=== PATIENT | female | born 1960 | race Caucasian/White ===

== ENCOUNTER 2020-05-17 15:03 | Inpatient (IN) | payer OTHER, SELFPAY ==
[2020-05-17 16:38] VITALS: BP 104/71; PULSE 109; RESP 20; TEMP 36.7; O2SAT 93; BMI 100.7
[2020-05-17 17:20] VITALS: BP 130/68; PULSE 108; RESP 19; TEMP 36.9; O2SAT 93
--- NOTE | 2020-05-17 17:26 | ECG_ITS ---
Test Reason : WEAKNESS Blood Pressure : / mmHG Vent. Rate : 105 BPM Atrial Rate : 105 BPM P-R Int : 166 ms QRS Dur : 098 ms QT Int : 378 ms P-R-T Axes : 080 103 054 degrees QTc Int : 499 ms Sinus tachycardia Right atrial enlargement Pulmonary disease pattern Incomplete right bundle branch block Septal infarct (cited on or before 26-JUN-2019) Abnormal ECG When compared with ECG of 26-JUN-2019 17:49, Incomplete right bundle branch block is now Present Questionable change in initial forces of Septal leads Referred By: Nichole Samuel Electronically Signed By:BRE HEATH MD
--- NOTE | 2020-05-17 17:26 | ED_ITS ---
HPI - General Adult General Chief complaint: General Medical Stated complaint: edema Time Seen by Provider: 05/17/20 18:34 Source: patient Mode of arrival: ambulatory Limitations: no limitations History of Present Illness HPI narrative: 59-year-old female with past medical history of bilateral lower extremity edema, type 2 diabetes presents with worsening edema and shortness of breath. She states that she has been using her Lasix more often and twice a day Over the past few weeks. She is supposed to take 40 mg per day but has been using 60 mg twice a day. she has shortness of breath on exertion, increased edema, swelling to her face and hands. She does not report any fevers or chills, chest pain pressure, palpitations, abdominal pain, abdominal distention, dysuria and hematuria. Onset (ago): week(s) Location: face, upper extremity and lower extremity Radiation: non-radiation Severity: moderate Severity scale (1-10): 7 Quality: aching Associated symptoms: shortness of breath Related Data Home Medications Medication Instructions Recorded Confirmed albuterol sulfate [Ventolin HFA] 2 puff INHALATION Q4H PRN 05/17/20 05/17/20 atorvastatin 10 mg tablet 10 mg PO DAILY 05/17/20 05/17/20 blood sugar diagnostic #10 ea 05/17/20 cholecalciferol (vitamin D3) 125 125 mcg PO DAILY 05/17/20 05/17/20 mcg (5,000 unit) capsule dulaglutide [Trulicity] 1.5 mg SUBCUT WE 05/17/20 05/17/20 furosemide 20 mg tablet 20 mg PO DAILY 05/17/20 05/17/20 furosemide 40 mg tablet 40 mg PO DAILY 05/17/20 05/17/20 lancets 28 gauge #100 ea 05/17/20 lisinopril 20 mg tablet 20 mg PO DAILY 05/17/20 05/17/20 metformin 1,000 mg PO BID 05/17/20 05/17/20 montelukast 10 mg tablet 10 mg PO DAILY 05/17/20 05/17/20 omeprazole 40 mg capsule,delayed 40 mg PO DAILY 05/17/20 05/17/20 release vitamin E 400 unit capsule 1 cap PO DAILY 05/17/20 05/17/20 Allergies Allergy/AdvReac Type Severity Reaction Status Date / Time erythromycin base Allergy Severe GI Verified 05/17/20 16:44 [From E-MYCIN] PAIN-SEVERE carvedilol Allergy Unknown upset Verified 01/18/20 00:00 stomach, sweats Review of Systems Review of Systems: Constitutional: Positive weight gain, No Fever, No Chills, No Night Sweats, No Fatigue, No Malaise ENT/Mouth: No Hearing loss, No Ear Pain, No Nasal Congestion, No Sinus Pain, No Hoarseness, No sore throat, No Rhinorrhea, No Swallowing Difficulty Eyes: No Eye Pain, No Swelling, No Redness, No Foreign Body, No Discharge, No Vision Changes Cardiovascular: positive edema to bilateral lower extremities and hands ,No Chest Pain, No SOB, No Dyspnea on Exertion, No Orthopnea, No Edema, No Palpitati ons Respiratory: positive shortness of breath, shortness of breath on exertion, No Cough, No Sputum, No Wheezing Gastrointestinal: No Nausea, No Vomiting, No Diarrhea, No Constipation, No abdominal Pain, No Hematochezia, No Melena Genitourinary: no irregular bleeding, No Dysuria, No Urinary Frequency, No Hematuria, No Urinary Incontinence, No Urgency, No Flank Pain, No Urinary Flow Changes, No Hesitancy Musculoskeletal: No joint pain, No Myalgias, No Joint Swelling Skin: No Skin Lesions, No rash Neuro: No Weakness, No Numbness, No Paresthesias, No Loss of Consciousness, No Dizziness, No Headache Psych: No Anxiety/Panic, No Depression, No SI/HI/AH/VH, No Social Issues Heme/Lymph: No Bruising, No Bleeding,No Lymphadenopathy Endocrine: No Polyuria, No Polydipsia, No Temperature Intolerance [facility] Past Medical History Attestation statement: The following information was validated with the patient. Medical History COPD (chronic obstructive pulmonary disease) Diabetes type 2, controlled Edema Tachycardia Social History Social History Alcohol intake: never Use of substances other than those prescribed or required for medical reasons: Yes Substance Use Type: Marijuana Substance Use Frequency: Occasionally Advance Directives: No Advance Directives Information Provided: Yes Physical Exam Vital Signs: Vital Signs: Last Vital Signs Temp 98.5 F 05/17/20 22:07 Pulse 100 05/17/20 22:07 Resp 19 05/17/20 22:07 BP 119/92 H 05/17/20 22:07 Pulse Ox 93 05/17/20 19:56 Body Mass Index 100.7 Appearance: Alert. Oriented X3. No acute distress. Head: Normal external exam. Normocephalic. Atraumatic. No [place] signs noted. No raccoon eyes noted Eyes: PERRLA. EOMI. Conjunctiva and sclera normal. Eyelids normal. ENT: TM's Normal. Pharynx normal. Uvula midline. Moist mucous membranes. No trismus noted. No drooling noted. No muffled voice noted. Neck: Normal inspection. Neck supple. No adenopathy. Thyroid Normal. No meningeal signs. No neck mass noted. CVS: Normal heart rate and rhythm. Heart sound normal. No murmurs noted. Pulses equal to all extremities. Respiratory: No respiratory distress. Painless inspiration. Breath sounds normal. No wheezes/rales/rhonchi noted. Chest nontender. No accessory muscle usage noted or decreased air movement noted. Abdomen: Soft and nontender. Bowel sounds normal in all 4 quadrants. No distention noted. No organomegaly noted. No visible injury noted. Back: No CVA tenderness. Full range of motion noted. Skin: Skin warm and dry. Normal skin color. Normal skin turgor. No rashes/lesions/lacerations noted. Extremities: No lower extremity edema. Extremities exhibit normal range of motion. Extremities nontender. Neuro: cranial nerves 2-12 intact, no focal neural deficits, strength 5/5 to all extremities, No motor deficit. No sensory deficit. Reflexes normal. Course Course Course Narrative: 59-year-old female with past medical history of edema, diabetes type 2 presents with Shortness of breath, shortness of breath on exertion, worsening edema To bilateral lower extremities, face, and hands. we will order chest x-ray, EKG, CBC, Chem 7, BNP. Plan of care to rule out ACS, CHF, and interstitial lung disease. She has +4 pitting edema to lower extremities up to the knee, hands are visibly swollen. Even though she did receive some Lasix earlier today we will give IV Lasix 60 mg. BNP elevated at 562 consistent with heart failure in the past June 26 2019 patient has had an elevated BNP in the 500 range but was never diagnosed with CHF. She was not admitted at that time. While patient does have Lasix at home, she has been managing her own and titrating without discussing her plan with her primary care physician. As she is taking as much as 60 mg twice a day over the past week we will discuss this case with hospitalist. magnesium 1.3 repleted with 2 g IV, troponin negative. BUN 20, glucose 231. while she does have a heart score of 4, ACS is highly unlikely Discussion with hospitalist regarding plan of care, plan is to admit for diuresis for CHF. Consultations Consultation #1: Tc Time: 22:00 Medical Decision Making Differential Diagnosis Differential Diagnosis: CHF, pneumonia, pulmonary edema, ACS Medical Records Medical records reviewed: Yes I reviewed the patient's medical records. Lab Data Lab results reviewed: Yes I reviewed the patient's lab results. Result diagrams: 05/17/20 20:16 05/17/20 20:16 Labs: Lab Results 05/17/20 05/17/20 05/17/20 Range/Units 18:00 18:00 18:00 WBC (4.8-10.8) X10*3/uL RBC (4.20-5.50) X10*6/uL Hgb (12.0-16.0) g/dl Hct (37-47) % MCV (80-98) fL MCH (27.0-33.0) pg MCHC (31.0-35.0) g/dl RDW (11.0-16.0) % Plt Count (160-400) X10*3/uL MPV (9.4-12.3) fL Immature Gran % (Auto) (0.0-0.4) % Neut % (Auto) (45-73) % Lymph % (Auto) (20-40) % Crook % (Auto) (2-11) % Eos % (Auto) (0-4) % Baso % (Auto) (0-2) % Lymph # (Auto) (1.2-4.9) X10*3/uL [place] # (Auto) (0.1-1.2) X10*3/uL Eos # (Auto) (0.0-0.4) X10*3/uL Baso # (Auto) (0.0-0.2) X10*3/uL Abs Immat Gran (auto) (0.00-0.03) X10*3/uL Absolute Neuts (auto) (2.0-8.3) X10*3/uL Absolute Nucleated RBC (0.0-0.012) X10*3/uL Nucleated RBC % (auto) (0.0-0.2) /100WBC Sodium (135-145) mmol/L Potassium (3.3-5.1) mmol/l Chloride (96-108) mmol/L Carbon Dioxide (22-29) mmol/L Anion Gap (12-20) BUN (9-16) mg/dL Creatinine (0.5-1.4) mg/dL Estim Creat Clear Calc Estimated GFR Random Glucose (60-115) mg/dL Calcium (8.4-10.2) mg/dL Magnesium 1.3 L* (1.6-2.6) mg/dL Troponin I High Sens 12.3 (<3.5-17.0) ng/L B-Natriuretic Peptide 562 H (<100) pg/mL Urine Color Urine Appearance Urine pH (5.0-8.0) Ur Specific [employer] (1.005-1.025) Urine Protein (NEG-TRACE) MG/DL Urine Glucose (UA) (NEG) MG/DL Urine Ketones (NEG) MG/DL Urine Blood (NEG) Urine Nitrite (NEG) Ur Leukocyte Esterase (NEG) COVID-19 (TIM) (Negative) COVID-19 Clin Com 05/17/20 05/17/20 05/17/20 Range/Units 18:53 20:16 20:16 WBC 10.5 (4.8-10.8) X10*3/uL RBC 4.46 (4.20-5.50) X10*6/uL Hgb 13.5 (12.0-16.0) g/dl Hct 42.2 (37-47) % MCV 94.6 (80-98) fL MCH 30.3 (27.0-33.0) pg MCHC 32.0 (31.0-35.0) g/dl RDW 15.2 (11.0-16.0) % Plt Count 221 (160-400) X10*3/uL MPV 11.2 (9.4-12.3) fL Immature Gran % (Auto) 0.5 H (0.0-0.4) % Neut % (Auto) 70.8 (45-73) % Lymph % (Auto) 20.5 (20-40) % [place]ok % (Auto) 6.9 (2-11) % Eos % (Auto) 1.0 (0-4) % Baso % (Auto) 0.3 (0-2) % Lymph # (Auto) 2.1 (1.2-4.9) X10*3/uL [place] # (Auto) 0.7 (0.1-1.2) X10*3/uL Eos # (Auto) 0.1 (0.0-0.4) X10*3/uL Baso # (Auto) 0.0 (0.0-0.2) X10*3/uL Abs Immat Gran (auto) 0.05 H (0.00-0.03) X10*3/uL Absolute Neuts (auto) 7.4 (2.0-8.3) X10*3/uL Absolute Nucleated RBC 0.000 (0.0-0.012) X10*3/uL Nucleated RBC % (auto) 0.0 (0.0-0.2) /100WBC Sodium 142 (135-145) mmol/L Potassium 3.5 (3.3-5.1) mmol/l Chloride 99 (96-108) mmol/L Carbon Dioxide 29 (22-29) mmol/L Anion Gap 18 (12-20) BUN 20 H (9-16) mg/dL Creatinine 0.91 (0.5-1.4) mg/dL Estim Creat Clear Calc 140.0 Estimated GFR > 60 Random Glucose 231 H (60-115) mg/dL Calcium 8.3 L (8.4-10.2) mg/dL Magnesium (1.6-2.6) mg/dL Troponin I High Sens (<3.5-17.0) ng/L B-Natriuretic Peptide (<100) pg/mL Urine Color YELLOW Urine Appearance CLEAR Urine pH 6.5 (5.0-8.0) Ur [employer] 1.020 (1.005-1.025) Urine Protein TRACE (NEG-TRACE) MG/DL Urine Glucose (UA) NEG (NEG) MG/DL Urine Ketones NEG (NEG) MG/DL Urine Blood NEG (NEG) Urine Nitrite NEG (NEG) Ur Leukocyte Esterase NEG (NEG) COVID-19 (TIM) (Negative) COVID-19 Clin Com 05/17/20 Range/Units 22:06 WBC (4.8-10.8) X10*3/uL RBC (4.20-5.50) X10*6/uL Hgb (12.0-16.0) g/dl Hct (37-47) % MCV (80-98) fL MCH (27.0-33.0) pg MCHC (31.0-35.0) g/dl RDW (11.0-16.0) % Plt Count (160-400) X10*3/uL MPV (9.4-12.3) fL Immature Gran % (Auto) (0.0-0.4) % Neut % (Auto) (45-73) % Lymph % (Auto) (20-40) % [place] % (Auto) (2-11) % Eos % (Auto) (0-4) % Baso % (Auto) (0-2) % Lymph # (Auto) (1.2-4.9) X10*3/uL [place] # (Auto) (0.1-1.2) X10*3/uL Eos # (Auto) (0.0-0.4) X10*3/uL Baso # (Auto) (0.0-0.2) X10*3/uL Abs Immat Gran (auto) (0.00-0.03) X10*3/uL Absolute Neuts (auto) (2.0-8.3) X10*3/uL Absolute Nucleated RBC (0.0-0.012) X10*3/uL Nucleated RBC % (auto) (0.0-0.2) /100WBC Sodium (135-145) mmol/L Potassium (3.3-5.1) mmol/l Chloride (96-108) mmol/L Carbon Dioxide (22-29) mmol/L Anion Gap (12-20) BUN (9-16) mg/dL Creatinine (0.5-1.4) mg/dL Estim Creat Clear Calc Estimated GFR Random Glucose (60-115) mg/dL Calcium (8.4-10.2) mg/dL Magnesium (1.6-2.6) mg/dL Troponin I High Sens (<3.5-17.0) ng/L B-Natriuretic Peptide (<100) pg/mL Urine Color Urine Appearance Urine pH (5.0-8.0) Ur [employer] (1.005-1.025) Urine Protein (NEG-TRACE) MG/DL Urine Glucose (UA) (NEG) MG/DL Urine Ketones (NEG) MG/DL Urine Blood (NEG) Urine Nitrite (NEG) Ur Leukocyte Esterase (NEG) COVID-19 (TIM) Negative (Negative) COVID-19 Clin Com See Note Imaging Data Chest x-ray: Attestation: I personally reviewed and interpreted this imaging study as follows: Radiologist's impression: TECHNIQUE: PA and lateral views of the chest were obtained. FINDINGS: The cardiac silhouette is prominent, though stable. The mediastinal and hilar contours are unremarkable. There are neither pleural effusions nor pneumothoraces. There are no consolidations. There is mild atelectasis or scarring at the right lung base. There is again noted to be a nodular density within the right midlung overlapping the anterior right fourth rib. The osseous structures are unremarkable. XR/XR chest 2V IMPRESSION: No consolidations. Mild atelectasis or scarring at the right lung base. 4 mm nodular density overlying the mid right lung unchanged from prior exam. Consider correlation with either bilateral oblique views or a chest CT for further tissue characterization. CT scan - chest: Attestation: I personally reviewed and interpreted this imaging study as follows: Radiologist's impression: FINDINGS: LUNGS: Lung nodules: Persistent 7 mm smooth bordered lung nodule right upper lobe axial image 21 series 4. This is unchanged since CAT scan 06/26/2019. Stability indicates this is a benign nodule. No additional lung nodules. No focal consolidation. No interstitial lung disease. No bronchiectasis. MEDIASTINUM: No mediastinal mass or significant lymphadenopathy. Thyroid unremarkable. Trace pericardial effusion. Heart size is mildly enlarged. PLEURA: There is no pleural effusion. No pleural mass or thickening. AXILLA: No lymphadenopathy. UPPER ABDOMEN: Unremarkable. OSSEOUS STRUCTURES: Multilevel degenerative spondylosis of the spine. CT/CT chest wo con IMPRESSION: 1. Stable 7 mm right upper lobe lung nodule unchanged since CAT scan 06/26/2019. Stability indicates a benign nodule. No new nodules present of the lung. 2. Cardiomegaly. Small pericardial effusion. ECG Data Attestation: I personally reviewed and interpreted this ECG as follows: Prior ECG tracings: available for review Interpretation: Vent. Rate : 105 BPM Atrial Rate : 105 BPM P-R Int : 166 ms QRS Dur : 098 ms QT Int : 378 ms P-R-T Axes : 080 103 054 degrees QTc Int : 499 ms Sinus tachycardia Right atrial enlargement Pulmonary disease pattern Incomplete right bundle branch block Possible Right ventricular hypertrophy Septal infarct (cited on or before 26-JUN-2019) Abnormal ECG When compared with ECG of 26-JUN-2019 17:49, Incomplete right bundle branch block is now Present Questionable change in initial forces of Septal leads date May 17, 2020 time 7:49 p.m. Scores Heart Score History: -1- moderately suspicious ECG: -1- non specific repolarization disturbance Age: -1- >45 - <65 Risk factory: -1- 1 or 2 risk factors Troponin: -0- < or = normal limit Score: 4 Risk: 16.6% Critical Care Time Critical Care Time Critical Care Time: Yes Total Critical Care Time: 60 Attestation: I have personally provided critical care time exclusive of time spent on separately billable procedures. Time includes review of laboratory data, radiology results, discussion with consultants, and monitoring for potential decompensation. Interventions were performed as documented. Discharge Plan Discharge Clinical Impression: Shortness of breath, Pedal edema Congestive heart failure Qualifiers: Heart failure type: systolic Heart failure chronicity: acute Qualified Code(s): I50.21 - Acute systolic (congestive) heart failure Patient Disposition: Admitted As Inpatient
[2020-05-17] MEDS: Furosemide 100 MG/10 ML VIAL 60 MG IVPUSH (18:04)
[2020-05-17 18:31] LABS: Magnesium 1.3 mg/dL (1.6-2.6)
[2020-05-17 18:35] LABS: B Type Natriuretic Peptide 562 pg/mL (<100)
[2020-05-17 18:36] LABS: Troponin-I High Sensitivity 12.3 ng/L (<3.5-17.0)
[2020-05-17 19:05] LABS: Glucose Urine UA NEG (NEG); Leukocyte Esterase Urine NEG (NEG); Nitrite Urine NEG (NEG); PH 6.5 (5.0-8.0); Urine Blood NEG (NEG); Urine Ketones NEG (NEG); Urine Protein TRACE MG/DL (NEG-TRACE)
[2020-05-17 19:07] LABS: Appearance Urine CLEAR; Color Urine YELLOW
[2020-05-17] MEDS: Acetaminophen 325 MG TABLET 650 MG PO (19:11)
[2020-05-17] MEDS: Magnesium Sulfate/H2O 2 GM/50 ML PIGGYBACK IV (19:12)
--- NOTE | 2020-05-17 19:20 | PC.NURSE ---
patient c/o 4-11/11 headache, provider notified and verbal order of tylenol 650 given, order placed, pt medicated with tylenol also mag started per order, will continue to monitor.
--- NOTE | 2020-05-17 19:41 | CT_ITS ---
EXAMINATION: CT CHEST WITHOUT CONTRAST CLINICAL INFORMATION: Lung nodule COMPARISON: CT of chest 06/26/2019 TECHNIQUE: Multidetector volumetric CT imaging of the chest was done. Axial MIP volume rendering provided. Sagittal and coronal reformatted images were obtained. This CT examination was performed using dose optimization techniques as appropriate, variously including the following: *Automated exposure control *Adjustment of mA and/or kV according to patient size (this includes techniques or standardized protocols for targeted exams where dose is matched to indication/reason for exam; i.e. extremities or head) *Use of iterative reconstruction technique DLP: 453 mGy-cm FINDINGS: LUNGS: Lung nodules: Persistent 7 mm smooth bordered lung nodule right upper lobe axial image 21 series 4. This is unchanged since CAT scan 06/26/2019. Stability indicates this is a benign nodule. No additional lung nodules. No focal consolidation. No interstitial lung disease. No bronchiectasis. MEDIASTINUM: No mediastinal mass or significant lymphadenopathy. Thyroid unremarkable. Trace pericardial effusion. Heart size is mildly enlarged. PLEURA: There is no pleural effusion. No pleural mass or thickening. AXILLA: No lymphadenopathy. UPPER ABDOMEN: Unremarkable. OSSEOUS STRUCTURES: Multilevel degenerative spondylosis of the spine. CT/CT chest wo con IMPRESSION: 1. Stable 7 mm right upper lobe lung nodule unchanged since CAT scan 06/26/2019. Stability indicates a benign nodule. No new nodules present of the lung. 2. Cardiomegaly. Small pericardial effusion.
[2020-05-17 19:56] VITALS: BP 123/59; PULSE 100; RESP 18; TEMP 36.9; O2SAT 93
[2020-05-17 20:22] LABS: Basophils Percent Auto 0.3 % (0-2); Eosinophils Absolute Auto 0.1 X10*3/uL (0.0-0.4); Hematocrit 42.2 % (37-47); Hemoglobin 13.5 g/dl (12.0-16.0); Imm Gran Abs Auto 0.05 X10*3/uL (0.00-0.03); Imm Gran Pct Auto 0.5 % (0.0-0.4); Lymphocytes Absolute Auto 2.1 X10*3/uL (1.2-4.9); Lymphocytes Percent Auto 20.5 % (20-40); MANUAL DIFF FLAG NO; Mean Corpuscular Hemoglobin 30.3 pg (27.0-33.0); Mean Corpuscular Volume 94.6 fL (80-98); Mean Platelet Volume 11.2 fL (9.4-12.3); Monocytes Absolute Auto 0.7 X10*3/uL (0.1-1.2); Monocytes Percent Auto 6.9 % (2-11); Neutrophils Absolute Auto 7.4 X10*3/uL (2.0-8.3); Neutrophils Percent Auto 70.8 % (45-73); Platelet Count 221 X10*3/uL (160-400); Red Blood Count 4.46 X10*6/uL (4.20-5.50); Red Cell Distribution Width 15.2 % (11.0-16.0); White Blood Count 10.5 X10*3/uL (4.8-10.8)
[2020-05-17 20:42] LABS: Anion Gap 18 (12-20); Blood Urea Nitrogen 20 mg/dL (9-16); Calcium 8.3 mg/dL (8.4-10.2); Carbon Dioxide 29 mmol/L (22-29); Chloride 99 mmol/L (96-108); Estimated Glomerular Filt Rate > 60; Glucose Random 231 mg/dL (60-115); Potassium 3.5 mmol/l (3.3-5.1); Sodium 142 mmol/L (135-145)
[2020-05-17 22:07] VITALS: BP 119/92; PULSE 100; RESP 19; TEMP 36.9
--- NOTE | 2020-05-17 22:08 | PC.NURSE ---
vitals obtained, covid swab obtained, pt is angry that she is still in the ed and doesnt have a room yet, will notify charge nurse about patient concern, will continue to monitor.
[2020-05-17 22:28] LABS: COVID-19 Test Negative (Negative); IDNOW Serial# 9DD0AD1C
--- NOTE | 2020-05-17 22:55 | PC.NURSE ---
called floor to give report, nurse will call ed back
[2020-05-18] VITALS (7 sets, daily range): BP systolic 102–131; BP diastolic 58–85; PULSE 88–100; RESP 17–19; TEMP 36.1–36.4; O2SAT 91–93; BMI 49.1
[2020-05-18 00:56] LABS: Glucose, Whole Blood 248 mg/dL (60-115)
[2020-05-18] MEDS: 0.9 % Sodium Chloride Flush 3 ML SYRINGE IVFLUSH ×3 (00:59→22:09)
[2020-05-18] MEDS: Enoxaparin Sodium 40 MG/0.4 ML SYRINGE SUBCUT (00:59)
[2020-05-18] MEDS: Furosemide 40 MG/4 ML VIAL IVPUSH (00:59)
--- NOTE | 2020-05-18 04:44 | PM.IMHP ---
History of Present Illness Date of Service: 05/17/20 Chief Complaint: leg swelling this is a 59-year-old female with past medical history of COPD, diabetes, hypertension, sleep apnea on CPAP, seasonal allergies, who presents to the hospital with complaints of lower extremity edema. Patient reports that her symptoms have been going on for about a month and half, she has been adjusting her furosemide by herself and taking between 60-80 mg which has been slightly helping but the swelling usually returns within few days. She reports dyspnea at baseline but increased this has increased recently. Dyspnea mostly with exertion but reports that that could be attributed to her allergies as well as housecleaning. She denies any orthopnea or PND, denies any chest pain or palpitations. She has no fever or chills, abdominal pain, no cough, no sputum production, diarrhea constipation, no urinary symptoms. patient does take diuretic at baseline but is not sure if she has congestive heart failure On arrival to the ED hemodynamically stable with no significant abnormal vitals. Labs are significant for BNP of 562, magnesium of 1.[address] shows stable 7 mm right upper lobe lung nodule, cardiomegaly, with small pericardial effusion past medical history: COPD/asthma, diabetes, hypertension, sleep apnea on CPAP, seasonal allergies, bronchitis Surgical history: Carpal tunnel, tubal ligation Social history: Significant for [place], diabetes, and pancreatic cancer in mother Shows show history: Comes from home, former smoker, denies any alcohol and smokes about 1 marijuana sometimes. Review of Systems Review of Systems: Yes all other systems are reviewed and are negative [facility] Medical History COPD (chronic obstructive pulmonary disease) Diabetes type 2, controlled Edema Tachycardia Social History Household Members: Other Housing: House Housing Other:: Granddaughter Do you presently have visiting nurse or other home services: No Alcohol intake: never Smoking Status: Former smoker Smoking Quit Date: 04/22/2019 Use of substances other than those prescribed or required for medical reasons: No Substance Use Type: Marijuana Substance Use Frequency: Occasionally Do you feel safe in your current relationship?: No Is there a partner from a previous relationship who is making you feel unsafe now?: No Are you made to feel afraid or neglected: No Advance Directives: No Advance Directives Information Provided: Yes Do you have thoughts of harming others: None Do you have a plan to hurt others: No Plan Recently lost weight without trying: No Meds Allergies Allergy/AdvReac Type Severity Reaction Status Date / Time erythromycin base Allergy Severe GI Verified 05/17/20 16:44 [From E-MYCIN] PAIN-SEVERE carvedilol Allergy Unknown upset Verified 01/18/20 00:00 stomach, sweats Home Medications Medication Instructions Recorded Confirmed Type albuterol sulfate [Ventolin HFA] 2 puff INHALATION Q4H PRN 05/17/20 05/17/20 History atorvastatin 10 mg tablet 10 mg PO DAILY 05/17/20 05/17/20 History blood sugar diagnostic #10 ea 05/17/20 History cholecalciferol (vitamin D3) 125 125 mcg PO DAILY 05/17/20 05/17/20 History mcg (5,000 unit) capsule dulaglutide [Trulicity] 1.5 mg SUBCUT WE 05/17/20 05/17/20 History furosemide 20 mg tablet 20 mg PO DAILY 05/17/20 05/17/20 History furosemide 40 mg tablet 40 mg PO DAILY 05/17/20 05/17/20 History lancets 28 gauge #100 ea 05/17/20 History lisinopril 20 mg tablet 20 mg PO DAILY 05/17/20 05/17/20 History metformin 1,000 mg PO BID 05/17/20 05/17/20 History montelukast 10 mg tablet 10 mg PO DAILY 05/17/20 05/17/20 History omeprazole 40 mg capsule,delayed 40 mg PO DAILY 05/17/20 05/17/20 History release vitamin E 400 unit capsule 1 cap PO DAILY 05/17/20 05/17/20 History Physical Exam Vital Signs and Narrative: Vital Signs: Last Vital Signs Temp 97.6 F 05/18/20 03:17 Pulse 100 05/18/20 03:17 Resp 19 05/18/20 03:17 BP 102/68 05/18/20 03:17 Pulse Ox 93 05/18/20 03:17 Body Mass Index 49.1 Const: General: cooperative and no acute distress Orientation/consciousness: patient oriented x3 Eyes: General: appearance normal, both eyes and all related structures Pupils: Equal, round and reactive pupils present Resp: Effort & Inspection: normal respiratory effort and able to speak in complete sentences Auscultation: clear to auscultation bilaterally Cardio: Rate: regular rate Rhythm: regular rhythm GI: Palpation (GI): Soft to palpation Auscultation: normal bowel sounds Skin: General skin exam: no rashes or lesions noted Neuro: General: patient oriented x3 Cranial nerves: Yes Equal, round and reactive pupils present Cognition (Neuro): normal cognition Extrem: Other: 1+ pedal edema bilaterally, General: Yes normal to inspection Results Labs CBC and Chem 7: 05/17/20 20:16 05/17/20 20:16 Labs: Laboratory Results - last 24 hr 05/17/20 05/17/20 05/17/20 18:00 18:00 18:00 MCV MCH MCHC RDW Plt Count MPV Immature Gran % (Auto) Neut % (Auto) Lymph % (Auto) [place] % (Auto) Eos % (Auto) Baso % (Auto) Lymph # (Auto) [place] # (Auto) Eos # (Auto) Baso # (Auto) Abs Immat Gran (auto) Absolute Neuts (auto) Absolute Nucleated RBC Nucleated RBC % (auto) Anion Gap Estim Creat Clear Calc Estimated GFR POC Glucose Random Glucose Calcium Magnesium 1.3 L* Troponin I High Sens 12.3 B-Natriuretic Peptide 562 H Urine Color Urine Appearance Urine pH Ur Specific [place] Urine Protein Urine Glucose (UA) Urine Ketones Urine Blood Urine Nitrite Ur Leukocyte Esterase COVID-19 (TIM) COVID-19 Clin Com 05/17/20 05/17/20 05/17/20 18:53 20:16 20:16 MCV 94.6 MCH 30.3 MCHC 32.0 RDW 15.2 Plt Count 221 MPV 11.2 Immature Gran % (Auto) 0.5 H Neut % (Auto) 70.8 Lymph % (Auto) 20.5 [place] % (Auto) 6.9 Eos % (Auto) 1.0 Baso % (Auto) 0.3 Lymph # (Auto) 2.1 [place] # (Auto) 0.7 Eos # (Auto) 0.1 Baso # (Auto) 0.0 Abs Immat Gran (auto) 0.05 H Absolute Neuts (auto) 7.4 Absolute Nucleated RBC 0.000 Nucleated RBC % (auto) 0.0 Anion Gap 18 Estim Creat Clear Calc 140.0 Estimated GFR > 60 POC Glucose Random Glucose 231 H Calcium 8.3 L Magnesium Troponin I High Sens B-Natriuretic Peptide Urine Color YELLOW Urine Appearance CLEAR Urine pH 6.5 Ur Specific [place] 1.020 Urine Protein TRACE Urine Glucose (UA) NEG Urine Ketones NEG Urine Blood NEG Urine Nitrite NEG Ur Leukocyte Esterase NEG COVID-19 (TIM) COVID-19 Clin Com 05/17/20 05/18/20 22:06 00:53 MCV MCH MCHC RDW Plt Count MPV Immature Gran % (Auto) Neut % (Auto) Lymph % (Auto) [place] % (Auto) Eos % (Auto) Baso % (Auto) Lymph # (Auto) [place] # (Auto) Eos # (Auto) Baso # (Auto) Abs Immat Gran (auto) Absolute Neuts (auto) Absolute Nucleated RBC Nucleated RBC % (auto) Anion Gap Estim Creat Clear Calc Estimated GFR POC Glucose 248 H Random Glucose Calcium Magnesium Troponin I High Sens B-Natriuretic Peptide Urine Color Urine Appearance Urine pH Ur Specific [place] Urine Protein Urine Glucose (UA) Urine Ketones Urine Blood Urine Nitrite Ur Leukocyte Esterase COVID-19 (TIM) Negative COVID-19 Clin Com See Note Imaging Radiologist's Impressions: Impressions Chest X-Ray 05/17/20 17:27 IMPRESSION: No consolidations. Mild atelectasis or scarring at the right lung base. 4 mm nodular density overlying the mid right lung unchanged from prior exam. Consider correlation with either bilateral oblique views or a chest CT for further tissue characterization. Chest CT 05/17/20 19:41 IMPRESSION: 1. Stable 7 mm right upper lobe lung nodule unchanged since CAT scan 06/26/2019. Stability indicates a benign nodule. No new nodules present of the lung. 2. Cardiomegaly. Small pericardial effusion. Assessment and Plan (1) CHF exacerbation: Status: Acute (2) Hypomagnesemia: Status: Acute (3) Sleep apnea: Status: Acute (4) Hypertension: Status: Acute (5) COPD (chronic obstructive pulmonary disease): Status: Acute (6) Diabetes type 2, controlled: Status: Acute this is a 59-year-old female with past medical history of as above who presents to the hospital with lower extremity edema as well as worsening dyspnea # CHF exacerbation - patient has elevated BNP, lower extremity edema, as well as dyspnea - last echo done was in which showed normal ejection fraction at that time - high sensitivity troponin of 12, denies any chest pain, no palpitations. - Unclear if this is a new onset CHF or as history of CHF since she has been on Lasix plan: - Will start her on Lasix 40 IV b.i.d. - close monitoring of I&O, low-sodium diet, daily weight - echocardiogram - cardiology consult - repeat troponin # hypomagnesemia - repleted in the ED - will follow level in a.m. # diabetes - start on low-dose sliding scale insulin - diabetic diet # COPD - no evidence of exacerbation, although patient does have increased dyspnea it appears more secondary to CHF, has no increasing cough and no sputum production. - Will continu her home Singulair, and p.r.n. albuterol # sleep apnea - reports noncompliance with CPAP and is not interested in getting when here DVT prophylaxis: [place]
[2020-05-18 05:31] LABS: MANUAL DIFF FLAG NO
[2020-05-18 05:35] LABS: Basophils Percent Auto 0.4 % (0-2); Eosinophils Absolute Auto 0.1 X10*3/uL (0.0-0.4); Eosinophils Percent Auto 0.8 % (0-4); Hematocrit 41.4 % (37-47); Hemoglobin 13.3 g/dl (12.0-16.0); Imm Gran Abs Auto 0.04 X10*3/uL (0.00-0.03); Imm Gran Pct Auto 0.5 % (0.0-0.4); Lymphocytes Absolute Auto 2.2 X10*3/uL (1.2-4.9); Lymphocytes Percent Auto 25.4 % (20-40); Mean Corpuscular HGB Conc 32.1 g/dl (31.0-35.0); Mean Corpuscular Hemoglobin 30.6 pg (27.0-33.0); Mean Corpuscular Volume 95.2 fL (80-98); Mean Platelet Volume 10.9 fL (9.4-12.3); Monocytes Absolute Auto 0.6 X10*3/uL (0.1-1.2); Neutrophils Absolute Auto 5.7 X10*3/uL (2.0-8.3); Neutrophils Percent Auto 65.9 % (45-73); Platelet Count 202 X10*3/uL (160-400); Red Blood Count 4.35 X10*6/uL (4.20-5.50); Red Cell Distribution Width 15.2 % (11.0-16.0); White Blood Count 8.6 X10*3/uL (4.8-10.8)
[2020-05-18 06:00] LABS: Magnesium 1.8 mg/dL (1.6-2.6)
[2020-05-18 06:01] LABS: Anion Gap 15 (12-20); Blood Urea Nitrogen 20 mg/dL (9-16); Calcium 8.1 mg/dL (8.4-10.2); Carbon Dioxide 30 mmol/L (22-29); Chloride 98 mmol/L (96-108); Creatinine Clr Calc Pharmacy 93.1; Estimated Glomerular Filt Rate > 60; Glucose Random 206 mg/dL (60-115); Potassium 3.3 mmol/l (3.3-5.1); Sodium 140 mmol/L (135-145); Troponin-I High Sensitivity 9.9 ng/L (<3.5-17.0)
[2020-05-18] MEDS: Omeprazole 40 MG CAPSULE.DR PO (07:24)
[2020-05-18 07:47] LABS: Glucose, Whole Blood 171 mg/dL (60-115)
[2020-05-18] MEDS: lisinopriL 20 MG TABLET PO (08:35)
[2020-05-18] MEDS: Cholecalciferol (Vitamin D3) 25 MCG TABLET 125 MCG PO (08:36)
[2020-05-18] MEDS: Insulin Lispro 100 UNIT/ML 3 ML VIAL SUBCUT ×4 (08:36→22:05)
--- NOTE | 2020-05-18 10:57 | HO.PM.IMPN ---
Subjective Subjective Date of Service: 05/18/20 Interval History: no sob, hasnt peed much, le edema slightly better Cardiovascular Cardiovascular: Reports no additional cardiovascular complaints Respiratory Respiratory: Reports no additional respiratory complaints Physical Exam Vital Signs: Vital Signs: Last Vital Signs Temp 97.0 F 05/18/20 07:38 Pulse 88 05/18/20 08:35 Resp 18 05/18/20 07:38 BP 119/85 05/18/20 08:35 Pulse Ox 93 05/18/20 07:38 Body Mass Index 49.1 General: AO X 3, no acute distress Resp: CTA bilateral CVS: S1,S2,RRR, 3+ edema GI: soft, non tender, non distended Neuro: motor grossly intact Psych: appropriate affect Objective Data Current Medications Generic Name Dose Route Start Last Admin Trade Name Freq PRN Reason Stop Dose Admin Acetaminophen 650 mg 05/18/20 00:03 Acetaminophen 325 Mg Tablet PO Q6H PRN Pain, Mild (Pain Scale 1-3) Albuterol Sulfate 2 puff 05/18/20 00:03 Albuterol Sulfate 90 Mcg 8 Gm Inhaler INHALE Q4H PRN Shortness Of Breath Atorvastatin Calcium 10 mg 05/18/20 09:00 05/18/20 08:45 Atorvastatin Calcium 10 Mg Tablet PO Not Given DAILY SARAHI Docusate Sodium 100 mg 05/18/20 00:03 Docusate Sodium 100 Mg Capsule PO DAILY PRN Constipation Enoxaparin Sodium 40 mg 05/18/20 01:00 05/18/20 00:59 Enoxaparin Sodium 40 Mg/0.4 Ml Syringe SUBCUT 40 mg Q24H SARAHI Administration Furosemide 40 mg 05/18/20 00:03 05/18/20 00:59 Furosemide 40 Mg/4 Ml Vial IVPUSH 40 mg Q12H SARAHI Administration Protocol Insulin Human Lispro 0 unit 05/18/20 07:30 05/18/20 08:36 Insulin Lispro 100 Unit/Ml 3 Ml Vial SUBCUT 2 [facility] Administration Protocol Lisinopril 20 mg 05/18/20 09:00 05/18/20 08:35 Lisinopril 20 Mg Tablet PO 20 mg DAILY SARAHI Administration Protocol Montelukast Sodium 10 mg 05/18/20 09:00 05/18/20 08:45 Montelukast Sodium 10 Mg Tablet PO Not Given DAILY SARAHI Omeprazole 40 mg 05/18/20 06:30 05/18/20 07:24 Omeprazole 40 Mg Capsule.Dr PO 40 mg DAILY@0630 SARAHI Administration Ondansetron HCl 4 mg 05/18/20 00:03 Ondansetron Hcl 4 Mg/2 Ml Vial IVPUSH Q8H PRN Nausea and Vomiting Pharmacy Consult 1 each 05/17/20 21:37 Consult Rx Perform Med Rec MISCELLANE ONCE PRN Consult order Sodium Chloride 3 ml 05/18/20 00:03 05/18/20 08:36 0.9 % Sodium Chloride Flush 3 Ml Syringe IVFLUSH 3 ml QSHIFT SARAHI Administration Vitamin D 125 mcg 05/18/20 09:00 05/18/20 08:36 Cholecalciferol (Vitamin D3) 25 Mcg Tablet PO 125 mcg DAILY SARAHI Administration Labs CBC & Chem 7: 05/18/20 05:07 05/18/20 05:07 Assessment and Plan (1) CHF exacerbation: Status: Acute (2) Hypomagnesemia: Status: Acute (3) Sleep apnea: Status: Acute (4) Hypertension: Status: Acute (5) COPD (chronic obstructive pulmonary disease): Status: Acute (6) Diabetes type 2, controlled: Status: Acute Assessment and Plan: 59-year-old female presented to the hospital with lower extremity edema acute on chronic diastolic chf with right sided CHF and pulmonary HTN change to lasix drip, follow up echo, cardio DM insulin morbid obesity weight loss COPD stable sleep apnea - reports noncompliance with CPAP and is not interested in getting when here
[2020-05-18 11:53] LABS: Glucose, Whole Blood 188 mg/dL (60-115)
--- NOTE | 2020-05-18 13:05 | PM.CNCAR ---
History of Present Illness History of Present Illness Date of Consult: May 18, 2020 Requesting physician: Ru Flaherty Chief complaint: CHF exacerbation Narrative: Thank you for inviting us in consultation on Laura for management of right heart congestive heart failure. She is a 59-year-old woman with prior history of significant pulmonary hypertension by echocardiogram last June and RV enlargement and failure. Her BNP during that time was in the mid 500 range. She was then started on diuretic therapy and a BNP had improved in the mid 200 range. She was last seen by Dr. Cruz in the office in August at which time she was doing well. Workup included evaluation by pulmonary thromboembolic disease and this was negative. It was felt that her pulmonary hypertension was related to Pickwickian syndrome and cor pulmonale and sleep apnea. She is currently not able to tolerate CPAP therapy at home. Over the last 2 months she has noticed that she started getting increasing shortness of breath as well as leg edema, abdominal distension. She also notice of face to be getting puffy. She also noticed that she had gained about 15 lb and was not responding to oral diuretic therapy and therefore decided to call her physician's office. She was then referred to the emergency room. In the emergency room she was noted to be fluid overloaded and BNP was again elevated the mid 500 range and she was admitted. She was given IV diuresis with bolus Lasix dose. She has only had very tepid response to diuresis. She continues to remain fluid overloaded. Denies any palpitations, lightheadedness, syncope. She says recently she was cleaning a basement and was exposed to a lot of dust and felt that some of the shortness of breath could be related to wheezing with exposure to dust. Review of Systems Constitutional: Constitutional: Denies body ache(s), Reports fatigue, Denies fever(s), Reports snoring and Reports weight gain Eyes: Eyes: Reports no additional eye complaints ENT: Reports system reviewed and no additional complaints, except as documented Cardiovascular: Cardiovascular: Reports Abdominal Distension, Denies chest pain, Reports leg edema, Reports dyspnea and Reports dyspnea on exertion Respiratory: Respiratory: Reports cough, Reports dyspnea, Reports dyspnea on exertion, Reports snoring and Reports wheezing Gastrointestinal: Gastrointestinal: Reports no additional gastrointestinal complaints Neurologic: Reports system reviewed and no additional complaints, except as documented Psychiatric: Psychiatric: Reports anxiety Endocrine: Endocrine: Reports no additional endocrine complaints and Reports fatigue Hematologic/Lymphatic: Hematologic/Lymphatic: Reports no additional hematologic/lymphatic complaints Allergic/Immunologic: Allergic/Immunologic: Reports no additional allergic/immunologic complaints and Reports wheezing PMFSH Past Medical History Medical History COPD (chronic obstructive pulmonary disease) Diabetes type 2, controlled Edema Enlarged RV (right ventricle) Pulmonary hypertension Sleep apnea Tachycardia Social History Social History Household Members: Other Housing: House Housing Other:: Granddaughter Do you presently have visiting nurse or other home services: No Alcohol intake: never Smoking Status: Former smoker Smoking Quit Date: 04/22/2019 Use of substances other than those prescribed or required for medical reasons: No Substance Use Type: Marijuana Substance Use Frequency: Occasionally Currently Displaying Signs/Symptoms of Drug Intoxication Withdrawal: No Do you feel safe in your current relationship?: No Is there a partner from a previous relationship who is making you feel unsafe now?: No Are you made to feel afraid or neglected: No Advance Directives: No Advance Directives Information Provided: Yes Do you have thoughts of harming others: None Do you have a plan to hurt others: No Plan Recently lost weight without trying: No Meds Allergies Allergy/AdvReac Type Severity Reaction Status Date / Time erythromycin base Allergy Severe GI Verified 05/17/20 16:44 [From E-MYCIN] PAIN-SEVERE carvedilol Allergy Unknown upset Verified 01/18/20 00:00 stomach, sweats Home Medications Medication Instructions Recorded Confirmed Type albuterol sulfate [Ventolin HFA] 2 puff INHALATION Q4H PRN 05/17/20 05/17/20 History atorvastatin 10 mg tablet 10 mg PO DAILY 05/17/20 05/17/20 History blood sugar diagnostic #10 ea 05/17/20 History cholecalciferol (vitamin D3) 125 125 mcg PO DAILY 05/17/20 05/17/20 History mcg (5,000 unit) capsule dulaglutide [Trulicity] 1.5 mg SUBCUT WE 05/17/20 05/17/20 History furosemide 20 mg tablet 20 mg PO DAILY 05/17/20 05/17/20 History furosemide 40 mg tablet 40 mg PO DAILY 05/17/20 05/17/20 History lancets 28 gauge #100 ea 05/17/20 History lisinopril 20 mg tablet 20 mg PO DAILY 05/17/20 05/17/20 History metformin 1,000 mg PO BID 05/17/20 05/17/20 History montelukast 10 mg tablet 10 mg PO DAILY 05/17/20 05/17/20 History omeprazole 40 mg capsule,delayed 40 mg PO DAILY 05/17/20 05/17/20 History release vitamin E 400 unit capsule 1 cap PO DAILY 05/17/20 05/17/20 History Physical Exam Vital Signs: Vital Signs: Last Vital Signs Temp 97.2 F 05/18/20 11:13 Pulse 95 05/18/20 11:13 Resp 18 05/18/20 11:13 BP 108/64 05/18/20 11:13 Pulse Ox 91 L 05/18/20 11:13 Body Mass Index 49.1 Const: General: cooperative, no acute distress, alert and awake Nutritional Appearance: obese morbidly obese Orientation/consciousness: patient oriented x3 Limitations: no limitations HENMT: Head: Yes normal to inspection, Yes normocephalic and Yes atraumatic Eyes: General: appearance normal, both eyes and all related structures Neck: Neck: Yes trachea midline, Yes supple and Yes JVD (Till angle of the jaw in sitting position) Chest: Chest palpation & inspection: normal inspection of the chest Resp: Effort & Inspection: normal respiratory effort Auscultation: clear to auscultation bilaterally Cardio: Palpation: other (Cannot appreciate PMI) Rate: regular rate Rhythm: regular rhythm Heart sounds: S1 normal heart sound present and S2 normal heart sound present GI: Inspection: Yes distended and Yes obesity Auscultation: normal bowel sounds Skin: General skin exam: no rashes or lesions noted and no ecchymosis Neuro: General: patient oriented x3 and no focal motor deficits Extrem: General: Yes edema (Significant bilateral edema up to thigh) Psych: Appearance: grossly normal Results Labs and Meds Result diagrams: 05/18/20 05:07 05/18/20 05:07 Lab results: Laboratory Results - last 24 hr 05/17/20 05/17/20 05/17/20 18:00 18:00 18:00 WBC RBC Hgb Hct MCV MCH MCHC RDW Plt Count MPV Immature Gran % (Auto) Neut % (Auto) Lymph % (Auto) [place] % (Auto) Eos % (Auto) Baso % (Auto) Lymph # (Auto) [place] # (Auto) Eos # (Auto) Baso # (Auto) Abs Immat Gran (auto) Absolute Neuts (auto) Absolute Nucleated RBC Nucleated RBC % (auto) Sodium Potassium Chloride Carbon Dioxide Anion Gap BUN Creatinine Estim Creat Clear Calc Estimated GFR POC Glucose Random Glucose Calcium Magnesium 1.3 L* Troponin I High Sens 12.3 B-Natriuretic Peptide 562 H Urine Color Urine Appearance Urine pH Ur Specific [place] Urine Protein Urine Glucose (UA) Urine Ketones Urine Blood Urine Nitrite Ur Leukocyte Esterase COVID-19 (TMI) [employer] 05/17/20 05/17/20 05/17/20 18:53 20:16 20:16 WBC 10.5 RBC 4.46 Hgb 13.5 Hct 42.2 MCV 94.6 MCH 30.3 MCHC 32.0 RDW 15.2 Plt Count 221 MPV 11.2 Immature Gran % (Auto) 0.5 H Neut % (Auto) 70.8 Lymph % (Auto) 20.5 [place] % (Auto) 6.9 Eos % (Auto) 1.0 Baso % (Auto) 0.3 Lymph # (Auto) 2.1 [place] # (Auto) 0.7 Eos # (Auto) 0.1 Baso # (Auto) 0.0 Abs Immat Gran (auto) 0.05 H Absolute Neuts (auto) 7.4 Absolute Nucleated RBC 0.000 Nucleated RBC % (auto) 0.0 Sodium 142 Potassium 3.5 Chloride 99 Carbon Dioxide 29 Anion Gap 18 BUN 20 H Creatinine 0.91 Estim Creat Clear Calc 140.0 Estimated GFR > 60 POC Glucose Random Glucose 231 H Calcium 8.3 L Magnesium Troponin I High Sens B-Natriuretic Peptide Urine Color YELLOW Urine Appearance CLEAR Urine pH 6.5 Ur Specific [place] 1.020 Urine Protein TRACE Urine Glucose (UA) NEG Urine Ketones NEG Urine Blood NEG Urine Nitrite NEG Ur Leukocyte Esterase NEG COVID-19 (TIM) COVID-19 [employer] 05/17/20 05/18/20 05/18/20 22:06 00:53 05:07 WBC 8.6 RBC 4.35 Hgb 13.3 Hct 41.4 MCV 95.2 MCH 30.6 MCHC 32.1 RDW 15.2 Plt Count 202 MPV 10.9 Immature Gran % (Auto) 0.5 H Neut % (Auto) 65.9 Lymph % (Auto) 25.4 [place] % (Auto) 7.0 Eos % (Auto) 0.8 Baso % (Auto) 0.4 Lymph # (Auto) 2.2 [place] # (Auto) 0.6 Eos # (Auto) 0.1 Baso # (Auto) 0.0 Abs Immat Gran (auto) 0.04 H Absolute Neuts (auto) 5.7 Absolute Nucleated RBC 0.000 Nucleated RBC % (auto) 0.0 Sodium Potassium Chloride Carbon Dioxide Anion Gap BUN Creatinine Estim Creat Clear Calc Estimated GFR POC Glucose 248 H Random Glucose Calcium Magnesium Troponin I High Sens B-Natriuretic Peptide Urine Color Urine Appearance Urine pH Ur Specific [place] Urine Protein Urine Glucose (UA) Urine Ketones Urine Blood Urine Nitrite Ur Leukocyte Esterase COVID-19 (TIM) Negative COVID-[employer] Com See Note 05/18/20 05/18/20 05/18/20 05:07 05:07 05:07 WBC RBC Hgb Hct MCV MCH MCHC RDW Plt Count MPV Immature Gran % (Auto) Neut % (Auto) Lymph % (Auto) [place] % (Auto) Eos % (Auto) Baso % (Auto) Lymph # (Auto) [place] # (Auto) Eos # (Auto) Baso # (Auto) Abs Immat Gran (auto) Absolute Neuts (auto) Absolute Nucleated RBC Nucleated RBC % (auto) Sodium 140 Potassium 3.3 Chloride 98 Carbon Dioxide 30 H Anion Gap 15 BUN 20 H Creatinine 0.83 Estim Creat Clear Calc 93.1 Estimated GFR > 60 POC Glucose Random Glucose 206 H Calcium 8.1 L Magnesium 1.8 Troponin I High Sens 9.9 B-Natriuretic Peptide Urine Color Urine Appearance Urine pH Ur Specific [place] Urine Protein Urine Glucose (UA) Urine Ketones Urine Blood Urine Nitrite Ur Leukocyte Esterase COVID-19 (TIM) [employer] 05/18/20 05/18/20 07:41 11:30 WBC RBC Hgb Hct MCV MCH MCHC RDW Plt Count MPV Immature Gran % (Auto) Neut % (Auto) Lymph % (Auto) [place] % (Auto) Eos % (Auto) Baso % (Auto) Lymph # (Auto) [place] # (Auto) Eos # (Auto) Baso # (Auto) Abs Immat Gran (auto) Absolute Neuts (auto) Absolute Nucleated RBC Nucleated RBC % (auto) Sodium Potassium Chloride Carbon Dioxide Anion Gap BUN Creatinine Estim Creat Clear Calc Estimated GFR POC Glucose 171 H 188 H Random Glucose Calcium Magnesium Troponin I High Sens B-Natriuretic Peptide Urine Color Urine Appearance Urine pH Ur Specific [place] Urine Protein Urine Glucose (UA) Urine Ketones Urine Blood Urine Nitrite Ur Leukocyte Esterase COVID-19 (TIM) COVID-19 Clin Com EKG shows sinus rhythm with pulmonary disease pattern with right ventricular enlargement right atrial enlargement and nonspecific ST T wave changes Assessment and Plan (1) Right heart failure: Status: Acute Predominantly right heart failure syndrome secondary to RV enlargement and known prior history of significant pulmonary hypertension. Etiology of pulmonary hypertension is not clear, see below. Clinically appears to be significantly fluid overloaded. Agree with IV diuresis with Lasix drip. Start on 5 mg an hour and monitor strict intake and output chart. If remains with inadequate diuresis, will increase Lasix to 10 mg an hour. Continue to trend BMP and BNP. Daily weight monitoring needs to be pursued. In the long run treatment should be directed towards diagnosis of pulmonary hypertension appropriate treatment for the same. (2) Enlarged RV (right ventricle): Status: Acute Enlarged right ventricle secondary pulmonary hypertension. Prognosis is is limited in this situation. Treatment directed towards diagnosis is an appropriate treatment for pulmonary hypertension. (3) Pulmonary hypertension: Status: Acute Pulmonary hypertension of not clear etiology. It is most likely contribution of multiple factors including Pickwickian syndrome related to obesity, untreated sleep apnea as well as underlying COPD. However pulmonary arterial hypertension is not completely ruled out. Also has possibility related to LV diastolic dysfunction and heart failure syndrome. She will most likely require right heart catheterization as outpatient. We discussed with Dr. Cruz about the same. In the long run aggressive treatment for underlying pulmonary disease as well as continue treatment for sleep apnea was discussed with patient. Aggressive weight loss program should also help with the same. Consider nocturnal oximetry to see if she will require nighttime oxygen supplementation therapy at home. Pulmonary consultation should be considered as well (4) Hypertension: Status: Acute Procedures Abscess I/D Date of Service: 05/18/20
[2020-05-18] MEDS: Furosemide 500 MG in Container,Empty 0 ML IVCONT (13:17)
--- NOTE | 2020-05-18 13:35 | MHC.CM.PN ---
Pt reports she lives at home with her 20 yo grand daughter. pt is independent with care and mobility. Pt uses a nebulizer PRN and has no home or community services. Pt does not have a HCP completed, she reports she will speak to her family and let T/W know if she decides she wants to complete one. Pts current DC plan is home with no services pt will self arrange transport
[2020-05-18] MEDS: ALPRAZolam 0.25 MG TABLET 0.125 MG PO (15:20)
[2020-05-18 16:52] LABS: Glucose, Whole Blood 187 mg/dL (60-115)
[2020-05-18] MEDS: Montelukast Sodium 10 MG TABLET PO (20:12)
[2020-05-18] MEDS: Atorvastatin Calcium 10 MG TABLET PO (20:12)
[2020-05-18 21:33] LABS: Glucose, Whole Blood 242 mg/dL (60-115)
[2020-05-19] VITALS (9 sets, daily range): BP systolic 91–117; BP diastolic 50–76; PULSE 86–101; RESP 18–20; TEMP 36.2–37; O2SAT 90–93; BMI 49.4
[2020-05-19] MEDS: Omeprazole 40 MG CAPSULE.DR PO (06:00)
[2020-05-19] MEDS: Enoxaparin Sodium 40 MG/0.4 ML SYRINGE SUBCUT (06:04)
[2020-05-19 07:23] LABS: MANUAL DIFF FLAG NO
[2020-05-19 07:35] LABS: Basophils Percent Auto 0.4 % (0-2); Eosinophils Absolute Auto 0.1 X10*3/uL (0.0-0.4); Eosinophils Percent Auto 0.8 % (0-4); Hematocrit 41.4 % (37-47); Hemoglobin 13.2 g/dl (12.0-16.0); Imm Gran Abs Auto 0.04 X10*3/uL (0.00-0.03); Imm Gran Pct Auto 0.4 % (0.0-0.4); Lymphocytes Absolute Auto 2.3 X10*3/uL (1.2-4.9); Lymphocytes Percent Auto 24.7 % (20-40); Mean Corpuscular HGB Conc 31.9 g/dl (31.0-35.0); Mean Corpuscular Hemoglobin 30.2 pg (27.0-33.0); Mean Corpuscular Volume 94.7 fL (80-98); Mean Platelet Volume 11.1 fL (9.4-12.3); Monocytes Absolute Auto 0.7 X10*3/uL (0.1-1.2); Monocytes Percent Auto 7.2 % (2-11); Neutrophils Absolute Auto 6.1 X10*3/uL (2.0-8.3); Neutrophils Percent Auto 66.5 % (45-73); Platelet Count 223 X10*3/uL (160-400); Red Blood Count 4.37 X10*6/uL (4.20-5.50); White Blood Count 9.1 X10*3/uL (4.8-10.8)
[2020-05-19] MEDS: Cholecalciferol (Vitamin D3) 25 MCG TABLET 125 MCG PO (08:13)
[2020-05-19] MEDS: lisinopriL 20 MG TABLET PO (08:13)
[2020-05-19 08:14] LABS: Blood Urea Nitrogen 26 mg/dL (9-16); Calcium 8.3 mg/dL (8.4-10.2); Carbon Dioxide 35 mmol/L (22-29); Chloride 97 mmol/L (96-108); Creatinine Clr Calc Pharmacy 85.2; Estimated Glomerular Filt Rate > 60; Glucose Fasting 203 mg/dL (60-99); Sodium 141 mmol/L (135-145)
[2020-05-19] MEDS: Insulin Lispro 100 UNIT/ML 3 ML VIAL SUBCUT ×4 (08:14→21:17)
[2020-05-19 08:15] LABS: Glucose, Whole Blood 197 mg/dL (60-115)
[2020-05-19] MEDS: 0.9 % Sodium Chloride Flush 3 ML SYRINGE IVFLUSH ×2 (08:19→21:18)
[2020-05-19 08:30] LABS: Anion Gap 13 (12-20); Potassium 4.1 mmol/l (3.3-5.1)
--- NOTE | 2020-05-19 10:52 | HO.PM.IMPN ---
Subjective Subjective Date of Service: 05/19/20 Interval History: some improvement, but slow Cardiovascular Cardiovascular: Reports no additional cardiovascular complaints Respiratory Respiratory: Reports no additional respiratory complaints Physical Exam Vital Signs: Vital Signs: Last Vital Signs Temp 97.8 F 05/19/20 07:40 Pulse 87 05/19/20 08:13 Resp 18 05/19/20 07:40 BP 103/76 05/19/20 08:13 Pulse Ox 92 05/19/20 07:40 Body Mass Index 49.4 General: AO X 3, no acute distress Resp: CTA bilateral CVS: S1,S2,RRR, 3+ edema GI: soft, non tender, non distended Neuro: motor grossly intact Psych: appropriate affect Objective Data Current Medications Generic Name Dose Route Start Last Admin Trade Name Freq PRN Reason Stop Dose Admin Acetaminophen 650 mg 05/18/20 00:03 Acetaminophen 325 Mg Tablet PO Q6H PRN Pain, Mild (Pain Scale 1-3) Albuterol Sulfate 2 puff 05/18/20 00:03 Albuterol Sulfate 90 Mcg 8 Gm Inhaler INHALE Q4H PRN Shortness Of Breath Alprazolam 0.125 mg 05/18/20 14:51 05/18/20 15:20 Alprazolam 0.25 Mg Tablet PO 0.125 mg TID PRN Administration Anxiety Atorvastatin Calcium 10 mg 05/18/20 21:00 05/18/20 20:12 Atorvastatin Calcium 10 Mg Tablet PO 10 mg BEDTIME SARAHI Administration Docusate Sodium 100 mg 05/18/20 00:03 Docusate Sodium 100 Mg Capsule PO DAILY PRN Constipation Enoxaparin Sodium 40 mg 05/19/20 06:00 05/19/20 06:04 Enoxaparin Sodium 40 Mg/0.4 Ml Syringe SUBCUT 40 mg Q24H SARAHI Administration Furosemide 500 mg/ IV 50 mls @ 1 mls/hr 05/19/20 10:45 Miscellaneous Supplies IVCONT .Q24H SARAHI 10 MG/HR Insulin Human Lispro 0 unit 05/18/20 07:30 05/19/20 08:14 Insulin Lispro 100 Unit/Ml 3 Ml Vial SUBCUT 2 unit QIDACHS SARAHI Administration Protocol Lisinopril 20 mg 05/18/20 09:00 05/19/20 08:13 Lisinopril 20 Mg Tablet PO 20 mg DAILY SARAHI Administration Protocol Montelukast Sodium 10 mg 05/18/20 21:00 05/18/20 20:12 Montelukast Sodium 10 Mg Tablet PO 10 mg BEDTIME SARAHI Administration Omeprazole 40 mg 05/18/20 06:30 05/19/20 06:00 Omeprazole 40 Mg Capsule.Dr PO 40 mg DAILY@0630 SARAHI Administration Ondansetron HCl 4 mg 05/18/20 00:03 Ondansetron Hcl 4 Mg/2 Ml Vial IVPUSH Q8H PRN Nausea and Vomiting Pharmacy Consult 1 each 05/17/20 21:37 Consult Rx Perform Med Rec MISCELLANE ONCE PRN Consult order Sodium Chloride 3 ml 05/18/20 00:03 05/19/20 08:19 0.9 % Sodium Chloride Flush 3 Ml Syringe IVFLUSH 3 ml QSHIFT SARAHI Administration Vitamin D 125 mcg 05/18/20 09:00 05/19/20 08:13 Cholecalciferol (Vitamin D3) 25 Mcg Tablet PO 125 mcg DAILY SARAHI Administration Labs CBC & Chem 7: 05/19/20 06:33 05/19/20 06:33 Assessment and Plan (1) CHF exacerbation: Status: Acute (2) Hypomagnesemia: Status: Acute (3) Sleep apnea: Status: Acute (4) Hypertension: Status: Acute (5) COPD (chronic obstructive pulmonary disease): Status: Acute (6) Diabetes type 2, controlled: Status: Acute Assessment and Plan: 59-year-old female presented to the hospital with lower extremity edema acute on chronic diastolic chf with right sided CHF and pulmonary HTN changed to lasix drip 5mg/hr yesterday, had some output but not much, will increase to 10mg/hr, follow up echo, cardio following DM insulin morbid obesity weight loss COPD stable sleep apnea - reports noncompliance with CPAP and is not interested in getting when here
--- NOTE | 2020-05-19 11:32 | P.PNCA_ITS ---
Subjective Subjective Principal diagnosis: right heart failure, pulmonary hypertension Interval history: patient says her shortness of breath has improved but still has not diuresed adequately. Still has leg edema. Denies orthopnea, PND. Review of Systems Constitutional: Reports no additional constitutional complaints Cardiovascular: Reports no additional cardiovascular complaints, Denies chest pain, Denies rapid heart rate and Reports dyspnea on exertion Respiratory: Denies hemoptysis, Denies excessive phlegm production and Reports dyspnea on exertion Gastrointestinal: Reports bloating Reports system reviewed and no additional complaints, except as documented Endocrine: Reports no additional endocrine complaints Hematologic/Lymphatic: Reports no additional hematologic/lymphatic complaints Physical Exam Vital Signs: Last Vital Signs Temp 97.8 F 05/19/20 11:23 Pulse 91 05/19/20 11:23 Resp 20 05/19/20 11:23 BP 91/62 05/19/20 11:23 Pulse Ox 92 05/19/20 11:23 Body Mass Index 49.4 Const General: cooperative, comfortable, no acute distress, alert and awake Nutritional Appearance: obese morbidly obese Orientation/consciousness: patient oriented x3 Limitations: no limitations HENMT Head: Yes normal to inspection, Yes normocephalic and Yes atraumatic Eyes General: appearance normal, both eyes and all related structures Neck Neck: Yes JVD Chest Chest palpation & inspection: normal inspection of the chest Resp Effort & Inspection: normal respiratory effort Auscultation: clear to auscultation bilaterally Cardio Jugular venous distension: JVD Rate: regular rate Rhythm: regular rhythm Heart sounds: S1 normal heart sound present and S2 normal heart sound present GI Inspection: Yes obesity Auscultation: normal bowel sounds Skin General skin exam: no rashes or lesions noted Neuro General: patient oriented x3 Extrem General: Yes edema Psych Appearance: grossly normal Results Labs and Meds Result diagrams: 05/19/20 06:33 05/19/20 06:33 Lab results: Laboratory Results - last 24 hr 05/18/20 05/18/20 05/18/20 11:30 16:41 21:28 WBC RBC Hgb Hct MCV MCH MCHC RDW Plt Count MPV Immature Gran % (Auto) Neut % (Auto) Lymph % (Auto) [place] % (Auto) Eos % (Auto) Baso % (Auto) Lymph # (Auto) [place] # (Auto) Eos # (Auto) Baso # (Auto) Abs Immat Gran (auto) Absolute Neuts (auto) Absolute Nucleated RBC Nucleated RBC % (auto) Sodium Potassium Chloride Carbon Dioxide Anion Gap BUN Creatinine Estim Creat Clear Calc Estimated GFR POC Glucose 188 H 187 H 242 H Fasting Glucose Calcium 05/19/20 05/19/20 05/19/20 06:33 06:33 07:43 WBC 9.1 RBC 4.37 Hgb 13.2 Hct 41.4 MCV 94.7 MCH 30.2 MCHC 31.9 RDW 15.0 Plt Count 223 MPV 11.1 Immature Gran % (Auto) 0.4 Neut % (Auto) 66.5 Lymph % (Auto) 24.7 [place] % (Auto) 7.2 Eos % (Auto) 0.8 Baso % (Auto) 0.4 Lymph # (Auto) 2.3 [place] # (Auto) 0.7 Eos # (Auto) 0.1 Baso # (Auto) 0.0 Abs Immat Gran (auto) 0.04 H Absolute Neuts (auto) 6.1 Absolute Nucleated RBC 0.000 Nucleated RBC % (auto) 0.0 Sodium 141 Potassium 4.1 D Chloride 97 Carbon Dioxide 35 H Anion Gap 13 BUN 26 H Creatinine 0.91 Estim Creat Clear Calc 85.2 Estimated GFR > 60 POC Glucose 197 H Fasting Glucose 203 H Calcium 8.3 L Progress Note: A&P Assessment and plan (1) Right heart failure: Status: Acute Assessment and Plan: Right heart failure secondary to significant pulmonary hypertension. Continue diuresis, patient still very fluid overloaded. Not adequate response to 5 mg an hour of Lasix drip. Increase to 10 mg an hour. Strict intake and output chart. Echocardiogram tomorrow. Follow electrolytes as well as BMP and BNP. Ambulate as tolerated. (2) Pulmonary hypertension: Status: Acute Assessment and Plan: Pulmonary hypertension could be multifactorial. Importance of CPAP therapy as outpatient was discussed. Requires more workup for her pulmonary hyp ertension especially to rule out pulmonary arterial hypertension, idiopathic which may require alternative therapy. Will be worked up as an outpatient. Fall Risk Details Current Medications: Current Medications Generic Name Dose Route Start Last Admin Trade Name Freq PRN Reason Stop Dose Admin Acetaminophen 650 mg 05/18/20 00:03 Acetaminophen 325 Mg Tablet PO Q6H PRN Pain, Mild (Pain Scale 1-3) Albuterol Sulfate 2 puff 05/18/20 00:03 Albuterol Sulfate 90 Mcg 8 Gm Inhaler INHALE Q4H PRN Shortness Of Breath Alprazolam 0.125 mg 05/18/20 14:51 05/18/20 15:20 Alprazolam 0.25 Mg Tablet PO 0.125 mg TID PRN Administration Anxiety Atorvastatin Calcium 10 mg 05/18/20 21:00 05/18/20 20:12 Atorvastatin Calcium 10 Mg Tablet PO 10 mg BEDTIME SARAHI Administration Docusate Sodium 100 mg 05/18/20 00:03 Docusate Sodium 100 Mg Capsule PO DAILY PRN Constipation Enoxaparin Sodium 40 mg 05/19/20 06:00 05/19/20 06:04 Enoxaparin Sodium 40 Mg/0.4 Ml Syringe SUBCUT 40 mg Q24H SARAHI Administration Furosemide 500 mg/ IV 50 mls @ 1 mls/hr 05/19/20 10:45 Miscellaneous Supplies IVCONT .Q24H SARAHI 10 MG/HR Insulin Human Lispro 0 unit 05/18/20 07:30 05/19/20 08:14 Insulin Lispro 100 Unit/Ml 3 Ml Vial SUBCUT 2 unit QIDACHS SARAHI Administration Protocol Lisinopril 20 mg 05/18/20 09:00 05/19/20 08:13 Lisinopril 20 Mg Tablet PO 20 mg DAILY SARAHI Administration Protocol Montelukast Sodium 10 mg 05/18/20 21:00 05/18/20 20:12 Montelukast Sodium 10 Mg Tablet PO 10 mg BEDTIME SARAHI Administration Omeprazole 40 mg 05/18/20 06:30 05/19/20 06:00 Omeprazole 40 Mg Capsule.Dr PO 40 mg DAILY@0630 SARAHI Administration Ondansetron HCl 4 mg 05/18/20 00:03 Ondansetron Hcl 4 Mg/2 Ml Vial IVPUSH Q8H PRN Nausea and Vomiting Pharmacy Consult 1 each 05/17/20 21:37 Consult Rx Perform Med Rec MISCELLANE ONCE PRN Consult order Sodium Chloride 3 ml 05/18/20 00:03 05/19/20 08:19 0.9 % Sodium Chloride Flush 3 Ml Syringe IVFLUSH 3 ml QSHIFT SARAHI Administration Vitamin D 125 mcg 05/18/20 09:00 05/19/20 08:13 Cholecalciferol (Vitamin D3) 25 Mcg Tablet PO 125 mcg DAILY SARAHI Administration Time Spent With Patient Time: Total time spent is greater than 50% in coordination of care (as document ed) at patient's floor/unit and/or counseling patient: Time with patient: 15 - 24 minutes Procedures Abscess I/D Date of Service: 05/19/20
[2020-05-19] MEDS: ALPRAZolam 0.25 MG TABLET 0.125 MG PO (11:33)
--- NOTE | 2020-05-19 11:35 | PC.NURSE ---
Pt stating she is feeling anxious, also had episode yesterday as well, asking for small to help with her anxiety- PRN 0.125mg Xanax given with great effect. Stating she is less anxious about her situation and CHF
[2020-05-19 11:46] LABS: Glucose, Whole Blood 224 mg/dL (60-115)
[2020-05-19] MEDS: Furosemide 500 MG in Container,Empty 0 ML IVCONT (11:58)
[2020-05-19] MEDS: Flu Vacc QS2020-21(6mos up)/PF 0.5 ML SYRINGE IM (12:16)
[2020-05-19 16:29] LABS: Glucose, Whole Blood 167 mg/dL (60-115)
[2020-05-19 20:56] LABS: Glucose, Whole Blood 197 mg/dL (60-115)
[2020-05-19] MEDS: Atorvastatin Calcium 10 MG TABLET PO (21:39)
[2020-05-19] MEDS: Montelukast Sodium 10 MG TABLET PO (21:39)
--- NOTE | 2020-05-20 00:03 | CA_ITS ---
Transthoracic Echocardiogram Patient (Last, First, Middle): Laura Golden J Gender: Female Date of : 1960 Age: 59 Procedure Date: 05/20/2020 Procedure Type: Transthoracic Echocardiogram Location[place] [facility] [place] Height: 157.48 cm Weight: 157.06 kg BSA: 2.41 m2 Heart Rate: bpm BP: 117 / 74 mmHg Material Handling Technician: Johanna MD: Baron Montez MD Symptoms: CHF exacerbation Study Quality: Fair ECG Rhythm: Sinus Conclusions: - The left ventricular systolic function is normal. The visually estimated ejection fraction is between 60-65%. - Moderately increased right ventricular cavity size. There is mildly decreased right ventricular systolic function. - The right atrium is severely dilated. - There is moderate tricuspid valve regurgitation. - Severe pulmonary hypertension is present. - There is a small pericardial effusion. Findings Left Ventricle Normal left ventricular cavity size. There is normal left ventricular wall thickness. The left ventricular systolic function is normal. The visually estimated ejection fraction is between 60-65%. There is no evidence of regional wall motion abnormalities. There is a flattened septum in systole consistent with right ventricular pressure overload. Diastolic function is indeterminate on the basis of available data. Right Ventricle Moderately increased right ventricular cavity size. There is mildly decreased right ventricular systolic function. Atria The left atrium is normal in size. The right atrium is severely dilated. Aortic Valve There is a normal trileaflet aortic valve. There is no aortic valve stenosis. There is no aortic valve regurgitation. Mitral Valve The mitral valve appears normal. There is trace mitral valve regurgitation. There is no mitral valve stenosis. Pulmonic Valve The pulmonic valve was not well visualized. There is trace pulmonic valve regurgitation. Tricuspid Valve Normal tricuspid valve structure. There is moderate tricuspid valve regurgitation. The right ventricular systolic pressure is 78 mmHg. Severe pulmonary hypertension is present. Great Vessels The aortic annulus, sinuses of valsalva, and asc aorta are normal in size. Venous The inferior vena cava is dilated and collapses less than 50% with inspiration. Pericardium/Pleural There is a small pericardial effusion. There are no definitive echocardiographic findings of tamponade physiology. Prior Study Comparison No significant change compared to prior study dated: 06/26/2019. Measurements 2D Linear Measurements RVIDd: 4.91 RVIDd Index: 2.04 IVSd: 0.82 0.6-0.9/0.6-1.0 cm LVIDd: 3.49 3.9-5.3/4.2-5.9 cm LVIDd Index: 1.45 2.4-3.2/2.2-3.1 cm/m2 LVIDs: 2.69 2.0-3.6 cm LVPWd: 1.63 0.7-1.1 cm Ao Root: 3.00 2.1-3.5 cm LA Diam: 3.80 2.7-3.8/3.0-4.0 cm LAIDs Index: 1.58 1.5-2.3 cm/m2 LV Mass: 173.76 67-162/88-224 g LV Mass Index: 72.10 43-95/49-115 g/m2 LVOT Diam: 1.80 3.0+(-)1.3 cm 2D Systolic Function EF 4C: 68.70 >55% Aortic Valve AoV Pk Chau: 1.54 AoV Mn Chau: 1.02 AoV VTI: 0.22 AoV Pk Grad: 9.00 Aov Mn Grad: 5.00 EVANS Cont.VTI: 2.11 LVOT LVOT Pk Chau: 1.14 LVOT Mn Chau: 0.76 LVOT VTI: 0.18 LVOT Pk Grad: 5.00 LVOT Mn Grad: 3.00 LVOT Diam: 1.80 LVOT Area: 2.54 Tricuspid Valve TR Pk Chau: 3.96 TR Pk Grad: 63.00 RA Press: 15.00 RVSP: 78.00 Great Vessels Aorta Ao Root-2D: 3.00 2.0-3.7 cm Ao Asc: 3.00 2.1-3.4 cm Ao Arch: 3.50 Updated in Other Vendor System with Status of Final Darryl Cruz MD electronically signed on 05/20/2020 12:35:31 PM with status of Final
[2020-05-20] MEDS: ALPRAZolam 0.25 MG TABLET 0.125 MG PO ×2 (00:12→14:15)
[2020-05-20 03:46] VITALS: BP 117/74; PULSE 87; RESP 18; TEMP 37; O2SAT 92
[2020-05-20 06:00] VITALS: BMI 49.4
[2020-05-20] MEDS: Omeprazole 40 MG CAPSULE.DR PO (06:15)
[2020-05-20] MEDS: Enoxaparin Sodium 40 MG/0.4 ML SYRINGE SUBCUT (06:15)
[2020-05-20 06:37] LABS: MANUAL DIFF FLAG NO
[2020-05-20 06:54] LABS: Basophils Percent Auto 0.4 % (0-2); Eosinophils Absolute Auto 0.1 X10*3/uL (0.0-0.4); Hematocrit 43.7 % (37-47); Hemoglobin 13.9 g/dl (12.0-16.0); Imm Gran Abs Auto 0.03 X10*3/uL (0.00-0.03); Imm Gran Pct Auto 0.4 % (0.0-0.4); Lymphocytes Absolute Auto 2.1 X10*3/uL (1.2-4.9); Lymphocytes Percent Auto 27.6 % (20-40); Mean Corpuscular HGB Conc 31.8 g/dl (31.0-35.0); Mean Corpuscular Hemoglobin 30.2 pg (27.0-33.0); Mean Corpuscular Volume 94.8 fL (80-98); Mean Platelet Volume 11.1 fL (9.4-12.3); Monocytes Absolute Auto 0.6 X10*3/uL (0.1-1.2); Monocytes Percent Auto 8.1 % (2-11); Neutrophils Absolute Auto 4.9 X10*3/uL (2.0-8.3); Neutrophils Percent Auto 62.5 % (45-73); Platelet Count 221 X10*3/uL (160-400); Red Blood Count 4.61 X10*6/uL (4.20-5.50); Red Cell Distribution Width 15.3 % (11.0-16.0); White Blood Count 7.8 X10*3/uL (4.8-10.8)
[2020-05-20 07:26] LABS: Anion Gap 16 (12-20); Blood Urea Nitrogen 23 mg/dL (9-16); Carbon Dioxide 29 mmol/L (22-29); Chloride 96 mmol/L (96-108); Creatinine Clr Calc Pharmacy 93.3; Estimated Glomerular Filt Rate > 60; Glucose Fasting 178 mg/dL (60-99); Magnesium 1.5 mg/dL (1.6-2.6); Potassium 3.4 mmol/l (3.3-5.1); Sodium 138 mmol/L (135-145)
[2020-05-20 07:29] VITALS: BP 111/57; PULSE 91
[2020-05-20] MEDS: lisinopriL 20 MG TABLET PO (07:29)
[2020-05-20] MEDS: Cholecalciferol (Vitamin D3) 25 MCG TABLET 125 MCG PO (07:30)
[2020-05-20] MEDS: 0.9 % Sodium Chloride Flush 3 ML SYRINGE IVFLUSH ×2 (07:30→18:39)
[2020-05-20 07:39] LABS: Glucose, Whole Blood 203 mg/dL (60-115)
[2020-05-20] MEDS: Potassium Chloride ER 20 MEQ TAB.ER.PRT 40 MEQ PO (07:42)
[2020-05-20] MEDS: Magnesium Oxide 400 MG TABLET 800 MG PO (07:45)
[2020-05-20 07:50] LABS: Calcium 7.8 mg/dL (8.4-10.2)
[2020-05-20 08:00] VITALS: BP 111/57; PULSE 97; RESP 18; TEMP 36.5; O2SAT 90
[2020-05-20] MEDS: Insulin Lispro 100 UNIT/ML 3 ML VIAL SUBCUT ×4 (08:12→20:33)
--- NOTE | 2020-05-20 10:50 | HO.PM.IMPN ---
Subjective Subjective Date of Service: 05/20/20 Interval History: some diuresis, but feels like has more to go Cardiovascular Cardiovascular: Reports no additional cardiovascular complaints Respiratory Respiratory: Reports no additional respiratory complaints Physical Exam Vital Signs: Vital Signs: Last Vital Signs Temp 98.6 F 05/20/20 03:46 Pulse 91 05/20/20 07:29 Resp 18 05/20/20 03:46 BP 111/57 L 05/20/20 07:29 Pulse Ox 92 05/20/20 03:46 Body Mass Index 49.4 General: AO X 3, no acute distress, cyanotic Resp: CTA bilateral CVS: S1,S2,RRR, 3+ edema but improved GI: soft, non tender, non distended Neuro: motor grossly intact Psych: appropriate affect Objective Data Current Medications Generic Name Dose Route Start Last Admin Trade Name Freq PRN Reason Stop Dose Admin Acetaminophen 650 mg 05/18/20 00:03 Acetaminophen 325 Mg Tablet PO Q6H PRN Pain, Mild (Pain Scale 1-3) Albuterol Sulfate 2 puff 05/18/20 00:03 Albuterol Sulfate 90 Mcg 8 Gm Inhaler INHALE Q4H PRN Shortness Of Breath Alprazolam 0.125 mg 05/18/20 14:51 05/20/20 00:12 Alprazolam 0.25 Mg Tablet PO 0.125 mg TID PRN Administration Anxiety Atorvastatin Calcium 10 mg 05/18/20 21:00 05/19/20 21:39 Atorvastatin Calcium 10 Mg Tablet PO 10 mg BEDTIME SARAHI Administration Docusate Sodium 100 mg 05/18/20 00:03 Docusate Sodium 100 Mg Capsule PO DAILY PRN Constipation Enoxaparin Sodium 40 mg 05/19/20 06:00 05/20/20 06:15 Enoxaparin Sodium 40 Mg/0.4 Ml Syringe SUBCUT 40 mg Q24H SARAHI Administration Furosemide 500 mg/ IV 50 mls @ 1 mls/hr 05/19/20 10:45 05/19/20 11:58 Miscellaneous Supplies IVCONT 10 mg/hr .Q24H SARAHI 1 mls/hr Administration 10 MG/HR Insulin Human Lispro 0 unit 05/18/20 07:30 05/20/20 08:12 Insulin Lispro 100 Unit/Ml 3 Ml Vial SUBCUT 4 unit QIDACHS SARAHI Administration Protocol Lisinopril 20 mg 05/18/20 09:00 05/20/20 07:29 Lisinopril 20 Mg Tablet PO 20 mg DAILY SARAHI Administration Protocol Montelukast Sodium 10 mg 05/18/20 21:00 05/19/20 21:39 Montelukast Sodium 10 Mg Tablet PO 10 mg BEDTIME SARAHI Administration Omeprazole 40 mg 05/18/20 06:30 05/20/20 06:15 Omeprazole 40 Mg Capsule.Dr PO 40 mg DAILY@0630 SARAHI Administration Ondansetron HCl 4 mg 05/18/20 00:03 Ondansetron Hcl 4 Mg/2 Ml Vial IVPUSH Q8H PRN Nausea and Vomiting Pharmacy Consult 1 each 05/17/20 21:37 Consult Rx Perform Med Rec MISCELLANE ONCE PRN Consult order Sodium Chloride 3 ml 05/18/20 00:03 05/20/20 07:30 0.9 % Sodium Chloride Flush 3 Ml Syringe IVFLUSH 3 ml QSHIFT SARAHI Administration Vitamin D 125 mcg 05/18/20 09:00 05/20/20 07:30 Cholecalciferol (Vitamin D3) 25 Mcg Tablet PO 125 mcg DAILY SARAHI Administration Labs CBC & Chem 7: 05/20/20 05:47 05/20/20 05:47 Assessment and Plan (1) CHF exacerbation: Status: Acute (2) Hypomagnesemia: Status: Acute (3) Sleep apnea: Status: Acute (4) Hypertension: Status: Acute (5) COPD (chronic obstructive pulmonary disease): Status: Acute (6) Diabetes type 2, controlled: Status: Acute Assessment and Plan: 59-year-old female presented to the hospital with lower extremity edema acute on chronic diastolic chf with right sided CHF and pulmonary HTN changed to lasix drip from 5mg/hr to 10mg/hr yesterday, follow up echo, cardio following hypoxic on exertion, possibly chronic would test for home o2 prior to discharge DM insulin morbid obesity weight loss COPD stable sleep apnea - reports noncompliance with CPAP and is not interested in getting when here
--- NOTE | 2020-05-20 11:19 | P.PNCA_ITS ---
Subjective Subjective Principal diagnosis: right heart failure, pulmonary hypertension Interval history: Continues to have leg swelling. Shortness of breath is at baseline. Review of Systems Review of Systems Cardiac-positive for shortness of breath. Positive for leg swelling. Negative for angina. Negative for palpitations or syncopal episodes. Respiratory- positive for shortness of breath. Remainder of the 10 system review negative. Physical Exam Vital Signs: Last Vital Signs Temp 98.6 F 05/20/20 03:46 Pulse 91 05/20/20 07:29 Resp 18 05/20/20 03:46 BP 111/57 L 05/20/20 07:29 Pulse Ox 92 05/20/20 03:46 Body Mass Index 49.4 Comfortable, no distress No pallor, icterus or cyanosis HEENT -unremarkable JVD- normal Cardiac- normal heart sounds, no murmurs, gallops or rubs, normal PMI Respiratory-normal breath sounds bilaterally, no crackles, no wheeze Abdomen- soft, nontender Neuro- alert and oriented Lower extremities- 2+ edema, warm well perfused Results Labs and Meds Result diagrams: 05/20/20 05:47 05/20/20 05:47 Lab results: Laboratory Results - last 24 hr 05/19/20 05/19/20 05/19/20 11:25 16:20 20:52 WBC RBC Hgb Hct MCV MCH MCHC RDW Plt Count MPV Immature Gran % (Auto) Neut % (Auto) Lymph % (Auto) [place] % (Auto) Eos % (Auto) Baso % (Auto) Lymph # (Auto) [place] # (Auto) Eos # (Auto) Baso # (Auto) Abs Immat Gran (auto) Absolute Neuts (auto) Absolute Nucleated RBC Nucleated RBC % (auto) Sodium Potassium Chloride Carbon Dioxide Anion Gap BUN Creatinine Estim Creat Clear Calc Estimated GFR POC Glucose 224 H 167 H 197 H Fasting Glucose Calcium Magnesium 05/20/20 05/20/20 05/20/20 05:47 05:47 07:35 WBC 7.8 RBC 4.61 Hgb 13.9 Hct 43.7 MCV 94.8 MCH 30.2 MCHC 31.8 RDW 15.3 Plt Count 221 MPV 11.1 Immature Gran % (Auto) 0.4 Neut % (Auto) 62.5 Lymph % (Auto) 27.6 [place] % (Auto) 8.1 Eos % (Auto) 1.0 Baso % (Auto) 0.4 Lymph # (Auto) 2.1 [place] # (Auto) 0.6 Eos # (Auto) 0.1 Baso # (Auto) 0.0 Abs Immat Gran (auto) 0.03 Absolute Neuts (auto) 4.9 Absolute Nucleated RBC 0.000 Nucleated RBC % (auto) 0.0 Sodium 138 Potassium 3.4 Chloride 96 Carbon Dioxide 29 Anion Gap 16 BUN 23 H Creatinine 0.83 Estim Creat Clear Calc 93.3 Estimated GFR > 60 POC Glucose 203 H Fasting Glucose 178 H Calcium 7.8 L D Magnesium 1.5 L Progress Note: A&P Assessment and plan (1) Acute on chronic right heart failure: Status: Acute (2) Pulmonary hypertension: Status: Acute Assessment and Plan: She appears to be still volume overloaded. Probably all her heart failure related to obesity/ sleep apnea. Continue with IV diuretics. Will review echocardiogram. Will likely require pulmonary hypertension workup in the [facility] Fall Risk Details Current Medications: Current Medications Generic Name Dose Route Start Last Admin Trade Name Freq PRN Reason Stop Dose Admin Acetaminophen 650 mg 05/18/20 00:03 Acetaminophen 325 Mg Tablet PO Q6H PRN Pain, Mild (Pain Scale 1-3) Albuterol Sulfate 2 puff 05/18/20 00:03 Albuterol Sulfate 90 Mcg 8 Gm Inhaler INHALE Q4H PRN Shortness Of Breath Alprazolam 0.125 mg 05/18/20 14:51 05/20/20 00:12 Alprazolam 0.25 Mg Tablet PO 0.125 mg TID PRN Administration Anxiety Atorvastatin Calcium 10 mg 05/18/20 21:00 05/19/20 21:39 Atorvastatin Calcium 10 Mg Tablet PO 10 mg BEDTIME SARAHI Administration Docusate Sodium 100 mg 05/18/20 00:03 Docusate Sodium 100 Mg Capsule PO DAILY PRN Constipation Enoxaparin Sodium 40 mg 05/19/20 06:00 05/20/20 06:15 Enoxaparin Sodium 40 Mg/0.4 Ml Syringe SUBCUT 40 mg Q24H SARAHI Administration Furosemide 500 mg/ IV 50 mls @ 1 mls/hr 05/19/20 10:45 05/19/20 11:58 Miscellaneous Supplies IVCONT 10 mg/hr .Q24H SARAHI 1 mls/hr Administration 10 MG/HR Insulin Human Lispro 0 unit 05/18/20 07:30 05/20/20 08:12 Insulin Lispro 100 Unit/Ml 3 Ml Vial SUBCUT 4 unit QIDACHS ON LICENSE OF [facility] Administration Protocol Lisinopril 20 mg 05/18/20 09:00 05/20/20 07:29 Lisinopril 20 Mg Tablet PO 20 mg DAILY SARAHI Administration Protocol Montelukast Sodium 10 mg 05/18/20 21:00 05/19/20 21:39 Montelukast Sodium 10 Mg Tablet PO 10 mg BEDTIME SARAHI Administration Omeprazole 40 mg 05/18/20 06:30 05/20/20 06:15 Omeprazole 40 Mg Capsule.Dr PO 40 mg DAILY@0630 ON LICENSE OF [facility] Administration Ondansetron HCl 4 mg 05/18/20 00:03 Ondansetron Hcl 4 Mg/2 Ml Vial IVPUSH Q8H PRN Nausea and Vomiting Pharmacy Consult 1 each 05/17/20 21:37 Consult Rx Perform Med Rec MISCELLANE ONCE PRN Consult order Sodium Chloride 3 ml 05/18/20 00:03 05/20/20 07:30 0.9 % Sodium Chloride Flush 3 Ml Syringe IVFLUSH 3 ml QSHIFT ON LICENSE OF [facility] Administration Vitamin D 125 mcg 05/18/20 09:00 05/20/20 07:30 Cholecalciferol (Vitamin D3) 25 Mcg Tablet PO 125 mcg DAILY SARAHI Administration Time Spent With Patient Time: Total time spent is greater than 50% in coordination of care (as docum ented) at patient's floor/unit and/or counseling patient: Time with patient: 15 - 24 minutes Procedures Abscess I/D Date of Service: 05/20/20
[2020-05-20 11:23] LABS: Glucose, Whole Blood 183 mg/dL (60-115)
[2020-05-20] MEDS: Furosemide 500 MG in Container,Empty 0 ML IVCONT (11:30)
[2020-05-20 11:38] VITALS: BMI 49.4
--- NOTE | 2020-05-20 12:00 | MHC.CM.PN ---
Goal for dc is home no services. Patient MAY require new O2 in the home and therefor may benefit from RN/VNA visits. CM will continue to follow for dc planning.
[2020-05-20 13:57] LABS: Influenza A PCR NEGATIVE (Negative); Influenza B PCR NEGATIVE (Negative); Resp Syncy Virus RNA Qual PCR NEGATIVE (Negative); SARS COV2 PCR INHOUSE NEGATIVE (Negative)
[2020-05-20 15:07] VITALS: BP 113/69; PULSE 96; RESP 18; TEMP 36.6; O2SAT 94
[2020-05-20 16:27] LABS: Glucose, Whole Blood 189 mg/dL (60-115)
[2020-05-20 19:20] VITALS: BP 121/67; PULSE 91; RESP 20; TEMP 36.7; O2SAT 92
--- NOTE | 2020-05-20 19:26 | PC.NURSE ---
p-patient on lasix drip ,would like to take a shower i-dr. Flaherty notified e-ok for the patient to be disconected and have a shower
[2020-05-20 20:33] LABS: Glucose, Whole Blood 203 mg/dL (60-115)
[2020-05-20] MEDS: Montelukast Sodium 10 MG TABLET PO (20:33)
[2020-05-20] MEDS: Atorvastatin Calcium 10 MG TABLET PO (20:33)
[2020-05-20 23:29] VITALS: BP 131/82; PULSE 103; RESP 20; TEMP 36.9; O2SAT 94
--- NOTE | 2020-05-21 | NM_ITS ---
EXAMINATION: PULMONARY PERFUSION STUDY CLINICAL INFORMATION: RHF eval for chronic VTE. COMPARISON: No previous lung scan is available for comparison. Radiographs of the chest dated 05/17/2020 are available for comparison. CT scan of the chest on the same date is also available. TECHNIQUE: Following the intravenous administration of 4.0 mCi Tc-99m MAA an 8-view perfusion study was performed using a dual detector gamma scintillation camera. No ventilation images were obtained. FINDINGS: Perfusion images: No segmental perfusion defects are present. There is minimal heterogeneity present bilaterally but no focal anatomic appearing perfusion defects are present. The cardiac silhouette is moderately dilated. The chest CT scan dated 05/17/2020 shows cardiomegaly and a trace pericardial effusion. NM/NM pul perfusion IMPRESSION: Very low probability of pulmonary embolism. Cardiomegaly.
[2020-05-21 04:00] VITALS: BP 128/58; PULSE 95; RESP 18; TEMP 37; O2SAT 92
[2020-05-21] MEDS: Enoxaparin Sodium 40 MG/0.4 ML SYRINGE SUBCUT (05:59)
[2020-05-21] MEDS: Omeprazole 40 MG CAPSULE.DR PO (05:59)
[2020-05-21 06:00] VITALS: BMI 49.3
[2020-05-21 06:50] LABS: INTERNATIONAL NORM RATIO 1.1 (0.9-1.1); Prothrombin Time 12.7 SEC (10.8-13.0)
[2020-05-21 07:09] LABS: Blood Urea Nitrogen 25 mg/dL (9-16); Calcium 8.2 mg/dL (8.4-10.2); Creatinine Clr Calc Pharmacy 88.9; Estimated Glomerular Filt Rate > 60; Glucose Fasting 205 mg/dL (60-99)
[2020-05-21 07:24] LABS: Anion Gap 16 (12-20); Carbon Dioxide 31 mmol/L (22-29); Chloride 97 mmol/L (96-108); Potassium 4.2 mmol/l (3.3-5.1); Sodium 140 mmol/L (135-145)
[2020-05-21 07:51] LABS: Glucose, Whole Blood 199 mg/dL (60-115)
[2020-05-21 07:57] VITALS: BP 118/73; PULSE 89; RESP 20; TEMP 36.6; O2SAT 93
[2020-05-21] MEDS: lisinopriL 20 MG TABLET PO (08:01)
[2020-05-21] MEDS: Cholecalciferol (Vitamin D3) 25 MCG TABLET 125 MCG PO (08:01)
[2020-05-21] MEDS: Insulin Lispro 100 UNIT/ML 3 ML VIAL SUBCUT ×4 (08:02→20:44)
--- NOTE | 2020-05-21 10:12 | P.PNCA_ITS ---
Subjective Subjective Principal diagnosis: right heart failure, pulmonary hypertension Interval history: She states that she is feeling better. She is still volume overload but improved from before. Shortness of breath is at baseline. Review of Systems Review of Systems Cardiac- positive for shortness of breath. Positive for leg swelling. Negative for angina, dizziness, syncopal episodes. Yes all other systems are reviewed and are negative Physical Exam Vital Signs: Last Vital Signs Temp 97.9 F 05/21/20 07:57 Pulse 89 05/21/20 07:57 Resp 20 05/21/20 07:57 BP 118/73 05/21/20 07:57 Pulse Ox 93 05/21/20 07:57 Body Mass Index 49.3 Comfortable, no distress No pallor, icterus or cyanosis HEENT -unremarkable JVD- normal Cardiac- normal heart sounds, no murmurs, gallops or rubs, normal PMI Respiratory-normal breath sounds bilaterally, no crackles, no wheeze Abdomen- soft, nontender Neuro- alert and oriented Lower extremities- 2+ edema, warm well perfused Results Labs and Meds Result diagrams: 05/20/20 05:47 05/21/20 06:08 Lab results: Laboratory Results - last 24 hr 05/20/20 05/20/20 05/20/20 11:15 13:00 13:00 PT INR Sodium Potassium Chloride Carbon Dioxide Anion Gap BUN Creatinine Estim Creat Clear Calc Estimated GFR POC Glucose 183 H Fasting Glucose Calcium Coronavirus (PCR) NEGATIVE COVID- (TIM) Cancelled COVID Clin Com Cancelled Influenza Type A (PCR) NEGATIVE Influenza Type B (PCR) NEGATIVE RSV RNA Qual (PCR) NEGATIVE 05/20/20 05/20/20 05/21/20 16:16 20:23 06:08 PT 12.7 INR 1.1 Sodium Potassium Chloride Carbon Dioxide Anion Gap BUN Creatinine Estim Creat Clear Calc Estimated GFR POC Glucose 189 H 203 H Fasting Glucose Calcium Coronavirus (PCR) COVID-19 (TIM) COVID-19 Clin Com Influenza Type A (PCR) Influenza Type B (PCR) RSV RNA Qual (PCR) 05/21/20 05/21/20 06:08 07:43 PT INR Sodium 140 Potassium 4.2 D Chloride 97 Carbon Dioxide 31 H Anion Gap 16 BUN 25 H Creatinine 0.87 Estim Creat Clear Calc 88.9 Estimated GFR > 60 POC Glucose 199 H Fasting Glucose 205 H Calcium 8.2 L Coronavirus (PCR) COVID-19 (TIM) COVID-19 Clin Com Influenza Type A (PCR) Influenza Type B (PCR) RSV RNA Qual (PCR) Progress Note: A&P Assessment and plan (1) Acute on chronic right heart failure: Status: Acute (2) Pulmonary hypertension: Status: Acute Assessment and Plan: She appears to be still volume overloaded. Probably right heart failure re lated to obesity/ sleep apnea. Continue with IV diuretics. Add Metolazone. Check VQ scan for chronic PE as etiology for pulmonary hypertension. However, sleep apnea still the most likely cause as she has not been using her CPAP mask at home. Fall Risk Details Current Medications: Current Medications Generic Name Dose Route Start Last Admin Trade Name Freq PRN Reason Stop Dose Admin Acetaminophen 650 mg 05/18/20 00:03 Acetaminophen 325 Mg Tablet PO Q6H PRN Pain, Mild (Pain Scale 1-3) Albuterol Sulfate 2 puff 05/18/20 00:03 Albuterol Sulfate 90 Mcg 8 Gm Inhaler INHALE Q4H PRN Shortness Of Breath Alprazolam 0.125 mg 05/18/20 14:51 05/20/20 14:15 Alprazolam 0.25 Mg Tablet PO 0.125 mg TID PRN Administration Anxiety Atorvastatin Calcium 10 mg 05/18/20 21:00 05/20/20 20:33 Atorvastatin Calcium 10 Mg Tablet PO 10 mg BEDTIME SARAHI Administration Docusate Sodium 100 mg 05/18/20 00:03 Docusate Sodium 100 Mg Capsule PO DAILY PRN Constipation Enoxaparin Sodium 40 mg 05/19/20 06:00 05/21/20 05:59 Enoxaparin Sodium 40 Mg/0.4 Ml Syringe SUBCUT 40 mg Q24H SARAHI Administration Furosemide 500 mg/ IV 50 mls @ 1 mls/hr 05/19/20 10:45 05/20/20 11:30 Miscellaneous Supplies IVCONT 10 mg/hr .Q24H SARAHI 1 mls/hr Administration 10 MG/HR Insulin Human Lispro 0 unit 05/18/20 07:30 05/21/20 08:02 Insulin Lispro 100 Unit/Ml 3 Ml Vial SUBCUT 2 unit QIDACHS SARAHI Administration Protocol Lisinopril 20 mg 05/18/20 09:00 05/21/20 08:01 Lisinopril 20 Mg Tablet PO 20 mg DAILY SARAHI Administration Protocol Metolazone 5 mg 05/21/20 09:30 Metolazone 5 Mg Tablet PO DAILY [facility] Montelukast Sodium 10 mg 05/18/20 21:00 05/20/20 20:33 Montelukast Sodium 10 Mg Tablet PO 10 mg BEDTIME SARAHI Administration Omeprazole 40 mg 05/18/20 06:30 05/21/20 05:59 Omeprazole 40 Mg Capsule.Dr PO 40 mg DAILY@0630 SARAHI Administration Ondansetron HCl 4 mg 05/18/20 00:03 Ondansetron Hcl 4 Mg/2 Ml Vial IVPUSH Q8H PRN Nausea and Vomiting Pharmacy Consult 1 each 05/17/20 21:37 Consult Rx Perform Med Rec MISCELLANE ONCE PRN Consult order Sodium Chloride 3 ml 05/18/20 00:03 05/21/20 08:02 0.9 % Sodium Chloride Flush 3 Ml Syringe IVFLUSH Not Given QSHIFT [facility] Vitamin D 125 mcg 05/18/20 09:00 05/21/20 08:01 Cholecalciferol (Vitamin D3) 25 Mcg Tablet PO 125 mcg DAILY SARAHI Administration Time Spent With Patient Time: Total time spent is greater than 50% in coordination of care (as documented) at patient's floor/unit and/or counseling patient: Time with patient: 15 - 24 minutes Procedures Abscess I/D Date of Service: 05/21/20
[2020-05-21] MEDS: metOLazone 5 MG TABLET PO (10:13)
[2020-05-21 11:26] LABS: Glucose, Whole Blood 212 mg/dL (60-115)
[2020-05-21] MEDS: Furosemide 500 MG in Container,Empty 0 ML IVCONT (12:11)
--- NOTE | 2020-05-21 12:20 | MHC.CM.PN ---
Per ROUNDS discussion, MD would like Patient to have VNA for CHF education, at time of dc. CM has met with Patient, who is in agreement with a referral to [facility]. CM will follow for dc planning.
[2020-05-21 15:28] VITALS: BP 90/64; PULSE 89; RESP 18; TEMP 36.8; O2SAT 93
[2020-05-21 16:14] LABS: Glucose, Whole Blood 174 mg/dL (60-115)
[2020-05-21 18:40] VITALS: BP 99/56; PULSE 89; RESP 18; TEMP 36.9; O2SAT 94
--- NOTE | 2020-05-21 18:54 | P.PNIM_ITS ---
Subjective Subjective Date of Service: 05/21/20 Interval History: seen and examined reports less SUMMERS and swelling improved denies cp ROS General - no fevers or chills Cardiovascular - no chest pain, +edema Respiratory - +SUMMERS improved Abdominal- no abdominal pain, nausea, vomiting, diarrhea Physical Exam Vital Signs: Vital Signs: Last Vital Signs Temp 98.4 F 05/21/20 18:40 Pulse 89 05/21/20 18:40 Resp 18 05/21/20 18:40 BP 99/56 L 05/21/20 18:40 Pulse Ox 94 05/21/20 18:40 Body Mass Index 49.3 General: AO X 3, no acute distress, cyanotic Resp: CTA bilateral CVS: S1,S2,RRR, 2+ edema but improved GI: soft, non tender, non distended Neuro: motor grossly intact Psych: appropriate affect Objective Data Current Medications Generic Name Dose Route Start Last Admin Trade Name Freq PRN Reason Stop Dose Admin Acetaminophen 650 mg 05/18/20 00:03 Acetaminophen 325 Mg Tablet PO Q6H PRN Pain, Mild (Pain Scale 1-3) Albuterol Sulfate 2 puff 05/18/20 00:03 Albuterol Sulfate 90 Mcg 8 Gm Inhaler INHALE Q4H PRN Shortness Of Breath Alprazolam 0.125 mg 05/18/20 14:51 05/20/20 14:15 Alprazolam 0.25 Mg Tablet PO 0.125 mg TID PRN Administration Anxiety Atorvastatin Calcium 10 mg 05/18/20 21:00 05/20/20 20:33 Atorvastatin Calcium 10 Mg Tablet PO 10 mg BEDTIME SARAHI Administration Docusate Sodium 100 mg 05/18/20 00:03 Docusate Sodium 100 Mg Capsule PO DAILY PRN Constipation Enoxaparin Sodium 40 mg 05/19/20 06:00 05/21/20 05:59 Enoxaparin Sodium 40 Mg/0.4 Ml Syringe SUBCUT 40 mg Q24H SARAHI Administration Furosemide 500 mg/ IV 50 mls @ 1 mls/hr 05/19/20 10:45 05/21/20 12:11 Miscellaneous Supplies IVCONT 10 mg/hr .Q24H SARAHI 1 mls/hr Administration 10 MG/HR Insulin Human Lispro 0 unit 05/18/20 07:30 05/21/20 17:30 Insulin Lispro 100 Unit/Ml 3 Ml Vial SUBCUT 2 unit QIDACHS SARAHI Administration Protocol Lisinopril 20 mg 05/18/20 09:00 05/21/20 08:01 Lisinopril 20 Mg Tablet PO 20 mg DAILY SARAHI Administration Protocol Metolazone 5 mg 05/21/20 09:30 05/21/20 10:13 Metolazone 5 Mg Tablet PO 5 mg DAILY SARAHI Administration Montelukast Sodium 10 mg 05/18/20 21:00 05/20/20 20:33 Montelukast Sodium 10 Mg Tablet PO 10 mg BEDTIME SARAHI Administration Omeprazole 40 mg 05/18/20 06:30 05/21/20 05:59 Omeprazole 40 Mg Capsule.Dr PO 40 mg DAILY@0630 SARAHI Administration Ondansetron HCl 4 mg 05/18/20 00:03 Ondansetron Hcl 4 Mg/2 Ml Vial IVPUSH Q8H PRN Nausea and Vomiting Pharmacy Consult 1 each 05/17/20 21:37 Consult Rx Perform Med Rec MISCELLANE ONCE PRN Consult order Sodium Chloride 3 ml 05/18/20 00:03 05/21/20 16:00 0.9 % Sodium Chloride Flush 3 Ml Syringe IVFLUSH Not Given QSHIFT [facility] Vitamin D 125 mcg 05/18/20 09:00 05/21/20 08:01 Cholecalciferol (Vitamin D3) 25 Mcg Tablet PO 125 mcg DAILY SARAHI Administration Labs CBC & Chem 7: 05/20/20 05:47 05/21/20 06:08 Assessment and Plan (1) CHF exacerbation: Status: Acute (2) Hypomagnesemia: Status: Acute (3) Sleep apnea: Status: Acute (4) Hypertension: Status: Acute (5) COPD (chronic obstructive pulmonary disease): Status: Acute (6) Diabetes type 2, controlled: Status: Acute Assessment and Plan: 59-year-old female presented to the hospital with lower extremity edema 1. acute on chronic diastolic chf with right sided CHF and pulmonary HTN lasix 10mg/hr, continue; Zaroxolyn 5 daily V/Q done, very low prob a PE Cardiology input appreciated 2. DM insulin 3. morbid obesity weight loss 4. COPD stable 5. sleep apnea reports noncompliance with CPAP and is not interested in getting when here Full Code DVT pptx, lovenox
[2020-05-21 20:31] LABS: Glucose, Whole Blood 257 mg/dL (60-115)
[2020-05-21] MEDS: Montelukast Sodium 10 MG TABLET PO (20:44)
[2020-05-21] MEDS: Atorvastatin Calcium 10 MG TABLET PO (20:44)
[2020-05-22] VITALS (9 sets, daily range): BP systolic 87–114; BP diastolic 53–65; PULSE 88–98; RESP 18–20; TEMP 36.3–37.1; O2SAT 91–95; BMI 48.1
[2020-05-22] MEDS: ALPRAZolam 0.25 MG TABLET 0.125 MG PO ×3 (00:06→21:09)
[2020-05-22] MEDS: Omeprazole 40 MG CAPSULE.DR PO (05:48)
[2020-05-22 07:43] LABS: Glucose, Whole Blood 199 mg/dL (60-115)
[2020-05-22] MEDS: Insulin Lispro 100 UNIT/ML 3 ML VIAL SUBCUT ×4 (08:11→21:13)
[2020-05-22] MEDS: metOLazone 5 MG TABLET PO (08:11)
[2020-05-22] MEDS: Cholecalciferol (Vitamin D3) 25 MCG TABLET 125 MCG PO (08:11)
[2020-05-22] MEDS: lisinopriL 20 MG TABLET PO (08:11)
[2020-05-22] MEDS: 0.9 % Sodium Chloride Flush 3 ML SYRINGE IVFLUSH ×2 (08:16→16:25)
--- NOTE | 2020-05-22 10:37 | P.PNCA_ITS ---
Subjective Subjective Principal diagnosis: right heart failure, pulmonary hypertension Interval history: Feeling better. She has diuresed a lot after adding metolazone. Shortness of breath is improved. Leg swelling is also much improved. Review of Systems Review of Systems Cardiac-positive for shortness of breath but improved; positive for leg swelling and again improved; negative for angina, palpitations or syncopal episodes. Yes all other systems are reviewed and are negative Physical Exam Vital Signs: Last Vital Signs Temp 97.9 F 05/21/20 07:57 Pulse 89 05/21/20 07:57 Resp 20 05/21/20 07:57 BP 118/73 05/21/20 07:57 Pulse Ox 93 05/21/20 07:57 Body Mass Index 49.3 Comfortable, no distress No pallor, icterus or cyanosis HEENT -unremarkable JVD- normal Cardiac- normal heart sounds, no murmurs, gallops or rubs, normal PMI Respiratory-normal breath sounds bilaterally, no crackles, no wheeze Abdomen- soft, nontender Neuro- alert and oriented Lower extremities- 2+ edema, warm well perfused Const Other: Last Vital Signs Temp 97.9 F 05/21/20 07:57 Pulse 89 05/21/20 07:57 Resp 20 05/21/20 07:57 BP 118/73 05/21/20 07:57 Pulse Ox 93 05/21/20 07:57 Body Mass Index 49.3 Cardio Other: Last Vital Signs Temp 97.9 F 05/21/20 07:57 Pulse 89 05/21/20 07:57 Resp 20 05/21/20 07:57 BP 118/73 05/21/20 07:57 Pulse Ox 93 05/21/20 07:57 Body Mass Index 49.3 Results Labs and Meds Result diagrams: 05/20/20 05:47 05/21/20 06:08 Lab results: Laboratory Results - last 24 hr 05/21/20 05/21/20 05/21/20 11: 16:05 20:14 POC Glucose 212 H 174 H 257 H 05/22/20 07:34 POC Glucose 199 H Progress Note: A&P Assessment and plan (1) Acute on chronic right heart failure: Status: Acute (2) Pulmonary hypertension: Status: Acute Assessment and Plan: Probably right heart failure related to obesity/ sleep apnea. Volume status improving. Continue with IV diuretics but switch to bid. Continue Metolazone. Check and replace electrolytes. VQ scan does not show any evidence of chronic pulmonary embolism. Upon discharge, she will need to follow-up with sleep medicine /use CPAP mask. Fall Risk Details Current Medications: Current Medications Generic Name Dose Route Start Last Admin Trade Name Freq PRN Reason Stop Dose Admin Acetaminophen 650 mg 05/18/20 00:03 Acetaminophen 325 Mg Tablet PO Q6H PRN Pain, Mild (Pain Scale 1-3) Albuterol Sulfate 2 puff 05/18/20 00:03 Albuterol Sulfate 90 Mcg 8 Gm Inhaler INHALE Q4H PRN Shortness Of Breath Alprazolam 0.125 mg 05/18/20 14:51 05/22/20 00:06 Alprazolam 0.25 Mg Tablet PO 0.125 mg TID PRN Administration Anxiety Atorvastatin Calcium 10 mg 05/18/20 21:00 05/21/20 20:44 Atorvastatin Calcium 10 Mg Tablet PO 10 mg BEDTIME SARAHI Administration Docusate Sodium 100 mg 05/18/20 00:03 Docusate Sodium 100 Mg Capsule PO DAILY PRN Constipation Enoxaparin Sodium 40 mg 05/19/20 06:00 05/22/20 05:49 Enoxaparin Sodium 40 Mg/0.4 Ml Syringe SUBCUT Not Given Q24H SARAHI Furosemide 80 mg 05/22/20 09:30 Furosemide 100 Mg/10 Ml Vial IVPUSH BID@0900,1800 [facility] Protocol Furosemide 500 mg/ IV 50 mls @ 1 mls/hr 05/19/20 10:45 05/21/20 12:11 Miscellaneous Supplies IVCONT 10 mg/hr .Q24H SARAHI 1 mls/hr Administration 10 MG/HR Insulin Human Lispro 0 unit 05/18/20 07:30 05/22/20 08:11 Insulin Lispro 100 Unit/Ml 3 Ml Vial SUBCUT 2 unit QIDACHS [facility] Administration Protocol Lisinopril 20 mg 05/18/20 09:00 05/22/20 08:11 Lisinopril 20 Mg Tablet PO 20 mg DAILY SARAHI Administration Protocol Metolazone 5 mg 05/21/20 09:30 05/22/20 08:11 Metolazone 5 Mg Tablet PO 5 mg DAILY SARAHI Administration Montelukast Sodium 10 mg 05/18/20 21:00 05/21/20 20:44 Montelukast Sodium 10 Mg Tablet PO 10 mg BEDTIME SARAHI Administration Omeprazole 40 mg 05/18/20 06:30 05/22/20 05:48 Omeprazole 40 Mg Capsule.Dr PO 40 mg DAILY@0630 SARAHI Administration Ondansetron HCl 4 mg 05/18/20 00:03 Ondansetron Hcl 4 Mg/2 Ml Vial IVPUSH Q8H PRN Nausea and Vomiting Pharmacy Consult 1 each 05/17/20 21:37 Consult Rx Perform Med Rec MISCELLANE ONCE PRN Consult order Sodium Chloride 3 ml 05/18/20 00:03 05/22/20 08:16 0.9 % Sodium Chloride Flush 3 Ml Syringe IVFLUSH 3 ml QSHIFT SARAHI Administration Vitamin D 125 mcg 05/18/20 09:00 05/22/20 08:11 Cholecalciferol (Vitamin D3) 25 Mcg Tablet PO 125 mcg DAILY SARAIH Administration Time Spent With Patient Time: Total time spent is greater than 50% in coordination of care (as document ed) at patient's floor/unit and/or counseling patient: Time with patient: 15 - 24 minutes Procedures Abscess I/D Date of Service: 05/22/20
--- NOTE | 2020-05-22 11:19 | MHC.CM.PN ---
DC plan continues to be home with a new referral to na (On IV Lasix r/t CHF Exacerbation, for which Patient will need continued CHF education from the [facility]).CM will continue to follow for dc planning and possible need to adjust the dc plan.
[2020-05-22 11:25] LABS: Glucose, Whole Blood 262 mg/dL (60-115)
[2020-05-22 11:32] LABS: Anion Gap 16 (12-20); Blood Urea Nitrogen 28 mg/dL (9-16); Calcium 9.1 mg/dL (8.4-10.2); Carbon Dioxide 38 mmol/L (22-29); Chloride 87 mmol/L (96-108); Estimated Glomerular Filt Rate 47; Glucose Random 351 mg/dL (60-115); Sodium 137 mmol/L (135-145)
--- NOTE | 2020-05-22 12:18 | P.PNIM_ITS ---
Subjective Subjective Date of Service: 05/22/20 Interval History: seen and examined this AM feeling better compared to yesterday SUMMERS continues to improve General - no fevers or chills Cardiovascular - no chest pain, swelling improving Respiratory - SUMMERS improving Abdominal- no abdominal pain, nausea, vomiting, diarrhea Physical Exam Vital Signs: Vital Signs: Last Vital Signs Temp 98.4 F 05/21/20 18:40 Pulse 89 05/21/20 18:40 Resp 18 05/21/20 18:40 BP 99/56 L 05/21/20 18:40 Pulse Ox 94 05/21/20 18:40 Body Mass Index 49.3 General - no acute distress, appears comfortable Cardiovascular - regular rate and rhythm, S1-S2 Lungs - normal respiratory effort, clear to auscultation bilaterally, no wheezing Abdomen - soft, nontender, no rebound or guarding Extremities - edema improving Neuro - awake and alert, no focal deficits Objective Data Current Medications Generic Name Dose Route Start Last Admin Trade Name Freq PRN Reason Stop Dose Admin Acetaminophen 650 mg 05/18/20 00:03 Acetaminophen 325 Mg Tablet PO Q6H PRN Pain, Mild (Pain Scale 1-3) Albuterol Sulfate 2 puff 05/18/20 00:03 Albuterol Sulfate 90 Mcg 8 Gm Inhaler INHALE Q4H PRN Shortness Of Breath Alprazolam 0.125 mg 05/18/20 14:51 05/22/20 00:06 Alprazolam 0.25 Mg Tablet PO 0.125 mg TID PRN Administration Anxiety Atorvastatin Calcium 10 mg 05/18/20 21:00 05/21/20 20:44 Atorvastatin Calcium 10 Mg Tablet PO 10 mg BEDTIME SARAHI Administration Docusate Sodium 100 mg 05/18/20 00:03 Docusate Sodium 100 Mg Capsule PO DAILY PRN Constipation Enoxaparin Sodium 40 mg 05/19/20 06:00 05/22/20 05:49 Enoxaparin Sodium 40 Mg/0.4 Ml Syringe SUBCUT Not Given Q24H [facility] Furosemide 80 mg 05/22/20 09:30 05/22/20 11:58 Furosemide 100 Mg/10 Ml Vial IVPUSH Not Given BID@0900,1800 [facility] Protocol Insulin Human Lispro 0 unit 05/18/20 07:30 05/22/20 11:56 Insulin Lispro 100 Unit/Ml 3 Ml Vial SUBCUT 6 unit QIDACHS SARAHI Administration Protocol Lisinopril 20 mg 05/18/20 09:00 05/22/20 08:11 Lisinopril 20 Mg Tablet PO 20 mg DAILY SARAHI Administration Protocol Metolazone 5 mg 05/21/20 09:30 05/22/20 08:11 Metolazone 5 Mg Tablet PO 5 mg DAILY SARAHI Administration Montelukast Sodium 10 mg 05/18/20 21:00 05/21/20 20:44 Montelukast Sodium 10 Mg Tablet PO 10 mg BEDTIME SARAHI Administration Omeprazole 40 mg 05/18/20 06:30 05/22/20 05:48 Omeprazole 40 Mg Capsule.Dr PO 40 mg DAILY@0630 SARAHI Administration Ondansetron HCl 4 mg 05/18/20 00:03 Ondansetron Hcl 4 Mg/2 Ml Vial IVPUSH Q8H PRN Nausea and Vomiting Pharmacy Consult 1 each 05/17/20 21:37 Consult Rx Perform Med Rec MISCELLANE ONCE PRN Consult order Sodium Chloride 3 ml 05/18/20 00:03 05/22/20 08:16 0.9 % Sodium Chloride Flush 3 Ml Syringe IVFLUSH 3 ml QSHIFT SARAHI Administration Vitamin D 125 mcg 05/18/20 09:00 05/22/20 08:11 Cholecalciferol (Vitamin D3) 25 Mcg Tablet PO 125 mcg DAILY SARAHI Administration Labs CBC & Chem 7: 05/20/20 05:47 05/22/20 09:15 Assessment and Plan (1) CHF exacerbation: Status: Acute (2) Hypomagnesemia: Status: Acute (3) Sleep apnea: Status: Acute (4) Hypertension: Status: Acute (5) COPD (chronic obstructive pulmonary disease): Status: Acute (6) Diabetes type 2, controlled: Status: Acute Assessment and Plan: 59-year-old female presented to the hospital with lower extremity edema 1. acute on chronic diastolic chf with right sided CHF and pulmonary HTN significant diuresis with Zaroxolyn stop lasix drip -- change to IV Lasix BID V/Q done, very low prob a PE Cardiology input appreciated home o2 eval with exertion 2. DM insulin 3. morbid obesity weight loss 4. COPD stable 5. sleep apnea reports noncompliance with CPAP and is not interested in getting when here Full Code DVT pptx, lovenox dispo: anticipate d/c next 24-48 hours, home with services
[2020-05-22] MEDS: Acetaminophen 325 MG TABLET 650 MG PO (13:19)
[2020-05-22 15:55] LABS: Potassium 4.3 mmol/l (3.3-5.1)
[2020-05-22] MEDS: acetaZOLAMIDE 250 MG TABLET 500 MG PO (16:24)
[2020-05-22 16:37] LABS: Glucose, Whole Blood 183 mg/dL (60-115)
[2020-05-22 20:46] LABS: Glucose, Whole Blood 187 mg/dL (60-115)
[2020-05-22] MEDS: Atorvastatin Calcium 10 MG TABLET PO (21:09)
[2020-05-22] MEDS: Montelukast Sodium 10 MG TABLET PO (21:09)
[2020-05-23] VITALS (8 sets, daily range): BP systolic 85–111; BP diastolic 50–69; PULSE 84–98; RESP 18–20; TEMP 36.3–36.9; O2SAT 90–93; BMI 47.9
[2020-05-23] MEDS: 0.9 % Sodium Chloride Flush 3 ML SYRINGE IVFLUSH ×4 (00:17→22:16)
[2020-05-23] MEDS: Enoxaparin Sodium 40 MG/0.4 ML SYRINGE SUBCUT (06:12)
[2020-05-23] MEDS: Omeprazole 40 MG CAPSULE.DR PO (06:13)
[2020-05-23 07:24] LABS: Glucose, Whole Blood 201 mg/dL (60-115)
[2020-05-23 07:41] LABS: Anion Gap 15 (12-20); Blood Urea Nitrogen 33 mg/dL (9-16); Calcium 8.7 mg/dL (8.4-10.2); Carbon Dioxide 34 mmol/L (22-29); Chloride 92 mmol/L (96-108); Creatinine Clr Calc Pharmacy 76.8; Estimated Glomerular Filt Rate 58; Glucose Random 203 mg/dL (60-115); Potassium 3.5 mmol/l (3.3-5.1); Sodium 137 mmol/L (135-145)
[2020-05-23] MEDS: lisinopriL 20 MG TABLET PO (07:54)
[2020-05-23] MEDS: acetaZOLAMIDE 250 MG TABLET 500 MG PO (07:54)
[2020-05-23] MEDS: Cholecalciferol (Vitamin D3) 25 MCG TABLET 125 MCG PO (07:54)
[2020-05-23] MEDS: Insulin Lispro 100 UNIT/ML 3 ML VIAL SUBCUT ×4 (07:54→22:14)
[2020-05-23] MEDS: Potassium Chloride ER 20 MEQ TAB.ER.PRT 60 MEQ PO (08:26)
[2020-05-23] MEDS: Furosemide 40 MG TABLET 80 MG PO (10:23)
[2020-05-23 11:30] LABS: Glucose, Whole Blood 276 mg/dL (60-115)
--- NOTE | 2020-05-23 11:30 | PC.NURSE ---
Patient blood pressure on dynamap reading 70s systolically, manual blood pressure taken on left forearm 85/60 HR 88, asymptomatic otherwise. MD made aware at time, will hold discharge for today. Lisinopril dose lowered for tomorrow morning and lasix held pm tonight.
--- NOTE | 2020-05-23 12:01 | P.PNCA_ITS ---
Subjective Subjective Principal diagnosis: right heart failure, pulmonary hypertension Interval history: She is feeling better. Shortness of breath is improved. Leg swelling is also better. Review of Systems Review of Systems Cardiac-positive for shortness of breath but improved; positive for leg swelling and again improved; negative for angina, palpitations or syncopal episodes. Yes all other systems are reviewed and are negative Reports system reviewed and no additional complaints, except as documented Physical Exam Vital Signs: Last Vital Signs Temp 97.9 F 05/21/20 07:57 Pulse 89 05/21/20 07:57 Resp 20 05/21/20 07:57 BP 118/73 05/21/20 07:57 Pulse Ox 93 05/21/20 07:57 Body Mass Index 49.3 Comfortable, no distress No pallor, icterus or cyanosis HEENT -unremarkable JVD- normal Cardiac- normal heart sounds, no murmurs, gallops or rubs, normal PMI Respiratory-normal breath sounds bilaterally, no crackles, no wheeze Abdomen- soft, nontender Neuro- alert and oriented Lower extremities- 2+ edema, warm well perfused Const Other: Last Vital Signs Temp 97.9 F 05/21/20 07:57 Pulse 89 05/21/20 07:57 Resp 20 05/21/20 07:57 BP 118/73 05/21/20 07:57 Pulse Ox 93 05/21/20 07:57 Body Mass Index 49.3 Cardio Other: Last Vital Signs Temp 97.9 F 05/21/20 07:57 Pulse 89 05/21/20 07:57 Resp 20 05/21/20 07:57 BP 118/73 05/21/20 07:57 Pulse Ox 93 05/21/20 07:57 Body Mass Index 49.3 Results Labs and Meds Result diagrams: 05/20/20 05:47 05/23/20 05:45 Lab results: Laboratory Results - last 24 hr 05/22/20 05/22/20 05/22/20 14:59 16:29 20:34 Sodium Potassium 4.3 Chloride Carbon Dioxide Anion Gap BUN Creatinine Estim Creat Clear Calc Estimated GFR POC Glucose 183 H 187 H Random Glucose Calcium 05/23/20 05/23/20 05/23/20 05:45 07:11 11:20 Sodium 137 Potassium 3.5 Chloride 92 L Carbon Dioxide 34 H Anion Gap 15 BUN 33 H Creatinine 0.99 Estim Creat Clear Calc 76.8 Estimated GFR 58 POC Glucose 201 H 276 H Random Glucose 203 H D Calcium 8.7 Progress Note: A&P Assessment and plan (1) Acute on chronic right heart failure: Status: Acute (2) Pulmonary hypertension: Status: Acute Assessment and Plan: Probably right heart failure related to obesity/ sleep apnea. Volume status improving. Oral diuretics. Check and replace electrolytes. VQ scan does not show any evidence of chronic pulmonary embolism. Upon discharge, she will need to follow-up with sleep medicine /use CPAP mask. Will arrange office FU. Fall Risk Details Current Medications: Current Medications Generic Name Dose Route Start Last Admin Trade Name Freq PRN Reason Stop Dose Admin Acetaminophen 650 mg 05/18/20 00:03 05/22/20 13:19 Acetaminophen 325 Mg Tablet PO 650 mg Q6H PRN Administration Pain, Mild (Pain Scale 1-3) Albuterol Sulfate 2 puff 05/18/20 00:03 Albuterol Sulfate 90 Mcg 8 Gm Inhaler INHALE Q4H PRN Shortness Of Breath Alprazolam 0.125 mg 05/18/20 14:51 05/22/20 21:09 Alprazolam 0.25 Mg Tablet PO 0.125 mg TID PRN Administration Anxiety Atorvastatin Calcium 10 mg 05/18/20 21:00 05/22/20 21:09 Atorvastatin Calcium 10 Mg Tablet PO 10 mg BEDTIME SARAHI Administration Docusate Sodium 100 mg 05/18/20 00:03 Docusate Sodium 100 Mg Capsule PO DAILY PRN Constipation Enoxaparin Sodium 40 mg 05/19/20 06:00 05/23/20 06:12 Enoxaparin Sodium 40 Mg/0.4 Ml Syringe SUBCUT 40 mg Q24H SARAHI Administration Furosemide 80 mg 05/23/20 09:00 05/23/20 10:23 Furosemide 40 Mg Tablet PO 80 mg BID@0900,1800 [facility] Administration Protocol Insulin Human Lispro 0 unit 05/18/20 07:30 05/23/20 07:54 Insulin Lispro 100 Unit/Ml 3 Ml Vial SUBCUT 4 unit QIDACHS SARAHI Administration Protocol Lisinopril 20 mg 05/18/20 09:00 05/23/20 07:54 Lisinopril 20 Mg Tablet PO 20 mg DAILY SARAHI Administration Protocol Montelukast Sodium 10 mg 05/18/20 21:00 05/22/20 21:09 Montelukast Sodium 10 Mg Tablet PO 10 mg BEDTIME SARAHI Administration Omeprazole 40 mg 05/18/20 06:30 05/23/20 06:13 Omeprazole 40 Mg Capsule.Dr PO 40 mg DAILY@0630 SARAHI Administration Ondansetron HCl 4 mg 05/18/20 00:03 Ondansetron Hcl 4 Mg/2 Ml Vial IVPUSH Q8H PRN Nausea and Vomiting Pharmacy Consult 1 each 05/17/20 21:37 Consult Rx Perform Med Rec MISCELLANE ONCE PRN Consult order Sodium Chloride 3 ml 05/18/20 00:03 05/23/20 07:54 0.9 % Sodium Chloride Flush 3 Ml Syringe IVFLUSH 3 ml QSHIFT SARAHI Administration Vitamin D 125 mcg 05/18/20 09:00 05/23/20 07:54 Cholecalciferol (Vitamin D3) 25 Mcg Tablet PO 125 mcg DAILY SARAHI Administration Time Spent With Patient Time: Total time spent is greater than 50% in coordination of care (as documented) at patient's floor/unit and/or counseling patient: Time with patient: 15 - 24 minutes Procedures Abscess I/D Date of Service: 05/23/20
[2020-05-23] MEDS: Acetaminophen 325 MG TABLET 650 MG PO (14:26)
--- NOTE | 2020-05-23 15:03 | P.PNIM_ITS ---
Subjective Subjective Date of Service: 05/23/20 Interval History: seen and examined feeling better, minimal to none SUMMERS swelling better bp soft, but no symptoms ROS General - no fevers or chills Cardiovascular - no chest pain Respiratory - SUMMERS improved Abdominal- no abdominal pain, nausea, vomiting, diarrhea Physical Exam Vital Signs: Vital Signs: Last Vital Signs Temp 98.4 F 05/21/20 18:40 Pulse 89 05/21/20 18:40 Resp 18 05/21/20 18:40 BP 99/56 L 05/21/20 18:40 Pulse Ox 94 05/21/20 18:40 Body Mass Index 49.3 General - no acute distress, appears comfortable Cardiovascular - regular rate and rhythm, S1-S2 Lungs - normal respiratory effort, clear to auscultation bilaterally, no wheezing Abdomen - soft, nontender, no rebound or guarding Extremities - edema continues to improve Neuro - awake and alert, no focal deficits Objective Data Current Medications Generic Name Dose Route Start Last Admin Trade Name Freq PRN Reason Stop Dose Admin Acetaminophen 650 mg 05/18/20 00:03 05/23/20 14:26 Acetaminophen 325 Mg Tablet PO 650 mg Q6H PRN Administration Pain, Mild (Pain Scale 1-3) Albuterol Sulfate 2 puff 05/18/20 00:03 Albuterol Sulfate 90 Mcg 8 Gm Inhaler INHALE Q4H PRN Shortness Of Breath Atorvastatin Calcium 10 mg 05/18/20 21:00 05/22/20 21:09 Atorvastatin Calcium 10 Mg Tablet PO 10 mg BEDTIME SARAHI Administration Docusate Sodium 100 mg 05/18/20 00:03 Docusate Sodium 100 Mg Capsule PO DAILY PRN Constipation Enoxaparin Sodium 40 mg 05/19/20 06:00 05/23/20 06:12 Enoxaparin Sodium 40 Mg/0.4 Ml Syringe SUBCUT 40 mg Q24H SARAHI Administration Furosemide 80 mg 05/23/20 09:00 05/23/20 10:23 Furosemide 40 Mg Tablet PO 80 mg BID@0900,1800 [facility] Administration Protocol Insulin Human Lispro 0 unit 05/18/20 07:30 05/23/20 12:07 Insulin Lispro 100 Unit/Ml 3 Ml Vial SUBCUT 6 unit QIDACHS [facility] Administration Protocol Lisinopril 10 mg 05/24/20 09:00 Lisinopril 10 Mg Tablet PO DAILY [facility] Protocol Montelukast Sodium 10 mg 05/18/20 21:00 05/22/20 21:09 Montelukast Sodium 10 Mg Tablet PO 10 mg BEDTIME SARAHI Administration Omeprazole 40 mg 05/18/20 06:30 05/23/20 06:13 Omeprazole 40 Mg Capsule. PO 40 mg DAILY@0630 SARAHI Administration Ondansetron HCl 4 mg 05/18/20 00:03 Ondansetron Hcl 4 Mg/2 Ml Vial IVPUSH Q8H PRN Nausea and Vomiting Pharmacy Consult 1 each 05/17/20 21:37 Consult Rx Perform Med Rec MISCELLANE ONCE PRN Consult order Sodium Chloride 3 ml 05/18/20 00:03 05/23/20 07:54 0.9 % Sodium Chloride Flush 3 Ml Syringe IVFLUSH 3 ml QSHIFT SARAHI Administration Vitamin D 125 mcg 05/18/20 09:00 05/23/20 07:54 Cholecalciferol (Vitamin D3) 25 Mcg Tablet PO 125 mcg DAILY SARAHI Administration Labs CBC & Chem 7: 05/20/20 05:47 05/23/20 05:45 Assessment and Plan (1) CHF exacerbation: Status: Acute (2) Hypomagnesemia: Status: Acute (3) Sleep apnea: Status: Acute (4) Hypertension: Status: Acute (5) COPD (chronic obstructive pulmonary disease): Status: Acute (6) Diabetes type 2, controlled: Status: Acute Assessment and Plan: 59-year-old female presented to the hospital with lower extremity edema 1. acute on chronic diastolic chf with right sided CHF and pulmonary HTN due to [place] - noncompliant s/p iv diuresis and now switched to oral -- plan to d/c on lasix 80mg bid + metolazone 5mg MWF (per cardiology recs). 2. DM insulin 3. morbid obesity weight loss 4. COPD stable 5. sleep apnea reports noncompliance with CPAP and is not interested in getting when here 6. HTN bp soft, stop lisinopril Full Code DVT pptx, lovenox plan for d/c today -- but BP very low, although fortunately pt has no symptoms. hold evening dose of lasix and stop lisinopril and observe. if bp better, d/c tomorrow AM
[2020-05-23 16:16] LABS: Glucose, Whole Blood 154 mg/dL (60-115)
[2020-05-23 20:44] LABS: Glucose, Whole Blood 226 mg/dL (60-115)
[2020-05-23] MEDS: Montelukast Sodium 10 MG TABLET PO (22:15)
[2020-05-23] MEDS: ALPRAZolam 0.25 MG TABLET 0.125 MG PO (22:15)
[2020-05-23] MEDS: Atorvastatin Calcium 10 MG TABLET PO (22:15)
[2020-05-24 03:44] VITALS: BP 106/58; PULSE 80; RESP 18; TEMP 36.4; O2SAT 98
[2020-05-24] MEDS: Omeprazole 40 MG CAPSULE.DR PO (05:44)
[2020-05-24] MEDS: Enoxaparin Sodium 40 MG/0.4 ML SYRINGE SUBCUT (05:44)
[2020-05-24 06:00] VITALS: BMI 47.5
[2020-05-24 08:00] VITALS: BP 106/54; PULSE 91; RESP 20; TEMP 36.5; O2SAT 93
[2020-05-24 08:42] LABS: Glucose, Whole Blood 251 mg/dL (60-115)
[2020-05-24] MEDS: Cholecalciferol (Vitamin D3) 25 MCG TABLET 125 MCG PO (08:45)
[2020-05-24] MEDS: Insulin Lispro 100 UNIT/ML 3 ML VIAL SUBCUT ×2 (08:45→12:02)
[2020-05-24] MEDS: 0.9 % Sodium Chloride Flush 3 ML SYRINGE IVFLUSH (08:45)
[2020-05-24] MEDS: Furosemide 40 MG TABLET 80 MG PO (09:55)
[2020-05-24 11:29] LABS: Glucose, Whole Blood 248 mg/dL (60-115)
--- NOTE | 2020-05-24 12:12 | MHC.CM.PN ---
Pt discharging home today with NA for [facility]. pt will self arrange transport
--- NOTE | 2020-05-28 07:09 | PM.DS ---
DS: Providers Provider Date of admission: 05/17/20 22:24 Primary care physician: Traci Baxter MD Consults: 05/18/20 04:48 Consult to Cardiology Routine Consulting Provider: Tom Pedro Reason for consultation: CHF exacerbation Has provider been notified: No DS: Diagnosis Discharge Diagnosis (1) CHF exacerbation: Status: Deleted (2) Hypomagnesemia: Status: Resolved (3) Sleep apnea: Status: Acute (4) Hypertension: Status: Acute (5) COPD (chronic obstructive pulmonary disease): (6) Diabetes type 2, controlled: DS: Medications Discharge Medications Home Medications: Home Medications Medication Instructions Recorded Confirmed Trulicity 1.5 mg SUBCUT WE 05/17/20 05/17/20 albuterol sulfate [Ventolin HFA] 2 puff INHALATION Q4H PRN 05/17/20 05/17/20 atorvastatin 10 mg tablet 10 mg PO DAILY 05/17/20 05/17/20 blood sugar diagnostic #10 ea 05/17/20 cholecalciferol (vitamin D3) 125 125 mcg PO DAILY 05/17/20 05/17/20 mcg (5,000 unit) capsule lancets 28 gauge #100 ea 05/17/20 metformin 1,000 mg PO BID 05/17/20 05/17/20 montelukast 10 mg tablet 10 mg PO DAILY 05/17/20 05/17/20 omeprazole 40 mg capsule,delayed 40 mg PO DAILY 05/17/20 05/17/20 release vitamin E 400 unit capsule 1 cap PO DAILY 05/17/20 05/17/20 Previous Rx's Medication Instructions Recorded furosemide 80 mg PO BID@0900,1800 #60 tab 05/24/20 lisinopril 5 mg PO DAILY #30 tab 05/24/20 metolazone 2.5 mg PO .MWF #12 tab 05/24/20 potassium chloride 20 meq PO DAILY #30 tab 05/24/20 DS: Summary Hospital Course Hospital Course: HPI from the admission H&P: this is a 59-year-old female with past medical history of COPD, diabetes, hypertension, sleep apnea on CPAP, seasonal allergies, who presents to the hospital with complaints of lower extremity edema. Patient reports that her symptoms have been going on for about a month and half, she has been adjusting her furosemide by herself and taking between 60-80 mg which has been slightly helping but the swelling usually returns within few days. She reports dyspnea at baseline but increased this has increased recently. Dyspnea mostly with exertion but reports that that could be attributed to her allergies as well as housecleaning. She denies any orthopnea or PND, denies any chest pain or palpitations. She has no fever or chills, abdominal pain, no cough, no sputum production, diarrhea constipation, no urinary symptoms. patient does take diuretic at baseline but is not sure if she has congestive heart failure On arrival to the ED hemodynamically stable with no significant abnormal vitals. Labs are significant for BNP of 562, magnesium of 1.[address] shows stable 7 mm right upper lobe lung nodule, cardiomegaly, with small pericardial effusion Patient was started on IV lasix drip and cardiology consulted. She was slow to and subsequently metolazone was added. Over the course of hospitalization the patient had significant improvement in her symptoms. She was evaluated for home o2 which she did not qualify for. Patient's hospital course was further complicated by borderline blood pressures without any symptoms. Her lisinopril was decreased from 20 mg to 5 mg and her diuretics were changed to 80 mg of Lasix twice a day along with metolazone Wednesday. she is to have repeat lab work early next week and follow-up with the Cardiology Clinic. She has been also urged to follow-up with pulmonary for formal sleep study. Time Spent with Patient Time attestation: Total time spent providing and/or coordinating discharge services: Physical Exam Vital Signs: Vital Signs: Last Vital Signs Temp 97.7 F 05/24/20 08:00 Pulse 91 05/24/20 08:00 Resp 20 05/24/20 08:00 BP 106/54 L 05/24/20 08:00 Pulse Ox 93 05/24/20 08:00 Body Mass Index 47.5 General - no acute distress, appears comfortable Cardiovascular - regular rate and rhythm, S1-S2 Lungs - normal respiratory effort, clear to auscultation bilaterally, no wheezing Abdomen - soft, nontender, no rebound or guarding Extremities - +edema, significantly improved Neuro - awake and alert, no focal deficits DS: Data Data Completed and Pending Labs on day of discharge: Laboratory Last Values WBC 7.8 X10*3/uL (4.8-10.8) 05/20/20 05:47 RBC 4.61 X10*6/uL (4.20-5.50) 05/20/20 05:47 Hgb 13.9 g/dl (12.0-16.0) 05/20/20 05:47 Hct 43.7 % (37-47) 05/20/20 05:47 MCV 94.8 fL (80-98) 05/20/20 05:47 MCH 30.2 pg (27.0-33.0) 05/20/20 05:47 MCHC 31.8 g/dl (31.0-35.0) 05/20/20 05:47 RDW 15.3 % (11.0-16.0) 05/20/20 05:47 Plt Count 221 X10*3/uL (160-400) 05/20/20 05:47 MPV 11.1 fL (9.4-12.3) 05/20/20 05:47 Immature Gran % (Auto) 0.4 % (0.0-0.4) 05/20/20 05:47 Neut % (Auto) 62.5 % (45-73) 05/20/20 05:47 Lymph % (Auto) 27.6 % (20-40) 05/20/20 05:47 Osborne % (Auto) 8.1 % (2-11) 05/20/20 05:47 Eos % (Auto) 1.0 % (0-4) 05/20/20 05:47 Baso % (Auto) 0.4 % (0-2) 05/20/20 05:47 Lymph # (Auto) 2.1 X10*3/uL (1.2-4.9) 05/20/20 05:47 Osborne # (Auto) 0.6 X10*3/uL (0.1-1.2) 05/20/20 05:47 Eos # (Auto) 0.1 X10*3/uL (0.0-0.4) 05/20/20 05:47 Baso # (Auto) 0.0 X10*3/uL (0.0-0.2) 05/20/20 05:47 Abs Immat Gran (auto) 0.03 X10*3/uL (0.00-0.03) 05/20/20 05:47 Absolute Neuts (auto) 4.9 X10*3/uL (2.0-8.3) 05/20/20 05:47 Absolute Nucleated RBC 0.000 X10*3/uL (0.0-0.012) 05/20/20 05:47 Nucleated RBC % (auto) 0.0 /100WBC (0.0-0.2) 05/20/20 05:47 PT 12.7 SEC (10.8-13.0) 05/21/20 06:08 INR 1.1 (0.9-1.1) 05/21/20 06:08 Sodium Cancelled 05/24/20 05:42 Potassium Cancelled 05/24/20 05:42 Chloride Cancelled 05/24/20 05:42 Carbon Dioxide Cancelled 05/24/20 05:42 Anion Gap Cancelled 05/24/20 05:42 BUN Cancelled 05/24/20 05:42 Creatinine Cancelled 05/24/20 05:42 Estim Creat Clear Calc Cancelled 05/24/20 05:42 Estimated GFR Cancelled 05/24/20 05:42 POC Glucose 248 mg/dL (60-115) H 05/24/20 11:26 Random Glucose Cancelled 05/24/20 05:42 Fasting Glucose 205 mg/dL (60-99) H 05/21/20 06:08 Calcium Cancelled 05/24/20 05:42 Magnesium 1.5 mg/dL (1.6-2.6) L 05/20/20 05:47 Troponin I High Sens 9.9 ng/L (<3.5-17.0) 05/18/20 05:07 B-Natriuretic Peptide 562 pg/mL (<100) H 05/17/20 18:00 Urine Color YELLOW 05/17/20 18:53 Urine Appearance CLEAR 05/17/20 18:53 Urine pH 6.5 (5.0-8.0) 05/17/20 18:53 Ur Specific Logan 1.020 (1.005-1.025) 05/17/20 18:53 Urine Protein TRACE MG/DL (NEG-TRACE) 05/17/20 18:53 Urine Glucose (UA) NEG MG/DL (NEG) 05/17/20 18:53 Urine Ketones NEG MG/DL (NEG) 05/17/20 18:53 Urine Blood NEG (NEG) 05/17/20 18:53 Urine Nitrite NEG (NEG) 05/17/20 18:53 Ur Leukocyte Esterase NEG (NEG) 05/17/20 18:53 Coronavirus (PCR) NEGATIVE (Negative) 05/20/20 13:00 COVID-19 (TIM) Cancelled 05/20/20 13:00 COVID-19 Clin Com Cancelled 05/20/20 13:00 Influenza Type A (PCR) NEGATIVE (Negative) 05/20/20 13:00 Influenza Type B (PCR) NEGATIVE (Negative) 05/20/20 13:00 RSV RNA Qual (PCR) NEGATIVE (Negative) 05/20/20 13:00 Discharge Plan Discharge Patient Disposition: Home Health Service Referrals: [facility] [Outside] Traci Baxter MD [Primary Care Provider] - Anders Momin MD [Physician] - (call office if for sleep study to get CPAP machine) Darryl Cruz MD [Physician] - (call office for appt if you dont hear from them) Discharge Medications: New furosemide 40 mg Tablet 80 mg PO BID@0900,1800 Qty: 60 RF: 0 metolazone 2.5 mg tablet 2.5 mg PO .MWF Qty: 12 RF: 0 potassium chloride 20 mEq tablet extended release 20 meq PO DAILY Qty: 30 RF: 0 lisinopril 5 mg tablet 5 mg PO DAILY Qty: 30 RF: 0 Continued albuterol sulfate [Ventolin HFA] 90 mcg/actuation Hfa Aerosol Inhaler 2 puff INHALATION Q4H PRN (Reason: Shortness Of Breath) RF: 0 metformin 500 mg Tablet Extended Release 24hr 1,000 mg PO BID RF: 0 Trulicity 1.5 mg/0.5 mL pen injector 1.5 mg subcut WE RF: 0 vitamin E 400 unit capsule 1 cap PO DAILY RF: 0 cholecalciferol (vitamin D3) 125 mcg (5,000 unit) capsule 125 mcg PO DAILY RF: 0 omeprazole 40 mg capsule,delayed release(DR/EC) 40 mg PO DAILY RF: 0 atorvastatin 10 mg tablet 10 mg PO DAILY RF: 0 montelukast 10 mg tablet 10 mg PO DAILY RF: 0 (DME) lancets 28 gauge misc See Rx Instructions ea topical BID Qty: 100 RF: 0 (DME) blood sugar diagnostic Strip See Rx Instructions strip Not Applicable BID Qty: 10 RF: 0 Discontinued furosemide 20 mg tablet 20 mg PO DAILY RF: 0 lisinopril 20 mg tablet 20 mg PO DAILY RF: 0 furosemide 40 mg tablet 40 mg PO DAILY RF: 0 Discharge Orders: Discharge Order (Routine); Ordered 05/24/20 Ordered By: Jordan Malcolm Diet: advance to usual diet, diabetic diet and low salt diet Activity on Discharge: As tolerated Discharge Date/Time: 05/24/20 13:07 Visit Report Forms: Patient Portal Discharge page Care Plan Goals: To stay healthy and out of the hospital. Health Concerns: Right Heart Failure Obstructive Sleep Apnea Plan of Treatment: Right Heart Failure - Take lasix 80 twice daily and take Metolazone 2.5mg MWF. Take Potassium daily. Check your blood work on Wednesday05/27/2020. Check your weight daily. Eat a low sugar and low sodium diet. Follow up with cardiololgy Obstructive Sleep Apnea - Call Pulmonary clinic to set up sleep study for CPAP/BIPAP.
== END 2020-05-24 13:07 | disposition home health service (06) | DRG 194 ==
LOC: HO.ED 16:54 → HO.IMC 22:51
PROVIDERS: Internal Medicine; Nurse Practitioner Family; Admitting Provider Internal Medicine; Emergency Provider Emergency Medicine; PCP Internal Medicine; Visit Provider Family Medicine
DX: I11.0 Hypertensive heart disease with heart failure (principal); I27.29 Other secondary pulmonary hypertension; E66.2 Morbid (severe) obesity with alveolar hypoventilation; E83.42 Hypomagnesemia; Z68.42 Body mass index [BMI] 45.0-49.9, adult; I50.23 Acute on chronic systolic (congestive) heart failure; J44.9 Chronic obstructive pulmonary disease, unspecified; I50.813 Acute on chronic right heart failure; E11.9 Type 2 diabetes mellitus without complications; Z20.828 Contact with and (suspected) exposure to other viral communicable diseases; Z23 Encounter for immunization; Z99.89 Dependence on other enabling machines and devices; Z79.4 Long term (current) use of insulin; Z79.899 Other long term (current) drug therapy
CPT/HCPCS: 0241U; 36415; 71046; 71250; 78580; 80048; 81003; 82947; 83735; 83880; 84132; 84484; 85025; 85610; 87635; 90686; 93005; 93306; 96365; 96366; 96375; 99285; 99291; A9540; J1650; J1940; J3475

== ENCOUNTER 2020-05-27 13:15 | Outpatient (REF) | payer OTHER, SELFPAY ==
[2020-05-27 14:26] LABS: Anion Gap 19 (12-20); Blood Urea Nitrogen 22 mg/dL (9-16); Carbon Dioxide 29 mmol/L (22-29); Chloride 94 mmol/L (96-108); Estimated Glomerular Filt Rate 43; Glucose Random 433 mg/dL (60-115); Sodium 138 mmol/L (135-145)
== END 2020-05-27 13:16 | disposition home or self-care (01) ==
LOC: HO.HVNA 13:15
PROVIDERS: Visit Provider Family Medicine
DX: I50.813 Acute on chronic right heart failure (principal)
CPT/HCPCS: 80048

== ENCOUNTER 2020-06-07 12:56 | Outpatient (REF) | payer OTHER, SELFPAY ==
[2020-06-07 14:31] LABS: B Type Natriuretic Peptide 479 pg/mL (<100)
[2020-06-07 14:42] LABS: Anion Gap 17 (12-20); Blood Urea Nitrogen 36 mg/dL (9-16); Calcium 9.3 mg/dL (8.4-10.2); Carbon Dioxide 35 mmol/L (22-29); Chloride 90 mmol/L (96-108); Estimated Glomerular Filt Rate 52; Glucose Random 134 mg/dL (60-115); Potassium 3.7 mmol/l (3.3-5.1); Sodium 138 mmol/L (135-145)
[2020-06-07 14:53] LABS: Magnesium 1.5 mg/dL (1.6-2.6)
== END 2020-06-07 12:57 | disposition home or self-care (01) ==
LOC: HO.HMGCLDS 12:56
PROVIDERS: PCP Internal Medicine; Visit Provider Internal Medicine
DX: I11.0 Hypertensive heart disease with heart failure (principal); I50.810 Right heart failure, unspecified; E11.65 Type 2 diabetes mellitus with hyperglycemia; I27.20 Pulmonary hypertension, unspecified; J44.9 Chronic obstructive pulmonary disease, unspecified
CPT/HCPCS: 80048; 83735; 83880

== ENCOUNTER → 2020-06-11 12:54 | Outpatient (BNVA) | payer OTHER, SELFPAY | PROVIDERS: PCP Internal Medicine; Referring Provider Internal Medicine; Visit Provider Internal Medicine | DX: I50.812 Chronic right heart failure (principal); I27.20 Pulmonary hypertension, unspecified; R00.0 Tachycardia, unspecified; I45.19 Other right bundle-branch block; G47.33 Obstructive sleep apnea (adult) (pediatric); Z87.891 Personal history of nicotine dependence | CPT/HCPCS: 93005; 99212 ==

== ENCOUNTER → 2020-06-14 09:55 | Outpatient (BNVA) | payer OTHER, SELFPAY | PROVIDERS: PCP Internal Medicine; Referring Provider Internal Medicine; Visit Provider Internal Medicine Endocrinology, Diabetes & Metabolism | DX: E11.65 Type 2 diabetes mellitus with hyperglycemia (principal); E11.21 Type 2 diabetes mellitus with diabetic nephropathy; E66.01 Morbid (severe) obesity due to excess calories; R94.7 Abnormal results of other endocrine function studies; E78.5 Hyperlipidemia, unspecified | CPT/HCPCS: 82947; 99212 ==

== ENCOUNTER → 2020-06-17 15:30 | Outpatient (BNVA) | payer OTHER, SELFPAY | PROVIDERS: PCP Internal Medicine; Visit Provider Internal Medicine | DX: J44.9 Chronic obstructive pulmonary disease, unspecified (principal); G47.33 Obstructive sleep apnea (adult) (pediatric); G47.34 Idiopathic sleep related nonobstructive alveolar hypoventilation; E66.01 Morbid (severe) obesity due to excess calories; Z68.42 Body mass index [BMI] 45.0-49.9, adult; Z99.89 Dependence on other enabling machines and devices; Z71.3 Dietary counseling and surveillance | CPT/HCPCS: 99212 ==

== ENCOUNTER 2020-06-19 11:55 | Outpatient (REF) | payer OTHER, SELFPAY ==
[2020-06-19 12:36] LABS: Creatinine, mg/dL 36.21
[2020-06-19 14:09] LABS: Creatinine, 24Hr Urine 0.4 G/Day (1.0-2.0); Total Volume 24 Hour Urine 1125 mL
[2020-06-25 13:43] LABS: Cortisol Free, 24 Hr Urine 3.4 mcg/24 h (4.0-50.0); Creatinine, 24 Hr Urine 0.45 g/24 h (0.50-2.15); Total Volume, 24 Hr Urine 1125 mL
== END 2020-06-19 11:56 | disposition home or self-care (01) ==
LOC: HO.LNP 11:55
PROVIDERS: Visit Provider Internal Medicine Endocrinology, Diabetes & Metabolism
DX: I50.9 Heart failure, unspecified (principal); E11.9 Type 2 diabetes mellitus without complications
CPT/HCPCS: 82530; 82570

== ENCOUNTER 2020-07-17 16:38 | Outpatient (REF) | payer OTHER, SELFPAY ==
[2020-07-17 17:28] LABS: Anion Gap 20 (12-20); Blood Urea Nitrogen 38 mg/dL (9-16); Calcium 8.6 mg/dL (8.4-10.2); Carbon Dioxide 38 mmol/L (22-29); Chloride 84 mmol/L (96-108); Estimated Glomerular Filt Rate 40; Glucose Random 350 mg/dL (60-115); Magnesium 1.4 mg/dL (1.6-2.6); Potassium 3.3 mmol/l (3.3-5.1); Sodium 139 mmol/L (135-145)
== END 2020-07-17 16:39 | disposition home or self-care (01) ==
LOC: HO.LNP 16:38
PROVIDERS: Visit Provider Internal Medicine
DX: E11.65 Type 2 diabetes mellitus with hyperglycemia (principal); J44.9 Chronic obstructive pulmonary disease, unspecified; G47.33 Obstructive sleep apnea (adult) (pediatric); I27.20 Pulmonary hypertension, unspecified; I50.812 Chronic right heart failure; Z99.89 Dependence on other enabling machines and devices
CPT/HCPCS: 80048; 83735

== ENCOUNTER 2020-07-26 12:14 | Outpatient (REF) | payer OTHER, SELFPAY ==
[2020-07-26 14:13] LABS: Estimated Average Glucose 220 mg/dL; Hemoglobin A1c % 9.3 %
[2020-07-26 14:43] LABS: B Type Natriuretic Peptide 900 pg/mL (<100)
[2020-07-26 14:48] LABS: Anion Gap 19 (12-20); Blood Urea Nitrogen 39 mg/dL (9-16); Calcium 8.9 mg/dL (8.4-10.2); Carbon Dioxide 33 mmol/L (22-29); Chloride 96 mmol/L (96-108); Estimated Glomerular Filt Rate 34; Glucose Random 134 mg/dL (60-115); Magnesium 2.1 mg/dL (1.6-2.6); Potassium 4.9 mmol/l (3.3-5.1); Sodium 143 mmol/L (135-145)
[2020-07-26 14:52] LABS: TSH reflex Free T4 2.86 mIU/mL (0.32-4.0)
[2020-07-26 15:08] LABS: Vitamin B12 292 pg/mL (200-900)
[2020-07-27 07:43] LABS: SARS COV2 IgG Negative (Negative)
== END 2020-07-26 12:15 | disposition home or self-care (01) ==
LOC: HO.HMGCLDS 12:14
PROVIDERS: PCP Internal Medicine; Visit Provider Internal Medicine
DX: I50.812 Chronic right heart failure (principal); E11.65 Type 2 diabetes mellitus with hyperglycemia; E11.21 Type 2 diabetes mellitus with diabetic nephropathy; G47.34 Idiopathic sleep related nonobstructive alveolar hypoventilation; J44.9 Chronic obstructive pulmonary disease, unspecified; G62.9 Polyneuropathy, unspecified
CPT/HCPCS: 36415; 80048; 82607; 82746; 83036; 83735; 83880; 84443; 86769

== ENCOUNTER 2020-08-12 13:48 | Inpatient (IN) | payer OTHER, SELFPAY ==
[2020-08-12] VITALS (8 sets, daily range): BP systolic 105–130; BP diastolic 55–80; PULSE 57–104; RESP 18–30; TEMP 36.7–37.1; O2SAT 88–99; BMI 47.5
--- NOTE | ~2020-08-12 | US_ITS ---
EXAMINATION: US ABDOMEN LIMITED CLINICAL INFORMATION: Right upper quadrant pain. COMPARISON: None. TECHNIQUE: Real-time imaging of the right upper quadrant abdominal viscera. FINDINGS: PANCREAS: Normal. LIVER: The liver is enlarged and size measuring 20.6 cm The liver contour is normal. The liver is heterogeneous in echotexture. No focal hepatic lesion. There is no intrahepatic biliary duct dilatation seen. A pulsatile hepatopedal flow seen in the middle portal vein on Doppler exam. GALLBLADDER: The gallbladder is contracted with no definite stones, cyst wall thickening. COMMON BILE DUCT: Normal in caliber measuring 0.44 cm in diameter. RIGHT KIDNEY: Normal. No hydronephrosis. No renal calculi or focal parenchymal lesions. The kidney measures 12.3 cm in maximum dimension. FREE FLUID: None. US/US abdomen limited IMPRESSION: Significantly echogenic heterogeneous texture of the liver but no focal lesions seen. Contracted gallbladder limiting evaluation. Visualized CBD, right kidney and pancreas are unremarkable.
--- NOTE | ~2020-08-12 | XR_ITS ---
EXAMINATION: PORTABLE CHEST 1 VIEW CLINICAL INFORMATION: sob . COMPARISON: 05/17/2020. TECHNIQUE: Portable frontal view of the chest was obtained. FINDINGS: The lungs are well expanded. Chronic appearing reticular markings with minimal basilar atelectasis are seen but no superimposed focal focal infiltrate, effusion, edema, or pneumothorax. Cardiac and mediastinal silhouettes remain prominent similar to the prior study. No acute bony abnormality seen. XR/XR chest 1V IMPRESSION: Stable enlarged cardiac silhouette. Minimal basilar markings more likely due to atelectasis. No overt edema or dense consolidation.
--- NOTE | ~2020-08-12 | CT_ITS ---
EXAMINATION: CT CHEST WITHOUT CONTRAST CLINICAL INFORMATION: sob, hypoxia . COMPARISON: Chest x-ray today and 05/17/2020 CT scan. TECHNIQUE: Multidetector volumetric imaging was performed from the thoracic inlet through the lung bases without contrast. Sagittal and coronal reformatted images were obtained on the technologist workstation. Soft tissue and lung algorithms evaluated. Thick slab MIP images were performed to increase nodule conspicuity. This CT examination was performed using dose optimization techniques as appropriate, variously including the following: *Automated exposure control *Adjustment of mA and/or kV according to patient size (this includes techniques or standardized protocols for targeted exams where dose is matched to indication/reason for exam; i.e. extremities or head) *Use of iterative reconstruction technique DLP: 432 mGy-cm. FINDINGS: LUNG: Stable 6 mm pulmonary nodule in the anterior aspect of the right upper lobe, not significantly changed from the oldest available 06/26/2019 CT scan. No new pulmonary nodules seen. No dense consolidation with linear regions of probable atelectasis or scarring bilaterally. MEDIASTINUM: Mild vascular calcification within the aorta. No hilar or mediastinal lymphadenopathy. PERICARDIUM/PLEURA: Small pericardial effusion. No pericardial thickening or nodularity identified. No pleural effusion. THYROID/VISUALIZED LOWER NECK: Unremarkable. CHEST WALL/AXILLA: Unremarkable. VISUALIZED UPPER ABDOMEN: Unremarkable. CT/CT chest wo con IMPRESSION: Stable right upper lobe pulmonary nodule not significantly changed from recent prior studies. Linear regions more likely due to scarring or atelectasis bilaterally.
--- NOTE | ~2020-08-12 | NM_ITS ---
EXAMINATION: BILIARY TRACT IMAGING STUDY WITH CCK CLINICAL INFORMATION: Right upper quadrant pain, negative ultrasound.. COMPARISON: The previous study dated 05/14/2017 is available for comparison. Abdominal ultrasound dated 08/13/2020 is available for comparison.. TECHNIQUE: Serial gamma scintillation camera images were obtained over the abdomen for a total observation period of 122 minutes following the intravenous administration of 5 mCi Tc-99m Mebrofenin. FINDINGS: There is good concentration of activity in the liver by 5 minutes post injection. Biliary activity is visualized by 10 minutes. The gallbladder is well visualized by 20 minutes. Small bowel is faintly visualized by 25 minutes. At 6 minutes post radiopharmaceutical injection, a 30-minute infusion of 2.4 micrograms Sincalide was then begun and an additional 40 minutes of images were obtained. There is good emptying of the gallbladder. By the end of the study there is good clearance of activity from the liver and visualization of diffuse small bowel activity. The calculated gallbladder ejection fraction is 98% (normal gallbladder ejection fraction is greater than 35%). NM/NM hepatobiliary w pharm IMPRESSION: Visualization of the gallbladder is evidence of a patent cystic duct and strong evidence against the diagnosis of acute cholecystitis. The common bile duct is patent. Gallbladder emptying and ejection fraction are normal. Liver function appears normal.
[2020-08-12 18:44] LABS: MANUAL DIFF FLAG NO
[2020-08-12 18:46] LABS: Basophils Percent Auto 0.4 % (0-2); Eosinophils Absolute Auto 0.1 X10*3/uL (0.0-0.4); Eosinophils Percent Auto 0.7 % (0-4); Hematocrit 42.7 % (37-47); Hemoglobin 13.8 g/dl (12.0-16.0); Imm Gran Abs Auto 0.04 X10*3/uL (0.00-0.03); Imm Gran Pct Auto 0.5 % (0.0-0.4); Lymphocytes Absolute Auto 1.8 X10*3/uL (1.2-4.9); Lymphocytes Percent Auto 21.1 % (20-40); Mean Corpuscular HGB Conc 32.3 g/dl (31.0-35.0); Mean Corpuscular Hemoglobin 29.9 pg (27.0-33.0); Mean Corpuscular Volume 92.6 fL (80-98); Mean Platelet Volume 10.6 fL (9.4-12.3); Monocytes Absolute Auto 0.7 X10*3/uL (0.1-1.2); Monocytes Percent Auto 7.9 % (2-11); Neutrophils Absolute Auto 5.9 X10*3/uL (2.0-8.3); Neutrophils Percent Auto 69.4 % (45-73); Platelet Count 226 X10*3/uL (160-400); Red Blood Count 4.61 X10*6/uL (4.20-5.50); Red Cell Distribution Width 15.1 % (11.0-16.0); White Blood Count 8.5 X10*3/uL (4.8-10.8)
[2020-08-12 18:47] LABS: Glucose Urine UA NEG (NEG); Leukocyte Esterase Urine NEG (NEG); Nitrite Urine NEG (NEG); Specific Gravity - Urine 1.015 (1.005-1.025); Urine Blood NEG (NEG); Urine Ketones NEG (NEG); Urine Protein NEG (NEG-TRACE)
[2020-08-12 18:49] LABS: Appearance Urine CLEAR; Color Urine YELLOW
--- NOTE | 2020-08-12 18:52 | ED.GENADULT ---
HPI - General Adult General Chief complaint: General Medical Stated complaint: sob Time Seen by Provider: 08/12/20 22:47 Source: patient Mode of arrival: ambulatory Limitations: no limitations History of Present Illness HPI narrative: 60-year-old female with past medical history of CHF on Lasix and metolazone, COPD, JACKSON noncompliant with CPAP, diabetes type 2, history pulmonary hypertension, right heart failure, and hypertension presents with shortness of breath, intermittent fevers and chills, right upper quadrant abdominal pain, dry cough and increased edema. She reports taking 80 mg of Lasix today with metolazone with poor effect. She does not describe chest pain or pressure, palpitations, abdominal distention, dysuria, hematuria, weakness, loss of balance, or changes in vision. Onset (ago): day(s) (3) Location: chest and abdomen Radiation: non-radiation Severity: moderate Severity scale (1-10): 7 Quality: aching Pain Consistency: constant Relieving factors: none Exacerbating factors: movement Associated symptoms: fever/chills, nausea/vomiting and shortness of breath Related Data Home Medications Medication Instructions Recorded Confirmed albuterol sulfate [Ventolin HFA] 2 puff INHALATION Q4H PRN 05/17/20 08/12/20 montelukast 10 mg tablet 10 mg PO BEDTIME 05/17/20 08/12/20 omeprazole 40 mg capsule,delayed 40 mg PO BEDTIME 05/17/20 08/12/20 release tiotropium bromide 2.5 2 puff INHALATION DAILY 06/07/20 08/12/20 mcg/actuation mist for inhalation atorvastatin 10 mg PO BEDTIME 08/12/20 08/12/20 dulaglutide [Trulicity] 1.5 mg SUBCUT QWEEK 08/12/20 08/12/20 potassium chloride 20 meq PO BEDTIME 08/12/20 08/12/20 Previous Rx's Medication Instructions Recorded buspirone 5 mg tablet 5 mg PO BID #60 tab 05/29/20 insulin glargine U-300 conc 300 15 unit SUBCUT BEDTIME 90 Days #9 06/14/20 unit/mL (1.5 mL) subcutaneous pen ml metformin 500 mg tablet,extended 1,000 mg PO BID 90 Days #360 tab 06/14/20 release 24hr budesonide-formoterol HFA 160 2 puff INHALATION BID #10.2 g 07/08/20 mcg-4.5 mcg/actuation aerosol inhaler furosemide 40 mg tablet 80 mg PO BID@0900,1800 #120 tab 07/08/20 metolazone 2.5 mg tablet 2.5 mg PO .three times a week #30 07/08/20 tab cholecalciferol (vitamin D3) 125 125 mcg PO DAILY #90 cap 07/30/20 mcg (5,000 unit) capsule vitamin E 400 unit capsule 1 cap PO DAILY #90 cap 08/01/20 Allergies Allergy/AdvReac Type Severity Reaction Status Date / Time erythromycin base Allergy Severe GI Verified 08/12/20 16:19 [From E-MYCIN] PAIN-SEVERE carvedilol Allergy Unknown upset Verified 08/12/20 16:19 stomach, sweats Review of Systems Review of Systems: Constitutional: Positive subjective Fever, positive Chills ENT/Mouth: No Hoarseness, No sore throat, No Rhinorrhea Eyes: No Redness, No Discharge, No Vision Changes Cardiovascular: No Chest Pain, positive SOB, positive Dyspnea on Exertion, positive Edema Respiratory: positive Cough, No Sputum, positive Wheezing, Gastrointestinal: Positive Nausea, No Vomiting, No Diarrhea, positive right upper quadrant abdominal Pain Genitourinary: No Dysuria, No Hematuria Musculoskeletal: No joint pain, No Myalgias Skin: No rash Neuro: No Weakness, No Numbness, No Headache Psych: No anxiety, depression Heme/Lymph: No Bruising, No Bleeding Endocrine: No Polyuria, No Polydipsia Yes all other systems are reviewed and are negative [facility] Past Medical History Attestation statement: The following information was validated with the patient. Source: old records reviewed Medical History Abnormal dexamethasone suppression test Chronic right heart failure COPD (chronic obstructive pulmonary disease) COPD (chronic obstructive pulmonary disease) Diabetes type 2, controlled Diabetes type 2, uncontrolled Diabetic nephropathy associated with type 2 diabetes mellitus Dyslipidemia Edema Hypermagnesemia Hypomagnesemia Morbid obesity Morbid obesity Neuropathy Nocturnal hypoxemia JACKSON (obstructive sleep apnea) JACKSON on CPAP Pulmonary hypertension Right heart failure Sleep apnea Tachycardia Surgical History History of carpal tunnel release Family History Family History Father Myocardial infarction Diabetes mellitus Mother Pancreatic cancer Maternal Grandfather Diabetes mellitus Maternal Aunt Pancreatic cancer Maternal Uncle AAA (abdominal aortic aneurysm) Brother No problems noted. Sister No problems noted. Sister No problems noted. Sister No problems noted. Son No problems noted. Daughter No problems noted. Daughter No problems noted. Social History Social History Household Members: Other Housing: House Alcohol intake: current Alcohol intake frequency: holidays/special occasions only Smoking Status: Former smoker Smoked in Last 30 Days: No Use of substances other than those prescribed or required for medical reasons: Yes Substance Use Type: Marijuana Substance Use Type Other:: ANXIETY Substance Use Frequency: Occasionally Advance Directives: No Advance Directives Information Provided: Yes service: No Current occupational status: unemployed Physical Exam Vital Signs: Vital Signs: Last Vital Signs Temp 98.7 F 08/12/20 23:39 Pulse 104 H 08/12/20 23:39 Resp 20 08/12/20 23:39 BP 120/65 08/12/20 23:39 Pulse Ox 94 08/12/20 23:43 Body Mass Index 47.5 Appearance: Alert. Oriented X3. Mild distress. Eyes: Pupils equal, round and reactive to light. EOMI ENT: Pharynx normal. Tympanic membranes intact, nares patent Neck: Normal inspection. Neck supple. Trachea midline CVS: Tachycardic heart rate and rhythm. Pulses normal. Respiratory: Tachypneic, lung sounds expiratory wheezing noted bilaterally. Abdomen: Soft and nontender to palpation Skin: Skin warm and dry. Normal skin color. Normal skin turgor. Extremities: +2 edema to bilateral lower extremities to the knee Neuro: No motor deficit. No sensory deficit. Cranial nerves 2-12 intact no focal neural deficits Course Course Course Narrative: 60-year-old female presents with shortness of breath, intermittent and subjective fevers and chills, dry cough. States to have used 80 mg of Lasix and metolazone today to help with her swelling, states that the swelling started to increase a couple days ago and she could not get it under control with her medication regimen. Second complaint is right upper abdominal pain, states that she feels like it could be a gallbladder attack but does not describe any difference in pain before and after eating and has a negative Up sign. It was noted that patient became hypoxic on room air at 88% while ambulating to the restroom. Patient is now on 2 L nasal cannula with oxygen saturation at 95%. Labs do not indicate elevated white count or liver enzymes, bicarb is 41 most likely consistent with COPD, CHF and noncompliance with CPAP. Order for VBG and chest CT scan. CT scan is negative for acute findings, COVID negative. Discussion with hospitalist regarding plan of care, plan is to admit for CHF exacerbation and hypoxia. Patient verbalized understanding of and agrees to plan care for admission. Consultations Consultation #1: Tc Time: 22:45 Medical Decision Making Differential Diagnosis Differential Diagnosis: CHF, COVID-19, pneumonia, cholecystitis, UTI Medical Records Medical records reviewed: Yes I reviewed the patient's medical records. Lab Data Lab results reviewed: Yes I reviewed the patient's lab results. Result diagrams: 08/12/20 18:35 08/12/20 18:35 Labs: Lab Results 08/12/20 08/12/20 08/12/20 Range/Units 18:35 18:35 18:35 WBC 8.5 (4.8-10.8) X10*3/uL RBC 4.61 (4.20-5.50) X10*6/uL Hgb 13.8 (12.0-16.0) g/dl Hct 42.7 (37-47) % MCV 92.6 (80-98) fL MCH 29.9 (27.0-33.0) pg MCHC 32.3 (31.0-35.0) g/dl RDW 15.1 (11.0-16.0) % Plt Count 226 (160-400) X10*3/uL MPV 10.6 (9.4-12.3) fL Immature Gran % (Auto) 0.5 H (0.0-0.4) % Neut % (Auto) 69.4 (45-73) % Lymph % (Auto) 21.1 (20-40) % Dawson % (Auto) 7.9 (2-11) % Eos % (Auto) 0.7 (0-4) % Baso % (Auto) 0.4 (0-2) % Lymph # (Auto) 1.8 (1.2-4.9) X10*3/uL Dawson # (Auto) 0.7 (0.1-1.2) X10*3/uL Eos # (Auto) 0.1 (0.0-0.4) X10*3/uL Baso # (Auto) 0.0 (0.0-0.2) X10*3/uL Abs Immat Gran (auto) 0.04 H (0.00-0.03) X10*3/uL Absolute Neuts (auto) 5.9 (2.0-8.3) X10*3/uL Absolute Nucleated RBC 0.000 (0.0-0.012) X10*3/uL Nucleated RBC % (auto) 0.0 (0.0-0.2) /100WBC Hold Blue Top SEE NOTE VBG pH (7.32-7.43) VBG pCO2 mmHg VBG pO2 mmHg VBG HCO3 mmol/L VBG O2 Saturation % VBG Base Excess mmol/L Sodium (135-145) mmol/L Potassium (3.3-5.1) mmol/L Chloride (96-108) mmol/L Carbon Dioxide (22-29) mmol/L Anion Gap (12-20) BUN (9-16) mg/dL Creatinine (0.5-1.4) mg/dL Estim Creat Clear Calc Estimated GFR Random Glucose (60-115) mg/dL Calcium (8.4-10.2) mg/dL Total Bilirubin (0.0-1.0) mg/dL Direct Bilirubin (0.0-0.5) mg/dL AST (5-31) U/L ALT (0-31) U/L Alkaline Phosphatase (39-117) U/L Troponin I High Sens (<3.5-17.0) ng/L B-Natriuretic Peptide (<100) pg/mL Total Protein (6.5-8.0) g/dL Albumin (3.5-5.0) g/dL Lipase (8-78) U/L Urine Color YELLOW Urine Appearance CLEAR Urine pH 6.0 (5.0-8.0) Ur Specific [place] 1.015 (1.005-1.025) Urine Protein NEG (NEG-TRACE) MG/DL Urine Glucose (UA) NEG (NEG) MG/DL Urine Ketones NEG (NEG) MG/DL Urine Blood NEG (NEG) Urine Nitrite NEG (NEG) Ur Leukocyte Esterase NEG (NEG) Coronavirus (PCR) (Negative) Influenza Type A (PCR) (Negative) Influenza Type B (PCR) (Negative) RSV RNA Qual (PCR) (Negative) 08/12/20 08/12/20 08/12/20 Range/Units 18:35 18:35 19:14 WBC (4.8-10.8) X10*3/uL RBC (4.20-5.50) X10*6/uL Hgb (12.0-16.0) g/dl Hct (37-47) % MCV (80-98) fL MCH (27.0-33.0) pg MCHC (31.0-35.0) g/dl RDW (11.0-16.0) % Plt Count (160-400) X10*3/uL MPV (9.4-12.3) fL Immature Gran % (Auto) (0.0-0.4) % Neut % (Auto) (45-73) % Lymph % (Auto) (20-40) % Dawson % (Auto) (2-11) % Eos % (Auto) (0-4) % Baso % (Auto) (0-2) % Lymph # (Auto) (1.2-4.9) X10*3/uL [place] # (Auto) (0.1-1.2) X10*3/uL Eos # (Auto) (0.0-0.4) X10*3/uL Baso # (Auto) (0.0-0.2) X10*3/uL Abs Immat Gran (auto) (0.00-0.03) X10*3/uL Absolute Neuts (auto) (2.0-8.3) X10*3/uL Absolute Nucleated RBC (0.0-0.012) X10*3/uL Nucleated RBC % (auto) (0.0-0.2) /100WBC Hold Blue Top VBG pH (7.32-7.43) VBG pCO2 mmHg VBG pO2 mmHg VBG HCO3 mmol/L VBG O2 Saturation % VBG Base Excess mmol/L Sodium 142 (135-145) mmol/L Potassium 3.7 (3.3-5.1) mmol/L Chloride 88 L (96-108) mmol/L Carbon Dioxide 41 H* D (22-29) mmol/L Anion Gap 17 (12-20) BUN 29 H (9-16) mg/dL Creatinine 1.35 (0.5-1.4) mg/dL Estim Creat Clear Calc 55.3 Estimated GFR 40 Random Glucose 131 H (60-115) mg/dL Calcium 9.0 (8.4-10.2) mg/dL Total Bilirubin 1.5 H (0.0-1.0) mg/dL Direct Bilirubin 0.8 H (0.0-0.5) mg/dL AST 12 (5-31) U/L ALT 11 (0-31) U/L Alkaline Phosphatase 100 (39-117) U/L Troponin I High Sens 9.4 (<3.5-17.0) ng/L B-Natriuretic Peptide 645 H (<100) pg/mL Total Protein 6.7 (6.5-8.0) g/dL Albumin 4.1 (3.5-5.0) g/dL Lipase 7 L (8-78) U/L Urine Color Urine Appearance Urine pH (5.0-8.0) Ur Specific [place] (1.005-1.025) Urine Protein (NEG-TRACE) MG/DL Urine Glucose (UA) (NEG) MG/DL Urine Ketones (NEG) MG/DL Urine Blood (NEG) Urine Nitrite (NEG) Ur Leukocyte Esterase (NEG) Coronavirus (PCR) NEGATIVE (Negative) Influenza Type A (PCR) NEGATIVE (Negative) Influenza Type B (PCR) NEGATIVE (Negative) RSV RNA Qual (PCR) NEGATIVE (Negative) 08/12/20 Range/Units 20:16 WBC (4.8-10.8) X10*3/uL RBC (4.20-5.50) X10*6/uL Hgb (12.0-16.0) g/dl Hct (37-47) % MCV (80-98) fL MCH (27.0-33.0) pg MCHC (31.0-35.0) g/dl RDW (11.0-16.0) % Plt Count (160-400) X10*3/uL MPV (9.4-12.3) fL Immature Gran % (Auto) (0.0-0.4) % Neut % (Auto) (45-73) % Lymph % (Auto) (20-40) % Dawson % (Auto) (2-11) % Eos % (Auto) (0-4) % Baso % (Auto) (0-2) % Lymph # (Auto) (1.2-4.9) X10*3/uL [place] # (Auto) (0.1-1.2) X10*3/uL Eos # (Auto) (0.0-0.4) X10*3/uL Baso # (Auto) (0.0-0.2) X10*3/uL Abs Immat Gran (auto) (0.00-0.03) X10*3/uL Absolute Neuts (auto) (2.0-8.3) X10*3/uL Absolute Nucleated RBC (0.0-0.012) X10*3/uL Nucleated RBC % (auto) (0.0-0.2) /100WBC Hold Blue Top VBG pH 7.46 H (7.32-7.43) VBG pCO2 64 mmHg VBG pO2 38 mmHg VBG HCO3 47 mmol/L VBG O2 Saturation 54.0 % VBG Base Excess 19.3 mmol/L Sodium (135-145) mmol/L Potassium (3.3-5.1) mmol/L Chloride (96-108) mmol/L Carbon Dioxide (22-29) mmol/L Anion Gap (12-20) BUN (9-16) mg/dL Creatinine (0.5-1.4) mg/dL Estim Creat Clear Calc Estimated GFR Random Glucose (60-115) mg/dL Calcium (8.4-10.2) mg/dL Total Bilirubin (0.0-1.0) mg/dL Direct Bilirubin (0.0-0.5) mg/dL AST (5-31) U/L ALT (0-31) U/L Alkaline Phosphatase (39-117) U/L Troponin I High Sens (<3.5-17.0) ng/L B-Natriuretic Peptide (<100) pg/mL Total Protein (6.5-8.0) g/dL Albumin (3.5-5.0) g/dL Lipase (8-78) U/L Urine Color Urine Appearance Urine pH (5.0-8.0) Ur Specific [place] (1.005-1.025) Urine Protein (NEG-TRACE) MG/DL Urine Glucose (UA) (NEG) MG/DL Urine Ketones (NEG) MG/DL Urine Blood (NEG) Urine Nitrite (NEG) Ur Leukocyte Esterase (NEG) Coronavirus (PCR) (Negative) Influenza Type A (PCR) (Negative) Influenza Type B (PCR) (Negative) RSV RNA Qual (PCR) (Negative) Imaging Data Chest x-ray: Attestation: I personally reviewed and interpreted this imaging study as follows: Radiologist's impression: EXAMINATION: PORTABLE CHEST 1 VIEW CLINICAL INFORMATION: sob . COMPARISON: 05/17/2020. TECHNIQUE: Portable frontal view of the chest was obtained. FINDINGS: The lungs are well expanded. Chronic appearing reticular markings with minimal basilar atelectasis are seen but no superimposed focal focal infiltrate, effusion, edema, or pneumothorax. Cardiac and mediastinal silhouettes remain prominent similar to the prior study. No acute bony abnormality seen. XR/XR chest 1V IMPRESSION: Stable enlarged cardiac silhouette. Minimal basilar markings more likely due to atelectasis. No overt edema or dense consolidation. CT scan - chest: Attestation: I personally reviewed and interpreted this imaging study as follows: Radiologist's impression: EXAMINATION: CT CHEST WITHOUT CONTRAST CLINICAL INFORMATION: sob, hypoxia . COMPARISON: Chest x-ray today and 05/17/2020 CT scan. TECHNIQUE: Multidetector volumetric imaging was performed from the thoracic inlet through the lung bases without contrast. Sagittal and coronal reformatted images were obtained on the technologist workstation. Soft tissue and lung algorithms evaluated. Thick slab MIP images were performed to increase nodule conspicuity. This CT examination was performed using dose optimization techniques as appropriate, variously including the following: *Automated exposure control *Adjustment of mA and/or kV according to patient size (this includes techniques or standardized protocols for targeted exams where dose is matched to indication/reason for exam; i.e. extremities or head) *Use of iterative reconstruction technique DLP: 432 mGy-cm. FINDINGS: LUNG: Stable 6 mm pulmonary nodule in the anterior aspect of the right upper lobe, not significantly changed from the oldest available 06/26/2019 CT scan. No new pulmonary nodules seen. No dense consolidation with linear regions of probable atelectasis or scarring bilaterally. MEDIASTINUM: Mild vascular calcification within the aorta. No hilar or mediastinal lymphadenopathy. PERICARDIUM/PLEURA: Small pericardial effusion. No pericardial thickening or nodularity identified. No pleural effusion. THYROID/VISUALIZED LOWER NECK: Unremarkable. CHEST WALL/AXILLA: Unremarkable. VISUALIZED UPPER ABDOMEN: Unremarkable. CT/CT chest wo con IMPRESSION: Stable right upper lobe pulmonary nodule not significantly changed from recent prior studies. Linear regions more likely due to scarring or atelectasis bilaterally ECG Data Attestation: I personally reviewed and interpreted this ECG as follows: Prior ECG tracings: available for review Interpretation: Vent. rate 98 BPM TX interval 162 ms QRS duration 102 ms QT/QTc 430/548 ms P-R-T axes 80 102 55 Normal sinus rhythm Right atrial enlargement Incomplete right bundle branch block Possible Right ventricular hypertrophy Cannot rule out Anteroseptal infarct (cited on or before 26-JUN-2019) Prolonged QT Abnormal ECG When compared with ECG of 17-MAY-2020 19:49, QT has lengthened 12-AUG-2020 22:41:09 Critical Care Time Critical Care Time Critical Care Time: Yes Total Critical Care Time: 45 Attestation: I have personally provided critical care time exclusive of time spent on separately billable procedures. Time includes review of laboratory data, radiology results, discussion with consultants, and monitoring for potential decompensation. Interventions were performed as documented. Discharge Plan Discharge Clinical Impression: Hypoxia CHF exacerbation Qualifiers: Heart failure type: systolic Qualified Code(s): I50.23 - Acute on chronic systolic (congestive) heart failure Patient Disposition: Home, Self-Care
[2020-08-12 19:16] LABS: B Type Natriuretic Peptide 645 pg/mL (<100); Troponin-I High Sensitivity 9.4 ng/L (<3.5-17.0)
[2020-08-12 19:18] LABS: Anion Gap 17 (12-20); Blood Urea Nitrogen 29 mg/dL (9-16); Carbon Dioxide 41 mmol/L (22-29); Chloride 88 mmol/L (96-108); Creatinine Clr Calc Pharmacy 55.3; Estimated Glomerular Filt Rate 40; Glucose Random 131 mg/dL (60-115); Potassium 3.7 mmol/L (3.3-5.1); Sodium 142 mmol/L (135-145)
[2020-08-12 19:20] LABS: Alanine Aminotransferase 11 U/L (0-31); Albumin Level 4.1 g/dL (3.5-5.0); Alkaline Phosphatase 100 U/L (39-117); Aspartate Amino Transferase 12 U/L (5-31); Bilirubin Direct 0.8 mg/dL (0.0-0.5); Bilirubin Total 1.5 mg/dL (0.0-1.0); Lipase 7 U/L (8-78); Total Protein 6.7 g/dL (6.5-8.0)
[2020-08-12] MEDS: Ibuprofen 800 MG TABLET PO (20:04)
[2020-08-12 20:05] LABS: Influenza A PCR NEGATIVE (Negative); Influenza B PCR NEGATIVE (Negative); Resp Syncy Virus RNA Qual PCR NEGATIVE (Negative); SARS COV2 PCR INHOUSE NEGATIVE (Negative)
[2020-08-12 20:27] LABS: PCO2 VBG 64 mmHg; pH VBG 7.46 (7.32-7.43)
[2020-08-12 20:28] LABS: Base Excess VBG 19.3 mmol/L; HCO3 VBG 47 mmol/L; PO2 VBG 38 mmHg
--- NOTE | 2020-08-12 21:42 | PC.NURSE ---
GIVEN APPLE JUICE, TUNA SANDWICH AND JELLO.
--- NOTE | 2020-08-12 22:02 | PC.NURSE ---
RIGHT BUNDLE BRANCH BLOCK NOTED ON WEIR FISHER. REMAINS TACHYPNIC ON 1L NC AT THIS TIME.
--- NOTE | 2020-08-12 22:38 | ECG_ITS ---
Test Reason : SOB Blood Pressure : / mmHG Vent. Rate : 098 BPM Atrial Rate : 098 BPM P-R Int : 162 ms QRS Dur : 102 ms QT Int : 410 ms P-R-T Axes : 080 102 055 degrees QTc Int : 524 ms Normal sinus rhythm Right atrial enlargement Incomplete right bundle branch block Possible Right ventricular hypertrophy Prolonged QT Abnormal ECG When compared with ECG of 17-MAY-2020 19:49, QT has lengthened Referred By: Nichole Samuel Electronically Signed By:KATHY MERCEDES
--- NOTE | 2020-08-12 23:39 | PC.NURSE ---
AMBULATED TO BATHROOM WITH DIFFICULTY NEEDING 1 ASSIST. PATIENT 88% ON ROOM AIR UPON RETURN TO ROOM. PLACED BACK ON 1L.
[2020-08-13] VITALS (8 sets, daily range): BP systolic 97–126; BP diastolic 66–85; PULSE 95–103; RESP 20–22; TEMP 35.9–36.9; O2SAT 92–95; BMI 47.5
[2020-08-13] MEDS: 0.9 % Sodium Chloride Flush 3 ML SYRINGE IVFLUSH ×3 (00:11→13:39)
[2020-08-13] MEDS: Acetaminophen 325 MG TABLET 650 MG PO ×3 (00:17→13:43)
[2020-08-13] MEDS: Heparin Sodium,Porcine 5,000 UNIT/ML VIAL 5000 UNIT SUBCUT ×3 (00:18→23:59)
--- NOTE | 2020-08-13 06:38 | PM.IMHP ---
History of Present Illness Date of Service: 08/12/20 Chief Complaint: leg swelling, abd pain This is a 52-year-old female with past medical history of COPD, DM, CHF, diabetes, hypertension, sleep apnea on CPAP, who presents to the hospital with complaints of lower extremity edema bilaterally as well as right upper quadrant abdominal pain. Patient reports that since discharge in May after being managed for CHF she has been using metolazone p.r.n. for any swelling in her legs at the recommendation of her business analyst intern. she also takes lasix 80 mg BID and has been compliant but for past 1 wk noticed increased swelling in her legs and exertional SOB. She has also noticed orthopnea and PND. Patient reports that she started taking metolazone yesterday but she continued to have swelling in her legs although improved. She is also complaining of right upper quadrant abdominal pain. She has no fever or chills, she reports that she has chronic intermittent right upper quadrant abdominal pain and has been to the hospital about this in the past. The pain is 8/10, radiating to the back, constant, not associated with any alleviating or exacerbating factors including food. No nausea or vomiting, no diarrhea constipation, no urinary symptoms. She also has severe pain in her feet bilaterally. On arrival to the ED stable with no significant abnormal vitals except for, oxygen saturation to 89% on ambulation.91% at rest. Does not use oxygen at baseline Labs are significant for total bili of 1.5, direct of 0.8, no elevated AST ALT or alk-phos, BNP of 645, otherwise unremarkable. Chest CT shows stable right upper lobe pulmonary nodule not significantly changed, in the near regions possibly atelectasis versus scarring past medical history: COPD/asthma, diabetes, hypertension, sleep apnea on CPAP, seasonal allergies, bronchitis Surgical history: Carpal tunnel, tubal ligation Social history: Significant for PR, diabetes, and pancreatic cancer in mother Shows show history: Comes from home, former smoker, denies any alcohol or illicit drugs Review of Systems Review of Systems: Yes all other systems are reviewed and are negative [facility] Medical History Abnormal dexamethasone suppression test Chronic right heart failure COPD (chronic obstructive pulmonary disease) COPD (chronic obstructive pulmonary disease) Diabetes type 2, controlled Diabetes type 2, uncontrolled Diabetic nephropathy associated with type 2 diabetes mellitus Dyslipidemia Edema Hypermagnesemia Hypomagnesemia Morbid obesity Morbid obesity Neuropathy Nocturnal hypoxemia JACKSON (obstructive sleep apnea) JACKSON on CPAP Pulmonary hypertension Right heart failure Sleep apnea Tachycardia Family History Father Myocardial infarction Diabetes mellitus Mother Pancreatic cancer Maternal Grandfather Diabetes mellitus Maternal Aunt Pancreatic cancer Maternal Uncle AAA (abdominal aortic aneurysm) Brother No problems noted. Sister No problems noted. Sister No problems noted. Sister No problems noted. Son No problems noted. Daughter No problems noted. Daughter No problems noted. Surgical History History of carpal tunnel release Social History Household Members: Other Housing: House Alcohol intake: current Alcohol intake frequency: holidays/special occasions only Smoking Status: Former smoker Smoked in Last 30 Days: No Use of substances other than those prescribed or required for medical reasons: Yes Substance Use Type: Marijuana Substance Use Type Other:: ANXIETY Substance Use Frequency: Occasionally Advance Directives: No Advance Directives Information Provided: Yes service: No Current occupational status: unemployed Meds Allergies Allergy/AdvReac Type Severity Reaction Status Date / Time erythromycin base Allergy Severe GI Verified 08/12/20 16:19 [From E-MYCIN] PAIN-SEVERE carvedilol Allergy Unknown upset Verified 08/12/20 16:19 stomach, sweats Home Medications Medication Instructions Recorded Confirmed Type albuterol sulfate [Ventolin HFA] 2 puff INHALATION Q4H PRN 05/17/20 08/12/20 History montelukast 10 mg tablet 10 mg PO BEDTIME 05/17/20 08/12/20 History omeprazole 40 mg capsule,delayed 40 mg PO BEDTIME 05/17/20 08/12/20 History release tiotropium bromide 2.5 2 puff INHALATION DAILY 06/07/20 08/12/20 History mcg/actuation mist for inhalation atorvastatin 10 mg PO BEDTIME 08/12/20 08/12/20 History dulaglutide [Trulicity] 1.5 mg SUBCUT QWEEK 08/12/20 08/12/20 History potassium chloride 20 meq PO BEDTIME 08/12/20 08/12/20 History Physical Exam Vital Signs and Narrative: Vital Signs: Last Vital Signs Temp 98.4 F 08/13/20 03:47 Pulse 98 08/13/20 03:47 Resp 20 08/13/20 03:47 BP 107/68 08/13/20 03:47 Pulse Ox 95 08/13/20 03:47 Body Mass Index 47.5 Const: General: cooperative and no acute distress Orientation/consciousness: patient oriented x3 Eyes: General: appearance normal, both eyes and all related structures Resp: Effort & Inspection: normal respiratory effort and able to speak in complete sentences Cardio: Rate: regular rate Rhythm: regular rhythm GI: Palpation (GI): Soft to palpation Auscultation: normal bowel sounds Skin: General skin exam: no rashes or lesions noted Neuro: General: patient oriented x3 Cognition (Neuro): normal cognition Extrem: Other: 2+ bilateral pitting edema reaching to just below the knees General: Yes normal to inspection Results Labs CBC and Chem 7: 08/12/20 18:35 08/12/20 18:35 Labs: Laboratory Results - last 24 hr 08/12/20 08/12/20 08/12/20 18:35 18:35 18:35 MCV 92.6 MCH 29.9 MCHC 32.3 RDW 15.1 Plt Count 226 MPV 10.6 Immature Gran % (Auto) 0.5 H Neut % (Auto) 69.4 Lymph % (Auto) 21.1 [place] % (Auto) 7.9 Eos % (Auto) 0.7 Baso % (Auto) 0.4 Lymph # (Auto) 1.8 [place] # (Auto) 0.7 Eos # (Auto) 0.1 Baso # (Auto) 0.0 Abs Immat Gran (auto) 0.04 H Absolute Neuts (auto) 5.9 Absolute Nucleated RBC 0.000 Nucleated RBC % (auto) 0.0 Hold Blue Top SEE NOTE VBG pH VBG pCO2 VBG pO2 VBG HCO3 VBG O2 Saturation VBG Base Excess Anion Gap Estim Creat Clear Calc Estimated GFR Random Glucose Calcium Total Bilirubin Direct Bilirubin AST ALT Alkaline Phosphatase Troponin I High Sens B-Natriuretic Peptide Total Protein Albumin Lipase Urine Color YELLOW Urine Appearance CLEAR Urine pH 6.0 Ur Specific [place] 1.015 Urine Protein NEG Urine Glucose (UA) NEG Urine Ketones NEG Urine Blood NEG Urine Nitrite NEG Ur Leukocyte Esterase NEG Coronavirus (PCR) Influenza Type A (PCR) Influenza Type B (PCR) RSV RNA Qual (PCR) 08/12/20 08/12/20 08/12/20 18:35 18:35 19:14 MCV MCH MCHC RDW Plt Count MPV Immature Gran % (Auto) Neut % (Auto) Lymph % (Auto) [place] % (Auto) Eos % (Auto) Baso % (Auto) Lymph # (Auto) [place] # (Auto) Eos # (Auto) Baso # (Auto) Abs Immat Gran (auto) Absolute Neuts (auto) Absolute Nucleated RBC Nucleated RBC % (auto) Hold Blue Top VBG pH VBG pCO2 VBG pO2 VBG HCO3 VBG O2 Saturation VBG Base Excess Anion Gap 17 Estim Creat Clear Calc 55.3 Estimated GFR 40 Random Glucose 131 H Calcium 9.0 Total Bilirubin 1.5 H Direct Bilirubin 0.8 H AST 12 ALT 11 Alkaline Phosphatase 100 Troponin I High Sens 9.4 B-Natriuretic Peptide 645 H Total Protein 6.7 Albumin 4.1 Lipase 7 L Urine Color Urine Appearance Urine pH Ur Specific [place] Urine Protein Urine Glucose (UA) Urine Ketones Urine Blood Urine Nitrite Ur Leukocyte Esterase Coronavirus (PCR) NEGATIVE Influenza Type A (PCR) NEGATIVE Influenza Type B (PCR) NEGATIVE RSV RNA Qual (PCR) NEGATIVE 08/12/20 20:16 MCV MCH MCHC RDW Plt Count MPV Immature Gran % (Auto) Neut % (Auto) Lymph % (Auto) [place] % (Auto) Eos % (Auto) Baso % (Auto) Lymph # (Auto) [place] # (Auto) Eos # (Auto) Baso # (Auto) Abs Immat Gran (auto) Absolute Neuts (auto) Absolute Nucleated RBC Nucleated RBC % (auto) Hold Blue Top VBG pH 7.46 H VBG pCO2 64 VBG pO2 38 VBG HCO3 47 VBG O2 Saturation 54.0 VBG Base Excess 19.3 Anion Gap Estim Creat Clear Calc Estimated GFR Random Glucose Calcium Total Bilirubin Direct Bilirubin AST ALT Alkaline Phosphatase Troponin I High Sens B-Natriuretic Peptide Total Protein Albumin Lipase Urine Color Urine Appearance Urine pH Ur Specific [place] Urine Protein Urine Glucose (UA) Urine Ketones Urine Blood Urine Nitrite Ur Leukocyte Esterase Coronavirus (PCR) Influenza Type A (PCR) Influenza Type B (PCR) RSV RNA Qual (PCR) Imaging Radiologist's Impressions: Impressions Chest X-Ray 08/12/20 17:28 IMPRESSION: Stable enlarged cardiac silhouette. Minimal basilar markings more likely due to atelectasis. No overt edema or dense consolidation. Chest CT 08/12/20 19:22 IMPRESSION: Stable right upper lobe pulmonary nodule not significantly changed from recent prior studies. Linear regions more likely due to scarring or atelectasis bilaterally. Assessment and Plan (1) CHF exacerbation: Qualifiers: Heart failure type: systolic Qualified Code(s): I50.23 - Acute on chronic systolic (congestive) heart failure Status: Acute (2) Hypoxia: Status: Acute (3) Neuropathy: Status: Acute (4) JACKSON on CPAP: Problem details: PATIENT HAS SEVERE JACKSON WITH NOCTURNAL HYPOXEMIA. NEEDS TO USE CPAP REGULARLY AT LEAST FOR 6 HOURS EVERY NIGHT. SO FOR SHE HAS BEEN VERY NON COMPLIANT. I EDUCATED HER IN DETAIL THE IMPORTANCE OF USING CPAP . SHE PROMISES THAT SHE WILL USE IT EVERY NIGHT. EVEN WITH THE USE OF CPAP SHE MAY STILL HAVE PERSISTENT HYPOXEMIA, WHICH WILL BE PARTLY CONTRIBUTED BY CHRONIC OBSTRUCTIVE PULMONARY DISEASE/HYPOVENTILATION WHEN SHE START USING CPAP REGULARLY SHE WOULD HAVE AN OVERNIGHT OXIMETRY RECORDING, AND IF HYPOXEMIA IS PERSISTENT THEN SHE WILL NEED OXYGEN SUPPLEMENTATION ALSO. Status: Acute (5) Diabetic nephropathy associated with type 2 diabetes mellitus: Status: Acute (6) Abdominal pain: Status: Acute This is a 60-year-old female past medical history of CHF, who presents to the hospital with lower extremity edema. # CHF exacerbation - patient has elevated BNP, lower extremity edema, as well as dyspnea - last echo done in late 2019 shows ejection fraction of 60-65% - patient is on Lasix 80 mg b.i.d. and last seen business analyst intern in June who recommended using metolazone as p.r.n. when she has lower extremity edema, which she has been using for the past 2 days although has not used it for the past 2 weeks plan: - at this time will start her on Lasix 80 mg IV b.i.d. - will not repeat echo since she had 1 recently done - I&O, low-sodium diet, daily weight - consult cardiology # abdominal pain - has right upper quadrant abdominal pain with Up sign positive, no leukocytosis, no fever, no evidence of acute infection - will obtain right upper quadrant ultrasound, if inconclusive full tried a obtain HIDA scan # Neuropathy - will start her on gabapentin 100 mg daily for pain in feet # diabetes - start on low-dose sliding scale insulin - diabetic diet # COPD - no evidence of exacerbation, although patient does have increased dyspnea it appears more secondary to CHF, has no increasing cough and no sputum production. - Will continu her home Singulair, and p.r.n. albuterol # sleep apnea - reports noncompliance with CPAP and is not interested in getting when here DVT prophylaxis: Heparin
[2020-08-13 06:44] LABS: MANUAL DIFF FLAG NO
[2020-08-13 06:49] LABS: Basophils Absolute Auto 0.1 X10*3/uL (0.0-0.2); Basophils Percent Auto 0.6 % (0-2); Eosinophils Absolute Auto 0.1 X10*3/uL (0.0-0.4); Eosinophils Percent Auto 1.1 % (0-4); Hematocrit 40.9 % (37-47); Imm Gran Abs Auto 0.04 X10*3/uL (0.00-0.03); Imm Gran Pct Auto 0.4 % (0.0-0.4); Lymphocytes Absolute Auto 1.8 X10*3/uL (1.2-4.9); Lymphocytes Percent Auto 19.6 % (20-40); Mean Corpuscular HGB Conc 31.8 g/dl (31.0-35.0); Mean Corpuscular Hemoglobin 29.5 pg (27.0-33.0); Monocytes Absolute Auto 0.8 X10*3/uL (0.1-1.2); Monocytes Percent Auto 9.2 % (2-11); Neutrophils Absolute Auto 6.2 X10*3/uL (2.0-8.3); Neutrophils Percent Auto 69.1 % (45-73); Platelet Count 222 X10*3/uL (160-400)
[2020-08-13 07:08] LABS: Anion Gap 19 (12-20); Blood Urea Nitrogen 35 mg/dL (9-16); Calcium 8.1 mg/dL (8.4-10.2); Carbon Dioxide 34 mmol/L (22-29); Chloride 90 mmol/L (96-108); Estimated Glomerular Filt Rate 29; Glucose Random 227 mg/dL (60-115); Potassium 2.8 mmol/L (3.3-5.1); Sodium 140 mmol/L (135-145)
--- NOTE | 2020-08-13 07:46 | PC.NURSE ---
PT GIVEN BKFST TRAY. MED WITH TYLENOL FOR ABD PAIN
[2020-08-13 08:08] LABS: Magnesium 1.3 mg/dL (1.6-2.6)
[2020-08-13 08:25] LABS: Glucose, Whole Blood 240 mg/dL (60-115)
[2020-08-13 08:26] LABS: Alanine Aminotransferase 9 U/L (0-31); Albumin Level 3.6 g/dL (3.5-5.0); Alkaline Phosphatase 89 U/L (39-117); Aspartate Amino Transferase 11 U/L (5-31); Bilirubin Direct 0.8 mg/dL (0.0-0.5); Bilirubin Total 1.4 mg/dL (0.0-1.0)
[2020-08-13] MEDS: Fluticasone/Vilanterol 200/25 BLST.W.DEV 1 PUFF INHALE (08:41)
[2020-08-13] MEDS: Potassium Chloride Packet 20 MEQ PACKET 40 MEQ PO (08:49)
[2020-08-13] MEDS: Insulin Lispro 100 UNIT/ML 3 ML VIAL SUBCUT ×3 (08:50→20:55)
[2020-08-13] MEDS: Gabapentin 100 MG CAPSULE PO (09:57)
--- NOTE | 2020-08-13 11:06 | PM.CNCAR ---
History of Present Illness History of Present Illness Date of Service: 08/13/20 Consult reason: congestive heart failure Chief complaint: CHF exacerbation Narrative: This is a cardiology consultation regarding congestive heart failure. She has a history of cor pulmonale. Last year, she was admitted for leg swelling and shortness of breath. This showed led to an echocardiogram showing severe pulmonary hypertension and right ventricular dysfunction. She has obstructive sleep apnea and still does not use CPAP appropriately. She was on oral diuretics but the last few days, she has been feeling more short of breath than usual and also having leg swelling. She took a couple of dose of metolazone and that did help and then she presented to the hospital. She has also had some discomfort in the right upper quadrant. We have been asked to see her for further evaluation. Review of Systems Review of Systems: Yes all other systems are reviewed and are negative Cardiovascular: Cardiovascular: Reports as per HPI, Reports no additional cardiovascular complaints, Denies acrocyanosis, Denies cool extremities, Denies painful fingertips, Denies chest pain, Denies chest pain at rest, Denies diaphoresis, Denies syncope, Denies irregular heart rhythm, Denies claudication, Reports leg edema, Denies lightheadedness, Denies palpitations and Reports dyspnea Respiratory: Respiratory: Reports dyspnea Neurologic: Denies syncope Endocrine: Endocrine: Denies palpitations [facility] Past Medical History Medical History Abnormal dexamethasone suppression test Chronic right heart failure COPD (chronic obstructive pulmonary disease) COPD (chronic obstructive pulmonary disease) Diabetes type 2, controlled Diabetes type 2, uncontrolled Diabetic nephropathy associated with type 2 diabetes mellitus Dyslipidemia Edema Hypermagnesemia Hypomagnesemia Morbid obesity Morbid obesity Neuropathy Nocturnal hypoxemia JACKSON (obstructive sleep apnea) JACKSON on CPAP Pulmonary hypertension Right heart failure Sleep apnea Tachycardia Family History Family History Father Myocardial infarction Diabetes mellitus Mother Pancreatic cancer Maternal Grandfather Diabetes mellitus Maternal Aunt Pancreatic cancer Maternal Uncle AAA (abdominal aortic aneurysm) Brother No problems noted. Sister No problems noted. Sister No problems noted. Sister No problems noted. Son No problems noted. Daughter No problems noted. Daughter No problems noted. Surgical History Surgical History History of carpal tunnel release Social History Social History Household Members: Family Housing: House Do you presently have visiting nurse or other home services: No Alcohol intake: current Alcohol intake frequency: holidays/special occasions only Smoking Status: Former smoker Smoked in Last 30 Days: No Use of substances other than those prescribed or required for medical reasons: Yes Substance Use Type: Marijuana Substance Use Type Other:: ANXIETY Substance Use Frequency: Occasionally Currently Displaying Signs/Symptoms of Drug Intoxication Withdrawal: No Have you been hit, kicked, punched, or otherwise hurt by someone within the past year? If so, by whom?: No Do you feel safe in your current relationship?: No Current Relationship Is there a partner from a previous relationship who is making you feel unsafe now?: No Advance Directives: No Advance Directives Information Provided: Yes Do you have thoughts of harming others: None Do you have a plan to hurt others: No Plan Recently lost weight without trying: No service: No Current occupational status: unemployed Meds Allergies Allergy/AdvReac Type Severity Reaction Status Date / Time erythromycin base Allergy Severe GI Verified 08/12/20 16:19 [From E-MYCIN] PAIN-SEVERE carvedilol Allergy Unknown upset Verified 08/12/20 16:19 stomach, sweats Home Medications Medication Instructions Recorded Confirmed Type albuterol sulfate [Ventolin HFA] 2 puff INHALATION Q4H PRN 05/17/20 08/12/20 History montelukast 10 mg tablet 10 mg PO BEDTIME 05/17/20 08/12/20 History omeprazole 40 mg capsule,delayed 40 mg PO BEDTIME 05/17/20 08/12/20 History release tiotropium bromide 2.5 2 puff INHALATION DAILY 06/07/20 08/12/20 History mcg/actuation mist for inhalation atorvastatin 10 mg PO BEDTIME 08/12/20 08/12/20 History dulaglutide [Trulicity] 1.5 mg SUBCUT QWEEK 08/12/20 08/12/20 History potassium chloride 20 meq PO BEDTIME 08/12/20 08/12/20 History Physical Exam Vital Signs: Vital Signs: Last Vital Signs Temp 96.6 F L 08/13/20 08:00 Pulse 97 08/13/20 08:45 Resp 20 08/13/20 08:00 BP 123/79 08/13/20 08:00 Pulse Ox 93 08/13/20 08:00 Body Mass Index 47.5 Const: General: cooperative, comfortable and no acute distress Orientation/consciousness: patient oriented x3 HENMT: Other: Unremarkable Neck: Neck: Yes normal visual inspection Chest: Chest palpation & inspection: normal inspection of the chest Resp: Auscultation: no crackles, no wheezes and diminished lung sounds Cardio: Jugular venous distension: no JVD Palpation: normal PMI Heart sounds: S1 normal heart sound present, S2 normal heart sound present, no gallops, no murmurs and no rubs GI: Palpation (GI): Soft to palpation Back/Spine/Pelvis: Other: unremarkable Skin: General skin exam: no rashes or lesions noted Neuro: General: patient oriented x3 Extrem: General: Yes edema (2+ bilateral) Psych: Mental Status: mental status grossly normal Results Labs and Meds Result diagrams: 08/13/20 06:34 08/13/20 06:34 Lab results: Laboratory Results - last 24 hr 08/12/20 08/12/20 08/12/20 18:35 18:35 18:35 WBC 8.5 RBC 4.61 Hgb 13.8 Hct 42.7 MCV 92.6 MCH 29.9 MCHC 32.3 RDW 15.1 Plt Count 226 MPV 10.6 Immature Gran % (Auto) 0.5 H Neut % (Auto) 69.4 Lymph % (Auto) 21.1 [place] % (Auto) 7.9 Eos % (Auto) 0.7 Baso % (Auto) 0.4 Lymph # (Auto) 1.8 [place] # (Auto) 0.7 Eos # (Auto) 0.1 Baso # (Auto) 0.0 Abs Immat Gran (auto) 0.04 H Absolute Neuts (auto) 5.9 Absolute Nucleated RBC 0.000 Nucleated RBC % (auto) 0.0 Hold Blue Top SEE NOTE VBG pH VBG pCO2 VBG pO2 VBG HCO3 VBG O2 Saturation VBG Base Excess Sodium Potassium Chloride Carbon Dioxide Anion Gap BUN Creatinine Estim Creat Clear Calc Estimated GFR POC Glucose Random Glucose Calcium Magnesium Total Bilirubin Direct Bilirubin AST ALT Alkaline Phosphatase Troponin I High Sens B-Natriuretic Peptide Total Protein Albumin Lipase Urine Color YELLOW Urine Appearance CLEAR Urine pH 6.0 Ur Specific [place] 1.015 Urine Protein NEG Urine Glucose (UA) NEG Urine Ketones NEG Urine Blood NEG Urine Nitrite NEG Ur Leukocyte Esterase NEG Coronavirus (PCR) Influenza Type A (PCR) Influenza Type B (PCR) RSV RNA Qual (PCR) 08/12/20 08/12/20 08/12/20 18:35 18:35 19:14 WBC RBC Hgb Hct MCV MCH MCHC RDW Plt Count MPV Immature Gran % (Auto) Neut % (Auto) Lymph % (Auto) [place] % (Auto) Eos % (Auto) Baso % (Auto) Lymph # (Auto) [place] # (Auto) Eos # (Auto) Baso # (Auto) Abs Immat Gran (auto) Absolute Neuts (auto) Absolute Nucleated RBC Nucleated RBC % (auto) Hold Blue Top VBG pH VBG pCO2 VBG pO2 VBG HCO3 VBG O2 Saturation VBG Base Excess Sodium 142 Potassium 3.7 Chloride 88 L Carbon Dioxide 41 H* D Anion Gap 17 BUN 29 H Creatinine 1.35 Estim Creat Clear Calc 55.3 Estimated GFR 40 POC Glucose Random Glucose 131 H Calcium 9.0 Magnesium Total Bilirubin 1.5 H Direct Bilirubin 0.8 H AST 12 ALT 11 Alkaline Phosphatase 100 Troponin I High Sens 9.4 B-Natriuretic Peptide 645 H Total Protein 6.7 Albumin 4.1 Lipase 7 L Urine Color Urine Appearance Urine pH Ur Specific [place] Urine Protein Urine Glucose (UA) Urine Ketones Urine Blood Urine Nitrite Ur Leukocyte Esterase Coronavirus (PCR) NEGATIVE Influenza Type A (PCR) NEGATIVE Influenza Type B (PCR) NEGATIVE RSV RNA Qual (PCR) NEGATIVE 08/12/20 08/13/20 08/13/20 20:16 06:34 06:34 WBC 9.0 RBC 4.40 Hgb 13.0 Hct 40.9 MCV 93.0 MCH 29.5 MCHC 31.8 RDW 15.0 Plt Count 222 MPV 11.0 Immature Gran % (Auto) 0.4 Neut % (Auto) 69.1 Lymph % (Auto) 19.6 L [place] % (Auto) 9.2 Eos % (Auto) 1.1 Baso % (Auto) 0.6 Lymph # (Auto) 1.8 [place] # (Auto) 0.8 Eos # (Auto) 0.1 Baso # (Auto) 0.1 Abs Immat Gran (auto) 0.04 H Absolute Neuts (auto) 6.2 Absolute Nucleated RBC 0.000 Nucleated RBC % (auto) 0.0 Hold Blue Top VBG pH 7.46 H VBG pCO2 64 VBG pO2 38 VBG HCO3 47 VBG O2 Saturation 54.0 VBG Base Excess 19.3 Sodium 140 Potassium 2.8 L D Chloride 90 L Carbon Dioxide 34 H Anion Gap 19 BUN 35 H Creatinine 1.78 H Estim Creat Clear Calc 42.0 Estimated GFR 29 POC Glucose Random Glucose 227 H D Calcium 8.1 L D Magnesium 1.3 L* Total Bilirubin 1.4 H Direct Bilirubin 0.8 H AST 11 ALT 9 Alkaline Phosphatase 89 Troponin I High Sens B-Natriuretic Peptide Total Protein 6.0 L Albumin 3.6 Lipase Urine Color Urine Appearance Urine pH Ur Specific [place] Urine Protein Urine Glucose (UA) Urine Ketones Urine Blood Urine Nitrite Ur Leukocyte Esterase Coronavirus (PCR) Influenza Type A (PCR) Influenza Type B (PCR) RSV RNA Qual (PCR) 08/13/20 08:08 WBC RBC Hgb Hct MCV MCH MCHC RDW Plt Count MPV Immature Gran % (Auto) Neut % (Auto) Lymph % (Auto) [place] % (Auto) Eos % (Auto) Baso % (Auto) Lymph # (Auto) [place] # (Auto) Eos # (Auto) Baso # (Auto) Abs Immat Gran (auto) Absolute Neuts (auto) Absolute Nucleated RBC Nucleated RBC % (auto) Hold Blue Top VBG pH VBG pCO2 VBG pO2 VBG HCO3 VBG O2 Saturation VBG Base Excess Sodium Potassium Chloride Carbon Dioxide Anion Gap BUN Creatinine Estim Creat Clear Calc Estimated GFR POC Glucose 240 H Random Glucose Calcium Magnesium Total Bilirubin Direct Bilirubin AST ALT Alkaline Phosphatase Troponin I High Sens B-Natriuretic Peptide Total Protein Albumin Lipase Urine Color Urine Appearance Urine pH Ur Specific [place] Urine Protein Urine Glucose (UA) Urine Ketones Urine Blood Urine Nitrite Ur Leukocyte Esterase Coronavirus (PCR) Influenza Type A (PCR) Influenza Type B (PCR) RSV RNA Qual (PCR) ECG Attestation: I personally reviewed and interpreted this ECG as follows: Interpretation: EKG was sinus rhythm; 98/Min; right atrial enlargement; incomplete right bundle-branch block; overall similar to prior. Imaging Radiologist's impression: Impressions Chest X-Ray 08/12/20 17:28 IMPRESSION: Stable enlarged cardiac silhouette. Minimal basilar markings more likely due to atelectasis. No overt edema or dense consolidation. Chest CT 08/12/20 19:22 IMPRESSION: Stable right upper lobe pulmonary nodule not significantly changed from recent prior studies. Linear regions more likely due to scarring or atelectasis bilaterally. Assessment and Plan (1) Acute on chronic right heart failure: Status: Resolved (2) JACKSON (obstructive sleep apnea): Status: Acute (3) Pulmonary hypertension: Status: Acute (4) Hypomagnesemia: Status: Acute (5) Hypokalemia: Status: Acute Clinically, she has some volume overload in the form of leg edema but otherwise seems okay. This is all from severe obstructive sleep apnea leading to pulmonary hypertension and right heart failure. Again encouraged going back on the CPAP but she states that is very uncomfortable. Ask Pulmonary for evaluation. Otherwise the right upper quadrant discomfort could also be related to right heart failure and hepatic congestion. She could also have independent hepatic/gallbladder issues and will need workup in that regard. Otherwise may use IV diuretics for a day or so once the lytes are corrected. Then go back on her home regimen.
[2020-08-13 11:51] LABS: Glucose, Whole Blood 133 mg/dL (60-115)
--- NOTE | 2020-08-13 13:07 | MHC.CM.PN ---
pt lives c her grandaughter in her home. she reports that she is independent in her care. she does not use any AD c ambulation and does not have any svcs in the home. [facility]. pt will have her grandaughter or daughter provide transportation at [place]. pt denies the need for vna at [place]. dc plan is home no svcs. cm to cont. to follow.
--- NOTE | 2020-08-13 15:05 | PM.EVENT ---
Event Note Date of Service: 08/23/20 Event Note: Patient seen and examined already this morning by the hospitalist team. Patient is seen and examined again Patient shortness of breath seems to be improved, but still has somewhat leg swelling Denies any chest pain or nausea or vomiting Still has mild right upper quadrant discomfort which is improving Abdominal ultrasound: Liver size is increased, but otherwise seems fine Physical exam: Cvs: rrr, [id number] , no murmur res: clear to auscultation ,no rhonchii or wheezing abd: no rebound or guarding ,nt, bs present. ext pulses present , no cyanosis , some leg sweeling neuro: axo3 , nonfocal. Assessment and plan coordinated in H&P note 1. CHF exacerbation/question of pulmonary hypertension , has copd on CPAP Cardio saw the patient-will continue diuresis? For today 2.? Mild BABAK: Nephrology evaluation pending, will continue to monitor electrolytes and renal function in the evening. 3. Right-sided abdominal pain: Abdominal ultrasound seems fine except hepatomegaly Will monitor LFTs , No leukocytosis, fever or any nausea or vomiting Abdominal discomfort is also improving as per patient If abdominal pain does not improve then may need HIDA
[2020-08-13] MEDS: Magnesium Sulfate/D5W 1 GM/100 ML PIGGYBACK IV (15:19)
[2020-08-13 15:56] LABS: Glucose, Whole Blood 173 mg/dL (60-115)
[2020-08-13] MEDS: Morphine Sulfate 2 MG/ML CARTRIDGE 1 MG IVPUSH ×2 (18:00→23:58)
[2020-08-13] MEDS: Magnesium Oxide 400 MG TABLET PO (18:00)
[2020-08-13 19:59] LABS: Glucose, Whole Blood 257 mg/dL (60-115)
[2020-08-13] MEDS: Montelukast Sodium 10 MG TABLET PO (20:56)
[2020-08-13] MEDS: Atorvastatin Calcium 10 MG TABLET PO (20:56)
[2020-08-13] MEDS: Potassium Chloride ER 20 MEQ TAB.ER.PRT PO (20:56)
[2020-08-13] MEDS: Omeprazole 40 MG CAPSULE.DR PO (20:56)
[2020-08-13 22:11] LABS: Anion Gap 16 (12-20); Blood Urea Nitrogen 40 mg/dL (9-16); Calcium 8.3 mg/dL (8.4-10.2); Carbon Dioxide 36 mmol/L (22-29); Chloride 88 mmol/L (96-108); Creatinine Clr Calc Pharmacy 41.1; Estimated Glomerular Filt Rate 29; Glucose Random 202 mg/dL (60-115); Potassium 3.4 mmol/L (3.3-5.1); Sodium 137 mmol/L (135-145)
[2020-08-13] MEDS: Furosemide 100 MG/10 ML VIAL 60 MG IVPUSH (22:17)
[2020-08-13 22:21] LABS: Potassium Urine Random 65.1 mmol/L
[2020-08-14] MEDS: 0.9 % Sodium Chloride Flush 3 ML SYRINGE IVFLUSH ×4 (00:06→23:41)
[2020-08-14 04:00] VITALS: BP 119/73; PULSE 98; RESP 20; TEMP 36.4; O2SAT 92
[2020-08-14 06:00] VITALS: BMI 47.6
[2020-08-14 07:18] LABS: Anion Gap 23 (12-20); Blood Urea Nitrogen 38 mg/dL (9-16); Calcium 8.2 mg/dL (8.4-10.2); Carbon Dioxide 35 mmol/L (22-29); Chloride 86 mmol/L (96-108); Creatinine Clr Calc Pharmacy 50.2; Estimated Glomerular Filt Rate 36; Glucose Random 144 mg/dL (60-115); Sodium 141 mmol/L (135-145)
[2020-08-14 07:23] LABS: Glucose, Whole Blood 151 mg/dL (60-115)
[2020-08-14] MEDS: Acetaminophen 325 MG TABLET 650 MG PO (07:41)
[2020-08-14] MEDS: Furosemide 100 MG/10 ML VIAL 60 MG IVPUSH (07:43)
[2020-08-14] MEDS: Gabapentin 100 MG CAPSULE PO (07:43)
[2020-08-14] MEDS: Magnesium Oxide 400 MG TABLET PO ×2 (07:43→17:35)
[2020-08-14] MEDS: Insulin Glargine,Hum.rec.anlog 100 UNIT/ML 10 ML VIAL 8 UNIT SUBCUT (07:44)
[2020-08-14 07:49] VITALS: BP 130/74; PULSE 95; RESP 18; TEMP 36.3; O2SAT 93
[2020-08-14] MEDS: Insulin Lispro 100 UNIT/ML 3 ML VIAL SUBCUT ×4 (08:20→21:40)
--- NOTE | 2020-08-14 08:49 | PM.CNGS ---
History of Present Illness Consult details Consult date: 08/13/20 <Marilynn oMtt PA-C - Last Filed: 08/14/20 09:21> Reason for consult: abdominal pain <Marilynn Mott PA-C - Last Filed: 08/14/20 09:21> Requesting physician: Kaykay Noble <Marilynn Mott PA-C - Last Filed: 08/14/20 09:21> Narrative: Ms. Golden is a 60 year old female with extensive PMH including COPD, DM, CHF, diabetes, hypertension, sleep apnea on CPAP, who presented to the ED with complaints of leg swelling and abdominal pain. She had noticed increased in b/l leg swelling and shortness of breath over the past week. She had an oxygen saturation of 89% with ambulation and 91% at rest. Chest CT demonstrated stable right upper lobe pulmonary nodule not significantly changed with possible atelectasis versus scarring. Labs were significant for total bili of 1.5, direct of 0.8, BNP of 645, other labs unremarkable. She was admitted to the hospitalist service for further treatment of the CHF exacerbation. During her stay, her RUQ pain persisted. An ABD US was therefore obtained which showed an enlarged liver heterogeneous in echotexture without biliary ductal dilatation. The gallbladder was contracted with no definite stones, cystic wall thickening. Repeat LFTs were unchanged. Surgery was consulted for further evaluation. She reports she has had intermittent RUQ for the last 4-5 years. This current episode began this past Wednesday. She began to develop some RUQ discomfort which progressed to RUQ pain associated with nausea and one episode of vomiting. She also reports a low grade fever at home to 101. The pain persisted and this prompted her to seek care in the ED along with her leg swelling. She reports her last episode was 3-4 months ago. She describes her usual episodes as RUQ discomfort radiating to the back associated with nausea and diarrhea. The usually worsen with food consumption but resolve in a day or two. She has been seen at [facility] as well as by Dr. Gutierrez for evaluation of this. ABD US has never demonstrated gallstones or cholecystitis. She also had a HIDA scan with [facility] in 2017 which was normal. She therefore underwent an EGD with biopsies which demonstrated gastritis. This morning, she reports the pain is still present but a little improved. <Marilynn Mott PA-C Last Filed: 08/14/20 09:21> Review of Systems Constitutional: Constitutional: Reports fever(s) <Marilynn Mott PA-C Last Filed: 08/14/20 09:21> Eyes: Eyes: Denies blurry vision <Marilynn Mott PA-C Last Filed: 08/14/20 09:21> ENT: Denies dizziness <Marilynn Mott PA-C Last Filed: 08/14/20 09:21> Cardiovascular: Cardiovascular: Denies chest pain, Reports leg edema and Reports dyspnea <Marilynn Mott PA-C Last Filed: 08/14/20 09:21> Respiratory: Respiratory: Denies cough and Reports dyspnea <Marilynn Mott PA-C Last Filed: 08/14/20 09:21> Gastrointestinal: Gastrointestinal: Reports as per HPI <Marilynn Mott PA-C Last Filed: 08/14/20 09:21> Genitourinary: Genitourinary: Denies hematuria and Denies dysuria <Marilynn Mott PA-C Last Filed: 08/14/20 09:21> Integumentary/Breasts: Skin/Breast: Denies change in pigmentation <Marilynn Mott PA-C Last Filed: 08/14/20 09:21> Neurologic: Denies dizziness <Marilynn Mott PA-C Last Filed: 08/14/20 09:21> [facility] Past Medical History Medical History: Medical History Abnormal dexamethasone suppression test Chronic right heart failure COPD (chronic obstructive pulmonary disease) COPD (chronic obstructive pulmonary disease) Diabetes type 2, controlled Diabetes type 2, uncontrolled Diabetic nephropathy associated with type 2 diabetes mellitus Dyslipidemia Edema Hypermagnesemia Hypomagnesemia Morbid obesity Morbid obesity Neuropathy Nocturnal hypoxemia JACKSON (obstructive sleep apnea) JACKSON on CPAP Pulmonary hypertension Right heart failure Sleep apnea Tachycardia <Marilynn Mott PA-C Last Filed: 08/14/20 09:21> Family History Family History: Family History Father Myocardial infarction Diabetes mellitus Mother Pancreatic cancer Maternal Grandfather Diabetes mellitus Maternal Aunt Pancreatic cancer Maternal Uncle AAA (abdominal aortic aneurysm) Brother No problems noted. Sister No problems noted. Sister No problems noted. Sister No problems noted. Son No problems noted. Daughter No problems noted. Daughter No problems noted. <Marilynn Mott PA-C - Last Filed: 08/14/20 09:21> Surgical History Surgical History: Surgical History History of carpal tunnel release <Marilynn Mott PA-C - Last Filed: 08/14/20 09:21> Social History Social History: Social History Household Members: Family Housing: House Do you presently have visiting nurse or other home services: No Alcohol intake: current Alcohol intake frequency: holidays/special occasions only Smoking Status: Former smoker Smoked in Last 30 Days: No Use of substances other than those prescribed or required for medical reasons: Yes Substance Use Type: Marijuana Substance Use Type Other:: ANXIETY Substance Use Frequency: Occasionally Currently Displaying Signs/Symptoms of Drug Intoxication Withdrawal: No Have you been hit, kicked, punched, or otherwise hurt by someone within the past year? If so, by whom?: No Do you feel safe in your current relationship?: No Current Relationship Is there a partner from a previous relationship who is making you feel unsafe now?: No Advance Directives: No Advance Directives Information Provided: Yes Do you have thoughts of harming others: None Do you have a plan to hurt others: No Plan Recently lost weight without trying: No service: No Current occupational status: unemployed <Marilynn Mott PA-C - Last Filed: 08/14/20 09:21> Meds Allergies/Adverse reactions: Allergies Allergy/AdvReac Type Severity Reaction Status Date / Time erythromycin base Allergy Severe GI Verified 08/12/20 16:19 [From E-MYCIN] PAIN-SEVERE carvedilol Allergy Unknown upset Verified 08/12/20 16:19 stomach, sweats <VIOLET Mcfarlane Last Filed: 08/14/20 09:21> Active Medications: Current Medications Generic Name Dose Route Start Last Admin Trade Name Gigi PRN Reason Stop Dose Admin Acetaminophen 650 mg 08/12/20 23:45 08/14/20 07:41 Acetaminophen 325 Mg Tablet PO 650 mg Q6H PRN Administration Pain, Mild (Pain Scale 1-3) Albuterol Sulfate 2 puff 08/12/20 23:45 Albuterol Sulfate 90 Mcg 8 Gm Inhaler INHALE Q4H PRN Shortness Of Breath Atorvastatin Calcium 10 mg 08/13/20 21:00 08/13/20 20:56 Atorvastatin Calcium 10 Mg Tablet PO 10 mg BEDTIME SARAHI Administration Buspirone HCl 5 mg 08/13/20 09:00 08/14/20 07:43 Buspirone Hcl 5 Mg Tablet PO Not Given BID SARAHI Docusate Sodium 100 mg 08/12/20 23:45 Docusate Sodium 100 Mg Capsule PO DAILY PRN Constipation Fluticasone/Vilanterol 1 puff 08/13/20 08:00 08/14/20 07:11 Fluticasone/Vilanterol 200/25 Blst.W.Dev INHALE Not Given RDAILY [facility] Furosemide 60 mg 08/13/20 21:00 08/14/20 07:43 Furosemide 100 Mg/10 Ml Vial IVPUSH 60 mg BID SARAHI Administration Protocol Gabapentin 100 mg 08/13/20 09:00 08/14/20 07:43 Gabapentin 100 Mg Capsule PO 100 mg DAILY SARAHI Administration Heparin Sodium (Porcine) 5,000 unit 08/12/20 23:45 08/13/20 23:59 Heparin Sodium,Porcine 5,000 Unit/Ml Vial SUBCUT 5,000 unit Q12H SARAHI Administration Insulin Glargine 8 unit 08/14/20 09:00 08/14/20 07:44 Insulin Glargine,Hum.Rec.Anlog 100 Unit/Ml 10 Ml Vial SUBCUT 8 unit DAILY SARAHI Administration Insulin Human Lispro 0 unit 08/13/20 07:30 08/14/20 08:20 Insulin Lispro 100 Unit/Ml 3 Ml Vial SUBCUT 2 unit QIDACHS [facility] Administration Protocol Magnesium Oxide 400 mg 08/13/20 17:30 08/14/20 07:43 Magnesium Oxide 400 Mg Tablet PO 400 mg BIDPC SARAHI Administration Metolazone 2.5 mg 08/12/20 23:45 Metolazone 2.5 Mg Tablet PO .three times a week SARAHI Montelukast Sodium 10 mg 08/13/20 21:00 08/13/20 20:56 Montelukast Sodium 10 Mg Tablet PO 10 mg BEDTIME SARAHI Administration Morphine Sulfate 1 mg 08/13/20 17:10 08/13/20 23:58 Morphine Sulfate 2 Mg/Ml Cartridge IVPUSH 1 mg Q4H PRN Administration Pain, Severe (Pain Scale 7-10) Omeprazole 40 mg 08/13/20 21:00 08/13/20 20:56 Omeprazole 40 Mg Capsule.Dr PO 40 mg BEDTIME SARAHI Administration Ondansetron HCl 4 mg 08/12/20 23:45 Ondansetron Hcl 4 Mg/2 Ml Vial IVPUSH Q8H PRN Nausea and Vomiting Potassium Chloride 20 meq 08/13/20 21:00 08/13/20 20:56 Potassium Chloride Er 20 Meq Tab.Er.Prt PO 20 meq BEDTIME SARAHI Administration Potassium Chloride 40 meq 08/14/20 09:00 Potassium Chloride Er 20 Meq Tab.Er.Prt PO BID [facility] Sodium Chloride 3 ml 08/13/20 00:00 08/14/20 07:44 0.9 % Sodium Chloride Flush 3 Ml Syringe IVFLUSH 3 ml QSHIFT [facility] Administration Tiotropium [place] 1 puff 08/13/20 08:00 08/14/20 07:12 Tiotropium [place] 18 Mcg Cap.W.Dev INHALE Not Given RDAILY [facility] <Marilynn Mott PA-C - Last Filed: 08/14/20 09:21> Home medications: Home Medications Medication Instructions Recorded Confirmed Last Taken Type albuterol sulfate [Ventolin HFA] 2 puff INHALATION Q4H PRN 05/17/20 08/12/20 Unknown History montelukast 10 mg tablet 10 mg PO BEDTIME 05/17/20 08/12/20 08/11/20 History omeprazole 40 mg capsule,delayed 40 mg PO BEDTIME 05/17/20 08/12/20 08/11/20 History release tiotropium bromide 2.5 2 puff INHALATION DAILY 06/07/20 08/12/20 08/12/20 09:00 History mcg/actuation mist for inhalation atorvastatin 10 mg PO BEDTIME 08/12/20 08/12/20 08/11/20 History dulaglutide [Trulicity] 1.5 mg SUBCUT QWEEK 08/12/20 08/12/20 08/05/20 History potassium chloride 20 meq PO BEDTIME 08/12/20 08/12/20 08/11/20 History <VIOLET Mcfarlane Last Filed: 08/14/20 09:21> Physical Exam Vital Signs: Vital Signs: Last Vital Signs Temp 97.4 F 08/14/20 07:49 Pulse 95 08/14/20 07:49 Resp 18 08/14/20 07:49 BP 130/74 08/14/20 07:49 Pulse Ox 93 08/14/20 07:49 Body Mass Index 47.6 <Marilynn Mott PA-C [employer] Last Filed: 08/14/20 09:21> Const: General: comfortable, no acute distress and alert <Marilynn Mott PA-C [employer] Last Filed: 08/14/20 09:21> Nutritional Appearance: obese <Marilynn Mott PA-C [employer] Last Filed: 08/14/20 09:21> Orientation/consciousness: patient oriented x3 <Marilynn Mott PA-C [employer] Last Filed: 08/14/20 09:21> Eyes: Sclerae: sclerae normal <Marilynn Mott PA-C [employer] Last Filed: 08/14/20 09:21> Resp: Effort & Inspection: normal respiratory effort <Marilynn Mott PA-C [employer] Last Filed: 08/14/20 09:21> Cardio: Rate: regular rate <Marilynn Mott PA-C [employer] Last Filed: 08/14/20 09:21> GI: Inspection: Yes normal to inspection and No distended <Marilnyn Mott PA-C [employer] Last Filed: 08/14/20 09:21> Palpation (GI): Soft to palpation, Tenderness to palpation present (GI) in the RUQ; Up's sign negative and with no rebound tenderness, no guarding and not rigid <VIOLET Mcfarlane Last Filed: 08/14/20 09:21> Skin: Other: normal color, warm and dry <Marilynn Mott PA-C [employer] Last Filed: 08/14/20 09:21> General skin exam: no rashes or lesions noted <VIOLET Mcfarlane Last Filed: 08/14/20 09:21> Neuro: General: patient oriented x3 <VIOLET Mcfarlane Last Filed: 08/14/20 09:21> Extrem: Other: b/l LE dependent edema <VIOLET Mcfarlane Last Filed: 08/14/20 09:21> Results Labs Result diagrams: : 08/13/20 06:34 08/14/20 05:50 <VIOLET Mcfarlane Last Filed: 08/14/20 09:21> Labs: Abnormal lab results 08/13/20 08/13/20 08/13/20 Range/Units 11:43 15:49 19:53 Potassium (3.3-5.1) mmol/L Chloride (96-108) mmol/L Carbon Dioxide (22-29) mmol/L Anion Gap (12-20) BUN (9-16) mg/dL Creatinine (0.5-1.4) mg/dL POC Glucose 133 H 173 H 257 H (60-115) mg/dL Random Glucose (60-115) mg/dL Calcium (8.4-10.2) mg/dL 08/13/20 08/14/20 08/14/20 Range/Units 21:20 05:50 07:15 Potassium 3.0 L (3.3-5.1) mmol/L Chloride 88 L 86 L (96-108) mmol/L Carbon Dioxide 36 H 35 H (22-29) mmol/L Anion Gap 23 H (12-20) BUN 40 H 38 H (9-16) mg/dL Creatinine 1.82 H 1.49 H (0.5-1.4) mg/dL POC Glucose 151 H (60-115) mg/dL Random Glucose 202 H 144 H (60-115) mg/dL Calcium 8.3 L 8.2 L (8.4-10.2) mg/dL BMP 08/13/20 08/14/20 21:20 05:50 Sodium 137 141 Potassium 3.4 D 3.0 L Chloride 88 L 86 L Carbon Dioxide 36 H 35 H BUN 40 H 38 H Creatinine 1.82 H 1.49 H Calcium 8.3 L 8.2 L Urine 08/12/20 Range/Units 18:35 Urine Color YELLOW Urine Appearance CLEAR Urine pH 6.0 (5.0-8.0) Ur Specific [place] 1.015 (1.005-1.025) Urine Protein NEG (NEG-TRACE) MG/DL Urine Glucose (UA) NEG (NEG) MG/DL All other labs normal. XR/XR chest 1V IMPRESSION: Stable enlarged cardiac silhouette. Minimal basilar markings more likely due to atelectasis. No overt edema or dense consolidation. CT/CT chest wo con IMPRESSION: Stable right upper lobe pulmonary nodule not significantly changed from recent prior studies. Linear regions more likely due to scarring or atelectasis bilaterally. US/US abdomen limited IMPRESSION: Significantly echogenic heterogeneous texture of the liver but no focal lesions seen. Contracted gallbladder limiting evaluation. Visualized CBD, right kidney and pancreas are unremarkable. <Marilynn Mott PA-C - Last Filed: 08/14/20 09:21> Assessment and Plan (1) CHF exacerbation: Qualifiers: Heart failure type: systolic Qualified Code(s): I50.23 - Acute on chronic systolic (congestive) heart failure <Marilynn Mott PA-C - Last Filed: 08/14/20 09:21> Status: Acute <VIOLET Mcfarlane Last Filed: 08/14/20 09:21> (2) Diabetes type 2, uncontrolled: Status: Acute <Marilynn Mott PA-C - Last Filed: 08/14/20 09:21> (3) JACKSON (obstructive sleep apnea): Status: Acute <VIOLET Mcfarlane Last Filed: 08/14/20 09:21> (4) Abdominal pain: Status: Acute <VIOLET Mcfarlane Last Filed: 08/14/20 09:21> 60 year old female with PMH of CHF, COPD, JACKSON on CPAP, DM presenting with c/o RUQ pain associated with nausea, vomiting and fever. Patient has had intermittent episodes of RUQ pain for the past 4-5 years with negative workups for gallstones, cholecystitis. ABD US this admission showed enlarged, heterogenous liver with contracted GB without stones or wall thickening. She is sitting comfortably eating breakfast but reports continued pain with mild-moderate RUQ tenderness on exam, negative up sign. Will obtain HIDA scan with [facility] for further evaluation of GB. GI consult may be of benefit if negative. Case to be discussed with Dr. Cheng. <Marilynn Mott PA-C - Last Filed: 08/14/20 09:21> Patient seen and examined agree with the history physical exam, assessment and plan given by the PA. patient may likely have biliary dyskinesia which means that the gallbladder does not work well and patient may have some associated right upper quadrant discomfort that is vague and associated nausea. This can also be seen even with a normal HIDA scan. The plan should be for planning a outpatient cholecystectomy at some point in hopes of resolving the abdominal discomfort. There is no guarantee that a cholecystectomy will resolve the patient's abdominal pain but there is a high likelihood that the patient would benefit from cholecystectomy in the future. <Crissy Cheng MD - Last Filed: 08/14/20 10:12>
[2020-08-14 09:09] LABS: Magnesium 1.7 mg/dL (1.6-2.6)
[2020-08-14 09:16] LABS: Alanine Aminotransferase 11 U/L (0-31); Albumin Level 3.9 g/dL (3.5-5.0); Alkaline Phosphatase 94 U/L (39-117); Aspartate Amino Transferase 13 U/L (5-31); Bilirubin Direct 0.7 mg/dL (0.0-0.5); Bilirubin Total 1.3 mg/dL (0.0-1.0); Total Protein 6.5 g/dL (6.5-8.0)
[2020-08-14] MEDS: Potassium Chloride ER 20 MEQ TAB.ER.PRT 40 MEQ PO ×2 (09:39→21:36)
[2020-08-14] MEDS: Morphine Sulfate 2 MG/ML CARTRIDGE 1 MG IVPUSH ×2 (09:39→21:42)
--- NOTE | 2020-08-14 10:23 | PM.PNNEP ---
Subjective Subjective Date of Service: 08/14/20 Interval history: Events noted Feeling better Physical Exam Vital Signs: Vital Signs: Last Vital Signs Temp 97.4 F 08/14/20 07:49 Pulse 95 08/14/20 07:49 Resp 18 08/14/20 07:49 BP 130/74 08/14/20 07:49 Pulse Ox 93 08/14/20 07:49 Body Mass Index 47.6 Const: General: awake Neck: Neck: Yes supple Resp: Effort & Inspection: normal respiratory effort Cardio: Heart sounds: no murmurs and no rubs GI: Inspection: Yes obesity Auscultation: normal bowel sounds Skin: General skin exam: dry skin Neuro: Motor exam (neuro): No Asterixis during motor activity present Objective Data Labs CBC & Chem 7: 08/13/20 06:34 08/14/20 05:50 Labs: Laboratory Results - last 24 hr 08/13/20 08/13/20 08/13/20 11:43 15:49 19:53 Sodium Potassium Chloride Carbon Dioxide Anion Gap BUN Creatinine Estim Creat Clear Calc Estimated GFR POC Glucose 133 H 173 H 257 H Random Glucose Calcium Magnesium Total Bilirubin Direct Bilirubin AST ALT Alkaline Phosphatase Total Protein Albumin Ur Random Sodium Ur Random Potassium Ur Random Chloride 08/13/20 08/13/20 08/14/20 21:20 21:50 05:50 Sodium 137 141 Potassium 3.4 D 3.0 L Chloride 88 L 86 L Carbon Dioxide 36 H 35 H Anion Gap 16 23 H BUN 40 H 38 H Creatinine 1.82 H 1.49 H Estim Creat Clear Calc 41.1 50.2 Estimated GFR 29 36 POC Glucose Random Glucose 202 H 144 H Calcium 8.3 L 8.2 L Magnesium 1.7 Total Bilirubin 1.3 H Direct Bilirubin 0.7 H AST 13 ALT 11 Alkaline Phosphatase 94 Total Protein 6.5 Albumin 3.9 Ur Random Sodium 43.0 Ur Random Potassium 65.1 Ur Random Chloride 35.0 08/14/20 07:15 Sodium Potassium Chloride Carbon Dioxide Anion Gap BUN Creatinine Estim Creat Clear Calc Estimated GFR POC Glucose 151 H Random Glucose Calcium Magnesium Total Bilirubin Direct Bilirubin AST ALT Alkaline Phosphatase Total Protein Albumin Ur Random Sodium Ur Random Potassium Ur Random Chloride Assessment & Plan Assessment and plan (1) Hypokalemia: Problem details: Due to Translocation due to Alkalosis Status: Acute (2) BABAK (acute kidney injury): Status: Acute Assessment and Plan: Due to hypoperfusion Hold diuretics for today Expect renal recovery Check urine protein Time Spent With Patient Time: Total time spent is greater than 50% in coordination of care (as documented) at patient's floor/unit and/or counseling patient:
--- NOTE | 2020-08-14 10:57 | P.PNCA_ITS ---
Subjective Subjective Date of Service: 08/14/20 Interval history: She still has some shortness of breath but close to baseline. Leg swelling is still present, but again near baseline. Has right uppe quadrant pain. Review of Systems Review of Systems Yes all other systems are reviewed and are negative Cardiovascular: Reports as per HPI, Reports no additional cardiovascular complaints, Denies acrocyanosis, Denies cool extremities, Denies painful fingertips, Denies chest pain, Denies chest pain at rest, Denies diaphoresis, Denies syncope, Denies irregular heart rhythm, Denies claudication, Reports leg edema, Denies lightheadedness, Denies palpitations and Reports dyspnea Respiratory: Reports dyspnea Denies syncope Endocrine: Denies palpitations Physical Exam Vital Signs: Last Vital Signs Temp 97.4 F 08/14/20 07:49 Pulse 95 08/14/20 07:49 Resp 18 08/14/20 07:49 BP 130/74 08/14/20 07:49 Pulse Ox 93 08/14/20 07:49 Body Mass Index 47.6 Const General: cooperative, comfortable and no acute distress Orientation/consciousness: patient oriented x3 HENCA Other: Unremarkable Neck Neck: Yes normal visual inspection Chest Chest palpation & inspection: normal inspection of the chest Resp Auscultation: no crackles, no wheezes and diminished lung sounds Cardio Jugular venous distension: no JVD Palpation: normal PMI Heart sounds: S1 normal heart sound present, S2 normal heart sound present, no gallops, no murmurs and no rubs GI Palpation (GI): Soft to palpation Back/Spine/Pelvis Other: unremarkable Skin General skin exam: no rashes or lesions noted Neuro General: patient oriented x3 Extrem General: Yes edema (2+ bilateral) Psych Mental Status: mental status grossly normal Results Labs and Meds Result diagrams: 08/13/20 06:34 08/14/20 05:50 Lab results: Laboratory Results - last 24 hr 08/13/20 08/13/20 08/13/20 11:43 15:49 19:53 Sodium Potassium Chloride Carbon Dioxide Anion Gap BUN Creatinine Estim Creat Clear Calc Estimated GFR POC Glucose 133 H 173 H 257 H Random Glucose Calcium Magnesium Total Bilirubin Direct Bilirubin AST ALT Alkaline Phosphatase Total Protein Albumin Ur Random Sodium Ur Random Potassium Ur Random Chloride 08/13/20 08/13/20 08/14/20 21:20 21:50 05:50 Sodium 137 141 Potassium 3.4 D 3.0 L Chloride 88 L 86 L Carbon Dioxide 36 H 35 H Anion Gap 16 23 H BUN 40 H 38 H Creatinine 1.82 H 1.49 H Estim Creat Clear Calc 41.1 50.2 Estimated GFR 29 36 POC Glucose Random Glucose 202 H 144 H Calcium 8.3 L 8.2 L Magnesium 1.7 Total Bilirubin 1.3 H Direct Bilirubin 0.7 H AST 13 ALT 11 Alkaline Phosphatase 94 Total Protein 6.5 Albumin 3.9 Ur Random Sodium 43.0 Ur Random Potassium 65.1 Ur Random Chloride 35.0 08/14/20 07:15 Sodium Potassium Chloride Carbon Dioxide Anion Gap BUN Creatinine Estim Creat Clear Calc Estimated GFR POC Glucose 151 H Random Glucose Calcium Magnesium Total Bilirubin Direct Bilirubin AST ALT Alkaline Phosphatase Total Protein Albumin Ur Random Sodium Ur Random Potassium Ur Random Chloride Imaging Radiologist's impression: Impressions Abdomen Ultrasound 08/13/20 08:45 IMPRESSION: Significantly echogenic heterogeneous texture of the liver but no focal lesions seen. Contracted gallbladder limiting evaluation. Visualized CBD, right kidney and pancreas are unremarkable. Progress Note: A&P Assessment and plan (1) Acute on chronic right heart failure: Status: Resolved (2) JACKSON (obstructive sleep apnea): Status: Acute (3) Pulmonary hypertension: Status: Acute (4) Hypomagnesemia: Status: Acute (5) Hypokalemia: Status: Acute Assessment and Plan: She has some volume overload but I think it seems to be near her baseline at home. Okay to continue IV diuretics for a day or so but then switch back to p.o. This is all from severe obstructive sleep apnea leading to pulmonary hypertension and right heart failure. Again encouraged going back on the CPAP but she states that is very uncomfortable. Ask Pulmonary for evaluation. Otherwise the right upper quadrant discomfort could be related to right heart failure and hepatic congestion. However, she could also have independent hepatic/gallbladder issues and will need workup in that regard. Fall Risk Details Current Medications: Current Medications Generic Name Dose Route Start Last Admin Trade Name Freq PRN Reason Stop Dose Admin Acetaminophen 650 mg 08/12/20 23:45 08/14/20 07:41 Acetaminophen 325 Mg Tablet PO 650 mg Q6H PRN Administration Pain, Mild (Pain Scale 1-3) Albuterol Sulfate 2 puff 08/12/20 23:45 Albuterol Sulfate 90 Mcg 8 Gm Inhaler INHALE Q4H PRN Shortness Of Breath Atorvastatin Calcium 10 mg 08/13/20 21:00 08/13/20 20:56 Atorvastatin Calcium 10 Mg Tablet PO 10 mg BEDTIME SARAHI Administration Buspirone HCl 5 mg 08/13/20 09:00 08/14/20 07:43 Buspirone Hcl 5 Mg Tablet PO Not Given BID [facility] Docusate Sodium 100 mg 08/12/20 23:45 Docusate Sodium 100 Mg Capsule PO DAILY PRN Constipation Fluticasone/Vilanterol 1 puff 08/13/20 08:00 08/14/20 07:11 Fluticasone/Vilanterol 200/25 Blst.W.Dev INHALE Not Given RDAILY [facility] Gabapentin 100 mg 08/13/20 09:00 08/14/20 07:43 Gabapentin 100 Mg Capsule PO 100 mg DAILY SARAHI Administration Heparin Sodium (Porcine) 5,000 unit 08/12/20 23:45 08/13/20 23:59 Heparin Sodium,Porcine 5,000 Unit/Ml Vial SUBCUT 5,000 unit Q12H SARAHI Administration Insulin Glargine 8 unit 08/14/20 09:00 08/14/20 07:44 Insulin Glargine,Hum.Rec.Anlog 100 Unit/Ml 10 Ml Vial SUBCUT 8 unit DAILY SARAHI Administration Insulin Human Lispro 0 unit 08/13/20 07:30 08/14/20 08:20 Insulin Lispro 100 Unit/Ml 3 Ml Vial SUBCUT 2 unit QIDACHS SARAHI Administration Protocol Magnesium Oxide 400 mg 08/13/20 17:30 08/14/20 07:43 Magnesium Oxide 400 Mg Tablet PO 400 mg BIDPC SARAHI Administration Montelukast Sodium 10 mg 08/13/20 21:00 08/13/20 20:56 Montelukast Sodium 10 Mg Tablet PO 10 mg BEDTIME SARAHI Administration Morphine Sulfate 1 mg 08/13/20 17:10 08/14/20 09:39 Morphine Sulfate 2 Mg/Ml Cartridge IVPUSH 1 mg Q4H PRN Administration Pain, Severe (Pain Scale 7-10) Omeprazole 40 mg 08/13/20 21:00 08/13/20 20:56 Omeprazole 40 Mg Capsule.Dr PO 40 mg BEDTIME SARAHI Administration Ondansetron HCl 4 mg 08/12/20 23:45 Ondansetron Hcl 4 Mg/2 Ml Vial IVPUSH Q8H PRN Nausea and Vomiting Potassium Chloride 20 meq 08/13/20 21:00 08/13/20 20:56 Potassium Chloride Er 20 Meq Tab.Er.Prt PO 20 meq BEDTIME SARAHI Administration Potassium Chloride 40 meq 08/14/20 09:00 08/14/20 09:39 Potassium Chloride Er 20 Meq Tab.Er.Prt PO 40 meq BID SARAHI Administration Sodium Chloride 3 ml 08/13/20 00:00 08/14/20 07:44 0.9 % Sodium Chloride Flush 3 Ml Syringe IVFLUSH 3 ml QSHIFT SARAHI Administration Tiotropium [place] 1 puff 08/13/20 08:00 08/14/20 07:12 Tiotropium [place] 18 Mcg Cap.W.Dev INHALE Not Given RDAILY [facility] Time Spent With Patient Time: Total time spent is greater than 50% in coordination of care (as documented) at patient's floor/unit and/or counseling patient: Time with patient: less than 15 minutes
[2020-08-14 11:11] LABS: Glucose, Whole Blood 254 mg/dL (60-115)
[2020-08-14 11:26] VITALS: BP 123/81; PULSE 97; RESP 18; TEMP 36.7; O2SAT 93
--- NOTE | 2020-08-14 11:26 | CONS_ITS ---
DATE OF SERVICE: 08/13/2020 REASON FOR CONSULTATION: I was called to see this patient to assist in the management of severe hypokalemia and metabolic alkalosis. HISTORY OF PRESENT ILLNESS: To summarize, Laura is a 60-year-old woman with a history of obesity, diabetes mellitus, hypertension, COPD along with congestive heart failure and sleep apnea, who has been on diuretics. She comes in because of increasing swelling and abdominal pain. She is being managed for CHF by Dr. Cruz. She is currently on Lasix 80 mg b.i.d. and metolazone was increased to 2.5 mg 3 times a week. Upon admission, she was found to have severe alkalosis with a bicarb of 41 and potassium was 3.7. Over the next 12 hours, the potassium dropped to 2.7, but the bicarb improved to 34. She did sustain acute kidney injury and the creatinine has increased from 1.35 to 1.78 and hence this consultation. The corresponding ABG showed a pH of 7.46. Urinalysis on admission did not reveal any proteinuria. PAST MEDICAL HISTORY: Ongoing medical problems include obesity, obstructive sleep apnea on CPAP, diabetes mellitus, hypertension, chronic kidney disease probably stage 3, COPD. PAST SURGICAL HISTORY: Includes carpal tunnel like surgery and tubal ligation. SOCIAL HISTORY: No history of any smoking or alcohol abuse. FAMILY HISTORY: Pancreatic cancer and diabetes. REVIEW OF SYSTEMS: No headache, nausea, or vomiting. No shortness of breath. No chest pain. She had abdominal pain. No diarrhea or constipation. No polyuria or polydipsia. At present, she had increasing leg edema. No new rash. PHYSICAL EXAMINATION: GENERAL: Laura is a 60-year-old woman. She is obese, comfortable, not in any distress. NECK: Supple. No JVD. LUNGS: Air entry equal. No significant rales. HEART: S1, S2 heard. No gallop. No rub. ABDOMEN: Obese, soft. Bowel sounds heard. NEUROLOGIC: Alert and awake. No asterixis. EXTREMITIES: With mild edema. No rash. No clubbing. DIAGNOSTIC DATA: CT chest on admission showed stable right upper lobe pulmonary nodule. No evidence of any fluid overload. Abdominal ultrasonogram is pending. LABORATORY DATA: Hemoglobin 13.0, platelets 222, WBC 9.0. Sodium 140, potassium 2.8, BUN 13, creatinine 1.78, baseline creatinine is around 1.2 to 1.08. She has a urine microalbumin creatinine ratio of 249. ASSESSMENT AND PLAN: 1. Stage 3 chronic kidney disease, most likely due to hypertensive diabetic kidney disease. She has microalbuminuria in the setting of diabetes mellitus. 2. Hypokalemia with metabolic alkalosis. The hypokalemia is probably due to the potassium losses induced by diuretics as well as alkalosis causing translocation. She does have significant metabolic alkalosis. The next step is to differentiate between chloride responsive and chloride resistant alkalosis. We will check the urine chloride and if the urine chloride is less than 15, she probably has chloride responsive metabolic alkalosis due to diuretics. If the urine chloride is more than 15, I suspect she has chloride resistant metabolic alkalosis and this may be due to hypersecretion of mineralocorticoids. 3. History of hypertension. RECOMMENDATIONS: 1. My recommendation would be to hold the diuretics for the next 24 to 48 hours. Check urine for chloride and sodium. Replace potassium orally. If the urine chloride is less than 15, I would administer IV normal saline to correct the alkalosis. 2. senior care, she will definitely need optimization of blood sugar and blood pressure to slow the progression of the kidney disease. We will follow her closely along with the team. MD DREW Ledbetter/MODL / [id number]
--- NOTE | 2020-08-14 12:24 | P.PNIM_ITS ---
Subjective Subjective Date of Service: 08/14/20 Interval History: seen and examined this AM breathing / swelling improved RUQ pain improved as well ROS General - no fevers or chills Cardiovascular - no chest pain Respiratory - no shortness of breath or cough Abdominal- + RUQ abdominal pain, nausea, vomiting, diarrhea Physical Exam Vital Signs: Vital Signs: Last Vital Signs Temp 98.0 F 08/14/20 11:26 Pulse 97 08/14/20 11:26 Resp 18 08/14/20 11:26 BP 123/81 08/14/20 11:26 Pulse Ox 93 08/14/20 11:26 Body Mass Index 47.6 Const: General: cooperative and no acute distress Orientation/consciousness: patient oriented x3 Eyes: General: appearance normal, both eyes and all related structures Resp: Effort & Inspection: normal respiratory effort and able to speak in complete sentences Cardio: Rate: regular rate Rhythm: regular rhythm GI: Palpation (GI): Soft to palpation Auscultation: normal bowel sounds Skin: General skin exam: no rashes or lesions noted Neuro: General: patient oriented x3 Cognition (Neuro): normal cognition Extrem: Other: 2+ bilateral pitting edema reaching to just below the knees General: Yes normal to inspection Objective Data Current Medications Generic Name Dose Route Start Last Admin Trade Name Freq PRN Reason Stop Dose Admin Acetaminophen 650 mg 08/12/20 23:45 08/14/20 07:41 Acetaminophen 325 Mg Tablet PO 650 mg Q6H PRN Administration Pain, Mild (Pain Scale 1-3) Albuterol Sulfate 2 puff 08/12/20 23:45 Albuterol Sulfate 90 Mcg 8 Gm Inhaler INHALE Q4H PRN Shortness Of Breath Atorvastatin Calcium 10 mg 08/13/20 21:00 08/13/20 20:56 Atorvastatin Calcium 10 Mg Tablet PO 10 mg BEDTIME SARAHI Administration Buspirone HCl 5 mg 08/13/20 09:00 08/14/20 07:43 Buspirone Hcl 5 Mg Tablet PO Not Given BID SARAHI Docusate Sodium 100 mg 08/12/20 23:45 Docusate Sodium 100 Mg Capsule PO DAILY PRN Constipation Fluticasone/Vilanterol 1 puff 08/13/20 08:00 08/14/20 07:11 Fluticasone/Vilanterol 200/25 Blst.W.Dev INHALE Not Given RDAILY SARAHI Gabapentin 100 mg 08/13/20 09:00 08/14/20 07:43 Gabapentin 100 Mg Capsule PO 100 mg DAILY SARAHI Administration Heparin Sodium (Porcine) 5,000 unit 08/12/20 23:45 08/13/20 23:59 Heparin Sodium,Porcine 5,000 Unit/Ml Vial SUBCUT 5,000 unit Q12H SARAHI Administration Insulin Glargine 8 unit 08/14/20 09:00 08/14/20 07:44 Insulin Glargine,Hum.Rec.Anlog 100 Unit/Ml 10 Ml Vial SUBCUT 8 unit DAILY SARAHI Administration Insulin Human Lispro 0 unit 08/13/20 07:30 08/14/20 11:45 Insulin Lispro 100 Unit/Ml 3 Ml Vial SUBCUT 6 unit QIDACHS [facility] Administration Protocol Magnesium Oxide 400 mg 08/13/20 17:30 08/14/20 07:43 Magnesium Oxide 400 Mg Tablet PO 400 mg BIDPC SARAHI Administration Montelukast Sodium 10 mg 08/13/20 21:00 08/13/20 20:56 Montelukast Sodium 10 Mg Tablet PO 10 mg BEDTIME SARAHI Administration Morphine Sulfate 1 mg 08/13/20 17:10 08/14/20 09:39 Morphine Sulfate 2 Mg/Ml Cartridge IVPUSH 1 mg Q4H PRN Administration Pain, Severe (Pain Scale 7-10) Omeprazole 40 mg 08/13/20 21:00 08/13/20 20:56 Omeprazole 40 Mg Capsule.Dr PO 40 mg BEDTIME SARAHI Administration Ondansetron HCl 4 mg 08/12/20 23:45 Ondansetron Hcl 4 Mg/2 Ml Vial IVPUSH Q8H PRN Nausea and Vomiting Potassium Chloride 20 meq 08/13/20 21:00 08/13/20 20:56 Potassium Chloride Er 20 Meq Tab.Er.Prt PO 20 meq BEDTIME SARAHI Administration Potassium Chloride 40 meq 08/14/20 09:00 08/14/20 09:39 Potassium Chloride Er 20 Meq Tab.Er.Prt PO 40 meq BID SARAHI Administration Sodium Chloride 3 ml 08/13/20 00:00 08/14/20 07:44 0.9 % Sodium Chloride Flush 3 Ml Syringe IVFLUSH 3 ml QSHIFT [facility] Administration Tiotropium [place] 1 puff 08/13/20 08:00 08/14/20 07:12 Tiotropium [place] 18 Mcg Cap.W.Dev INHALE Not Given RDAILY [facility] Labs CBC & Chem 7: 08/13/20 06:34 08/14/20 05:50 Assessment and Plan (1) CHF exacerbation: Status: Acute (2) Hypoxia: Status: Acute (3) Neuropathy: Status: Acute (4) JACKSON on CPAP: Status: Acute (5) Diabetic nephropathy associated with type 2 diabetes mellitus: Status: Acute (6) Abdominal pain: Status: Acute Assessment and Plan: This is a 60-year-old female past medical history of CHF, who presents to the hospital with lower extremity edema. 1. Acute on chronic R CHF exacerbation IV diuretics, hold metolozone secondary to non-compliance / unable to tolerate CPAP -- will ask Pulm input into alternative cardioloyg input appreciated 2. Electrolyte abnormalities, hypoK po K replacement aggressively 3. BABAK on ckd improved nephrology consulted 4. RUQ abd pain ? related to hepatic congesion vs biliary issue HIDA today Gen Surg input appreciated continue other chronic meds Full Code DVT pptx, heparin # abdominal pain - has right upper quadrant abdominal pain with Up sign positive, no leukocytosis, no fever, no evidence of acute infection - will obtain right upper quadrant ultrasound, if inconclusive full tried a o btain HIDA scan # Neuropathy - will start her on gabapentin 100 mg daily for pain in feet # diabetes - start on low-dose sliding scale insulin - diabetic diet # COPD - no evidence of exacerbation, although patient does have increased dyspnea it appears more secondary to CHF, has no increasing cough and no sputum production. - Will continu her home Singulair, and p.r.n. albuterol # sleep apnea - reports noncompliance with CPAP and is not interested in getting when here DVT prophylaxis: Heparin
[2020-08-14 15:15] VITALS: PULSE 98; RESP 18; TEMP 36.1
[2020-08-14 15:16] VITALS: BP 109/80; PULSE 102; RESP 20; O2SAT 92
[2020-08-14 16:22] LABS: Glucose, Whole Blood 154 mg/dL (60-115)
[2020-08-14 19:11] VITALS: BP 153/62; PULSE 92; RESP 18; TEMP 36.8; O2SAT 90
[2020-08-14 20:39] LABS: Glucose, Whole Blood 297 mg/dL (60-115)
[2020-08-14] MEDS: busPIRone HCl 5 MG TABLET PO (21:25)
[2020-08-14] MEDS: Potassium Chloride ER 20 MEQ TAB.ER.PRT PO ×2 (21:26→21:47)
[2020-08-14] MEDS: Omeprazole 40 MG CAPSULE.DR PO (21:39)
[2020-08-14] MEDS: Montelukast Sodium 10 MG TABLET PO (21:39)
[2020-08-14] MEDS: Atorvastatin Calcium 10 MG TABLET PO (21:39)
[2020-08-14] MEDS: Heparin Sodium,Porcine 5,000 UNIT/ML VIAL 5000 UNIT SUBCUT (23:40)
[2020-08-15] VITALS: BP 100/64; PULSE 99; RESP 18; TEMP 36.7; O2SAT 94
[2020-08-15 03:52] VITALS: BP 110/62; PULSE 84; RESP 18; TEMP 37; O2SAT 94
[2020-08-15 05:29] VITALS: BMI 47.6
[2020-08-15 06:18] LABS: Hematocrit 42.1 % (37-47); Hemoglobin 13.5 g/dl (12.0-16.0); Mean Corpuscular HGB Conc 32.1 g/dl (31.0-35.0); Mean Corpuscular Hemoglobin 30.1 pg (27.0-33.0); Mean Corpuscular Volume 93.8 fL (80-98); Mean Platelet Volume 10.6 fL (9.4-12.3); Platelet Count 251 X10*3/uL (160-400); Red Blood Count 4.49 X10*6/uL (4.20-5.50); White Blood Count 7.3 X10*3/uL (4.8-10.8)
[2020-08-15 06:26] VITALS: BMI 47.7
[2020-08-15 07:09] LABS: Anion Gap 15 (12-20); Blood Urea Nitrogen 40 mg/dL (9-16); Calcium 8.6 mg/dL (8.4-10.2); Carbon Dioxide 39 mmol/L (22-29); Chloride 90 mmol/L (96-108); Creatinine Clr Calc Pharmacy 59.4; Estimated Glomerular Filt Rate 44; Glucose Random 145 mg/dL (60-115); Potassium 3.2 mmol/L (3.3-5.1); Sodium 141 mmol/L (135-145)
[2020-08-15 07:21] VITALS: BP 133/88; PULSE 97; RESP 19; TEMP 36.7; O2SAT 95
[2020-08-15 07:47] LABS: Glucose, Whole Blood 148 mg/dL (60-115)
--- NOTE | 2020-08-15 10:05 | PM.PNNEP ---
Subjective Subjective Date of Service: 08/16/20 Interval history: Events noted Physical Exam Vital Signs: Vital Signs: Last Vital Signs Temp 98.0 F 08/15/20 07:21 Pulse 97 08/15/20 07:21 Resp 19 08/15/20 07:21 BP 133/88 08/15/20 07:21 Pulse Ox 95 08/15/20 07:21 Body Mass Index 47.7 Const: General: awake Neck: Neck: Yes supple Resp: Effort & Inspection: normal respiratory effort Cardio: Heart sounds: no murmurs and no rubs GI: Inspection: Yes obesity Auscultation: normal bowel sounds Skin: General skin exam: dry skin Neuro: Motor exam (neuro): No Asterixis during motor activity present Objective Data Labs CBC & Chem 7: 08/15/20 05:34 08/16/20 07:49 Labs: Laboratory Results - last 24 hr 08/14/20 08/14/20 08/14/20 11:07 16:09 20:24 WBC RBC Hgb Hct MCV MCH MCHC RDW Plt Count MPV Absolute Nucleated RBC Nucleated RBC % (auto) Sodium Potassium Chloride Carbon Dioxide Anion Gap BUN Creatinine Estim Creat Clear Calc Estimated GFR POC Glucose 254 H 154 H 297 H Random Glucose Calcium 08/15/20 08/15/20 08/15/20 05:34 05:34 07:25 WBC 7.3 RBC 4.49 Hgb 13.5 Hct 42.1 MCV 93.8 MCH 30.1 MCHC 32.1 RDW 15.0 Plt Count 251 MPV 10.6 Absolute Nucleated RBC 0.000 Nucleated RBC % (auto) 0.0 Sodium 141 Potassium 3.2 L Chloride 90 L Carbon Dioxide 39 H Anion Gap 15 BUN 40 H Creatinine 1.26 Estim Creat Clear Calc 59.4 Estimated GFR 44 POC Glucose 148 H Random Glucose 145 H Calcium 8.6 Assessment & Plan Assessment and plan (1) Hypokalemia: Problem details: Due to Metabolic alkalosis Cl responsive vs Cl resistant Initial Urine Cl was 35 Repeat ordered today Status: Acute (2) BABAK (acute kidney injury): Status: Acute Assessment and Plan: Due to hypoperfusion Hold diuretics Expect renal recovery Check urine protein Time Spent With Patient Time: Total time spent is greater than 50% in coordination of care (as documented) at patient's floor/unit and/or counseling patient:
[2020-08-15] MEDS: Gabapentin 100 MG CAPSULE PO (10:10)
[2020-08-15] MEDS: Potassium Chloride ER 20 MEQ TAB.ER.PRT 40 MEQ PO ×2 (10:13→21:04)
[2020-08-15] MEDS: busPIRone HCl 5 MG TABLET PO (10:13)
[2020-08-15] MEDS: Insulin Glargine,Hum.rec.anlog 100 UNIT/ML 10 ML VIAL 8 UNIT SUBCUT (10:15)
[2020-08-15] MEDS: Magnesium Oxide 400 MG TABLET PO ×2 (10:24→17:00)
[2020-08-15 10:57] LABS: Sodium 142 mmol/L (135-145)
[2020-08-15 11:36] VITALS: BP 120/68; PULSE 101; RESP 18; TEMP 36.2; O2SAT 92
[2020-08-15 11:47] LABS: Glucose, Whole Blood 263 mg/dL (60-115)
[2020-08-15] MEDS: Insulin Lispro 100 UNIT/ML 3 ML VIAL SUBCUT ×3 (12:52→21:05)
[2020-08-15] MEDS: Heparin Sodium,Porcine 5,000 UNIT/ML VIAL 5000 UNIT SUBCUT (12:53)
--- NOTE | 2020-08-15 12:54 | HO.PM.IMPN ---
Subjective Subjective Date of Service: 08/15/20 Interval History: seen and examined this AM RUQ pain improving tolerating diet this afternoon ROS General - no fevers or chills Cardiovascular - no chest pain Respiratory - no shortness of breath or cough Abdominal- + RUQ abdominal pain, nausea, vomiting, diarrhea Physical Exam Vital Signs: Vital Signs: Last Vital Signs Temp 97.1 F 08/15/20 11:36 Pulse 101 H 08/15/20 11:36 Resp 18 08/15/20 11:36 BP 120/68 08/15/20 11:36 Pulse Ox 92 08/15/20 11:36 Body Mass Index 47.7 Const: General: cooperative and no acute distress Orientation/consciousness: patient oriented x3 Eyes: General: appearance normal, both eyes and all related structures Resp: Effort & Inspection: normal respiratory effort and able to speak in complete sentences Cardio: Rate: regular rate Rhythm: regular rhythm GI: Palpation (GI): Soft to palpation Auscultation: normal bowel sounds Skin: General skin exam: no rashes or lesions noted Neuro: General: patient oriented x3 Cognition (Neuro): normal cognition Extrem: Other: LE swelling improved General: Yes normal to inspection Objective Data Current Medications Generic Name Dose Route Start Last Admin Trade Name Freq PRN Reason Stop Dose Admin Acetaminophen 650 mg 08/12/20 23:45 08/14/20 07:41 Acetaminophen 325 Mg Tablet PO 650 mg Q6H PRN Administration Pain, Mild (Pain Scale 1-3) Albuterol Sulfate 2 puff 08/12/20 23:45 Albuterol Sulfate 90 Mcg 8 Gm Inhaler INHALE Q4H PRN Shortness Of Breath Atorvastatin Calcium 10 mg 08/13/20 21:00 08/14/20 21:39 Atorvastatin Calcium 10 Mg Tablet PO 10 mg BEDTIME SARAHI Administration Buspirone HCl 5 mg 08/13/20 09:00 08/15/20 10:13 Buspirone Hcl 5 Mg Tablet PO 5 mg BID SARAHI Administration Docusate Sodium 100 mg 08/12/20 23:45 Docusate Sodium 100 Mg Capsule PO DAILY PRN Constipation Fluticasone/Vilanterol 1 puff 08/13/20 08:00 08/15/20 08:14 Fluticasone/Vilanterol 200/25 Blst.W.Dev INHALE Not Given RDAILY SARAHI Gabapentin 100 mg 08/13/20 09:00 08/15/20 10:10 Gabapentin 100 Mg Capsule PO 100 mg DAILY SARAHI Administration Heparin Sodium (Porcine) 5,000 unit 08/12/20 23:45 08/14/20 23:40 Heparin Sodium,Porcine 5,000 Unit/Ml Vial SUBCUT 5,000 unit Q12H SARAHI Administration Insulin Glargine 8 unit 08/14/20 09:00 08/15/20 10:15 Insulin Glargine,Hum.Rec.Anlog 100 Unit/Ml 10 Ml Vial SUBCUT 8 unit DAILY SARAHI Administration Insulin Human Lispro 0 unit 08/13/20 07:30 08/15/20 07:40 Insulin Lispro 100 Unit/Ml 3 Ml Vial SUBCUT Not Given QIDACHS [facility] Protocol Magnesium Oxide 400 mg 08/13/20 17:30 08/15/20 10:24 Magnesium Oxide 400 Mg Tablet PO 400 mg BIDPC SARAHI Administration Montelukast Sodium 10 mg 08/13/20 21:00 08/14/20 21:39 Montelukast Sodium 10 Mg Tablet PO 10 mg BEDTIME SARAHI Administration Morphine Sulfate 1 mg 08/13/20 17:10 08/14/20 21:42 Morphine Sulfate 2 Mg/Ml Cartridge IVPUSH 1 mg Q4H PRN Administration Pain, Severe (Pain Scale 7-10) Omeprazole 40 mg 08/13/20 21:00 08/14/20 21:39 Omeprazole 40 Mg Capsule.Dr PO 40 mg BEDTIME SARAHI Administration Ondansetron HCl 4 mg 08/12/20 23:45 Ondansetron Hcl 4 Mg/2 Ml Vial IVPUSH Q8H PRN Nausea and Vomiting Potassium Chloride 40 meq 08/14/20 09:00 08/15/20 10:13 Potassium Chloride Er 20 Meq Tab.Er.Prt PO 40 meq BID SARAHI Administration Potassium Chloride 20 meq 08/14/20 21:45 08/14/20 21:47 Potassium Chloride Er 20 Meq Tab.Er.Prt PO 20 meq BEDTIME SARAHI Administration Sodium Chloride 3 ml 08/13/20 00:00 08/15/20 07:41 0.9 % Sodium Chloride Flush 3 Ml Syringe IVFLUSH Not Given QSHIFT [facility] Tiotropium [place] 1 puff 08/13/20 08:00 08/15/20 08:14 Tiotropium [place] 18 Mcg Cap.W.Dev INHALE Not Given RDAILY [facility] Zolpidem Tartrate 10 mg 08/15/20 21:00 Zolpidem Tartrate 5 Mg Tablet PO BEDTIME [facility] Labs CBC & Chem 7: 08/15/20 05:34 08/15/20 10:06 Assessment and Plan (1) CHF exacerbation: Status: Acute (2) Hypoxia: Status: Acute (3) Neuropathy: Status: Acute (4) JACKSON on CPAP: Status: Acute (5) Diabetic nephropathy associated with type 2 diabetes mellitus: Status: Acute (6) Abdominal pain: Status: Acute Assessment and Plan: This is a 60-year-old female past medical history of CHF, who presents to the hospital with lower extremity edema. 1. Acute on chronic R CHF exacerbation diuretics on hold secondary to non-compliance / unable to tolerate CPAP -- pulm consulted per cardiology recs cardioloyg input appreciated 2. Electrolyte abnormalities, hypoK continue with replacement 3. BABAK on ckd improved nephrology consult appreciated 4. RUQ abd pain clinically improved HIDA completed -- pending; Gen Surg on Board 5. JACKSON unable to tolerate previously. willing to attempt again. correlation of this to her cardiac status discussed in detail continue other chronic meds Full Code DVT pptx, heparin
[2020-08-15] MEDS: Morphine Sulfate 2 MG/ML CARTRIDGE 1 MG IVPUSH (14:04)
[2020-08-15 14:17] LABS: Creatinine Urine 110.16 mg/dL
--- NOTE | 2020-08-15 14:29 | CONS_ITS ---
DATE OF SERVICE: 08/15/2020 CHIEF COMPLAINT: Leg swelling, abdominal pain. HISTORY OF PRESENT ILLNESS: Ms. Golden is a 60-year-old woman with a known history of COPD, diabetes, heart failure, hypertension in addition to JACKSON, noncompliant to CPAP, who apparently was in the usual state of health until she started developing increasing abdominal discomfort, abdominal girth. She was also noticed increasing lower extremity swelling. She has been using metolazone for the additional diuresis. She has been taking the Lasix without any significant improvement. Therefore, the patient became more short of breath, decided to come into the [facility] for further evaluation. Upon arrival, the patient was found to be hypoxic down to 89%. She was placed on oxygen. Her liver function studies were elevated. Her brain natriuretic peptide was also elevated. She did undergo a CT scan of the chest demonstrating some areas of atelectasis versus scarring with some pulmonary nodules that have been there in the past. Therefore, the patient was admitted to the hospital with congestive heart failure, likely right-sided. Cardiology did evaluate the patient, they were concerned for the fact that she has not been tolerating her CPAP and ultimately worsening her overall cardiac status and increasing her cardiovascular risk for further complications. It was brought up other alternative to CPAP as far as surgical interventions. I did speak to the patient, right now CPAP is the gold standard and the patient does have a machine at home. I do believe that we will start with trying to provide her with a sleep aid to see if we can have her sleep and tolerate the CPAP therapy as it is the gold standard. Undergoing surgical interventions would not be effective for her. She does not have any significant retrognathia to recommend an oral mandibular advancement surgery. Although alternative to CPAP would be a hypoglossal nerve stimulator, again this is not going to be as effective as her tolerating CPAP. We will continue working with her. REVIEW OF SYSTEMS: Ten systems reviewed. Complains of the respiratory symptoms as stated above. Denies any DICE SPOTTER symptoms except daytime drowsiness. Complains of the GI symptoms. Denies any symptoms. Complains of the cardiac symptoms. Complains of the musculoskeletal symptoms. The rest of the 10-organ system is negative. ALLERGIES: ERYTHROMYCIN BASED MEDICATIONS AND COREG. CURRENT MEDICATIONS: Please refer to the MAR for the full list, include albuterol, heparin, Zofran, insulin, Breo, Spiriva, BuSpar, gabapentin, morphine, magnesium, Lipitor, Singulair, omeprazole, and zolpidem that was just added. PAST MEDICAL HISTORY: Right-sided heart failure, COPD, diabetes, dyslipidemia, morbid obesity, neuropathy, pulmonary hypertension, sleep apnea, tachycardia, among others. FAMILY HISTORY: Positive for heart disease and diabetes. SOCIAL HISTORY: She is a former smoker. Occasional alcohol. PHYSICAL EXAMINATION: VITAL SIGNS: Stable. Saturating 92% on 2 L. GENERAL: Pleasant lady, in no acute distress. HEENT: Pupils equal and reactive to light. Oropharynx clear. NECK: Supple. LUNGS: Diminished bilaterally. No wheezing or rhonchi appreciated. No crackles appreciated. CARDIAC: Regular rhythm, regular rate. ABDOMEN: Positive bowel sounds, soft. EXTREMITIES: No clubbing or cyanosis. LABORATORY DATA: CBC is normal. She did have a blood gas with a pH 7.46, pCO2 of 64, pO2 of 38 consistent with chronic compensated respiratory acidosis. Serology, she was negative for COVID-19, among others. She did undergo a HIDA scan that is pending. She also underwent a CT scan of the chest that was personally reviewed by me, appears to have increased cardiac size, some mosaic pattern, which could be due to air trapping, also is potentially pneumonitis or some degree of pulmonary engorgement, again, increased cardiac size. She has stable pulmonary nodules, some areas of atelectasis. ASSESSMENT: Ms. Golden is a 60-year-old woman, presenting with abdominal pain, lower extremity swelling, now being evaluated for further abdominal discomfort, found to be in heart failure, felt to be secondary to her poor adherence to CPAP therapy. IMPRESSION: 1. Obstructive sleep apnea. The patient does have evidence of complications including hypercapnia and pulmonary hypertension, so therefore, consistent with Pickwickian syndrome due to hypoventilation due to her obesity. Ultimately, this has taken a toll on her cardiovascular conditions and therefore putting her risk for further complications. The patient understands the risks. She wants to try to use the CPAP, but she just wakes up with the machine off her face. The alternatives at this point are not going to give her the benefits that she needs. Therefore, we will have to continue working with her to tolerate the therapy. She already has a CPAP at home. We will try to get her to continue using it consistently. 2. Chronic obstructive pulmonary disease. 3. Chronic hypercarbic respiratory failure, again secondary to her chronic obstructive pulmonary disease and also could be secondary to her underlying obesity hypoventilation syndrome. 4. Congestive heart failure. 5. Abdominal pain. RECOMMENDATIONS: 1. We will start Ambien at nighttime, so she can have a hypnotic to help her sleep. 2. We will start CPAP therapy. We are going to try her in the hospital to see if she can have it adjusted to her comfort and tailoring medications, so she can tolerate it without being aware that she has it on. In the meantime, continue with her respiratory medications. Continue with her cardioprotective therapy in her diuresis as tolerated. Further recommendations based on forthcoming data. Her wool grower, Dr. Todd, will follow her as an outpatient. Follow up with her compliance and also will follow up with her abnormal findings on the CAT scans including some mosaic pattern and stable pulmonary nodules. Delgado Crum MD MR/MODL / [id number]
[2020-08-15 15:36] VITALS: BP 111/64; PULSE 99; RESP 20; TEMP 36.8; O2SAT 93
[2020-08-15 16:02] LABS: Glucose, Whole Blood 223 mg/dL (60-115)
[2020-08-15] MEDS: 0.9 % Sodium Chloride Flush 3 ML SYRINGE IVFLUSH (17:02)
[2020-08-15 19:20] LABS: Chloride Urine Random < 20.0 mmol/L
[2020-08-15 19:22] VITALS: BP 111/74; PULSE 85; RESP 22; TEMP 36.7; O2SAT 92
[2020-08-15 19:44] LABS: Glucose, Whole Blood 292 mg/dL (60-115)
[2020-08-15] MEDS: Atorvastatin Calcium 10 MG TABLET PO (21:04)
[2020-08-15] MEDS: Zolpidem Tartrate 5 MG TABLET 10 MG PO (21:04)
[2020-08-15] MEDS: Omeprazole 40 MG CAPSULE.DR PO (21:04)
[2020-08-15] MEDS: Montelukast Sodium 10 MG TABLET PO (21:04)
[2020-08-16] VITALS: BP 124/81; PULSE 85; RESP 18; TEMP 36.3; O2SAT 93
[2020-08-16] MEDS: 0.9 % Sodium Chloride Flush 3 ML SYRINGE IVFLUSH ×2 (00:37→09:21)
[2020-08-16] MEDS: Heparin Sodium,Porcine 5,000 UNIT/ML VIAL 5000 UNIT SUBCUT ×2 (00:37→11:57)
[2020-08-16 03:15] VITALS: BP 138/82; PULSE 88; RESP 20; TEMP 36.5; O2SAT 93
[2020-08-16 05:12] VITALS: BMI 48.2
[2020-08-16] MEDS: Fluticasone/Vilanterol 200/25 BLST.W.DEV 1 PUFF INHALE (07:17)
[2020-08-16 07:18] VITALS: PULSE 87; O2SAT 94
[2020-08-16 07:51] VITALS: BP 130/66; PULSE 89; RESP 19; TEMP 36.4; O2SAT 92
[2020-08-16 08:07] LABS: Glucose, Whole Blood 158 mg/dL (60-115)
[2020-08-16 08:33] LABS: Anion Gap 16 (12-20); Blood Urea Nitrogen 31 mg/dL (9-16); Carbon Dioxide 36 mmol/L (22-29); Chloride 93 mmol/L (96-108); Creatinine Clr Calc Pharmacy 67.2; Estimated Glomerular Filt Rate 50; Glucose Random 156 mg/dL (60-115); Potassium 3.7 mmol/L (3.3-5.1); Sodium 141 mmol/L (135-145)
[2020-08-16] MEDS: Insulin Lispro 100 UNIT/ML 3 ML VIAL SUBCUT ×2 (08:35→12:05)
[2020-08-16] MEDS: Potassium Chloride ER 20 MEQ TAB.ER.PRT 40 MEQ PO (08:37)
[2020-08-16] MEDS: Gabapentin 100 MG CAPSULE PO (08:39)
[2020-08-16] MEDS: Magnesium Oxide 400 MG TABLET PO (08:39)
[2020-08-16] MEDS: busPIRone HCl 5 MG TABLET PO (08:39)
[2020-08-16] MEDS: Insulin Glargine,Hum.rec.anlog 100 UNIT/ML 10 ML VIAL 8 UNIT SUBCUT (08:50)
--- NOTE | 2020-08-16 09:21 | P.PNNP_ITS ---
Subjective Subjective Date of Service: 08/18/20 Interval history: seen and examined this AM Feels better Physical Exam Vital Signs: Vital Signs: Last Vital Signs Temp 97.6 F 08/16/20 07:51 Pulse 89 08/16/20 07:51 Resp 19 08/16/20 07:51 BP 130/66 08/16/20 07:51 Pulse Ox 92 08/16/20 07:51 Body Mass Index 48.2 Const: General: awake Neck: Neck: Yes supple Resp: Effort & Inspection: normal respiratory effort Cardio: Heart sounds: no murmurs and no rubs GI: Inspection: Yes obesity Auscultation: normal bowel sounds Skin: General skin exam: dry skin Neuro: Motor exam (neuro): No Asterixis during motor activity present Objective Data Labs CBC & Chem 7: 08/15/20 05:34 08/16/20 07:49 Labs: Laboratory Results - last 24 hr 08/15/20 08/15/20 08/15/20 10:06 11:40 13:42 Sodium 142 Potassium Chloride Carbon Dioxide Anion Gap BUN Creatinine Estim Creat Clear Calc Estimated GFR POC Glucose 263 H Random Glucose Calcium Ur Random Chloride < 20.0 Urine Creatinine 08/15/20 08/15/20 08/15/20 13:42 15:43 19:25 Sodium Potassium Chloride Carbon Dioxide Anion Gap BUN Creatinine Estim Creat Clear Calc Estimated GFR POC Glucose 223 H 292 H Random Glucose Calcium Ur Random Chloride Urine Creatinine 110.16 08/16/20 08/16/20 07:49 07:53 Sodium 141 Potassium 3.7 Chloride 93 L Carbon Dioxide 36 H Anion Gap 16 BUN 31 H Creatinine 1.12 Estim Creat Clear Calc 67.2 Estimated GFR 50 POC Glucose 158 H Random Glucose 156 H Calcium 9.0 Ur Random Chloride Urine Creatinine Assessment & Plan Assessment and plan (1) Hypokalemia: Status: Acute (2) BABAK (acute kidney injury): Status: Acute Assessment and Plan: Due to hypoperfusion Hold diuretics Expect renal recovery Time Spent With Patient Time: Total time spent is greater than 50% in coordination of care (as do cumented) at patient's floor/unit and/or counseling patient:
[2020-08-16] MEDS: Acetaminophen 325 MG TABLET 650 MG PO (09:26)
--- NOTE | 2020-08-16 09:36 | PM.PNPUL ---
Subjective Subjective Date of Service: 08/16/20 Interval history: The patient was seen on exam. She did try the fullface mask last night and then she used the Ambien. She was able to tolerate the machine a little bit about an hour so. I did adjust the machine to decrease the minimum pressure to 4 in the maximum pressure to 12. Objective Data Labs CBC & Chem 7: 08/15/20 05:34 08/16/20 07:49 Labs: Laboratory Results - last 24 hr 08/15/20 08/15/20 08/15/20 10:06 11:40 13:42 Sodium 142 Potassium Chloride Carbon Dioxide Anion Gap BUN Creatinine Estim Creat Clear Calc Estimated GFR POC Glucose 263 H Random Glucose Calcium Ur Random Chloride < 20.0 Urine Creatinine 08/15/20 08/15/20 08/15/20 13:42 15:43 19:25 Sodium Potassium Chloride Carbon Dioxide Anion Gap BUN Creatinine Estim Creat Clear Calc Estimated GFR POC Glucose 223 H 292 H Random Glucose Calcium Ur Random Chloride Urine Creatinine 110.16 08/16/20 08/16/20 07:49 07:53 Sodium 141 Potassium 3.7 Chloride 93 L Carbon Dioxide 36 H Anion Gap 16 BUN 31 H Creatinine 1.12 Estim Creat Clear Calc 67.2 Estimated GFR 50 POC Glucose 158 H Random Glucose 156 H Calcium 9.0 Ur Random Chloride Urine Creatinine Review of Systems Constitutional: Denies night sweats Denies change in voice, Denies mouth pain, Reports nasal congestion and Reports nasal discharge Cardiovascular: Denies chest pain and Reports dyspnea on exertion Respiratory: Reports cough and Reports dyspnea on exertion Gastrointestinal: Denies abdominal pain Musculoskeletal: Denies no additional musculoskeletal complaints Physical Exam Vital Signs: Vital Signs: Last Vital Signs Temp 97.6 F 08/16/20 07:51 Pulse 89 08/16/20 07:51 Resp 19 08/16/20 07:51 BP 130/66 08/16/20 07:51 Pulse Ox 92 08/16/20 07:51 Body Mass Index 48.2 Const: General: alert Neck: Neck: Yes normal visual inspection, Yes full ROM and Yes no lymphadenopathy Chest: Chest palpation & inspection: normal inspection of the chest Resp: Auscultation: diminished lung sounds Cardio: Rate: regular rate Rhythm: regular rhythm Heart sounds: S1 normal heart sound present and S2 normal heart sound present GI: Palpation (GI): Soft to palpation and nontender Auscultation: normal bowel sounds Assessment and Plan Assessment and plan (1) JACKSON on CPAP: Status: Acute (2) COPD (chronic obstructive pulmonary disease): Status: Acute Assessment and Plan: Continue Ambien at bedtime Should be using the CPAP during the daytime and also at nighttime. Will try to get her a nasal mask so she can not tolerated better. She needs to follow up with Dr. miranda or as an outpatient so we can further adjust her CPAP. She likely benefit from a BiPAP Time Spent With Patient Time: Total time spent is greater than 50% in coordination of care (as documented) at patient's floor/unit and/or counseling patient: Time with patient: 15 - 24 minutes
--- NOTE | 2020-08-16 10:02 | PM.EVENT ---
Event Note Date of Service: 08/16/20 Event Note: Surgery follow up HIDA scan results- visualization of the gallbladder, common bile duct is patent, liver function appears normal, gallbladder emptying and ejection fraction normal. No evidence of acute cholecystitis on imaging. RUQ pain is improved. She is tolerating a solid diet. Her abd exam benign- soft, NT, negative bravo sign. Her symptoms seem consistent with with biliary dyskinesia. Given the duration and nature of symptoms despite her negative workup, she would likely benefit from CCY in hopes of resolving the abdominal discomfort. This can be performed electively. She can f/u with Dr. Cheng in office upon discharge for scheduling outpatient cholecystectomy. Discussed with patient there is no guarantee that a cholecystectomy will resolve the patient's abdominal pain but there is a high likelihood that the patient would benefit. She understands plan and agrees. Will sign off for now- please reconsult if needed.
[2020-08-16 11:42] LABS: Glucose, Whole Blood 261 mg/dL (60-115)
--- NOTE | 2020-08-16 11:51 | MHC.CM.PN ---
PT DISCHARGING HOME WITH NO SERVICES. PT REPORTS SHE HAS A RIDE
[2020-08-16] MEDS: Morphine Sulfate 2 MG/ML CARTRIDGE 1 MG IVPUSH (11:59)
[2020-08-16 12:00] VITALS: BP 125/83; PULSE 91; RESP 18; TEMP 36.1; O2SAT 92
--- NOTE | 2020-08-16 13:58 | PM.DS ---
DS: Providers Provider Date of Service: 08/16/20 Date of admission: 08/12/20 23:45 Primary care physician: Traci Baxter MD Consults: 08/12/20 23:45 Consult to Cardiology Routine Consulting Provider: Darryl Cruz Reason for consultation: CHF exacerbation Has provider been notified: No 08/13/20 07:40 Consult to Nephrology Routine Consulting Provider: Meño Ross Reason for consultation: babak in chf setting Has provider been notified: No 08/13/20 17:12 Consult to General Surgery Routine [place]ing [place] [facility] [facility] Reason for consultation: RUQ pain 08/14/20 12:23 Consult to Pulmonology Routine Consulting Provider: Delgado Crum Reason for consultation: JACKSON, unable to tolerate cpap -- ? alternatives DS: Diagnosis Discharge Diagnosis (1) Right heart failure: Status: Acute (2) JACKSON (obstructive sleep apnea): Status: Acute (3) Hypokalemia: Status: Acute (4) COPD (chronic obstructive pulmonary disease): Status: Acute (5) Morbid obesity: Status: Acute (6) Biliary dyskinesia: Status: Acute DS: Medications Discharge Medications Home Medications: Home Medications Medication Instructions Recorded Confirmed albuterol sulfate [Ventolin HFA] 2 puff INHALATION Q4H PRN 05/17/20 08/12/20 montelukast 10 mg tablet 10 mg PO BEDTIME 05/17/20 08/12/20 omeprazole 40 mg capsule,delayed 40 mg PO BEDTIME 05/17/20 08/12/20 release tiotropium bromide 2.5 2 puff INHALATION DAILY 06/07/20 08/12/20 mcg/actuation mist for inhalation Trulicity 1.5 mg SUBCUT QWEEK 08/12/20 08/12/20 atorvastatin 10 mg PO BEDTIME 08/12/20 08/12/20 Previous Rx's Medication Instructions Recorded buspirone 5 mg tablet 5 mg PO BID #60 tab 05/29/20 insulin glargine U-300 conc 300 15 unit SUBCUT BEDTIME 90 Days #9 06/14/20 unit/mL (1.5 mL) subcutaneous pen ml metformin 500 mg tablet,extended 1,000 mg PO BID 90 Days #360 tab 06/14/20 release 24hr budesonide-formoterol HFA 160 2 puff INHALATION BID #10.2 g 07/08/20 mcg-4.5 mcg/actuation aerosol inhaler metolazone 2.5 mg tablet 2.5 mg PO .three times a week #30 07/08/20 tab cholecalciferol (vitamin D3) 125 125 mcg PO DAILY #90 cap 07/30/20 mcg (5,000 unit) capsule vitamin E 400 unit capsule 1 cap PO DAILY #90 cap 08/01/20 furosemide 40 mg PO BID@0900,1800 #120 tab 08/16/20 potassium chloride 40 meq PO BEDTIME #0 tab 08/16/20 DS: Summary Hospital Course Hospital Course: Patient was admitted for fluid overload from heart failure. She was treated with IV diuresis with improvement in her swelling. Unfortunately, she went on to develop contraction alkalosis and so diuretics were held. She will be discharged home and has been instructed to restart Lasix in 3 days from discharge at half of her dose (40mg bid) and to hold off on restarting her metolazone until instructed to do so by Cardiology. She is to have repeat blood work in the next 1-2 weeks. In regards to her right upper quadrant abdominal pain she underwent a HIDA scan which did not have any evidence of acute cholecystitis. General surgery was consulted who felt her symptoms were likely biliary dyskinesia and that she may benefit from an outpatient elective cholecystectomy. She will be referred to general surgery clinic. Lastly, it was felt that her right heart failure was primarily from noncompliance with her CPAP usage. She has been educated and instructed to uses appropriately. Time Spent with Patient Time attestation: Total time spent providing and/or coordinating discharge services: Discharge coordination time: Greater than 30 minutes Physical Exam Vital Signs: Vital Signs: Last Vital Signs Temp 96.9 F 08/16/20 12:00 Pulse 91 08/16/20 12:00 Resp 18 08/16/20 12:00 BP 125/83 08/16/20 12:00 Pulse Ox 92 08/16/20 12:00 Body Mass Index 48.2 Const: General: cooperative and no acute distress Orientation/consciousness: patient oriented x3 Eyes: General: appearance normal, both eyes and all related structures Resp: Effort & Inspection: normal respiratory effort and able to speak in complete sentences Cardio: Rate: regular rate Rhythm: regular rhythm GI: Palpation (GI): Soft to palpation Auscultation: normal bowel sounds Skin: General skin exam: no rashes or lesions noted Neuro: General: patient oriented x3 Cognition (Neuro): normal cognition Extrem: Other: LE swelling improved General: Yes normal to inspection DS: Data Data Completed and Pending Labs on day of discharge: Laboratory Results - last 24 hr 08/15/20 08/15/20 08/15/20 13:42 13:42 15:43 Sodium Potassium Chloride Carbon Dioxide Anion Gap BUN Creatinine Estim Creat Clear Calc Estimated GFR POC Glucose 223 H Random Glucose Calcium Ur Random Chloride < 20.0 Urine Creatinine 110.16 08/15/20 08/16/20 08/16/20 19:25 07:49 07:53 Sodium 141 Potassium 3.7 Chloride 93 L Carbon Dioxide 36 H Anion Gap 16 BUN 31 H Creatinine 1.12 Estim Creat Clear Calc 67.2 Estimated GFR 50 POC Glucose 292 H 158 H Random Glucose 156 H Calcium 9.0 Ur Random Chloride Urine Creatinine 08/16/20 11:39 Sodium Potassium Chloride Carbon Dioxide Anion Gap BUN Creatinine Estim Creat Clear Calc Estimated GFR POC Glucose 261 H Random Glucose Calcium Ur Random Chloride Urine Creatinine Discharge Plan Discharge Patient Disposition: Home, Self-Care Referrals: Traci Baxter MD [Primary Care Provider] - 1 Week (06/21/2021 12:30pm. Please call and reschedule if you can't keep this appointment.) Crissy Cheng MD [Physician] - 1 Week (06/21/21 12:30. Please call and reschedule if you can't keep this appointment) Discharge Medications: Continued buspirone 5 mg tablet 5 mg PO BID Qty: 60 RF: 2 cholecalciferol (vitamin D3) 125 mcg (5,000 unit) capsule 125 mcg PO DAILY Qty: 90 RF: 3 vitamin E 400 unit capsule 1 cap PO DAILY Qty: 90 RF: 3 albuterol sulfate [Ventolin HFA] 90 mcg/actuation Hfa Aerosol Inhaler 2 puff INHALATION Q4H PRN (Reason: Shortness Of Breath) RF: 0 atorvastatin 10 mg tablet 10 mg PO BEDTIME RF: 0 Trulicity 1.5 mg/0.5 mL pen injector 1.5 mg subcut QWEEK RF: 0 omeprazole 40 mg capsule,delayed release(DR/EC) 40 mg PO BEDTIME RF: 0 montelukast 10 mg tablet 10 mg PO BEDTIME RF: 0 Spiriva Respimat 2.5 mcg/actuation mist 2 puff inhalation DAILY RF: 0 budesonide-formoterol [Symbicort] 160-4.5 mcg/actuation HFA aerosol inhaler 2 puff inhalation BID Qty: 10.2 RF: 6 Toujeo SoloStar U-300 Insulin 300 unit/mL (1.5 mL) insulin pen 15 unit subcut BEDTIME 90 Days Qty: 9 RF: 2 metformin 500 mg tablet extended release 24hr 1,000 mg PO BID 90 Days Qty: 360 RF: 1 Changed furosemide 40 mg tablet 40 mg PO BID@0900,1800 Qty: 120 RF: 5 potassium chloride 20 mEq tablet extended release 40 meq PO BEDTIME Qty: 0 RF: 0 Held metolazone 2.5 mg tablet 2.5 mg PO .three times a week Qty: 30 RF: 3 Hold Instructions: Resume on 08/19/20. Hold until asked to resume by your doctors. Discharge Orders: Discharge Order (Routine); Ordered 08/16/20 Ordered By: Jordan Malcolm Diet: advance to usual diet Activity on Discharge: As tolerated Stand Alone Forms: Patient Portal Discharge page Visit Report Forms: Patient Portal Discharge page Care Plan Goals: To stay healthy and out of the hospital. Health Concerns: BABAK CHF Sleep Apnea RUQ pain Plan of Treatment: BABAK - Do not take Lasix / metolazone until 08/19/2020. On Wednesday start lasix 40mg twice daily. Hold your metolozone until you have been asked to do so by your doctors. CHF - Lasix / Metolozone as above Sleep Apnea - use your CPAP machine RUQ pain -- follow up with Dr. Cheng in 1 week.
== END 2020-08-16 15:00 | disposition home or self-care (01) | DRG 194 ==
LOC: HO.ED 22:49 → HO.EDOVER 23:52 → HO.ISO 08-13 07:10 → HO.IMC 08-13 13:01
PROVIDERS: Internal Medicine; Internal Medicine Hypertension Specialist; Nurse Practitioner Family; Admitting Provider Internal Medicine; Emergency Provider Emergency Medicine; PCP Internal Medicine; Visit Provider Family Medicine
DX: I50.813 Acute on chronic right heart failure (principal); J96.12 Chronic respiratory failure with hypercapnia; N17.9 Acute kidney failure, unspecified; E11.22 Type 2 diabetes mellitus with diabetic chronic kidney disease; N18.30 Chronic kidney disease, stage 3 unspecified; E11.42 Type 2 diabetes mellitus with diabetic polyneuropathy; E83.42 Hypomagnesemia; E87.6 Hypokalemia; G47.33 Obstructive sleep apnea (adult) (pediatric); E66.01 Morbid (severe) obesity due to excess calories; Z68.42 Body mass index [BMI] 45.0-49.9, adult; J44.9 Chronic obstructive pulmonary disease, unspecified; K82.8 Other specified diseases of gallbladder; Z20.822 Contact with and (suspected) exposure to COVID-19; Z91.19 Patient's noncompliance with other medical treatment and regimen; Z99.89 Dependence on other enabling machines and devices; Z79.4 Long term (current) use of insulin; Z79.899 Other long term (current) drug therapy
CPT/HCPCS: 0241U; 36415; 71045; 71250; 76705; 78227; 80048; 80076; 81003; 82436; 82803; 82947; 83690; 83735; 83880; 84133; 84295; 84300; 84484; 85025; 85027; 93005; 94640; 99285; 99291; A9537; J1940; J2270; J2805; J3475

== ENCOUNTER → 2020-08-20 14:07 | Outpatient (BNVA) | payer OTHER, SELFPAY | PROVIDERS: PCP Internal Medicine; Visit Provider Surgery | DX: Z01.818 Encounter for other preprocedural examination (principal); K80.50 Calculus of bile duct without cholangitis or cholecystitis without obstruction | CPT/HCPCS: 99212 ==

== ENCOUNTER → 2020-08-26 13:10 | Outpatient (BNVA) | payer OTHER, SELFPAY | PROVIDERS: PCP Internal Medicine; Visit Provider Internal Medicine | DX: Z01.810 Encounter for preprocedural cardiovascular examination (principal); I50.812 Chronic right heart failure; I27.20 Pulmonary hypertension, unspecified; G47.33 Obstructive sleep apnea (adult) (pediatric) | CPT/HCPCS: 99212 ==

== ENCOUNTER → 2020-09-04 06:07 | Day surgery (SDC) | payer OTHER, SELFPAY ==
[2020-08-29 10:01] VITALS: BMI 47.9
--- NOTE | 2020-08-30 14:01 | P.CONAN_ITS ---
HPI - Anesthesia Eval Consult details Narrative: 60yo F for Cholecystectomy Laparoscopic Per Dr Cruz: Due to right ventricular dysfunction and severe pulmonary hypertension, she is at intermediate to high cardiac risk for the proposed gallbladder surgery. Continue diuretics without any interruption. Discussed with the patient about the cardiac risks and she understands. Case reviewed Dr Tran. Pt will take lasix morning of surgery. Pt cx'd DOS d/t hypoxia (O2 sat = 88%). Needs pulmonary clearance before reschedule in OR. [facility] Active Problems Active Problems: All Active Problems (Updated 08/29/20 @ 10:07 by Melisa Michel) Hypertension (Acute) Morbid obesity (Acute) Biliary dyskinesia (Acute) Adult BMI 45.0-49.9 kg/sq m (Acute) Biliary colic (Acute) Preoperative examination (Acute) Preoperative cardiovascular examination (Acute) Pulmonary hypertension (Acute) Hypermagnesemia (Acute) Nocturnal hypoxemia (Acute) Morbid obesity (Acute) Abnormal dexamethasone suppression test (Acute) Dyslipidemia (Acute) Chronic right heart failure (Acute) Right heart failure (Acute) Sleep apnea (Acute) Past Medical History Medical History (Updated 08/29/20 @ 10:07 by Melisa Michel) Abdominal pain Abnormal dexamethasone suppression test BABAK (acute kidney injury) Anxiety CHF exacerbation Chronic right heart failure COPD (chronic obstructive pulmonary disease) Diabetes type 2, controlled Diabetes type 2, uncontrolled Diabetic nephropathy associated with type 2 diabetes mellitus Dyslipidemia Edema Hypermagnesemia Hypokalemia Hypoxia Morbid obesity Neuropathy Nocturnal hypoxemia JACKSON on CPAP Pulmonary hypertension Right heart failure Sleep apnea Tachycardia Urge incontinence Family History Family History Father Myocardial infarction Diabetes mellitus Mother Pancreatic cancer Maternal Grandfather Diabetes mellitus Maternal Aunt Pancreatic cancer Maternal Uncle AAA (abdominal aortic aneurysm) Brother No problems noted. Sister No problems noted. Sister No problems noted. Sister No problems noted. Son No problems noted. Daughter No problems noted. Daughter No problems noted. Surgical History Surgical History (Updated 08/29/20 @ 09:54 by Melisa Michel) History of carpal tunnel release History of endoscopy Hx of colonoscopy Hx of tubal ligation Social History Social History Household Members: Family Housing: House Alcohol intake: current Alcohol intake frequency: holidays/special occasions only Smoking Status: Former smoker Years Smoked: 33 Substance Use Type: Marijuana service: No Current occupational status: unemployed Meds Allergies Allergy/AdvReac Type Severity Reaction Status Date / Time erythromycin base Allergy Severe GI Verified 09/04/20 06:54 [From E-MYCIN] PAIN-SEVERE carvedilol Allergy Mild upset Verified 09/04/20 06:54 stomach, sweats Home Medications Medication Instructions Recorded Confirmed Last Taken Type albuterol sulfate [Ventolin HFA] 2 puff INHALATION Q4H PRN 05/17/20 08/29/20 Unknown History montelukast 10 mg tablet 10 mg PO BEDTIME 05/17/20 08/29/20 08/11/20 History omeprazole 40 mg capsule,delayed 40 mg PO BEDTIME 05/17/20 08/29/20 09/04/20 05:30 History release tiotropium bromide 2.5 2 puff INHALATION DAILY 06/07/20 08/29/20 09/04/20 05:30 History mcg/actuation mist for inhalation Trulicity 1.5 mg SUBCUT QWEEK 08/12/20 08/29/20 08/05/20 History atorvastatin 10 mg PO BEDTIME 08/12/20 08/29/20 08/11/20 History ibuprofen 800 mg tablet 800 mg PO BID PRN tab 08/20/20 08/29/20 08/21/20 History Exam Exam Date and Time: August 30, 2020 1401 Height,Weight and Vital Signs: Height 5 ft 2 in Weight 118.841 kg Pertinent Lab Results Pertinent Lab Results: Laboratory Tests 08/15/20 08/16/20 05:34 07:49 WBC 7.3 Hgb 13.5 Hct 42.1 Plt Count 251 Sodium 141 Potassium 3.7 Chloride 93 L Carbon Dioxide 36 H BUN 31 H Creatinine 1.12 Narrative Narrative: Echocardiogram-05/2020-LVEF 60-65%; moderately increased right ventricular size with mildly decreased function; right atrium severely dilated; moderate tricuspid regurgitation; severe pulmonary hypertension; small pericardial effusion. Myocardial perfusion imaging-07/2019-no definitive reversible or fixed defects. Recent EKG - Sinus rhythm; 98/Min; right atrial enlargement; incomplete right bundle-branch block; overall similar to prior. Assessment and Plan Assessment Anesthesia Assessment: Chart Reviewed
[2020-08-30 15:35] LABS: INTERNATIONAL NORM RATIO 1.1 (0.9-1.1); Prothrombin Time 13.3 SEC (10.8-13.0)
[2020-08-30 15:37] LABS: Partial Thromboplastin Time 37.2 SEC (24.1-38.0)
[2020-08-30 15:42] LABS: Glucose Urine UA NEG (NEG); Leukocyte Esterase Urine NEG (NEG); Nitrite Urine NEG (NEG); Specific Gravity - Urine 1.015 (1.005-1.025); Urine Blood NEG (NEG); Urine Ketones NEG (NEG); Urine Protein TRACE MG/DL (NEG-TRACE)
[2020-08-30 15:45] LABS: Appearance Urine HAZY; Color Urine YELLOW
[2020-08-30 15:57] LABS: Anion Gap 20 (12-20); Blood Urea Nitrogen 27 mg/dL (9-16); Calcium 8.6 mg/dL (8.4-10.2); Carbon Dioxide 30 mmol/L (22-29); Chloride 95 mmol/L (96-108); Creatinine Clr Calc Pharmacy 70.8; Estimated Glomerular Filt Rate 53; Glucose Random 195 mg/dL (60-115); Potassium 3.9 mmol/L (3.3-5.1); Sodium 141 mmol/L (135-145)
--- NOTE | 2020-09-03 16:46 | MHC.SHP ---
Pre-Procedural Eval Section B Chief Complaint: biliary colic Allergies: Allergies Allergy/AdvReac Type Severity Reaction Status Date / Time erythromycin base Allergy Severe GI Verified 08/29/20 09:28 [From E-MYCIN] PAIN-SEVERE carvedilol Allergy Unknown upset Verified 08/29/20 09:28 stomach, sweats Plan I have reviewed the history and physical and performed a pertinent physical examination on my patient. No changes have occurred unless specified.
[2020-09-04 06:41] LABS: COVID-19 Test Negative (Negative)
[2020-09-04 06:49] LABS: Glucose, Whole Blood 162 mg/dL (60-115)
[2020-09-04 06:51] VITALS: BP 132/92; PULSE 96; RESP 18; TEMP 36.4; O2SAT 88
[2020-09-04] MEDS: Lactated Ringers 1,000 ML 20 ML IVCONT (07:01)
== END ==
PROVIDERS: PCP Internal Medicine; Visit Provider Surgery
DX: K80.50 Calculus of bile duct without cholangitis or cholecystitis without obstruction (principal); Z20.822 Contact with and (suspected) exposure to COVID-19; Z53.9 Procedure and treatment not carried out, unspecified reason
CPT/HCPCS: 36415; 80048; 81003; 82947; 85610; 85730; 86850; 86900; 86901; 87635; J0131; J2250; J3010

== ENCOUNTER → 2020-09-10 14:32 | Outpatient (BNVA) | payer OTHER, SELFPAY | PROVIDERS: PCP Internal Medicine; Visit Provider Internal Medicine | DX: J44.9 Chronic obstructive pulmonary disease, unspecified (principal); G47.33 Obstructive sleep apnea (adult) (pediatric); G47.34 Idiopathic sleep related nonobstructive alveolar hypoventilation; E66.01 Morbid (severe) obesity due to excess calories; K82.8 Other specified diseases of gallbladder; Z99.89 Dependence on other enabling machines and devices; Z79.51 Long term (current) use of inhaled steroids; Z87.891 Personal history of nicotine dependence | CPT/HCPCS: 99212 ==

== ENCOUNTER 2020-09-28 08:11 | Outpatient (REF) | payer OTHER, SELFPAY ==
[2020-09-30 23:41] LABS: Adrenocorticotropic Hormone <5 pg/mL (6-50)
[2020-10-03 01:01] LABS: Saliva Cortisol 0.08 mcg/dL
[2020-10-03 13:02] LABS: Dexamethasone 417 ng/dL
== END 2020-09-28 08:12 | disposition home or self-care (01) ==
LOC: HO.LAB 08:11
PROVIDERS: PCP Internal Medicine; Visit Provider Internal Medicine Endocrinology, Diabetes & Metabolism
DX: R94.7 Abnormal results of other endocrine function studies (principal)
CPT/HCPCS: 36415; 80299; 82024; 82530; 82533

== ENCOUNTER → 2020-10-08 14:11 | Outpatient (BNVA) | payer OTHER, SELFPAY | PROVIDERS: PCP Internal Medicine; Visit Provider Internal Medicine | DX: E66.01 Morbid (severe) obesity due to excess calories (principal); K82.8 Other specified diseases of gallbladder; G47.33 Obstructive sleep apnea (adult) (pediatric); J44.9 Chronic obstructive pulmonary disease, unspecified; I27.20 Pulmonary hypertension, unspecified; Z99.89 Dependence on other enabling machines and devices | CPT/HCPCS: 99212 ==

== ENCOUNTER 2020-10-15 08:37 | Outpatient (REF) | payer OTHER, SELFPAY ==
[2020-10-15 09:24] LABS: Blood Urea Nitrogen 25 mg/dL (9-16); Estimated Glomerular Filt Rate 50
[2020-10-17 15:37] LABS: Adrenocorticotropic Hormone 23 pg/mL (6-50)
[2020-10-25 09:17] LABS: Corticosteroid Bind Globulin 2.3 mg/dL (1.9-4.5)
== END 2020-10-15 08:38 | disposition home or self-care (01) ==
LOC: HO.LAB 08:37
PROVIDERS: PCP Internal Medicine; Visit Provider Internal Medicine Endocrinology, Diabetes & Metabolism
DX: R94.7 Abnormal results of other endocrine function studies (principal)
CPT/HCPCS: 36415; 82024; 82533; 82565; 84449; 84520

== ENCOUNTER 2020-11-06 14:14 | Inpatient (IN) | payer OTHER, SELFPAY ==
[2020-10-31 11:01] VITALS: BMI 47.0
--- NOTE | 2020-11-05 | ECG_ITS ---
Test Reason : PEOP Blood Pressure : / mmHG Vent. Rate : 104 BPM Atrial Rate : 104 BPM P-R Int : 178 ms QRS Dur : 104 ms QT Int : 348 ms P-R-T Axes : 068 111 038 degrees QTc Int : 457 ms Sinus tachycardia with Premature atrial complexes with Aberrant conduction Biatrial enlargement Right axis deviation Right ventricular hypertrophy Septal infarct (cited on or before 06-NOV-2020) ST & T wave abnormality, consider anterolateral ischemia Abnormal ECG When compared with ECG of 12-AUG-2020 22:41, Aberrant conduction is now Present Serial changes of Septal infarct Present Referred By: Crissy Cheng Electronically Signed By:
--- NOTE | 2020-11-05 11:09 | P.CONAN_ITS ---
Documented by User: Nati Dentney 11/05/20 11:12 HPI - Anesthesia Eval Consult details Narrative: 60yo F for Cholecystectomy Laparoscopic Per Dr Cruz: Due to right ventricular dysfunction and severe pulmonary hypertension, she is at intermediate to high cardiac risk for the proposed gallbladder surgery. Continue diuretics without any interruption. Discussed with the patient about the cardiac risks and she understands. Case reviewed Dr Tran. Pt will take lasix morning of surgery. Pt cx'd 09/04/20 d/t hypoxia (O2 sat = 88%). Needs pulmonary clearance before reschedule in OR. Per pulmonary, high risk surgical patient, but improving with CPAP compliance, no need for O2 QHS. Reviewed with Dr Tran. [facility] Active Problems Active Problems: All Active Problems (Updated 10/08/20 @ 16:31 by Shonna Todd MD) COPD (chronic obstructive pulmonary disease) (Acute) Obstructive sleep apnea on CPAP (Acute) Hypertension (Acute) Morbid obesity (Acute) Biliary dyskinesia (Acute) Adult BMI 45.0-49.9 kg/sq m (Acute) Biliary colic (Acute) Preoperative examination (Acute) Preoperative cardiovascular examination (Acute) Pulmonary hypertension (Acute) Hypermagnesemia (Acute) Nocturnal hypoxemia (Acute) Morbid obesity (Acute) Abnormal dexamethasone suppression test (Acute) Dyslipidemia (Acute) Chronic right heart failure (Acute) Right heart failure (Acute) Sleep apnea (Acute) Past Medical History Medical History Abdominal pain Abnormal dexamethasone suppression test BABAK (acute kidney injury) Anxiety CHF exacerbation Chronic right heart failure COPD (chronic obstructive pulmonary disease) COPD (chronic obstructive pulmonary disease) Diabetes type 2, controlled Diabetes type 2, uncontrolled Diabetic nephropathy associated with type 2 diabetes mellitus Dyslipidemia Edema Hypermagnesemia Hypokalemia Hypoxia Morbid obesity Neuropathy Nocturnal hypoxemia Obstructive sleep apnea on CPAP JACKSON on CPAP Pulmonary hypertension Right heart failure Sleep apnea Tachycardia Urge incontinence Family History Family History Father Myocardial infarction Diabetes mellitus Mother Pancreatic cancer Maternal Grandfather Diabetes mellitus Maternal Aunt Pancreatic cancer Maternal Uncle AAA (abdominal aortic aneurysm) Brother No problems noted. Sister No problems noted. Sister No problems noted. Sister No problems noted. Son No problems noted. Daughter No problems noted. Daughter No problems noted. Surgical History Surgical History History of carpal tunnel release History of endoscopy Hx of colonoscopy Hx of tubal ligation Social History Social History Household Members: Family Housing: House Are you a primary wound care technician to a significant other at home: No Do you presently have visiting nurse or other home services: No Alcohol intake: current Alcohol intake frequency: holidays/special occasions only Smoking Status: Former smoker Years Smoked: 33 Smoked in Last 30 Days: No Smoking Quit Date: 2019 Use of substances other than those prescribed or required for medical reasons: Yes Substance Use Type: Marijuana Substance Use Type Other:: Uses at Bedtime - helps with Anxiety &/or Pain Substance Use Frequency: Weekly Have you been hit, kicked, punched, or otherwise hurt by someone within the past year? If so, by whom?: No Are you DNR?: No Advance Directives: No Advance Directives Information Provided: No Advance Directives on File: No Recently lost weight without trying: No Eating poorly because of decreased appetite: No Nutrition Risks: No Nutritional Risk Patient : No service: No Current occupational status: unemployed Meds Allergies Allergy/AdvReac Type Severity Reaction Status Date / Time erythromycin base Allergy Severe GI Verified 10/08/20 14:30 [From E-MYCIN] PAIN-SEVERE carvedilol Allergy Mild upset Verified 10/08/20 14:30 stomach, sweats Home Medications Medication Instructions Recorded Confirmed Last Taken Type albuterol sulfate [Ventolin HFA] 2 puff INHALATION Q4H PRN 05/17/20 10/31/20 Unknown History montelukast 10 mg tablet 10 mg PO BEDTIME 05/17/20 10/31/20 08/11/20 History omeprazole 40 mg capsule,delayed 40 mg PO BEDTIME 05/17/20 10/31/20 09/04/20 05:30 History release tiotropium bromide 2.5 2 puff INHALATION DAILY 06/07/20 10/31/20 09/04/20 05:30 History mcg/actuation mist for inhalation Trulicity 1.5 mg SUBCUT QWEEK 08/12/20 10/31/20 08/05/20 History atorvastatin 10 mg PO BEDTIME 08/12/20 10/31/20 08/11/20 History ibuprofen 800 mg tablet 800 mg PO BID PRN tab 08/20/20 10/31/20 08/21/20 History albuterol sulfate mg INHALATION Q4-6H PRN 09/10/20 10/08/20 11/06/20 08:25 History budesonide-formoterol [Symbicort] 2 puff INHALATION BID 11/06/20 11/06/20 11/06/20 History Exam Exam Date and Time: November 05, 2020 1109 Height,Weight and Vital Signs: Height 5 ft 2 in Weight 116.573 kg Pertinent Lab Results Pertinent Lab Results: Laboratory Tests 08/15/20 08/30/20 10/15/20 05:34 14:37 08:59 WBC 7.3 Hgb 13.5 Hct 42.1 Plt Count 251 Sodium 141 Potassium 3.9 Chloride 95 L Carbon Dioxide 30 H BUN 25 H Creatinine 1.11 Narrative Narrative: Echocardiogram-05/2020-LVEF 60-65%; moderately increased right ventricular size with mildly decreased function; right atrium severely dilated; moderate tricuspid regurgitation; severe pulmonary hypertension; small pericardial effusion. Myocardial perfusion imaging-07/2019-no definitive reversible or fixed defects. Assessment and Plan Assessment Anesthesia Assessment: Chart Reviewed Documented by User: Oma Lund 11/06/20 12:10 [facility] Past Medical History Medical History Abdominal pain Abnormal dexamethasone suppression test BABAK (acute kidney injury) Anxiety CHF exacerbation Chronic right heart failure COPD (chronic obstructive pulmonary disease) COPD (chronic obstructive pulmonary disease) Diabetes type 2, controlled Diabetes type 2, uncontrolled Diabetic nephropathy associated with type 2 diabetes mellitus Dyslipidemia Edema Hypermagnesemia Hypokalemia Hypoxia Morbid obesity Neuropathy Nocturnal hypoxemia Obstructive sleep apnea on CPAP JACKSON on CPAP Pulmonary hypertension Right heart failure Sleep apnea Tachycardia Urge incontinence Family History Family History Father Myocardial infarction Diabetes mellitus Mother Pancreatic cancer Maternal Grandfather Diabetes mellitus Maternal Aunt Pancreatic cancer Maternal Uncle AAA (abdominal aortic aneurysm) Brother No problems noted. Sister No problems noted. Sister No problems noted. Sister No problems noted. Son No problems noted. Daughter No problems noted. Daughter No problems noted. Family history of problems with anesthesia: No Surgical History Surgical History History of carpal tunnel release History of endoscopy Hx of colonoscopy Hx of tubal ligation History of Problems with Anesthesia: No (Patient denies any history of problems with anesthesia or intubation) Social History Social History Household Members: Family Housing: House Are you a primary wound care technician to a significant other at home: No Do you presently have visiting nurse or other home services: No Alcohol intake: current Alcohol intake frequency: holidays/special occasions on ly Smoking Status: Former smoker Years Smoked: 33 Smoked in Last 30 Days: No Smoking Quit Date: 2019 Use of substances other than those prescribed or required for medical reasons: Yes Substance Use Type: Marijuana Substance Use Type Other:: Uses at Bedtime - helps with Anxiety &/or Pain Substance Use Frequency: Weekly Have you been hit, kicked, punched, or otherwise hurt by someone within the past year? If so, by whom?: No Are you DNR?: No Advance Directives: No Advance Directives Information Provided: No Advance Directives on File: No Recently lost weight without trying: No Eating poorly because of decreased appetite: No Nutrition Risks: No Nutritional Risk Patient : No service: No Current occupational status: unemployed Meds Allergies Allergy/AdvReac Type Severity Reaction Status Date / Time erythromycin base Allergy Severe GI Verified 10/08/20 14:30 [From E-MYCIN] PAIN-SEVERE carvedilol Allergy Mild upset Verified 10/08/20 14:30 stomach, sweats Home Medications Medication Instructions Recorded Confirmed Last Taken Type albuterol sulfate [Ventolin HFA] 2 puff INHALATION Q4H PRN 05/17/20 10/31/20 Unknown History montelukast 10 mg tablet 10 mg PO BEDTIME 05/17/20 10/31/20 08/11/20 History omeprazole 40 mg capsule,delayed 40 mg PO BEDTIME 05/17/20 10/31/20 09/04/20 05:30 History release tiotropium bromide 2.5 2 puff INHALATION DAILY 06/07/20 10/31/20 09/04/20 05:30 History mcg/actuation mist for inhalation Trulicity 1.5 mg SUBCUT QWEEK 08/12/20 10/31/20 08/05/20 History atorvastatin 10 mg PO BEDTIME 08/12/20 10/31/20 08/11/20 History ibuprofen 800 mg tablet 800 mg PO BID PRN tab 08/20/20 10/31/20 08/21/20 History albuterol sulfate mg INHALATION Q4-6H PRN 09/10/20 10/08/20 11/06/20 08:25 History budesonide-formoterol [Symbicort] 2 puff INHALATION BID 11/06/20 11/06/20 11/06/20 History Exam Height,Weight and Vital Signs: Vital Signs Temp Pulse Resp BP Pulse Ox 97.2 F 100 24 H 137/79 88 L 11/06/20 08:37 11/06/20 08:37 11/06/20 08:37 11/06/20 08:37 11/06/20 08:37 Pertinent Lab Results Pertinent Lab Results: Lab Results 11/06/20 11/06/20 11/06/20 Range/Units 07:59 08:09 08:13 POC Glucose 166 H (60-115) mg/dL COVID-19 (TIM) Negative (Negative) COVID-19 Clin Com See Note Blood Type A Positive Antibody Screen NEGATIVE Narrative Narrative: Patient was here in September for same procedure. Cancelled due to O2 sats of 88. Was seen by logistics director and milk inspector. Both agree that patient is high risk for surgery. Recommendations noted. Patient was started on CPAP as her respiratory issues with JACKSON was thought to be partially related to her RV dysfunction and hypoxia- Cor pulmonale. O2 sats pre-op 86-88% On 2L NC, sats up to 94%. RR high 20s to 30s, C02 low 30s Airway Mallampati Class: III TM Dist: <=3cm Neck ROM: Full Heart: RRR Lungs: CTAB Assessment and Plan Assessment Anesthesia Assessment: Anesthesia Plan Discussed (Long discussion with patient about risks of anesthesia and how she would like to proceed knowing the risks. We discussed possible post-op intubation and ICU admission. We will evaluate her breathing post-op and make a decision as to extubation at that point. Patient wishes to proceed. ) and Chart Reviewed Final Anesthetic Review NPO: Yes ASA Class: IV Final Preanesthetic Review: No Changes in Pt Med Stat, Meds/Allgs Chart Reviewed, Consent Obtained/Reviewed and Anes Risks/Benef Reviewed Patient Risk: High Procedure Risk: Intermediate Assessment/Block/Sedation in SS: Assess/Block/Sedation-SS Anesthetic Plan Anesthetic Plan: GA (Discussed case with ICU doc and Dr Bañuelos. Patient will go to ICU if needed. Otherwise,patient should be observed overnight in the hospital.) and Agree w/ Assess. and Plan Disposition: Inp. Admit - IMC
--- NOTE | 2020-11-05 15:53 | MHC.SHP ---
Pre-Procedural Eval Section B Chief Complaint: cholecystitis Allergies: Allergies Allergy/AdvReac Type Severity Reaction Status Date / Time erythromycin base Allergy Severe GI Verified 10/08/20 14:30 [From E-MYCIN] PAIN-SEVERE carvedilol Allergy Mild upset Verified 10/08/20 14:30 stomach, sweats Plan I have reviewed the history and physical and performed a pertinent physical examination on my patient. No changes have occurred unless specified.
[2020-11-06] VITALS (20 sets, daily range): BP systolic 108–139; BP diastolic 56–89; PULSE 89–107; RESP 14–24; TEMP 36–36.3; O2SAT 86–96
[2020-11-06 08:12] LABS: Glucose, Whole Blood 166 mg/dL (60-115)
[2020-11-06 08:24] LABS: COVID-19 Test Negative (Negative)
--- NOTE | 2020-11-06 08:27 | PC.NURSE ---
patient took two puffs of her albuterol by the bedside ok per md sosa. pre-op ekg being performed.
--- NOTE | 2020-11-06 09:00 | PC.NURSE ---
md sosa by bedside aware of her vital signs. testing her end tidal co2.
--- NOTE | 2020-11-06 09:16 | PC.NURSE ---
patient has agreed to proceed with her surgery due to being a high risk patient. she is aware that she is a high risk and that she may have to extubated in icu. patient is aware and accepts the risk for her procedure today.
[2020-11-06] MEDS: ondansetron HCL 4 MG/2 ML VIAL IVPUSH (12:15)
--- NOTE | 2020-11-06 12:22 | PM.OP ---
Brief Operative Note Date of Service: 11/06/20 Pre-op diagnosis: Biliary dyskinesia Post-op diagnosis: same Procedure: Laparoscopic cholecystectomy Surgeon: Crissy Cheng MD Anesthesia: GETA Was an Patient Flow Coordinator used for this Procedure?: Yes Patient Flow Coordinator: Sirena Austin Estimated blood loss (mL): 5 Pathology: other (Gallbladder) Condition: stable Disposition: PACU
--- NOTE | 2020-11-06 12:23 | W.PM.OPN ---
Operative Note Operative Note Date of Service: 11/06/20 Narrative: Patient was brought into the operating room, placed on operating table in the supine position. Normal DVT prophylaxis was instituted. Patient received 2 g of IV cefotetan preoperatively. General anesthesia was induced. The abdomen was prepped and draped in the normal sterile fashion using ChloraPrep. A safety time-out was performed. Next a mixture of 1% lidocaine with epinephrine and 0.25% Marcaine plain was used to anesthetize the planned incision site in the infraumbilical position. A 11. Scalpel was used to make a 2 cm supraumbilical longitudinal surgical incision through which the subcutaneous tissues were dissected down to level the fascia. The fascia was grasped did between 2 Judah clamps and entered using a 11. Scalpel for about 1 cm vertically. An 0 Vicryl suture was placed on either side of the open fascia. A finger was used to bluntly gain access to the intra-abdominal cavity. A 12 mm Fitzptarick trocar was introduced into the abdomen and secured to the abdominal wall using sutures on the fascia. The abdomen was insufflated to 15 mmHg. Next a 5 mm 30 degree laparoscoped was introduced into the abdomen and used to survey the abdominal cavity which was normal. Next 3 additional 5 mm ports were placed. One port was placed in the epigastrium to the right of the falciform ligament, 2 ports were placed in the right upper quadrant 1 laterally and 1 more medially. The patient was placed in reverse Trendelenburg and left side tilted down. A grasper was placed through the right lateral port and used to grasp the fundus of the gallbladder and retracted it cephalad. Another grasper was used to grasp the infundibulum of the gallbladder retracted inferior and laterally. We cleared the cystic artery and cystic duct circumferentially and the distal 1/3 of the gallbladder with the gallbladder fossa. This gave us the critical view of safety. We then placed 3 clips on the cystic duct distal to the gallbladder 1 clip on the cystic duct proximal to the gallbladder. We placed 1 clip on the cystic artery proximal to the gallbladder and 2 clips on the cystic artery distal to the gallbladder and transected both structures in between clips. We took the remainder of the gallbladder off the gallbladder fossa and placed in Endo-Catch bag and removed it from the abdomen. We then evaluated the gallbladder fossa it was hemostatic there was no evidence of any bile draining or any bleeding noted. The clips were in place on the cystic artery and cystic duct stumps. We then removed the 5 mm ports under direct vision there was no bleeding noted from these port sites. We desufflated the abdomen through the last remaining port and removed the last port and laparoscope. We reapproximated the fascial defect at the supraumbilical incision using 2 [id number] 0 Prolene suture and tied the original fascial sutures over that closure. There was no residual fascial defect. We placed an additional amount of local anesthetic into the fascia closure site. We closed all skin incisions with a 4 Monocryl subcuticular stitch. We cleaned and dried the skin and applied Dermabond skin glue to all skin incisions. All counts were correct at the end the case there were no complications. The patient was awake and in stable condition prior to extubation and transfer to the recovery room.
[2020-11-06] MEDS: Ketorolac Tromethamine 15 MG/ML VIAL IVPUSH (12:25)
[2020-11-06] MEDS: fentaNYL citrate/PF 100 MCG/2 ML VIAL 25 MCG IVPUSH ×2 (12:30→12:45)
--- NOTE | 2020-11-06 12:31 | P.PNGS_ITS ---
Subjective Subjective Date of Service: 11/08/20 <Sirena Austin PA-C - Last Filed: 11/08/20 12:20> 11/07/20 <Crissy Cheng MD - Last Filed: 11/07/20 09:29> Interval history: POD #1: Patient is doing well. Has been ambulating, using the incentive spirometer, and tolerating regular diet liquids. No nausea or abdominal pain. Has some mild incisional pain. Medicine consulted yesterday for management of multiple comorbidities. <Sirena Austin PA-C - Last Filed: 11/08/20 12:20> Patient doing well on postoperative day 1. Status post laparoscopic cholecystectomy for biliary dyskinesia treatment. Patient is feeling well. She is tolerating a diabetic diet. Her oxygen saturations have remained over 90% overnight. She denies any shortness of breath greater than her baseline. On physical exam: Abdomen is soft obese nondistended mild appropriate incisional tenderness. Incisions are clean dry intact. Extremities are warm well-perfused without edema or tenderness. Assessment and plan: This is a 60-year-old lady doing well on postoperative day 1. Status post laparoscopic cholecystectomy. Patient will be discharged home and follow-up with me again in 2 weeks postoperatively. <Crissy Cheng MD - Last Filed: 11/07/20 09:29> Physical Exam Vital Signs: Vital Signs: Last Vital Signs Temp 97.1 F 11/06/20 11:35 Pulse 107 H 11/06/20 11:35 Resp 14 11/06/20 11:35 BP 138/89 11/06/20 11:35 Pulse Ox 90 L 11/06/20 11:35 Body Mass Index 47.0 <Sirena Austin PA-C - Last Filed: 11/08/20 12:20> Const: General: cooperative, comfortable, no acute distress, alert and awake <Sirena Austin PA-C - Last Filed: 11/08/20 12:20> Nutritional Appearance: obese <Sirena Austin PA-C - Last Filed: 11/08/20 12:20> GI: Inspection: Yes normal to inspection, Yes incision (normal, slight erythema at site of surgical glue, no tenderness/warmth/drai) and Yes obesity <Sirnea Austin PA-C - Last Filed: 11/08/20 12:20> Extrem: Right lower extremity: lower leg Details: no tenderness; no edema <VIOLET Hinojosa Last Filed: 11/08/20 12:20> Left lower extremity: lower leg Details: no tenderness; no edema <VIOLET Hinojosa Last Filed: 11/08/20 12:20> Progress Note: A&P Assessment and plan (1) COPD (chronic obstructive pulmonary disease): Problem details: SHE HAS MODERATELY SEVERE COPD. FOR THIS SHE WILL CONTINUE TO USE SYMBICORT 160-4.52 PUFFS B.I.D. AND SPIRIVA RESPIMAT 2 INHALATIONS DAILY. USE VENTOLIN INH 2 PUFFS Q 4-6 HOURS ONLY P.R.N.. <VIOLET Hinojosa Last Filed: 11/08/20 12:20> Status: Acute <VIOLET Hinojosa Last Filed: 11/08/20 12:20> (2) Obstructive sleep apnea on CPAP: Problem details: SHE IS A CLASSIC CASE FOR OBSTRUCTIVE SLEEP APNEA WHICH WAS DOCUMENTED BY HOME SLEEP STUDY. PATIENT IS MORE SERIOUS AND NOW USING THE CPAP ON A REGULAR BASES. SHE ADMITS THAT THE USE OF CPAP IS HELPING HER SLEEP, AND ALSO GIVING HER MORE ENERGY. OVERNIGHT OXIMETRY RECORDING HAD SHOWN THAT SHE DOES NOT NEED OXYGEN WHILE USING CPAP. SHE IS WELL MOTIVATED TO KEEP ON USING THE CPAP. REGULARLY. IF AND WHEN THE GALLBLADDER SURGERY IS UNDERTAKEN, SHE SHOULD CONTINUE DUE TO USE HER CPAP POSTOPERATIVELY AND AT NIGHT. <Sirena Austin PA-C - Last Filed: 11/08/20 12:20> Status: Acute <VIOLET Hinojosa Last Filed: 11/08/20 12:20> (3) Morbid obesity: Problem details: SHE HAS CHRONIC, MORBID OBESITY, SHE IS PARTICIPATING IN WT MANAGEMENT PROGRAM . <VIOLET Hinojosa Last Filed: 11/08/20 12:20> Status: Acute <VIOLET Hinojosa Last Filed: 11/08/20 12:20> (4) Biliary dyskinesia: Problem details: PATIENT IS BEING CONSIDERED FOR CHOLECYSTECTOMY. FROM PULMONARY POINT OF VIEW SHE IS A VERY HIGH RISK SURGICAL PATIENT. THE PROS AND CONS OF SURGICAL PROCEDURE NEED TO BE CONSIDERED IN VIEW OF HER HIGH RISK FOR SURGERY . <Sirena Austin PA-C - Last Filed: 11/08/20 12:20> Status: Acute <VIOLET Hinojosa Last Filed: 11/08/20 12:20> (5) Pulmonary hypertension: Problem details: I EXPECT THAT WITH PROPER AND CONTINUED USE OF CPAP, HER PULMONARY HYPERTENSION WILL IMPROVE. <Sirena Austin PA-C - Last Filed: 11/08/20 12:20> Status: Acute <Sirena Austin PA-C - Last Filed: 11/08/20 12:20> (6) Nocturnal hypoxemia: Problem details: HER NOCTURNAL HYPOXEMIA HAS BEEN SECONDARY TO NONE TREATED JACKSON, AND ALSO BEING CONTRIBUTED BY SAYS COPD/ HYPOVENTILATION SYNDROME. WE WILL REQUEST AN OVERNIGHT OXIMETRY RECORDING, AND THEN DECIDE IF SHE SHOULD BE ON OXYGEN SUPPLEMENT AT NIGHT ALONG WITH C PAP. <Sirena Austin PA-C - Last Filed: 11/08/20 12:20> Status: Acute <Sirena Austin PA-C - Last Filed: 11/08/20 12:20> (7) Sleep apnea: Status: Acute <Sriena Austin PA-C - Last Filed: 11/08/20 12:20> (8) Status post laparoscopic cholecystectomy: Status: Acute <Sirena Austin PA-C - Last Filed: 11/08/20 12:20> Assessment and Plan: Lady with a BMI of 47 and multiple respiratory conditions who is 1 day status post uneventful laparoscopic cholecystectomy. Was admitted to [facility] a medicine consult for overnight watch. Is tolerating regular diet and labs WML. Discharged home. All instructions given in writing. Will follow up in off in 2 weeks. <Sirena Austin PA-C - Last Filed: 11/08/20 12:20> Fall Risk Details Current Medications: Current Medications Generic Name Dose Route Start Last Admin Trade Name Freq PRN Reason Stop Dose Admin Fentanyl 25 mcg 11/06/20 11:48 Fentanyl Citrate/Pf 100 Mcg/2 Ml Vial IVPUSH Q5M PRN Pain, Moderate (Pain Scale 4-6 Lactated Ringer's 1,000 mls @ 50 mls/hr 11/06/20 10:30 Lr IV .Q20H COUNT INCLUDES THE [facility] Cefotetan Disodium 2 gm/ 50 mls @ 100 mls/hr 11/06/20 22:15 Sodium Chloride IV POSTOP@2215 COUNT INCLUDES THE [facility] Ketorolac Tromethamine 15 mg 11/06/20 11:50 Ketorolac Tromethamine 15 Mg/Ml Vial IVPUSH ONCE PRN Pain, Moderate (Pain Scale 4-6 Ondansetron HCl 4 mg 11/06/20 11:50 11/06/20 12:15 Ondansetron Hcl 4 Mg/2 Ml Vial IVPUSH 4 mg ONCE PRN Administration Nausea and Vomiting <Sirena Austin PA-C - Last Filed: 11/08/20 12:20> Time Spent With Patient Time: Total time spent is greater than 50% in coordination of care (as documented) at patient's floor/unit and/or counseling patient: <Sirena Austin PA-C - Last Filed: 11/08/20 12:20> Time with patient: less than 15 minutes <Crissy Cheng MD - Last Filed: 11/07/20 09:29>
--- NOTE | 2020-11-06 12:35 | PM.DS ---
DS: Providers Provider Date of Service: 11/08/20 Primary care physician: Traci Baxter MD Consults: 11/06/20 12:27 Consult to Internal Medicine Stat Consulting Provider: Morgan Gold Reason for consultation: s/p lap sue with pulmonary HTN and T2DM, low 02 Has provider been notified: Yes DS: Diagnosis Discharge Diagnosis (1) COPD (chronic obstructive pulmonary disease): Status: Acute Problem details: SHE HAS MODERATELY SEVERE COPD. FOR THIS SHE WILL CONTINUE TO USE SYMBICORT 160-4.52 PUFFS B.I.D. AND SPIRIVA RESPIMAT 2 INHALATIONS DAILY. USE VENTOLIN INH 2 PUFFS Q 4-6 HOURS ONLY P.R.N.. (2) Obstructive sleep apnea on CPAP: Status: Acute Problem details: SHE IS A CLASSIC CASE FOR OBSTRUCTIVE SLEEP APNEA WHICH WAS DOCUMENTED BY HOME SLEEP STUDY. PATIENT IS MORE SERIOUS AND NOW USING THE CPAP ON A REGULAR BASES. SHE ADMITS THAT THE USE OF CPAP IS HELPING HER SLEEP, AND ALSO GIVING HER MORE ENERGY. OVERNIGHT OXIMETRY RECORDING HAD SHOWN THAT SHE DOES NOT NEED OXYGEN WHILE USING CPAP. SHE IS WELL MOTIVATED TO KEEP ON USING THE CPAP. REGULARLY. IF AND WHEN THE GALLBLADDER SURGERY IS UNDERTAKEN, SHE SHOULD CONTINUE DUE TO USE HER CPAP POSTOPERATIVELY AND AT NIGHT. (3) Morbid obesity: Status: Acute Problem details: SHE HAS CHRONIC, MORBID OBESITY, SHE IS PARTICIPATING IN WT MANAGEMENT PROGRAM . (4) Biliary dyskinesia: Status: Acute Problem details: PATIENT IS BEING CONSIDERED FOR CHOLECYSTECTOMY. FROM PULMONARY POINT OF VIEW SHE IS A VERY HIGH RISK SURGICAL PATIENT. THE PROS AND CONS OF SURGICAL PROCEDURE NEED TO BE CONSIDERED IN VIEW OF HER HIGH RISK FOR SURGERY . (5) Pulmonary hypertension: Status: Acute Problem details: I EXPECT THAT WITH PROPER AND CONTINUED USE OF CPAP, HER PULMONARY HYPERTENSION WILL IMPROVE. (6) Nocturnal hypoxemia: Status: Acute Problem details: HER NOCTURNAL HYPOXEMIA HAS BEEN SECONDARY TO NONE TREATED [place], AND ALSO BEING CONTRIBUTED BY SAYS COPD/ HYPOVENTILATION SYNDROME. WE WILL REQUEST AN OVERNIGHT OXIMETRY RECORDING, AND THEN DECIDE IF SHE SHOULD BE ON OXYGEN SUPPLEMENT AT NIGHT ALONG WITH C PAP. (7) Sleep apnea: Status: Acute (8) Status post laparoscopic cholecystectomy: Status: Acute DS: Medications Discharge Medications Home Medications: Home Medications Medication Instructions Recorded Confirmed albuterol sulfate [Ventolin HFA] 2 puff INHALATION Q4H PRN 05/17/20 10/31/20 montelukast 10 mg tablet 10 mg PO BEDTIME 05/17/20 10/31/20 omeprazole 40 mg capsule,delayed 40 mg PO BEDTIME 05/17/20 10/31/20 release tiotropium bromide 2.5 2 puff INHALATION DAILY 06/07/20 10/31/20 mcg/actuation mist for inhalation Trulicity 1.5 mg SUBCUT QWEEK 08/12/20 10/31/20 atorvastatin 10 mg PO BEDTIME 08/12/20 10/31/20 ibuprofen 800 mg tablet 800 mg PO BID PRN tab 08/20/20 10/31/20 albuterol sulfate mg INHALATION Q4-6H PRN 09/10/20 10/08/20 budesonide-formoterol [Symbicort] 2 puff INHALATION BID 11/06/20 11/06/20 Previous Rx's Medication Instructions Recorded insulin glargine U-300 conc 300 15 unit SUBCUT BEDTIME 90 Days #9 06/14/20 unit/mL (1.5 mL) subcutaneous pen ml metformin 500 mg tablet,extended 1,000 mg PO BID 90 Days #360 tab 06/14/20 release 24hr budesonide-formoterol HFA 160 2 puff INHALATION BID #10.2 g 07/08/20 mcg-4.5 mcg/actuation aerosol inhaler cholecalciferol (vitamin D3) 125 125 mcg PO DAILY #90 cap 07/30/20 mcg (5,000 unit) capsule vitamin E 400 unit capsule 1 cap PO DAILY #90 cap 08/01/20 furosemide 40 mg PO BID@0900,1800 #120 tab 08/16/20 clonazepam 0.5 mg tablet 0.25 mg PO BEDTIME #14 tab 09/10/20 potassium chloride 20 mEq 40 meq PO BEDTIME 30 Days #60 tab 09/20/20 tablet,extended release gabapentin 100 mg capsule 100 mg PO TID #270 cap 09/21/20 pen needle, diabetic 32 gauge x #50 ea 09/23/20 DS: Summary Time Spent with Patient Time attestation: Total time spent providing and/or coordinating discharge services: Discharge coordination time: Greater than 30 minutes Physical Exam Vital Signs: Vital Signs: Last Vital Signs Temp 97.1 F 11/06/20 11:35 Pulse 107 H 11/06/20 11:35 Resp 18 11/06/20 12:30 BP 138/89 11/06/20 11:35 Pulse Ox 90 L 11/06/20 11:35 Body Mass Index 47.0 DS: Data Data Completed and Pending Pending studies at discharge: Pending at discharge 11/06/20 11:08 Surgical [PTH] Routine Labs on day of discharge: Laboratory Results - last 24 hr 11/06/20 11/06/20 11/06/20 07:59 08:09 08:13 POC Glucose 166 H COVID-19 (TIM) Negative COVID-19 Clin Com See Note Blood Type A Positive Antibody Screen NEGATIVE Discharge Plan Discharge Patient Disposition: Home, Self-Care Discharge Diagnosis: biliary dyskinesia s/p laparoscopic cholecystectomy Referrals: Traci Baxter MD [Primary Care Provider] - 1 Week Discharge Medications: New oxycodone 5 mg capsule 5 mg PO Q8H PRN (Reason: pain) Qty: 20 RF: 0 docusate sodium 100 mg tablet 100 mg PO DAILY Qty: 30 RF: 0 Continued cholecalciferol (vitamin D3) 125 mcg (5,000 unit) capsule 125 mcg PO DAILY Qty: 90 RF: 3 vitamin E 400 unit capsule 1 cap PO DAILY Qty: 90 RF: 3 potassium chloride 20 mEq tablet extended release 40 meq PO BEDTIME 30 Days Qty: 60 RF: 5 gabapentin 100 mg capsule 100 mg PO TID Qty: 270 RF: 3 (DME) pen needle, diabetic [BD Janay 2nd Gen Pen Needle] 32 gauge x 5/32 needle See Rx Instructions .MEDSUPPLY Qty: 50 RF: 4 albuterol sulfate [Ventolin HFA] 90 mcg/actuation Hfa Aerosol Inhaler 2 puff INHALATION Q4H PRN (Reason: Shortness Of Breath) RF: 0 budesonide-formoterol [Symbicort] 160-4.5 mcg/actuation Hfa Aerosol Inhaler 2 puff INHALATION BID RF: 0 atorvastatin 10 mg tablet 10 mg PO BEDTIME RF: 0 Trulicity 1.5 mg/0.5 mL pen injector 1.5 mg subcut QWEEK RF: 0 furosemide 40 mg tablet 40 mg PO BID@0900,1800 Qty: 120 RF: 5 omeprazole 40 mg capsule,delayed release(DR/EC) 40 mg PO BEDTIME RF: 0 montelukast 10 mg tablet 10 mg PO BEDTIME RF: 0 Spiriva Respimat 2.5 mcg/actuation mist 2 puff inhalation DAILY RF: 0 budesonide-formoterol [Symbicort] 160-4.5 mcg/actuation HFA aerosol inhaler 2 puff inhalation BID Qty: 10.2 RF: 6 Toujeo SoloStar U-300 Insulin 300 unit/mL (1.5 mL) insulin pen 15 unit subcut BEDTIME 90 Days Qty: 9 RF: 2 metformin 500 mg tablet extended release 24hr 1,000 mg PO BID 90 Days Qty: 360 RF: 1 ibuprofen 800 mg tablet 800 mg PO BID PRN (Reason: Pain) RF: 0 clonazepam [Klonopin] 0.5 mg tablet 0.25 mg PO BEDTIME Qty: 14 RF: 1 Discharge Orders: Discharge Order (Routine); Ordered 11/07/20 Ordered By: Crissy Cheng Diet: advance to usual diet Activity on Discharge: No heavy lifting Activity Restrictions/Additional Instructions: 1. Resume normal diet 2. No heavy lifting > 5 lb for 4 weeks 3. Follow up with Dr. Cheng in 2 weeks Care Plan Goals: improvement of biliary dyskinesia Health Concerns: biliary dyskinesia Plan of Treatment: s/p lap cholecystectomy Assessment: 1 day s/p laparoscopic cholecystectomy, discharged home Discharge Date/Time: 11/07/20 11:34
[2020-11-06] MEDS: oxyCODONE HCl Immed Release 5 MG TABLET PO ×2 (14:00→21:39)
[2020-11-06] MEDS: Gabapentin 100 MG CAPSULE PO ×2 (15:57→21:39)
[2020-11-06 16:45] LABS: Glucose, Whole Blood 203 mg/dL (60-115)
[2020-11-06] MEDS: Insulin Lispro 100 UNIT/ML 3 ML VIAL SUBCUT ×2 (16:50→21:39)
[2020-11-06] MEDS: Furosemide 40 MG TABLET PO (16:50)
[2020-11-06 20:41] LABS: Glucose, Whole Blood 293 mg/dL (60-115)
[2020-11-06] MEDS: metFORMIN HCl ER 500 MG TAB.ER.24H 1000 MG PO (21:38)
[2020-11-06] MEDS: Montelukast Sodium 10 MG TABLET PO (21:38)
[2020-11-06] MEDS: Omeprazole 40 MG CAPSULE.DR PO (21:38)
[2020-11-06] MEDS: Potassium Chloride ER 20 MEQ TAB.ER.PRT 40 MEQ PO (21:38)
[2020-11-06] MEDS: clonazePAM 0.5 MG TABLET 0.25 MG PO (21:39)
[2020-11-06] MEDS: Atorvastatin Calcium 10 MG TABLET PO (21:39)
[2020-11-06] MEDS: Insulin Glargine,Hum.rec.anlog 100 UNIT/ML 10 ML VIAL 12 UNIT SUBCUT (21:40)
[2020-11-06] MEDS: cefoTEtan disodium 2 GM in 0.9 % Sodium Chloride 50 ML IV (22:49)
[2020-11-07] MEDS: oxyCODONE HCl Immed Release 5 MG TABLET PO ×2 (01:26→05:54)
--- NOTE | 2020-11-07 03:16 | CONS_ITS ---
DATE OF SERVICE: 11/06/2020 CHIEF COMPLAINT: Hypoxia. HISTORY OF PRESENTING ILLNESS: This is a very pleasant 60-year-old female patient with past medical history significant for sleep apnea, on CPAP; history of right-sided heart failure with severe pulmonary hypertension; COPD; diabetes and congestive heart failure, who underwent scheduled laparoscopic cholecystectomy. Postprocedure, the patient was noted to have O2 saturation of 88% to 86%, therefore the patient placed on 2 L of oxygen and admitted to hospital for close monitoring and treatment. The patient denies any shortness of breath, cough, chest discomfort, orthopnea, or PND. According to the patient, she always has low oxygen in high 80s that comes back to normal range with resting. The patient recently underwent overnight oximetry study in September of 2020 and did not qualify for oxygen. She is compliant with her CPAP. She denies any recent weight gain. She denies any worsening leg edema, that she chronically has intermittent edema. According to the patient, she is unable to exercise due to neuropathy and pain in legs. The patient is being followed closely by Cardiology in regard to her pulmonary hypertension and severe tricuspid regurgitation. She had a recent echocardiogram in May of 2020, and is scheduled to have another one in December of 2020. PAST MEDICAL HISTORY: Significant for, 1. History of COPD/asthma. 2. History of diabetes mellitus. 3. History of hypertension. 4. History of sleep apnea, on CPAP. 5. History of seasonal allergies. 6. History of severe tricuspid regurgitation. 7. History of severe pulmonary hypertension and right-sided heart failure. PAST SURGICAL HISTORY: 1. She is status post tubal ligation. 2. Status post carpal tunnel surgery. SOCIAL HISTORY: The patient lives at home with her granddaughter. She quit smoking a year and a half ago. She denies alcohol abuse or illicit drug use. ALLERGIES: SHE IS ALLERGIC TO ERYTHROMYCIN THAT CAUSES GI PAIN AND COREG THAT CAUSES UPSET STOMACH. MEDICATIONS: The patient's current medications are Lipitor 10 mg at bedtime, Klonopin 0.25 mg p.o. at bedtime, Lasix 40 mg b.i.d., Neurontin 100 mg t.i.d., metformin 1000 b.i.d., Singulair 10 mg at bedtime, omeprazole 40 mg at bedtime, potassium 40 mEq at bedtime, Spiriva 2 puffs inhaler daily, Lantus 12 units subcutaneously at bedtime, and Breo Ellipta 1 puff inhaler daily. She is on oxycodone 5 mg as needed for pain and albuterol 2 puffs inhaler every 6 hours as needed. PHYSICAL EXAMINATION: GENERAL: The patient is resting comfortably, does not appear to be in acute distress. NECK: Supple. No JVD. LUNGS: Clear to auscultation bilaterally with no wheeze, crackles, or rhonchi. HEART: Regular rate and rhythm with a systolic murmur. ABDOMEN: Obese. There is abdominal binder in place. Bowel sounds are audible. EXTREMITIES: With mild pitting edema. NEUROLOGIC: Nonfocal. PSYCHIATRIC: Appropriate affect. SKIN: Without rashes. LABORATORY DATA: Blood sugar is 166. No imaging studies available. EKG from 11/05/2020, showed sinus tachycardia with PACs, biatrial enlargement, right axis deviation, right ventricular hypertrophy. There is aberrant conduction noted. ASSESSMENT AND PLAN: This is a 60-year-old female patient with multiple medical problems including chronic obstructive pulmonary disease and sleep apnea, on CPAP, recently underwent overnight oximetry and did not qualify for home oxygen, is being admitted for close monitoring post surgery for hypoxia. PROBLEM LIST: 1. Acute hypoxic respiratory failure. The patient with underlying history of COPD and sleep apnea. Post cholecystectomy procedure, noted to have a finger oximetry of 86% to 88%. According to the patient, she intermittently has low O2 sats, but she remains asymptomatic and recent overnight oximetry did not show that she qualifies for oxygen. The patient will be continued on O2 therapy for now. We will gradually wean oxygen. Encourage incentive spirometry and continue home inhalers. There is no evidence of acute COPD exacerbation at the present time. Likely, the patient's chronic hypoxia is related to her severe pulmonary hypertension, COPD and morbid obesity. Advised patient to lose weight, follow a low-calorie diet and exercise. 2. Diabetes mellitus. The patient's diet will be changed to diabetic diet. Continue home medication. We will add an insulin sliding scale. 3. History of COPD with no acute exacerbation. 4. History of right-sided heart failure with no acute exacerbation. 5. Deep vein thrombosis prophylaxis as per surgical team. Thank you for allowing us to participate in the care of this patient. MD JA Kahn/PATTIE / [id number] IRAIS
[2020-11-07 04:00] VITALS: BP 130/91; PULSE 91; RESP 20; TEMP 36.3; O2SAT 93
[2020-11-07 07:31] LABS: Glucose, Whole Blood 146 mg/dL (60-115)
[2020-11-07 07:46] VITALS: BP 110/72; PULSE 96; RESP 20; TEMP 36.6; O2SAT 93
[2020-11-07] MEDS: Fluticasone/Vilanterol 200/25 BLST.W.DEV 1 PUFF INHALE (08:02)
[2020-11-07 08:03] VITALS: PULSE 92; O2SAT 96
[2020-11-07] MEDS: Furosemide 40 MG TABLET PO (08:18)
[2020-11-07] MEDS: Gabapentin 100 MG CAPSULE PO (08:18)
[2020-11-07] MEDS: metFORMIN HCl ER 500 MG TAB.ER.24H 1000 MG PO (08:18)
--- NOTE | 2020-11-07 09:34 | P.PNIM_ITS ---
Subjective Subjective Date of Service: 11/07/20 Interval History: Patient seen examined for follow-up on hypoxia, patient complained of abdominal pain this morning improved with pain medication, currently denies shortness of breath, no pain, no palpitation. General no headache, no dizziness no fever chills. CVS no chest pain, no palpitation. Respiratory no cough, no sob. Gastrointestinal no nausea, no vomiting,no diarrhea Physical Exam Vital Signs: Vital Signs: Last Vital Signs Temp 97.8 F 11/07/20 07:46 Pulse 92 11/07/20 08:03 Resp 20 11/07/20 07:46 BP 110/72 11/07/20 07:46 Pulse Ox 93 11/07/20 07:46 Body Mass Index 47.0 General no acute distress. Neck no JVD. CVS regular rate rhythm, Respiratory lungs clear to auscultation, no respiratory distress, no wheeze, no rhonchi. Gastrointestinal abdomen binder in place bowel sounds audible. Extremities no clubbing , cyanosis or edema. Neuro nonfocal , speech clear. Skin no rash Objective Data Current Medications Generic Name Dose Route Start Last Admin Trade Name Freq PRN Reason Stop Dose Admin Albuterol Sulfate 2 puff 11/06/20 13:00 Albuterol Sulfate 90 Mcg 8 Gm Inhaler INHALE RQ6H PRN Wheezing Albuterol Sulfate 2 puff 11/06/20 15:11 Albuterol Sulfate 90 Mcg 8 Gm Inhaler INHALE Q4H PRN Shortness Of Breath Atorvastatin Calcium 10 mg 11/06/20 21:00 11/06/20 21:39 Atorvastatin Calcium 10 Mg Tablet PO 10 mg BEDTIME SARAHI Administration Clonazepam 0.25 mg 11/06/20 21:00 11/06/20 21:39 Clonazepam 0.5 Mg Tablet PO 0.25 mg BEDTIME SARAHI Administration Fluticasone/Vilanterol 1 puff 11/06/20 08:00 11/07/20 08:02 Fluticasone/Vilanterol 200/25 Blst.W.Dev INHALE 1 puff RDAILY SARAHI Administration Furosemide 40 mg 11/06/20 18:00 11/07/20 08:18 Furosemide 40 Mg Tablet PO 40 mg BID@0900,1800 SARAHI Administration Protocol Gabapentin 100 mg 11/06/20 15:11 11/07/20 08:18 Gabapentin 100 Mg Capsule PO 100 mg TID SARAHI Administration Cefotetan Disodium 2 gm/ 50 mls @ 100 mls/hr 11/06/20 22:15 11/06/20 23:34 Sodium Chloride IV Infused POSTOP@2215 SARAHI Infusion Insulin Glargine 12 unit 11/06/20 21:00 11/06/20 21:40 Insulin Glargine,Hum.Rec.Anlog 100 Unit/Ml 10 Ml Vial SUBCUT 12 unit BEDTIME SARAHI Administration Insulin Human Lispro 0 unit 11/06/20 16:30 11/07/20 07:27 Insulin Lispro 100 Unit/Ml 3 Ml Vial SUBCUT Not Given QIDACHS [facility] Protocol Metformin HCl 1,000 mg 11/06/20 21:00 11/07/20 08:18 Metformin Hcl Er 500 Mg Tab.Er.24h PO 1,000 mg BID SARAHI Administration Montelukast Sodium 10 mg 11/06/20 21:00 11/06/20 21:38 Montelukast Sodium 10 Mg Tablet PO 10 mg BEDTIME SARAHI Administration Omeprazole 40 mg 11/06/20 21:00 11/06/20 21:38 Omeprazole 40 Mg Capsule.Dr PO 40 mg BEDTIME SARAHI Administration Oxycodone HCl 5 mg 11/06/20 12:57 11/07/20 05:54 Oxycodone Hcl Immed Release 5 Mg Tablet PO 5 mg Q4H PRN Administration Pain, Severe (Pain Scale 7-10) Potassium Chloride 40 meq 11/06/20 21:00 11/06/20 21:38 Potassium Chloride Er 20 Meq Tab.Er.Prt PO 40 meq BEDTIME SARAHI Administration Tiotropium [place] 2 puff 11/07/20 08:00 11/07/20 08:02 Tiotropium [place] 18 Mcg Cap.W.Dev INHALE 2 puff RDAILY SARAHI Administration Assessment and Plan (1) Acute respiratory failure with hypoxia: Status: Acute (2) Status post laparoscopic cholecystectomy: Status: Acute (3) COPD (chronic obstructive pulmonary disease): Problem details: SHE HAS MODERATELY SEVERE COPD. FOR THIS SHE WILL CONTINUE TO USE SYMBICORT 160-4.52 PUFFS B.I.D. AND SPIRIVA RESPIMAT 2 INHALATIONS DAILY. USE VENTOLIN INH 2 PUFFS Q 4-6 HOURS ONLY P.R.N.. Status: Acute (4) Morbid obesity: Status: Acute (5) Obstructive sleep apnea: Status: Acute Assessment and Plan: 1. Acute hypoxic respiratory failure. Likely due to underlying COPD and sleep apnea. Postprocedure, noted to have a finger oximetry of 86% to 88%. According to the patient, she intermittently has low O2 sats, that returns to normal once she started taking deep breath she remains asymptomatic overnight, patient oxygenation discontinued, and now current oxygenation 91% on RA recent overnight finger oxiimetry study did not show that she qualifies for oxygen. Likely, she has chronic hypoxia related to her severe pulmonary hypertension, COPD and morbid obesity. Advised to lose weight,follow a low- calorie diet and exercise. Patient is medically stable for discharge home. 2. Diabetes mellitus. cont. diabetic diet and home medication. 3. History of COPD with no acute exacerbation. 4. History of right-sided heart failure with no acute exacerbation. 5. Deep vein thrombosis prophylaxis as per surgical team.
--- NOTE | 2020-11-07 11:40 | MHC.CM.PN ---
NURSE FAMILY SERVICE ASSISTANT NOTE PATIENT WAS DISCHARGE AND LEFT BEFORE BEING SEEN BY CASE MANAGEMENT, ELECTRONIC MEDICAL RECORD REVIEWED ALONG WITH CASE DISCUSSED WITH STAFF NURSE AFTER PATIENT HAD LEFT, PATIENT IS S./P LAPAROSCOP[IC CHOLEYSTECTOMY FOR CHOLECYSTITIS REVBIEWED DISCHARGE ORDERS AND NO SERVICES WERE ORDERED
--- NOTE | 2020-11-07 16:21 | HO.POSTANES ---
Post Anesthesia Evaluation Post Anesthesia Evaluation Vital Signs: Vital Signs Temp Pulse Resp BP Pulse Ox 11/07/20 08:03 92 11/07/20 07:46 97.8 F 96 20 110/72 93 Anesthesia: General Endotracheal-GETA Mental Status: Awake Pain Control: Satisfactory Nausea/Vomiting: None Hydration: Adequate Anesthesia-Related Issues: No Anes. Related Issues
== END 2020-11-07 11:34 | disposition home or self-care (01) | DRG 263 ==
LOC: HO.SSSA 14:21 → HO.S3 14:52
PROVIDERS: Admitting Provider Surgery; PCP Internal Medicine; Visit Provider Surgery
PROC: 0FT44ZZ Resection of Gallbladder, Percutaneous Endoscopic Approach (ICD-10-PCS; CPT 47562; principal; 2020-11-06 09:10)
DX: K82.8 Other specified diseases of gallbladder (principal); J96.01 Acute respiratory failure with hypoxia; I27.29 Other secondary pulmonary hypertension; I50.812 Chronic right heart failure; E66.2 Morbid (severe) obesity with alveolar hypoventilation; Z68.42 Body mass index [BMI] 45.0-49.9, adult; J44.9 Chronic obstructive pulmonary disease, unspecified; E11.9 Type 2 diabetes mellitus without complications; Z20.822 Contact with and (suspected) exposure to COVID-19; Z87.891 Personal history of nicotine dependence; Z79.1 Long term (current) use of non-steroidal anti-inflammatories (NSAID); Z79.4 Long term (current) use of insulin; Z79.899 Other long term (current) drug therapy
CPT/HCPCS: 36415; 82947; 86850; 86900; 86901; 87635; 88304; 93005; 94640; 99024; J0131; J1100; J1885; J2250; J2370; J2405; J3010

== ENCOUNTER 2020-11-13 08:56 | Outpatient (REF) | payer OTHER, SELFPAY ==
--- NOTE | ~2020-11-13 | CT_ITS ---
EXAMINATION: CT ABDOMEN WITHOUT AND WITH CONTRAST CLINICAL INFORMATION: Abnormal results of endocrine function study COMPARISON: Previous CT of the abdomen and pelvis January 2016 and abdominal ultrasound most recent January 2020 TECHNIQUE: Contiguous axial thin section helical images of the abdomen were performed before and after the administration of oral contrast and 85 mL of Omnipaque 350 intravenous contrast. The data set was reformatted in the coronal and sagittal planes and reviewed on an independent workstation. This CT examination was performed using dose optimization techniques as appropriate, variously including the following: *Automated exposure control *Adjustment of mA and/or kV according to patient size (this includes techniques or standardized protocols for targeted exams where dose is matched to indication/reason for exam; i.e. extremities or head) *Use of iterative reconstruction technique DLP: 1472 mGy-cm FINDINGS: LUNG BASES: The heart is slightly enlarged. There is a tiny pericardial effusion. There is subsegmental atelectasis at the lung bases. LIVER, GALLBLADDER, AND BILIARY TREE: The liver is slightly low in attenuation suggestive of mild fatty infiltration. There are 2 small low-attenuation liver lesions measuring 7 mm high in the junction of the medial segment of the left lobe and anterior segment of the right lobe axial image 20 series 6 and in the peripheral anterior segment of the right lobe axial image 37 series 6 that are stable from 2016 and therefore probably benign. The gallbladder has been removed. There is no biliary duct dilatation. PANCREAS: Normal SPLEEN: Normal ADRENAL GLANDS AND KIDNEYS: The adrenal glands are normal. No nodule is seen. There is a small 1 cm low-attenuation lesion in the lower pole of the left kidney that is stable from previous exam from 2016 and is suggestive of a cyst.. The kidneys are otherwise unremarkable. BOWEL LOOPS: Visualized small and large bowel is unremarkable. The stomach is unremarkable. There is a small umbilical hernia containing fat. There is a cutaneous edema of the anterior abdominal wall, greatest in the periumbilical region. LYMPH NODES: There are no enlarged lymph nodes. There is no ascites. VASCULAR: There is evidence of atherosclerotic disease. No aneurysm is seen. BONES: There are degenerative changes of the spine. CT/CT abdomen wo/w con IMPRESSION: Normal-appearing adrenal glands. No adrenal nodule seen. Fatty liver. Stable low-attenuation liver lesions from 2016 suggestive of a benign process. Small left renal cyst.
[2020-11-13] MEDS: iohexoL 350 MG/ML 100 ML INFUS..BTL IV (10:09)
== END 2020-11-13 08:57 | disposition home or self-care (01) ==
LOC: HO.CT 08:56
PROVIDERS: Visit Provider Internal Medicine Endocrinology, Diabetes & Metabolism
DX: R94.7 Abnormal results of other endocrine function studies (principal)
CPT/HCPCS: 74170; Q9967

== ENCOUNTER → 2020-11-26 15:26 | Outpatient (BNVA) | payer OTHER, SELFPAY | PROVIDERS: PCP Internal Medicine; Referring Provider Internal Medicine; Visit Provider Surgery | DX: Z90.49 Acquired absence of other specified parts of digestive tract (principal) | CPT/HCPCS: 99212 ==

== ENCOUNTER → 2020-12-17 13:08 | Outpatient (BNVA) | payer OTHER, SELFPAY | PROVIDERS: PCP Internal Medicine; Visit Provider Internal Medicine Endocrinology, Diabetes & Metabolism ==

== ENCOUNTER 2020-12-25 12:08 | Emergency (ER) | payer OTHER, SELFPAY ==
--- NOTE | ~2020-12-25 | XR_ITS ---
EXAMINATION: XR CHEST CLINICAL INFORMATION: Left-sided chest pain. COMPARISON: CT chest 08/12/2020. TECHNIQUE: Frontal view of the chest was obtained. FINDINGS: The lungs are well-expanded and clear. The heart size is moderately enlarged. Pulmonary vascularity is normal. No gross bony abnormality seen. XR/XR chest 1V IMPRESSION: Mild cardiomegaly. No acute process seen.
[2020-12-25 12:15] VITALS: BP 121/85; PULSE 94; RESP 18; TEMP 36.7; O2SAT 93; BMI 46.6
--- NOTE | 2020-12-25 12:26 | PC.NURSE ---
pt requesting ibuprofen, standing order placed.
[2020-12-25] MEDS: Ibuprofen 600 MG TABLET PO (12:28)
--- NOTE | 2020-12-25 13:13 | ED_ITS ---
HPI - General Adult General Chief complaint: General Medical Stated complaint: pt states her heart hurts Time Seen by Provider: 12/25/20 13:13 Source: patient Mode of arrival: ambulatory Limitations: no limitations History of Present Illness HPI narrative: excrutiating left arm pain radiating into the neck. No chest pain no radiation into the back. patient state that her left elbow is swollen. No fever no shaking chills. Patient has CHF secondary to sleep apnea. Onset (ago): day(s) Location: upper extremity Radiation: neck Severity: moderate Quality: burning Pain Consistency: constant Relieving factors: none Exacerbating factors: movement Related Data Home Medications Medication Instructions Recorded Confirmed albuterol sulfate [Ventolin HFA] 2 puff INHALATION Q4H PRN 05/17/20 12/17/20 omeprazole 40 mg capsule,delayed 40 mg PO BEDTIME 05/17/20 12/17/20 release tiotropium bromide 2.5 2 puff INHALATION DAILY 06/07/20 12/17/20 mcg/actuation mist for inhalation ibuprofen 800 mg tablet 800 mg PO BID PRN tab 08/20/20 12/17/20 budesonide-formoterol [Symbicort] 2 puff INHALATION BID 11/06/20 12/17/20 Previous Rx's Medication Instructions Recorded cholecalciferol (vitamin D3) 125 125 mcg PO DAILY #90 cap 07/30/20 mcg (5,000 unit) capsule vitamin E 400 unit capsule 1 cap PO DAILY #90 cap 08/01/20 furosemide 40 mg PO BID@0900,1800 #120 tab 08/16/20 gabapentin 100 mg capsule 200 mg PO TID #270 cap 11/14/20 potassium chloride 20 mEq 40 meq PO BEDTIME 90 Days #180 tab 11/18/20 tablet,extended release atorvastatin 10 mg tablet 10 mg PO DAILY #90 tab 11/25/20 dulaglutide 3 mg/0.5 mL 3 mg SUBCUT QWEEK 30 Days #2.5 ml 12/17/20 subcutaneous pen injector insulin glargine U-300 conc 300 15 unit SUBCUT BEDTIME 90 Days #9 12/17/20 unit/mL (1.5 mL) subcutaneous pen ml pen needle, diabetic 32 gauge x #50 ea 12/17/20 metformin 500 mg tablet,extended 1,000 mg PO BID 90 Days #360 tab 12/24/20 release 24hr montelukast 10 mg tablet 10 mg PO BEDTIME #90 tab 12/25/20 naproxen [Naprosyn] 500 mg PO BID #20 tab 12/25/20 Allergies Allergy/AdvReac Type Severity Reaction Status Date / Time erythromycin base Allergy Severe GI Verified 12/25/20 12:15 [From E-MYCIN] PAIN-SEVERE carvedilol Allergy Mild upset Verified 12/25/20 12:15 stomach, sweats Review of Systems Constitutional: Constitutional: Reports no additional constitutional complaints Eyes: Eyes: Reports no additional eye complaints ENT: Denies dizziness Cardiovascular: Cardiovascular: Reports no additional cardiovascular complaints Respiratory: Respiratory: Reports as per HPI Gastrointestinal: Gastrointestinal: Reports no additional gastrointestinal complaints Genitourinary: Genitourinary: Reports no additional female genitourinary complaints Musculoskeletal: Musculoskeletal: Reports no additional musculoskeletal complaints Integumentary/Breasts: Skin/Breast: Denies rash Neurologic: Reports system reviewed and no additional complaints, except as documented, Denies dizziness and Denies Sensory deficit (Neuro) Psychiatric: Psychiatric: Denies anxiety [facility] Past Medical History Medical History Abdominal pain Abnormal dexamethasone suppression test BABAK (acute kidney injury) Anxiety CHF exacerbation Chronic right heart failure COPD (chronic obstructive pulmonary disease) COPD (chronic obstructive pulmonary disease) Diabetes type 2, controlled Diabetes type 2, uncontrolled Diabetic nephropathy associated with type 2 diabetes mellitus Dyslipidemia Edema Hypermagnesemia Hypokalemia Hypoxia Lightheaded Morbid obesity Neuropathy Nocturnal hypoxemia Obstructive sleep apnea on CPAP JACKSON on CPAP Preoperative cardiovascular examination Preoperative examination Pulmonary hypertension Right heart failure Sleep apnea Tachycardia Urge incontinence Surgical History History of carpal tunnel release History of endoscopy Hx of colonoscopy Hx of tubal ligation Status post laparoscopic cholecystectomy Family History Family History Father Myocardial infarction Diabetes mellitus Mother Pancreatic cancer Maternal Grandfather Diabetes mellitus Maternal Aunt Pancreatic cancer Maternal Uncle AAA (abdominal aortic aneurysm) Brother No problems noted. Sister No problems noted. Sister No problems noted. Sister No problems noted. Son No problems noted. Daughter No problems noted. Daughter No problems noted. Social History Social History Household Members: Family Housing: House Housing Other:: Granddaughter Are you a primary overnight caregiver to a significant other at home: No Do you presently have visiting nurse or other home services: No Alcohol intake: current Alcohol intake frequency: holidays/special occasions only Years Smoked: 33 Substance Use Type: Marijuana Advance Directives: No Advance Directives Information Provided: No Patient : No service: No Current occupational status: unemployed Physical Exam 2 Vital Signs: Vital Signs: Last Vital Signs Temp 98.1 F 12/25/20 14:38 Pulse 86 12/25/20 14:38 Resp 18 12/25/20 14:38 BP 94/64 12/25/20 14:38 Pulse Ox 90 L 12/25/20 14:38 Body Mass Index 46.6 Const: Other: not ill appearing Nutritional Appearance: obese Orientation/consciousness: oriented to person and patient oriented x3 Limitations: no limitations HENMT: Head: Yes normal to inspection Ears: external ears normal General nose exam: Normal external nose present Mouth: Normal oral and palatal mucosa present and oropharynx normal Throat: Yes posterior oropharynx normal Eyes: General: appearance normal, both eyes and all related structures Neck: Other: supple Neck: Yes normal visual inspection Chest: Chest palpation & inspection: normal inspection of the chest Resp: Auscultation: clear to auscultation bilaterally Cardio: Jugular venous distension: no JVD Rate: regular rate Rhythm: regular rhythm Heart sounds: S1 normal heart sound present and S2 normal heart sound present GI: Inspection: Yes normal to inspection Palpation (GI): Soft to palpation, nontender and No hepatosplenomegaly present Auscultation: normal bowel sounds : General: Yes no CVA tenderness Back/Spine/Pelvis: Back: no CVA tenderness Skin: General skin exam: no rashes or lesions noted Neuro: General: oriented to person and patient oriented x3 Cranial nerves: Yes CN's II-XII intact bilaterally Motor exam (neuro): 5/5 motor strength present throughout Sensory Exam: No Sensory deficit (Neuro) Extrem: Other: left elbow with swelling to olecranon bursa, no erythema, not hot. Psych: Appearance: grossly normal Course Reevaluation(s) Reevaluation #1: patient with no acute cardiac process left arm with olecranon bursitis will dc home on NSAIDs Time: 15:44 Medical Decision Making Lab Data Result diagrams: 12/25/20 13:58 12/25/20 14:45 Labs: Lab Results 12/25/20 12/25/20 12/25/20 Range/Units 13:58 13:58 14:45 WBC 8.7 (4.8-10.8) X10*3/uL RBC 4.46 (4.20-5.50) X10*6/uL Hgb 12.9 (12.0-16.0) g/dl Hct 40.5 (37-47) % MCV 90.8 (80-98) fL MCH 28.9 (27.0-33.0) pg MCHC 31.9 (31.0-35.0) g/dl RDW 17.7 H (11.0-16.0) % Plt Count 244 (160-400) X10*3/uL MPV 10.1 (9.4-12.3) fL Immature Gran % (Auto) 0.3 (0.0-0.4) % Neut % (Auto) 74.4 H (45-73) % Lymph % (Auto) 17.4 L (20-40) % [place] % (Auto) 7.4 (2-11) % Eos % (Auto) 0.3 (0-4) % Baso % (Auto) 0.2 (0-2) % Lymph # (Auto) 1.5 (1.2-4.9) X10*3/uL [place] # (Auto) 0.6 (0.1-1.2) X10*3/uL Eos # (Auto) 0.0 (0.0-0.4) X10*3/uL Baso # (Auto) 0.0 (0.0-0.2) X10*3/uL Abs Immat Gran (auto) 0.03 (0.00-0.03) X10*3/uL Absolute Neuts (auto) 6.5 (2.0-8.3) X10*3/uL Absolute Nucleated RBC 0.000 (0.0-0.012) X10*3/uL Nucleated RBC % (auto) 0.0 (0.0-0.2) /100WBC Sodium 140 (135-145) mmol/L Potassium 3.2 L (3.3-5.1) mmol/L Chloride 97 (96-108) mmol/L Carbon Dioxide 27 (22-29) mmol/L Anion Gap 19 (12-20) BUN 20 H (9-16) mg/dL Creatinine 0.94 (0.5-1.4) mg/dL Estim Creat Clear Calc 78.5 Estimated GFR > 60 Random Glucose 115 D (60-115) mg/dL Calcium 8.2 L (8.4-10.2) mg/dL Troponin I High Sens 9.2 (<3.5-17.0) ng/L B-Natriuretic Peptide 699 H (<100) pg/mL Imaging Data Chest x-ray: Radiologist's impression: IMPRESSION: Mild cardiomegaly. No acute process seen. ECG Data Attestation: I personally reviewed and interpreted this ECG as follows: Interpretation: sinus rate 90, RBBB, old flipped ts V2-V4 no new ischemic changes Discharge Plan Discharge Clinical Impression: Bursitis, olecranon Qualifiers: Laterality: left Qualified Code(s): M70.22 - Olecranon bursitis, left elbow Patient Disposition: Home, Self-Care Instructions: Elbow Bursitis (ED) Prescriptions: New naproxen [Naprosyn] 500 mg tablet 500 mg PO BID Qty: 20 RF: 0 No Action cholecalciferol (vitamin D3) 125 mcg (5,000 unit) capsule 125 mcg PO DAILY Qty: 90 RF: 3 vitamin E 400 unit capsule 1 cap PO DAILY Qty: 90 RF: 3 gabapentin 100 mg capsule 200 mg PO TID Qty: 270 RF: 3 potassium chloride 20 mEq tablet extended release 40 meq PO BEDTIME 90 Days Qty: 180 RF: 1 atorvastatin 10 mg tablet 10 mg PO DAILY Qty: 90 RF: 1 metformin 500 mg tablet extended release 24hr 1,000 mg PO BID 90 Days Qty: 360 RF: 1 montelukast 10 mg tablet 10 mg PO BEDTIME Qty: 90 RF: 3 albuterol sulfate [Ventolin HFA] 90 mcg/actuation Hfa Aerosol Inhaler 2 puff INHALATION Q4H PRN (Reason: Shortness Of Breath) RF: 0 budesonide-formoterol [Symbicort] 160-4.5 mcg/actuation Hfa Aerosol Inhaler 2 puff INHALATION BID RF: 0 furosemide 40 mg tablet 40 mg PO BID@0900,1800 Qty: 120 RF: 5 omeprazole 40 mg capsule,delayed release(DR/EC) 40 mg PO BEDTIME RF: 0 Spiriva Respimat 2.5 mcg/actuation mist 2 puff inhalation DAILY RF: 0 ibuprofen 800 mg tablet 800 mg PO BID PRN (Reason: Pain) RF: 0 Toujeo SoloStar U-300 Insulin 300 unit/mL (1.5 mL) insulin pen 15 unit subcut BEDTIME 90 Days Qty: 9 RF: 2 (DME) pen needle, diabetic [BD Janay 2nd Gen Pen Needle] 32 gauge x 5/32 needle See Rx Instructions .MEDSUPPLY Qty: 50 RF: 4 Trulicity 3 mg/0.5 mL pen injector 3 mg subcut QWEEK 30 Days Qty: 2.5 RF: 0 Referrals: Traci Baxter MD [Primary Care Provider] - 1 week
--- NOTE | 2020-12-25 13:21 | ECG_ITS ---
Test Reason : CP Blood Pressure : / mmHG Vent. Rate : 094 BPM Atrial Rate : 094 BPM P-R Int : 186 ms QRS Dur : 106 ms QT Int : 400 ms P-R-T Axes : 071 115 042 degrees QTc Int : 500 ms Normal sinus rhythm Biatrial enlargement Right axis deviation Incomplete right bundle branch block Right ventricular hypertrophy with repolarization abnormality Cannot rule out Anteroseptal infarct , age undetermined Prolonged QT Abnormal ECG When compared to the previous EKG of No significant changes seen Referred By: Andrew Pedersen Electronically Signed By:Go Jain
[2020-12-25 13:51] VITALS: BP 127/72; PULSE 88; TEMP 36.6; O2SAT 91
[2020-12-25] MEDS: Ketorolac Tromethamine 30 MG/ML VIAL IVPUSH (14:18)
[2020-12-25 14:23] LABS: MANUAL DIFF FLAG NO
[2020-12-25 14:25] LABS: Basophils Percent Auto 0.2 % (0-2); Eosinophils Percent Auto 0.3 % (0-4); Hematocrit 40.5 % (37-47); Hemoglobin 12.9 g/dl (12.0-16.0); Imm Gran Abs Auto 0.03 X10*3/uL (0.00-0.03); Imm Gran Pct Auto 0.3 % (0.0-0.4); Lymphocytes Absolute Auto 1.5 X10*3/uL (1.2-4.9); Lymphocytes Percent Auto 17.4 % (20-40); Mean Corpuscular HGB Conc 31.9 g/dl (31.0-35.0); Mean Corpuscular Hemoglobin 28.9 pg (27.0-33.0); Mean Corpuscular Volume 90.8 fL (80-98); Mean Platelet Volume 10.1 fL (9.4-12.3); Monocytes Absolute Auto 0.6 X10*3/uL (0.1-1.2); Monocytes Percent Auto 7.4 % (2-11); Neutrophils Absolute Auto 6.5 X10*3/uL (2.0-8.3); Neutrophils Percent Auto 74.4 % (45-73); Platelet Count 244 X10*3/uL (160-400); Red Blood Count 4.46 X10*6/uL (4.20-5.50); Red Cell Distribution Width 17.7 % (11.0-16.0); White Blood Count 8.7 X10*3/uL (4.8-10.8)
[2020-12-25 14:38] VITALS: BP 94/64; PULSE 86; RESP 18; TEMP 36.7; O2SAT 90
[2020-12-25 14:53] LABS: B Type Natriuretic Peptide 699 pg/mL (<100); Troponin-I High Sensitivity 9.2 ng/L (<3.5-17.0)
[2020-12-25 15:13] LABS: Anion Gap 19 (12-20); Blood Urea Nitrogen 20 mg/dL (9-16); Calcium 8.2 mg/dL (8.4-10.2); Carbon Dioxide 27 mmol/L (22-29); Chloride 97 mmol/L (96-108); Creatinine Clr Calc Pharmacy 78.5; Estimated Glomerular Filt Rate > 60; Glucose Random 115 mg/dL (60-115); Potassium 3.2 mmol/L (3.3-5.1); Sodium 140 mmol/L (135-145)
== END 2020-12-25 16:21 | disposition home or self-care (01) ==
PROVIDERS: Emergency Provider Emergency Medicine; PCP Internal Medicine
DX: M70.22 Olecranon bursitis, left elbow (principal); I50.9 Heart failure, unspecified; E11.9 Type 2 diabetes mellitus without complications; J44.9 Chronic obstructive pulmonary disease, unspecified; G47.33 Obstructive sleep apnea (adult) (pediatric); Z79.4 Long term (current) use of insulin; Z79.899 Other long term (current) drug therapy
CPT/HCPCS: 36415; 71045; 80048; 83880; 84484; 85025; 93005; 96374; 99284; J1885

== ENCOUNTER → 2021-02-24 08:33 | Outpatient (REF) | payer OTHER, SELFPAY ==
--- NOTE | 2021-02-24 08:37 | CA_ITS ---
Transthoracic Echocardiogram Patient (Last, First, Middle): Laura Golden J Gender: Female Date of : 1960 Age: 60 Procedure Date: 02/24/2021 Procedure Type: Transthoracic Echocardiogram Location: OP Height: 157.48 cm Weight: 113.4 kg BSA: 2.10 m2 Heart Rate: bpm BP: 106 / 80 mmHg Hair Tinter: [facility] MD: Darryl Cruz MD Symptoms: I50.812 - Chronic right heart failure Study Quality: Fair ECG Rhythm: Sinus Conclusions: - The left ventricular systolic function is normal. The visually estimated ejection fraction is between 55-60%. - There is a flattened septum in systole consistent with right ventricular pressure overload. - Moderately increased right ventricular cavity size. There is mildly decreased right ventricular systolic function. - The right atrium is severely dilated. - There is moderate tricuspid valve regurgitation. - Severe pulmonary hypertension is present. Findings Left Ventricle Normal left ventricular cavity size. There is moderately increased left ventricular wall thickness. The left ventricular systolic function is normal. The visually estimated ejection fraction is between 55-60%. There is a flattened septum in systole consistent with right ventricular pressure overload. Right Ventricle Moderately increased right ventricular cavity size. There is mildly decreased right ventricular systolic function. TAPSE 1.59cm. Atria The left atrium is normal in size. The right atrium is severely dilated. Aortic Valve The aortic valve was not well visualized. There is mild calcification of the aortic valve. There is no aortic valve stenosis. There is no aortic valve regurgitation. Mitral Valve There is mild mitral annular calcification. There is trace mitral valve regurgitation. There is no mitral valve stenosis. Pulmonic Valve The pulmonic valve was not well visualized. There is mild pulmonic valve regurgitation. Tricuspid Valve Normal tricuspid valve structure. There is moderate tricuspid valve regurgitation. The right ventricular systolic pressure is 77 mmHg. Severe pulmonary hypertension is present. Great Vessels The aortic annulus, sinuses of valsalva, asc aorta, and aortic arch are normal in size. Venous The inferior vena cava is dilated and collapses less than 50% with inspiration. Pericardium/Pleural There is a small circumferential pericardial effusion. There are no definitive echocardiographic findings of tamponade physiology. Prior Study Comparison No significant change compared to prior study dated: 05/20/2020. Measurements 2D Linear Measurements RVIDd: 4.70 RVIDd Index: 2.24 IVSd: 1.34 0.6-0.9/0.6-1.0 cm LVIDd: 3.57 3.9-5.3/4.2-5.9 cm LVIDd Index: 1.70 2.4-3.2/2.2-3.1 cm/m2 LVIDs: 2.40 2.0-3.6 cm LVPWd: 1.74 0.7-1.1 cm Ao Root: 2.60 2.1-3.5 cm LA Diam: 4.50 2.7-3.8/3.0-4.0 cm LAIDs Index: 2.14 1.5-2.3 cm/m2 LV Mass: 258.52 67-162/88-224 g LV Mass Index: 123.11 43-95/49-115 g/m2 LVOT Diam: 2.00 3.0+(-)1.3 cm LVOT LVOT Diam: 2.00 LVOT Area: 3.14 Right Ventricle TAPSE (mm): 16.00 TVS' Chau: 10.00 Tricuspid Valve TR Pk Chau: 3.95 TR Pk Grad: 62.00 RA Press: 15.00 RVSP: 77.00 Great Vessels Aorta Ao Root-2D: 2.60 2.0-3.7 cm Ao Asc: 3.30 2.1-3.4 cm Ao Arch: 3.00 Updated in Other Vendor System with Status of Final Darryl Cruz MD electronically signed on 02/24/2021 3:04:51 PM with status of Final
== END ==
LOC: HO.CARD 08:33
PROVIDERS: Visit Provider Internal Medicine
DX: I50.812 Chronic right heart failure (principal)
CPT/HCPCS: 93306

== ENCOUNTER 2021-02-24 10:10 | Inpatient (IN) | payer OTHER, SELFPAY ==
--- NOTE | ~2021-02-24 | XR_ITS ---
EXAMINATION: XR FOOT, RIGHT CLINICAL INFORMATION: Pain COMPARISON: Previous right foot x-ray February 2013 TECHNIQUE: AP, lateral, and oblique views of the right foot. FINDINGS: Bone alignment is normal. No fracture or dislocation is seen. The joint spaces are normal. There is marked small plantar calcaneal spurs. XR/XR foot RT 2V IMPRESSION: Small calcaneal spurs otherwise unremarkable exam
--- NOTE | ~2021-02-24 | XR_ITS ---
EXAMINATION: XR CHEST CLINICAL INFORMATION: SOB. COMPARISON: None TECHNIQUE: 2 views of the chest were obtained. FINDINGS: The heart size is enlarged with mild increased vascularity. No edema or congestion. The lungs are expanded and clear. No gross bony abnormality seen. XR/XR chest 2V IMPRESSION: Mild cardiomegaly with mild prominent perivascular but no congestion.
--- NOTE | ~2021-02-24 | US_ITS ---
EXAMINATION: US VENOUS ULTRASOUND WITH DOPPLER LOWER EXTREMITY, BILATERAL CLINICAL INFORMATION: Pulmonary embolism. COMPARISON: CTA chest on 03/01/2021 TECHNIQUE: Ultrasound of the deep veins is performed from the hip to the calf with compression sonography and color and pulse Doppler assessment. Spectral analysis with color-flow imaging is performed. FINDINGS: RIGHT: There is normal venous compression and respiratory variation and augmented flow. The visualized common femoral vein, superficial femoral vein, profunda femoral vein, popliteal vein, and the trifurcation region shows no evidence of deep venous thrombosis. There is no significant popliteal fossa cyst. LEFT: There is normal venous compression and respiratory variation and augmented flow. The visualized common femoral vein, superficial femoral vein, profunda femoral vein, popliteal vein, and the trifurcation region shows no evidence of deep venous thrombosis. There is no significant popliteal fossa cyst. If the patient's symptoms persist, followup ultrasound in 5 days 7 days might be of value to exclude proximal propagation from a non-visualized calf vein. US/US venous duplex LE BI IMPRESSION: No DVT demonstrated in either lower extremity.
--- NOTE | ~2021-02-24 | XR_ITS ---
EXAMINATION: XR CHEST CLINICAL INFORMATION: Hypoxia. COMPARISON: Chest done on 02/24/2021. TECHNIQUE: Frontal view of the chest was obtained. FINDINGS: The cardiomediastinal silhouette remain moderately enlarged, differential includes pericardial effusion versus cardiomegaly. Both lung dutta are clear. No evidence of any pulmonary venous congestion or pleural effusion. Visualized upper abdomen is unremarkable. XR/XR chest 1V IMPRESSION: Abnormally enlarged cardiac mediastinal silhouette. Differential includes effusion versus cardiomegaly. Clear lung dutta.
--- NOTE | ~2021-02-24 | CT_ITS ---
EXAMINATION: CT ANGIOGRAM OF THE CHEST WITH AND WITHOUT CONTRAST (CT PULMONARY ANGIOGRAM FOR PE) CLINICAL INFORMATION: Reason for Exam shortness of breath, hypoxia COMPARISON: Chest CT 08/12/2020, chest radiograph 03/01/2021 TECHNIQUE: Prior to contrast administration, noncontrast localization images were obtained. Subsequently, multidetector volumetric imaging was performed from the thoracic inlet to below the diaphragms following the administration of 65 mL Omnipaque 350 intravenous contrast. No contrast reaction reported Sagittal, coronal, and MIP oblique sagittal reformatted images were obtained on the CT workstation, uploaded to PACS, and reviewed. This CT examination was performed using dose optimization techniques as appropriate, variously including the following: *Automated exposure control *Adjustment of mA and/or kV according to patient size (this includes techniques or standardized protocols for targeted exams where dose is matched to indication/reason for exam; i.e. extremities or head) *Use of iterative reconstruction technique Total exam dose-length product 619 mGy-cm FINDINGS: QUALITY OF STUDY/CONTRAST BOLUS: Satisfactory. PULMONARY ARTERIES: There is a solitary subsegmental filling defects to the lateral posterior segment of the right upper lobe. No other pulmonary arterial filling defects are identified. Main pulmonary artery appears mildly enlarged, though this may be secondary to pulsation artifact. THORACIC AORTA: No aneurysm or dissection. LUNG: There are minimal emphysematous changes of the lungs. There are consolidative opacities airspace opacities and volume loss within the left lower lobe. There are areas of mild airways thickening in this region as well. The previously described 6 mm right upper lobe pulmonary nodule has decreased in size and now measures only 3 mm (image 185, series 9). No new pulmonary nodules are identified. Other than the region of mild airways thickening with the left lower lobe, the central and peripheral airways are unremarkable. PLEURA: No pleural effusion or pneumothorax. MEDIASTINUM: There is global cardiac enlargement, particularly of the right heart. There is reflux of contrast to the inferior vena cava and hepatic veins suggesting elevated right heart pressures. There is no pericardial effusion. No pathologically enlarged mediastinal or hilar lymph nodes are identified. CHEST WALL/AXILLA: No axillary or internal mammary lymphadenopathy. OSSEOUS STRUCTURES: No acute or suspicious osseous abnormality. UPPER ABDOMEN: Unremarkable. As noted above there is reflux of contrast into the hepatic veins suggesting elevated right heart pressures. CT/CT angio chest PE protocol IMPRESSION: Subsegmental pulmonary embolism within the lateral aspect of the posterior segment of the right upper lobe. No other pulmonary emboli are identified. Dilated main pulmonary artery suggestive of pulmonary arterial hypertension. Cardiac enlargement, particularly of the right heart with reflux of contrast into the hepatic veins. These findings, as well as dilation of the pulmonary artery, are suggestive of right heart dysfunction which could be correlated with echocardiography. There are left lower lobe airspace opacities and airways thickening which may be compatible with pneumonia. Interval decrease in the size of the previously described right upper lobe pulmonary nodule which now measures 3 mm. VTE: positive Findings were communicated by telephone with WINDY Garcia by rBendan Li M.D. at 1646 hours.
[2021-02-24 10:51] VITALS: BP 132/77; PULSE 81; RESP 18; TEMP 37; O2SAT 91; BMI 45.7
--- NOTE | 2021-02-24 11:17 | ECG_ITS ---
Test Reason : EDEMA Blood Pressure : / mmHG Vent. Rate : 087 BPM Atrial Rate : 087 BPM P-R Int : 176 ms QRS Dur : 118 ms QT Int : 412 ms P-R-T Axes : 074 119 049 degrees QTc Int : 495 ms Normal sinus rhythm Biatrial enlargement Low voltage QRS Right bundle branch block Cannot rule out Anteroseptal infarct (cited on or before 25-DEC-2020) Abnormal ECG When compared with ECG of 25-DEC-2020 12:55, No significant change was found Referred By: Cheyenne Carrillo Electronically Signed By:KAYODE DORANTES
--- NOTE | 2021-02-24 11:36 | ED_ITS ---
HPI - SOB/Dyspnea General Chief Complaint: Extremity Problem Stated Complaint: edema Time Seen by Provider: 02/24/21 11:08 Source: patient Mode of arrival: wheelchair Limitations: no limitations History of Present Illness HPI Narrative: 60 yo female with past medical history of CHF on Lasix (40mg), COPD, JACKSON noncompliant with CPAP, diabetes type 2, history pulmonary hypertension, right heart failure, and hypertension complaints of lower extremity swelling for the last 1 week. The patient tells me she has had a 5 lb weight gain. She is prescribed 40 mg of Lasix daily but if her swelling is worsened she will take an additional dose. She does have some shortness of breath which she tells me may be slightly worsened from her baseline with no associated cough or chest pain or fever. Related Data Home Medications Medication Instructions Recorded Confirmed albuterol sulfate 90 mcg/actuation 2 puff INHALATION Q4H PRN 05/17/20 02/24/21 aerosol inhaler (Ventolin HFA) omeprazole 40 mg capsule,delayed 40 mg PO BEDTIME PRN 05/17/20 02/24/21 release budesonide-formoterol HFA 160 2 puff INHALATION BID 11/06/20 02/24/21 mcg-4.5 mcg/actuation aerosol inhaler (Symbicort) atorvastatin 10 mg tablet 10 mg PO BEDTIME 02/24/21 02/24/21 gabapentin 100 mg capsule 300 mg PO TID 02/24/21 02/24/21 insulin glargine U-300 conc 300 12 unit SUBCUT BEDTIME 02/24/21 02/24/21 unit/mL (1.5 mL) subcutaneous pen (Toandi SoloStar U-300 Insulin) metolazone 2.5 mg tablet 1 tab PO 3XW PRN 02/24/21 02/24/21 Previous Rx's Medication Instructions Recorded cholecalciferol (vitamin D3) 125 125 mcg PO DAILY #90 cap 07/30/20 mcg (5,000 unit) capsule ibuprofen 800 mg tablet 800 mg PO TID PRN #20 tab 12/25/20 montelukast 10 mg tablet 10 mg PO BEDTIME #90 tab 12/25/20 furosemide 40 mg tablet 40 mg PO BID@0900,1800 #180 tab 01/25/21 dulaglutide 3 mg/0.5 mL 3 mg SUBCUT QWEEK 30 Days #2.5 ml 01/29/21 [facility] Allergies Allergy/AdvReac Type Severity Reaction Status Date / Time erythromycin base Allergy Severe GI Verified 12/25/20 12:15 [From E-MYCIN] PAIN-SEVERE carvedilol Allergy Mild upset Verified 12/25/20 12:15 stomach, sweats Review of Systems Review of Systems: Yes all other systems are reviewed and are negative Constitutional: Constitutional: Reports no additional constitutional complaints, Denies body ache(s), Denies chills, Denies fever(s), Denies hea dache(s) and Denies weakness Eyes: Eyes: Reports no additional eye complaints and Denies change in vision ENT: Reports system reviewed and no additional complaints, except as documented, Denies dizziness, Denies headache(s), Denies nasal congestion, Denies nasal discharge and Denies neck pain Cardiovascular: Cardiovascular: Reports no additional cardiovascular complaints, Denies chest pain, Reports leg edema and Reports dyspnea Respiratory: Respiratory: Reports no additional respiratory complaints, Denies cough and Reports dyspnea Gastrointestinal: Gastrointestinal: Reports no additional gastrointestinal complaints, Denies abdominal pain, Denies diarrhea, Denies nausea and Denies vomiting Genitourinary: Genitourinary: Reports no additional female genitourinary complaints and Denies urinary incontinence Musculoskeletal: Musculoskeletal: Reports no additional musculoskeletal complaints, Denies back pain, Denies arthralgias, Denies joint swelling, Denies neck pain, Denies numbness and Denies tingling Integumentary/Breasts: Skin/Breast: Reports system reviewed and no additional complaints, except as docu and Denies rash Neurologic: Reports system reviewed and no additional complaints, except as documented, Denies Abnormal speech present, Denies dizziness, Denies headache(s), Denies numbness, Denies tingling and Denies weakness PMFSH Past Medical History Attestation statement: The following information was validated with the patient. Source: old records reviewed and nursing notes reviewed Medical History (Updated 02/24/21 @ 18:33 by Cheyenne Carrillo NP) BABAK (acute kidney injury) Anxiety CHF exacerbation Chronic right heart failure COPD (chronic obstructive pulmonary disease) Diabetes type 2, uncontrolled Diabetic nephropathy associated with type 2 diabetes mellitus Dyslipidemia Morbid obesity Neuropathy Obstructive sleep apnea on CPAP Pulmonary hypertension Right heart failure Sleep apnea Tachycardia Urge incontinence Surgical History History of carpal tunnel release History of endoscopy Hx of colonoscopy Hx of tubal ligation Status post laparoscopic cholecystectomy Family History Family History Father Myocardial infarction Diabetes mellitus Mother Pancreatic cancer Maternal Grandfather Diabetes mellitus Maternal Aunt Pancreatic cancer Maternal Uncle AAA (abdominal aortic aneurysm) Brother No problems noted. Sister No problems noted. Sister No problems noted. Sister No problems noted. Son No problems noted. Daughter No problems noted. Daughter No problems noted. Social History Social History Household Members: Family Housing: House Housing Other:: Granddaughter Are you a primary care transport nurse to a significant other at home: No Do you presently have visiting nurse or other home services: No Alcohol intake: current Alcohol intake frequency: holidays/special occasions only Patient Tobacco Use Status: Former Tobacco user Years Smoked: 33 Use of substances other than those prescribed or required for medical reasons: No Substance Use Type: Marijuana Advance Directives: No Advance Directives Information Provided: No service: No Current occupational status: unemployed Physical Exam Vital Signs: Vital Signs: Last Vital Signs Temp 97.6 F 02/24/21 15:26 Pulse 92 02/24/21 15:26 Resp 22 H 02/24/21 15:26 BP 114/74 02/24/21 15:26 Pulse Ox 93 02/24/21 15:26 Body Mass Index 45.7 Const: General: cooperative, healthy appearing, comfortable and no acute distress Orientation/consciousness: patient oriented x3 Limitations: no limitations HENMT: Head: Yes normal to inspection Ears: hearing grossly normal bilaterally General nose exam: Normal external nose present Face and sinus: Yes normal facial exam Mouth: Normal oral and palatal mucosa present Throat: Yes posterior oropharynx normal Eyes: General: appearance normal, both eyes and all related structures Pupils: Equal, round and reactive pupils present Neck: Neck: Yes normal visual inspection Chest: Chest palpation & inspection: normal inspection of the chest Resp: Other: Diminished breath sounds bilaterally. Effort & Inspection: paulina l respiratory effort Cardio: Rate: regular rate Rhythm: regular rhythm Peripheral pulses: Pe ripheral pulses 2+ throughout GI: Inspection: Yes normal to inspection Palpation (GI): Soft to palpation and nontender Auscultation: normal bowel sounds Back/Spine/Pelvis: Thoracic/Lumbar Spine: thoracic and lumbar spine normal to inspection Skin: General skin exam: no rashes or lesions noted Neuro: General: patient oriented x3, no focal motor deficits and normal sensation to monofilament Cranial nerves: Yes Equal, round and reactive pupils present Cognition (Neuro): normal cognition Speech: No Abnormal speech present Gait exam (Neuro): Normal gait present Motor exam (neuro): 5/5 motor strength present throughout Extrem: Other: 2+ pitting edema to lower extremities. Distal pulses palpated. No tenderness. General: Yes normal to inspection Course Course Course Narrative: 60-year-old female here with complaints of increasing lower extremity swelling for 1 week with a 5 lb weight gain and acute on chronic shortness of breath. Will need labs, chest x-ray, EKG. Will give dose of 40 mg Lasix IV as clinically patient appears fluid overload. 1330-mild hypokalemia. Will replace orally. Labs show mildly elevated BNP however when compared to previous about the same. Chest x-ray shows mild cardiomegaly with mild prominent perivascular but no congestion. Pending additional labs. 1520-Troponin x2 Delta. Patient will need ambulation trial to determine disposition 1550-patient took approximately 5 steps with oxygen saturation 85% on room air and tachypnea. Will require admission. Call out to medicine to discuss MDM - SOB/Dyspnea Differential Diagnosis Differential diagnosis: Likely acute exacerbation of chronic obstructive airways disease and congestive heart failure Medical Records Attestation: I reviewed the patient's medical records. Lab Data Attestation: I reviewed the patient's lab results. Result diagrams: 02/24/21 11:52 02/24/21 12:42 Labs: Lab Results 02/24/21 02/24/21 02/24/21 Range/Units 11:52 11:52 11:52 WBC 7.5 (4.8-10.8) X10*3/uL RBC 4.72 (4.20-5.50) X10*6/uL Hgb 13.7 (12.0-16.0) g/dl Hct 44.5 (37-47) % MCV 94.3 (80-98) fL MCH 29.0 (27.0-33.0) pg MCHC 30.8 L (31.0-35.0) g/dl RDW 16.4 H (11.0-16.0) % Plt Count 291 (160-400) X10*3/uL MPV 10.2 (9.4-12.3) fL Immature Gran % (Auto) 0.4 (0.0-0.4) % Neut % (Auto) 68.2 (45-73) % Lymph % (Auto) 21.1 (20-40) % [place] % (Auto) 8.4 (2-11) % Eos % (Auto) 1.5 (0-4) % Baso % (Auto) 0.4 (0-2) % Lymph # (Auto) 1.6 (1.2-4.9) X10*3/uL [place] # (Auto) 0.6 (0.1-1.2) X10*3/uL Eos # (Auto) 0.1 (0.0-0.4) X10*3/uL Baso # (Auto) 0.0 (0.0-0.2) X10*3/uL Abs Immat Gran (auto) 0.03 (0.00-0.03) X10*3/uL Absolute Neuts (auto) 5.2 (2.0-8.3) X10*3/uL Absolute Nucleated RBC 0.000 (0.0-0.012) X10*3/uL Nucleated RBC % (auto) 0.0 (0.0-0.2) /100WBC PT 13.2 H (9.9-13.0) SEC INR 1.2 H (0.9-1.1) Sodium (135-145) mmol/L Potassium (3.3-5.1) mmol/L Chloride (96-108) mmol/L Carbon Dioxide (22-29) mmol/L Anion Gap (12-20) BUN (9-16) mg/dL Creatinine (0.5-1.4) mg/dL Estim Creat Clear Calc Estimated GFR Random Glucose (60-115) mg/dL Calcium (8.4-10.2) mg/dL Magnesium (1.6-2.6) mg/dL Total Bilirubin (0.0-1.0) mg/dL Direct Bilirubin (0.0-0.5) mg/dL AST (5-31) U/L ALT (0-31) U/L Alkaline Phosphatase (39-117) U/L Troponin I High Sens 8.3 (<3.5-17.0) ng/L B-Natriuretic Peptide (<100) pg/mL Total Protein (6.5-8.0) g/dL Albumin (3.5-5.0) g/dL 02/24/21 02/24/21 02/24/21 Range/Units 11:52 12:42 14:18 WBC (4.8-10.8) X10*3/uL RBC (4.20-5.50) X10*6/uL Hgb (12.0-16.0) g/dl Hct (37-47) % MCV (80-98) fL MCH (27.0-33.0) pg MCHC (31.0-35.0) g/dl RDW (11.0-16.0) % Plt Count (160-400) X10*3/uL MPV (9.4-12.3) fL Immature Gran % (Auto) (0.0-0.4) % Neut % (Auto) (45-73) % Lymph % (Auto) (20-40) % [place] % (Auto) (2-11) % Eos % (Auto) (0-4) % Baso % (Auto) (0-2) % Lymph # (Auto) (1.2-4.9) X10*3/uL [place] # (Auto) (0.1-1.2) X10*3/uL Eos # (Auto) (0.0-0.4) X10*3/uL Baso # (Auto) (0.0-0.2) X10*3/uL Abs Immat Gran (auto) (0.00-0.03) X10*3/uL Absolute Neuts (auto) (2.0-8.3) X10*3/uL Absolute Nucleated RBC (0.0-0.012) X10*3/uL Nucleated RBC % (auto) (0.0-0.2) /100WBC PT (9.9-13.0) SEC INR (0.9-1.1) Sodium 145 (135-145) mmol/L Potassium 3.1 L (3.3-5.1) mmol/L Chloride 98 (96-108) mmol/L Carbon Dioxide 36 H (22-29) mmol/L Anion Gap 14 (12-20) BUN 14 (9-16) mg/dL Creatinine 0.94 (0.5-1.4) mg/dL Estim Creat Clear Calc 77.6 Estimated GFR > 60 Random Glucose 136 H (60-115) mg/dL Calcium 9.3 D (8.4-10.2) mg/dL Magnesium 1.7 (1.6-2.6) mg/dL Total Bilirubin 1.5 H (0.0-1.0) mg/dL Direct Bilirubin 0.8 H (0.0-0.5) mg/dL AST 13 (5-31) U/L ALT 13 (0-31) U/L Alkaline Phosphatase 152 H D (39-117) U/L Troponin I High Sens 8.5 (<3.5-17.0) ng/L B-Natriuretic Peptide 652 H (<100) pg/mL Total Protein 6.5 (6.5-8.0) g/dL Albumin 3.8 (3.5-5.0) g/dL Imaging Data Chest x-ray: Attestation: I personally reviewed and interpreted this imaging study as follows: Radiologist's impression: [place] [id number] XRay Report Signed Patient: Laura Golden MR#: [id number] : 1960 Acct:[id number] Age/Sex: 60 / F ADM Date: 02/24/21 Loc: .ED Attending Dr: Ordering Physician: Cheyenne Carrillo NP Date of Service: 02/24/21 Procedure(s): XR chest 2V Accession Number(s): [id number] cc: Cheyenne Carrillo NP~ EXAMINATION: XR CHEST CLINICAL INFORMATION: SOB. COMPARISON: None TECHNIQUE: 2 views of the chest were obtained. FINDINGS: The heart size is enlarged with mild increased vascularity. No edema or congestion. The lungs are expanded and clear. No gross bony abnormality seen. XR/XR chest 2V IMPRESSION: Mild cardiomegaly with mild prominent perivascular but no congestion. ECG Data Attestation: I personally reviewed and interpreted this ECG as follows: ECG interpretation date: 02/24/21 ECG interpretation time: 12:21 Interpretation: Sinus rhythm with occasional PVCs with a rate of 87, normal SC, normal QRS, QTC 495. Right bundle branch block unchanged from previous. Discharge Plan Discharge Clinical Impression: CHF (congestive heart failure), Hypoxia Prescriptions: No Action cholecalciferol (vitamin D3) 125 mcg (5,000 unit) capsule 125 mcg PO DAILY Qty: 90 RF: 3 montelukast 10 mg tablet 10 mg PO BEDTIME Qty: 90 RF: 3 furosemide 40 mg tablet 40 mg PO BID@0900,1800 Qty: 180 RF: 5 Trulicity 3 mg/0.5 mL pen injector 3 mg subcut QWEEK 30 Days Qty: 2.5 RF: 11 albuterol sulfate [Ventolin HFA] 90 mcg/actuation Hfa Aerosol Inhaler 2 puff INHALATION Q4H PRN (Reason: Shortness Of Breath) RF: 0 budesonide-formoterol [Symbicort] 160-4.5 mcg/actuation Hfa Aerosol Inhaler 2 puff INHALATION BID RF: 0 ibuprofen 800 mg tablet 800 mg PO TID PRN (Reason: pain) Qty: 20 RF: 0 metolazone 2.5 mg tablet 1 tab PO 3XW PRN (Reason: Edema) RF: 0 atorvastatin 10 mg tablet 10 mg PO BEDTIME RF: 0 gabapentin 100 mg capsule 300 mg PO TID RF: 0 Kwesi SoloStar U-300 Insulin 300 unit/mL (1.5 mL) insulin pen 12 unit subcut BEDTIME RF: 0 omeprazole 40 mg capsule,delayed release(DR/EC) 40 mg PO BEDTIME PRN (Reason: Acid Reflux) RF: 0
[2021-02-24 11:55] LABS: MANUAL DIFF FLAG NO
[2021-02-24] MEDS: Furosemide 40 MG/4 ML VIAL IVPUSH (11:55)
[2021-02-24 12:00] LABS: Basophils Percent Auto 0.4 % (0-2); Eosinophils Absolute Auto 0.1 X10*3/uL (0.0-0.4); Eosinophils Percent Auto 1.5 % (0-4); Hematocrit 44.5 % (37-47); Hemoglobin 13.7 g/dl (12.0-16.0); Imm Gran Abs Auto 0.03 X10*3/uL (0.00-0.03); Imm Gran Pct Auto 0.4 % (0.0-0.4); Lymphocytes Absolute Auto 1.6 X10*3/uL (1.2-4.9); Lymphocytes Percent Auto 21.1 % (20-40); Mean Corpuscular HGB Conc 30.8 g/dl (31.0-35.0); Mean Corpuscular Volume 94.3 fL (80-98); Mean Platelet Volume 10.2 fL (9.4-12.3); Monocytes Absolute Auto 0.6 X10*3/uL (0.1-1.2); Monocytes Percent Auto 8.4 % (2-11); Neutrophils Absolute Auto 5.2 X10*3/uL (2.0-8.3); Neutrophils Percent Auto 68.2 % (45-73); Platelet Count 291 X10*3/uL (160-400); Red Blood Count 4.72 X10*6/uL (4.20-5.50); Red Cell Distribution Width 16.4 % (11.0-16.0); White Blood Count 7.5 X10*3/uL (4.8-10.8)
[2021-02-24 12:03] VITALS: BP 130/78; PULSE 81; RESP 18; TEMP 36.8; O2SAT 95
[2021-02-24 12:07] LABS: INTERNATIONAL NORM RATIO 1.2 (0.9-1.1); Prothrombin Time 13.2 SEC (9.9-13.0)
[2021-02-24 12:31] LABS: B Type Natriuretic Peptide 652 pg/mL (<100)
[2021-02-24 13:19] LABS: Alanine Aminotransferase 13 U/L (0-31); Albumin Level 3.8 g/dL (3.5-5.0); Alkaline Phosphatase 152 U/L (39-117); Anion Gap 14 (12-20); Aspartate Amino Transferase 13 U/L (5-31); Bilirubin Direct 0.8 mg/dL (0.0-0.5); Bilirubin Total 1.5 mg/dL (0.0-1.0); Blood Urea Nitrogen 14 mg/dL (9-16); Calcium 9.3 mg/dL (8.4-10.2); Carbon Dioxide 36 mmol/L (22-29); Chloride 98 mmol/L (96-108); Creatinine Clr Calc Pharmacy 77.6; Estimated Glomerular Filt Rate > 60; Glucose Random 136 mg/dL (60-115); Magnesium 1.7 mg/dL (1.6-2.6); Potassium 3.1 mmol/L (3.3-5.1); Sodium 145 mmol/L (135-145); Total Protein 6.5 g/dL (6.5-8.0)
[2021-02-24] MEDS: Potassium Chloride ER 20 MEQ TAB.ER.PRT 40 MEQ PO (14:12)
[2021-02-24 14:56] LABS: Troponin-I High Sensitivity 8.5 ng/L (<3.5-17.0)
[2021-02-24 15:05] LABS: Troponin-I High Sensitivity 8.3 ng/L (<3.5-17.0)
[2021-02-24 15:26] VITALS: BP 114/74; PULSE 92; RESP 22; TEMP 36.4; O2SAT 93
--- NOTE | 2021-02-24 16:35 | PHA.MEDREC ---
Pharmacy Consult ? Medication Reconciliation Pharmacy has completed the medication reconciliation. Patient states that she has increased or changed her medications as she sees fit. She said she increased her gabapentin to 300 mg TID because she felt like the taper her doctor gave wasn't working. She said that her Toujeo dose was lowered to 10 units at bedtime but she increased it to 12 units because her pharmacy told her she could no longer get her metformin. Provider should follow up with her primary care about her diabetic medications. Eleanor Madden, PharmD [phone]
--- NOTE | 2021-02-24 17:48 | PM.IMHP ---
History of Present Illness Date of Service: 02/24/21 Chief Complaint: SOB 60-year-old woman presented to the ER with complaints of worsening shortness of breath over the last 2 weeks and leg swelling. She does have a history of heart failure with preserved ejection fraction. She reports that she noticed a 5 lb weight gain over the last week she increased her Lasix to 80 mg twice daily and she noticed some difference. Today she had a scheduled echocardiogram and reported that her legs are quite swollen and was told that she should follow-up in the emergency department. Her BNP was noted to be elevated at 652, bilirubin 1.5, potassium 3.1. She denied chest pain, nausea, vomiting, diarrhea. Did report increased shortness of breath especially with exertion but after some rest it does improve. she received a dose of IV Lasix in the ER. She will be admitted for further management and treatment of acute on chronic congestive heart failure. Review of Systems Review of Systems: Denies any recent fever chills or decrease in appetite respiratory denies See HPI cardiovascular denies chest pain gastrointestinal denies any dysphagia abdominal pain nausea vomiting or diarrhea genitourinary denies any dysuria frequency or hematuria musculoskeletal denies any joint pain or swelling neuropsych denies any weakness or seizures all other systems reviewed are negative [facility] Medical History (Updated 02/24/21 @ 18:09 by Sandra Crum NP) BABAK (acute kidney injury) Anxiety CHF exacerbation Chronic right heart failure COPD (chronic obstructive pulmonary disease) Diabetes type 2, uncontrolled Diabetic nephropathy associated with type 2 diabetes mellitus Dyslipidemia Morbid obesity Neuropathy Obstructive sleep apnea on CPAP Pulmonary hypertension Right heart failure Sleep apnea Tachycardia Urge incontinence Family History Father Myocardial infarction Diabetes mellitus Mother Pancreatic cancer Maternal Grandfather Diabetes mellitus Maternal Aunt Pancreatic cancer Maternal Uncle AAA (abdominal aortic aneurysm) Brother No problems noted. Sister No problems noted. Sister No problems noted. Sister No problems noted. Son No problems noted. Daughter No problems noted. Daughter No problems noted. Surgical History History of carpal tunnel release History of endoscopy Hx of colonoscopy Hx of tubal ligation Status post laparoscopic cholecystectomy Social History Household Members: Family Housing: House Housing Other:: Granddaughter Are you a primary managed care liaison to a significant other at home: No Do you presently have visiting nurse or other home services: No Alcohol intake: current Alcohol intake frequency: holidays/special occasions only Patient Tobacco Use Status: Former Tobacco user Years Smoked: 33 Use of substances other than those prescribed or required for medical reasons: No Substance Use Type: Marijuana Advance Directives: No Advance Directives Information Provided: No service: No Current occupational status: unemployed Meds Allergies Allergy/AdvReac Type Severity Reaction Status Date / Time erythromycin base Allergy Severe GI Verified 12/25/20 12:15 [From E-MYCIN] PAIN-SEVERE carvedilol Allergy Mild upset Verified 12/25/20 12:15 stomach, sweats Active Medications: Current Medications Generic Name Dose Route Start Last Admin Trade Name Freq PRN Reason Stop Dose Admin Pharmacy Consult 1 each 02/24/21 15:52 Consult Rx Perform Med Rec MISCELLANE ONCE PRN Consult order Home Medications Medication Instructions Recorded Confirmed Last Taken Type albuterol sulfate 90 mcg/actuation 2 puff INHALATION Q4H PRN 05/17/20 02/24/21 Unknown History aerosol inhaler (Ventolin HFA) omeprazole 40 mg capsule,delayed 40 mg PO BEDTIME PRN 05/17/20 02/24/21 02/22/21 History release budesonide-formoterol HFA 160 2 puff INHALATION BID 11/06/20 02/24/21 11/06/20 History mcg-4.5 mcg/actuation aerosol inhaler (Symbicort) atorvastatin 10 mg tablet 10 mg PO BEDTIME 02/24/21 02/24/21 02/23/21 History gabapentin 100 mg capsule 300 mg PO TID 02/24/21 02/24/21 02/24/21 History insulin glargine U-300 conc 300 12 unit SUBCUT BEDTIME 02/24/21 02/24/21 02/23/21 History unit/mL (1.5 mL) subcutaneous pen (Toujeo SoloStar U-300 Insulin) metolazone 2.5 mg tablet 1 tab PO 3XW PRN 02/24/21 02/24/21 Unknown History Physical Exam Vital Signs and Narrative: Vital Signs: Last Vital Signs Temp 97.6 F 02/24/21 15:26 Pulse 92 02/24/21 15:26 Resp 22 H 02/24/21 15:26 BP 114/74 02/24/21 15:26 Pulse Ox 93 02/24/21 15:26 Body Mass Index 45.7 Appearing in no acute distress head is normocephalic atraumatic eyes pupils are PERRLA sclera is anicteric mouth throat mucous membranes are intact and moist neck is supple no lymphadenopathy, no JVD noted lung sounds rales heart regular rate rhythm, clear S1, S2 +2-3 LE edema positive bowel sounds, abdomen is soft, nontender neuro patient is alert x3, no focal deficits Results Labs CBC and Chem 7: 02/24/21 11:52 02/24/21 12:42 Labs: Laboratory Results - last 24 hr 02/24/21 02/24/21 02/24/21 11:52 11:52 11:52 MCV 94.3 MCH 29.0 MCHC 30.8 L RDW 16.4 H Plt Count 291 MPV 10.2 Immature Gran % (Auto) 0.4 Neut % (Auto) 68.2 Lymph % (Auto) 21.1 [place] % (Auto) 8.4 Eos % (Auto) 1.5 Baso % (Auto) 0.4 Lymph # (Auto) 1.6 [place] # (Auto) 0.6 Eos # (Auto) 0.1 Baso # (Auto) 0.0 Abs Immat Gran (auto) 0.03 Absolute Neuts (auto) 5.2 Absolute Nucleated RBC 0.000 Nucleated RBC % (auto) 0.0 PT 13.2 H INR 1.2 H Anion Gap Estim Creat Clear Calc Estimated GFR Random Glucose Calcium Magnesium Total Bilirubin Direct Bilirubin AST ALT Alkaline Phosphatase Troponin I High Sens 8.3 B-Natriuretic Peptide Total Protein Albumin 02/24/21 02/24/21 02/24/21 11:52 12:42 14:18 MCV MCH MCHC RDW Plt Count MPV Immature Gran % (Auto) Neut % (Auto) Lymph % (Auto) [place] % (Auto) Eos % (Auto) Baso % (Auto) Lymph # (Auto) [place] # (Auto) Eos # (Auto) Baso # (Auto) Abs Immat Gran (auto) Absolute Neuts (auto) Absolute Nucleated RBC Nucleated RBC % (auto) PT INR Anion Gap 14 Estim Creat Clear Calc 77.6 Estimated GFR > 60 Random Glucose 136 H Calcium 9.3 D Magnesium 1.7 Total Bilirubin 1.5 H Direct Bilirubin 0.8 H AST 13 ALT 13 Alkaline Phosphatase 152 H D Troponin I High Sens 8.5 B-Natriuretic Peptide 652 H Total Protein 6.5 Albumin 3.8 Imaging Radiologist's Impressions: Impressions Chest X-Ray 02/24/21 11:18 IMPRESSION: Mild cardiomegaly with mild prominent perivascular but no congestion. Assessment and Plan (1) Chronic right heart failure: Status: Acute 60-year-old woman admitted with acute on chronic congestive heart failure Heart failure with preserved ejection fraction. Echocardiogram this morning showed preserved EF with severe pulmonary hypertension Cardiology to follow IV Lasix Daily weights Strict intake and output Monitor on telemetry Hyperbilirubinemia. Likely secondary to congestion from heart failure Trend Hypokalemia. Mild. Repleted in the ER DVT prophylaxis Lovenox Quality Stroke Does the patient have a stroke diagnosis?: No VTE Prior VTE?: No VTE Risk Level:: Medical - moderate - high VTE Device Contraindication: Treatment Not Tolerated VTE Drug Contraindication: N/A - Med Ordered
[2021-02-24 19:55] VITALS: BP 129/88; PULSE 90; RESP 18; TEMP 36.9; O2SAT 91
[2021-02-24 20:30] LABS: COVID-19 Test Negative (Negative); IDNOW Serial# 9DD0AD1C
[2021-02-24] MEDS: Gabapentin 300 MG CAPSULE PO (22:46)
[2021-02-24] MEDS: Insulin Glargine,Hum.rec.anlog 100 UNIT/ML 10 ML VIAL 10 UNIT SUBCUT (22:46)
[2021-02-24] MEDS: Atorvastatin Calcium 10 MG TABLET PO (22:46)
[2021-02-24] MEDS: Montelukast Sodium 10 MG TABLET PO (22:46)
[2021-02-25] VITALS (7 sets, daily range): BP systolic 109–145; BP diastolic 58–91; PULSE 79–101; RESP 18–20; TEMP 36.1–37.2; O2SAT 90–93; BMI 46.6
--- NOTE | 2021-02-25 00:23 | PC.NURSE ---
Recliner in room for pt's comfort. pt unable to sleep in stretcher. pt awaiting for room assignment.
--- NOTE | 2021-02-25 01:26 | PC.NURSE ---
report to CHILO Greco
--- NOTE | 2021-02-25 01:38 | PC.NURSE ---
pt to floor in w/c. pt to floor on monitor in nad.
[2021-02-25 06:33] LABS: MANUAL DIFF FLAG NO
[2021-02-25 06:46] LABS: Basophils Percent Auto 0.3 % (0-2); Eosinophils Absolute Auto 0.1 X10*3/uL (0.0-0.4); Eosinophils Percent Auto 1.2 % (0-4); Hematocrit 41.2 % (37-47); Hemoglobin 12.6 g/dl (12.0-16.0); Imm Gran Abs Auto 0.04 X10*3/uL (0.00-0.03); Imm Gran Pct Auto 0.6 % (0.0-0.4); Lymphocytes Absolute Auto 1.8 X10*3/uL (1.2-4.9); Lymphocytes Percent Auto 25.8 % (20-40); Mean Corpuscular HGB Conc 30.6 g/dl (31.0-35.0); Mean Corpuscular Hemoglobin 28.6 pg (27.0-33.0); Mean Corpuscular Volume 93.4 fL (80-98); Mean Platelet Volume 10.5 fL (9.4-12.3); Monocytes Absolute Auto 0.7 X10*3/uL (0.1-1.2); Monocytes Percent Auto 9.6 % (2-11); Neutrophils Absolute Auto 4.3 X10*3/uL (2.0-8.3); Neutrophils Percent Auto 62.5 % (45-73); Platelet Count 260 X10*3/uL (160-400); Red Blood Count 4.41 X10*6/uL (4.20-5.50); Red Cell Distribution Width 16.4 % (11.0-16.0); White Blood Count 6.9 X10*3/uL (4.8-10.8)
[2021-02-25 06:58] LABS: Glucose, Whole Blood 148 mg/dL (60-115)
[2021-02-25 07:08] LABS: B Type Natriuretic Peptide 688 pg/mL (<100)
[2021-02-25 07:35] LABS: Anion Gap 16 (12-20); Blood Urea Nitrogen 17 mg/dL (9-16); Calcium 8.7 mg/dL (8.4-10.2); Carbon Dioxide 31 mmol/L (22-29); Chloride 99 mmol/L (96-108); Creatinine Clr Calc Pharmacy 78.5; Estimated Glomerular Filt Rate > 60; Glucose Random 158 mg/dL (60-115); Potassium 3.1 mmol/L (3.3-5.1); Sodium 143 mmol/L (135-145)
[2021-02-25] MEDS: Fluticasone/Vilanterol 200/25 BLST.W.DEV 1 PUFF INHALE (08:00)
[2021-02-25] MEDS: Furosemide 40 MG/4 ML VIAL IVPUSH ×2 (09:47→18:19)
[2021-02-25] MEDS: Potassium Chloride ER 20 MEQ TAB.ER.PRT 40 MEQ PO (09:49)
[2021-02-25] MEDS: 0.9 % Sodium Chloride Flush 3 ML SYRINGE IVFLUSH ×2 (09:49→14:59)
[2021-02-25] MEDS: Gabapentin 300 MG CAPSULE PO ×3 (09:51→22:30)
--- NOTE | 2021-02-25 10:02 | PM.CNCAR ---
History of Present Illness History of Present Illness Date of Service: 02/25/21 Requesting physician: Sandra Crum Chief complaint: CHF Narrative: [age] year female with known congestive heart failure, COPD, obstructive sleep apnea and severe pulmonary hypertension. She is presenting for lower extremity edema and shortness of breath. She has progressive lower extremity edema which she noticed over the last few weeks. For 1 week she increase her Lasix to 80 mg twice a day but continued to have edema and weight gain. With these symptoms she presented to [facility]. She had recent echocardiogram which showed severe pulmonary hypertension with RV pressure overload. She said she was taking extra dose of Lasix but was not making much urine. He has been started on IV diuretics at this stage. She was compliant with medications and was not taking extra salt in her diet. Review of Systems Review of Systems: Edema Yes all other systems are reviewed and are negative [facility] Past Medical History Medical History (Updated 02/24/21 @ 18:33 by Cheyenne Carrillo NP) BABAK (acute kidney injury) Anxiety CHF exacerbation Chronic right heart failure COPD (chronic obstructive pulmonary disease) Diabetes type 2, uncontrolled Diabetic nephropathy associated with type 2 diabetes mellitus Dyslipidemia Morbid obesity Neuropathy Obstructive sleep apnea on CPAP Pulmonary hypertension Right heart failure Sleep apnea Tachycardia Urge incontinence Family History Family History Father Myocardial infarction Diabetes mellitus Mother Pancreatic cancer Maternal Grandfather Diabetes mellitus Maternal Aunt Pancreatic cancer Maternal Uncle AAA (abdominal aortic aneurysm) Brother No problems noted. Sister No problems noted. Sister No problems noted. Sister No problems noted. Son No problems noted. Daughter No problems noted. Daughter No problems noted. Surgical History Surgical History History of carpal tunnel release History of endoscopy Hx of colonoscopy Hx of tubal ligation Status post laparoscopic cholecystectomy Social History Social History Household Members: Family Household Members Other:: Granddaughter Housing: House Housing Other:: Granddaughter Are you a primary point of care specialist to a significant other at home: No Do you presently have visiting nurse or other home services: No Alcohol intake: current Alcohol intake frequency: holidays/special occasions only Patient Tobacco Use Status: Former Tobacco user Years Smoked: 33 Use of substances other than those prescribed or required for medical reasons: No Substance Use Type: Marijuana Currently Displaying Signs/Symptoms of Drug Intoxication Withdrawal: No Have you been hit, kicked, punched, or otherwise hurt by someone within the past year? If so, by whom?: No Do you feel safe in your current relationship?: No Current Relationship Is there a partner from a previous relationship who is making you feel unsafe now?: No Are you made to feel afraid or neglected: No Advance Directives: No Advance Directives Information Provided: No Do you have thoughts of harming others: None Do you have a plan to hurt others: No Plan Recently lost weight without trying: No Eating poorly because of decreased appetite: No Nutrition Risks: No Nutritional Risk Patient : No : No Poor oral hygiene: No service: No Current occupational status: unemployed Meds Allergies Allergy/AdvReac Type Severity Reaction Status Date / Time erythromycin base Allergy Severe GI Verified 12/25/20 12:15 [From E-MYCIN] PAIN-SEVERE carvedilol Allergy Mild upset Verified 12/25/20 12:15 stomach, sweats Active Medications: Current Medications Generic Name Dose Route Start Last Admin Trade Name Freq PRN Reason Stop Dose Admin Acetaminophen 650 mg 02/24/21 18:22 Acetaminophen 325 Mg Tablet PO Q6H PRN Pain, Mild (Pain Scale 1-3) Albuterol Sulfate 2 puff 02/24/21 17:50 Albuterol Sulfate 90 Mcg 8 Gm Inhaler INHALE Q4H PRN Shortness Of Breath Atorvastatin Calcium 10 mg 02/24/21 21:00 02/24/21 22:46 Atorvastatin Calcium 10 Mg Tablet PO 10 mg BEDTIME SARAHI Administration Dextrose 25 gm 02/25/21 01:56 Dextrose 50 % 25 Gm/50 Ml Vial IVPUSH Q15M PRN per Hypoglycemia Standing Ord. Protocol Fluticasone/Vilanterol 1 puff 02/25/21 08:00 02/25/21 08:00 Fluticasone/Vilanterol 200/25 Blst.W.Dev INHALE 1 puff RDAILY SARAHI Administration Furosemide 40 mg 02/25/21 09:00 02/25/21 09:47 Furosemide 40 Mg/4 Ml Vial IVPUSH 40 mg BID@0900,1800 SARAHI Administration Protocol Gabapentin 300 mg 02/24/21 21:00 08/24/21 09:51 Gabapentin 300 Mg Capsule PO 300 mg TID SARAHI Administration Glucose 15 gm 02/25/21 01:56 Glucose Gel 15 Gm Gel..Gram. PO Q15M PRN per Hypoglycemia Standing Ord. Protocol Insulin Glargine 10 unit 02/24/21 21:00 02/24/21 22:46 Insulin Glargine,Hum.Rec.Anlog 100 Unit/Ml 10 Ml Vial SUBCUT 10 unit BEDTIME SARAHI Administration Insulin Human Lispro 0 unit 02/25/21 07:30 02/25/21 09:50 Insulin Lispro 100 Unit/Ml 3 Ml Vial SUBCUT Not Given QIDACHS [facility] Protocol Metolazone 2.5 mg 02/24/21 17:50 Metolazone 2.5 Mg Tablet PO MoWeFr@0900 PRN Edema Montelukast Sodium 10 mg 02/24/21 21:00 02/24/21 22:46 Montelukast Sodium 10 Mg Tablet PO 10 mg BEDTIME SARAHI Administration Omeprazole 40 mg 02/24/21 17:50 Omeprazole 40 Mg Capsule. PO BEDTIME PRN Acid Reflux Ondansetron HCl 4 mg 02/24/21 18:22 Ondansetron Hcl 4 Mg/2 Ml Vial IVPUSH Q8H PRN Nausea and Vomiting Pharmacy Consult 1 each 02/24/21 15:52 Consult Rx Perform Med Rec MISCELLANE ONCE PRN Consult order Sodium Chloride 3 ml 02/25/21 00:00 02/25/21 09:49 0.9 % Sodium Chloride Flush 3 Ml Syringe IVFLUSH 3 ml QSHIFT [facility] Administration Home Medications Medication Instructions Recorded Confirmed Last Taken Type albuterol sulfate 90 mcg/actuation 2 puff INHALATION Q4H PRN 05/17/20 02/24/21 Unknown History aerosol inhaler (Ventolin HFA) omeprazole 40 mg capsule,delayed 40 mg PO BEDTIME PRN 05/17/20 02/24/21 02/22/21 History release budesonide-formoterol HFA 160 2 puff INHALATION BID 11/06/20 02/24/21 11/06/20 History mcg-4.5 mcg/actuation aerosol inhaler (Symbicort) atorvastatin 10 mg tablet 10 mg PO BEDTIME 02/24/21 02/24/21 02/23/21 History gabapentin 100 mg capsule 300 mg PO TID 02/24/21 02/24/21 02/24/21 History insulin glargine U-300 conc 300 12 unit SUBCUT BEDTIME 02/24/21 02/24/21 02/23/21 History unit/mL (1.5 mL) subcutaneous pen (Toujeo SoloStar U-300 Insulin) metolazone 2.5 mg tablet 1 tab PO 3XW PRN 02/24/21 02/24/21 Unknown History Physical Exam Vital Signs: Vital Signs: Last Vital Signs Temp 98 F 02/25/21 06:52 Pulse 79 02/25/21 06:52 Resp 20 02/25/21 06:52 BP 131/83 02/25/21 06:52 Pulse Ox 90 L 02/25/21 06:52 Body Mass Index 45.7 GENERAL APPEARANCE: in no acute distress, pleasant. NECK: no carotid bruit, + jugular venous distention. SKIN: no suspicious lesions, warm and dry. HEART: no murmurs, regular rate and rhythm. LUNGS: Few crackles at bases. ABDOMEN: soft, nontender. EXTREMITIES: 2+ edema. PERIPHERAL PULSES: equal. NEUROLOGIC: No gross deficits, AAO X 3 Results Labs and Meds Result diagrams: 02/25/21 05:21 02/25/21 05:21 Lab results: Laboratory Results - last 24 hr 02/24/21 02/24/21 02/24/21 11:52 11:52 11:52 WBC 7.5 RBC 4.72 Hgb 13.7 Hct 44.5 MCV 94.3 MCH 29.0 MCHC 30.8 L RDW 16.4 H Plt Count 291 MPV 10.2 Immature Gran % (Auto) 0.4 Neut % (Auto) 68.2 Lymph % (Auto) 21.1 Emanuel % (Auto) 8.4 Eos % (Auto) 1.5 Baso % (Auto) 0.4 Lymph # (Auto) 1.6 Emanuel # (Auto) 0.6 Eos # (Auto) 0.1 Baso # (Auto) 0.0 Abs Immat Gran (auto) 0.03 Absolute Neuts (auto) 5.2 Absolute Nucleated RBC 0.000 Nucleated RBC % (auto) 0.0 PT 13.2 H INR 1.2 H Sodium Potassium Chloride Carbon Dioxide Anion Gap BUN Creatinine Estim Creat Clear Calc Estimated GFR POC Glucose Random Glucose Calcium Magnesium Total Bilirubin Direct Bilirubin AST ALT Alkaline Phosphatase Troponin I High Sens 8.3 B-Natriuretic Peptide Total Protein Albumin COVID-19 (TIM) [employer]19 [employer] 02/24/21 02/24/21 02/24/21 11:52 12:42 14:18 WBC RBC Hgb Hct MCV MCH MCHC RDW Plt Count MPV Immature Gran % (Auto) Neut % (Auto) Lymph % (Auto) Emanuel % (Auto) Eos % (Auto) Baso % (Auto) Lymph # (Auto) Emanuel # (Auto) Eos # (Auto) Baso # (Auto) Abs Immat Gran (auto) Absolute Neuts (auto) Absolute Nucleated RBC Nucleated RBC % (auto) PT INR Sodium 145 Potassium 3.1 L Chloride 98 Carbon Dioxide 36 H Anion Gap 14 BUN 14 Creatinine 0.94 Estim Creat Clear Calc 77.6 Estimated GFR > 60 POC Glucose Random Glucose 136 H Calcium 9.3 D Magnesium 1.7 Total Bilirubin 1.5 H Direct Bilirubin 0.8 H AST 13 ALT 13 Alkaline Phosphatase 152 H D Troponin I High Sens 8.5 B-Natriuretic Peptide 652 H Total Protein 6.5 Albumin 3.8 COVID-19 (TIM) COVID-19 [employer] 02/24/21 02/25/21 02/25/21 19:58 05:21 05:21 WBC 6.9 RBC 4.41 Hgb 12.6 Hct 41.2 MCV 93.4 MCH 28.6 MCHC 30.6 L RDW 16.4 H Plt Count 260 MPV 10.5 Immature Gran % (Auto) 0.6 H Neut % (Auto) 62.5 Lymph % (Auto) 25.8 Emanuel % (Auto) 9.6 Eos % (Auto) 1.2 Baso % (Auto) 0.3 Lymph # (Auto) 1.8 Emanuel # (Auto) 0.7 Eos # (Auto) 0.1 Baso # (Auto) 0.0 Abs Immat Gran (auto) 0.04 H Absolute Neuts (auto) 4.3 Absolute Nucleated RBC 0.000 Nucleated RBC % (auto) 0.0 PT INR Sodium Potassium Chloride Carbon Dioxide Anion Gap BUN Creatinine Estim Creat Clear Calc Estimated GFR POC Glucose Random Glucose Calcium Magnesium Total Bilirubin Direct Bilirubin AST ALT Alkaline Phosphatase Troponin I High Sens B-Natriuretic Peptide 688 H Total Protein Albumin COVID-19 (TIM) Negative COVID-19 Clin Com See Note 02/25/21 02/25/21 05:21 06:54 WBC RBC Hgb Hct MCV MCH MCHC RDW Plt Count MPV Immature Gran % (Auto) Neut % (Auto) Lymph % (Auto) Emanuel % (Auto) Eos % (Auto) Baso % (Auto) Lymph # (Auto) Emanuel # (Auto) Eos # (Auto) Baso # (Auto) Abs Immat Gran (auto) Absolute Neuts (auto) Absolute Nucleated RBC Nucleated RBC % (auto) PT INR Sodium 143 Potassium 3.1 L Chloride 99 Carbon Dioxide 31 H Anion Gap 16 BUN 17 H Creatinine 0.93 Estim Creat Clear Calc 78.5 Estimated GFR > 60 POC Glucose 148 H Random Glucose 158 H Calcium 8.7 D Magnesium Total Bilirubin Direct Bilirubin AST ALT Alkaline Phosphatase Troponin I High Sens B-Natriuretic Peptide Total Protein Albumin COVID-19 (TIM) COVID-19 Clin Com Imaging Radiologist's impression: Impressions Chest X-Ray 02/24/21 11:18 IMPRESSION: Mild cardiomegaly with mild prominent perivascular but no congestion. Assessment and Plan (1) CHF (congestive heart failure): Status: Acute (2) Chronic right heart failure: Status: Acute 60-year-old female with a history of congestive heart failure. She has severe pulmonary hypertension which is thought to be due to obstructive sleep apnea. She has been somewhat compliant with CPAP but not regularly using it. She is volume overloaded at this stage. Agree with IV diuretics. I think we should aim for 1.5-2 L negative in the next 24 hours. If she is not maintaining good urine output then the Lasix dose has to be increased. She is anxious hypoxic when she walks. Consider involving pulmonology to see if she should be on continuous oxygen. Hypoxia will need to more pulmonary vasoconstriction and high pulmonary pressures. Thank you for allowing me to participate in the care of your patient. Please feel free to contact me if you have any questions. Procedures Date of Service Date of Service: 02/25/21
--- NOTE | 2021-02-25 11:04 | MHC.CM.PN ---
Female 60 DX HF She lives with family. She uses a cane/walker PRN. She is independent with ADLs. A HCP has been documented today. DP home no services family transport. If VNA is ordered, preference is [facility]. CM will follow.
[2021-02-25 11:35] LABS: Glucose, Whole Blood 199 mg/dL (60-115)
--- NOTE | 2021-02-25 11:49 | P.PNIM_ITS ---
Progress Note: A&P (1) CHF (congestive heart failure): Status: Acute Assessment and Plan: 60-year-old woman admitted with acute on chronic congestive heart failure Heart failure with preserved ejection fraction.? Echocardiogram this morning showed preserved EF with severe pulmonary hypertension Cardiology to follow Continue IV Lasix -9L Daily weights Strict intake and output Monitor on telemetry Constipation miralax colace Hyperbilirubinemia.? Likely secondary to congestion from heart failure Trend Hypokalemia.? Mild. Repleted follow BMP DVT prophylaxis Lovenox Subjective Subjective Date of Service: 02/25/21 Interval History: Follow up CHF Still with some mild sob with exertion Physical Exam Vital Signs: Vital Signs: Last Vital Signs Temp 97 F 02/25/21 11:19 Pulse 101 H 02/25/21 11:19 Resp 18 02/25/21 11:19 BP 140/91 H 02/25/21 11:19 Pulse Ox 90 L 02/25/21 11:19 Body Mass Index 45.7 Appearing in no acute distress lung sounds mild rales heart regular rate rhythm, clear S1, S2 positive bowel sounds, abdomen is soft, nontender neuro patient is alert x3, no focal deficits Objective Data Current Medications Generic Name Dose Route Start Last Admin Trade Name Freq PRN Reason Stop Dose Admin Acetaminophen 650 mg 02/24/21 18:22 Acetaminophen 325 Mg Tablet PO Q6H PRN Pain, Mild (Pain Scale 1-3) Albuterol Sulfate 2 puff 02/24/21 17:50 Albuterol Sulfate 90 Mcg 8 Gm Inhaler INHALE Q4H PRN Shortness Of Breath Atorvastatin Calcium 10 mg 02/24/21 21:00 02/24/21 22:46 Atorvastatin Calcium 10 Mg Tablet PO 10 mg BEDTIME SARAHI Administration Dextrose 25 gm 02/25/21 01:56 Dextrose 50 % 25 Gm/50 Ml Vial IVPUSH Q15M PRN per Hypoglycemia Standing Ord. Protocol Fluticasone/Vilanterol 1 puff 02/25/21 08:00 02/25/21 08:00 Fluticasone/Vilanterol 200/25 Blst.W.Dev INHALE 1 puff RDAILY SARAHI Administration Furosemide 40 mg 02/25/21 09:00 02/25/21 09:47 Furosemide 40 Mg/4 Ml Vial IVPUSH 40 mg BID@0900,1800 SARAHI Administration Protocol Gabapentin 300 mg 02/24/21 21:00 02/25/21 09:51 Gabapentin 300 Mg Capsule PO 300 mg TID SARAHI Administration Glucose 15 gm 02/25/21 01:56 Glucose Gel 15 Gm Gel..Gram. PO Q15M PRN per Hypoglycemia Standing Ord. Protocol Insulin Glargine 10 unit 02/24/21 21:00 02/24/21 22:46 Insulin Glargine,Hum.Rec.Anlog 100 Unit/Ml 10 Ml Vial SUBCUT 10 unit BEDTIME SARAHI Administration Insulin Human Lispro 0 unit 02/25/21 07:30 02/25/21 09:50 Insulin Lispro 100 Unit/Ml 3 Ml Vial SUBCUT Not Given QIDACHS [facility] Protocol Metolazone 2.5 mg 02/24/21 17:50 Metolazone 2.5 Mg Tablet PO MoWeFr@0900 PRN Edema Montelukast Sodium 10 mg 02/24/21 21:00 02/24/21 22:46 Montelukast Sodium 10 Mg Tablet PO 10 mg BEDTIME SARAHI Administration Omeprazole 40 mg 02/24/21 17:50 Omeprazole 40 Mg Capsule.Dr PO BEDTIME PRN Acid Reflux Ondansetron HCl 4 mg 02/24/21 18:22 Ondansetron Hcl 4 Mg/2 Ml Vial IVPUSH Q8H PRN Nausea and Vomiting Pharmacy Consult 1 each 02/24/21 15:52 Consult Rx Perform Med Rec MISCELLANE ONCE PRN Consult order Sodium Chloride 3 ml 02/25/21 00:00 02/25/21 09:49 0.9 % Sodium Chloride Flush 3 Ml Syringe IVFLUSH 3 ml QSHIFT [facility] Administration Labs CBC & Chem 7: 02/25/21 05:21 02/25/21 05:21 Labs: Laboratory Results - last 24 hr 02/24/21 02/24/21 02/24/21 11:52 11:52 11:52 MCV 94.3 MCH 29.0 MCHC 30.8 L RDW 16.4 H Plt Count 291 MPV 10.2 Immature Gran % (Auto) 0.4 Neut % (Auto) 68.2 Lymph % (Auto) 21.1 Beaver % (Auto) 8.4 Eos % (Auto) 1.5 Baso % (Auto) 0.4 Lymph # (Auto) 1.6 Beaver # (Auto) 0.6 Eos # (Auto) 0.1 Baso # (Auto) 0.0 Abs Immat Gran (auto) 0.03 Absolute Neuts (auto) 5.2 Absolute Nucleated RBC 0.000 Nucleated RBC % (auto) 0.0 PT 13.2 H INR 1.2 H Anion Gap Estim Creat Clear Calc Estimated GFR POC Glucose Random Glucose Calcium Magnesium Total Bilirubin Direct Bilirubin AST ALT Alkaline Phosphatase Troponin I High Sens 8.3 B-Natriuretic Peptide Total Protein Albumin COVID-19 (TIM) COVID-19 Clin Com 02/24/21 02/24/21 02/24/21 11:52 12:42 14:18 MCV MCH MCHC RDW Plt Count MPV Immature Gran % (Auto) Neut % (Auto) Lymph % (Auto) Beaver % (Auto) Eos % (Auto) Baso % (Auto) Lymph # (Auto) Beaver # (Auto) Eos # (Auto) Baso # (Auto) Abs Immat Gran (auto) Absolute Neuts (auto) Absolute Nucleated RBC Nucleated RBC % (auto) PT INR Anion Gap 14 Estim Creat Clear Calc 77.6 Estimated GFR > 60 POC Glucose Random Glucose 136 H Calcium 9.3 D Magnesium 1.7 Total Bilirubin 1.5 H Direct Bilirubin 0.8 H AST 13 ALT 13 Alkaline Phosphatase 152 H D Troponin I High Sens 8.5 B-Natriuretic Peptide 652 H Total Protein 6.5 Albumin 3.8 COVID-19 (TIM) COVID-19 [employer] 02/24/21 02/25/21 02/25/21 19:58 05:21 05:21 MCV 93.4 MCH 28.6 MCHC 30.6 L RDW 16.4 H Plt Count 260 MPV 10.5 Immature Gran % (Auto) 0.6 H Neut % (Auto) 62.5 Lymph % (Auto) 25.8 Beaver % (Auto) 9.6 Eos % (Auto) 1.2 Baso % (Auto) 0.3 Lymph # (Auto) 1.8 Beaver # (Auto) 0.7 Eos # (Auto) 0.1 Baso # (Auto) 0.0 Abs Immat Gran (auto) 0.04 H Absolute Neuts (auto) 4.3 Absolute Nucleated RBC 0.000 Nucleated RBC % (auto) 0.0 PT INR Anion Gap Estim Creat Clear Calc Estimated GFR POC Glucose Random Glucose Calcium Magnesium Total Bilirubin Direct Bilirubin AST ALT Alkaline Phosphatase Troponin I High Sens B-Natriuretic Peptide 688 H Total Protein Albumin COVID-19 (TIM) Negative COVID-19 Clin Com See Note 02/25/21 02/25/21 02/25/21 05:21 06:54 11:26 MCV MCH MCHC RDW Plt Count MPV Immature Gran % (Auto) Neut % (Auto) Lymph % (Auto) Beaver % (Auto) Eos % (Auto) Baso % (Auto) Lymph # (Auto) Beaver # (Auto) Eos # (Auto) Baso # (Auto) Abs Immat Gran (auto) Absolute Neuts (auto) Absolute Nucleated RBC Nucleated RBC % (auto) PT INR Anion Gap 16 Estim Creat Clear Calc 78.5 Estimated GFR > 60 POC Glucose 148 H 199 H Random Glucose 158 H Calcium 8.7 D Magnesium Total Bilirubin Direct Bilirubin AST ALT Alkaline Phosphatase Troponin I High Sens B-Natriuretic Peptide Total Protein Albumin COVID-19 (TIM) COVID-19 Clin Com Quality Stroke Does the patient have a stroke diagnosis?: No VTE Prior VTE?: No VTE Risk Level:: Medical - moderate - high VTE Device Contraindication: Treatment Not Tolerated VTE Drug Contraindication: N/A - Med Ordered
[2021-02-25] MEDS: Insulin Lispro 100 UNIT/ML 3 ML VIAL SUBCUT ×2 (12:47→22:31)
[2021-02-25] MEDS: polyethylene glycoL 3350 17 GM POWD.PACK PO (12:48)
--- NOTE | 2021-02-25 14:00 | MHC.CLN ---
NUTRITION/DIET CHANGED DIET TO DIABETIC 2000 KCAL, 2 GRAM SODIUM DUE TO DX DM AND CHF.
[2021-02-25] MEDS: Enoxaparin Sodium 40 MG/0.4 ML SYRINGE SUBCUT (15:14)
[2021-02-25 16:24] LABS: Glucose, Whole Blood 127 mg/dL (60-115)
[2021-02-25 20:50] LABS: Glucose, Whole Blood 187 mg/dL (60-115)
[2021-02-25] MEDS: Atorvastatin Calcium 10 MG TABLET PO (22:30)
[2021-02-25] MEDS: Montelukast Sodium 10 MG TABLET PO (22:30)
[2021-02-25] MEDS: Docusate Sodium 100 MG CAPSULE PO (22:30)
[2021-02-25] MEDS: Insulin Glargine,Hum.rec.anlog 100 UNIT/ML 10 ML VIAL 10 UNIT SUBCUT (22:31)
[2021-02-26] VITALS (7 sets, daily range): BP systolic 103–127; BP diastolic 62–82; PULSE 76–103; RESP 18–20; TEMP 36.1–37.1; O2SAT 92–98; BMI 46.5
[2021-02-26] MEDS: 0.9 % Sodium Chloride Flush 3 ML SYRINGE IVFLUSH ×4 (00:12→23:56)
[2021-02-26 07:08] LABS: B Type Natriuretic Peptide 709 pg/mL (<100)
[2021-02-26 07:11] LABS: Anion Gap 14 (12-20); Blood Urea Nitrogen 17 mg/dL (9-16); Calcium 8.7 mg/dL (8.4-10.2); Carbon Dioxide 34 mmol/L (22-29); Chloride 98 mmol/L (96-108); Creatinine Clr Calc Pharmacy 78.5; Estimated Glomerular Filt Rate > 60; Glucose Random 116 mg/dL (60-115); Potassium 3.3 mmol/L (3.3-5.1); Sodium 143 mmol/L (135-145)
[2021-02-26 07:22] LABS: Glucose, Whole Blood 127 mg/dL (60-115)
[2021-02-26] MEDS: Fluticasone/Vilanterol 200/25 BLST.W.DEV 1 PUFF INHALE (08:52)
[2021-02-26] MEDS: Furosemide 40 MG/4 ML VIAL IVPUSH ×2 (09:05→13:18)
[2021-02-26] MEDS: Potassium Chloride ER 20 MEQ TAB.ER.PRT 40 MEQ PO (09:07)
[2021-02-26] MEDS: Docusate Sodium 100 MG CAPSULE PO (09:08)
[2021-02-26] MEDS: Gabapentin 300 MG CAPSULE PO ×3 (09:08→20:19)
--- NOTE | 2021-02-26 09:56 | HO.PM.IMPN ---
Subjective Subjective Date of Service: 02/26/21 Interval History: seen and examined this AM still SOB and doesnt feel well reports leg pain due to edema / neuropathy Review of Systems General - no fevers or chills Cardiovascular - no chest pain, +leg edema Respiratory - +SOB Abdominal- no abdominal pain, nausea, vomiting, diarrhea Physical Exam Vital Signs: Vital Signs: Last Vital Signs Temp 97.5 F 02/26/21 07:05 Pulse 76 02/26/21 07:05 Resp 19 02/26/21 07:05 BP 121/82 02/26/21 07:05 Pulse Ox 95 02/26/21 07:05 Body Mass Index 46.5 Const: Other: General - no acute distress, appears comfortable Cardiovascular - regular rate and rhythm, S1-S2, 2+ pitting edema Lungs - diminished sounds Abdomen - soft, nontender, no rebound or guarding Extremities - no edema bilaterally Neuro - awake and alert, no focal deficits Objective Data Current Medications Generic Name Dose Route Start Last Admin Trade Name Freq PRN Reason Stop Dose Admin Acetaminophen 650 mg 02/24/21 18:22 Acetaminophen 325 Mg Tablet PO Q6H PRN Pain, Mild (Pain Scale 1-3) Albuterol Sulfate 2 puff 02/24/21 17:50 Albuterol Sulfate 90 Mcg 8 Gm Inhaler INHALE Q4H PRN Shortness Of Breath Atorvastatin Calcium 10 mg 02/24/21 21:00 02/25/21 22:30 Atorvastatin Calcium 10 Mg Tablet PO 10 mg BEDTIME SARAHI Administration Dextrose 25 gm 02/25/21 01:56 Dextrose 50 % 25 Gm/50 Ml Vial IVPUSH Q15M PRN per Hypoglycemia Standing Ord. Protocol Docusate Sodium 100 mg 02/25/21 21:00 02/26/21 09:08 Docusate Sodium 100 Mg Capsule PO 100 mg BID SARAHI Administration Enoxaparin Sodium 40 mg 02/25/21 15:00 02/25/21 15:14 Enoxaparin Sodium 40 Mg/0.4 Ml Syringe SUBCUT 40 mg Q24H SARAHI Administration Fluticasone/Vilanterol 1 puff 02/25/21 08:00 02/26/21 08:52 Fluticasone/Vilanterol 200/25 Blst.W.Dev INHALE 1 puff RDAILY SARAHI Administration Furosemide 40 mg 02/26/21 12:00 Furosemide 40 Mg/4 Ml Vial IVPUSH 02/26/21 12:01 ONCE ONE Protocol Furosemide 80 mg 02/26/21 18:00 Furosemide 40 Mg/4 Ml Vial IVPUSH BID@0900,1800 [facility] Protocol Gabapentin 300 mg 02/24/21 21:00 02/26/21 09:08 Gabapentin 300 Mg Capsule PO 300 mg TID SARAHI Administration Glucose 15 gm 02/25/21 01:56 Glucose Gel 15 Gm Gel..Gram. PO Q15M PRN per Hypoglycemia Standing Ord. Protocol Insulin Glargine 10 unit 02/24/21 21:00 02/25/21 22:31 Insulin Glargine,Hum.Rec.Anlog 100 Unit/Ml 10 Ml Vial SUBCUT 10 unit BEDTIME [facility] Administration Insulin Human Lispro 0 unit 02/25/21 07:30 02/26/21 08:51 Insulin Lispro 100 Unit/Ml 3 Ml Vial SUBCUT Not Given QIDACHS [facility] Protocol Metolazone 2.5 mg 02/24/21 17:50 Metolazone 2.5 Mg Tablet PO MoWeFr@0900 PRN Edema Montelukast Sodium 10 mg 02/24/21 21:00 02/25/21 22:30 Montelukast Sodium 10 Mg Tablet PO 10 mg BEDTIME SARAHI Administration Omeprazole 40 mg 02/24/21 17:50 Omeprazole 40 Mg Capsule.Dr PO BEDTIME PRN Acid Reflux Ondansetron HCl 4 mg 02/24/21 18:22 Ondansetron Hcl 4 Mg/2 Ml Vial IVPUSH Q8H PRN Nausea and Vomiting Pharmacy Consult 1 each 02/24/21 15:52 Consult Rx Perform Med Rec MISCELLANE ONCE PRN Consult order Polyethylene Glycol 17 gm 02/25/21 11:55 02/26/21 09:12 Polyethylene Glycol 3350 17 Gm Powd.Pack PO Not Given DAILY [facility] Sodium Chloride 3 ml 02/25/21 00:00 02/26/21 09:05 0.9 % Sodium Chloride Flush 3 Ml Syringe IVFLUSH 3 ml QSHIFT [facility] Administration Labs CBC & Chem 7: 02/25/21 05:21 02/26/21 05:11 Labs: Laboratory Results - last 24 hr 02/25/21 02/25/21 02/25/21 11:26 16:20 20:44 Anion Gap Estim Creat Clear Calc Estimated GFR POC Glucose 199 H 127 H 187 H Random Glucose Calcium B-Natriuretic Peptide 02/26/21 02/26/21 02/26/21 05:11 05:11 07:07 Anion Gap 14 Estim Creat Clear Calc 78.5 Estimated GFR > 60 POC Glucose 127 H Random Glucose 116 H Calcium 8.7 B-Natriuretic Peptide 709 H Assessment and Plan (1) CHF (congestive heart failure): Status: Acute Assessment and Plan: 60-year-old woman admitted with acute on chronic congestive heart failure Acute Right heart failure not much urine output last 24 hours, only neg 900 cc will increase lasix to 80mg BID, may need metolozone cardiology on the case continue i/o, daily weights JACKSON cpap at night -- reports she has been 100% compliant at home DM hold orals, use sliding scale Constipation miralax colace Hyperbilirubinemia.? Likely secondary to congestion from heart failure follow AM labs Hypokalemia repleted check Mag Full Code DVT pptx, Lovenox Quality Stroke Does the patient have a stroke diagnosis?: No VTE Prior VTE?: No VTE Risk Level:: Medical - moderate - high VTE Device Contraindication: Treatment Not Tolerated VTE Drug Contraindication: N/A - Med Ordered
--- NOTE | 2021-02-26 10:14 | P.PNCA_ITS ---
Subjective Subjective Date of Service: 02/26/21 Principal diagnosis: CHF, pulmonary HTN Interval history: Cardiology follow up for CHF, pulm HTN. Seen at 0830. Today she reports still having shortness of breath with walking to bathroom in room. Slept well with HOB partially elevated. No chest pains, palpitations, dizziness. She feels leg edema still present. She does not feel like much fluid has been taken off. Review of Systems Review of Systems as above Yes all other systems are reviewed and are negative Physical Exam Vital Signs: Last Vital Signs Temp 97.5 F 02/26/21 07:05 Pulse 76 02/26/21 07:05 Resp 19 02/26/21 07:05 BP 121/82 02/26/21 07:05 Pulse Ox 95 02/26/21 07:05 Body Mass Index 46.5 Const General: cooperative, no acute distress, alert and awake Orientation/consciousness: patient oriented x3 Neck Neck: Yes normal visual inspection and Yes JVD Resp Effort & Inspection: normal respiratory effort, able to speak in complete sentences and not labored Auscultation: clear to auscultation bilaterally, no crackles, no rales, no rhonchi and no wheezes Cardio Jugular venous distension: JVD Rate: regular rate Rhythm: regular rhythm Heart sounds: S1 normal heart sound present and S2 normal heart sound present Peripheral pulses: Peripheral pulses 2+ throughout GI Inspection: Yes normal to inspection Skin General skin exam: no rashes or lesions noted Neuro General: patient oriented x3 Extrem Other: no pitting edema in extemeties General: Yes normal to inspection Results Labs and Meds Result diagrams: 02/25/21 05:21 02/26/21 05:11 Lab results: Laboratory Results - last 24 hr 02/25/21 02/25/21 02/25/21 11:26 16:20 20:44 Sodium Potassium Chloride Carbon Dioxide Anion Gap BUN Creatinine Estim Creat Clear Calc Estimated GFR POC Glucose 199 H 127 H 187 H Random Glucose Calcium B-Natriuretic Peptide 02/26/21 02/26/21 02/26/21 05:11 05:11 07:07 Sodium 143 Potassium 3.3 Chloride 98 Carbon Dioxide 34 H Anion Gap 14 BUN 17 H Creatinine 0.94 Estim Creat Clear Calc 78.5 Estimated GFR > 60 POC Glucose 127 H Random Glucose 116 H Calcium 8.7 B-Natriuretic Peptide 709 H Progress Note: A&P Assessment and plan (1) CHF (congestive heart failure): Status: Acute Assessment and Plan: Acute on chronic right heart failure in patient with JACKSON, severe pulm HTN. Admit with sob, edema. Echo yesterday shows EF 55-60%, flattened septum consistent with RV pressure overload, mild decrease RV systolic function, RA severely dilated, mod TR, severe pulm HTN. Being diuresed with IV lasix with fluid balance neg 975cc since admit. BNP up today at 709, was 688 yesterday. Sat 95% with 2 liters. Still reports sob with walking to BR and leg edema. On exam has JVD. Cr 0.94. K 3.3. Will increase IV Lasix to 80mg bid. Continue strict I+O monitoring, close monitoring of electrolyte and kidney function with replacement as warranted. Will need KCL replacement today. Continue O2 supplement as needed for sat > 90%. We will follow. (2) Acute respiratory failure with hypoxia: Status: Acute (3) Obstructive sleep apnea: Status: Acute Assessment and Plan: Wears CPAP at home. Admits to using it most nights but not every night. In hospital has O2 with cannula. (4) Pulmonary hypertension: Status: Acute Assessment and Plan: Severe, related to JACKSON (5) Right heart failure: Status: Acute Fall Risk Details Current Medications: Current Medications Generic Name Dose Route Start Last Admin Trade Name Freq PRN Reason Stop Dose Admin Acetaminophen 650 mg 02/24/21 18:22 Acetaminophen 325 Mg Tablet PO Q6H PRN Pain, Mild (Pain Scale 1-3) Albuterol Sulfate 2 puff 02/24/21 17:50 Albuterol Sulfate 90 Mcg 8 Gm Inhaler INHALE Q4H PRN Shortness Of Breath Atorvastatin Calcium 10 mg 02/24/21 21:00 02/25/21 22:30 Atorvastatin Calcium 10 Mg Tablet PO 10 mg BEDTIME SARAHI Administration Dextrose 25 gm 02/25/21 01:56 Dextrose 50 % 25 Gm/50 Ml Vial IVPUSH Q15M PRN per Hypoglycemia Standing Ord. Protocol Docusate Sodium 100 mg 02/25/21 21:00 02/26/21 09:08 Docusate Sodium 100 Mg Capsule PO 100 mg BID SARAHI Administration Enoxaparin Sodium 40 mg 02/25/21 15:00 02/25/21 15:14 Enoxaparin Sodium 40 Mg/0.4 Ml Syringe SUBCUT 40 mg Q24H SARAHI Administration Fluticasone/Vilanterol 1 puff 02/25/21 08:00 02/26/21 08:52 Fluticasone/Vilanterol 200/25 Blst.W.Dev INHALE 1 puff RDAILY SARAHI Administration Furosemide 40 mg 02/26/21 12:00 Furosemide 40 Mg/4 Ml Vial IVPUSH 02/26/21 12:01 ONCE ONE Protocol Furosemide 80 mg 02/26/21 18:00 Furosemide 40 Mg/4 Ml Vial IVPUSH BID@0900,1800 [facility] Protocol Gabapentin 300 mg 02/24/21 21:00 02/26/21 09:08 Gabapentin 300 Mg Capsule PO 300 mg TID SARAHI Administration Glucose 15 gm 02/25/21 01:56 Glucose Gel 15 Gm Gel..Gram. PO Q15M PRN per Hypoglycemia Standing Ord. Protocol Insulin Glargine 10 unit 02/24/21 21:00 02/25/21 22:31 Insulin Glargine,Hum.Rec.Anlog 100 Unit/Ml 10 Ml Vial SUBCUT 10 unit BEDTIME SARAHI Administration Insulin Human Lispro 0 unit 02/25/21 07:30 02/26/21 08:51 Insulin Lispro 100 Unit/Ml 3 Ml Vial SUBCUT Not Given QIDACHS [facility] Protocol Metolazone 2.5 mg 02/24/21 17:50 Metolazone 2.5 Mg Tablet PO MoWeFr@0900 PRN Edema Montelukast Sodium 10 mg 02/24/21 21:00 02/25/21 22:30 Montelukast Sodium 10 Mg Tablet PO 10 mg BEDTIME SARAHI Administration Omeprazole 40 mg 02/24/21 17:50 Omeprazole 40 Mg Capsule. PO BEDTIME PRN Acid Reflux Ondansetron HCl 4 mg 02/24/21 18:22 Ondansetron Hcl 4 Mg/2 Ml Vial IVPUSH Q8H PRN Nausea and Vomiting Pharmacy Consult 1 each 02/24/21 15:52 Consult Rx Perform Med Rec MISCELLANE ONCE PRN Consult order Polyethylene Glycol 17 gm 02/25/21 11:55 02/26/21 09:12 Polyethylene Glycol 3350 17 Gm Powd.Pack PO Not Given DAILY [facility] Sodium Chloride 3 ml 02/25/21 00:00 02/26/21 09:05 0.9 % Sodium Chloride Flush 3 Ml Syringe IVFLUSH 3 ml QSHIFT SARAHI Administration Time Spent With Patient Time: Total time spent is greater than 50% in coordination of care (as documented) at patient's floor/unit and/or counseling patient: 30 Time with patient: 25 - 35 minutes Progress Note: Quality Stroke Does the patient have a stroke diagnosis?: No Procedures Date of Service Date of Service: 02/26/21
[2021-02-26] MEDS: Acetaminophen 325 MG TABLET 650 MG PO ×3 (10:32→23:58)
[2021-02-26 10:41] LABS: Alanine Aminotransferase 13 U/L (0-31); Albumin Level 3.5 g/dL (3.5-5.0); Alkaline Phosphatase 143 U/L (39-117); Aspartate Amino Transferase 14 U/L (5-31); Bilirubin Direct 0.8 mg/dL (0.0-0.5); Bilirubin Total 1.7 mg/dL (0.0-1.0); Magnesium 1.9 mg/dL (1.6-2.6); Total Protein 5.9 g/dL (6.5-8.0)
[2021-02-26 10:56] LABS: Glucose, Whole Blood 227 mg/dL (60-115)
[2021-02-26] MEDS: Insulin Lispro 100 UNIT/ML 3 ML VIAL SUBCUT ×2 (11:31→20:35)
--- NOTE | 2021-02-26 12:14 | MHC.CM.PN ---
Female 60 DX HF. Pt will not DC today. Pt requires further diaeresis. DP home with or without services. Pts family will provide transportation.
[2021-02-26 15:37] LABS: Glucose, Whole Blood 97 mg/dL (60-115)
[2021-02-26] MEDS: Enoxaparin Sodium 40 MG/0.4 ML SYRINGE SUBCUT (15:51)
[2021-02-26] MEDS: Furosemide 200 MG in 0.9 % Sodium Chloride 80 ML IVCONT (16:22)
[2021-02-26] MEDS: Montelukast Sodium 10 MG TABLET PO (20:19)
[2021-02-26] MEDS: Atorvastatin Calcium 10 MG TABLET PO (20:19)
[2021-02-26 20:27] LABS: Glucose, Whole Blood 160 mg/dL (60-115)
[2021-02-26] MEDS: Insulin Glargine,Hum.rec.anlog 100 UNIT/ML 10 ML VIAL 10 UNIT SUBCUT (20:35)
[2021-02-27] VITALS (7 sets, daily range): BP systolic 98–119; BP diastolic 59–72; PULSE 82–104; RESP 14–19; TEMP 36.2–36.9; O2SAT 90–95; BMI 46.5
[2021-02-27 06:47] LABS: B Type Natriuretic Peptide 667 pg/mL (<100)
[2021-02-27 06:54] LABS: Anion Gap 13 (12-20); Blood Urea Nitrogen 17 mg/dL (9-16); Calcium 8.4 mg/dL (8.4-10.2); Carbon Dioxide 35 mmol/L (22-29); Chloride 98 mmol/L (96-108); Creatinine Clr Calc Pharmacy 72.3; Estimated Glomerular Filt Rate 56; Glucose Random 114 mg/dL (60-115); Potassium 3.5 mmol/L (3.3-5.1); Sodium 142 mmol/L (135-145)
[2021-02-27 07:22] LABS: Glucose, Whole Blood 131 mg/dL (60-115)
[2021-02-27] MEDS: Gabapentin 300 MG CAPSULE PO ×3 (07:40→20:49)
[2021-02-27] MEDS: 0.9 % Sodium Chloride Flush 3 ML SYRINGE IVFLUSH ×3 (07:41→20:50)
[2021-02-27] MEDS: Fluticasone/Vilanterol 200/25 BLST.W.DEV 1 PUFF INHALE (08:43)
[2021-02-27] MEDS: Furosemide 200 MG in 0.9 % Sodium Chloride 80 ML IVCONT (09:12)
--- NOTE | 2021-02-27 10:28 | P.PNCA_ITS ---
Subjective Subjective Date of Service: 02/27/21 Principal diagnosis: CHF, pulmonary HTN Interval history: Cardiology follow up for CHF. Seen at 1010. Today she reports that breathing is comfortable at rest. She has not been up to the bathroom yet today. Has used bedside commode. Has O2 off at present. No chest pains, palpitation, dizziness, presyncope, PND, orthopnea. She states he legs are still swollen but getting better. She has pain in her feet which is not new. Complaining that room is too hot for her. Review of Systems Review of Systems as above Yes all other systems are reviewed and are negative Physical Exam Vital Signs: Last Vital Signs Temp 97.1 F 02/27/21 06:59 Pulse 82 02/27/21 06:59 Resp 18 02/27/21 06:59 BP 118/64 02/27/21 06:59 Pulse Ox 95 02/27/21 06:59 Body Mass Index 46.5 Const General: cooperative, no acute distress, alert and awake Orientation/consciousness: patient oriented x3 Neck Neck: Yes normal visual inspection and Yes JVD Resp Effort & Inspection: normal respiratory effort, able to speak in complete sentences and not labored Auscultation: clear to auscultation bilaterally (mild coarseness to bases), no rales, no rhonchi and no wheezes Cardio Jugular venous distension: JVD present Rate: regular rate Rhythm: regular rhythm Heart sounds: S1 normal heart sound present and S2 normal heart sound present Peripheral pulses: Peripheral pulses 2+ throughout GI Inspection: Yes normal to inspection Neuro General: patient oriented x3 Extrem General: Yes normal to inspection and No edema (no pitting edema, legs soft/ obese. Pt reports still swollen) Results Labs and Meds Result diagrams: 02/25/21 05:21 02/27/21 05:39 Lab results: Laboratory Results - last 24 hr 02/26/21 02/26/21 02/26/21 05:11 10:50 15:34 Sodium Potassium Chloride Carbon Dioxide Anion Gap BUN Creatinine Estim Creat Clear Calc Estimated GFR POC Glucose 227 H 97 Random Glucose Calcium Magnesium 1.9 Total Bilirubin 1.7 H Direct Bilirubin 0.8 H AST 14 ALT 13 Alkaline Phosphatase 143 H B-Natriuretic Peptide Total Protein 5.9 L Albumin 3.5 02/26/21 02/27/21 02/27/21 20:20 05:39 05:39 Sodium 142 Potassium 3.5 Chloride 98 Carbon Dioxide 35 H Anion Gap 13 BUN 17 H Creatinine 1.02 Estim Creat Clear Calc 72.3 Estimated GFR 56 POC Glucose 160 H Random Glucose 114 Calcium 8.4 Magnesium Total Bilirubin Direct Bilirubin AST ALT Alkaline Phosphatase B-Natriuretic Peptide 667 H Total Protein Albumin 02/27/21 06:54 Sodium Potassium Chloride Carbon Dioxide Anion Gap BUN Creatinine Estim Creat Clear Calc Estimated GFR POC Glucose 131 H Random Glucose Calcium Magnesium Total Bilirubin Direct Bilirubin AST ALT Alkaline Phosphatase B-Natriuretic Peptide Total Protein Albumin Progress Note: A&P Assessment and plan (1) CHF (congestive heart failure): Status: Acute Assessment and Plan: Acute on chronic right heart failure in patient with JACKSON, severe pulm HTN. Admit with sob, edema. Echo 02/25 shows EF 55-60%, flattened septum consistent with RV pressure overload, mild decrease RV systolic function, RA severely dilated, mod TR, severe pulm HTN.? Being diuresed with IV lasix with fluid balance neg 2000cc since admit. BNP today at 667, was 709 yesterday. Sat 95% with 2 liters.? Denies PND, orthopnea. She states legs still swollen. Has JVD on exam.? Cr 1.02. K 3.5. Continue Lasix drip another day, then will plan for transition to PO. Continue strict I+O monitoring, close monitoring of electrolyte and kidney function with replacement as warranted. Continue O2 supplement as needed for sat > 90%. Recommend respiratory therapy evaluation for home O2/ 6 min walk test. We will follow.? (2) Hypoxia: Status: Acute (3) Pulmonary hypertension: Status: Acute Assessment and Plan: Hx JACKSON, Wears CPAP at home. Admits to using it most nights but not every night. In hospital has O2 with cannula. Pulm HTN severe on echo. (4) Morbid obesity: Status: Acute Fall Risk Details Current Medications: Current Medications Generic Name Dose Route Start Last Admin Trade Name Freq PRN Reason Stop Dose Admin Acetaminophen 650 mg 02/24/21 18:22 02/26/21 23:58 Acetaminophen 325 Mg Tablet PO 650 mg Q6H PRN Administration Pain, Mild (Pain Scale 1-3) Albuterol Sulfate 2 puff 02/24/21 17:50 Albuterol Sulfate 90 Mcg 8 Gm Inhaler INHALE Q4H PRN Shortness Of Breath Atorvastatin Calcium 10 mg 02/24/21 21:00 02/26/21 20:19 Atorvastatin Calcium 10 Mg Tablet PO 10 mg BEDTIME SARAHI Administration Dextrose 25 gm 02/25/21 01:56 Dextrose 50 % 25 Gm/50 Ml Vial IVPUSH Q15M PRN per Hypoglycemia Standing Ord. Protocol Docusate Sodium 100 mg 02/25/21 21:00 02/27/21 07:41 Docusate Sodium 100 Mg Capsule PO Not Given BID SARAHI Enoxaparin Sodium 40 mg 02/25/21 15:00 02/26/21 15:51 Enoxaparin Sodium 40 Mg/0.4 Ml Syringe SUBCUT 40 mg Q24H SARAHI Administration Fluticasone/Vilanterol 1 puff 02/25/21 08:00 02/27/21 08:43 Fluticasone/Vilanterol 200/25 Blst.W.Dev INHALE 1 puff RDAILY SARAHI Administration Gabapentin 300 mg 02/24/21 21:00 02/27/21 07:40 Gabapentin 300 Mg Capsule PO 300 mg TID SARAHI Administration Glucose 15 gm 02/25/21 01:56 Glucose Gel 15 Gm Gel..Gram. PO Q15M PRN per Hypoglycemia Standing Ord. Protocol Furosemide 200 mg/ Sodium 100 mls @ 5 mls/hr 02/26/21 15:30 02/27/21 09:12 Chloride IVCONT 10 mg/hr .Q20H SARAHI 5 mls/hr Administration 10 MG/HR Insulin Glargine 10 unit 02/24/21 21:00 02/26/21 20:35 Insulin Glargine,Hum.Rec.Anlog 100 Unit/Ml 10 Ml Vial SUBCUT 10 unit BEDTIME SARAHI Administration Insulin Human Lispro 0 unit 02/25/21 07:30 02/27/21 07:33 Insulin Lispro 100 Unit/Ml 3 Ml Vial SUBCUT Not Given QIDACHS [facility] Protocol Metolazone 2.5 mg 02/24/21 17:50 Metolazone 2.5 Mg Tablet PO MoWeFr@0900 PRN Edema Montelukast Sodium 10 mg 02/24/21 21:00 02/26/21 20:19 Montelukast Sodium 10 Mg Tablet PO 10 mg BEDTIME SARAHI Administration Omeprazole 40 mg 02/24/21 17:50 Omeprazole 40 Mg Capsule.Dr PO BEDTIME PRN Acid Reflux Ondansetron HCl 4 mg 02/24/21 18:22 Ondansetron Hcl 4 Mg/2 Ml Vial IVPUSH Q8H PRN Nausea and Vomiting Pharmacy Consult 1 each 02/24/21 15:52 Consult Rx Perform Med Rec MISCELLANE ONCE PRN Consult order Polyethylene Glycol 17 gm 02/25/21 11:55 02/27/21 07:42 Polyethylene Glycol 3350 17 Gm Powd.Pack PO Not Given DAILY SARAHI Sodium Chloride 3 ml 02/25/21 00:00 02/27/21 07:41 0.9 % Sodium Chloride Flush 3 Ml Syringe IVFLUSH 3 ml QSHIFT SARAHI Administration Time Spent With Patient Time: Total time spent is greater than 50% in coordination of care (as documented) at patient's floor/unit and/or counseling patient: Time with patient: 15 - 24 minutes Progress Note: Quality Stroke Does the patient have a stroke diagnosis?: No Procedures Date of Service Date of Service: 02/27/21
--- NOTE | 2021-02-27 11:30 | HO.PM.IMPN ---
Subjective Subjective Date of Service: 02/27/21 Interval History: seen and examined this AM slowly improving leg pain improved Review of Systems General - no fevers or chills Cardiovascular - no chest pain, +leg edema Respiratory - +SOB Abdominal- no abdominal pain, nausea, vomiting, diarrhea Physical Exam Vital Signs: Vital Signs: Last Vital Signs Temp 97.4 F 02/27/21 11:20 Pulse 87 02/27/21 11:20 Resp 19 02/27/21 11:20 BP 98/72 02/27/21 11:20 Pulse Ox 90 L 02/27/21 11:20 Body Mass Index 46.5 Const: Other: General - no acute distress, appears comfortable Cardiovascular - regular rate and rhythm, S1-S2, 2+ pitting edema;+JVD Lungs - diminished sounds Abdomen - soft, nontender, no rebound or guarding Extremities - no edema bilaterally Neuro - awake and alert, no focal deficits Objective Data Current Medications Generic Name Dose Route Start Last Admin Trade Name Freq PRN Reason Stop Dose Admin Acetaminophen 650 mg 02/24/21 18:22 02/26/21 23:58 Acetaminophen 325 Mg Tablet PO 650 mg Q6H PRN Administration Pain, Mild (Pain Scale 1-3) Albuterol Sulfate 2 puff 02/24/21 17:50 Albuterol Sulfate 90 Mcg 8 Gm Inhaler INHALE Q4H PRN Shortness Of Breath Atorvastatin Calcium 10 mg 02/24/21 21:00 02/26/21 20:19 Atorvastatin Calcium 10 Mg Tablet PO 10 mg BEDTIME SARAHI Administration Dextrose 25 gm 02/25/21 01:56 Dextrose 50 % 25 Gm/50 Ml Vial IVPUSH Q15M PRN per Hypoglycemia Standing Ord. Protocol Docusate Sodium 100 mg 02/25/21 21:00 02/27/21 07:41 Docusate Sodium 100 Mg Capsule PO Not Given BID SARAHI Enoxaparin Sodium 40 mg 02/25/21 15:00 02/26/21 15:51 Enoxaparin Sodium 40 Mg/0.4 Ml Syringe SUBCUT 40 mg Q24H SARAHI Administration Fluticasone/Vilanterol 1 puff 02/25/21 08:00 02/27/21 08:43 Fluticasone/Vilanterol 200/25 Blst.W.Dev INHALE 1 puff RDAILY SARAHI Administration Gabapentin 300 mg 02/24/21 21:00 02/27/21 07:40 Gabapentin 300 Mg Capsule PO 300 mg TID SARAHI Administration Glucose 15 gm 02/25/21 01:56 Glucose Gel 15 Gm Gel..Gram. PO Q15M PRN per Hypoglycemia Standing Ord. Protocol Furosemide 200 mg/ Sodium 100 mls @ 5 mls/hr 02/26/21 15:30 02/27/21 09:12 Chloride IVCONT 10 mg/hr .Q20H SARAHI 5 mls/hr Administration 10 MG/HR Insulin Glargine 10 unit 02/24/21 21:00 02/26/21 20:35 Insulin Glargine,Hum.Rec.Anlog 100 Unit/Ml 10 Ml Vial SUBCUT 10 unit BEDTIME SARAHI Administration Insulin Human Lispro 0 unit 02/25/21 07:30 02/27/21 07:33 Insulin Lispro 100 Unit/Ml 3 Ml Vial SUBCUT Not Given QIDACHS [facility] Protocol Metolazone 2.5 mg 02/24/21 17:50 Metolazone 2.5 Mg Tablet PO MoWeFr@0900 PRN Edema Montelukast Sodium 10 mg 02/24/21 21:00 02/26/21 20:19 Montelukast Sodium 10 Mg Tablet PO 10 mg BEDTIME SARAHI Administration Omeprazole 40 mg 02/24/21 17:50 Omeprazole 40 Mg Capsule.Dr PO BEDTIME PRN Acid Reflux Ondansetron HCl 4 mg 02/24/21 18:22 Ondansetron Hcl 4 Mg/2 Ml Vial IVPUSH Q8H PRN Nausea and Vomiting Pharmacy Consult 1 each 02/24/21 15:52 Consult Rx Perform Med Rec MISCELLANE ONCE PRN Consult order Polyethylene Glycol 17 gm 02/25/21 11:55 02/27/21 07:42 Polyethylene Glycol 3350 17 Gm Powd.Pack PO Not Given DAILY [facility] Sodium Chloride 3 ml 02/25/21 00:00 02/27/21 07:41 0.9 % Sodium Chloride Flush 3 Ml Syringe IVFLUSH 3 ml QSHIFT SARAHI Administration Labs CBC & Chem 7: 02/25/21 05:21 02/27/21 05:39 Labs: Laboratory Results - last 24 hr 02/26/21 02/26/21 02/27/21 15:34 20:20 05:39 Anion Gap 13 Estim Creat Clear Calc 72.3 Estimated GFR 56 POC Glucose 97 160 H Random Glucose 114 Calcium 8.4 B-Natriuretic Peptide 02/27/21 02/27/21 05:39 06:54 Anion Gap Estim Creat Clear Calc Estimated GFR POC Glucose 131 H Random Glucose Calcium B-Natriuretic Peptide 667 H Assessment and Plan (1) CHF (congestive heart failure): Status: Acute Assessment and Plan: 60-year-old woman admitted with acute on chronic congestive heart failure Acute Right heart failure still remains significantly fluid overloaded diuresing well on lasix gtt -- continue at 10mg/hr i/o, daily weight f/u chem cardiology on the case JACKSON cpap at night -- reports she has been 100% compliant at home ordered here but didnt wear as mask not appropriate size, recommended to her to bring hers in from home DM hold orals, use sliding scale Constipation miralax colace Hyperbilirubinemia chronic, likely fatty liver (see ct from November) Hypokalemia repleted daily kcl 40meq while on lasix gtt Full Code DVT pptx, Lovenox Quality Stroke Does the patient have a stroke diagnosis?: No VTE Prior VTE?: No VTE Risk Level:: Medical - moderate - high VTE Device Contraindication: Treatment Not Tolerated VTE Drug Contraindication: N/A - Med Ordered
[2021-02-27 11:40] LABS: Glucose, Whole Blood 137 mg/dL (60-115)
[2021-02-27] MEDS: Potassium Chloride ER 20 MEQ TAB.ER.PRT 40 MEQ PO (12:22)
[2021-02-27 16:28] LABS: Glucose, Whole Blood 231 mg/dL (60-115)
[2021-02-27] MEDS: Enoxaparin Sodium 40 MG/0.4 ML SYRINGE SUBCUT (16:39)
[2021-02-27] MEDS: Insulin Lispro 100 UNIT/ML 3 ML VIAL SUBCUT (16:40)
[2021-02-27 20:24] LABS: Glucose, Whole Blood 108 mg/dL (60-115)
[2021-02-27] MEDS: Insulin Glargine,Hum.rec.anlog 100 UNIT/ML 10 ML VIAL 10 UNIT SUBCUT (20:49)
[2021-02-27] MEDS: Atorvastatin Calcium 10 MG TABLET PO (20:49)
[2021-02-27] MEDS: Montelukast Sodium 10 MG TABLET PO (20:50)
[2021-02-28] VITALS (7 sets, daily range): BP systolic 103–123; BP diastolic 60–84; PULSE 86–108; RESP 14–20; TEMP 36–37; O2SAT 92–96; BMI 46.0
[2021-02-28] MEDS: Acetaminophen 325 MG TABLET 650 MG PO (03:48)
[2021-02-28 07:04] LABS: Anion Gap 15 (12-20); Blood Urea Nitrogen 16 mg/dL (9-16); Calcium 8.4 mg/dL (8.4-10.2); Carbon Dioxide 33 mmol/L (22-29); Chloride 97 mmol/L (96-108); Creatinine Clr Calc Pharmacy 71.1; Estimated Glomerular Filt Rate 55; Glucose Random 138 mg/dL (60-115); Potassium 3.7 mmol/L (3.3-5.1); Sodium 141 mmol/L (135-145)
[2021-02-28] MEDS: ondansetron HCL 4 MG/2 ML VIAL IVPUSH (07:27)
[2021-02-28] MEDS: Furosemide 200 MG in 0.9 % Sodium Chloride 80 ML IVCONT (07:27)
[2021-02-28] MEDS: 0.9 % Sodium Chloride Flush 3 ML SYRINGE IVFLUSH ×2 (07:28→22:42)
[2021-02-28] MEDS: Omeprazole 40 MG CAPSULE.DR PO (07:28)
[2021-02-28 07:48] LABS: Glucose, Whole Blood 161 mg/dL (60-115)
[2021-02-28] MEDS: Potassium Chloride ER 20 MEQ TAB.ER.PRT 40 MEQ PO (08:02)
[2021-02-28] MEDS: Insulin Lispro 100 UNIT/ML 3 ML VIAL SUBCUT ×4 (08:02→20:49)
[2021-02-28] MEDS: Gabapentin 300 MG CAPSULE PO ×3 (08:02→20:41)
[2021-02-28] MEDS: Fluticasone/Vilanterol 200/25 BLST.W.DEV 1 PUFF INHALE (08:08)
[2021-02-28] MEDS: oxyCODONE HCl Immed Release 5 MG TABLET PO ×2 (10:44→22:42)
--- NOTE | 2021-02-28 11:09 | HO.PM.IMPN ---
Subjective Subjective Date of Service: 02/28/21 Interval History: seen and examined this AM complaining of foot pain on RLE reports not feeling better today still ob Review of Systems General - no fevers or chills Cardiovascular - no chest pain, +leg edema Respiratory - +SOB Abdominal- no abdominal pain, nausea, vomiting, diarrhea Physical Exam Vital Signs: Vital Signs: Last Vital Signs Temp 97.2 F 02/28/21 10:58 Pulse 100 02/28/21 10:58 Resp 20 02/28/21 10:58 BP 120/60 02/28/21 10:58 Pulse Ox 96 02/28/21 10:58 Body Mass Index 46.0 Const: Other: General - no acute distress, appears comfortable Cardiovascular - regular rate and rhythm, S1-S2, 2+ pitting edema; minimal JVD Lungs - diminished sounds Abdomen - soft, nontender, no rebound or guarding Extremities - no edema bilaterally Neuro - awake and alert, no focal deficits Objective Data Current Medications Generic Name Dose Route Start Last Admin Trade Name Freq PRN Reason Stop Dose Admin Acetaminophen 650 mg 02/24/21 18:22 02/28/21 03:48 Acetaminophen 325 Mg Tablet PO 650 mg Q6H PRN Administration Pain, Mild (Pain Scale 1-3) Albuterol Sulfate 2 puff 02/24/21 17:50 Albuterol Sulfate 90 Mcg 8 Gm Inhaler INHALE Q4H PRN Shortness Of Breath Atorvastatin Calcium 10 mg 02/24/21 21:00 02/27/21 20:49 Atorvastatin Calcium 10 Mg Tablet PO 10 mg BEDTIME SARAHI Administration Dextrose 25 gm 02/25/21 01:56 Dextrose 50 % 25 Gm/50 Ml Vial IVPUSH Q15M PRN per Hypoglycemia Standing Ord. Protocol Docusate Sodium 100 mg 02/25/21 21:00 02/28/21 07:29 Docusate Sodium 100 Mg Capsule PO Not Given BID SARAHI Enoxaparin Sodium 40 mg 02/25/21 15:00 02/27/21 16:39 Enoxaparin Sodium 40 Mg/0.4 Ml Syringe SUBCUT 40 mg Q24H SARAHI Administration Fluticasone/Vilanterol 1 puff 02/25/21 08:00 02/28/21 08:08 Fluticasone/Vilanterol 200/25 Blst.W.Dev INHALE 1 puff RDAILY SARAHI Administration Gabapentin 300 mg 02/24/21 21:00 02/28/21 08:02 Gabapentin 300 Mg Capsule PO 300 mg TID SARAHI Administration Glucose 15 gm 02/25/21 01:56 Glucose Gel 15 Gm Gel..Gram. PO Q15M PRN per Hypoglycemia Standing Ord. Protocol Furosemide 200 mg/ Sodium 100 mls @ 5 mls/hr 02/26/21 15:30 02/28/21 07:27 Chloride IVCONT 10 mg/hr .Q20H SARAHI 5 mls/hr Administration 10 MG/HR Insulin Glargine 10 unit 02/24/21 21:00 02/27/21 20:49 Insulin Glargine,Hum.Rec.Anlog 100 Unit/Ml 10 Ml Vial SUBCUT 10 unit BEDTIME SARAHI Administration Insulin Human Lispro 0 unit 02/25/21 07:30 02/28/21 08:02 Insulin Lispro 100 Unit/Ml 3 Ml Vial SUBCUT 2 unit QIDACHS SARAHI Administration Protocol Metolazone 2.5 mg 02/24/21 17:50 Metolazone 2.5 Mg Tablet PO MoWeFr@0900 PRN Edema Montelukast Sodium 10 mg 02/24/21 21:00 02/27/21 20:50 Montelukast Sodium 10 Mg Tablet PO 10 mg BEDTIME SARAHI Administration Omeprazole 40 mg 02/24/21 17:50 02/28/21 07:28 Omeprazole 40 Mg Capsule.Dr PO 40 mg BEDTIME PRN Administration Acid Reflux Ondansetron HCl 4 mg 02/24/21 18:22 02/28/21 07:27 Ondansetron Hcl 4 Mg/2 Ml Vial IVPUSH 4 mg Q8H PRN Administration Nausea and Vomiting Oxycodone HCl 5 mg 02/28/21 10:23 02/28/21 10:44 Oxycodone Hcl Immed Release 5 Mg Tablet PO 5 mg Q6H PRN Administration Pain, Moderate (Pain Scale 4-6 Oxycodone HCl 5 mg 02/28/21 11:08 Oxycodone Hcl Immed Release 5 Mg Tablet PO Q6H PRN Pain, Severe (Pain Scale 7-10) Pharmacy Consult 1 each 02/24/21 15:52 Consult Rx Perform Med Rec MISCELLANE ONCE PRN Consult order Polyethylene Glycol 17 gm 02/25/21 11:55 02/28/21 07:29 Polyethylene Glycol 3350 17 Gm Powd.Pack PO Not Given DAILY SARAHI Potassium Chloride 40 meq 02/27/21 11:35 02/28/21 08:02 Potassium Chloride Er 20 Meq Tab.Er.Prt PO 40 meq DAILY SARAHI Administration Sodium Chloride 3 ml 02/25/21 00:00 02/28/21 07:28 0.9 % Sodium Chloride Flush 3 Ml Syringe IVFLUSH 3 ml QSHIFT SARAHI Administration Labs CBC & Chem 7: 02/25/21 05:21 02/28/21 05:08 Labs: Laboratory Results - last 24 hr 02/27/21 02/27/21 02/27/21 11:25 16:16 20:15 Anion Gap Estim Creat Clear Calc Estimated GFR POC Glucose 137 H 231 H 108 Random Glucose Calcium 02/28/21 02/28/21 05:08 07:21 Anion Gap 15 Estim Creat Clear Calc 71.1 Estimated GFR 55 POC Glucose 161 H Random Glucose 138 H Calcium 8.4 Assessment and Plan (1) Acute respiratory failure with hypoxia: Status: Acute Assessment and Plan: 60-year-old woman admitted with acute on chronic congestive heart failure Acute Right heart failure still fluid overloaded clinically not much output last 24 hours - about neg 700 cc, will continue lasix gtt for the time being and wait until cardiology input today re: fluid status diuresing well on lasix gtt -- continue at 10mg/hr i/o, daily weight f/u chem cardiology on the case JACKSON cpap at night -- reports she has been 100% compliant at home ordered here but didnt wear as mask not appropriate size, recommended to her to bring hers in from home DM hold orals, use sliding scale Constipation miralax colace Hyperbilirubinemia chronic, likely fatty liver (see ct from November) Hypokalemia repleted daily kcl 40meq while on lasix gtt Full Code DVT pptx, Lovenox Quality Stroke Does the patient have a stroke diagnosis?: No VTE Prior VTE?: No VTE Risk Level:: Medical - moderate - high VTE Device Contraindication: Treatment Not Tolerated VTE Drug Contraindication: N/A - Med Ordered
[2021-02-28 11:28] LABS: Glucose, Whole Blood 175 mg/dL (60-115)
--- NOTE | 2021-02-28 13:26 | PM.PNCARD ---
Subjective Subjective Date of Service: 02/28/21 Principal diagnosis: CHF, pulmonary HTN Interval history: Cardiology follow up for the above. Seen at 0930. Today she reports feeling generally unwell. She did not sleep well and feels stiff and achy. Breathing unlabored at rest. She still reports some sob walking to the BR. No chest pains, palpitation, dizziness, presyncope, PND, orthopnea. She feels legs and hands are still swollen. Review of Systems Review of Systems as above Yes all other systems are reviewed and are negative Physical Exam Vital Signs: Last Vital Signs Temp 97.2 F 02/28/21 10:58 Pulse 100 02/28/21 10:58 Resp 20 02/28/21 10:58 BP 120/60 02/28/21 10:58 Pulse Ox 96 02/28/21 10:58 Body Mass Index 46.0 Const General: cooperative, no acute distress, alert and awake Orientation/consciousness: patient oriented x3 Neck Neck: Yes normal visual inspection and Yes JVD Resp Effort & Inspection: normal respiratory effort, able to speak in complete sentences and not labored Auscultation: clear to auscultation bilaterally, no crackles, no rales, no rhonchi and no wheezes Cardio Palpation: normal PMI Rate: regular rate Rhythm: regular rhythm Heart sounds: S1 normal heart sound present and S2 normal heart sound present Peripheral pulses: Peripheral pulses 2+ throughout GI Other: obese Inspection: Yes normal to inspection Neuro General: patient oriented x3 Extrem General: Yes normal to inspection and No edema Results Labs and Meds Result diagrams: 02/25/21 05:21 02/28/21 05:08 Lab results: Laboratory Results - last 24 hr 02/27/21 02/27/21 02/28/21 16:16 20:15 05:08 Sodium 141 Potassium 3.7 Chloride 97 Carbon Dioxide 33 H Anion Gap 15 BUN 16 Creatinine 1.03 Estim Creat Clear Calc 71.1 Estimated GFR 55 POC Glucose 231 H 108 Random Glucose 138 H Calcium 8.4 02/28/21 02/28/21 07:21 10:57 Sodium Potassium Chloride Carbon Dioxide Anion Gap BUN Creatinine Estim Creat Clear Calc Estimated GFR POC Glucose 161 H 175 H Random Glucose Calcium Progress Note: A&P Assessment and plan (1) CHF (congestive heart failure): Status: Acute Assessment and Plan: Acute on chronic right heart failure in patient with JACKSON, severe pulm HTN. Admit with sob, edema. Echo 02/25 shows EF 55-60%, flattened septum consistent with RV pressure overload, mild decrease RV systolic function, RA severely dilated, mod TR, severe pulm HTN.? Being diuresed with IV lasix with fluid balance neg 2700cc since admit. BNP yesterday at 667. Sat 95% on RA at rest. She states legs still swollen and sob walking to BR. Has JVD on exam.? Cr 1.03. K 3.7. Continue Lasix drip.? Continue strict I+O monitoring, close monitoring of electrolyte and kidney function with replacement as warranted.? Continue O2 supplement as needed for sat > 90%. Recommend respiratory therapy evaluation for home O2/ [address] Jain will reeval her this afternoon. We will follow. (2) Pulmonary hypertension: Status: Acute Assessment and Plan: Hx JACKSON, Wears CPAP at home. Admits to using it most nights but not every night. In hospital has O2 with cannula. Pulm HTN severe on echo. (3) Morbid obesity: Status: Acute (4) Hypertension: Status: Acute Fall Risk Details Current Medications: Current Medications Generic Name Dose Route Start Last Admin Trade Name Freq PRN Reason Stop Dose Admin Acetaminophen 650 mg 02/24/21 18:22 02/28/21 03:48 Acetaminophen 325 Mg Tablet PO 650 mg Q6H PRN Administration Pain, Mild (Pain Scale 1-3) Albuterol Sulfate 2 puff 02/24/21 17:50 Albuterol Sulfate 90 Mcg 8 Gm Inhaler INHALE Q4H PRN Shortness Of Breath Atorvastatin Calcium 10 mg 02/24/21 21:00 02/27/21 20:49 Atorvastatin Calcium 10 Mg Tablet PO 10 mg BEDTIME SARAHI Administration Dextrose 25 gm 02/25/21 01:56 Dextrose 50 % 25 Gm/50 Ml Vial IVPUSH Q15M PRN per Hypoglycemia Standing Ord. Protocol Docusate Sodium 100 mg 02/25/21 21:00 02/28/21 07:29 Docusate Sodium 100 Mg Capsule PO Not Given BID SARAHI Enoxaparin Sodium 40 mg 02/25/21 15:00 02/27/21 16:39 Enoxaparin Sodium 40 Mg/0.4 Ml Syringe SUBCUT 40 mg Q24H SARAHI Administration Fluticasone/Vilanterol 1 puff 02/25/21 08:00 02/28/21 08:08 Fluticasone/Vilanterol 200/25 Blst.W.Dev INHALE 1 puff RDAILY SARAHI Administration Gabapentin 300 mg 02/24/21 21:00 02/28/21 08:02 Gabapentin 300 Mg Capsule PO 300 mg TID SARAHI Administration Glucose 15 gm 02/25/21 01:56 Glucose Gel 15 Gm Gel..Gram. PO Q15M PRN per Hypoglycemia Standing Ord. Protocol Furosemide 200 mg/ Sodium 100 mls @ 5 mls/hr 02/26/21 15:30 02/28/21 07:27 Chloride IVCONT 10 mg/hr .Q20H SARAHI 5 mls/hr Administration 10 MG/HR Insulin Glargine 10 unit 02/24/21 21:00 02/27/21 20:49 Insulin Glargine,Hum.Rec.Anlog 100 Unit/Ml 10 Ml Vial SUBCUT 10 unit BEDTIME SARAHI Administration Insulin Human Lispro 0 unit 02/25/21 07:30 02/28/21 12:36 Insulin Lispro 100 Unit/Ml 3 Ml Vial SUBCUT 2 unit QIDACHS SARAHI Administration Protocol Metolazone 2.5 mg 02/24/21 17:50 Metolazone 2.5 Mg Tablet PO MoWeFr@0900 PRN Edema Montelukast Sodium 10 mg 02/24/21 21:00 02/27/21 20:50 Montelukast Sodium 10 Mg Tablet PO 10 mg BEDTIME SARAHI Administration Omeprazole 40 mg 02/24/21 17:50 02/28/21 07:28 Omeprazole 40 Mg Capsule.Dr PO 40 mg BEDTIME PRN Administration Acid Reflux Ondansetron HCl 4 mg 02/24/21 18:22 02/28/21 07:27 Ondansetron Hcl 4 Mg/2 Ml Vial IVPUSH 4 mg Q8H PRN Administration Nausea and Vomiting Oxycodone HCl 5 mg 02/28/21 10:23 02/28/21 10:44 Oxycodone Hcl Immed Release 5 Mg Tablet PO 5 mg Q6H PRN Administration Pain, Moderate (Pain Scale 4-6 Pharmacy Consult 1 each 02/24/21 15:52 Consult Rx Perform Med Rec MISCELLANE ONCE PRN Consult order Polyethylene Glycol 17 gm 02/25/21 11:55 08/27/21 07:29 Polyethylene Glycol 3350 17 Gm Powd.Pack PO Not Given DAILY SARAHI Potassium Chloride 40 meq 02/27/21 11:35 02/28/21 08:02 Potassium Chloride Er 20 Meq Tab.Er.Prt PO 40 meq DAILY SARAHI Administration Sodium Chloride 3 ml 02/25/21 00:00 02/28/21 07:28 0.9 % Sodium Chloride Flush 3 Ml Syringe IVFLUSH 3 ml QSHIFT SARAHI Administration Time Spent With Patient Time: Total time spent is greater than 50% in coordination of care (as documented) at patient's floor/unit and/or counseling patient: Time with patient: 15 - 24 minutes Progress Note: Quality Stroke Does the patient have a stroke diagnosis?: No Procedures Date of Service Date of Service: 02/28/21
[2021-02-28 16:18] LABS: Glucose, Whole Blood 183 mg/dL (60-115)
[2021-02-28] MEDS: Enoxaparin Sodium 40 MG/0.4 ML SYRINGE SUBCUT (16:57)
[2021-02-28] MEDS: metOLazone 2.5 MG TABLET 5 MG PO (16:59)
[2021-02-28 20:36] LABS: Glucose, Whole Blood 188 mg/dL (60-115)
[2021-02-28] MEDS: Montelukast Sodium 10 MG TABLET PO (20:41)
[2021-02-28] MEDS: Atorvastatin Calcium 10 MG TABLET PO (20:41)
[2021-02-28] MEDS: Insulin Glargine,Hum.rec.anlog 100 UNIT/ML 10 ML VIAL 10 UNIT SUBCUT (20:49)
[2021-03-01] MEDS: Furosemide 200 MG in 0.9 % Sodium Chloride 80 ML IVCONT (01:01)
[2021-03-01 03:53] VITALS: BP 112/62; PULSE 98; RESP 18; TEMP 36.8; O2SAT 93
[2021-03-01 07:26] LABS: Glucose, Whole Blood 139 mg/dL (60-115)
[2021-03-01 07:28] LABS: Anion Gap 19 (12-20); Blood Urea Nitrogen 21 mg/dL (9-16); Calcium 9.2 mg/dL (8.4-10.2); Carbon Dioxide 31 mmol/L (22-29); Chloride 92 mmol/L (96-108); Creatinine Clr Calc Pharmacy 53.9; Estimated Glomerular Filt Rate 40; Glucose Random 146 mg/dL (60-115); Potassium 4.5 mmol/L (3.3-5.1); Sodium 137 mmol/L (135-145)
[2021-03-01] MEDS: Docusate Sodium 100 MG CAPSULE PO (07:52)
[2021-03-01] MEDS: Potassium Chloride ER 20 MEQ TAB.ER.PRT 40 MEQ PO (07:52)
[2021-03-01] MEDS: Gabapentin 300 MG CAPSULE PO ×3 (07:52→21:35)
[2021-03-01] MEDS: 0.9 % Sodium Chloride Flush 3 ML SYRINGE IVFLUSH ×2 (07:53→16:27)
[2021-03-01] MEDS: Acetaminophen 325 MG TABLET 650 MG PO ×2 (07:55→16:44)
[2021-03-01 08:00] VITALS: BP 119/76; PULSE 114; RESP 20; TEMP 38.2; O2SAT 90
[2021-03-01] MEDS: Fluticasone/Vilanterol 200/25 BLST.W.DEV 1 PUFF INHALE (08:39)
[2021-03-01 08:41] VITALS: PULSE 798; O2SAT 91
--- NOTE | 2021-03-01 09:40 | PC.NURSE ---
Pt 82% SPO2 on 2LNC on commode. Increased to 5LNC and SPO2 increased to 89%. Provider and respiratory notified via [place] [facility]. Stat portable CXRAY ordered. Positive Homans manuimer, measurement of calves R-450 cm L-410. Provider notified. SPO2 91% on 5L in bed without distress..
[2021-03-01 11:18] LABS: Glucose, Whole Blood 188 mg/dL (60-115)
--- NOTE | 2021-03-01 11:38 | PM.PNCARD ---
Subjective Subjective Date of Service: 03/01/21 Principal diagnosis: CHF, pulmonary HTN Interval history: Seen and examined flushed, spiked a fever. more hypoxic. Physical Exam Vital Signs: Last Vital Signs Temp 100.8 F H 03/01/21 08:00 Pulse 114 H 03/01/21 08:00 Resp 20 03/01/21 08:00 BP 119/76 03/01/21 08:00 Pulse Ox 90 L 03/01/21 08:00 Body Mass Index 46.0 GENERAL APPEARANCE: in no acute distress, pleasant. NECK: no carotid bruit, + jugular venous distention. SKIN: no suspicious lesions, warm and dry. HEART: no murmurs, regular rate and rhythm. LUNGS:? Few crackles at bases. ABDOMEN: soft, nontender. EXTREMITIES:? mild edema. PERIPHERAL PULSES: equal. NEUROLOGIC: No gross deficits, AAO X 3 Results Labs and Meds Result diagrams: 02/25/21 05:21 03/01/21 06:12 Lab results: Laboratory Results - last 24 hr 02/28/21 02/28/21 03/01/21 16:10 20:21 06:12 Sodium 137 Potassium 4.5 D Chloride 92 L Carbon Dioxide 31 H Anion Gap 19 BUN 21 H Creatinine 1.36 Estim Creat Clear Calc 53.9 Estimated GFR 40 POC Glucose 183 H 188 H Random Glucose 146 H Calcium 9.2 D 03/01/21 03/01/21 07:07 11:14 Sodium Potassium Chloride Carbon Dioxide Anion Gap BUN Creatinine Estim Creat Clear Calc Estimated GFR POC Glucose 139 H 188 H Random Glucose Calcium Imaging Radiologist's impression: Impressions Chest X-Ray 03/01/21 09:30 IMPRESSION: Abnormally enlarged cardiac mediastinal silhouette. Differential includes effusion versus cardiomegaly. Clear lung dutta. Progress Note: A&P Assessment and plan (1) CHF (congestive heart failure): Status: Acute (2) Chronic right heart failure: Status: Acute Assessment and Plan: 60-year-old female who has history of right heart failure and diastolic heart failure who is presenting for volume overload and congestive heart failure. She has been on Lasix drip. She was given metolazone yesterday. She has spiked fever since yesterday. She is more hypoxic. Chest x-ray is not showing significant changes. I think we should check CTA chest to make sure she does not have any evolving infection or pulmonary embolism. I would favor continuing diuretics right now but if any concern with blood pressure then can hold diuretics. We will follow along with you. Thank you for allowing me to participate in the care of your patient. Please feel free to contact me if you have any questions. Fall Risk Details Current Medications: Current Medications Generic Name Dose Route Start Last Admin Trade Name Freq PRN Reason Stop Dose Admin Acetaminophen 650 mg 02/24/21 18:22 03/01/21 07:55 Acetaminophen 325 Mg Tablet PO 650 mg Q6H PRN Administration Pain, Mild (Pain Scale 1-3) Albuterol Sulfate 2 puff 02/24/21 17:50 Albuterol Sulfate 90 Mcg 8 Gm Inhaler INHALE Q4H PRN Shortness Of Breath Atorvastatin Calcium 10 mg 02/24/21 21:00 02/28/21 20:41 Atorvastatin Calcium 10 Mg Tablet PO 10 mg BEDTIME SARAHI Administration Dextrose 25 gm 02/25/21 01:56 Dextrose 50 % 25 Gm/50 Ml Vial IVPUSH Q15M PRN per Hypoglycemia Standing Ord. Protocol Docusate Sodium 100 mg 02/25/21 21:00 03/01/21 07:52 Docusate Sodium 100 Mg Capsule PO 100 mg BID SARAHI Administration Enoxaparin Sodium 40 mg 02/25/21 15:00 02/28/21 16:57 Enoxaparin Sodium 40 Mg/0.4 Ml Syringe SUBCUT 40 mg Q24H SARAHI Administration Fluticasone/Vilanterol 1 puff 02/25/21 08:00 03/01/21 08:39 Fluticasone/Vilanterol 200/25 Blst.W.Dev INHALE 1 puff RDAILY SARAHI Administration Gabapentin 300 mg 02/24/21 21:00 03/01/21 07:52 Gabapentin 300 Mg Capsule PO 300 mg TID SARAHI Administration Glucose 15 gm 02/25/21 01:56 Glucose Gel 15 Gm Gel..Gram. PO Q15M PRN per Hypoglycemia Standing Ord. Protocol Insulin Glargine 10 unit 02/24/21 21:00 02/28/21 20:49 Insulin Glargine,Hum.Rec.Anlog 100 Unit/Ml 10 Ml Vial SUBCUT 10 unit BEDTIME SARAHI Administration Insulin Human Lispro 0 unit 02/25/21 07:30 03/01/21 07:42 Insulin Lispro 100 Unit/Ml 3 Ml Vial SUBCUT Not Given QIDACHS [facility] Protocol Metolazone 2.5 mg 02/24/21 17:50 Metolazone 2.5 Mg Tablet PO MoWeFr@0900 PRN Edema Montelukast Sodium 10 mg 02/24/21 21:00 02/28/21 20:41 Montelukast Sodium 10 Mg Tablet PO 10 mg BEDTIME SARAHI Administration Omeprazole 40 mg 02/24/21 17:50 02/28/21 07:28 Omeprazole 40 Mg Capsule.Dr PO 40 mg BEDTIME PRN Administration Acid Reflux Ondansetron HCl 4 mg 02/24/21 18:22 02/28/21 07:27 Ondansetron Hcl 4 Mg/2 Ml Vial IVPUSH 4 mg Q8H PRN Administration Nausea and Vomiting Oxycodone HCl 5 mg 02/28/21 10:23 02/28/21 22:42 Oxycodone Hcl Immed Release 5 Mg Tablet PO 5 mg Q6H PRN Administration Pain, Moderate (Pain Scale 4-6 Pharmacy Consult 1 each 02/24/21 15:52 Consult Rx Perform Med Rec MISCELLANE ONCE PRN Consult order Polyethylene Glycol 17 gm 02/25/21 11:55 03/01/21 07:58 Polyethylene Glycol 3350 17 Gm Powd.Pack PO Not Given DAILY SARAHI Potassium Chloride 40 meq 02/27/21 11:35 03/01/21 07:52 Potassium Chloride Er 20 Meq Tab.Er.Prt PO 40 meq DAILY SARAHI Administration Sodium Chloride 3 ml 02/25/21 00:00 03/01/21 07:53 0.9 % Sodium Chloride Flush 3 Ml Syringe IVFLUSH 3 ml QSHIFT SARAHI Administration Time Spent With Patient Time: Total time spent is greater than 50% in coordination of care (as documented) at patient's floor/unit and/or counseling patient: Time with patient: 15 - 24 minutes Progress Note: Quality Stroke Does the patient have a stroke diagnosis?: No Procedures Date of Service Date of Service: 03/01/21
[2021-03-01 12:00] VITALS: BP 100/75; PULSE 96; RESP 19; TEMP 36.7; O2SAT 92
--- NOTE | 2021-03-01 13:26 | P.PNIM_ITS ---
Subjective Subjective Date of Service: 03/01/21 Interval History: Seen and examined this morning Follow-up for CHF Observed sitting up in bed with no oxygen on and in no acute distress. Reported no shortness of breath or chest pain. Short time after my evaluation was called by nurse that patient was hypoxic with O2 saturation 90% on 5 L and low-grade fever of 100.8. Review of Systems Review of Systems: Yes all other systems are reviewed and are negative Constitutional Constitutional: Denies chills and Denies fever(s) Cardiovascular Cardiovascular: Denies chest pain Respiratory Respiratory: Denies cough Gastrointestinal Gastrointestinal: Denies abdominal pain Physical Exam Vital Signs: Vital Signs: Last Vital Signs Temp 98.0 F 03/01/21 12:00 Pulse 96 03/01/21 12:00 Resp 19 03/01/21 12:00 BP 100/75 03/01/21 12:00 Pulse Ox 92 03/01/21 12:00 Body Mass Index 46.0 Const: Nutritional Appearance: well nourished Orientation/consciousness: patient oriented x3 HENMT: Head: Yes normocephalic and Yes atraumatic Eyes: Sclerae: sclerae normal Chest: Chest palpation & inspection: normal inspection of the chest Resp: Other: bibasilar rales Effort & Inspection: normal respiratory effort and no respiratory distress Cardio: Jugular venous distension: JVD Rate: regular rate Rhythm: regular rhythm GI: Palpation (GI): Soft to palpation and nontender Neuro: General: patient oriented x3 Cranial nerves: Yes CN's II-XII intact bilaterally and Yes Bilaterally intact EOM present Extrem: Other: trace edema b/l lower extremities Objective Data Current Medications Generic Name Dose Route Start Last Admin Trade Name Freq PRN Reason Stop Dose Admin Acetaminophen 650 mg 02/24/21 18:22 03/01/21 07:55 Acetaminophen 325 Mg Tablet PO 650 mg Q6H PRN Administration Pain, Mild (Pain Scale 1-3) Albuterol Sulfate 2 puff 02/24/21 17:50 Albuterol Sulfate 90 Mcg 8 Gm Inhaler INHALE Q4H PRN Shortness Of Breath Atorvastatin Calcium 10 mg 02/24/21 21:00 02/28/21 20:41 Atorvastatin Calcium 10 Mg Tablet PO 10 mg BEDTIME SARAHI Administration Dextrose 25 gm 02/25/21 01:56 Dextrose 50 % 25 Gm/50 Ml Vial IVPUSH Q15M PRN per Hypoglycemia Standing Ord. Protocol Docusate Sodium 100 mg 02/25/21 21:00 03/01/21 07:52 Docusate Sodium 100 Mg Capsule PO 100 mg BID SARAHI Administration Enoxaparin Sodium 40 mg 02/25/21 15:00 02/28/21 16:57 Enoxaparin Sodium 40 Mg/0.4 Ml Syringe SUBCUT 40 mg Q24H SARAHI Administration Fluticasone/Vilanterol 1 puff 02/25/21 08:00 03/01/21 08:39 Fluticasone/Vilanterol 200/25 Blst.W.Dev INHALE 1 puff RDAILY SARAHI Administration Gabapentin 300 mg 02/24/21 21:00 03/01/21 07:52 Gabapentin 300 Mg Capsule PO 300 mg TID SARAHI Administration Glucose 15 gm 02/25/21 01:56 Glucose Gel 15 Gm Gel..Gram. PO Q15M PRN per Hypoglycemia Standing Ord. Protocol Insulin Glargine 10 unit 02/24/21 21:00 02/28/21 20:49 Insulin Glargine,Hum.Rec.Anlog 100 Unit/Ml 10 Ml Vial SUBCUT 10 unit BEDTIME SARAHI Administration Insulin Human Lispro 0 unit 02/25/21 07:30 03/01/21 12:10 Insulin Lispro 100 Unit/Ml 3 [facility]BCUT [facility] Protocol Metolazone 2.5 mg 02/24/21 17:50 Metolazone 2.5 Mg Tablet PO MoWeFr@0900 PRN Edema Montelukast Sodium 10 mg 02/24/21 21:00 02/28/21 20:41 Montelukast Sodium 10 Mg Tablet PO 10 mg BEDTIME SARAHI Administration Omeprazole 40 mg 02/24/21 17:50 02/28/21 07:28 Omeprazole 40 Mg Capsule.Dr PO 40 mg BEDTIME PRN Administration Acid Reflux Ondansetron HCl 4 mg 02/24/21 18:22 02/28/21 07:27 Ondansetron Hcl 4 Mg/2 Ml Vial IVPUSH 4 mg Q8H PRN Administration Nausea and Vomiting Oxycodone HCl 5 mg 02/28/21 10:23 02/28/21 22:42 Oxycodone Hcl Immed Release 5 Mg Tablet PO 5 mg Q6H PRN Administration Pain, Moderate (Pain Scale 4-6 Pharmacy Consult 1 each 02/24/21 15:52 Consult Rx Perform Med Rec MISCELLANE ONCE PRN Consult order Polyethylene Glycol 17 gm 02/25/21 11:55 03/01/21 07:58 Polyethylene Glycol 3350 17 Gm Powd.Pack PO Not Given DAILY SARAHI Potassium Chloride 40 meq 02/27/21 11:35 03/01/21 07:52 Potassium Chloride Er 20 Meq Tab.Er.Prt PO 40 meq DAILY SARAHI Administration Sodium Chloride 3 ml 02/25/21 00:00 03/01/21 07:53 0.9 % Sodium Chloride Flush 3 Ml Syringe IVFLUSH 3 ml QSHIFT SARAHI Administration Labs CBC & Chem 7: 02/25/21 05:21 03/01/21 06:12 Labs: Laboratory Results - last 24 hr 02/28/21 02/28/21 03/01/21 16:10 20:21 06:12 Anion Gap 19 Estim Creat Clear Calc 53.9 Estimated GFR 40 POC Glucose 183 H 188 H Random Glucose 146 H Calcium 9.2 D 03/01/21 03/01/21 07:07 11:14 Anion Gap Estim Creat Clear Calc Estimated GFR POC Glucose 139 H 188 H Random Glucose Calcium Assessment and Plan (1) CHF (congestive heart failure): Status: Acute (2) Hypoxia: Status: Acute Assessment and Plan: 60-year-old woman admitted with acute on chronic congestive heart failure Acute respiratory failure with hypoxia Repeat chest x-ray Shows clear lung dutta, will obtain CTA to rule out PE Acute Right heart failure -4L since admission diuresing well on lasix gtt -- continue at 10mg/hr i/o, daily weight f/u chem cardiology following JACKSON cpap at night -- reports she has been 100% compliant at home ordered here but didnt wear as mask not appropriate size, recommended to her to bring hers in from home DM On [place], Tiffanyity at home -continue Lantus, SSI Constipation miralax colace Hyperbilirubinemia chronic, likely fatty liver (see ct from November) Hypokalemia repleted Full Code DVT pptx, Lovenox Attending-Dr. Gold Quality Stroke Does the patient have a stroke diagnosis?: No VTE Prior VTE?: No VTE Risk Level:: Medical - moderate - high VTE Device Contraindication: Treatment Not Tolerated VTE Drug Contraindication: N/A - Med Ordered
[2021-03-01] MEDS: iohexoL 350 MG/ML 100 ML INFUS..BTL IV (15:56)
[2021-03-01 16:00] VITALS: BP 130/72; PULSE 100; RESP 15; TEMP 36.6; O2SAT 98
[2021-03-01] MEDS: Enoxaparin Sodium 40 MG/0.4 ML SYRINGE SUBCUT (16:27)
[2021-03-01 16:32] LABS: Glucose, Whole Blood 184 mg/dL (60-115)
[2021-03-01] MEDS: Insulin Lispro 100 UNIT/ML 3 ML VIAL SUBCUT ×2 (16:43→21:36)
[2021-03-01] MEDS: levoFLOXacin/D5W 750 MG/150 ML PIGGYBACK 100 MG IV (17:50)
[2021-03-01 20:00] VITALS: BP 112/86; PULSE 90; RESP 18; TEMP 36.1; O2SAT 95
[2021-03-01 20:51] LABS: Glucose, Whole Blood 200 mg/dL (60-115)
[2021-03-01] MEDS: Atorvastatin Calcium 10 MG TABLET PO (21:35)
[2021-03-01] MEDS: Apixaban 5 MG TABLET 10 MG PO (21:35)
[2021-03-01] MEDS: Montelukast Sodium 10 MG TABLET PO (21:35)
[2021-03-01] MEDS: Insulin Glargine,Hum.rec.anlog 100 UNIT/ML 10 ML VIAL 10 UNIT SUBCUT (21:36)
[2021-03-01] MEDS: oxyCODONE HCl Immed Release 5 MG TABLET PO (21:40)
[2021-03-02] VITALS (8 sets, daily range): BP systolic 92–119; BP diastolic 48–71; PULSE 84–100; RESP 18–20; TEMP 36–37.2; O2SAT 92–96
[2021-03-02] MEDS: 0.9 % Sodium Chloride Flush 3 ML SYRINGE IVFLUSH ×4 (00:37→23:45)
[2021-03-02 07:37] LABS: Hematocrit 41.3 % (37-47); Hemoglobin 12.6 g/dl (12.0-16.0); Mean Corpuscular HGB Conc 30.5 g/dl (31.0-35.0); Mean Corpuscular Hemoglobin 28.4 pg (27.0-33.0); Mean Corpuscular Volume 93.2 fL (80-98); Mean Platelet Volume 10.6 fL (9.4-12.3); Platelet Count 274 X10*3/uL (160-400); Red Blood Count 4.43 X10*6/uL (4.20-5.50); Red Cell Distribution Width 15.7 % (11.0-16.0); White Blood Count 10.1 X10*3/uL (4.8-10.8)
[2021-03-02 07:41] LABS: Glucose, Whole Blood 184 mg/dL (60-115)
[2021-03-02] MEDS: Apixaban 5 MG TABLET 10 MG PO ×2 (08:01→21:17)
[2021-03-02] MEDS: Docusate Sodium 100 MG CAPSULE PO ×2 (08:01→21:26)
[2021-03-02] MEDS: Gabapentin 300 MG CAPSULE PO ×3 (08:01→21:17)
[2021-03-02] MEDS: polyethylene glycoL 3350 17 GM POWD.PACK PO (08:01)
[2021-03-02] MEDS: Insulin Lispro 100 UNIT/ML 3 ML VIAL SUBCUT ×3 (08:02→21:19)
[2021-03-02] MEDS: Fluticasone/Vilanterol 200/25 BLST.W.DEV 1 PUFF INHALE (08:05)
[2021-03-02 08:06] LABS: Anion Gap 15 (12-20); Blood Urea Nitrogen 25 mg/dL (9-16); Calcium 9.1 mg/dL (8.4-10.2); Carbon Dioxide 35 mmol/L (22-29); Chloride 91 mmol/L (96-108); Creatinine Clr Calc Pharmacy 58.7; Estimated Glomerular Filt Rate 44; Glucose Random 160 mg/dL (60-115); Potassium 4.4 mmol/L (3.3-5.1); Sodium 137 mmol/L (135-145)
[2021-03-02 11:23] LABS: MRSA Nasal PCR NEGATIVE (Negative); SA Nasal PCR POSITIVE (Negative)
[2021-03-02 11:26] LABS: Glucose, Whole Blood 288 mg/dL (60-115)
--- NOTE | 2021-03-02 11:38 | PM.PNCARD ---
Subjective Subjective Date of Service: 03/02/21 Principal diagnosis: CHF, pulmonary HTN Interval history: Frustrated due to multiple medical issues. CTA showed PE, on apixaban now. Lasix gtt was stopped. Physical Exam Vital Signs: Last Vital Signs Temp 96.8 F 03/02/21 11:00 Pulse 89 03/02/21 11:00 Resp 19 03/02/21 11:00 BP 105/65 03/02/21 11:00 Pulse Ox 92 03/02/21 11:00 Body Mass Index 46.0 GENERAL APPEARANCE: in no acute distress, pleasant. NECK: no carotid bruit, + jugular venous distention. SKIN: no suspicious lesions, warm and dry. HEART: no murmurs, regular rate and rhythm. LUNGS:? Few crackles at bases. ABDOMEN: soft, nontender. EXTREMITIES:? mild edema. PERIPHERAL PULSES: equal. NEUROLOGIC: No gross deficits, AAO X 3 Results Labs and Meds Result diagrams: 03/02/21 06:24 03/02/21 06:24 Lab results: Laboratory Results - last 24 hr 03/01/21 03/01/21 03/01/21 16:28 18:48 20:47 WBC RBC Hgb Hct MCV MCH MCHC RDW Plt Count MPV Absolute Nucleated RBC Nucleated RBC % (auto) Sodium Potassium Chloride Carbon Dioxide Anion Gap BUN Creatinine Estim Creat Clear Calc Estimated GFR POC Glucose 184 H 200 H Random Glucose Calcium Nasal Screen MRSA (PCR) NEGATIVE Nasal S. aureus Screen POSITIVE A Nasal MRSA/S.aureus Interp SEE NOTE 03/02/21 03/02/21 03/02/21 06:24 06:24 07:35 WBC 10.1 RBC 4.43 Hgb 12.6 Hct 41.3 MCV 93.2 MCH 28.4 MCHC 30.5 L RDW 15.7 Plt Count 274 MPV 10.6 Absolute Nucleated RBC 0.000 Nucleated RBC % (auto) 0.0 Sodium 137 Potassium 4.4 Chloride 91 L Carbon Dioxide 35 H Anion Gap 15 BUN 25 H Creatinine 1.25 Estim Creat Clear Calc 58.7 Estimated GFR 44 POC Glucose 184 H Random Glucose 160 H Calcium 9.1 Nasal Screen MRSA (PCR) Nasal S. aureus Screen Nasal MRSA/S.aureus Interp 03/02/21 11:01 WBC RBC Hgb Hct MCV MCH MCHC RDW Plt Count MPV Absolute Nucleated RBC Nucleated RBC % (auto) Sodium Potassium Chloride Carbon Dioxide Anion Gap BUN Creatinine Estim Creat Clear Calc Estimated GFR POC Glucose 288 H Random Glucose Calcium Nasal Screen MRSA (PCR) Nasal S. aureus Screen Nasal MRSA/S.aureus Interp Imaging Radiologist's impression: Impressions Chest CTA 03/01/21 15:40 IMPRESSION: Subsegmental pulmonary embolism within the lateral aspect of the posterior segment of the right upper lobe. No other pulmonary emboli are identified. Dilated main pulmonary artery suggestive of pulmonary arterial hypertension. Cardiac enlargement, particularly of the right heart with reflux of contrast into the hepatic veins. These findings, as well as dilation of the pulmonary artery, are suggestive of right heart dysfunction which could be correlated with echocardiography. There are left lower lobe airspace opacities and airways thickening which may be compatible with pneumonia. Interval decrease in the size of the previously described right upper lobe pulmonary nodule which now measures 3 mm. VTE: positive Findings were communicated by telephone with WINDY Garcia by Brendan Li M.D. at 1646 hours. Progress Note: A&P Assessment and plan (1) Chronic right heart failure: Status: Acute (2) Pulmonary embolism: Status: Acute Assessment and Plan: 60-year-old female with right sided heart failure and pulm HTN. Admitted with CHF and was diuresed with IV lasix gtt. fever, hypoxia yesterday. CTA showed PE. On Apixaban now. PO Lasix 80 mg BID. I think legs should be scanned to assess clot burden because with severe pulm HTN and RV issues she may not tolerate another event. Will follow along. Fall Risk Details Current Medications: Current Medications Generic Name Dose Route Start Last Admin Trade Name Freq PRN Reason Stop Dose Admin Acetaminophen 650 mg 02/24/21 18:22 03/01/21 16:44 Acetaminophen 325 Mg Tablet PO 650 mg Q6H PRN Administration Pain, Mild (Pain Scale 1-3) Albuterol Sulfate 2 puff 02/24/21 17:50 Albuterol Sulfate 90 Mcg 8 Gm Inhaler INHALE Q4H PRN Shortness Of Breath Apixaban 10 mg 03/01/21 21:00 03/02/21 08:01 Apixaban 5 Mg Tablet PO 03/08/21 20:59 10 mg BID SARAHI Administration Atorvastatin Calcium 10 mg 02/24/21 21:00 03/01/21 21:35 Atorvastatin Calcium 10 Mg Tablet PO 10 mg BEDTIME SARAHI Administration Dextrose 25 gm 02/25/21 01:56 Dextrose 50 % 25 Gm/50 Ml Vial IVPUSH Q15M PRN per Hypoglycemia Standing Ord. Protocol Docusate Sodium 100 mg 02/25/21 21:00 03/02/21 08:01 Docusate Sodium 100 Mg Capsule PO 100 mg BID SARAHI Administration Fluticasone/Vilanterol 1 puff 02/25/21 08:00 03/02/21 08:05 Fluticasone/Vilanterol 200/25 Blst.W.Dev INHALE 1 puff RDAILY SARAHI Administration Gabapentin 300 mg 02/24/21 21:00 03/02/21 08:01 Gabapentin 300 Mg Capsule PO 300 mg TID SARAHI Administration Glucose 15 gm 02/25/21 01:56 Glucose Gel 15 Gm Gel..Gram. PO Q15M PRN per Hypoglycemia Standing Ord. Protocol Levofloxacin 750 mg in 150 mls @ 100 mls/hr 03/01/21 17:00 03/01/21 19:46 Levaquin IV Infused Q24H SARAHI Infusion Insulin Glargine 10 unit 02/24/21 21:00 03/01/21 21:36 Insulin Glargine,Hum.Rec.Anlog 100 Unit/Ml 10 Ml Vial SUBCUT 10 unit BEDTIME SARAHI Administration Insulin Human Lispro 0 unit 02/25/21 07:30 03/02/21 11:29 Insulin Lispro 100 Unit/Ml 3 Ml Vial SUBCUT 6 unit QIDACHS SARAHI Administration Protocol Metolazone 2.5 mg 02/24/21 17:50 Metolazone 2.5 Mg Tablet PO MoWeFr@0900 PRN Edema Montelukast Sodium 10 mg 02/24/21 21:00 03/01/21 21:35 Montelukast Sodium 10 Mg Tablet PO 10 mg BEDTIME SARAHI Administration Omeprazole 40 mg 02/24/21 17:50 02/28/21 07:28 Omeprazole 40 Mg Capsule.Dr PO 40 mg BEDTIME PRN Administration Acid Reflux Ondansetron HCl 4 mg 02/24/21 18:22 02/28/21 07:27 Ondansetron Hcl 4 Mg/2 Ml Vial IVPUSH 4 mg Q8H PRN Administration Nausea and Vomiting Oxycodone HCl 5 mg 02/28/21 10:23 03/01/21 21:40 Oxycodone Hcl Immed Release 5 Mg Tablet PO 5 mg Q6H PRN Administration Pain, Moderate (Pain Scale 4-6 Pharmacy Consult 1 each 02/24/21 15:52 Consult Rx Perform Med Rec MISCELLANE ONCE PRN Consult order Polyethylene Glycol 17 gm 02/25/21 11:55 03/02/21 08:01 Polyethylene Glycol 3350 17 Gm Powd.Pack PO 17 gm DAILY SARAHI Administration Sodium Chloride 3 ml 02/25/21 00:00 03/02/21 08:02 0.9 % Sodium Chloride Flush 3 Ml Syringe IVFLUSH 3 ml QSHIFT SARAHI Administration Time Spent With Patient Time: Total time spent is greater than 50% in coordination of care (as documented) at patient's floor/unit and/or counseling patient: Time with patient: 15 - 24 minutes Progress Note: Quality Stroke Does the patient have a stroke diagnosis?: No Procedures Date of Service Date of Service: 03/02/21
--- NOTE | 2021-03-02 12:59 | HO.PM.IMPN ---
Subjective Subjective Date of Service: 03/02/21 Interval History: seen and examined this morning was not feeling well the past two days, improvement this morning improvement in right leg pain no cough, no fever/chills Review of Systems Review of Systems: Yes all other systems are reviewed and are negative Constitutional Constitutional: Denies chills and Denies fever(s) Cardiovascular Cardiovascular: Denies chest pain Respiratory Respiratory: Denies cough Gastrointestinal Gastrointestinal: Denies abdominal pain Physical Exam Vital Signs: Vital Signs: Last Vital Signs Temp 96.8 F 03/02/21 11:00 Pulse 89 03/02/21 11:00 Resp 19 03/02/21 11:00 BP 105/65 03/02/21 11:00 Pulse Ox 92 03/02/21 11:00 Body Mass Index 46.0 Const: Nutritional Appearance: well nourished Orientation/consciousness: patient oriented x3 HENMT: Head: Yes normocephalic and Yes atraumatic Eyes: Sclerae: sclerae normal Chest: Chest palpation & inspection: normal inspection of the chest Resp: Other: bibasilar rales Effort & Inspection: normal respiratory effort and no respiratory distress Cardio: Jugular venous distension: JVD Rate: regular rate Rhythm: regular rhythm GI: Palpation (GI): Soft to palpation and nontender Neuro: General: patient oriented x3 Cranial nerves: Yes CN's II-XII intact bilaterally and Yes Bilaterally intact EOM present Extrem: Other: right > left leg edema Objective Data Current Medications Generic Name Dose Route Start Last Admin Trade Name Freq PRN Reason Stop Dose Admin Acetaminophen 650 mg 02/24/21 18:22 03/01/21 16:44 Acetaminophen 325 Mg Tablet PO 650 mg Q6H PRN Administration Pain, Mild (Pain Scale 1-3) Albuterol Sulfate 2 puff 02/24/21 17:50 Albuterol Sulfate 90 Mcg 8 Gm Inhaler INHALE Q4H PRN Shortness Of Breath Apixaban 10 mg 03/01/21 21:00 03/02/21 08:01 Apixaban 5 Mg Tablet PO 03/08/21 20:59 10 mg BID SARAHI Administration Atorvastatin Calcium 10 mg 02/24/21 21:00 03/01/21 21:35 Atorvastatin Calcium 10 Mg Tablet PO 10 mg BEDTIME SARAHI Administration Dextrose 25 gm 02/25/21 01:56 Dextrose 50 % 25 Gm/50 Ml Vial IVPUSH Q15M PRN per Hypoglycemia Standing Ord. Protocol Docusate Sodium 100 mg 02/25/21 21:00 03/02/21 08:01 Docusate Sodium 100 Mg Capsule PO 100 mg BID SARAHI Administration Fluticasone/Vilanterol 1 puff 02/25/21 08:00 03/02/21 08:05 Fluticasone/Vilanterol 200/25 Blst.W.Dev INHALE 1 puff RDAILY SARAHI Administration Furosemide 80 mg 03/02/21 18:00 Furosemide 40 Mg Tablet PO BID@0900,1800 [facility] Protocol Gabapentin 300 mg 02/24/21 21:00 03/02/21 08:01 Gabapentin 300 Mg Capsule PO 300 mg TID SARAHI Administration Glucose 15 gm 02/25/21 01:56 Glucose Gel 15 Gm Gel..Gram. PO Q15M PRN per Hypoglycemia Standing Ord. Protocol Levofloxacin 750 mg in 150 mls @ 100 mls/hr 03/01/21 17:00 03/01/21 19:46 Levaquin IV Infused Q24H [facility] Infusion Insulin Glargine 10 unit 02/24/21 21:00 03/01/21 21:36 Insulin Glargine,Hum.Rec.Anlog 100 Unit/Ml 10 Ml Vial SUBCUT 10 unit BEDTIME SARAHI Administration Insulin Human Lispro 0 unit 02/25/21 07:30 03/02/21 11:29 Insulin Lispro 100 Unit/Ml 3 Ml Vial SUBCUT 6 unit QIDACHS SARAHI Administration Protocol Metolazone 2.5 mg 02/24/21 17:50 Metolazone 2.5 Mg Tablet PO MoWeFr@0900 PRN Edema Montelukast Sodium 10 mg 02/24/21 21:00 03/01/21 21:35 Montelukast Sodium 10 Mg Tablet PO 10 mg BEDTIME SARAHI Administration Omeprazole 40 mg 02/24/21 17:50 02/28/21 07:28 Omeprazole 40 Mg Capsule.Dr PO 40 mg BEDTIME PRN Administration Acid Reflux Ondansetron HCl 4 mg 02/24/21 18:22 02/28/21 07:27 Ondansetron Hcl 4 Mg/2 Ml Vial IVPUSH 4 mg Q8H PRN Administration Nausea and Vomiting Oxycodone HCl 5 mg 02/28/21 10:23 03/01/21 21:40 Oxycodone Hcl Immed Release 5 Mg Tablet PO 5 mg Q6H PRN Administration Pain, Moderate (Pain Scale 4-6 Pharmacy Consult 1 each 02/24/21 15:52 Consult Rx Perform Med Rec MISCELLANE ONCE PRN Consult order Polyethylene Glycol 17 gm 02/25/21 11:55 03/02/21 08:01 Polyethylene Glycol 3350 17 Gm Powd.Pack PO 17 gm DAILY SARAHI Administration Sodium Chloride 3 ml 02/25/21 00:00 03/02/21 08:02 0.9 % Sodium Chloride Flush 3 Ml Syringe IVFLUSH 3 ml QSHIFT SARAHI Administration Labs CBC & Chem 7: 03/02/21 06:24 03/02/21 06:24 Labs: Laboratory Results - last 24 hr 03/01/21 03/01/21 03/01/21 16:28 18:48 20:47 MCV MCH MCHC RDW Plt Count MPV Absolute Nucleated RBC Nucleated RBC % (auto) Anion Gap Estim Creat Clear Calc Estimated GFR POC Glucose 184 H 200 H Random Glucose Calcium Nasal Screen MRSA (PCR) NEGATIVE Nasal S. aureus Screen POSITIVE A Nasal MRSA/S.aureus Interp SEE NOTE 03/02/21 03/02/21 03/02/21 06:24 06:24 07:35 MCV 93.2 MCH 28.4 MCHC 30.5 L RDW 15.7 Plt Count 274 MPV 10.6 Absolute Nucleated RBC 0.000 Nucleated RBC % (auto) 0.0 Anion Gap 15 Estim Creat Clear Calc 58.7 Estimated GFR 44 POC Glucose 184 H Random Glucose 160 H Calcium 9.1 Nasal Screen MRSA (PCR) Nasal S. aureus Screen Nasal MRSA/S.aureus Interp 03/02/21 11:01 MCV MCH MCHC RDW Plt Count MPV Absolute Nucleated RBC Nucleated RBC % (auto) Anion Gap Estim Creat Clear Calc Estimated GFR POC Glucose 288 H Random Glucose Calcium Nasal Screen MRSA (PCR) Nasal S. aureus Screen Nasal MRSA/S.aureus Interp Assessment and Plan (1) Pulmonary embolism: Status: Acute (2) CHF (congestive heart failure): Status: Acute Assessment and Plan: 60-year-old woman admitted with acute on chronic congestive heart failure Acute respiratory failure with hypoxia Multifactorial related to CHF, PE, PNA wean o2 as tolerated PE subsegmental PE RUL -will check bilateral leg us to eval for dvt -AC with ELiquis 10 mg bid x 7 days, then 5 bid PNA No sepsis -continue IV levaquin started 03/01 Acute Right heart failure -4L since admission lasix drip stopped, change to 80 mg po bid i/o, daily weight f/u chem cardiology following JACKSON cpap at night -- reports she has been 100% compliant at home ordered here but didnt wear as mask not appropriate size, recommended to her to bring hers in from home COPD no wheezing, no exacerbation -prn breathing treatments DM On [place], Trulicity at home, NF -continue Lantus, SSI Constipation miralax colace Hyperbilirubinemia chronic, likely fatty liver (see ct from November) Hypokalemia repleted Full Code DVT pptx, Lovenox Attending-Dr. Gold Quality Stroke Does the patient have a stroke diagnosis?: No VTE Prior VTE?: No VTE Risk Level:: Medical - moderate - high VTE Device Contraindication: Treatment Not Tolerated VTE Drug Contraindication: N/A - Med Ordered
[2021-03-02] MEDS: oxyCODONE HCl Immed Release 5 MG TABLET PO ×2 (13:28→21:16)
[2021-03-02 16:23] LABS: Glucose, Whole Blood 141 mg/dL (60-115)
[2021-03-02] MEDS: levoFLOXacin/D5W 750 MG/150 ML PIGGYBACK 100 MG IV (17:15)
[2021-03-02] MEDS: Furosemide 40 MG TABLET 80 MG PO (17:15)
[2021-03-02] MEDS: Acetaminophen 325 MG TABLET 650 MG PO (18:18)
[2021-03-02 20:08] LABS: Glucose, Whole Blood 227 mg/dL (60-115)
[2021-03-02] MEDS: Montelukast Sodium 10 MG TABLET PO (21:17)
[2021-03-02] MEDS: Atorvastatin Calcium 10 MG TABLET PO (21:18)
[2021-03-02] MEDS: Insulin Glargine,Hum.rec.anlog 100 UNIT/ML 10 ML VIAL 10 UNIT SUBCUT (21:18)
[2021-03-03] VITALS (7 sets, daily range): BP systolic 101–136; BP diastolic 59–94; PULSE 73–100; RESP 18–20; TEMP 36.3–36.9; O2SAT 91–95; BMI 46.0
[2021-03-03] MEDS: ondansetron HCL 4 MG/2 ML VIAL IVPUSH (04:26)
[2021-03-03 05:10] LABS: Hematocrit 40.2 % (37-47); Hemoglobin 12.4 g/dl (12.0-16.0); Mean Corpuscular HGB Conc 30.8 g/dl (31.0-35.0); Mean Corpuscular Hemoglobin 28.6 pg (27.0-33.0); Mean Corpuscular Volume 92.8 fL (80-98); Mean Platelet Volume 10.4 fL (9.4-12.3); Platelet Count 301 X10*3/uL (160-400); Red Blood Count 4.33 X10*6/uL (4.20-5.50); Red Cell Distribution Width 15.7 % (11.0-16.0)
[2021-03-03 05:40] LABS: Anion Gap 16 (12-20); Blood Urea Nitrogen 25 mg/dL (9-16); Calcium 9.1 mg/dL (8.4-10.2); Carbon Dioxide 36 mmol/L (22-29); Chloride 90 mmol/L (96-108); Creatinine Clr Calc Pharmacy 65.5; Estimated Glomerular Filt Rate 50; Glucose Random 126 mg/dL (60-115); Potassium 3.4 mmol/L (3.3-5.1); Sodium 139 mmol/L (135-145)
[2021-03-03 07:20] LABS: Glucose, Whole Blood 172 mg/dL (60-115)
[2021-03-03] MEDS: Fluticasone/Vilanterol 200/25 BLST.W.DEV 1 PUFF INHALE (07:33)
[2021-03-03] MEDS: Insulin Lispro 100 UNIT/ML 3 ML VIAL SUBCUT ×3 (07:57→21:30)
[2021-03-03] MEDS: 0.9 % Sodium Chloride Flush 3 ML SYRINGE IVFLUSH (07:58)
[2021-03-03] MEDS: Furosemide 40 MG TABLET 80 MG PO ×2 (09:37→17:26)
[2021-03-03] MEDS: polyethylene glycoL 3350 17 GM POWD.PACK PO (09:37)
[2021-03-03] MEDS: Gabapentin 300 MG CAPSULE PO ×3 (09:37→21:26)
[2021-03-03] MEDS: Docusate Sodium 100 MG CAPSULE PO ×2 (09:37→21:26)
[2021-03-03] MEDS: Apixaban 5 MG TABLET 10 MG PO ×2 (09:38→21:26)
[2021-03-03] MEDS: Acetaminophen 325 MG TABLET 650 MG PO ×2 (09:42→21:29)
--- NOTE | 2021-03-03 10:16 | PM.PNCARD ---
Subjective Subjective Date of Service: 03/03/21 <SOPHIA Liu - Last Filed: 03/03/21 11:48> 03/03/21 <Tom Pedro MD - Last Filed: 03/03/21 13:47> Principal diagnosis: CHF, pulmonary HTN, PE <SOPHIA Liu - Last Filed: 03/03/21 11:48> Interval history: Cardiology follow up for CHF, pulm HTN. Seen at 0825. Today she reports feeling better overall. Breathing is comfortable. No cough, no fever. No chest pains, palpitation, dizziness. Leg swelling improved. Foot pains are better. Slept well and ate breakfast. Wearing O2 with cannula, sat 91% <SOPHIA Liu - Last Filed: 03/03/21 11:48> Review of Systems Review of Systems as above <SOPHIA Liu - Last Filed: 03/03/21 11:48> Physical Exam Vital Signs: Last Vital Signs Temp 98.0 F 03/03/21 07:23 Pulse 93 03/03/21 07:23 Resp 19 03/03/21 07:23 BP 136/94 H 03/03/21 07:23 Pulse Ox 91 L 03/03/21 07:23 Body Mass Index 46.0 <SOPHIA Liu - Last Filed: 03/03/21 11:48> Const General: cooperative, no acute distress, alert and awake <SOPHIA Liu - Last Filed: 03/03/21 11:48> Orientation/consciousness: patient oriented x3 <SOPHIA Liu - Last Filed: 03/03/21 11:48> HENMT Head: Yes normal to inspection <SOPHIA Liu - Last Filed: 03/03/21 11:48> Neck Neck: Yes normal visual inspection and Yes no JVD <SOPHIA Liu - Last Filed: 03/03/21 11:48> Resp Effort & Inspection: normal respiratory effort, able to speak in complete sentences and not labored <SOPHIA Liu - Last Filed: 03/03/21 11:48> Auscultation: clear to auscultation bilaterally, no rales, no rhonchi and no wheezes <RADHA LiuC - Last Filed: 03/03/21 11:48> Cardio Rate: regular rate <EssieRADHA Angeles - Last Filed: 03/03/21 11:48> Rhythm: regular rhythm <Essie JASMIN Ortiz - Last Filed: 03/03/21 11:48> Heart sounds: S1 normal heart sound present and S2 normal heart sound present <Essiehank Ortiz NP - Last Filed: 03/03/21 11:48> Peripheral pulses: Peripheral pulses 2+ throughout <Essie JASMIN Ortiz - Last Filed: 03/03/21 11:48> GI Inspection: Yes normal to inspection <Essie Ortiz NP - Last Filed: 03/03/21 11:48> Skin General skin exam: no rashes or lesions noted <Essie JASMIN Ortiz - Last Filed: 03/03/21 11:48> Neuro General: patient oriented x3 <Essie JASMIN Ortiz - Last Filed: 03/03/21 11:48> Extrem General: Yes normal to inspection and No edema <Essie JASMIN Ortiz - Last Filed: 03/03/21 11:48> Results Labs and Meds Result diagrams: : 03/03/21 04:20 03/03/21 04:20 <Essie Ortiz NP - Last Filed: 03/03/21 11:48> Lab results: Laboratory Results - last 24 hr 03/01/21 03/02/21 03/02/21 18:48 11:01 16:14 WBC RBC Hgb Hct MCV MCH MCHC RDW Plt Count MPV Absolute Nucleated RBC Nucleated RBC % (auto) Sodium Potassium Chloride Carbon Dioxide Anion Gap BUN Creatinine Estim Creat Clear Calc Estimated GFR POC Glucose 288 H 141 H Random Glucose Calcium Nasal Screen MRSA (PCR) NEGATIVE Nasal S. aureus Screen POSITIVE A Nasal MRSA/S.aureus Interp SEE NOTE 03/02/21 03/03/21 03/03/21 20:04 04:20 04:20 WBC 9.0 RBC 4.33 Hgb 12.4 Hct 40.2 MCV 92.8 MCH 28.6 MCHC 30.8 L RDW 15.7 Plt Count 301 MPV 10.4 Absolute Nucleated RBC 0.000 Nucleated RBC % (auto) 0.0 Sodium 139 Potassium 3.4 D Chloride 90 L Carbon Dioxide 36 H Anion Gap 16 BUN 25 H Creatinine 1.12 Estim Creat Clear Calc 65.5 Estimated GFR 50 POC Glucose 227 H Random Glucose 126 H Calcium 9.1 Nasal Screen MRSA (PCR) Nasal S. aureus Screen Nasal MRSA/S.aureus Interp 03/03/21 07:17 WBC RBC Hgb Hct MCV MCH MCHC RDW Plt Count MPV Absolute Nucleated RBC Nucleated RBC % (auto) Sodium Potassium Chloride Carbon Dioxide Anion Gap BUN Creatinine Estim Creat Clear Calc Estimated GFR POC Glucose 172 H Random Glucose Calcium Nasal Screen MRSA (PCR) Nasal S. aureus Screen Nasal MRSA/S.aureus Interp <RADHA LiuC - Last Filed: 03/03/21 11:48> Imaging Radiologist's impression: Impressions Venous Duplex 03/02/21 14:55 IMPRESSION: No DVT demonstrated in either lower extremity. <RADHA LiuC - Last Filed: 03/03/21 11:48> Progress Note: A&P Assessment and plan (1) CHF (congestive heart failure): Status: Acute <RADHA LiuC - Last Filed: 03/03/21 11:48> Assessment and Plan: Acute on Chronic right heart failure in patient with JACKSON, severe pulm HTN. Admit with sob, edema. Echo 02/25 shows EF 55-60%, flattened septum consistent with RV pressure overload, mild decrease RV systolic function, RA severely dilated, mod TR, severe pulm HTN.?Was diuresed with IV lasix with fluid balance 4300cc since admit.?Sat 91% on 2 liters.? She reports leg edema much improved. Breathing comfortable. Has not been up walking in room. Continue Lasix at 80mg po bid. Continue strict I+O monitoring, close monitoring of electrolyte and kidney function with replacement as warranted.? Continue O2 supplement as needed for sat > 90%. BNP in am. We will follow. <RADHA LiuC - Last Filed: 03/03/21 11:48> Acute on Chronic right heart failure in patient with JACKSON, severe pulm HTN. Admit with sob, edema. Echo 02/25 shows EF 55-60%, flattened septum consistent with RV pressure overload, mild decrease RV systolic function, RA severely dilated, mod TR, severe pulm HTN.?Was diuresed with IV lasix with fluid balance 4300cc since admit.?Sat 91% on 2 liters.? She reports leg edema much improved. Breathing comfortable. Has not been up walking in room. Continue Lasix at 80mg po bid. Continue strict I+O monitoring, close monitoring of electrolyte and kidney function with replacement as warranted.? Continue O2 supplement as needed for sat > 90%. BNP in am. We will follow. Patient seen and examined. Case discussed with Essie. Heart failure symptoms have resolved. Although has significant pulmonary hypertension which is persistent. RV systolic function is mildly decreased. She has on top of that pulmonary embolism causing hypoxia. Continue treatment for pulmonary embolism. Question pulmonary hypertension related to chronic thromboembolic pulmonary disease. Will discuss with Dr. Cruz. Continue oxygen supplementation pulmonary optimization. Will schedule follow-up patient follow-up. <Tom Pedro MD - Last Filed: 03/03/21 13:47> (2) Pulmonary hypertension: Status: Acute <SOPHIA Liu - Last Filed: 03/03/21 11:48> Assessment and Plan: Follows with Dr Cruz as outpt <SOPHIA Liu - Last Filed: 03/03/21 11:48> (3) Pulmonary embolism: Status: Acute <SOPHIA Liu - Last Filed: 03/03/21 11:48> Assessment and Plan: Hypoxia this admit and increased 2 days ago. CTA of chest did show VTE+, right upper lobe. She was started on Eliquis for anticoagulation. US legs shows No DVT. Sat 91% on 2 liters this am. Does not wear O2 at home. Continue O2 supplement as needed. <SOPHIA Liu - Last Filed: 03/03/21 11:48> (4) Acute respiratory failure with hypoxia: Status: Acute <SOPHIA Liu - Last Filed: 03/03/21 11:48> Fall Risk Details Current Medications: Current Medications Generic Name Dose Route Start Last Admin Trade Name Freq PRN Reason Stop Dose Admin Acetaminophen 650 mg 02/24/21 18:22 03/03/21 09:42 Acetaminophen 325 Mg Tablet PO 650 mg Q6H PRN Administration Pain, Mild (Pain Scale 1-3) Albuterol Sulfate 2 puff 02/24/21 17:50 Albuterol Sulfate 90 Mcg 8 Gm Inhaler INHALE Q4H PRN Shortness Of Breath Albuterol/Ipratropium 3 ml 03/02/21 13:25 Albuterol/Iprat 2.5/0.5mg 3 Ml Ampul.Neb INHALE Q6H PRN Shortness of Breath Apixaban 10 mg 03/01/21 21:00 03/03/21 09:38 Apixaban 5 Mg Tablet PO 03/08/21 20:59 10 mg BID SARAHI Administration Atorvastatin Calcium 10 mg 02/24/21 21:00 03/02/21 21:18 Atorvastatin Calcium 10 Mg Tablet PO 10 mg BEDTIME SARAHI Administration Dextrose 25 gm 02/25/21 01:56 Dextrose 50 % 25 Gm/50 Ml Vial IVPUSH Q15M PRN per Hypoglycemia Standing Ord. Protocol Docusate Sodium 100 mg 02/25/21 21:00 03/03/21 09:37 Docusate Sodium 100 Mg Capsule PO 100 mg BID SARAHI Administration Fluticasone/Vilanterol 1 puff 02/25/21 08:00 03/03/21 07:33 Fluticasone/Vilanterol 200/25 Blst.W.Dev INHALE 1 puff RDAILY SARAHI Administration Furosemide 80 mg 03/02/21 18:00 03/03/21 09:37 Furosemide 40 Mg Tablet PO 80 mg BID@0900,1800 SARAHI Administration Protocol Gabapentin 300 mg 02/24/21 21:00 03/03/21 09:37 Gabapentin 300 Mg Capsule PO 300 mg TID SARAHI Administration Glucose 15 gm 02/25/21 01:56 Glucose Gel 15 Gm Gel..Gram. PO Q15M PRN per Hypoglycemia Standing Ord. Protocol Levofloxacin 750 mg in 150 mls @ 100 mls/hr 03/01/21 17:00 03/02/21 19:20 Levaquin IV Infused Q24H SARAHI Infusion Insulin Glargine 10 unit 02/24/21 21:00 03/02/21 21:18 Insulin Glargine,Hum.Rec.Anlog 100 Unit/Ml 10 Ml Vial SUBCUT 10 unit BEDTIME SARAHI Administration Insulin Human Lispro 0 unit 02/25/21 07:30 03/03/21 07:57 Insulin Lispro 100 Unit/Ml 3 Ml Vial SUBCUT 2 unit QIDACHS SARAHI Administration Protocol Metolazone 2.5 mg 02/24/21 17:50 Metolazone 2.5 Mg Tablet PO MoWeFr@0900 PRN Edema Montelukast Sodium 10 mg 02/24/21 21:00 03/02/21 21:17 Montelukast Sodium 10 Mg Tablet PO 10 mg BEDTIME SARAHI Administration Omeprazole 40 mg 02/24/21 17:50 02/28/21 07:28 Omeprazole 40 Mg Capsule.Dr PO 40 mg BEDTIME PRN Administration Acid Reflux Ondansetron HCl 4 mg 02/24/21 18:22 03/03/21 04:26 Ondansetron Hcl 4 Mg/2 Ml Vial IVPUSH 4 mg Q8H PRN Administration Nausea and Vomiting Oxycodone HCl 5 mg 02/28/21 10:23 03/02/21 21:16 Oxycodone Hcl Immed Release 5 Mg Tablet PO 5 mg Q6H PRN Administration Pain, Moderate (Pain Scale 4-6 Pharmacy Consult 1 each 02/24/21 15:52 Consult Rx Perform Med Rec MISCELLANE ONCE PRN Consult order Polyethylene Glycol 17 gm 02/25/21 11:55 03/03/21 09:37 Polyethylene Glycol 3350 17 Gm Powd.Pack PO 17 gm DAILY SARAHI Administration Sodium Chloride 3 ml 02/25/21 00:00 03/03/21 07:58 0.9 % Sodium Chloride Flush 3 Ml Syringe IVFLUSH 3 ml QSHIFT SARAHI Administration <SOPHIA Liu - Last Filed: 03/03/21 11:48> Time Spent With Patient Time: Total time spent is greater than 50% in coordination of care (as documented) at patient's floor/unit and/or counseling patient: 24 <SOPHIA Liu Last Filed: 03/03/21 11:48> Time with patient: 15 - 24 minutes <SOPHIA Liu Last Filed: 03/03/21 11:48> Progress Note: Quality Stroke Does the patient have a stroke diagnosis?: No <SOPHIA Liu Filed: 03/03/21 11:48> Procedures Date of Service Date of Service: 03/03/21 <SOPHIA Liu - Last Filed: 03/03/21 11:48>
--- NOTE | 2021-03-03 10:23 | HO.PM.IMPN ---
Subjective Subjective Date of Service: 03/03/21 Interval History: seen and examined this AM feels better compared to the last few days denies cough or sob Review of Systems General - no fevers or chills Cardiovascular - no chest pain Respiratory - no shortness of breath or cough Abdominal- no abdominal pain, nausea, vomiting, diarrhea Physical Exam Vital Signs: Vital Signs: Last Vital Signs Temp 98.0 F 03/03/21 07:23 Pulse 93 03/03/21 07:23 Resp 19 03/03/21 07:23 BP 136/94 H 03/03/21 07:23 Pulse Ox 91 L 03/03/21 07:23 Body Mass Index 46.0 Const: Nutritional Appearance: well nourished Orientation/consciousness: patient oriented x3 HENMT: Head: Yes normocephalic and Yes atraumatic Eyes: Sclerae: sclerae normal Chest: Chest palpation & inspection: normal inspection of the chest Resp: Other: bibasilar rales Effort & Inspection: normal respiratory effort and no respiratory distress Cardio: Jugular venous distension: JVD Rate: regular rate Rhythm: regular rhythm GI: Palpation (GI): Soft to palpation and nontender Neuro: General: patient oriented x3 Cranial nerves: Yes CN's II-XII intact bilaterally and Yes Bilaterally intact EOM present Extrem: Other: right > left leg edema Objective Data Current Medications Generic Name Dose Route Start Last Admin Trade Name Freq PRN Reason Stop Dose Admin Acetaminophen 650 mg 02/24/21 18:22 03/03/21 09:42 Acetaminophen 325 Mg Tablet PO 650 mg Q6H PRN Administration Pain, Mild (Pain Scale 1-3) Albuterol Sulfate 2 puff 02/24/21 17:50 Albuterol Sulfate 90 Mcg 8 Gm Inhaler INHALE Q4H PRN Shortness Of Breath Albuterol/Ipratropium 3 ml 03/02/21 13:25 Albuterol/Iprat 2.5/0.5mg 3 Ml Ampul.Neb INHALE Q6H PRN Shortness of Breath Apixaban 10 mg 03/01/21 21:00 03/03/21 09:38 Apixaban 5 Mg Tablet PO 03/08/21 20:59 10 mg BID SARAHI Administration Atorvastatin Calcium 10 mg 02/24/21 21:00 03/02/21 21:18 Atorvastatin Calcium 10 Mg Tablet PO 10 mg BEDTIME SARAHI Administration Dextrose 25 gm 02/25/21 01:56 Dextrose 50 % 25 Gm/50 Ml Vial IVPUSH Q15M PRN per Hypoglycemia Standing Ord. Protocol Docusate Sodium 100 mg 02/25/21 21:00 03/03/21 09:37 Docusate Sodium 100 Mg Capsule PO 100 mg BID SARAHI Administration Fluticasone/Vilanterol 1 puff 02/25/21 08:00 03/03/21 07:33 Fluticasone/Vilanterol 200/25 Blst.W.Dev INHALE 1 puff RDAILY SARAHI Administration Furosemide 80 mg 03/02/21 18:00 03/03/21 09:37 Furosemide 40 Mg Tablet PO 80 mg BID@0900,1800 SARAHI Administration Protocol Gabapentin 300 mg 02/24/21 21:00 03/03/21 09:37 Gabapentin 300 Mg Capsule PO 300 mg TID SARAHI Administration Glucose 15 gm 02/25/21 01:56 Glucose Gel 15 Gm Gel..Gram. PO Q15M PRN per Hypoglycemia Standing Ord. Protocol Levofloxacin 750 mg in 150 mls @ 100 mls/hr 03/01/21 17:00 03/02/21 19:20 Levaquin IV Infused Q24H SARAHI Infusion Insulin Glargine 10 unit 02/24/21 21:00 03/02/21 21:18 Insulin Glargine,Hum.Rec.Anlog 100 Unit/Ml 10 Ml Vial SUBCUT 10 unit BEDTIME SARAHI Administration Insulin Human Lispro 0 unit 02/25/21 07:30 03/03/21 07:57 Insulin Lispro 100 Unit/Ml 3 Ml Vial SUBCUT 2 unit QIDACHS SARAHI Administration Protocol Metolazone 2.5 mg 02/24/21 17:50 Metolazone 2.5 Mg Tablet PO MoWeFr@0900 PRN Edema Montelukast Sodium 10 mg 02/24/21 21:00 03/02/21 21:17 Montelukast Sodium 10 Mg Tablet PO 10 mg BEDTIME SARAHI Administration Omeprazole 40 mg 02/24/21 17:50 02/28/21 07:28 Omeprazole 40 Mg Capsule.Dr PO 40 mg BEDTIME PRN Administration Acid Reflux Ondansetron HCl 4 mg 02/24/21 18:22 03/03/21 04:26 Ondansetron Hcl 4 Mg/2 Ml Vial IVPUSH 4 mg Q8H PRN Administration Nausea and Vomiting Oxycodone HCl 5 mg 02/28/21 10:23 03/02/21 21:16 Oxycodone Hcl Immed Release 5 Mg Tablet PO 5 mg Q6H PRN Administration Pain, Moderate (Pain Scale 4-6 Pharmacy Consult 1 each 02/24/21 15:52 Consult Rx Perform Med Rec MISCELLANE ONCE PRN Consult order Polyethylene Glycol 17 gm 02/25/21 11:55 03/03/21 09:37 Polyethylene Glycol 3350 17 Gm Powd.Pack PO 17 gm DAILY SARAHI Administration Sodium Chloride 3 ml 02/25/21 00:00 03/03/21 07:58 0.9 % Sodium Chloride Flush 3 Ml Syringe IVFLUSH 3 ml QSHIFT SARAHI Administration Labs CBC & Chem 7: 03/03/21 04:20 03/03/21 04:20 Labs: Laboratory Results - last 24 hr 03/01/21 03/02/21 03/02/21 18:48 11:01 16:14 MCV MCH MCHC RDW Plt Count MPV Absolute Nucleated RBC Nucleated RBC % (auto) Anion Gap Estim Creat Clear Calc Estimated GFR POC Glucose 288 H 141 H Random Glucose Calcium Nasal Screen MRSA (PCR) NEGATIVE Nasal S. aureus Screen POSITIVE A Nasal MRSA/S.aureus Interp SEE NOTE 03/02/21 03/03/21 03/03/21 20:04 04:20 04:20 MCV 92.8 MCH 28.6 MCHC 30.8 L RDW 15.7 Plt Count 301 MPV 10.4 Absolute Nucleated RBC 0.000 Nucleated RBC % (auto) 0.0 Anion Gap 16 Estim Creat Clear Calc 65.5 Estimated GFR 50 POC Glucose 227 H Random Glucose 126 H Calcium 9.1 Nasal Screen MRSA (PCR) Nasal S. aureus Screen Nasal MRSA/S.aureus Interp 03/03/21 07:17 MCV MCH MCHC RDW Plt Count MPV Absolute Nucleated RBC Nucleated RBC % (auto) Anion Gap Estim Creat Clear Calc Estimated GFR POC Glucose 172 H Random Glucose Calcium Nasal Screen MRSA (PCR) Nasal S. aureus Screen Nasal MRSA/S.aureus Interp Assessment and Plan (1) Pulmonary embolism: Status: Acute Assessment and Plan: 60-year-old woman admitted with acute on chronic congestive heart failure Acute respiratory failure with hypoxia Multifactorial related to CHF, PE, PNA wean o2 as tolerated -- may need home o2 eval PE subsegmental PE RUL, DVT negative Eliquis 10mg BID x 7 days, followed by 5mg bid PNA No sepsis day #3 levaquin Acute Right heart failure -4.3L since admission lasix drip stopped, change to 80 mg po bid i/o, daily weight f/u chem cardiology following [facility] cpap at night -- reports she has been 100% compliant at home ordered here but didnt wear as mask not appropriate size, recommended to her to bring hers in from home COPD no wheezing, no exacerbation -prn breathing treatments DM On Toujeo, Trulicity at home, NF -continue Lantus, SSI Constipation miralax colace Hyperbilirubinemia chronic, likely fatty liver (see ct from November) Hypokalemia repleted Weakness PT eval Full Code DVT pptx - on eliquis dispo: home vs STR in the next 24-48 hours Quality Stroke Does the patient have a stroke diagnosis?: No VTE Prior VTE?: No VTE Risk Level:: Medical - moderate - high VTE Device Contraindication: Treatment Not Tolerated VTE Drug Contraindication: N/A - Med Ordered
[2021-03-03 11:00] LABS: Glucose, Whole Blood 268 mg/dL (60-115)
--- NOTE | 2021-03-03 12:23 | MHC.CM.PN ---
Female DX HF and new PE. DP Home with new HVNA if needed. A PT eval will help to assess for STR. Family is providing transportation home. CM will follow.
[2021-03-03 16:12] LABS: Glucose, Whole Blood 129 mg/dL (60-115)
[2021-03-03] MEDS: levoFLOXacin/D5W 750 MG/150 ML PIGGYBACK 100 MG IV (17:29)
[2021-03-03 20:16] LABS: Glucose, Whole Blood 211 mg/dL (60-115)
[2021-03-03] MEDS: Montelukast Sodium 10 MG TABLET PO (21:26)
[2021-03-03] MEDS: Atorvastatin Calcium 10 MG TABLET PO (21:26)
[2021-03-03] MEDS: oxyCODONE HCl Immed Release 5 MG TABLET PO (21:28)
[2021-03-03] MEDS: Insulin Glargine,Hum.rec.anlog 100 UNIT/ML 10 ML VIAL 10 UNIT SUBCUT (21:30)
[2021-03-04] VITALS (9 sets, daily range): BP systolic 100–127; BP diastolic 54–75; PULSE 81–101; RESP 18–20; TEMP 36.2–37.3; O2SAT 93–95; BMI 45.1
[2021-03-04] MEDS: 0.9 % Sodium Chloride Flush 3 ML SYRINGE IVFLUSH ×4 (00:16→21:15)
[2021-03-04 04:46] LABS: B Type Natriuretic Peptide 934 pg/mL (<100)
[2021-03-04 07:26] LABS: Glucose, Whole Blood 172 mg/dL (60-115)
[2021-03-04] MEDS: Gabapentin 300 MG CAPSULE PO ×3 (08:10→21:13)
[2021-03-04] MEDS: Apixaban 5 MG TABLET 10 MG PO ×2 (08:11→21:13)
[2021-03-04] MEDS: Insulin Lispro 100 UNIT/ML 3 ML VIAL SUBCUT ×4 (08:11→21:14)
[2021-03-04] MEDS: Furosemide 40 MG TABLET 80 MG PO ×2 (08:11→16:34)
[2021-03-04] MEDS: Docusate Sodium 100 MG CAPSULE PO ×2 (08:11→21:13)
[2021-03-04] MEDS: Fluticasone/Vilanterol 200/25 BLST.W.DEV 1 PUFF INHALE (08:33)
[2021-03-04] MEDS: oxyCODONE HCl Immed Release 5 MG TABLET PO ×2 (10:15→21:13)
[2021-03-04 11:12] LABS: Glucose, Whole Blood 282 mg/dL (60-115)
--- NOTE | 2021-03-04 13:10 | HO.PM.IMPN ---
Subjective Subjective Date of Service: 03/04/21 Interval History: tired today ENT Ears, Nose, Mouth, and Throat: Reports system reviewed and no additional complaints, except as documented Cardiovascular Cardiovascular: Reports no additional cardiovascular complaints Physical Exam Vital Signs: Vital Signs: Last Vital Signs Temp 97.5 F 03/04/21 11:01 Pulse 95 03/04/21 11:01 Resp 18 03/04/21 11:01 BP 100/59 L 03/04/21 11:01 Pulse Ox 94 03/04/21 11:01 Body Mass Index 45.1 Nutritional Appearance:?well nourished Orientation/consciousness:?patient oriented x3 HENMT Head:?Yes normocephalic and Yes atraumatic Eyes Sclerae:?sclerae normal Chest Chest palpation & inspection:?normal inspection of the chest Resp Other:?bibasilar rales Effort & Inspection:?normal respiratory effort and no respiratory distress Cardio Jugular venous distension:?JVD Rate:?regular rate Rhythm:?regular rhythm GI Palpation (GI):?Soft to palpation and nontender Neuro General:?patient oriented x3 Cranial nerves:?Yes CN's II-XII intact bilaterally and Yes Bilaterally intact EOM present Extrem Other:?right > left leg edema Objective Data Current Medications Generic Name Dose Route Start Last Admin Trade Name Freq PRN Reason Stop Dose Admin Acetaminophen 650 mg 02/24/21 18:22 03/03/21 21:29 Acetaminophen 325 Mg Tablet PO 650 mg Q6H PRN Administration Pain, Mild (Pain Scale 1-3) Albuterol Sulfate 2 puff 02/24/21 17:50 Albuterol Sulfate 90 Mcg 8 Gm Inhaler INHALE Q4H PRN Shortness Of Breath Albuterol/Ipratropium 3 ml 03/02/21 13:25 Albuterol/Iprat 2.5/0.5mg 3 Ml Ampul.Neb INHALE Q6H PRN Shortness of Breath Apixaban 10 mg 03/01/21 21:00 03/04/21 08:11 Apixaban 5 Mg Tablet PO 03/08/21 20:59 10 mg BID SARAHI Administration Atorvastatin Calcium 10 mg 02/24/21 21:00 03/03/21 21:26 Atorvastatin Calcium 10 Mg Tablet PO 10 mg BEDTIME SARAHI Administration Dextrose 25 gm 02/25/21 01:56 Dextrose 50 % 25 Gm/50 Ml Vial IVPUSH Q15M PRN per Hypoglycemia Standing Ord. Protocol Docusate Sodium 100 mg 02/25/21 21:00 03/04/21 08:11 Docusate Sodium 100 Mg Capsule PO 100 mg BID SARAHI Administration Fluticasone/Vilanterol 1 puff 02/25/21 08:00 03/04/21 08:33 Fluticasone/Vilanterol 200/25 Blst.W.Dev INHALE 1 puff RDAILY SARAHI Administration Furosemide 80 mg 03/02/21 18:00 03/04/21 08:11 Furosemide 40 Mg Tablet PO 80 mg BID@0900,1800 SARAHI Administration Protocol Gabapentin 300 mg 02/24/21 21:00 03/04/21 08:10 Gabapentin 300 Mg Capsule PO 300 mg TID SARAHI Administration Glucose 15 gm 02/25/21 01:56 Glucose Gel 15 Gm Gel..Gram. PO Q15M PRN per Hypoglycemia Standing Ord. Protocol Levofloxacin 750 mg in 150 mls @ 100 mls/hr 03/01/21 17:00 03/03/21 19:05 Levaquin IV Infused Q24H SARAHI Infusion Insulin Glargine 10 unit 02/24/21 21:00 03/03/21 21:30 Insulin Glargine,Hum.Rec.Anlog 100 Unit/Ml 10 Ml Vial SUBCUT 10 unit BEDTIME SARAHI Administration Insulin Human Lispro 0 unit 02/25/21 07:30 03/04/21 11:16 Insulin Lispro 100 Unit/Ml 3 Ml Vial SUBCUT 6 unit QIDACHS SARAHI Administration Protocol Metolazone 2.5 mg 02/24/21 17:50 Metolazone 2.5 Mg Tablet PO MoWeFr@0900 PRN Edema Montelukast Sodium 10 mg 02/24/21 21:00 03/03/21 21:26 Montelukast Sodium 10 Mg Tablet PO 10 mg BEDTIME SARAHI Administration Omeprazole 40 mg 02/24/21 17:50 02/28/21 07:28 Omeprazole 40 Mg Capsule.Dr PO 40 mg BEDTIME PRN Administration Acid Reflux Ondansetron HCl 4 mg 02/24/21 18:22 03/03/21 04:26 Ondansetron Hcl 4 Mg/2 Ml Vial IVPUSH 4 mg Q8H PRN Administration Nausea and Vomiting Oxycodone HCl 5 mg 02/28/21 10:23 03/04/21 10:15 Oxycodone Hcl Immed Release 5 Mg Tablet PO 5 mg Q6H PRN Administration Pain, Moderate (Pain Scale 4-6 Pharmacy Consult 1 each 02/24/21 15:52 Consult Rx Perform Med Rec MISCELLANE ONCE PRN Consult order Polyethylene Glycol 17 gm 02/25/21 11:55 03/04/21 08:11 Polyethylene Glycol 3350 17 Gm Powd.Pack PO Not Given DAILY SARAHI Sodium Chloride 3 ml 02/25/21 00:00 03/04/21 08:11 0.9 % Sodium Chloride Flush 3 Ml Syringe IVFLUSH 3 ml QSHIFT SARAHI Administration Labs CBC & Chem 7: 03/03/21 04:20 03/03/21 04:20 Labs: Laboratory Results - last 24 hr 03/03/21 03/03/21 03/04/21 16:01 20:13 04:15 POC Glucose 129 H 211 H B-Natriuretic Peptide 934 H 03/04/21 03/04/21 07:12 11:00 POC Glucose 172 H 282 H B-Natriuretic Peptide Microbiology Microbiology Results: Microbiology 03/02/21 13:33 Blood Culture - Preliminary Blood - Venous No growth after 24 hours. 03/02/21 13:33 Blood Culture - Preliminary Blood - Venous No growth after 24 hours. Assessment and Plan (1) Pulmonary embolism: Status: Acute Assessment and Plan: 60-year-old woman admitted with acute on chronic congestive heart failure Acute respiratory failure with hypoxia Multifactorial related to acute on chronic diastolic and right sided CHF, PE, PNA wean o2 as tolerated -- may need home o2, will evaluated PE subsegmental PE RUL, DVT negative Eliquis 10mg BID x 7 days, followed by 5mg bid PNA No sepsis day #4 levaquin Acute Right heart failure changed to 80 mg po bid i/o, daily weight f/u chem cardiology following [facility] cpap at night COPD no wheezing, no exacerbation -prn breathing treatments DM On Toujeo, Trulicity at home, NF -continue Lantus, SSI Constipation miralax colace Hyperbilirubinemia chronic, likely fatty liver (see ct from November) Hypokalemia repleted, monitor Full Code DVT pptx - on eliquis dispo: home vs STR in the next 24-48 hours Quality Stroke Does the patient have a stroke diagnosis?: No VTE Prior VTE?: No VTE Risk Level:: Medical - moderate - high VTE Device Contraindication: Treatment Not Tolerated VTE Drug Contraindication: N/A - Med Ordered
[2021-03-04 16:17] LABS: Glucose, Whole Blood 175 mg/dL (60-115)
[2021-03-04] MEDS: Acetaminophen 325 MG TABLET 650 MG PO (16:34)
[2021-03-04] MEDS: levoFLOXacin/D5W 750 MG/150 ML PIGGYBACK 100 MG IV (16:34)
[2021-03-04 20:06] LABS: Glucose, Whole Blood 229 mg/dL (60-115)
--- NOTE | 2021-03-04 20:53 | ECG_ITS ---
Test Reason : New onset PVC Bigeminy/frequent pac Blood Pressure : / mmHG Vent. Rate : 096 BPM Atrial Rate : 096 BPM P-R Int : 188 ms QRS Dur : 120 ms QT Int : 412 ms P-R-T Axes : 073 119 023 degrees QTc Int : 520 ms Poor data quality, interpretation may be adversely affected Normal sinus rhythm Possible Left atrial enlargement Right atrial enlargement Right axis deviation Low voltage QRS Right bundle branch block Septal infarct , age undetermined Abnormal ECG When compared with ECG of 24-FEB-2021 12:21, No significant change was found Referred By: Lambert Antoine Electronically Signed By:KAYODE DORANTES
[2021-03-04] MEDS: Atorvastatin Calcium 10 MG TABLET PO (21:13)
[2021-03-04] MEDS: Montelukast Sodium 10 MG TABLET PO (21:13)
[2021-03-04] MEDS: Insulin Glargine,Hum.rec.anlog 100 UNIT/ML 10 ML VIAL 10 UNIT SUBCUT (21:14)
[2021-03-05] VITALS (8 sets, daily range): BP systolic 106–117; BP diastolic 55–75; PULSE 78–100; RESP 18–20; TEMP 36.1–36.9; O2SAT 90–94; BMI 45.6
[2021-03-05] MEDS: Acetaminophen 325 MG TABLET 650 MG PO ×2 (01:00→21:15)
--- NOTE | 2021-03-05 01:22 | PC.NURSE ---
pt heart rhythm sinus with bigeminy PVC. MD notified, EKG done. no new orders at this time. VSS. pt hr switched back to sinus rhythm with occasional to frequent PAC. Asymptomatic.
--- NOTE | 2021-03-05 01:24 | PC.NURSE ---
pt reports feeling very anxious around 0115. When asked to explain further what was making her anxious, she stated i feel like I'm taking one step forward and ten steps back. Sat and spoke with patient for a while and reassured her. notified and atarax ordered to calm the anxiety.
[2021-03-05] MEDS: hydrOXYzine HCL 25 MG TABLET PO (01:42)
[2021-03-05 07:04] LABS: Glucose, Whole Blood 163 mg/dL (60-115)
[2021-03-05 07:31] LABS: Hematocrit 41.5 % (37-47); Hemoglobin 12.7 g/dl (12.0-16.0); Mean Corpuscular HGB Conc 30.6 g/dl (31.0-35.0); Mean Corpuscular Hemoglobin 28.2 pg (27.0-33.0); Mean Platelet Volume 10.6 fL (9.4-12.3); Platelet Count 312 X10*3/uL (160-400); Red Blood Count 4.51 X10*6/uL (4.20-5.50); Red Cell Distribution Width 15.6 % (11.0-16.0); White Blood Count 8.8 X10*3/uL (4.8-10.8)
[2021-03-05] MEDS: Fluticasone/Vilanterol 200/25 BLST.W.DEV 1 PUFF INHALE (07:45)
[2021-03-05 07:52] LABS: Blood Urea Nitrogen 29 mg/dL (9-16); Calcium 9.4 mg/dL (8.4-10.2); Estimated Glomerular Filt Rate 43; Glucose Fasting 143 mg/dL (60-99); Magnesium 2.2 mg/dL (1.6-2.6)
[2021-03-05 08:10] LABS: Anion Gap 15 (12-20); Carbon Dioxide 40 mmol/L (22-29); Chloride 85 mmol/L (96-108); Sodium 137 mmol/L (135-145)
[2021-03-05] MEDS: 0.9 % Sodium Chloride Flush 3 ML SYRINGE IVFLUSH ×3 (08:13→21:17)
[2021-03-05] MEDS: Insulin Lispro 100 UNIT/ML 3 ML VIAL SUBCUT ×4 (08:13→21:16)
[2021-03-05] MEDS: Docusate Sodium 100 MG CAPSULE PO ×2 (08:14→21:16)
[2021-03-05] MEDS: Apixaban 5 MG TABLET 10 MG PO ×2 (08:14→21:16)
[2021-03-05] MEDS: Gabapentin 300 MG CAPSULE PO ×3 (08:14→21:16)
[2021-03-05] MEDS: Furosemide 40 MG TABLET 80 MG PO (08:14)
[2021-03-05] MEDS: Potassium Chloride ER 20 MEQ TAB.ER.PRT 40 MEQ PO (09:59)
[2021-03-05] MEDS: acetaZOLAMIDE 250 MG TABLET PO ×3 (09:59→21:16)
[2021-03-05 11:04] LABS: Glucose, Whole Blood 172 mg/dL (60-115)
--- NOTE | 2021-03-05 11:36 | P.DS_ITS ---
DS: Providers Provider Date of Service: 03/07/21 Date of admission: 02/24/21 18:22 Primary care physician: Traci Baxter MD Consults: 02/24/21 18:22 Consult to Cardiology Routine Consulting Provider: Go Jain Reason for consultation: chf Has provider been notified: No DS: Diagnosis Discharge Diagnosis (1) Pulmonary embolism: Status: Acute DS: Summary Hospital Course Hospital Course: Patient was admitted for acute hypoxic respiratory failure secondary to acute on chronic diastolic CHF with right-sided CHF, acute pulmonary embolism, pneumonia. She was started on Eliquis. She has 3 more days of loading dose and then will decrease to 5 mg b.i.d.. For pneumonia she was treated with Levaquin, she will 5 more days of oral Levaquin on discharge. For her CHF she was diuresed with IV Lasix, this was transitioned to 80 mg p.o. b.i.d. which is increased from her 40 mg p.o. b.i.d. at home. Echo showed normal EF with right-sided heart failure and severe pulmonary hypertension, also showed moderately increased left ventricular wall thickness. prior to dc she had home o2 eval and overnight oxymetry with her cpap, she will require 24hr chronic o2 2-3L/min. Patient is doing much better now and will be discharged to [facility]. Time Spent with Patient Time attestation: Total time spent providing and/or coordinating discharge services: Discharge coordination time: Greater than 30 minutes Quality: Stroke Does the patient have a stroke diagnosis?: No Physical Exam Vital Signs: Vital Signs: Last Vital Signs Temp 98.4 F 03/05/21 11:26 Pulse 83 03/05/21 11:26 Resp 18 03/05/21 11:26 BP 109/62 03/05/21 11:26 Pulse Ox 94 03/05/21 11:26 Body Mass Index 45.6 General: AO X 3, no acute distress Resp: diminished CVS: S1,S2,RRR GI: soft, non tender, non distended Neuro: motor grossly intact Psych: appropriate affect DS: Data Data Completed and Pending Completed studies during hospitalization [Text1]: Procedures Resection of Gallbladder, Percutaneous Endoscopic Approach (11/06/20) Labs on day of discharge: Laboratory Results - last 24 hr 03/04/21 03/04/21 03/05/21 16:12 20:01 06:08 WBC 8.8 RBC 4.51 Hgb 12.7 Hct 41.5 MCV 92.0 MCH 28.2 MCHC 30.6 L RDW 15.6 Plt Count 312 MPV 10.6 Absolute Nucleated RBC 0.000 Nucleated RBC % (auto) 0.0 Sodium Potassium Chloride Carbon Dioxide Anion Gap BUN Creatinine Estim Creat Clear Calc Estimated GFR POC Glucose 175 H 229 H Fasting Glucose Calcium Magnesium 03/05/21 03/05/21 03/05/21 06:08 06:59 10:57 WBC RBC Hgb Hct MCV MCH MCHC RDW Plt Count MPV Absolute Nucleated RBC Nucleated RBC % (auto) Sodium 137 Potassium 3.0 L Chloride 85 L Carbon Dioxide 40 H* Anion Gap 15 BUN 29 H Creatinine 1.28 Estim Creat Clear Calc 57.0 Estimated GFR 43 POC Glucose 163 H 172 H Fasting Glucose 143 H Calcium 9.4 Magnesium 2.2 Preliminary micro results at discharge 03/02/21 13:33 Blood Culture - Preliminary Blood - Venous No growth after 48 hours. 03/02/21 13:33 Blood Culture - Preliminary Blood - Venous No growth after 48 hours. Discharge Plan Discharge Patient Disposition: Xfer SNF Discharge Diagnosis: pneumonia, chf, pe Referrals: Traci Baxter MD [Primary Care Provider] - 1 Week (Your doctor's office should be in contact with you to schedule a follow up appointment.) Discharge Medications: New Eliquis 5 mg Tablet 10 mg PO BID 30 Days Qty: 70 RF: 0 potassium chloride 20 mEq tablet extended release 20 meq PO DAILY Qty: 30 RF: 0 levofloxacin 500 mg tablet 500 mg PO DAILY Qty: 5 RF: 0 Continued cholecalciferol (vitamin D3) 125 mcg (5,000 unit) capsule 125 mcg PO DAILY Qty: 90 RF: 3 montelukast 10 mg tablet 10 mg PO BEDTIME Qty: 90 RF: 3 Trulicity 3 mg/0.5 mL pen injector 3 mg subcut QWEEK 30 Days Qty: 2.5 RF: 11 albuterol sulfate [Ventolin HFA] 90 mcg/actuation Hfa Aerosol Inhaler 2 puff INHALATION Q4H PRN (Reason: Shortness Of Breath) RF: 0 budesonide-formoterol [Symbicort] 160-4.5 mcg/actuation Hfa Aerosol Inhaler 2 puff INHALATION BID RF: 0 metolazone 2.5 mg tablet 1 tab PO 3XW PRN (Reason: Edema) RF: 0 atorvastatin 10 mg tablet 10 mg PO BEDTIME RF: 0 gabapentin 100 mg capsule 300 mg PO TID RF: 0 Toujeo SoloStar U-300 Insulin 300 unit/mL (1.5 mL) insulin pen 12 unit subcut BEDTIME RF: 0 omeprazole 40 mg capsule,delayed release(DR/EC) 40 mg PO BEDTIME PRN (Reason: Acid Reflux) RF: 0 Changed furosemide 40 mg tablet 80 mg PO BID@0900,1800 Qty: 180 RF: 5 Discontinued ibuprofen 800 mg tablet 800 mg PO TID PRN (Reason: pain) Qty: 20 RF: 0 Diet: advance to usual diet Activity on Discharge: As tolerated Stand Alone Forms: Patient Portal Discharge page Care Plan Goals: reocvery Health Concerns: chf, pe, pneumonia Plan of Treatment: eliquis as prescribed, 5 more days of levaquin, follow up with cardio Assessment: see above
--- NOTE | 2021-03-05 12:26 | P.PNIM_ITS ---
Subjective Subjective Date of Service: 03/05/21 Interval History: feeling weak ENT Ears, Nose, Mouth, and Throat: Reports system reviewed and no additional complaints, except as documented Cardiovascular Cardiovascular: Reports no additional cardiovascular complaints Physical Exam Vital Signs: Vital Signs: Last Vital Signs Temp 98.4 F 03/05/21 11:26 Pulse 83 03/05/21 11:26 Resp 18 03/05/21 11:26 BP 109/62 03/05/21 11:26 Pulse Ox 94 03/05/21 11:26 Body Mass Index 45.6 General: AO X 3, no acute distress Resp:? diminished CVS: S1,S2,RRR GI: soft, non tender, non distended Neuro:? motor grossly intact Psych: appropriate affect Objective Data Current Medications Generic Name Dose Route Start Last Admin Trade Name Freq PRN Reason Stop Dose Admin Acetaminophen 650 mg 02/24/21 18:22 03/05/21 01:00 Acetaminophen 325 Mg Tablet PO 650 mg Q6H PRN Administration Pain, Mild (Pain Scale 1-3) Acetazolamide 250 mg 03/05/21 09:00 03/05/21 09:59 Acetazolamide 250 Mg Tablet PO 250 mg TID SARAHI Administration Albuterol Sulfate 2 puff 02/24/21 17:50 Albuterol Sulfate 90 Mcg 8 Gm Inhaler INHALE Q4H PRN Shortness Of Breath Albuterol/Ipratropium 3 ml 03/02/21 13:25 Albuterol/Iprat 2.5/0.5mg 3 Ml Ampul.Neb INHALE Q6H PRN Shortness of Breath Apixaban 10 mg 03/01/21 21:00 03/05/21 08:14 Apixaban 5 Mg Tablet PO 03/08/21 20:59 10 mg BID SARAHI Administration Atorvastatin Calcium 10 mg 02/24/21 21:00 03/04/21 21:13 Atorvastatin Calcium 10 Mg Tablet PO 10 mg BEDTIME SARAHI Administration Dextrose 25 gm 02/25/21 01:56 Dextrose 50 % 25 Gm/50 Ml Vial IVPUSH Q15M PRN per Hypoglycemia Standing Ord. Protocol Docusate Sodium 100 mg 02/25/21 21:00 03/05/21 08:14 Docusate Sodium 100 Mg Capsule PO 100 mg BID SARAHI Administration Fluticasone/Vilanterol 1 puff 02/25/21 08:00 03/05/21 07:45 Fluticasone/Vilanterol 200/25 Blst.W.Dev INHALE 1 puff RDAILY SARAHI Administration Furosemide 80 mg 03/02/21 18:00 03/05/21 08:14 Furosemide 40 Mg Tablet PO 80 mg BID@0900,1800 SARAHI Administration Protocol Gabapentin 300 mg 02/24/21 21:00 03/05/21 08:14 Gabapentin 300 Mg Capsule PO 300 mg TID SARAHI Administration Glucose 15 gm 02/25/21 01:56 Glucose Gel 15 Gm Gel..Gram. PO Q15M PRN per Hypoglycemia Standing Ord. Protocol Levofloxacin 750 mg in 150 mls @ 100 mls/hr 03/01/21 17:00 03/04/21 18:17 Levaquin IV Infused Q24H SARAHI Infusion Insulin Glargine 10 unit 02/24/21 21:00 03/04/21 21:14 Insulin Glargine,Hum.Rec.Anlog 100 Unit/Ml 10 Ml Vial SUBCUT [address] [facility] Administration Insulin Human Lispro 0 unit 02/25/21 07:30 03/05/21 12:09 Insulin Lispro 100 Unit/Ml 3 Ml Vial SUBCUT [address] [facility] Administration Protocol Metolazone 2.5 mg 02/24/21 17:50 Metolazone 2.5 Mg Tablet PO MoWeFr@0900 PRN Edema Montelukast Sodium 10 mg 02/24/21 21:00 03/04/21 21:13 Montelukast Sodium 10 Mg Tablet PO 10 mg BEDTIME SARAHI Administration Omeprazole 40 mg 02/24/21 17:50 02/28/21 07:28 Omeprazole 40 Mg Capsule.Dr PO 40 mg BEDTIME PRN Administration Acid Reflux Ondansetron HCl 4 mg 02/24/21 18:22 03/03/21 04:26 Ondansetron Hcl 4 Mg/2 Ml Vial IVPUSH 4 mg Q8H PRN Administration Nausea and Vomiting Pharmacy Consult 1 each 02/24/21 15:52 Consult Rx Perform Med Rec MISCELLANE ONCE PRN Consult order Polyethylene Glycol 17 gm 02/25/21 11:55 03/05/21 08:14 Polyethylene Glycol 3350 17 Gm Powd.Pack PO Not Given DAILY [facility] Sodium Chloride 3 ml 02/25/21 00:00 03/05/21 08:13 0.9 % Sodium Chloride Flush 3 Ml Syringe IVFLUSH 3 ml QSHIFT SARAHI Administration Labs CBC & Chem 7: 03/05/21 06:08 03/05/21 06:08 Labs: Laboratory Results - last 24 hr 03/04/21 03/04/21 03/05/21 16:12 20:01 06:08 MCV 92.0 MCH 28.2 MCHC 30.6 L RDW 15.6 Plt Count 312 MPV 10.6 Absolute Nucleated RBC 0.000 Nucleated RBC % (auto) 0.0 Anion Gap Estim Creat Clear Calc Estimated GFR POC Glucose 175 H 229 H Fasting Glucose Calcium Magnesium 03/05/21 03/05/21 03/05/21 06:08 06:59 10:57 MCV MCH MCHC RDW Plt Count MPV Absolute Nucleated RBC Nucleated RBC % (auto) Anion Gap 15 Estim Creat Clear Calc 57.0 Estimated GFR 43 POC Glucose 163 H 172 H Fasting Glucose 143 H Calcium 9.4 Magnesium 2.2 Microbiology Microbiology Results: Microbiology 03/02/21 13:33 Blood Culture - Preliminary Blood - Venous No growth after 48 hours. 03/02/21 13:33 Blood Culture - Preliminary Blood - Venous No growth after 48 hours. Assessment and Plan (1) Pulmonary embolism: Status: Acute Assessment and Plan: 60-year-old woman admitted with acute on chronic congestive heart failure Acute respiratory failure with hypoxia Multifactorial related to acute on chronic diastolic and right sided CHF, PE, PNA wean o2 as tolerated -- may need home o2, will evaluated on discharge PE subsegmental PE RUL, DVT negative Eliquis 10mg BID x 7 days, followed by 5mg bid PNA No sepsis day #5 levaquin Acute Right heart failure changed to 80 mg po bid (on hold today for diamox for metabolic alkalosis) i/o, daily weight f/u chem cardiology following [facility] cpap at night COPD no wheezing, no exacerbation -prn breathing treatments DM On Toujeo, Trulicity at home, NF -continue Lantus, SSI Constipation miralax colace Hyperbilirubinemia chronic, likely fatty liver (see ct from November) Hypokalemia repleted, monitor Full Code DVT pptx - on eliquis dispo: home vs STR in the next 24-48 hours Quality Stroke Does the patient have a stroke diagnosis?: No VTE Prior VTE?: No VTE Risk Level:: Medical - moderate - high VTE Device Contraindication: Treatment Not Tolerated VTE Drug Contraindication: N/A - Med Ordered
--- NOTE | 2021-03-05 12:27 | P.PNCA_ITS ---
Subjective Subjective Date of Service: 03/05/21 Principal diagnosis: CHF, pulmonary HTN, PE Interval history: Feeling tired Review of Systems Review of Systems Tired, denies shortness of breath Physical Exam Vital Signs: Last Vital Signs Temp 98.4 F 03/05/21 11:26 Pulse 83 03/05/21 11:26 Resp 18 03/05/21 11:26 BP 109/62 03/05/21 11:26 Pulse Ox 94 03/05/21 11:26 Body Mass Index 45.6 GENERAL APPEARANCE: in no acute distress, pleasant. NECK: no carotid bruit, + jugular venous distention. SKIN: no suspicious lesions, warm and dry. HEART: no murmurs, regular rate and rhythm. LUNGS:? Few crackles at bases. ABDOMEN: soft, nontender. EXTREMITIES:? No significant edema PERIPHERAL PULSES: equal. NEUROLOGIC: No gross deficits, AAO X 3 Results Labs and Meds Result diagrams: 03/05/21 06:08 03/05/21 06:08 Lab results: Laboratory Results - last 24 hr 03/04/21 03/04/21 03/05/21 16:12 20:01 06:08 WBC 8.8 RBC 4.51 Hgb 12.7 Hct 41.5 MCV 92.0 MCH 28.2 MCHC 30.6 L RDW 15.6 Plt Count 312 MPV 10.6 Absolute Nucleated RBC 0.000 Nucleated RBC % (auto) 0.0 Sodium Potassium Chloride Carbon Dioxide Anion Gap BUN Creatinine Estim Creat Clear Calc Estimated GFR POC Glucose 175 H 229 H Fasting Glucose Calcium Magnesium 03/05/21 03/05/21 03/05/21 06:08 06:59 10:57 WBC RBC Hgb Hct MCV MCH MCHC RDW Plt Count MPV Absolute Nucleated RBC Nucleated RBC % (auto) Sodium 137 Potassium 3.0 L Chloride 85 L Carbon Dioxide 40 H* Anion Gap 15 BUN 29 H Creatinine 1.28 Estim Creat Clear Calc 57.0 Estimated GFR 43 POC Glucose 163 H 172 H Fasting Glucose 143 H Calcium 9.4 Magnesium 2.2 Progress Note: A&P Assessment and plan (1) Pulmonary embolism: Status: Acute (2) CHF (congestive heart failure): Status: Acute Assessment and Plan: 60-year-old female with background of right heart failure who presented for volume overload and was being diuresed and developed hypoxia leading to CTA showing pulmonary embolism. She has been on Eliquis since then. Clinically fluid status has improved. Agree with sheela Kim. Her electrolytes are abnormal and potentially giving her potassium chloride will improve her. Please monitor closely. Otherwise stable. We are signing off. Thank you for allowing me to participate in the care of your patient. Please feel free to contact me if you have any questions. Fall Risk Details Current Medications: Current Medications Generic Name Dose Route Start Last Admin Trade Name Freq PRN Reason Stop Dose Admin Acetaminophen 650 mg 02/24/21 18:22 03/05/21 01:00 Acetaminophen 325 Mg Tablet PO 650 mg Q6H PRN Administration Pain, Mild (Pain Scale 1-3) Acetazolamide 250 mg 03/05/21 09:00 03/05/21 09:59 Acetazolamide 250 Mg Tablet PO 250 mg TID SARAHI Administration Albuterol Sulfate 2 puff 02/24/21 17:50 Albuterol Sulfate 90 Mcg 8 Gm Inhaler INHALE Q4H PRN Shortness Of Breath Albuterol/Ipratropium 3 ml 03/02/21 13:25 Albuterol/Iprat 2.5/0.5mg 3 Ml Ampul.Neb INHALE Q6H PRN Shortness of Breath Apixaban 10 mg 03/01/21 21:00 03/05/21 08:14 Apixaban 5 Mg Tablet PO 03/08/21 20:59 10 mg BID SARAHI Administration Atorvastatin Calcium 10 mg 02/24/21 21:00 03/04/21 21:13 Atorvastatin Calcium 10 Mg Tablet PO 10 mg BEDTIME SARAHI Administration Dextrose 25 gm 02/25/21 01:56 Dextrose 50 % 25 Gm/50 Ml Vial IVPUSH Q15M PRN per Hypoglycemia Standing Ord. Protocol Docusate Sodium 100 mg 02/25/21 21:00 03/05/21 08:14 Docusate Sodium 100 Mg Capsule PO 100 mg BID SARAHI Administration Fluticasone/Vilanterol 1 puff 02/25/21 08:00 03/05/21 07:45 Fluticasone/Vilanterol 200/25 Blst.W.Dev INHALE 1 puff RDAILY SARAHI Administration Furosemide 80 mg 03/02/21 18:00 03/05/21 08:14 Furosemide 40 Mg Tablet PO 80 mg BID@0900,1800 SARAHI Administration Protocol Gabapentin 300 mg 02/24/21 21:00 03/05/21 08:14 Gabapentin 300 Mg Capsule PO 300 mg TID SARAHI Administration Glucose 15 gm 02/25/21 01:56 Glucose Gel 15 Gm Gel..Gram. PO Q15M PRN per Hypoglycemia Standing Ord. Protocol Levofloxacin 750 mg in 150 mls @ 100 mls/hr 03/01/21 17:00 03/04/21 18:17 Levaquin IV Infused Q24H SARAHI Infusion Insulin Glargine 10 unit 02/24/21 21:00 03/04/21 21:14 Insulin Glargine,Hum.Rec.Anlog 100 Unit/Ml 10 Ml Vial SUBCUT 10 unit BEDTIME SARAHI Administration Insulin Human Lispro 0 unit 02/25/21 07:30 03/05/21 12:09 Insulin Lispro 100 Unit/Ml 3 Ml Vial SUBCUT 2 unit QIDACHS SARAHI Administration Protocol Metolazone 2.5 mg 02/24/21 17:50 Metolazone 2.5 Mg Tablet PO MoWeFr@0900 PRN Edema Montelukast Sodium 10 mg 02/24/21 21:00 03/04/21 21:13 Montelukast Sodium 10 Mg Tablet PO 10 mg BEDTIME SARAHI Administration Omeprazole 40 mg 02/24/21 17:50 02/28/21 07:28 Omeprazole 40 Mg Capsule.Dr PO 40 mg BEDTIME PRN Administration Acid Reflux Ondansetron HCl 4 mg 02/24/21 18:22 03/03/21 04:26 Ondansetron Hcl 4 Mg/2 Ml Vial IVPUSH 4 mg Q8H PRN Administration Nausea and Vomiting Pharmacy Consult 1 each 02/24/21 15:52 Consult Rx Perform Med Rec MISCELLANE ONCE PRN Consult order Polyethylene Glycol 17 gm 02/25/21 11:55 03/05/21 08:14 Polyethylene Glycol 3350 17 Gm Powd.Pack PO Not Given DAILY [facility] Sodium Chloride 3 ml 02/25/21 00:00 03/05/21 08:13 0.9 % Sodium Chloride Flush 3 Ml Syringe IVFLUSH 3 ml QSHIFT SARAHI Administration Time Spent With Patient Time: Total time spent is greater than 50% in coordination of care (as documented) at patient's floor/unit and/or counseling patient: Time with patient: 15 - 24 minutes Progress Note: Quality Stroke Does the patient have a stroke diagnosis?: No Procedures Date of Service Date of Service: 03/05/21
--- NOTE | 2021-03-05 16:06 | MHC.CM.PN ---
Female 60 DX HF PE Patient worked with PT today. PT is recommending STR. Pt preferences to be obtained for bed search. CM will follow.
[2021-03-05 16:40] LABS: Glucose, Whole Blood 185 mg/dL (60-115)
[2021-03-05] MEDS: levoFLOXacin/D5W 750 MG/150 ML PIGGYBACK 100 MG IV (17:03)
[2021-03-05 20:13] LABS: Glucose, Whole Blood 168 mg/dL (60-115)
[2021-03-05] MEDS: Insulin Glargine,Hum.rec.anlog 100 UNIT/ML 10 ML VIAL 10 UNIT SUBCUT (21:16)
[2021-03-05] MEDS: Atorvastatin Calcium 10 MG TABLET PO (21:16)
[2021-03-05] MEDS: Montelukast Sodium 10 MG TABLET PO (21:16)
[2021-03-06] MEDS: oxyCODONE HCl Immed Release 5 MG TABLET PO ×3 (02:10→20:24)
[2021-03-06 04:00] VITALS: BP 109/62; PULSE 92; RESP 20; TEMP 36.6; O2SAT 84
[2021-03-06 06:00] VITALS: BMI 45.6
[2021-03-06 07:03] VITALS: BP 91/62; PULSE 88; RESP 18; TEMP 36.4; O2SAT 91
[2021-03-06 07:16] LABS: Glucose, Whole Blood 146 mg/dL (60-115)
[2021-03-06 07:58] LABS: Hematocrit 42.4 % (37-47); Hemoglobin 13.4 g/dl (12.0-16.0); Mean Corpuscular HGB Conc 31.6 g/dl (31.0-35.0); Mean Corpuscular Hemoglobin 28.9 pg (27.0-33.0); Mean Corpuscular Volume 91.6 fL (80-98); Mean Platelet Volume 10.5 fL (9.4-12.3); Platelet Count 308 X10*3/uL (160-400); Red Blood Count 4.63 X10*6/uL (4.20-5.50); Red Cell Distribution Width 15.9 % (11.0-16.0); White Blood Count 9.1 X10*3/uL (4.8-10.8)
[2021-03-06 08:33] LABS: Anion Gap 17 (12-20); Blood Urea Nitrogen 29 mg/dL (9-16); Calcium 9.8 mg/dL (8.4-10.2); Carbon Dioxide 37 mmol/L (22-29); Chloride 87 mmol/L (96-108); Creatinine Clr Calc Pharmacy 59.7; Estimated Glomerular Filt Rate 45; Glucose Fasting 144 mg/dL (60-99); Magnesium 2.1 mg/dL (1.6-2.6); Potassium 2.8 mmol/L (3.3-5.1); Sodium 138 mmol/L (135-145)
[2021-03-06] MEDS: Fluticasone/Vilanterol 200/25 BLST.W.DEV 1 PUFF INHALE (08:42)
[2021-03-06 08:45] VITALS: PULSE 89; O2SAT 96
[2021-03-06] MEDS: acetaZOLAMIDE 250 MG TABLET PO ×3 (09:49→20:24)
[2021-03-06] MEDS: Furosemide 40 MG TABLET 80 MG PO ×2 (09:50→18:02)
[2021-03-06] MEDS: 0.9 % Sodium Chloride Flush 3 ML SYRINGE IVFLUSH ×3 (09:50→20:24)
[2021-03-06] MEDS: Docusate Sodium 100 MG CAPSULE PO ×2 (09:50→20:23)
[2021-03-06] MEDS: Apixaban 5 MG TABLET 10 MG PO ×2 (09:50→20:23)
[2021-03-06] MEDS: polyethylene glycoL 3350 17 GM POWD.PACK PO (09:58)
[2021-03-06] MEDS: Potassium Chloride ER 20 MEQ TAB.ER.PRT 40 MEQ PO (10:17)
[2021-03-06] MEDS: Gabapentin 300 MG CAPSULE PO ×3 (10:19→20:24)
[2021-03-06 10:54] VITALS: BP 90/51; PULSE 84; RESP 18; TEMP 36.4; O2SAT 92
[2021-03-06 11:07] LABS: Glucose, Whole Blood 227 mg/dL (60-115)
--- NOTE | 2021-03-06 11:55 | HO.PM.IMPN ---
Subjective Subjective Date of Service: 03/06/21 Interval History: feeling ok today, but weak Cardiovascular Cardiovascular: Reports no additional cardiovascular complaints Respiratory Respiratory: Reports no additional respiratory complaints Physical Exam Vital Signs: Vital Signs: Last Vital Signs Temp 97.6 F 03/06/21 10:54 Pulse 84 03/06/21 10:54 Resp 18 03/06/21 10:54 BP 90/51 L 03/06/21 10:54 Pulse Ox 92 03/06/21 10:54 Body Mass Index 45.6 GENERAL APPEARANCE: in no acute distress, pleasant. NECK: no carotid bruit, + jugular venous distention. SKIN: no suspicious lesions, warm and dry. HEART: no murmurs, regular rate and rhythm. LUNGS:? Few crackles at bases. ABDOMEN: soft, nontender. EXTREMITIES:? No significant edema PERIPHERAL PULSES: equal. NEUROLOGIC: No gross deficits, AAO X 3 Objective Data Active Medications Acetaminophen (Acetaminophen 325 Mg Tablet) 650 mg PO Q6H PRN PRN Reason: Pain, Mild (Pain Scale 1-3) Last Admin: 03/05/21 21:15 Dose: 650 mg Documented by: SOFI Acetazolamide (Acetazolamide 250 Mg Tablet) 250 mg PO TID [facility] Last Admin: 03/06/21 09:49 Dose: 250 mg Documented by: TERENCE Albuterol Sulfate (Albuterol Sulfate 90 Mcg 8 Gm Inhaler) 2 puff INHALE Q4H PRN PRN Reason: Shortness Of Breath Albuterol/Ipratropium (Albuterol/Iprat 2.5/0.5mg 3 Ml Ampul.Neb) 3 ml INHALE Q6H PRN PRN Reason: Shortness of Breath Apixaban (Apixaban 5 Mg Tablet) 10 mg PO BID [facility] Stop: 03/08/21 20:59 Last Admin: 03/06/21 09:50 Dose: 10 mg Documented by: TERENCE Atorvastatin Calcium (Atorvastatin Calcium 10 Mg Tablet) 10 mg PO BEDTIME [facility] Last Admin: 03/05/21 21:16 Dose: 10 mg Documented by: SOFI Dextrose (Dextrose 50 % 25 Gm/50 Ml Vial) 25 gm IVPUSH Q15M PRN; Protocol PRN Reason: per Hypoglycemia Standing Ord. Docusate Sodium (Docusate Sodium 100 Mg Capsule) 100 mg PO BID [facility] Last Admin: 03/06/21 09:50 Dose: 100 mg Documented by: TERENCE Fluticasone/Vilanterol (Fluticasone/Vilanterol 200/25 Blst.W.Dev) 1 puff INHALE RDAILY [facility] Last Admin: 03/06/21 08:42 Dose: 1 puff Documented by: MADELEINE Furosemide (Furosemide 40 Mg Tablet) 80 mg PO BID@0900,1800 [facility]; Protocol Last Admin: 03/06/21 09:50 Dose: 80 mg Documented by: TERENCE Gabapentin (Gabapentin 300 Mg Capsule) 300 mg PO TID [facility] Last Admin: 03/06/21 10:19 Dose: 300 mg Documented by: TERENCE Glucose (Glucose Gel 15 Gm Gel..Gram.) 15 gm PO Q15M PRN; Protocol PRN Reason: per Hypoglycemia Standing Ord. Levofloxacin (Levaquin) 750 mg in 150 mls @ 100 mls/hr IV Q24H [facility] Last Infusion: 03/05/21 18:41 Dose: 0 mls/hr Documented by: RONNIE Insulin Glargine (Insulin Glargine,Hum.Rec.Anlog 100 Unit/Ml 10 Ml Vial) 10 unit SUBCUT BEDTIME [facility] Last Admin: 03/05/21 21:16 Dose: 10 unit Documented by: SOFI Insulin Human Lispro (Insulin Lispro 100 Unit/Ml 3 Ml Vial) 0 unit SUBCUT QIDACHS [facility]; Protocol Last Admin: 03/06/21 07:37 Dose: Not Given Documented by: TERENCE Non-Admin Reason: No Insulin Coverage Metolazone (Metolazone 2.5 Mg Tablet) 2.5 mg PO MoWeFr@0900 PRN PRN Reason: Edema Montelukast Sodium (Montelukast Sodium 10 Mg Tablet) 10 mg PO BEDTIME [facility] Last Admin: 03/05/21 21:16 Dose: 10 mg Documented by: SOFI Omeprazole (Omeprazole 40 Mg Capsule.Dr) 40 mg PO BEDTIME PRN PRN Reason: Acid Reflux Last Admin: 02/28/21 07:28 Dose: 40 mg Documented by: STEVENSON Ondansetron HCl (Ondansetron Hcl 4 Mg/2 Ml Vial) 4 mg IVPUSH Q8H PRN PRN Reason: Nausea and Vomiting Last Admin: 03/03/21 04:26 Dose: 4 mg Documented by: JAN Oxycodone HCl (Oxycodone Hcl Immed Release 5 Mg Tablet) 5 mg PO Q6H PRN PRN Reason: Breakthrough Pain Last Admin: 03/06/21 09:56 Dose: 5 mg Documented by: TERENCE Pharmacy Consult (Consult Rx Perform Med Rec) 1 each MISCELLANE ONCE PRN PRN Reason: Consult order Polyethylene Glycol (Polyethylene Glycol 3350 17 Gm Powd.Pack) 17 gm PO DAILY [facility] Last Admin: 03/06/21 09:58 Dose: 17 gm Documented by: TERENCE Sodium Chloride (0.9 % Sodium Chloride Flush 3 Ml Syringe) 3 ml IVFLUSH QSHIFT [facility] Last Admin: 03/06/21 09:50 Dose: 3 ml Documented by: TERENCE Labs CBC & Chem 7: 03/06/21 07:20 03/06/21 07:20 Labs: Laboratory Results - last 24 hr 03/05/21 03/05/21 03/06/21 16:36 20:10 07:04 MCV MCH MCHC RDW Plt Count MPV Absolute Nucleated RBC Nucleated RBC % (auto) Anion Gap Estim Creat Clear Calc Estimated GFR POC Glucose 185 H 168 H 146 H Fasting Glucose Calcium Magnesium 03/06/21 03/06/21 03/06/21 07:20 07:20 10:59 MCV 91.6 MCH 28.9 MCHC 31.6 RDW 15.9 Plt Count 308 MPV 10.5 Absolute Nucleated RBC 0.000 Nucleated RBC % (auto) 0.0 Anion Gap 17 Estim Creat Clear Calc 59.7 Estimated GFR 45 POC Glucose 227 H Fasting Glucose 144 H Calcium 9.8 Magnesium 2.1 Assessment and Plan (1) Pulmonary embolism: Status: Acute Assessment and Plan: 60-year-old woman admitted with acute on chronic congestive heart failure Acute respiratory failure with hypoxia Multifactorial related to acute on chronic diastolic and right sided CHF, PE, PNA home o2 eval positive, will need chronic o2 supplementation lasix hypokalemia replace and monitor PE subsegmental PE RUL, DVT negative Eliquis 10mg BID x 7 days, followed by 5mg bid PNA No sepsis day #6 levaquin JACKSON cpap at night COPD no wheezing, no exacerbation -prn breathing treatments DM On Toujeo, Trulicity at home, NF -continue Lantus, SSI Constipation miralax colace Hyperbilirubinemia chronic, likely fatty liver (see ct from November) Hypokalemia repleted, monitor Full Code DVT pptx - on eliquis dispo: home vs STR in the next 24-48 hours Quality Stroke Does the patient have a stroke diagnosis?: No VTE Prior VTE?: No VTE Risk Level:: Medical - moderate - high VTE Device Contraindication: Treatment Not Tolerated VTE Drug Contraindication: N/A - Med Ordered
[2021-03-06] MEDS: Insulin Lispro 100 UNIT/ML 3 ML VIAL SUBCUT ×3 (12:05→20:23)
[2021-03-06 15:50] VITALS: BP 126/82; PULSE 95; RESP 19; TEMP 36.3; O2SAT 91
[2021-03-06 16:27] LABS: Glucose, Whole Blood 187 mg/dL (60-115)
[2021-03-06] MEDS: levoFLOXacin/D5W 750 MG/150 ML PIGGYBACK 100 MG IV (16:33)
[2021-03-06] MEDS: Acetaminophen 325 MG TABLET 650 MG PO (16:33)
[2021-03-06 19:46] VITALS: BP 99/63; PULSE 79; RESP 19; TEMP 37; O2SAT 90
[2021-03-06 19:52] LABS: Glucose, Whole Blood 210 mg/dL (60-115)
[2021-03-06] MEDS: Atorvastatin Calcium 10 MG TABLET PO (20:23)
[2021-03-06] MEDS: Montelukast Sodium 10 MG TABLET PO (20:23)
[2021-03-06] MEDS: Insulin Glargine,Hum.rec.anlog 100 UNIT/ML 10 ML VIAL 10 UNIT SUBCUT (20:23)
[2021-03-07] VITALS (10 sets, daily range): BP systolic 92–125; BP diastolic 57–72; PULSE 75–94; RESP 16–18; TEMP 36.3–36.7; O2SAT 90–95; BMI 44.5
[2021-03-07] MEDS: oxyCODONE HCl Immed Release 5 MG TABLET PO ×2 (06:43→20:58)
[2021-03-07 07:33] LABS: Glucose, Whole Blood 190 mg/dL (60-115)
[2021-03-07 07:51] LABS: Anion Gap 17 (12-20); Blood Urea Nitrogen 32 mg/dL (9-16); Calcium 9.2 mg/dL (8.4-10.2); Carbon Dioxide 34 mmol/L (22-29); Chloride 89 mmol/L (96-108); Creatinine Clr Calc Pharmacy 56.1; Estimated Glomerular Filt Rate 43; Glucose Fasting 213 mg/dL (60-99); Magnesium 2.2 mg/dL (1.6-2.6); Potassium 2.8 mmol/L (3.3-5.1); Sodium 137 mmol/L (135-145)
[2021-03-07] MEDS: Gabapentin 300 MG CAPSULE PO ×3 (08:00→20:51)
[2021-03-07] MEDS: polyethylene glycoL 3350 17 GM POWD.PACK PO (08:00)
[2021-03-07] MEDS: Insulin Lispro 100 UNIT/ML 3 ML VIAL SUBCUT ×3 (08:00→17:05)
[2021-03-07] MEDS: acetaZOLAMIDE 250 MG TABLET PO (08:00)
[2021-03-07] MEDS: Furosemide 40 MG TABLET 80 MG PO ×2 (08:00→17:05)
[2021-03-07] MEDS: Docusate Sodium 100 MG CAPSULE PO ×2 (08:00→20:51)
[2021-03-07] MEDS: Apixaban 5 MG TABLET 10 MG PO ×2 (08:00→20:51)
[2021-03-07] MEDS: 0.9 % Sodium Chloride Flush 3 ML SYRINGE IVFLUSH ×3 (08:01→20:56)
[2021-03-07] MEDS: Potassium Chloride ER 20 MEQ TAB.ER.PRT 40 MEQ PO (08:04)
[2021-03-07] MEDS: Fluticasone/Vilanterol 200/25 BLST.W.DEV 1 PUFF INHALE (08:12)
--- NOTE | 2021-03-07 08:56 | MHC.CM.PN ---
Female 60 DX HF PE. Per PT Pt qualifies for STR. Referrals sent out yesterday afternoon. 2/3 have declined. [facility] has not yet responded. More preferences were requested. The Patient is interested in [facility] in [facility]. A referral has been sent to [facility]. Patients family is willing to provide transportation at discharge, if nessessary. CM will follow.
[2021-03-07] MEDS: Potassium Chloride ER 20 MEQ TAB.ER.PRT PO (10:44)
--- NOTE | 2021-03-07 11:00 | P.PNIM_ITS ---
Subjective Subjective Date of Service: 03/07/21 Interval History: weak Cardiovascular Cardiovascular: Reports no additional cardiovascular complaints Respiratory Respiratory: Reports no additional respiratory complaints Physical Exam Vital Signs: Vital Signs: Last Vital Signs Temp 97.5 F 03/07/21 07:52 Pulse 78 03/07/21 09:04 Resp 16 03/07/21 07:52 BP 98/64 03/07/21 09:04 Pulse Ox 92 03/07/21 02:50 Body Mass Index 44.5 GENERAL APPEARANCE: in no acute distress, pleasant. NECK: no carotid bruit, + jugular venous distention. SKIN: no suspicious lesions, warm and dry. HEART: no murmurs, regular rate and rhythm. LUNGS:? Few crackles at bases. ABDOMEN: soft, nontender. EXTREMITIES:? No significant edema PERIPHERAL PULSES: equal. NEUROLOGIC: No gross deficits, AAO X 3 Objective Data Active Medications Acetaminophen (Acetaminophen 325 Mg Tablet) 650 mg PO Q6H PRN PRN Reason: Pain, Mild (Pain Scale 1-3) Last Admin: 03/06/21 16:33 Dose: 650 mg Documented by: TERENCE Acetazolamide (Acetazolamide 250 Mg Tablet) 250 mg PO TID [facility] Last Admin: 03/07/21 08:00 Dose: 250 mg Documented by: TERENCE Albuterol Sulfate (Albuterol Sulfate 90 Mcg 8 Gm Inhaler) 2 puff INHALE Q4H PRN PRN Reason: Shortness Of Breath Albuterol/Ipratropium (Albuterol/Iprat 2.5/0.5mg 3 Ml Ampul.Neb) 3 ml INHALE Q6 H PRN PRN Reason: Shortness of Breath Apixaban (Apixaban 5 Mg Tablet) 10 mg PO BID [facility] Stop: 03/08/21 20:59 Last Admin: 03/07/21 08:00 Dose: 10 mg Documented by: TERENCE Atorvastatin Calcium (Atorvastatin Calcium 10 Mg Tablet) 10 mg PO BEDTIME [facility] Last Admin: 03/06/21 20:23 Dose: 10 mg Documented by: DIXON Dextrose (Dextrose 50 % 25 Gm/50 Ml Vial) 25 gm IVPUSH Q15M PRN; Protocol PRN Reason: per Hypoglycemia Standing Ord. Docusate Sodium (Docusate Sodium 100 Mg Capsule) 100 mg PO BID [facility] Last Admin: 03/07/21 08:00 Dose: 100 mg Documented by: TERENCE Fluticasone/Vilanterol (Fluticasone/Vilanterol 200/25 Blst.W.Dev) 1 puff INHALE RDAILY [facility] Last Admin: 03/07/21 08:12 Dose: 1 puff Documented by: MADELEINE Furosemide (Furosemide 40 Mg Tablet) 80 mg PO BID@0900,1800 [facility]; Protocol Last Admin: 03/07/21 08:00 Dose: 80 mg Documented by: TERENCE Gabapentin (Gabapentin 300 Mg Capsule) 300 mg PO TID [facility] Last Admin: 03/07/21 08:00 Dose: 300 mg Documented by: TERENCE Glucose (Glucose Gel 15 Gm Gel..Gram.) 15 gm PO Q15M PRN; Protocol PRN Reason: per Hypoglycemia Standing Ord. Levofloxacin (Levaquin) 750 mg in 150 mls @ 100 mls/hr IV Q24H [facility] Last Infusion: 03/06/21 18:03 Dose: 0 mls/hr Documented by: TERENCE Insulin Glargine (Insulin Glargine,Hum.Rec.Anlog 100 Unit/Ml 10 Ml Vial) 10 unit SUBCUT BEDTIME [facility] Last Admin: 03/06/21 20:23 Dose: 10 unit Documented by: DIXON Insulin Human Lispro (Insulin Lispro 100 Unit/Ml 3 Ml Vial) 0 unit SUBCUT QIDACHS [facility]; Protocol Last Admin: 03/07/21 08:00 Dose: 2 unit Documented by: TERENCE Metolazone (Metolazone 2.5 Mg Tablet) 2.5 mg PO MoWeFr@0900 PRN PRN Reason: Edema Montelukast Sodium (Montelukast Sodium 10 Mg Tablet) 10 mg PO BEDTIME [facility] Last Admin: 03/06/21 20:23 Dose: 10 mg Documented by: DIXON Omeprazole (Omeprazole 40 Mg Capsule.Dr) 40 mg PO BEDTIME PRN PRN Reason: Acid Reflux Last Admin: 02/28/21 07:28 Dose: 40 mg Documented by: ISAI-ASKEP Ondansetron HCl (Ondansetron Hcl 4 Mg/2 Ml Vial) 4 mg IVPUSH Q8H PRN PRN Reason: Nausea and Vomiting Last Admin: 03/03/21 04:26 Dose: 4 mg Documented by: JAN Oxycodone HCl (Oxycodone Hcl Immed Release 5 Mg Tablet) 5 mg PO Q6H PRN PRN Reason: Breakthrough Pain Last Admin: 03/07/21 06:43 Dose: 5 mg Documented by: DIXON Pharmacy Consult (Consult Rx Perform Med Rec) 1 each MISCELLANE ONCE PRN PRN Reason: Consult order Polyethylene Glycol (Polyethylene Glycol 3350 17 Gm Powd.Pack) 17 gm PO DAILY [facility] Last Admin: 03/07/21 08:00 Dose: 17 gm Documented by: TERENCE Sodium Chloride (0.9 % Sodium Chloride Flush 3 Ml Syringe) 3 ml IVFLUSH QSHIFT [facility] Last Admin: 03/07/21 08:01 Dose: 3 ml Documented by: TERENCE Labs CBC & Chem 7: 03/06/21 07:20 03/07/21 05:33 Labs: Laboratory Results - last 24 hr 03/06/21 03/06/21 03/06/21 10:59 16:19 19:48 Anion Gap Estim Creat Clear Calc Estimated GFR POC Glucose 227 H 187 H 210 H Fasting Glucose Calcium Magnesium 03/07/21 03/07/21 05:33 07:30 Anion Gap 17 Estim Creat Clear Calc 56.1 Estimated GFR 43 POC Glucose 190 H Fasting Glucose 213 H D Calcium 9.2 D Magnesium 2.2 Assessment and Plan (1) Pulmonary embolism: Status: Acute Assessment and Plan: 60-year-old woman admitted with acute on chronic congestive heart failure Acute respiratory failure with hypoxia Multifactorial related to acute on chronic diastolic and right sided CHF, PE, PNA home o2 eval positive, will need chronic o2 supplementation continue lasix po hypokalemia replace and monitor PE subsegmental PE RUL, DVT negative Eliquis 10mg BID x 7 days, followed by 5mg bid starting pm of 03/08/21 PNA No sepsis day #01/08 levaquin JACKSON cpap at night COPD no wheezing, no exacerbation -prn breathing treatments DM On Toujeo, Trulicity at home, NF -continue Lantus, SSI Constipation miralax colace Hyperbilirubinemia chronic, likely fatty liver (see ct from November) Hypokalemia repleted, monitor Full Code DVT pptx - on eliquis dispo: awaiting snf placement Quality Stroke Does the patient have a stroke diagnosis?: No VTE Prior VTE?: No VTE Risk Level:: Medical - moderate - high VTE Device Contraindication: Treatment Not Tolerated VTE Drug Contraindication: N/A - Med Ordered
[2021-03-07 11:05] LABS: Glucose, Whole Blood 194 mg/dL (60-115)
[2021-03-07 12:41] LABS: Anion Gap 16 (12-20); Blood Urea Nitrogen 30 mg/dL (9-16); Carbon Dioxide 33 mmol/L (22-29); Chloride 91 mmol/L (96-108); Creatinine Clr Calc Pharmacy 57.5; Estimated Glomerular Filt Rate 44; Glucose Random 185 mg/dL (60-115); Potassium 3.4 mmol/L (3.3-5.1); Sodium 137 mmol/L (135-145)
[2021-03-07] MEDS: Acetaminophen 325 MG TABLET 650 MG PO (13:47)
--- NOTE | 2021-03-07 15:27 | MHC.CM.PN ---
[facility] [place] has accepted the patient. The facility is going for Authorization.
[2021-03-07 16:15] LABS: Glucose, Whole Blood 191 mg/dL (60-115)
[2021-03-07] MEDS: bisacodyL 10 MG SUPP.RECT PR (17:50)
[2021-03-07 19:32] LABS: Glucose, Whole Blood 159 mg/dL (60-115)
[2021-03-07] MEDS: Atorvastatin Calcium 10 MG TABLET PO (20:51)
[2021-03-07] MEDS: Insulin Glargine,Hum.rec.anlog 100 UNIT/ML 10 ML VIAL 10 UNIT SUBCUT (20:51)
[2021-03-07] MEDS: Montelukast Sodium 10 MG TABLET PO (20:51)
[2021-03-08] VITALS (7 sets, daily range): BP systolic 96–117; BP diastolic 55–72; PULSE 66–89; RESP 18; TEMP 35.7–36.4; O2SAT 90–96; BMI 45.7
[2021-03-08] MEDS: Acetaminophen 325 MG TABLET 650 MG PO (03:32)
[2021-03-08 08:27] LABS: Glucose, Whole Blood 153 mg/dL (60-115)
[2021-03-08] MEDS: Fluticasone/Vilanterol 200/25 BLST.W.DEV 1 PUFF INHALE (08:36)
[2021-03-08 08:54] LABS: Anion Gap 18 (12-20); Blood Urea Nitrogen 35 mg/dL (9-16); Calcium 9.2 mg/dL (8.4-10.2); Carbon Dioxide 32 mmol/L (22-29); Chloride 94 mmol/L (96-108); Creatinine Clr Calc Pharmacy 53.3; Estimated Glomerular Filt Rate 40; Glucose Fasting 168 mg/dL (60-99); Magnesium 2.3 mg/dL (1.6-2.6); Potassium 3.1 mmol/L (3.3-5.1); Sodium 141 mmol/L (135-145)
[2021-03-08] MEDS: Insulin Lispro 100 UNIT/ML 3 ML VIAL SUBCUT ×3 (09:19→20:33)
[2021-03-08] MEDS: Gabapentin 300 MG CAPSULE PO ×3 (09:20→20:33)
[2021-03-08] MEDS: Apixaban 5 MG TABLET 10 MG PO (09:20)
[2021-03-08] MEDS: 0.9 % Sodium Chloride Flush 3 ML SYRINGE IVFLUSH ×2 (09:20→20:36)
[2021-03-08] MEDS: Furosemide 40 MG TABLET 80 MG PO ×2 (09:20→16:38)
--- NOTE | 2021-03-08 12:21 | HO.PM.IMPN ---
Subjective Subjective Date of Service: 03/08/21 Interval History: right foot pain Cardiovascular Cardiovascular: Reports no additional cardiovascular complaints Respiratory Respiratory: Reports no additional respiratory complaints Physical Exam Vital Signs: Vital Signs: Last Vital Signs Temp 97.2 F 03/08/21 12:00 Pulse 72 03/08/21 12:00 Resp 18 03/08/21 12:00 BP 97/69 03/08/21 12:00 Pulse Ox 90 L 03/08/21 12:00 Body Mass Index 45.7 GENERAL APPEARANCE: in no acute distress, pleasant. NECK: no carotid bruit, + jugular venous distention. SKIN: no suspicious lesions, warm and dry. HEART: no murmurs, regular rate and rhythm. LUNGS:? Few crackles at bases. ABDOMEN: soft, nontender. EXTREMITIES:? No significant edema PERIPHERAL PULSES: equal. NEUROLOGIC: No gross deficits, AAO X 3 Objective Data Active Medications Acetaminophen (Acetaminophen 325 Mg Tablet) 650 mg PO Q6H PRN PRN Reason: Pain, Mild (Pain Scale 1-3) Last Admin: 03/08/21 03:32 Dose: 650 mg Documented by: JOSHUA Albuterol Sulfate (Albuterol Sulfate 90 Mcg 8 Gm Inhaler) 2 puff INHALE Q4H PRN PRN Reason: Shortness Of Breath Albuterol/Ipratropium (Albuterol/Iprat 2.5/0.5mg 3 Ml Ampul.Neb) 3 ml INHALE Q6H PRN PRN Reason: Shortness of Breath Apixaban (Apixaban 5 Mg Tablet) 10 mg PO BID [facility] Stop: 03/08/21 20:59 Last Admin: 03/08/21 09:20 Dose: 10 mg Documented by: STEVENSON Apixaban (Apixaban 5 Mg Tablet) 5 mg PO BID [facility] Atorvastatin Calcium (Atorvastatin Calcium 10 Mg Tablet) 10 mg PO BEDTIME [facility] Last Admin: 03/07/21 20:51 Dose: 10 mg Documented by: JOSHUA Dextrose (Dextrose 50 % 25 Gm/50 Ml Vial) 25 gm IVPUSH Q15M PRN; Protocol PRN Reason: per Hypoglycemia Standing Ord. Docusate Sodium (Docusate Sodium 100 Mg Capsule) 100 mg PO BID [facility] Last Admin: 03/08/21 09:20 Dose: Not Given Documented by: STEVENSON Non-Admin Reason: Patient Refused Fluticasone/Vilanterol (Fluticasone/Vilanterol 200/25 Blst.W.Dev) 1 puff INHALE RDAILY [facility] Last Admin: 03/08/21 08:36 Dose: 1 puff Documented by: JESSICA Furosemide (Furosemide 40 Mg Tablet) 80 mg PO BID@0900,1800 [facility]; Protocol Last Admin: 03/08/21 09:20 Dose: 80 mg Documented by: STEVENSON Gabapentin (Gabapentin 300 Mg Capsule) 300 mg PO TID [facility] Last Admin: 03/08/21 09:20 Dose: 300 mg Documented by: STEVENSON Glucose (Glucose Gel 15 Gm Gel..Gram.) 15 gm PO Q15M PRN; Protocol PRN Reason: per Hypoglycemia Standing Ord. Insulin Glargine (Insulin Glargine,Hum.Rec.Anlog 100 Unit/Ml 10 Ml Vial) 10 unit SUBCUT BEDTIME [facility] Last Admin: 03/07/21 20:51 Dose: 10 unit Documented by: JOSHUA Insulin Human Lispro (Insulin Lispro 100 Unit/Ml 3 Ml Vial) 0 unit SUBCUT QIDACHS [facility]; Protocol Last Admin: 03/08/21 09:19 Dose: 2 unit Documented by: STEVENSON Metolazone (Metolazone 2.5 Mg Tablet) 2.5 mg PO MoWeFr@0900 PRN PRN Reason: Edema Montelukast Sodium (Montelukast Sodium 10 Mg Tablet) 10 mg PO BEDTIME [facility] Last Admin: 03/07/21 20:51 Dose: 10 mg Documented by: JOSHUA Omeprazole (Omeprazole 40 Mg Capsule.Dr) 40 mg PO BEDTIME PRN PRN Reason: Acid Reflux Last Admin: 02/28/21 07:28 Dose: 40 mg Documented by: STEVENSON Ondansetron HCl (Ondansetron Hcl 4 Mg/2 Ml Vial) 4 mg IVPUSH Q8H PRN PRN Reason: Nausea and Vomiting Last Admin: 03/03/21 04:26 Dose: 4 mg Documented by: JAN Oxycodone HCl (Oxycodone Hcl Immed Release 5 Mg Tablet) 5 mg PO Q6H PRN PRN Reason: Breakthrough Pain Last Admin: 03/07/21 20:58 Dose: 5 mg Documented by: JOSHUA Pharmacy Consult (Consult Rx Perform Med Rec) 1 each MISCELLANE ONCE PRN PRN Reason: Consult order Polyethylene Glycol (Polyethylene Glycol 3350 17 Gm Powd.Pack) 17 gm PO DAILY [facility] Last Admin: 03/08/21 09:20 Dose: Not Given Documented by: STEVENSON Non-Admin Reason: Patient Refused Sodium Chloride (0.9 % Sodium Chloride Flush 3 Ml Syringe) 3 ml IVFLUSH QSHIFT [facility] Last Admin: 03/08/21 09:20 Dose: 3 ml Documented by: STEVENSON Labs CBC & Chem 7: 03/06/21 07:20 03/08/21 08:06 Labs: Laboratory Results - last 24 hr 03/07/21 03/07/21 03/07/21 12:12 16:12 19:26 Anion Gap 16 Estim Creat Clear Calc 57.5 Estimated GFR 44 POC Glucose 191 H 159 H Random Glucose 185 H D Fasting Glucose Calcium 9.0 Magnesium 03/08/21 03/08/21 07:59 08:06 Anion Gap 18 Estim Creat Clear Calc 53.3 Estimated GFR 40 POC Glucose 153 H Random Glucose Fasting Glucose 168 H Calcium 9.2 Magnesium 2.3 Microbiology Microbiology Results: Microbiology 03/02/21 13:33 Blood Culture - Final Blood - Venous No growth after 5 days. 03/02/21 13:33 Blood Culture - Final Blood - Venous No growth after 5 days. Assessment and Plan (1) Pulmonary embolism: Status: Acute Assessment and Plan: 60-year-old woman admitted with acute on chronic congestive heart failure Acute respiratory failure with hypoxia Multifactorial related to acute on chronic diastolic and right sided CHF, PE, PNA home o2 eval positive, will need chronic o2 supplementation continue lasix po hypokalemia replaced foot pain follow up right foot xray PE subsegmental PE RUL, DVT negative s/p Eliquis 10mg BID x 7 days 5mg bid starting pm of 03/08/21 PNA No sepsis completed 7 days levaquin JACKSON cpap at night COPD no wheezing, no exacerbation -prn breathing treatments DM On Toujeo, Trulicity at home, NF -continue Lantus, SSI Constipation miralax colace Hyperbilirubinemia chronic, likely fatty liver (see ct from November) Hypokalemia repleted, monitor Full Code DVT pptx - on eliquis dispo: awaiting snf placement Quality Stroke Does the patient have a stroke diagnosis?: No VTE Prior VTE?: No VTE Risk Level:: Medical - moderate - high VTE Device Contraindication: Treatment Not Tolerated VTE Drug Contraindication: N/A - Med Ordered
[2021-03-08 12:38] LABS: Glucose, Whole Blood 151 mg/dL (60-115)
[2021-03-08] MEDS: oxyCODONE HCl Immed Release 5 MG TABLET PO ×2 (12:44→20:33)
[2021-03-08 16:04] LABS: Glucose, Whole Blood 131 mg/dL (60-115)
[2021-03-08] MEDS: Docusate Sodium 100 MG CAPSULE PO (20:32)
[2021-03-08] MEDS: Montelukast Sodium 10 MG TABLET PO (20:33)
[2021-03-08] MEDS: Atorvastatin Calcium 10 MG TABLET PO (20:33)
[2021-03-08] MEDS: Apixaban 5 MG TABLET PO (20:33)
[2021-03-08] MEDS: Insulin Glargine,Hum.rec.anlog 100 UNIT/ML 10 ML VIAL 10 UNIT SUBCUT (20:33)
[2021-03-08 20:36] LABS: Glucose, Whole Blood 242 mg/dL (60-115)
[2021-03-09] VITALS (8 sets, daily range): BP systolic 97–131; BP diastolic 61–83; PULSE 70–85; RESP 18–20; TEMP 36.1–37; O2SAT 90–97
[2021-03-09 07:17] LABS: Glucose, Whole Blood 152 mg/dL (60-115)
[2021-03-09] MEDS: Insulin Lispro 100 UNIT/ML 3 ML VIAL SUBCUT ×3 (07:55→20:56)
[2021-03-09] MEDS: 0.9 % Sodium Chloride Flush 3 ML SYRINGE IVFLUSH ×3 (07:56→20:57)
[2021-03-09] MEDS: Docusate Sodium 100 MG CAPSULE PO ×2 (07:56→20:55)
[2021-03-09] MEDS: Apixaban 5 MG TABLET PO ×2 (07:56→20:56)
[2021-03-09] MEDS: Furosemide 40 MG TABLET 80 MG PO ×2 (07:56→17:00)
[2021-03-09] MEDS: Gabapentin 300 MG CAPSULE PO ×3 (07:56→20:55)
[2021-03-09] MEDS: oxyCODONE HCl Immed Release 5 MG TABLET PO ×2 (07:59→20:54)
[2021-03-09] MEDS: Fluticasone/Vilanterol 200/25 BLST.W.DEV 1 PUFF INHALE (08:14)
[2021-03-09] MEDS: Potassium Chloride ER 20 MEQ TAB.ER.PRT PO ×2 (08:30→20:55)
--- NOTE | 2021-03-09 12:04 | P.PNIM_ITS ---
Subjective Subjective Date of Service: 03/09/21 Interval History: feeling well today Cardiovascular Cardiovascular: Reports no additional cardiovascular complaints Respiratory Respiratory: Reports no additional respiratory complaints Physical Exam Vital Signs: Vital Signs: Last Vital Signs Temp 97.5 F 03/09/21 11:16 Pulse 72 03/09/21 11:16 Resp 18 03/09/21 11:16 BP 101/61 03/09/21 11:16 Pulse Ox 90 L 03/09/21 11:16 Body Mass Index 45.7 General: AO X 3, no acute distress Resp: CTA bilateral CVS: S1,S2,RRR GI: soft, non tender, non distended Neuro: motor grossly intact Psych: appropriate affect Objective Data Active Medications Acetaminophen (Acetaminophen 325 Mg Tablet) 650 mg PO Q6H PRN PRN Reason: Pain, Mild (Pain Scale 1-3) Last Admin: 03/08/21 03:32 Dose: 650 mg Documented by: JOSHUA Albuterol Sulfate (Albuterol Sulfate 90 Mcg 8 Gm Inhaler) 2 puff INHALE Q4H PRN PRN Reason: Shortness Of Breath Albuterol/Ipratropium (Albuterol/Iprat 2.5/0.5mg 3 Ml Ampul.Neb) 3 ml INHALE Q6H PRN PRN Reason: Shortness of Breath Apixaban (Apixaban 5 Mg Tablet) 5 mg PO BID [facility] Last Admin: 03/09/21 07:56 Dose: 5 mg Documented by: YONIS Atorvastatin Calcium (Atorvastatin Calcium 10 Mg Tablet) 10 mg PO BEDTIME [facility] Last Admin: 03/08/21 20:33 Dose: 10 mg Documented by: JOSHUA Dextrose (Dextrose 50 % 25 Gm/50 Ml Vial) 25 gm IVPUSH Q15M PRN; Protocol PRN Reason: per Hypoglycemia Standing Ord. Docusate Sodium (Docusate Sodium 100 Mg Capsule) 100 mg PO BID [facility] Last Admin: 03/09/21 07:56 Dose: 100 mg Documented by: YONIS Fluticasone/Vilanterol (Fluticasone/Vilanterol 200/25 Blst.W.Dev) 1 puff INHALE RDAILY [facility] Last Admin: 03/09/21 08:14 Dose: 1 puff Documented by: JESSICA Furosemide (Furosemide 40 Mg Tablet) 80 mg PO BID@0900,1800 [facility]; Protocol Last Admin: 03/09/21 07:56 Dose: 80 mg Documented by: YONIS Gabapentin (Gabapentin 300 Mg Capsule) 300 mg PO TID [facility] Last Admin: 03/09/21 07:56 Dose: 300 mg Documented by: YONIS Glucose (Glucose Gel 15 Gm Gel..Gram.) 15 gm PO Q15M PRN; Protocol PRN Reason: per Hypoglycemia Standing Ord. Insulin Glargine (Insulin Glargine,Hum.Rec.Anlog 100 Unit/Ml 10 Ml Vial) 10 unit SUBCUT BEDTIME [facility] Last Admin: 03/08/21 20:33 Dose: 10 unit Documented by: JOSHUA Insulin Human Lispro (Insulin Lispro 100 Unit/Ml 3 Ml Vial) 0 unit SUBCUT QIDACHS [facility]; Protocol Last Admin: 03/09/21 07:55 Dose: 2 unit Documented by: YONIS Metolazone (Metolazone 2.5 Mg Tablet) 2.5 mg PO MoWeFr@0900 PRN PRN Reason: Edema Montelukast Sodium (Montelukast Sodium 10 Mg Tablet) 10 mg PO BEDTIME [facility] Last Admin: 03/08/21 20:33 Dose: 10 mg Documented by: JOSHUA Omeprazole (Omeprazole 40 Mg Capsule.Dr) 40 mg PO BEDTIME PRN PRN Reason: Acid Reflux Last Admin: 02/28/21 07:28 Dose: 40 mg Documented by: STEVENSON Ondansetron HCl (Ondansetron Hcl 4 Mg/2 Ml Vial) 4 mg IVPUSH Q8H PRN PRN Reason: Nausea and Vomiting Last Admin: 03/03/21 04:26 Dose: 4 mg Documented by: JAN Oxycodone HCl (Oxycodone Hcl Immed Release 5 Mg Tablet) 5 mg PO Q6H PRN PRN Reason: Breakthrough Pain Last Admin: 03/09/21 07:59 Dose: 5 mg Documented by: YONIS Pharmacy Consult (Consult Rx Perform Med Rec) 1 each MISCELLANE ONCE PRN PRN Reason: Consult order Polyethylene Glycol (Polyethylene Glycol 3350 17 Gm Powd.Pack) 17 gm PO DAILY [facility] Last Admin: 03/09/21 07:56 Dose: Not Given Documented by: YONIS Non-Admin Reason: Patient Refused Potassium Chloride (Potassium Chloride Er 20 Meq Tab.Er.Prt) 20 meq PO BID [facility] Last Admin: 03/09/21 08:30 Dose: 20 meq Documented by: YONIS Sodium Chloride (0.9 % Sodium Chloride Flush 3 Ml Syringe) 3 ml IVFLUSH QSHIFT [facility] Last Admin: 03/09/21 07:56 Dose: 3 ml Documented by: YONIS Labs CBC & Chem 7: 03/06/21 07:20 03/08/21 08:06 Labs: Laboratory Results - last 24 hr 03/08/21 03/08/21 03/08/21 12:11 16:01 20:24 POC Glucose 151 H 131 H 242 H 03/09/21 07:10 POC Glucose 152 H Assessment and Plan (1) Pulmonary embolism: Status: Acute Assessment and Plan: 60-year-old woman admitted with acute on chronic congestive heart failure Acute respiratory failure with hypoxia Multifactorial related to acute on chronic diastolic and right sided CHF, PE, PNA home o2 eval positive, will need chronic o2 supplementation continue lasix po hypokalemia replaced, monitor foot pain xray with bone spurs, symptomatic management for now PE subsegmental PE RUL, DVT negative s/p Eliquis 10mg BID x 7 days 5mg bid starting pm of 03/08/21 PNA No sepsis completed 7 days levaquin JACKSON cpap at night COPD no wheezing, no exacerbation -prn breathing treatments DM On Toujeo, Trulicity at home, NF -continue Lantus, SSI Constipation miralax colace Hyperbilirubinemia chronic, likely fatty liver (see ct from November) Hypokalemia repleted, monitor Full Code DVT pptx - on eliquis dispo: awaiting snf placement Quality Stroke Does the patient have a stroke diagnosis?: No VTE Prior VTE?: No VTE Risk Level:: Medical - moderate - high VTE Device Contraindication: Treatment Not Tolerated VTE Drug Contraindication: N/A - Med Ordered
[2021-03-09 12:05] LABS: Glucose, Whole Blood 195 mg/dL (60-115)
--- NOTE | 2021-03-09 12:17 | MHC.CM.PN ---
CM MET WITH PT TO DISCUSS DC PLANS. [facility]ERING A BED. PT MADE AWARE HER INSURANCE COMPANY IS NOT OPEN TO PROVIDE AUTH FOR STR SO SHE WILL REMAIN HER UNTIL WEDNESDAY. PT REPORTS SHE IS HOPING A DIFFERENT SNF WILL BE ABLE TO OFFER A BED AT THAT TIME HOWEVER SHE IS AWARE THIS MAY REMAIN THE ONLY OPTION. CURRENT DC PLAN IS DC WEDNESDAY TO PENDING BED AVAILABILITY/OFFERS AND AUTH
[2021-03-09] MEDS: Acetaminophen 325 MG TABLET 650 MG PO (15:02)
[2021-03-09 16:48] LABS: Glucose, Whole Blood 149 mg/dL (60-115)
[2021-03-09 20:15] LABS: Glucose, Whole Blood 218 mg/dL (60-115)
[2021-03-09] MEDS: Atorvastatin Calcium 10 MG TABLET PO (20:54)
[2021-03-09] MEDS: Insulin Glargine,Hum.rec.anlog 100 UNIT/ML 10 ML VIAL 10 UNIT SUBCUT (20:56)
[2021-03-09] MEDS: Montelukast Sodium 10 MG TABLET PO ×2 (20:56→20:57)
[2021-03-10] VITALS (7 sets, daily range): BP systolic 95–146; BP diastolic 54–76; PULSE 66–86; RESP 18–20; TEMP 36–37; O2SAT 91–96; BMI 45.7
[2021-03-10] MEDS: hydrOXYzine HCL 25 MG TABLET PO (03:44)
[2021-03-10 05:21] LABS: Hematocrit 44.6 % (37-47); Mean Corpuscular HGB Conc 31.4 g/dl (31.0-35.0); Mean Corpuscular Hemoglobin 28.2 pg (27.0-33.0); Mean Corpuscular Volume 89.7 fL (80-98); Mean Platelet Volume 9.9 fL (9.4-12.3); Platelet Count 311 X10*3/uL (160-400); Red Blood Count 4.97 X10*6/uL (4.20-5.50); Red Cell Distribution Width 16.3 % (11.0-16.0)
[2021-03-10 05:37] LABS: Anion Gap 18 (12-20); Blood Urea Nitrogen 30 mg/dL (9-16); Carbon Dioxide 31 mmol/L (22-29); Chloride 93 mmol/L (96-108); Estimated Glomerular Filt Rate 43; Glucose Fasting 120 mg/dL (60-99); Magnesium 2.1 mg/dL (1.6-2.6); Potassium 3.4 mmol/L (3.3-5.1); Sodium 139 mmol/L (135-145)
[2021-03-10 07:22] LABS: Glucose, Whole Blood 137 mg/dL (60-115)
[2021-03-10] MEDS: Furosemide 40 MG TABLET 80 MG PO ×2 (08:19→17:07)
[2021-03-10] MEDS: Apixaban 5 MG TABLET PO ×2 (08:19→20:57)
[2021-03-10] MEDS: Docusate Sodium 100 MG CAPSULE PO ×2 (08:19→20:57)
[2021-03-10] MEDS: Gabapentin 300 MG CAPSULE PO ×2 (08:19→20:57)
[2021-03-10] MEDS: Potassium Chloride ER 20 MEQ TAB.ER.PRT PO ×2 (08:19→20:57)
[2021-03-10] MEDS: 0.9 % Sodium Chloride Flush 3 ML SYRINGE IVFLUSH ×2 (08:20→17:08)
[2021-03-10] MEDS: Fluticasone/Vilanterol 200/25 BLST.W.DEV 1 PUFF INHALE (08:21)
[2021-03-10 11:22] LABS: Glucose, Whole Blood 168 mg/dL (60-115)
[2021-03-10] MEDS: Insulin Lispro 100 UNIT/ML 3 ML VIAL SUBCUT ×3 (12:16→20:56)
--- NOTE | 2021-03-10 12:50 | P.PNIM_ITS ---
Subjective Subjective Date of Service: 03/10/21 Interval History: no copmlaints Cardiovascular Cardiovascular: Reports no additional cardiovascular complaints Respiratory Respiratory: Reports no additional respiratory complaints Physical Exam Vital Signs: Vital Signs: Last Vital Signs Temp 96.8 F 03/10/21 11:17 Pulse 81 03/10/21 11:17 Resp 20 03/10/21 11:17 BP 104/65 03/10/21 11:17 Pulse Ox 91 L 03/10/21 11:17 Body Mass Index 45.7 General: AO X 3, no acute distress Resp:? CTA bilateral CVS: S1,S2,RRR GI: soft, non tender, non distended Neuro:? motor grossly intact Psych: appropriate affect Objective Data Active Medications Acetaminophen (Acetaminophen 325 Mg Tablet) 650 mg PO Q6H PRN PRN Reason: Pain, Mild (Pain Scale 1-3) Last Admin: 03/09/21 15:02 Dose: 650 mg Documented by: YONIS Albuterol Sulfate (Albuterol Sulfate 90 Mcg 8 Gm Inhaler) 2 puff INHALE Q4H PRN PRN Reason: Shortness Of Breath Apixaban (Apixaban 5 Mg Tablet) 5 mg PO BID [facility] Last Admin: 03/10/21 08:19 Dose: 5 mg Documented by: NOÉ Atorvastatin Calcium (Atorvastatin Calcium 10 Mg Tablet) 10 mg PO BEDTIME [facility] Last Admin: 03/09/21 20:54 Dose: 10 mg Documented by: ALTA Dextrose (Dextrose 50 % 25 Gm/50 Ml Vial) 25 gm IVPUSH Q15M PRN; Protocol PRN Reason: per Hypoglycemia Standing Ord. Docusate Sodium (Docusate Sodium 100 Mg Capsule) 100 mg PO BID [facility] Last Admin: 03/10/21 08:19 Dose: 100 mg Documented by: NOÉ Fluticasone/Vilanterol (Fluticasone/Vilanterol 200/25 Blst.W.Dev) 1 puff INHALE RDAILY [facility] Last Admin: 03/10/21 08:21 Dose: 1 puff Documented by: AGNIESZKA Furosemide (Furosemide 40 Mg Tablet) 80 mg PO BID@0900,1800 [facility]; Protocol Last Admin: 03/10/21 08:19 Dose: 80 mg Documented by: NOÉ Gabapentin (Gabapentin 300 Mg Capsule) 300 mg PO TID [facility] Last Admin: 03/10/21 08:19 Dose: 300 mg Documented by: NOÉ Glucose (Glucose Gel 15 Gm Gel..Gram.) 15 gm PO Q15M PRN; Protocol PRN Reason: per Hypoglycemia Standing Ord. Insulin Glargine (Insulin Glargine,Hum.Rec.Anlog 100 Unit/Ml 10 Ml Vial) 10 unit SUBCUT BEDTIME [facility] Last Admin: 03/09/21 20:56 Dose: 10 unit Documented by: ALTA Insulin Human Lispro (Insulin Lispro 100 Unit/Ml 3 Ml Vial) 0 unit SUBCUT QIDACHS [facility]; Protocol Last Admin: 03/10/21 12:16 Dose: 2 unit Documented by: NOÉ Metolazone (Metolazone 2.5 Mg Tablet) 2.5 mg PO MoWeFr@0900 PRN PRN Reason: Edema Montelukast Sodium (Montelukast Sodium 10 Mg Tablet) 10 mg PO BEDTIME [facility] Last Admin: 03/09/21 20:57 Dose: 10 mg Documented by: ALTA Omeprazole (Omeprazole 40 Mg Capsule.Dr) 40 mg PO BEDTIME PRN PRN Reason: Acid Reflux Last Admin: 02/28/21 07:28 Dose: 40 mg Documented by: STEVENSON Ondansetron HCl (Ondansetron Hcl 4 Mg/2 Ml Vial) 4 mg IVPUSH Q8H PRN PRN Reason: Nausea and Vomiting Last Admin: 03/03/21 04:26 Dose: 4 mg Documented by: JAN Oxycodone HCl (Oxycodone Hcl Immed Release 5 Mg Tablet) 5 mg PO Q6H PRN PRN Reason: Breakthrough Pain Last Admin: 03/09/21 20:54 Dose: 5 mg Documented by: ALTA Pharmacy Consult (Consult Rx Perform Med Rec) 1 each MISCELLANE ONCE PRN PRN Reason: Consult order Polyethylene Glycol (Polyethylene Glycol 3350 17 Gm Powd.Pack) 17 gm PO DAILY [facility] Last Admin: 03/10/21 08:20 Dose: Not Given Documented by: NOÉ Non-Admin Reason: Patient Refused Potassium Chloride (Potassium Chloride Er 20 Meq Tab.Er.Prt) 20 meq PO BID [facility] Last Admin: 03/10/21 08:19 Dose: 20 meq Documented by: NOÉ Sodium Chloride (0.9 % Sodium Chloride Flush 3 Ml Syringe) 3 ml IVFLUSH QSHIFT [facility] Last Admin: 03/10/21 08:20 Dose: 3 ml Documented by: NOÉ Labs CBC & Chem 7: 03/10/21 04:35 03/10/21 04:35 Labs: Laboratory Results - last 24 hr 03/09/21 03/09/21 03/10/21 16:30 20:10 04:35 MCV 89.7 MCH 28.2 MCHC 31.4 RDW 16.3 H Plt Count 311 MPV 9.9 Absolute Nucleated RBC 0.000 Nucleated RBC % (auto) 0.0 Anion Gap Estim Creat Clear Calc Estimated GFR POC Glucose 149 H 218 H Fasting Glucose Calcium Magnesium 03/10/21 03/10/21 03/10/21 04:35 07:15 11:18 MCV MCH MCHC RDW Plt Count MPV Absolute Nucleated RBC Nucleated RBC % (auto) Anion Gap 18 Estim Creat Clear Calc 57.0 Estimated GFR 43 POC Glucose 137 H 168 H Fasting Glucose 120 H Calcium 9.0 Magnesium 2.1 Assessment and Plan (1) Pulmonary embolism: Status: Acute (2) CHF (congestive heart failure): Status: Acute (3) Hypoxia: Status: Acute (4) Diabetes type 2, uncontrolled: Status: Acute Assessment and Plan: 60-year-old woman admitted with acute on chronic congestive heart failure Acute respiratory failure with hypoxia Multifactorial related to acute on chronic diastolic and right sided CHF, PE, PNA home o2 eval was positive, will likely need chronic o2 supplementation at home though current plan is STR at SNF continue lasix po hypokalemia replaced, monitor, now on daily supplement foot pain xray with bone spurs, symptomatic management for now PE subsegmental PE RUL, DVT negative s/p Eliquis 10mg BID x 7 days 5mg bid started 03/08/21 PNA No sepsis completed 7 days levaquin JACKSON cpap at night COPD no wheezing, no exacerbation -prn breathing treatments DM On Toujeo, Trulicity at home, NF -continue Lantus, SSI Constipation miralax colace Hyperbilirubinemia chronic, likely fatty liver (see ct from November) Full Code DVT pptx - on eliquis dispo: awaiting snf placement Quality Stroke Does the patient have a stroke diagnosis?: No VTE Prior VTE?: No VTE Risk Level:: Medical - moderate - high VTE Device Contraindication: Treatment Not Tolerated VTE Drug Contraindication: N/A - Med Ordered
[2021-03-10 16:24] LABS: Glucose, Whole Blood 182 mg/dL (60-115)
[2021-03-10 20:20] LABS: Glucose, Whole Blood 184 mg/dL (60-115)
[2021-03-10] MEDS: Insulin Glargine,Hum.rec.anlog 100 UNIT/ML 10 ML VIAL 10 UNIT SUBCUT (20:56)
[2021-03-10] MEDS: Atorvastatin Calcium 10 MG TABLET PO (20:57)
[2021-03-10] MEDS: oxyCODONE HCl Immed Release 5 MG TABLET PO (20:57)
[2021-03-11] VITALS (8 sets, daily range): BP systolic 90–140; BP diastolic 56–83; PULSE 64–90; RESP 0–22; TEMP 35.5–36.8; O2SAT 89–95; BMI 46.0
[2021-03-11 07:26] LABS: Glucose, Whole Blood 99 mg/dL (60-115)
[2021-03-11] MEDS: 0.9 % Sodium Chloride Flush 3 ML SYRINGE IVFLUSH ×3 (09:22→23:57)
[2021-03-11] MEDS: Apixaban 5 MG TABLET PO ×2 (09:23→22:03)
[2021-03-11] MEDS: Furosemide 40 MG TABLET 80 MG PO ×2 (09:23→17:36)
[2021-03-11] MEDS: Docusate Sodium 100 MG CAPSULE PO ×2 (09:23→22:03)
[2021-03-11] MEDS: Acetaminophen 325 MG TABLET 650 MG PO (09:24)
[2021-03-11] MEDS: Gabapentin 300 MG CAPSULE PO ×3 (09:24→22:03)
[2021-03-11] MEDS: Potassium Chloride ER 20 MEQ TAB.ER.PRT PO ×2 (09:26→22:02)
[2021-03-11 11:21] LABS: Glucose, Whole Blood 142 mg/dL (60-115)
--- NOTE | 2021-03-11 14:15 | MHC.CM.PN ---
Patient has been accepted by [facility]. We are waiting for Authorization from [facility] [place]. CM will continue to follow.
--- NOTE | 2021-03-11 15:37 | P.PNIM_ITS ---
Subjective Subjective Date of Service: 03/11/21 Interval History: complaining of foot pain, requesting for oxycodone upon discharge, no other acute issues has not required oxygen in last 4 days. Review of Systems General no headache, no dizziness, no fever chills. CVS no chest pain, no palpitation. Respiratory no cough, no sob. Gastrointestinal no nausea, no vomiting, no abdominal pain Physical Exam Vital Signs: Vital Signs: Last Vital Signs Temp 96 F L 03/11/21 11:00 Pulse 79 03/11/21 12:04 Resp 0 L 03/11/21 12:04 BP 103/64 03/11/21 12:04 Pulse Ox 89 L 03/11/21 12:04 Body Mass Index 46.0 General: no acute distress, sitting comfortably Resp:? CTA bilateral, no wheeze, no rhonchi no respiratory distress CVS: S1,S2,RRR GI: soft, non tender, non distended, bowel sounds audible Neuro:? Nonfocal Psych: appropriate affect Skin no rash Objective Data Active Medications Acetaminophen (Acetaminophen 325 Mg Tablet) 650 mg PO Q6H PRN PRN Reason: Pain, Mild (Pain Scale 1-3) Last Admin: 03/11/21 09:24 Dose: 650 mg Documented by: IMTIAZ Albuterol Sulfate (Albuterol Sulfate 90 Mcg 8 Gm Inhaler) 2 puff INHALE Q4H PRN PRN Reason: Shortness Of Breath Apixaban (Apixaban 5 Mg Tablet) 5 mg PO BID [facility] Last Admin: 03/11/21 09:23 Dose: 5 mg Documented by: IMTIAZ Atorvastatin Calcium (Atorvastatin Calcium 10 Mg Tablet) 10 mg PO BEDTIME [facility] Last Admin: 03/10/21 20:57 Dose: 10 mg Documented by: JOSE M Dextrose (Dextrose 50 % 25 Gm/50 Ml Vial) 25 gm IVPUSH Q15M PRN; Protocol PRN Reason: per Hypoglycemia Standing Ord. Docusate Sodium (Docusate Sodium 100 Mg Capsule) 100 mg PO BID [facility] Last Admin: 03/11/21 09:23 Dose: 100 mg Documented by: IMTIAZ Fluticasone/Vilanterol (Fluticasone/Vilanterol 200/25 Blst.W.Dev) 1 puff INHALE RDAILY [facility] Last Admin: 03/11/21 07:48 Dose: Not Given Documented by: REGULO Non-Admin Reason: Med Not Available Furosemide (Furosemide 40 Mg Tablet) 80 mg PO BID@0900,1800 [facility]; Protocol Last Admin: 03/11/21 09:23 Dose: 80 mg Documented by: IMTIAZ Gabapentin (Gabapentin 300 Mg Capsule) 300 mg PO TID [facility] Last Admin: 03/11/21 09:24 Dose: 300 mg Documented by: IMTIAZ Glucose (Glucose Gel 15 Gm Gel..Gram.) 15 gm PO Q15M PRN; Protocol PRN Reason: per Hypoglycemia Standing Ord. Insulin Glargine (Insulin Glargine,Hum.Rec.Anlog 100 Unit/Ml 10 Ml Vial) 10 unit SUBCUT BEDTIME [facility] Last Admin: 03/10/21 20:56 Dose: 10 unit Documented by: JOSE M Insulin Human Lispro (Insulin Lispro 100 Unit/Ml 3 Ml Vial) 0 unit SUBCUT QIDACHS [facility]; Protocol Last Admin: 03/11/21 13:17 Dose: Not Given Documented by: IMTIAZ Non-Admin Reason: No Insulin Coverage Metolazone (Metolazone 2.5 Mg Tablet) 2.5 mg PO MoWeFr@0900 PRN PRN Reason: Edema Montelukast Sodium (Montelukast Sodium 10 Mg Tablet) 10 mg PO BEDTIME [facility] Last Admin: 03/09/21 20:57 Dose: 10 mg Documented by: ALTA Omeprazole (Omeprazole 40 Mg Capsule.Dr) 40 mg PO BEDTIME PRN PRN Reason: Acid Reflux Last Admin: 02/28/21 07:28 Dose: 40 mg Documented by: ISAI-ASKEP Ondansetron HCl (Ondansetron Hcl 4 Mg/2 Ml Vial) 4 mg IVPUSH Q8H PRN PRN Reason: Nausea and Vomiting Last Admin: 03/03/21 04:26 Dose: 4 mg Documented by: JAN Oxycodone HCl (Oxycodone Hcl Immed Release 5 Mg Tablet) 5 mg PO Q6H PRN PRN Reason: Breakthrough Pain Last Admin: 03/10/21 20:57 Dose: 5 mg Documented by: JOSE M Pharmacy Consult (Consult Rx Perform Med Rec) 1 each MISCELLANE ONCE PRN PRN Reason: Consult order Polyethylene Glycol (Polyethylene Glycol 3350 17 Gm Powd.Pack) 17 gm PO DAILY [facility] Last Admin: 03/11/21 09:26 Dose: Not Given Documented by: IMTIAZ Non-Admin Reason: Patient Refused Potassium Chloride (Potassium Chloride Er 20 Meq Tab.Er.Prt) 20 meq PO BID [facility] Last Admin: 03/11/21 09:26 Dose: 20 meq Documented by: IMTIAZ Sodium Chloride (0.9 % Sodium Chloride Flush 3 Ml Syringe) 3 ml IVFLUSH QSHIFT [facility] Last Admin: 03/11/21 09:22 Dose: 3 ml Documented by: IMTIAZ Labs CBC & Chem 7: 03/10/21 04:35 03/10/21 04:35 Labs: Laboratory Results - last 24 hr 03/10/21 03/10/21 03/11/21 16:16 20:07 07:10 POC Glucose 182 H 184 H 99 03/11/21 11:02 POC Glucose 142 H Assessment and Plan (1) Pulmonary embolism: Status: Acute (2) CHF (congestive heart failure): Status: Acute (3) Hypoxia: Status: Acute (4) Diabetes type 2, uncontrolled: Status: Acute (5) Obstructive sleep apnea: Status: Acute (6) COPD (chronic obstructive pulmonary disease): Status: Acute (7) Hypertension: Status: Acute (8) Morbid obesity: Status: Acute Assessment and Plan: 60-year-old woman admitted with acute on chronic congestive heart failure Acute respiratory failure with hypoxia Multifactorial related to acute on chronic diastolic and right sided CHF, PE, PNA home o2 eval was positive, but patient has not required oxygen in last several days continue lasix po hypokalemia replaced, monitor, now on daily supplement foot pain xray with bone spurs, symptomatic management for now, use ice as needed PE subsegmental PE RUL, DVT negative s/p Eliquis 10mg BID x 7 days 5mg bid started 03/08/21 PNA No sepsis completed 7 days levaquin JACKSON cpap at night COPD no wheezing, no exacerbation -prn breathing treatments DM On Toujeo, Trulicity at home, NF -continue Lantus, SSI Constipation miralax colace Hyperbilirubinemia chronic, likely fatty liver (see ct from November) Full Code DVT pptx - on eliquis dispo: awaiting snf placement will check COVID test Quality Stroke Does the patient have a stroke diagnosis?: No VTE Prior VTE?: No VTE Risk Level:: Medical - moderate - high VTE Device Contraindication: Treatment Not Tolerated VTE Drug Contraindication: N/A - Med Ordered
[2021-03-11 16:09] LABS: COVID-19 Test Negative (Negative)
[2021-03-11 16:18] LABS: Glucose, Whole Blood 135 mg/dL (60-115)
[2021-03-11 20:59] LABS: Glucose, Whole Blood 222 mg/dL (60-115)
[2021-03-11] MEDS: Insulin Glargine,Hum.rec.anlog 100 UNIT/ML 10 ML VIAL 10 UNIT SUBCUT (22:02)
[2021-03-11] MEDS: Insulin Lispro 100 UNIT/ML 3 ML VIAL SUBCUT (22:02)
[2021-03-11] MEDS: oxyCODONE HCl Immed Release 5 MG TABLET PO (22:03)
[2021-03-11] MEDS: Atorvastatin Calcium 10 MG TABLET PO (22:03)
[2021-03-11] MEDS: Montelukast Sodium 10 MG TABLET PO (22:03)
[2021-03-12 03:34] VITALS: BP 125/70; PULSE 72; RESP 18; TEMP 36.3; O2SAT 92
[2021-03-12] MEDS: oxyCODONE HCl Immed Release 5 MG TABLET PO ×2 (03:45→10:30)
[2021-03-12 05:34] VITALS: BMI 45.1
[2021-03-12 07:16] VITALS: BP 111/74; PULSE 75; RESP 18; TEMP 36.1; O2SAT 95
[2021-03-12 07:21] LABS: Glucose, Whole Blood 137 mg/dL (60-115)
[2021-03-12 08:45] VITALS: PULSE 87; O2SAT 91
[2021-03-12] MEDS: Fluticasone/Vilanterol 200/25 BLST.W.DEV 1 PUFF INHALE (08:45)
[2021-03-12] MEDS: Docusate Sodium 100 MG CAPSULE PO (10:23)
[2021-03-12] MEDS: Gabapentin 300 MG CAPSULE PO (10:23)
[2021-03-12] MEDS: Furosemide 40 MG TABLET 80 MG PO (10:23)
[2021-03-12] MEDS: Apixaban 5 MG TABLET PO (10:23)
[2021-03-12] MEDS: Potassium Chloride ER 20 MEQ TAB.ER.PRT PO (10:23)
[2021-03-12] MEDS: 0.9 % Sodium Chloride Flush 3 ML SYRINGE IVFLUSH (10:23)
[2021-03-12 11:11] VITALS: BP 101/64; PULSE 85; RESP 20; TEMP 36.7; O2SAT 91
[2021-03-12 11:16] LABS: Glucose, Whole Blood 164 mg/dL (60-115)
--- NOTE | 2021-03-12 11:26 | MHC.CM.PN ---
Female 60 dx hf [facility] requested more information to support STR auth. Respiratory therapy imput pending, RE CPAP and home oxygen. MD spoke with Patient. She is agreeable to go home with services. NA notified of discharge today.
[2021-03-12] MEDS: Insulin Lispro 100 UNIT/ML 3 ML VIAL SUBCUT (12:35)
[2021-03-12 15:21] VITALS: BP 125/73; PULSE 78; RESP 14; TEMP 36.3; O2SAT 91
[2021-03-12 16:23] LABS: Glucose, Whole Blood 137 mg/dL (60-115)
--- NOTE | 2021-03-12 16:25 | PM.DS ---
DS: Providers Provider Date of Service: 03/12/21 Date of admission: 02/24/21 18:22 Primary care physician: Traci Baxter MD Consults: 02/24/21 18:22 Consult to Cardiology Routine Consulting Provider: Go Jain Reason for consultation: chf Has provider been notified: No 03/12/21 13:58 Consult to Pulmonology Routine Consulting Provider: Delgado Crum Reason for consultation: need for cpap and to review overnight sleep study Has provider been notified: No DS: Diagnosis Discharge Diagnosis (1) Pulmonary embolism: Status: Acute (2) CHF (congestive heart failure): Status: Acute (3) Hypoxia: Status: Acute (4) Diabetes type 2, uncontrolled: Status: Acute (5) Obstructive sleep apnea: Status: Acute (6) COPD (chronic obstructive pulmonary disease): Status: Acute (7) Hypertension: Status: Acute (8) Morbid obesity: Status: Acute DS: Summary Hospital Course Hospital Course: History of presenting illness Chief Complaint: SOB 60-year-old woman presented to the ER with complaints of worsening shortness of breath over the last 2 weeks and leg swelling.? She does have a history of heart failure with preserved ejection fraction.? She reports that she noticed a 5 lb weight gain over the last week she increased her Lasix to 80 mg twice daily and she noticed some difference.? Today she had a scheduled echocardiogram and reported that her legs are quite swollen and was told that she should follow-up in the emergency department.? Her BNP was noted to be elevated at 652, bilirubin 1.5, potassium 3.1.? She denied chest pain, nausea, vomiting, diarrhea.? Did report increased shortness of breath especially with exertion but after some rest it does improve.? she received a dose of IV Lasix in the ER.? She will be admitted for further management and treatment of acute on chronic congestive heart failure. hospital course Patient was admitted for acute hypoxic respiratory failure secondary to acute on chronic diastolic CHF with right-sided CHF, acute pulmonary embolism, pneumonia. She was started on Eliquis.continue eliquis 5 mg b.i.d.. For pneumonia she was treated with Levaquin, For her CHF she was diuresed with IV Lasix, this was transitioned to 80 mg p.o. b.i.d. which is increased from her 40 mg p.o. b.i.d. at home. Echo showed normal EF with right-sided heart failure and severe pulmonary hypertension, also showed moderately increased left ventricular wall thickness. prior to dc she had home o2 eval and overnight oxymetry with her cpap, she will require o2 2-3L/min with exertion, continue CPAP at night patient will need outpatient sleep study and a pulmonology follow-up, she continued to complain of right-sided foot pain and difficulty in ambulation therefore in foot x-ray was obtained that showed calcaneal spur she has been recommended to obtain a heel cushion, she has chronic on and off bilateral foot pain and has been treated with high dose of Neurontin in the past that she stopped due to side effects, Her history is not consistent with neuropathic pain, she is being discharged to short-term rehab with difficulty in ambulation mostly related to pain,edema she has been recommended weight loss, low-salt diet, Tylenol, heel cushion , as needed oxycodone and supportive shoes. Overnight sleep study without CPAP showed 277 events of hypoxia. Time Spent with Patient Time attestation: Total time spent providing and/or coordinating discharge services: Discharge coordination time: Greater than 30 minutes Quality: Stroke Does the patient have a stroke diagnosis?: No Physical Exam Vital Signs: Vital Signs: Last Vital Signs Temp 97.3 F 03/12/21 15: Pulse 78 03/12/21 15:21 Resp 14 03/12/21 15:21 BP 125/73 03/12/21 15:21 Pulse Ox 91 L 03/12/21 15:21 Body Mass Index 45.1 General: no acute distress, sitting comfortably Resp:? CTA bilateral, no wheeze, no rhonchi no respiratory distress CVS: S1,S2,RRR GI: soft, non tender, non distended, bowel sounds audible Neuro:? Nonfocal Psych: appropriate affect Extremities mild pitting edema bilaterally Both ankles good range of motion, good range of motion bilateral toes, no redness no warmth noted. Skin no rash DS: Data Data Completed and Pending Completed studies during hospitalization [Text1]: Procedures Resection of Gallbladder, Percutaneous Endoscopic Approach (11/06/20) Labs on day of discharge: Laboratory Results - last 24 hr 03/11/21 03/12/21 03/12/21 20:47 07:16 11:12 POC Glucose 222 H 137 H 164 H 03/12/21 16:16 POC Glucose 137 H Discharge Plan Discharge Patient Disposition: Xfer SNF Discharge Diagnosis: pneumonia, chf, pe Referrals: [facility] [place] [Outside] - 1 Week Traci Baxter MD [Primary Care Provider] - 1 Week (Your doctor's office should be in contact with you to schedule a follow up appointment.) Discharge Medications: New oxycodone 5 mg Tablet 5 mg PO Q8H PRN (Reason: Breakthrough Pain) Qty: 20 RF: 0 potassium chloride [Klor-Con M20] 20 mEq Tablet,Er Particles/Crystals 20 meq PO BID Qty: 60 RF: 0 Eliquis 5 mg Tablet 5 mg PO BID Qty: 60 RF: 0 Continued cholecalciferol (vitamin D3) 125 mcg (5,000 unit) capsule 125 mcg PO DAILY Qty: 90 RF: 3 montelukast 10 mg tablet 10 mg PO BEDTIME Qty: 90 RF: 3 Trulicity 3 mg/0.5 mL pen injector 3 mg subcut QWEEK 30 Days Qty: 2.5 RF: 11 albuterol sulfate [Ventolin HFA] 90 mcg/actuation Hfa Aerosol Inhaler 2 puff INHALATION Q4H PRN (Reason: Shortness Of Breath) RF: 0 budesonide-formoterol [Symbicort] 160-4.5 mcg/actuation Hfa Aerosol Inhaler 2 puff INHALATION BID RF: 0 metolazone 2.5 mg tablet 1 tab PO 3XW PRN (Reason: Edema) RF: 0 atorvastatin 10 mg tablet 10 mg PO BEDTIME RF: 0 gabapentin 100 mg capsule 300 mg PO TID RF: 0 Toujeo SoloStar U-300 Insulin 300 unit/mL (1.5 mL) insulin pen 12 unit subcut BEDTIME RF: 0 omeprazole 40 mg capsule,delayed release(DR/EC) 40 mg PO BEDTIME PRN (Reason: Acid Reflux) RF: 0 Changed furosemide 40 mg tablet 80 mg PO BID@0900,1800 Qty: 180 RF: 5 Discontinued ibuprofen 800 mg tablet 800 mg PO TID PRN (Reason: pain) Qty: 20 RF: 0 Discharge Orders: Discharge Order (Routine); Ordered 03/12/21 Ordered By: Larry Jordan Diet: advance to usual diet Activity on Discharge: As tolerated Stand Alone Forms: Patient Portal Discharge page Care Plan Goals: Right heel pain with difficulty in ambulation, recommend heel cushion, heat, Tylenol and as needed oxycodone Health Concerns: chf, pe, pneumonia Plan of Treatment: eliquis as prescribed, follow up with cardio Assessment: see above
--- NOTE | 2021-03-13 10:13 | MHC.CM.PN ---
A call was received this morning. The Dtr of discharged Pt, Laura Golden, called requesting scripts. The patient discharged for STR to [facility] yesterday. The Pt left [facility] prior to being admitted. A request for scripts to be sent to pharmacy on file was received from pts dtr. MD declined to provide scripts; because the pt discharged to SNF. MD notified of the situation and request for scripts. Message from MD to Patient via T/W she was directed to call PCP. The Pt verbalized understanding of the message to contact her PCP for the prescriptions. CM Carburetor Repairer and Director notified.
== END 2021-03-12 17:41 | disposition skilled nursing facility (03) | DRG 194 ==
LOC: HO.ED 11:38 → HO.EDOVER 18:34 → HO.IMC 02-25 00:53
PROVIDERS: Family Medicine; Internal Medicine; Nurse Practitioner Family; Physician Assistant Medical; Admitting Provider Nurse Practitioner Acute Care; Emergency Provider Emergency Medicine; PCP Internal Medicine; Visit Provider Hospitalist
DX: I11.0 Hypertensive heart disease with heart failure (principal); J96.01 Acute respiratory failure with hypoxia; I26.93 Single subsegmental thrombotic pulmonary embolism without acute cor pulmonale; J18.9 Pneumonia, unspecified organism; E66.01 Morbid (severe) obesity due to excess calories; E11.42 Type 2 diabetes mellitus with diabetic polyneuropathy; I27.29 Other secondary pulmonary hypertension; I50.812 Chronic right heart failure; I50.33 Acute on chronic diastolic (congestive) heart failure; E87.5 Hyperkalemia; G47.33 Obstructive sleep apnea (adult) (pediatric); E87.6 Hypokalemia; Z20.822 Contact with and (suspected) exposure to COVID-19; K59.00 Constipation, unspecified; Z99.89 Dependence on other enabling machines and devices; Z68.42 Body mass index [BMI] 45.0-49.9, adult; Z91.19 Patient's noncompliance with other medical treatment and regimen; Z87.891 Personal history of nicotine dependence; Z79.899 Other long term (current) drug therapy
CPT/HCPCS: 36415; 71045; 71046; 71275; 73620; 80048; 80076; 82947; 83735; 83880; 84484; 85025; 85027; 85610; 87040; 87635; 87640; 87641; 93005; 93970; 96374; 97110; 97116; 97162; 99285; J1650; J1940; J1956; J2405; Q9967

== ENCOUNTER 2021-03-21 14:36 | Outpatient (REF) | payer OTHER, SELFPAY ==
--- NOTE | ~2021-03-21 | XR_ITS ---
EXAMINATION: CHEST AND LEFT HAND. CLINICAL INFORMATION: Pain. COMPARISON: None TECHNIQUE: Chest 2 views. Left hand 3 views. FINDINGS: Chest: There is mild cardiomegaly. Pulmonary vascularity is normal. There is mild atelectatic changes right lung base. Rest of the lungs are clear. No gross bony abnormality seen. While Gerald. No acute process. Left hand: There is no visible acute fracture, dislocation or subluxation seen. There is loss of PIP and DIP and first MCP joint space. No periarticular spurring. No acute fracture or dislocation seen. XR/XR chest 2V IMPRESSION: Unremarkable chest exam. 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 No acute fracture or dislocation left hand.
--- NOTE | ~2021-03-21 | XR_ITS ---
EXAMINATION: CHEST AND LEFT HAND. CLINICAL INFORMATION: Pain. COMPARISON: None TECHNIQUE: Chest 2 views. Left hand 3 views. FINDINGS: Chest: There is mild cardiomegaly. Pulmonary vascularity is normal. There is mild atelectatic changes right lung base. Rest of the lungs are clear. No gross bony abnormality seen. While Gerald. No acute process. Left hand: There is no visible acute fracture, dislocation or subluxation seen. There is loss of PIP and DIP and first MCP joint space. No periarticular spurring. No acute fracture or dislocation seen. XR/XR hand LT min 3V IMPRESSION: Unremarkable chest exam. 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 No acute fracture or dislocation left hand.
[2021-03-21 16:39] LABS: Hematocrit 46.8 % (37-47); Hemoglobin 14.4 g/dl (12.0-16.0); Mean Corpuscular HGB Conc 30.8 g/dl (31.0-35.0); Mean Corpuscular Hemoglobin 28.2 pg (27.0-33.0); Mean Corpuscular Volume 91.8 fL (80-98); Mean Platelet Volume 10.8 fL (9.4-12.3); Platelet Count 331 X10*3/uL (160-400); Red Cell Distribution Width 15.9 % (11.0-16.0); White Blood Count 9.6 X10*3/uL (4.8-10.8)
[2021-03-21 17:01] LABS: Anion Gap 14 (12-20); Blood Urea Nitrogen 19 mg/dL (9-16); Calcium 9.5 mg/dL (8.4-10.2); Carbon Dioxide 29 mmol/L (22-29); Chloride 104 mmol/L (96-108); Estimated Glomerular Filt Rate 53; Glucose Random 100 mg/dL (60-115); Potassium 4.3 mmol/L (3.3-5.1); Sodium 143 mmol/L (135-145)
== END 2021-03-21 14:37 | disposition home or self-care (01) ==
LOC: HO.HMGCX 14:36
PROVIDERS: PCP Internal Medicine; Visit Provider Internal Medicine
DX: I50.9 Heart failure, unspecified (principal); I26.99 Other pulmonary embolism without acute cor pulmonale; R09.02 Hypoxemia; E66.01 Morbid (severe) obesity due to excess calories; I27.20 Pulmonary hypertension, unspecified; R26.89 Other abnormalities of gait and mobility; M79.642 Pain in left hand
CPT/HCPCS: 36415; 71046; 73130; 80048; 83735; 85027

== ENCOUNTER → 2021-03-26 11:16 | Outpatient (BNVA) | payer OTHER, SELFPAY | PROVIDERS: PCP Internal Medicine; Referring Provider Nurse Practitioner Family; Visit Provider Internal Medicine | DX: I50.812 Chronic right heart failure (principal); I27.20 Pulmonary hypertension, unspecified; I27.82 Chronic pulmonary embolism; G47.33 Obstructive sleep apnea (adult) (pediatric); E66.01 Morbid (severe) obesity due to excess calories | CPT/HCPCS: 99212 ==

== ENCOUNTER 2021-04-28 12:03 | Outpatient (REF) | payer OTHER, SELFPAY ==
--- NOTE | ~2021-04-28 | XR_ITS ---
EXAMINATION: XR BILATERAL HANDS CLINICAL INFORMATION: M 79.89-Other specified soft tissue disorders. COMPARISON: Left hand films dated 03/21/2021 TECHNIQUE: 3 views each hand FINDINGS: LEFT HAND: Again seen are some minimal degenerative changes at the DIP and PIP joints. No fractures. No bony destructive lesions. Degenerative changes are also noted at 1st metacarpal carpal joint. RIGHT HAND: Mild degenerative changes are present at the DIP and PIP joints most marked in the 1st and 2nd digits. Some mild degenerative changes also noted at the 1st metacarpal carpal joint. XR/XR hand LT min 3V IMPRESSION: Degenerative changes both hands as described above.
--- NOTE | ~2021-04-28 | XR_ITS ---
EXAMINATION: XR BILATERAL HANDS CLINICAL INFORMATION: M 79.89-Other specified soft tissue disorders. COMPARISON: Left hand films dated 03/21/2021 TECHNIQUE: 3 views each hand FINDINGS: LEFT HAND: Again seen are some minimal degenerative changes at the DIP and PIP joints. No fractures. No bony destructive lesions. Degenerative changes are also noted at 1st metacarpal carpal joint. RIGHT HAND: Mild degenerative changes are present at the DIP and PIP joints most marked in the 1st and 2nd digits. Some mild degenerative changes also noted at the 1st metacarpal carpal joint. XR/XR hand RT min 3V IMPRESSION: Degenerative changes both hands as described above.
== END 2021-04-28 12:04 | disposition home or self-care (01) ==
LOC: HO.HMGCX 12:03
PROVIDERS: PCP Nurse Practitioner Family; Visit Provider Nurse Practitioner Family
DX: M79.89 Other specified soft tissue disorders (principal)
CPT/HCPCS: 73130

== ENCOUNTER 2021-05-17 13:31 | Outpatient (REF) | payer OTHER, SELFPAY ==
--- NOTE | ~2021-05-17 | XR_ITS ---
EXAMINATION: XR KNEE, RIGHT CLINICAL INFORMATION: Right knee pain after twisting injury COMPARISON: None TECHNIQUE: Four views of the right knee. FINDINGS: No fracture or dislocation. No suprapatellar joint effusion. Joint spaces are well-maintained. No significant degenerative changes. No focal soft tissue swelling of the anterior knee. XR/XR knee RT 4V IMPRESSION: Unremarkable radiographs of the right knee.
[2021-05-17 16:01] LABS: Appearance Urine CLOUDY; Color Urine DK YELLOW; Glucose Urine UA NEG (NEG); Hematocrit 46.3 % (37.0-47.0); Hemoglobin 14.8 g/dl (12.0-16.0); Leukocyte Esterase Urine NEG (NEG); Mean Corpuscular Hemoglobin 28.4 pg (27.0-33.0); Mean Corpuscular Volume 88.9 fL (80.0-98.0); Mean Platelet Volume 10.7 fL (9.4-12.3); Nitrite Urine NEG (NEG); PH 5.5 (5.0-8.0); Platelet Count 253 X10*3/uL (160-400); Red Blood Count 5.21 X10*6/uL (4.20-5.50); Red Cell Distribution Width 16.7 % (11.0-16.0); Specific Gravity - Urine >= 1.030 (1.005-1.025); UACC Culture Trigger NO; Urine Blood NEG (NEG); Urine Ketones NEG (NEG); Urine Protein 2+ MG/DL (NEG-TRACE); White Blood Count 7.4 X10*3/uL (4.8-10.8)
[2021-05-17 16:07] LABS: Mucus Urine 2+ /LPF; Squamous Epithelial Cell Urine 3+ /LPF
[2021-05-17 16:08] LABS: Bacteria Urine TRACE /LPF; RBC Urine 0-2 /HPF (0); WBC Urine 0 /HPF (0-4)
[2021-05-17 16:11] LABS: Alanine Aminotransferase 15 U/L (0-31); Albumin Level 3.8 g/dL (3.5-5.0); Alkaline Phosphatase 157 U/L (39-117); Anion Gap 15 (12-20); Aspartate Amino Transferase 17 U/L (5-31); Bilirubin Total 1.3 mg/dL (0.0-1.0); Blood Urea Nitrogen 11 mg/dL (9-16); C Reactive Protein 2.73 mg/dL (< or = 0.50); Carbon Dioxide 28 mmol/L (22-29); Chloride 103 mmol/L (96-108); Cholesterol 117 mg/dL; Estimated Glomerular Filt Rate 57; Glucose Fasting 159 mg/dL (60-99); HDL Cholesterol 33 mg/dL; LDL Cholesterol Calculated 63 mg/dl; Rheumatoid Factor < 15.0 IU/mL (<15.0); Sodium 142 mmol/L (135-145); Total Protein 6.4 g/dL (6.5-8.0); Triglycerides 105 mg/dL
[2021-05-17 16:31] LABS: TSH reflex Free T4 1.47 uIU/mL (0.32-4.0)
[2021-05-17 16:43] LABS: Erythrocyte Sedimentation Rate 17 MM/HR (0-20)
[2021-05-19 12:56] LABS: Cyclic Citrullinated Peptide <16 UNITS
[2021-05-19 13:37] LABS: Lyme Abs Screen <0.90 index
[2021-05-19 19:21] LABS: Anti Nuclear Antibody Screen NEGATIVE (NEGATIVE)
== END 2021-05-17 13:32 | disposition home or self-care (01) ==
LOC: HO.HMGCX 13:31
PROVIDERS: PCP Nurse Practitioner Family; Visit Provider Physician Assistant
DX: M25.561 Pain in right knee (principal); F41.9 Anxiety disorder, unspecified; M79.89 Other specified soft tissue disorders; M79.643 Pain in unspecified hand; I50.9 Heart failure, unspecified
CPT/HCPCS: 36415; 73564; 80053; 80061; 81001; 81003; 84443; 85027; 85652; 86038; 86039; 86140; 86200; 86431; 86617; 86618

== ENCOUNTER 2021-05-27 15:04 | Outpatient (REF) | payer OTHER, SELFPAY ==
[2021-05-27 16:50] LABS: Appearance Urine CLEAR; Color Urine YELLOW; Glucose Urine UA NEG (NEG); Leukocyte Esterase Urine NEG (NEG); Nitrite Urine NEG (NEG); Specific Gravity - Urine 1.015 (1.005-1.025); Urine Blood NEG (NEG); Urine Ketones NEG (NEG); Urine Protein NEG (NEG-TRACE)
[2021-05-27 17:07] LABS: Gamma Glutamyl Transpeptidase 151 U/L (7-33)
== END 2021-05-27 15:05 | disposition home or self-care (01) ==
LOC: HO.HMGCLDS 15:04
PROVIDERS: Visit Provider Nurse Practitioner Family
DX: F41.9 Anxiety disorder, unspecified (principal); R74.8 Abnormal levels of other serum enzymes
CPT/HCPCS: 36415; 81003; 82977

== ENCOUNTER 2021-06-04 11:00 | Outpatient (RCR) | payer OTHER, SELFPAY ==
--- NOTE | 2021-04-07 16:23 | MHC.PT.EP ---
[facility] [place] Office [place] Office [place] Office [address] [phone] F: [phone] F: [phone] F: [phone] F: [phone] Physical Therapy Plan of Care Date of Evaluation: Date of Surgery: Diagnosis: This is a 60 yo female presenting to skilled PT with a script for abnormalities of gait and mobility. Assessment: This is a 60 yo female presenting to skilled PT with a script for abnormalities of gait and mobility. Pt presents s/p recent hospitalization for PE, pneumonia, CHF and pulmonary hypertension. Since leaving the hospital on 03/12 patient complains of general LB weakness, difficulty ambulating and poor balance. After hospitalization patient was DC'd to SNF but did not stay and was referred to outpatient as this would be more beneficial. She reports that she has bone spurs in the R foot. She is walking with a FWW but reports that she uses this on/off moreso when the foot pain is bad. Her pain is located at the arch and great toe. Pain is described as sharp, burning and stabbing. Her pain is also constant. She has not had any recent falls but reports off balance and afraid of falling. Her pain has been ongoing for about a year now. Assessment reveals pain that ranges up to an 8/10 depending on the day. Her daughter is present at [facility] and has explained to the patient her extensive PMHx including CHF, swelling and neuropathy complications adding to foot pain. She demos decreased gross ROM and strength, impaired gait pattern with need for referral to web software engineer, impaired joint mobility at ankle with edema and skin redness (patient reports MD aware) as well as gross functional decline with transfers, walking and balance. She is a falls risk and is very deconditioned. She is a good candidate for skilled PT 2x/wk for 6 wks. I educated her on the need to speak with PCP at her appointment this week in regards to appropriate referrals, skin/swelling management and patient safety. Frequency and Duration: The patient will be seen 2x/wk for 5 wks Short Term Goals: I in HEP Demo proper and safe transfers without PT cuing Make appointment for ankle support and normalize gait pattern Snow Shoveler Goals: Tolerate normal scores on [place] SOPT for balance Improve ankle AROM to WFL Improve hip strength to at least 4+/5 Treatment Plan: Modalities to reduce pain, spasms and effusion. Manual therapy to restore motion and function. Therapeutic exercise to improve strength and flexibility. Neuromuscular re-education for posture and balance. Therapeutic activities to return to functional activities of daily living. Electronically signed by: Basilia Ramachandran PT Please sign and return to therapist. Thank you for your referral.
--- NOTE | 2021-06-09 11:33 | MHC.PT.DC ---
[facility] [place] Office [place] Office [place] Office [address] [phone] F: [phone] F: [phone] F: [phone] F: [phone] Physical Therapy Discharge Report Diagnosis: This is a 60 yo female presenting to skilled PT with a script for abnormalities of gait and mobility. Date of Surgery: Date of Evaluation: 04/07/21 Date of Discharge: Treatments to Date: 11 Cancellations to Date: 2 No Shows to Date: 0 Discharge Status: Achieved Goals Improved Function Independent with HEP Discharge Summary: Patient has progressed from walker to no AD. Pain has improved and she has improved strength and ROM. Educated on foot inserts and the need to continue HEP in order to maintain gains. She has met her goals and is ready for DC. Electronically signed by: Basilia Ramachandran PT Please sign and return to therapist. Thank you for your referral.
== END 2021-06-09 11:33 | disposition home or self-care (01) ==
LOC: HO.PTCHIC 11:00
PROVIDERS: PCP Internal Medicine; Visit Provider Internal Medicine
DX: R26.89 Other abnormalities of gait and mobility (principal)
CPT/HCPCS: 97110; 97112; 97116; 97140; 97163; 97530

== ENCOUNTER → 2021-08-13 13:23 | Outpatient (BNVA) | payer OTHER, SELFPAY | PROVIDERS: PCP Nurse Practitioner Family; Referring Provider Nurse Practitioner Family; Visit Provider Internal Medicine | DX: I50.812 Chronic right heart failure (principal); I27.20 Pulmonary hypertension, unspecified; I27.82 Chronic pulmonary embolism; G47.33 Obstructive sleep apnea (adult) (pediatric); E66.01 Morbid (severe) obesity due to excess calories; Z68.41 Body mass index [BMI] 40.0-44.9, adult | CPT/HCPCS: 99212 ==

== ENCOUNTER 2021-08-18 08:57 | Outpatient (REF) | payer OTHER, SELFPAY ==
--- NOTE | ~2021-08-18 | US_ITS ---
EXAMINATION: US ABDOMEN COMPLETE CLINICAL INFORMATION: Abnormal levels of other serum enzymes. COMPARISON: CT abdomen without and with contrast 11/13/2020. Ultrasound abdomen limited 08/13/2020. Ultrasound abdomen complete 01/08/2020. TECHNIQUE: Real-time imaging of the abdominal viscera. FINDINGS: PANCREAS: Normal. ABDOMINAL AORTA: The proximal, mid, and distal segments are normal in caliber. INFERIOR VENA CAVA: Visualized portions are normal. LIVER: The liver is enlarged. Liver echotexture is increased and heterogeneous. This probably represents fatty infiltration and areas of focal fatty sparing. The liver contour is normal. No focal hepatic lesion. There is no intrahepatic biliary duct dilatation seen. GALLBLADDER: Surgically absent. COMMON BILE DUCT: Normal in caliber measuring 0.5 cm in diameter. RIGHT KIDNEY: Normal. No hydronephrosis. No renal calculi or focal parenchymal lesions. The kidney measures 11.8 cm in maximum dimension. LEFT KIDNEY: There is a 1.4 x 1 x 1.2 cm cyst in the posterior mid pole. No hydronephrosis or renal calculi. The kidney measures 13.0 cm in maximum dimension. SPLEEN: Normal. The spleen measures 11.7 cm in maximum dimension. FREE FLUID: None. US/US abdomen complete IMPRESSION: Enlarged heterogeneous echogenic liver suggestive of fatty infiltration. Small left renal cyst.
== END 2021-08-18 08:58 | disposition home or self-care (01) ==
LOC: HO.HMGCX 08:57
PROVIDERS: PCP Nurse Practitioner Family; Visit Provider Nurse Practitioner Family
DX: R74.8 Abnormal levels of other serum enzymes (principal)
CPT/HCPCS: 76700

== ENCOUNTER 2021-10-28 13:57 | Outpatient (REF) | payer OTHER, SELFPAY ==
--- NOTE | ~2021-10-28 | XR_ITS ---
EXAMINATION: XR CHEST CLINICAL INFORMATION: I50.9 - Heart failure, unspecified COMPARISON: Chest radiographs 03/21/2021, 03/01/2021, CTA chest 03/01/2021. TECHNIQUE: 2 views of the chest were obtained. FINDINGS: There is enlarged cardiopericardial silhouette similar to prior studies. The vascularity is normal. There is fine linear scar right base versus disc atelectasis, similar to prior studies. There is no lobar or segmental airspace consolidation. No effusion. The hilar and mediastinal contours and visualized bony structures are similar to prior exam. XR/XR chest 2V IMPRESSION: 1. Enlarged cardiopericardial silhouette similar to prior studies. 2. No acute intrathoracic disease.
[2021-10-28 16:52] LABS: MANUAL DIFF FLAG NO
[2021-10-28 17:06] LABS: Basophils Absolute Auto 0.1 X10*3/uL (0.0-0.2); Basophils Percent Auto 0.6 % (0-2); Eosinophils Absolute Auto 0.1 X10*3/uL (0.0-0.4); Eosinophils Percent Auto 1.4 % (0-4); Hematocrit 49.4 % (37.0-47.0); Hemoglobin 15.5 g/dl (12.0-16.0); Imm Gran Abs Auto 0.03 X10*3/uL (0.00-0.03); Imm Gran Pct Auto 0.4 % (0.0-0.4); Lymphocytes Absolute Auto 1.8 X10*3/uL (1.2-4.9); Lymphocytes Percent Auto 22.4 % (20-40); Mean Corpuscular HGB Conc 31.4 g/dl (31.0-35.0); Mean Corpuscular Hemoglobin 27.8 pg (27.0-33.0); Mean Corpuscular Volume 88.5 fL (80.0-98.0); Mean Platelet Volume 11.2 fL (9.4-12.3); Monocytes Absolute Auto 0.6 X10*3/uL (0.1-1.2); Monocytes Percent Auto 7.3 % (2-11); Neutrophils Absolute Auto 5.3 x10*3/uL (2.0-8.3); Neutrophils Percent Auto 67.9 % (45-73); Platelet Count 214 X10*3/uL (160-400); Red Blood Count 5.58 X10*6/uL (4.20-5.50); Red Cell Distribution Width 15.1 % (11.0-16.0); White Blood Count 7.9 X10*3/uL (4.8-10.8)
[2021-10-28 17:08] LABS: Alanine Aminotransferase 28 U/L (0-31); Albumin Level 3.8 g/dL (3.5-5.0); Alkaline Phosphatase 213 U/L (39-117); Anion Gap 15 (12-20); Aspartate Amino Transferase 34 U/L (5-31); Bilirubin Total 2.5 mg/dL (0.0-1.0); Blood Urea Nitrogen 20 mg/dL (9-16); Calcium 9.4 mg/dL (8.4-10.2); Carbon Dioxide 31 mmol/L (22-29); Chloride 99 mmol/L (96-108); Cholesterol 132 mg/dL; Estimated Glomerular Filt Rate 47; Glucose Fasting 292 mg/dL (60-99); HDL Cholesterol 34 mg/dL; LDL Cholesterol Calculated 78 mg/dl; Potassium 4.5 mmol/L (3.3-5.1); Sodium 140 mmol/L (135-145); Total Protein 6.8 g/dL (6.5-8.0); Triglycerides 102 mg/dL
[2021-10-28 17:15] LABS: B Type Natriuretic Peptide 1000 pg/mL (<100)
== END 2021-10-28 13:58 | disposition home or self-care (01) ==
LOC: HO.HMGCX 13:57
PROVIDERS: PCP Nurse Practitioner Family; Visit Provider Nurse Practitioner Family
DX: I27.20 Pulmonary hypertension, unspecified (principal); I50.812 Chronic right heart failure; R74.8 Abnormal levels of other serum enzymes; R17 Unspecified jaundice
CPT/HCPCS: 36415; 71046; 80053; 80061; 83880; 85025

== ENCOUNTER 2021-11-27 14:54 | Outpatient (REF) | payer OTHER, SELFPAY ==
[2021-11-27 16:57] LABS: Anion Gap 18 (12-20); Bilirubin Direct 1.3 mg/dL (0.0-0.5); Bilirubin Total 2.1 mg/dL (0.0-1.0); Blood Urea Nitrogen 17 mg/dL (9-16); Calcium 9.3 mg/dL (8.4-10.2); Carbon Dioxide 29 mmol/L (22-29); Chloride 99 mmol/L (96-108); Estimated Glomerular Filt Rate 55; Glucose Random 280 mg/dL (60-115); Potassium 3.7 mmol/L (3.3-5.1); Sodium 142 mmol/L (135-145)
[2021-11-27 17:24] LABS: Gamma Glutamyl Transpeptidase 266 U/L (7-33)
== END 2021-11-27 14:55 | disposition home or self-care (01) ==
LOC: HO.HMGCLDS 14:54
PROVIDERS: Absent Provider Internal Medicine; PCP Nurse Practitioner Family; Visit Provider Nurse Practitioner Family
DX: R17 Unspecified jaundice (principal); R74.8 Abnormal levels of other serum enzymes; I50.812 Chronic right heart failure
CPT/HCPCS: 36415; 80048; 82247; 82248; 82977

== ENCOUNTER 2021-12-02 11:08 | Outpatient (REF) | payer OTHER, SELFPAY ==
--- NOTE | ~2021-12-02 | XR_ITS ---
EXAMINATION: XR CHEST CLINICAL INFORMATION: Heart failure. COMPARISON: 10/28/2021 chest radiographs. TECHNIQUE: 2 views of the chest were obtained. FINDINGS: Minimal bibasilar linear atelectasis/scarring is seen. The upper lung dutta are clear. The heart is mildly enlarged, but stable. The mediastinal structures are unremarkable. XR/XR chest 2V IMPRESSION: Stable chest. No acute cardiopulmonary process.
[2021-12-02 13:50] LABS: Estimated Average Glucose 326 mg/dL
[2021-12-02 14:45] LABS: Creatinine Urine 109.34 mg/dL
[2021-12-02 15:00] LABS: Microalbum/Creatinine Ratio Ur 1159.6 ug/mg cr
== END 2021-12-02 11:09 | disposition home or self-care (01) ==
LOC: HO.HMGCX 11:08
PROVIDERS: PCP Nurse Practitioner Family; Visit Provider Nurse Practitioner Family
DX: I50.9 Heart failure, unspecified (principal); E11.9 Type 2 diabetes mellitus without complications
CPT/HCPCS: 36415; 71046; 82043; 83036

== ENCOUNTER 2021-12-11 09:41 | Outpatient (REF) | payer OTHER, SELFPAY ==
--- NOTE | ~2021-12-11 | MM_ITS ---
EXAMINATION: MM SCREENING DIGITAL BREAST TOMOSYNTHESIS, BILATERAL CLINICAL INFORMATION: Screening. Asymptomatic. The lifetime risk of breast cancer based on the Tyrer-Cuzick Model is 5%. COMPARISON: Mammography: December 29, 2019 and studies dating back to September 02, 2012 TECHNIQUE: Digital breast tomosynthesis is performed in both the craniocaudal and mediolateral oblique views along with computer-aided detection (CAD). Synthesized 2D images are generated from the tomosynthesis. FINDINGS: There are scattered areas of fibroglandular density (ACR BI-RADS breast composition Category b). There are no significant masses, abnormal calcifications, or other abnormalities. There is some stable circumscribed density seen within the left breast. MM/MM tomosynthesis screening BI IMPRESSION: There are no significant changes from prior study. ASSESSMENT: BI-RADS 1: Negative RECOMMENDATION: Routine annual mammography screening. This patient's information was entered into a reminder system with a target due date for their next mammogram.
== END 2021-12-11 09:42 | disposition home or self-care (01) ==
LOC: HO.MAMMO 09:41
PROVIDERS: Visit Provider Nurse Practitioner Family
DX: Z12.31 Encounter for screening mammogram for malignant neoplasm of breast (principal); E11.9 Type 2 diabetes mellitus without complications; R94.7 Abnormal results of other endocrine function studies
CPT/HCPCS: 77063; 77067; 82947; 99212

== ENCOUNTER → 2022-01-16 11:43 | Outpatient (BNVA) | payer OTHER, SELFPAY | PROVIDERS: PCP Nurse Practitioner Family; Visit Provider Dietitian, Registered | DX: E11.9 Type 2 diabetes mellitus without complications (principal) | CPT/HCPCS: 97802 ==

== ENCOUNTER → 2022-01-29 13:22 | Outpatient (BNVA) | payer OTHER, SELFPAY | PROVIDERS: PCP Nurse Practitioner Family; Visit Provider Nurse Practitioner | DX: R17 Unspecified jaundice (principal); R74.8 Abnormal levels of other serum enzymes | CPT/HCPCS: 99202 ==

== ENCOUNTER → 2022-02-12 10:27 | Outpatient (BNVA) | payer OTHER, SELFPAY | PROVIDERS: PCP Nurse Practitioner Family; Visit Provider Internal Medicine Rheumatology | DX: M10.9 Gout, unspecified (principal); M70.21 Olecranon bursitis, right elbow; M79.641 Pain in right hand; M79.642 Pain in left hand; I50.9 Heart failure, unspecified | CPT/HCPCS: 99202 ==

== ENCOUNTER → 2022-02-17 14:07 | Outpatient (BNVA) | payer OTHER, SELFPAY | PROVIDERS: PCP Nurse Practitioner Family; Referring Provider Nurse Practitioner Family; Visit Provider Internal Medicine | DX: I50.812 Chronic right heart failure (principal); I27.20 Pulmonary hypertension, unspecified; I27.82 Chronic pulmonary embolism; G47.33 Obstructive sleep apnea (adult) (pediatric); E66.01 Morbid (severe) obesity due to excess calories; Z68.41 Body mass index [BMI] 40.0-44.9, adult; Z79.899 Other long term (current) drug therapy | CPT/HCPCS: 93005; 99212 ==

== ENCOUNTER → 2022-03-05 11:53 | Outpatient (BNVA) | payer OTHER, SELFPAY | PROVIDERS: PCP Nurse Practitioner Family; Visit Provider Dietitian, Registered | DX: E11.9 Type 2 diabetes mellitus without complications (principal); Z71.3 Dietary counseling and surveillance | CPT/HCPCS: 97803 ==

== ENCOUNTER → 2022-03-11 12:34 | Outpatient (REF) | payer OTHER, SELFPAY ==
--- NOTE | 2022-03-11 12:55 | CA_ITS ---
Transthoracic Echocardiogram Patient (Last, First, Middle): Laura Golden J Gender: Female Date of : 1960 Age: 61 Procedure Date: 03/11/2022 Procedure Type: Transthoracic Echocardiogram Location: OP Height: 157.48 cm Weight: 99.79 kg BSA: 1.99 m2 Heart Rate: bpm BP: 100 / 80 mmHg Dump Motorman: TO Referring MD: Darryl Cruz MD Car Painter: Tom Pedro MD Symptoms: I50.812 - Chronic right heart failure Study Quality: Fair ECG Rhythm: Sinus Conclusions: - 1. Normal LV systolic function with grade 1 diastolic dysfunction 2. Severely dilated right-sided chambers with normal RV systolic function 3. [id number] tricuspid regurgitation 4. Severely elevated right ventricular systolic pressure and mildly elevated right atrial pressures 5. Small pericardial effusion more loculated near the LV Findings Left Ventricle Normal left ventricular size, thickness, and systolic function. The visually estimated ejection fraction is between 65-70%. There is a flattened septum in systole consistent with right ventricular pressure overload. Spectral Doppler is indicative of an impaired relaxation filling pattern. E/E prime ratio is <8, consistent with normal filling pressures. Evidence suggests grade I (mild) diastolic dysfunction. Right Ventricle Severely increased right ventricular cavity size. There is normal right ventricular systolic function. Atria The left atrium is likely dilated. There is an interatrial septal aneurysm seen bowing to the left. There is no evidence of interatrial shunt. The right atrium is severely dilated. Aortic Valve The aortic valve structure and function is likely normal. There is no aortic valve stenosis. There is no aortic valve regurgitation. Mitral Valve Likely normal mitral valve structure and function. There is trace mitral valve regurgitation. There is no mitral valve stenosis. Pulmonic Valve The pulmonic valve is likely normal. There is trace to mild pulmonic valve regurgitation. Tricuspid Valve Likely normal tricuspid valve structure and function. There is mild to moderate tricuspid valve regurgitation. Mildly elevated right atrial pressure. Severe pulmonary hypertension is present. Great Vessels All visible segments of the aorta are normal in size. The pulmonary artery was not well visualized. Venous The inferior vena cava is mildly dilated and collapses greater than 50% with inspiration. Pericardium/Pleural There is a small loculated pericardial effusion overlying the left ventricle. Prior Study Comparison Changes noted compared to prior study dated: 02/24/2021. RV size is increased Measurements 2D Linear Measurements IVSd: 1.40 0.6-0.9/0.6-1.0 cm LVIDd: 3.67 3.9-5.3/4.2-5.9 cm LVIDd Index: 1.84 2.4-3.2/2.2-3.1 cm/m2 LVIDs: 1.97 2.0-3.6 cm LVPWd: 1.14 0.7-1.1 cm LA Diam: 3.50 2.7-3.8/3.0-4.0 cm LAIDs Index: 1.76 1.5-2.3 cm/m2 LV Mass: 197.65 67-162/88-224 g LV Mass Index: 99.32 43-95/49-115 g/m2 LVOT Diam: 2.00 3.0+(-)1.3 cm Mitral Valve MV Pk E: 0.37 MV PK A: 0.90 MV Decel Time: 129.00 E/A: 0.40 E'Lateral: 5.55 E'Medial: 5.55 E/E' Med: 6.70 E/E' Lat: 6.70 PHT: 38.00 MVA PHT: 5.79 Decel [place]: 2.89 Aortic Valve AoV Pk Chau: 1.30 AoV Mn Chau: 0.83 AoV VTI: 0.21 AoV Pk Grad: 7.00 Aov Mn Grad: 3.00 EVANS Cont.VTI: 2.37 LVOT LVOT Pk Chau: 0.93 LVOT Mn Chau: 0.59 LVOT VTI: 0.16 LVOT Pk Grad: 3.00 LVOT Mn Grad: 2.00 LVOT Diam: 2.00 LVOT Area: 3.14 Diastolic Function MV Pk E: 0.37 MV Pk A: 0.90 E/A: 0.40 E'Medial: 5.55 E/E' Med: 6.70 E' Laterial: 5.55 E/E' Lat: 6.70 Right Ventricle TAPSE (mm): 18.90 TVS' Chau: 6.85 Tricuspid Valve TR Pk Chau: 4.25 TR Pk Grad: 72.00 RA Press: 8.00 RVSP: 80.00 Great Vessels Aorta Sinus of Valsalva: 3.12 2.0-3.[address] [place]: 2.67 1.7-3.4 cm Ao Asc: 3.50 2.1-3.4 cm Updated in Other Vendor System with Status of Final Tom Pedro MD electronically signed on 03/11/2022 3:53:39 PM with status of Final
[2022-03-11 13:54] LABS: Uric Acid 11.5 mg/dL (2.4-5.7)
[2022-03-11 13:56] LABS: Alanine Aminotransferase 29 U/L (0-31); Albumin Level 4.5 g/dL (3.5-5.0); Alkaline Phosphatase 219 U/L (39-117); Amylase 39 U/L (28-100); Anion Gap 21 (12-20); Aspartate Amino Transferase 18 U/L (5-31); Bilirubin Total 1.8 mg/dL (0.0-1.0); Blood Urea Nitrogen 26 mg/dL (9-16); C Reactive Protein 0.66 mg/dL (< or = 0.50); Calcium 9.6 mg/dL (8.4-10.2); Carbon Dioxide 26 mmol/L (22-29); Chloride 99 mmol/L (96-108); Estimated Glomerular Filt Rate 44; Glucose Random 186 mg/dL (60-115); Potassium 4.5 mmol/L (3.3-5.1); Sodium 141 mmol/L (135-145); Total Protein 7.7 g/dL (6.5-8.0)
[2022-03-11 14:16] LABS: Ferritin 276 ng/mL (10-250)
[2022-03-12 09:25] LABS: HBS Num1 16.88 mIU/mL (0-7.99); HBc Num1 0.08 S/CO (0.00-0.79); HBsAGNum1 0.19 S/CO (0.00-0.99); HIV AB/AG Nonreactive (Nonreactive); HIV Num 1 0.05 S/CO (0.00-0.99); Hepatitis B Core Antibody Nonreactive (Nonreactive); Hepatitis B Surface Antigen Negative (Negative); ~HepC Num1 0.05 S/CO (0.00-0.79); ~Hepatitis B Surface Antibody REACTIVE (Nonreactive); ~Hepatitis C Antibody Nonreactive (Nonreactive)
[2022-03-13 04:51] LABS: Anti-Centromere B Antibodies <1.0 NEG AI (<1.0 NEG)
[2022-03-13 07:34] LABS: Hepatitis A Antibody IgM 0.16 Index (0-0.79); ~Hepatitis A Antibody IgM Nonreactive (Nonreactive)
[2022-03-13 13:25] LABS: Anti Nuclear Antibody Screen NEGATIVE (NEGATIVE)
[2022-03-13 14:21] LABS: Alpha Fetoprotein 3.9 ng/mL
[2022-03-14 11:42] LABS: Alkaline Phosphatase Bone 30.9 mcg/L (5.6-29.0)
[2022-03-14 23:27] LABS: Smooth Muscle Antibody <20 U (<20)
[2022-03-16 11:17] LABS: Mitochondrial Antibodies NEGATIVE (NEGATIVE)
== END ==
LOC: HO.CARD 12:34
PROVIDERS: Internal Medicine Rheumatology; Absent Provider Internal Medicine Endocrinology, Diabetes & Metabolism; PCP Nurse Practitioner Family; Referring Provider Nurse Practitioner; Visit Provider Internal Medicine
DX: I27.20 Pulmonary hypertension, unspecified (principal); I50.812 Chronic right heart failure; I50.9 Heart failure, unspecified; M25.50 Pain in unspecified joint; M79.643 Pain in unspecified hand; R74.8 Abnormal levels of other serum enzymes; R17 Unspecified jaundice
CPT/HCPCS: 36415; 80053; 82105; 82150; 82728; 84075; 84550; 86015; 86038; 86039; 86140; 86255; 86256; 86704; 86706; 86709; 86803; 87340; 87389; 93306

== ENCOUNTER 2022-03-12 14:31 | Outpatient (REF) | payer OTHER, SELFPAY ==
--- NOTE | ~2022-03-12 | XR_ITS ---
EXAMINATION: XR ELBOW, RIGHT CLINICAL INFORMATION: Olecranon bursitis. COMPARISON: None TECHNIQUE: AP, lateral, and oblique views of the right elbow. FINDINGS: No acute fracture or dislocation. No joint space narrowing or marginal osteophytes. No concerning lytic or blastic osseous lesion. No significant joint effusion. Prominent soft tissue swelling overlying the olecranon measuring up to 4.2 cm in craniocaudal dimension, consistent with olecranon bursitis. XR/XR elbow RT min 3V IMPRESSION: Findings consistent with olecranon bursitis. No acute osseous abnormality.
== END 2022-03-12 14:32 | disposition home or self-care (01) ==
LOC: HO.HMGCX 14:31
PROVIDERS: Absent Provider Internal Medicine Rheumatology; PCP Nurse Practitioner Family; Visit Provider Internal Medicine Endocrinology, Diabetes & Metabolism
DX: M70.20 Olecranon bursitis, unspecified elbow (principal)
CPT/HCPCS: 73080

== ENCOUNTER 2022-05-18 09:07 | Outpatient (REF) | payer OTHER, SELFPAY ==
[2022-05-18 11:58] LABS: Anion Gap 16 (12-20); Blood Urea Nitrogen 24 mg/dL (9-16); Calcium 9.5 mg/dL (8.4-10.2); Carbon Dioxide 31 mmol/L (22-29); Chloride 99 mmol/L (96-108); Estimated Glomerular Filt Rate 46; Glucose Random 141 mg/dL (60-115); Potassium 4.3 mmol/L (3.3-5.1); Sodium 142 mmol/L (135-145)
[2022-05-18 12:43] LABS: Estimated Glomerular Filt Rate 46; Uric Acid 8.5 mg/dL (2.4-5.7)
[2022-05-21 16:32] LABS: NT-proBNP 2260 pg/mL
== END 2022-05-18 09:08 | disposition home or self-care (01) ==
LOC: HO.HMGCLDS 09:07
PROVIDERS: Absent Provider Internal Medicine Rheumatology; PCP Nurse Practitioner Family; Visit Provider Internal Medicine Pulmonary Disease
DX: M10.9 Gout, unspecified (principal); I27.20 Pulmonary hypertension, unspecified
CPT/HCPCS: 36415; 80048; 82565; 83880; 84550

== ENCOUNTER → 2022-05-21 09:30 | Outpatient (BNVA) | payer OTHER, SELFPAY | PROVIDERS: PCP Nurse Practitioner Family; Visit Provider Internal Medicine Rheumatology | DX: M10.9 Gout, unspecified (principal); M19.041 Primary osteoarthritis, right hand | CPT/HCPCS: 99212 ==

== ENCOUNTER → 2022-07-20 10:42 | Outpatient (BNVA) | payer OTHER, SELFPAY | PROVIDERS: PCP Nurse Practitioner Family; Visit Provider Internal Medicine | DX: I50.812 Chronic right heart failure (principal); I27.20 Pulmonary hypertension, unspecified; I27.82 Chronic pulmonary embolism; G47.33 Obstructive sleep apnea (adult) (pediatric); E66.01 Morbid (severe) obesity due to excess calories; Z68.41 Body mass index [BMI] 40.0-44.9, adult | CPT/HCPCS: 99212 ==

== ENCOUNTER → 2022-10-27 14:49 | Outpatient (BNVA) | payer OTHER, SELFPAY | PROVIDERS: PCP Nurse Practitioner Family; Visit Provider Internal Medicine Endocrinology, Diabetes & Metabolism | DX: E11.9 Type 2 diabetes mellitus without complications (principal); R94.7 Abnormal results of other endocrine function studies | CPT/HCPCS: 82947; 83036; 99212 ==

== ENCOUNTER 2022-11-12 11:36 | Outpatient (REF) | payer OTHER, SELFPAY ==
[2022-11-12 14:01] LABS: Basophils Percent Auto 0.5 % (0-2); Eosinophils Absolute Auto 0.1 X10*3/uL (0.0-0.4); Eosinophils Percent Auto 1.6 % (0-4); Hematocrit 51.8 % (37.0-47.0); Hemoglobin 17.3 g/dl (12.0-16.0); Imm Gran Abs Auto 0.05 X10*3/uL (0.00-0.03); Imm Gran Pct Auto 0.7 % (0.0-0.4); Lymphocytes Absolute Auto 2.1 X10*3/uL (1.2-4.9); Lymphocytes Percent Auto 28.5 % (20-40); MANUAL DIFF FLAG SCAN; Mean Corpuscular HGB Conc 33.4 g/dl (31.0-35.0); Mean Corpuscular Hemoglobin 28.7 pg (27.0-33.0); Mean Corpuscular Volume 85.9 fL (80.0-98.0); Monocytes Absolute Auto 0.5 X10*3/uL (0.1-1.2); Monocytes Percent Auto 6.8 % (2-11); Neutrophils Absolute Auto 4.7 x10*3/uL (2.0-8.3); Neutrophils Percent Auto 61.9 % (45-73); PLT CLUMP 1; Red Blood Count 6.03 X10*6/uL (4.20-5.50); Red Cell Distribution Width 14.5 % (11.0-16.0); SCAN SMEAR FLAG 1
[2022-11-12 14:04] LABS: Anion Gap 14 (12-20); Blood Urea Nitrogen 23 mg/dL (9-16); Calcium 9.6 mg/dL (8.4-10.2); Carbon Dioxide 27 mmol/L (22-29); Chloride 107 mmol/L (96-108); Estimated Glomerular Filt Rate > 60; Glucose Random 153 mg/dL (60-115); Sodium 143 mmol/L (135-145)
[2022-11-12 14:14] LABS: Alanine Aminotransferase 51 U/L (0-31); Alkaline Phosphatase 181 U/L (39-117); Anion Gap 13 (12-20); Aspartate Amino Transferase 33 U/L (5-31); Blood Urea Nitrogen 23 mg/dL (9-16); Calcium 9.6 mg/dL (8.4-10.2); Carbon Dioxide 28 mmol/L (22-29); Chloride 107 mmol/L (96-108); Cholesterol 224 mg/dL; Estimated Glomerular Filt Rate > 60; Glucose Fasting 154 mg/dL (60-99); HDL Cholesterol 42 mg/dL; LDL Cholesterol Calculated 156 mg/dl; Sodium 143 mmol/L (135-145); Total Protein 6.4 g/dL (6.5-8.0); Triglycerides 132 mg/dL
[2022-11-12 14:17] LABS: Estimated Average Glucose 197 mg/dL; Hemoglobin A1c % 8.5 %
[2022-11-12 14:32] LABS: TSH reflex Free T4 3.08 uIU/mL (0.32-4.0)
[2022-11-12 14:33] LABS: B Type Natriuretic Peptide 543 pg/mL (<100)
[2022-11-12 14:42] LABS: Platelet Count 147 X10*3/uL (160-400); White Blood Count 7.5 X10*3/uL (4.8-10.8)
[2022-11-12 14:43] LABS: SLIDE REVIEW VERIFIED
== END 2022-11-12 11:37 | disposition home or self-care (01) ==
LOC: HO.HMGCLDS 11:36
PROVIDERS: Absent Provider Internal Medicine Pulmonary Disease; PCP Nurse Practitioner Family; Visit Provider Nurse Practitioner Family
DX: I27.20 Pulmonary hypertension, unspecified (principal); E11.9 Type 2 diabetes mellitus without complications; E78.5 Hyperlipidemia, unspecified
CPT/HCPCS: 36415; 80048; 80053; 80061; 83036; 83880; 84443; 85025

== ENCOUNTER 2022-11-27 08:58 | Outpatient (REF) | payer OTHER, SELFPAY ==
[2022-11-27 11:47] LABS: Anion Gap 16 (12-20); Blood Urea Nitrogen 27 mg/dL (9-16); Calcium 9.3 mg/dL (8.4-10.2); Carbon Dioxide 28 mmol/L (22-29); Chloride 105 mmol/L (96-108); Estimated Glomerular Filt Rate 52; Glucose Random 95 mg/dL (60-115); Potassium 4.1 mmol/L (3.3-5.1); Sodium 145 mmol/L (135-145)
== END 2022-11-27 08:59 | disposition home or self-care (01) ==
LOC: HO.HMGCLDS 08:58
PROVIDERS: Absent Provider Internal Medicine Pulmonary Disease; PCP Nurse Practitioner Family; Visit Provider Nurse Practitioner Family
DX: I27.20 Pulmonary hypertension, unspecified (principal); I50.9 Heart failure, unspecified
CPT/HCPCS: 36415; 80048

== ENCOUNTER 2023-01-12 09:26 | Outpatient (REF) | payer OTHER, SELFPAY ==
[2023-01-12 11:12] LABS: MANUAL DIFF FLAG NO
[2023-01-12 11:37] LABS: Basophils Absolute Auto 0.1 X10*3/uL (0.0-0.2); Basophils Percent Auto 0.6 % (0-2); Eosinophils Absolute Auto 0.1 X10*3/uL (0.0-0.4); Eosinophils Percent Auto 1.2 % (0-4); Hemoglobin 16.5 g/dl (12.0-16.0); Imm Gran Abs Auto 0.03 X10*3/uL (0.00-0.03); Imm Gran Pct Auto 0.4 % (0.0-0.4); Lymphocytes Percent Auto 24.2 % (20-40); Mean Corpuscular Hemoglobin 29.7 pg (27.0-33.0); Mean Corpuscular Volume 89.9 fL (80.0-98.0); Mean Platelet Volume 11.8 fL (9.4-12.3); Monocytes Absolute Auto 0.5 X10*3/uL (0.1-1.2); Monocytes Percent Auto 6.5 % (2-11); Neutrophils Absolute Auto 5.6 x10*3/uL (2.0-8.3); Neutrophils Percent Auto 67.1 % (45-73); Platelet Count 161 X10*3/uL (160-400); Red Blood Count 5.56 X10*6/uL (4.20-5.50); Red Cell Distribution Width 15.5 % (11.0-16.0); White Blood Count 8.4 X10*3/uL (4.8-10.8)
[2023-01-12 12:09] LABS: Uric Acid 7.8 mg/dL (2.4-5.7)
[2023-01-12 12:15] LABS: Cholesterol 214 mg/dL; Estimated Glomerular Filt Rate 53; HDL Cholesterol 45 mg/dL; LDL Cholesterol Calculated 152 mg/dl; Triglycerides 87 mg/dL
[2023-01-14 12:29] LABS: Erythropoietin (EPO) 20.9 mIU/mL (2.6-18.5)
== END 2023-01-12 09:27 | disposition home or self-care (01) ==
LOC: HO.HMGCLDS 09:26
PROVIDERS: PCP Nurse Practitioner Family; Visit Provider Internal Medicine Rheumatology
DX: M10.9 Gout, unspecified (principal); D58.2 Other hemoglobinopathies; E78.5 Hyperlipidemia, unspecified
CPT/HCPCS: 36415; 80061; 81219; 81270; 81279; 81339; 82565; 82668; 84550; 85025

== ENCOUNTER 2023-01-22 13:14 | Outpatient (AMB) | payer OTHER, SELFPAY ==
--- NOTE | 2023-01-22 12:36 | A.OFFVIS_ITS ---
Intake Intake Visit Reasons: LDCT SD Allergies erythromycin base [From E-MYCIN] Allergy (Severe, Verified 11/10/22 11:54) GI PAIN-SEVERE carvedilol Allergy (Mild, Verified 11/10/22 11:54) upset stomach, sweats HPI LDCT SD HPI Details Initial visit for this 62yo former smoker with a 20+PYH. Patient started smoking at age 19 for 40 years at 1/2ppd. She quit in 2019. She has had an occasional cigarette here or there. . Reports marijuana use few times a week. Denies second hand smoke exposure. Denies exposure to chemicals or substances like asbestos. . Denies known family history of lung cancer. Denies personal history of cancers. Denies chest CT in last year. . Denies recent travel outside the [place]. Denies recent respiratory illness or recent hospitalization for respiratory issues. Report testing positive for COVID x 2. Does note breathing changes afterwards. Admits receiving COVID Vaccine. x 2 . History of RUL Pulmonary Embolism - dx 02/2021. Denies fever, chills, new/worsening cough, hemoptysis, hoarseness or dysphagia. Denies significant chest pain, significant dyspnea or unintentional weight loss. Patient Lung Cancer Screening Questionnaire reviewed with patient by provider. . Shared Decision Making Completed. Patient meets criteria. Discussed in detail with patient, the risk vs benefit of LDCT screening. Patient consents to proceed with scan. Discussed smoking cessation. [facility] Medical History (Updated 01/22/23 @ 13:38 by Ольга Villanueva PA-C) Anxiety Chronic right heart failure COPD (chronic obstructive pulmonary disease) DM type 2 (diabetes mellitus, type 2) (~09/2016) Dyslipidemia History of pulmonary embolism (~02/2021) Morbid obesity Obstructive sleep apnea on CPAP Personal history of nicotine dependence Poor balance Pulmonary hypertension Tachycardia Urge incontinence Surgical History (Updated 01/22/23 @ 13:34 by Ольга Villanueva PA-C) History of cardiac cath History of carpal tunnel release (~2001) History of colonoscopy (~2015) History of endometrial ablation (~2003) History of esophagogastroduodenoscopy (EGD) (~2016) History of laparoscopic cholecystectomy (~2020) Family History Father Myocardial infarction Diabetes mellitus Mother Pancreatic cancer Maternal Grandfather Diabetes mellitus Maternal Aunt Pancreatic cancer Maternal Uncle AAA (abdominal aortic aneurysm) Brother No problems noted. Sister No problems noted. Sister No problems noted. Sister No problems noted. Son No problems noted. Daughter Substance use disorder Mental health disorder Daughter No problems noted. Social History (Updated 01/22/23 @ 13:39 by Ольга Villanueva PA-C) Household Members: Family Household Members Other:: Granddaughter Housing: House Housing Other:: Granddaughter Are you a primary wound care physician to a significant other at home: No Do you presently have visiting nurse or other home services: No Alcohol intake: current Alcohol intake frequency: holidays/special occasions only Patient Tobacco Use Status: Former Tobacco user (stopped 1 week ago) Quit Date: 2019 Years Smoked: (onset 19yo - 1/2ppd x 40years - 20pyh - quit in 2019) e-Cigarette/Vaping Use: Never Used Second Hand Smoke Exposure: No Substance Use Type: Marijuana service: No Current occupational status: disabled Cognitive needs: No Hearing needs: No Vision needs: No Assessment & Plan Assessment & Plan (1) Personal history of nicotine dependence: Comment: (former smoker - onset 19yo - 1/2ppd x 40years - 20pyh - quit in 2019) Code(s): Z87.891 - Personal history of nicotine dependence Plan: - SDM visit completed today in office. - Patient meets criteria for LDCT for lung cancer screening purposes and is asymptomatic. - Smoking cessation counseling offered. Patients can always call [phone]. - Will arrange for a LDCT scan of the chest for screening purposes at [facility]. - Risks, benefits, and alternatives were discussed in detail and the patient agrees to proceed. - Risks discussed include but are not limited to: radiation exposure, anxiety during testing and while awaiting results, false negatives, false positives and possibility of additional intervention such as further imaging or surgical procedures for benign disease. - Benefits are obviously detection of lung cancer at an early stage which can lead to improved outcomes. - Discussed the importance of screening program compliance with adherence to yearly LDCT scan as scheduled - or sooner interval scans for personalized screening regimen. - Discussed follow up plan. Our office will send a letter discussing results and if needed set up phone call and office visit based on CT findings. - Patient educated on results categorization and the management decisions for suspicious findings potentially found on the screening LDCT scan. Any patient with a Lung RADS score of 3 or 4 will be reviewed by a multidisciplinary team at [facility] to form a plan of action in regards to scan findings. - If further work up is warranted for a suspicious lung finding this will be followed by the Lung Cancer Screening program in conjunction with the Thoracic Surgery Department at [facility]. - A copy of the office note and LDCT will be sent to the patient's PCP - as well as documentation on any associated further plans of care. - Incidental findings on LDCT are the PCP's responsibility. These findings are indicated with an S finding on the LDCT Assessment. A note discussing the findings will be sent to the PCP who is then responsible for further management. - All questions answered.? - Would like a copy of LDCT sent to Dr. 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 Coding Level of Care Code Lung Cancer Screening G0296 Diagnoses Personal history of nicotine dependence Z87.891
== END 2023-01-22 13:47 | disposition home or self-care (01) ==
PROVIDERS: PCP Nurse Practitioner Family; Visit Provider Physician Assistant Medical
DX: Z87.891 Personal history of nicotine dependence (principal)
CPT/HCPCS: G0296

== ENCOUNTER 2023-01-22 13:37 | Outpatient (REF) | payer OTHER, SELFPAY ==
--- NOTE | ~2023-01-22 | CT_ITS ---
EXAMINATION: CT CHEST SCREENING CLINICAL INFORMATION: Nicotine dependence. COMPARISON: None available. TECHNIQUE: Multidetector volumetric CT imaging of the chest is performed without contrast using low dose technique. Additional 2D coronal and sagittal reformatted images and axial 3D maximum intensity projection (MIP) images are generated on the CT workstation. This CT examination was performed using dose optimization techniques as appropriate, variously including the following: *Automated exposure control *Adjustment of mA and/or kV according to patient size (this includes techniques or standardized protocols for targeted exams where dose is matched to indication/reason for exam; i.e. extremities or head) *Use of iterative reconstruction technique DLP: 80 mGy-cm FINDINGS: LUNGS: The lungs are well expanded and clear of acute pneumonic process. Mild plate-like atelectatic changes are seen in the right middle lobe and lingula. There are no pulmonary nodules, mass or consolidation. MEDIASTINUM: The thyroid lobes are symmetric and normal. The central trachea and bronchi are widely patent. No pericardial effusion seen. Heart size and the great vessels are normal caliber. No pericardial effusion seen. CORONARY ARTERY CALCIFICATION: Mild LAD coronary artery calcification seen. PLEURA: There is no pleural effusion. No pleural mass or thickening. AXILLA: No lymphadenopathy. UPPER ABDOMEN: Visualized liver, spleen, pancreas and bilateral adrenal glands unremarkable. The gallbladder has been surgically removed. OSSEOUS STRUCTURES: No aggressive lytic or sclerotic process seen. There is moderate spondylosis dorsal spine. CT/CT lung screening IMPRESSION: Minimal atelectatic changes right middle lobe. No nodule seen. Minimal coronary artery calcification. ASSESSMENT: Lung-RADS category 1: Negative RECOMMENDATION: Low-dose CT in 12 months.
== END 2023-01-22 13:38 | disposition home or self-care (01) ==
LOC: HO.CT 13:37
PROVIDERS: PCP Nurse Practitioner Family; Visit Provider Physician Assistant Medical
DX: Z12.2 Encounter for screening for malignant neoplasm of respiratory organs (principal); F17.210 Nicotine dependence, cigarettes, uncomplicated
CPT/HCPCS: 71271; G0296

== ENCOUNTER 2023-01-28 10:09 | Outpatient (AMB) | payer OTHER, SELFPAY ==
--- NOTE | 2023-01-28 10:21 | MHC.OFFVIS ---
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: No Accompanied by: Self / Same As Patient Allergies erythromycin base [From E-MYCIN] Allergy (Severe, Verified 01/28/23 10:24) GI PAIN-SEVERE carvedilol Allergy (Mild, Verified 01/28/23 10:24) upset stomach, sweats Medication List - Last Reconciled 01/28/23 by Darryl Cruz MD albuterol sulfate 90 mcg/actuation (Ventolin HFA) 2 puffs inhalation Q4H PRN 30 days allopurinol 300 mg daily apixaban (Eliquis) 5 mg PO BID atorvastatin 10 mg PO BEDTIME 30 days buspirone 15 mg PO BID 90 days cholecalciferol (vitamin D3) 125 mcg PO DAILY colchicine 0.6 mg PO DAILY dulaglutide (Trulicity) 3 mg (0.5 mL) subcut QWEEK 30 days flash glucose scanning reader ([employer] Ines 2 [place]) As directed flash glucose sensor (FreeStyle Ines 2 Sensor kit) As directed change every 14 days gabapentin 300 mg PO BID 30 days hydroxyzine HCl 50 mg PO BEDTIME PRN 30 days insulin glargine U-300 conc (Toujeo SoloStar U-300 Insulin) 15 units (0.05 mL) subcut BEDTIME ketoconazole 2% 1 appl topical BID montelukast 10 mg PO BEDTIME omeprazole 20 mg PO DAILY 90 days pen needle, diabetic (BD Janay 2nd Gen Pen Needle) As directed 1X DAILY prednisone For gout attack: 3 tabs once a day for 3 days, then 2 tabs once a day for 3 days, then 1 tab daily for 3 days; sildenafil (pulm.hypertension) 40 mg PO TID spironolactone 25 mg PO DAILY torsemide 60 mg PO DAILY HPI HPI Comments History of Present Illness Details Laura returns for follow-up. She carries a diagnosis of right heart failure as well as pulmonary hypertension. Overall, she is doing okay. Shortness of breath seems to be at baseline. No significant leg swelling. Last year, we had referred her to [facility] for pulmonary hypertension management. Patient states that she underwent a recent right heart catheterization was told that the numbers are looking better. She showed us the numbers on her smart phone. Will need to get all the detailed records. Otherwise, she states she is doing generally okay. [facility] Medical History (Updated 01/22/23 @ 13:38 by Ольга Villanueva PA-C) Anxiety Chronic right heart failure COPD (chronic obstructive pulmonary disease) DM type 2 (diabetes mellitus, type 2) (~09/2016) Dyslipidemia History of pulmonary embolism (~02/2021) Morbid obesity Obstructive sleep apnea on CPAP Personal history of nicotine dependence Poor balance Pulmonary hypertension Tachycardia Urge incontinence Surgical History History of cardiac cath History of carpal tunnel release (~2001) History of colonoscopy (~2015) History of endometrial ablation (~2003) History of esophagogastroduodenoscopy (EGD) (~2016) History of laparoscopic cholecystectomy (~2020) Family History Father Myocardial infarction Diabetes mellitus Mother Pancreatic cancer Maternal Grandfather Diabetes mellitus Maternal Aunt Pancreatic cancer Maternal Uncle AAA (abdominal aortic aneurysm) Brother No problems noted. Sister No problems noted. Sister No problems noted. Sister No problems noted. Son No problems noted. Daughter Substance use disorder Mental health disorder Daughter No problems noted. Social History Household Members: Family Household Members Other:: Granddaughter Housing: House Housing Other:: Granddaughter Are you a primary vocational childcare teacher to a significant other at home: No Do you presently have visiting nurse or other home services: No Alcohol intake: current Alcohol intake frequency: holidays/special occasions only Patient Tobacco Use Status: Former Tobacco user (stopped 1 week ago) Quit Date: 2019 Years Smoked: (onset 19yo - 1/2ppd x 40years - 20pyh - quit in 2019) e-Cigarette/Vaping Use: Never Used Second Hand Smoke Exposure: No Substance Use Type: Marijuana service: No Current occupational status: disabled Cognitive needs: No Hearing needs: No Vision needs: No Review of Systems Const Denies weakness ENT Denies dizziness Card Denies chest pain, Denies chest pain with activity, Denies syncope, Denies rapid heart rate, Denies pedal edema, Denies edema, Denies leg edema, Denies lightheadedness, Denies palpitations, Denies dyspnea, Denies dyspnea on exertion and Denies orthopnea Resp Denies cough, Denies dyspnea and Denies dyspnea on exertion GI Denies hematochezia and Denies change in stool character Musc Denies abnormal gait, Denies muscle cramps, Denies muscle weakness, Denies numbness, Denies radiating pain into limb and Denies tingling Neuro Denies abnormal gait, Denies dizziness, Denies syncope, Denies numbness, Denies tingling and Denies weakness Endo Denies palpitations Physical Exam Vital Signs: Last Vital Signs Pulse 75 01/28/23 10:22 BP 122/84 01/28/23 10:22 BMI result Body Mass Index 43.1 Const General: comfortable and no acute distress Orientation/consciousness: patient oriented x3 HEENT Other: Unremarkable Head: Yes normal to inspection Neck Neck: Yes normal visual inspection Chest Chest palpation & inspection: normal inspection of the chest Resp Auscultation: clear to auscultation bilaterally Cardio Palpation: normal PMI Heart sounds: S1 normal heart sound present, S2 normal heart sound present, no gallops, no murmurs and no rubs GI Palpation (GI): Soft to palpation Back/Spine/Pelvis Other: unremarkable Skin General skin exam: no rashes or lesions noted Neuro General: patient oriented x3 Extrem General: Yes normal to inspection Psych Mental Status: mental status grossly normal Office Procedures EKG Details: EKG shows underlying sinus rhythm; biatrial enlargement; right bundle-branch block; downsloping ST/T inversions across the precordial leads. Overall similar to before. Could be related to right ventricular strain pattern. [id number], Complete Assessment & Plan Assessment & Plan (1) Chronic right heart failure: Code(s): I50.812 - Chronic right heart failure Plan: (2) Pulmonary hypertension: Code(s): I27.20 - Pulmonary hypertension, unspecified (3) JACKSON (obstructive sleep apnea): Code(s): G47.33 - Obstructive sleep apnea (adult) (pediatric) (4) Pulmonary embolism: Onset Date: ~02/2021 Comment: (Subsegmental PE in lateral aspect of posterior segment of RUL - dx 02/2021) Code(s): I26.99 - Other pulmonary embolism without acute cor pulmonale Qualifiers: Acute cor pulmonale presence: without acute cor pulmonale Chronicity: chronic Pulmonary embolism type: other Qualified Code(s): I27.82 - Chronic pulmonary embolism (5) Morbid obesity: Code(s): E66.01 - Morbid (severe) obesity due to excess calories Plan Patient is able to pull up her right heart catheterization on her smart phone. Performed few weeks back. In that study, PA pressures were 73/16/43 mm Hg. Wedge was 14/14/10 mm Hg. RA 12/10/8 mm Hg. Patient states that she was told that it was improved compared to before. We will get though records from the same. Otherwise, it seems that she also had another echocardiogram at [facility] and will need to get that as well. With regard to the actual right heart failure she seems to be doing okay. May remain on the current meds including torsemide/spironolactone without changes. May continue sildenafil without changes. With regard to anticoagulation, advised her to check with pulmonary hypertension clinic if she still needs to continue as it has been a couple of years. She will do that. Follow-up in 6 months. Coding Level of Care Code Est Pt Level 4 (08792) Diagnoses Chronic right heart failure I50.812 Pulmonary hypertension I27.20 JACKSON (obstructive sleep apnea) G47.33 Pulmonary embolism I27.82 Acute cor pulmonale presence: without acute cor pulmonale Chronicity: chronic Pulmonary embolism type: other Morbid obesity E66.01 CPT Codes EKG - CPT: 23344-[id number], Complete ([id number])
[2023-01-28 10:22] VITALS: BP 122/84; PULSE 75; BMI 43.1
== END 2023-01-28 10:49 | disposition home or self-care (01) ==
PROVIDERS: Visit Provider Internal Medicine
DX: I50.812 Chronic right heart failure (principal); I27.20 Pulmonary hypertension, unspecified; G47.33 Obstructive sleep apnea (adult) (pediatric); I27.82 Chronic pulmonary embolism; E66.01 Morbid (severe) obesity due to excess calories
CPT/HCPCS: 93010; 99214

== ENCOUNTER → 2023-01-28 10:09 | Outpatient (BNVA) | payer OTHER, SELFPAY | PROVIDERS: Visit Provider Internal Medicine | DX: I50.812 Chronic right heart failure (principal); I27.20 Pulmonary hypertension, unspecified; I27.82 Chronic pulmonary embolism; G47.33 Obstructive sleep apnea (adult) (pediatric); E66.01 Morbid (severe) obesity due to excess calories | CPT/HCPCS: 93005; 99212 ==

== ENCOUNTER 2023-02-01 13:03 | Outpatient (AMB) | payer OTHER, SELFPAY ==
[2023-02-01 13:07] VITALS: BP 152/88; PULSE 88; O2SAT 94; BMI 43.9
--- NOTE | 2023-02-01 13:07 | MHC.PC.OV ---
Vital Signs 02/01/23 13:07 Height 5 ft 2 in Weight 240 lb 2 oz BMI 43.9 BP 152/88 H Blood Pressure Location Lt brachial Position Sitting Pulse 88 Pulse Source Pulse Oximeter Pulse Oximetry (%) 94 Oxygen Delivery Method Room Air Intake Visit Reasons: Left knee pain ? of michael, [phone] Intake Note: pt is here for left knee pain that started last Wednesday pt says she thinks she may have twisted it the wrong way getting up and it feels sponge like Allergies erythromycin base [From E-MYCIN] Allergy (Severe, Verified 02/01/23 13:11) GI PAIN-SEVERE carvedilol Allergy (Mild, Verified 02/01/23 13:11) upset stomach, sweats Tobacco use date assessed: 02/01/23 Dental Screening Dental Screen Date: 02/01/23 Did you have a dental visit in the last 12 months?: No Did you have a dental problem in the last 6 months where you did not have access to dental care?: No Was dental information given to patient?: Patient declined HPI Left knee pain ? of michael, [phone] HPI Details Pt reports left knee pain since last Wednesday after standing up from a curb and possibly twisting her knee. She reports that her knee is not swollen but feels spongy. Will order xr. Denies fever, chills, and dizziness. 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[facility]) Anxiety Chronic right heart failure COPD (chronic obstructive pulmonary disease) DM type 2 (diabetes mellitus, type 2) (~09/2016) Dyslipidemia History of pulmonary embolism (~02/2021) Morbid obesity Obstructive sleep apnea on CPAP Personal history of nicotine dependence Poor balance Pulmonary hypertension Tachycardia Urge incontinence Surgical History History of cardiac cath History of carpal tunnel release (~2001) History of colonoscopy (~2015) History of endometrial ablation (~2003) History of esophagogastroduodenoscopy (EGD) (~2016) History of laparoscopic cholecystectomy (~2020) Family History Father Myocardial infarction Diabetes mellitus Mother Pancreatic cancer Maternal Grandfather Diabetes mellitus Maternal Aunt Pancreatic cancer Maternal Uncle AAA (abdominal aortic aneurysm) Brother No problems noted. Sister No problems noted. Sister No problems noted. Sister No problems noted. Son No problems noted. Daughter Substance use disorder Mental health disorder Daughter No problems noted. Social History Household Members: Family Household Members Other:: Granddaughter Housing: House Housing Other:: Granddaughter Are you a primary hearing care professional to a significant other at home: No Do you presently have visiting nurse or other home services: No Alcohol intake: current Alcohol intake frequency: holidays/special occasions only Patient Tobacco Use Status: Current someday Tobacco user (stopped 1 week ago) Years Smoked: (onset 19yo - 1/2ppd x 40years - 20pyh - quit in 2019) e-Cigarette/Vaping Use: Never Used Second Hand Smoke Exposure: No Substance Use Type: Marijuana service: No Current occupational status: disabled Cognitive needs: No Hearing needs: No Vision needs: No Questionnaire Thrive Questionnaire Date Thrive assessed: 07/14/22 PATRICIA-7 AMB Questionnaire PATRICIA-7 Date PATRICIA - 7 assessed: 07/14/22 Source: Developed by Drs. Chalo Li, Graciela Byrd, Baldo Lofton and colleagues, with an educational lucero from [employer]. Review of Systems Const Reports as per HPI Physical exam (Primary Care) Vital Signs: Last Vital Signs Pulse 88 02/01/23 13:07 BP 152/88 H 02/01/23 13:07 Pulse Ox 94 02/01/23 13:07 Oxygen Delivery Method Room Air 02/01/23 13:07 BMI result Body Mass Index 43.9 Tobacco/Smoking Status: Tobacco use Status Tobacco use date assessed 02/01/23 02/01/23 13:17 Patient Tobacco Use Status Current someday Tobacco ( 02/01/23 13:17 stopped 1 week ago) e-Cigarette/Vaping Use Never Used 02/01/23 13:09 Thrive Assessment: Date of Thrive Assessment Date Thrive assessed 07/14/22 02/01/23 13:09 Const General: cooperative Nutritional Appearance: obese morbidly obese Orientation/consciousness: patient oriented x3 Limitations: ambulation with cane Resp Effort & Inspection: normal respiratory effort Auscultation: clear to auscultation bilaterally Cardio Rate: regular rate Rhythm: regular rhythm Heart sounds: S1 normal heart sound present and S2 normal heart sound present Neuro General: patient oriented x3 Extrem Other: left knee: - lachmans, - mcmurrays, tenderness noted with extension and flexion Psych Appearance: grossly normal Mental Status: mental status grossly normal Speech and movement: Normal speech and movement present Affect: normal affect Attitude: cooperative Thought process: Normal thought process present Thought content: Normal thought content present Insight: Good insight present (Psych) Judgement: Good judgement present (Psych) Assessment and Plan Assessment & Plan (1) Left knee pain: Code(s): M25.562 - Pain in left knee Plan: XR ordered Plan The patient agreed to the use of a medical laboratory technical officer for this encounter. Scribed for MARILYN Pritchett by Nelia Phillips medical laboratory technical officer, on 02/01/2023 at 13:30 EST. Orders: Orders PT Evaluation and Treatment Today M25.562 - Pain in left knee Coding Level of Care Code Est Pt Level 3 (52860) Diagnoses Left knee pain M25.562
== END 2023-02-01 14:41 | disposition home or self-care (01) ==
PROVIDERS: PCP Nurse Practitioner Family; Visit Provider Nurse Practitioner Family
DX: M25.562 Pain in left knee (principal)
CPT/HCPCS: 99213

== ENCOUNTER 2023-02-01 13:37 | Outpatient (REF) | payer OTHER, SELFPAY ==
--- NOTE | ~2023-02-01 | XR_ITS ---
EXAMINATION: XR KNEE, LEFT CLINICAL INFORMATION: Left knee pain COMPARISON: None available. TECHNIQUE: Four views of the left knee. FINDINGS: Slight to mild narrowing in the medial joint space compartment. No acute bony fracture or dislocation. Spurring of femoral condyles, tibial plateau, and patella. There is a small suprapatellar effusion. XR/XR knee LT 4V IMPRESSION: 1. Degenerative changes. No acute fracture or dislocation. 2. Small suprapatellar effusion.
== END 2023-02-01 13:38 | disposition home or self-care (01) ==
LOC: HO.HMGCX 13:37
PROVIDERS: PCP Nurse Practitioner Family; Visit Provider Nurse Practitioner Family
DX: M25.562 Pain in left knee (principal)
CPT/HCPCS: 73564

== ENCOUNTER 2023-02-06 11:34 | Outpatient (AMB) | payer OTHER, SELFPAY ==
--- NOTE | 2023-02-06 11:35 | MHC.OFFWIV ---
Intake Vital Signs 02/06/23 11:41 BP 102/80 Blood Pressure Location Lt brachial Position Sitting Pulse 98 Pulse Source Pulse Oximeter Temp 98.5 F Temp Source Oral Pulse Oximetry (%) 93 Oxygen Delivery Method Room Air Intake Visit Reasons: Cough Intake Note: Pt is here today c/o cough x4 days chest congestion Patient Tobacco Use Status: Current someday Tobacco user (stopped 1 week ago) Allergies erythromycin base [From E-MYCIN] Allergy (Severe, Verified 02/06/23 11:55) GI PAIN-SEVERE carvedilol Allergy (Mild, Verified 02/06/23 11:55) upset stomach, sweats Medication List - Last Reconciled 02/06/23 by Supriya Coto CNP albuterol sulfate 90 mcg/actuation (Ventolin HFA) 2 puffs inhalation Q4H PRN 30 days allopurinol 300 mg daily apixaban (Eliquis) 5 mg PO BID atorvastatin 10 mg PO BEDTIME 30 days buspirone 15 mg PO BID 90 days cholecalciferol (vitamin D3) 125 mcg PO DAILY colchicine (gout) 0.6 mg PO DAILY dulaglutide (Trulicity) 3 mg (0.5 mL) subcut QWEEK 30 days flash glucose scanning reader ([employer] Ines 2 [place]) As directed flash glucose sensor (FreeStyle Ines 2 Sensor kit) As directed change every 14 days gabapentin 300 mg PO BID 30 days hydroxyzine HCl 50 mg PO BEDTIME PRN 30 days insulin glargine U-300 conc (Touje[employer] SoloStar U-300 Insulin) 15 units (0.05 mL) subcut BEDTIME ketoconazole 2% 1 appl topical BID montelukast 10 mg PO BEDTIME omeprazole 20 mg PO DAILY 90 days pen needle, diabetic (BD Janay 2nd Gen Pen Needle) As directed 1X DAILY sildenafil (pulm.hypertension) 40 mg PO TID spironolactone 25 mg PO DAILY torsemide 60 mg PO DAILY HPI HPI Comments History of Present Illness Details 62-year-old female presents today for sick visit complaining of chest congestion and cough x4 days. She reports fever and chills initially, but no fever or chills in the past 24 hrs, she also endorses coughing up yellowish green sputum, and SOB. PMH significant for hypertension, Type II DM, hyperlipidemia, CHF, obstructive sleep apnea on CPAP and COPD. She denies CP, lightheadedness, orthropnea, wheezing, increased edema, abdominal pain, nausea, vomiting, changes in bowels or bladder. [facility] Medical History Anxiety Chronic right heart failure COPD (chronic obstructive pulmonary disease) DM type 2 (diabetes mellitus, type 2) (~09/2016) Dyslipidemia History of pulmonary embolism (~02/2021) Morbid obesity Obstructive sleep apnea on CPAP Personal history of nicotine dependence Poor balance Pulmonary hypertension Tachycardia Urge incontinence Surgical History History of cardiac cath History of carpal tunnel release (~2001) History of colonoscopy (~2015) History of endometrial ablation (~2003) History of esophagogastroduodenoscopy (EGD) (~2016) History of laparoscopic cholecystectomy (~2020) Family History Father Myocardial infarction Diabetes mellitus Mother Pancreatic cancer Maternal Grandfather Diabetes mellitus Maternal Aunt Pancreatic cancer Maternal Uncle AAA (abdominal aortic aneurysm) Brother No problems noted. Sister No problems noted. Sister No problems noted. Sister No problems noted. Son No problems noted. Daughter Substance use disorder Mental health disorder Daughter No problems noted. Social History Household Members: Family Household Members Other:: Granddaughter Housing: House Housing Other:: Granddaughter Are you a primary career center director to a significant other at home: No Do you presently have visiting nurse or other home services: No Alcohol intake: current Alcohol intake frequency: holidays/special occasions only Patient Tobacco Use Status: Current someday Tobacco user (stopped 1 week ago) Years Smoked: (onset 19yo - 1/2ppd x 40years - 20pyh - quit in 2019) e-Cigarette/Vaping Use: Never Used Second Hand Smoke Exposure: No Substance Use Type: Marijuana service: No Current occupational status: disabled Cognitive needs: No Hearing needs: No Vision needs: No Review of Systems Const All systems reviewed & are unremarkable except as noted in HPI and below Physical Exam Vital Signs: Last Vital Signs Temp 98.5 F 02/06/23 11:41 Pulse 98 02/06/23 11:41 BP 102/80 02/06/23 11:41 Pulse Ox 93 02/06/23 11:41 Oxygen Delivery Method Room Air 02/06/23 11:41 Const General: cooperative and no acute distress Nutritional Appearance: obese Orientation/consciousness: patient oriented x3 Limitations: no limitations HEENT Head: Yes normal to inspection, Yes normocephalic and Yes atraumatic Ears: hearing grossly normal bilaterally and TM's normal bilaterally General nose exam: Normal nasal mucous membranes and turbinates present Face and sinus: Yes sinuses nontender Mouth: Normal oral and palatal mucosa present Throat: Yes posterior oropharynx normal Eyes General: appearance normal, both eyes and all related structures Conjunctivae: conjunctivae normal Sclerae: sclerae normal Neck Neck: Yes normal visual inspection, Yes no lymphadenopathy, Yes no meningeal signs and Yes supple Chest Chest palpation & inspection: normal inspection of the chest Resp Effort & Inspection: Actively coughing Quality: productive and tachypneic Auscultation: no rales, rhonchi right upper and right lower and no wheezes Cardio Rate: regular rate Rhythm: regular rhythm Heart sounds: S1 normal heart sound present, S2 normal heart sound present and Murmur heart sound present diastolic IV/ and at the right sternal border Peripheral pulses: Peripheral pulses 2+ throughout GI Inspection: Yes obesity Palpation (GI): Soft to palpation and nontender Auscultation: normal bowel sounds General: Yes no CVA tenderness Back/Spine/Pelvis Back: no CVA tenderness Skin General skin exam: turgor normal Neuro General: patient oriented x3, gait normal, moves all extremities and no meningeal signs Extrem General: Yes capillary refill normal and Yes edema (+1 bilateral lower legs, no foot edema) Psych Appearance: well kempt Mental Status: mental status grossly normal Speech and movement: Normal speech and movement present Affect: normal affect Attitude: cooperative Assessment & Plan Assessment & Plan (1) COPD exacerbation: Code(s): J44.1 - Chronic obstructive pulmonary disease with (acute) exacerbation Plan: 62-year-old female with history of COPD seen today for complaint of cough w/ productive yellowish green sputum, increase chest congestion, increased SOB x 4 days. Will treat empirically with Doxycycline 100 mg po bid x7 days Prednisone tapered dose, 20 mg po bid x 3 days, followed by 20 mg po qd x 3 days, followed by 1/2 tab (10 mg) po qd x 3 days. Encouraged to follow up with PCP Return to office for unrelieved symptoms or ER for increased SOB, or onset of CP (2) Bronchitis: Code(s): J40 - Bronchitis, not specified as acute or chronic Orders: Orders SARS-CoV2/FLU/RSV Today R05.9 - Cough, unspecified, R09.89 - Other specified symptoms and signs involving the circulatory and respiratory systems Medications: New doxycycline monohydrate 100 mg PO BID 14 caps 0RF J40 - Bronchitis, not specified as acute or chronic prednisone tapered dose; 20 mg po bid x 3 days, followed by 20 mg po qd x 3 days, followed by 1/2 tablet po x 3 days, then discontinue 20 mg PO BID 11 tabs 0RF J44.1 - Chronic obstructive pulmonary disease with (acute) exacerbation Coding Level of Care Code Est Pt Level 3 (86266) Diagnoses COPD exacerbation J44.1 Bronchitis J40
[2023-02-06 11:41] VITALS: BP 102/80; PULSE 98; TEMP 36.9; O2SAT 93
== END 2023-02-06 12:12 | disposition home or self-care (01) ==
PROVIDERS: PCP Nurse Practitioner Family; Visit Provider Nurse Practitioner Acute Care
DX: J44.1 Chronic obstructive pulmonary disease with (acute) exacerbation (principal); J40 Bronchitis, not specified as acute or chronic
CPT/HCPCS: 99051; 99213

== ENCOUNTER 2023-02-06 11:56 | Outpatient (REF) | payer OTHER, SELFPAY ==
[2023-02-07 05:52] LABS: Influenza A PCR NEGATIVE (Negative); Influenza B PCR NEGATIVE (Negative); Resp Syncy Virus RNA Qual PCR NEGATIVE (Negative); SARS COV2 PCR INHOUSE NEGATIVE (Negative)
== END 2023-02-06 11:57 | disposition home or self-care (01) ==
LOC: HO.LAB 11:56
PROVIDERS: Visit Provider Nurse Practitioner Acute Care
DX: R05.9 Cough, unspecified (principal); R09.89 Other specified symptoms and signs involving the circulatory and respiratory systems; Z20.822 Contact with and (suspected) exposure to COVID-19
CPT/HCPCS: 0241U

== ENCOUNTER 2023-03-04 08:02 | Outpatient (AMB) | payer OTHER, SELFPAY ==
--- NOTE | 2023-03-04 08:10 | A.OFFVIS_ITS ---
Intake Vital Signs 03/04/23 08:21 Height 5 ft 2 in Weight 234 lb 5.622 oz BMI 42.9 BP 128/80 Blood Pressure Location Rt brachial Position Sitting Pulse 74 Pulse Source Pulse Oximeter Temp 97.2 F Temp Source Skin Pulse Oximetry (%) 96 Oxygen Delivery Method Room Air Intake Visit Reasons: Gout Intake Note: Here to follow up on goat. 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 She remains on 300 mg daily allopurinol. There have been occasional episodes of pain in the 1st MTPs bilaterally. They do not really seem to swell much. She does get occasional prednisone for her lung disease. There was such an event a few weeks ago she got antibiotics and prednisone. She did twist the left knee and it has been sore but she says it is improving. She had it x-rayed. Theere does not appear to be any problems with the allopurinol in terms of side effects. [facility] Medical History Anxiety Chronic right heart failure COPD (chronic obstructive pulmonary disease) DM type 2 (diabetes mellitus, type 2) (~09/2016) Dyslipidemia History of pulmonary embolism (~02/2021) Morbid obesity Obstructive sleep apnea on CPAP Personal history of nicotine dependence Poor balance Pulmonary hypertension Tachycardia Urge incontinence Surgical History History of cardiac cath History of carpal tunnel release (~2001) History of colonoscopy (~2015) History of endometrial ablation (~2003) History of esophagogastroduodenoscopy (EGD) (~2016) History of laparoscopic cholecystectomy (~2020) Family History Father Myocardial infarction Diabetes mellitus Mother Pancreatic cancer Maternal Grandfather Diabetes mellitus Maternal Aunt Pancreatic cancer Maternal Uncle AAA (abdominal aortic aneurysm) Daughter Substance use disorder Mental health disorder Social History Household Members: Family Household Members Other:: Granddaughter Housing: House Housing Other:: Granddaughter Are you a primary healthcare associate to a significant other at home: No Do you presently have visiting nurse or other home services: No Alcohol intake: current Alcohol intake frequency: holidays/special occasions only Patient Tobacco Use Status: Current someday Tobacco user (stopped 1 week ago) Years Smoked: (onset 19yo - 1/2ppd x 40years - 20pyh - quit in 2020) e-Cigarette/Vaping Use: Never Used Second Hand Smoke Exposure: No Substance Use Type: Marijuana service: No Current occupational status: disabled Cognitive needs: No Hearing needs: No Vision needs: No Review of Systems Const Details: Negative for appetite change, weight change, fever, chills, malaise and fatigue Resp Details: She has her usual occasional cough and dyspnea. This is back to baseline. GI Details: Negative indigestion/heartburn, nausea, abdominal pain, bowel changes, diarrhea, constipation and bloody stool. Skin/Breast Details: Negative for itching, rash, hives, Raynaud's symptoms, sun sensitivity, and skin cancer Kody/Lymph Details: Negative for excessive bruising or bleeding. Physical Exam Vital Signs: Last Vital Signs Temp 97.2 F 03/04/23 08:21 Pulse 74 03/04/23 08:21 BP 128/80 03/04/23 08:21 Pulse Ox 96 03/04/23 08:21 Oxygen Delivery Method Room Air 03/04/23 08:21 BMI result Body Mass Index 42.9 APPEARANCE: Patient in no acute distress EYES no redness, pupils equal and reactive to light, eyelids normal EXTREMITIES: Some venous stasis changes with dusky discoloration and dryness. This is in the anterior pretibial region bilaterally, more prominent on the left. The skin is not tender and there are no breaks in the skin.. JOINT EXAM: ?? JOINT EXAM:?? Cervical Spine:.? Mild discomfort with extremes of normal range of motion; no tenderness. Thoracic Spine:.? No scoliosis.? No tenderness on palpation. Lumbar Spine:.? Alignment normal.? Full range of motion with mild discomfort.? No tenderness. Chest Wall:.? No tenderness, swelling, increased warmth or erythema. Hands:? Right:? No pain with range of motion of the fingers or thumb.? There is mild tenderness at base of the thumb.? There is nontender bony enlargement at all the PIP and the 2nd and 3rd DIP joints.? There is no thenar atrophy or sensory loss.? Left:? Mild tenderness at the base of the thumb.? There is no flexor tendon triggering or tenderness. There is slight bony enlargement at the thumb IP and 2nd through 4th PIP is without tenderness.? There is slight tenderness, or marked more bony enlargement in flexion deformity at the 5th PIP.? There is some bony enlargement at the 2nd PIP without tenderness.? There is no thenar atrophy or sensory loss.? Wrists:.? Right:? Slight soft tissue, fluctuant swelling over the dorsum of the hand.? This is not the tender, red or warm.? The range of motion seems intact.? This could be a ganglion cyst or soft tissue deposit from gout.? Left:? Normal pain-free range of motion without tenderness, swelling, increased warmth or erythema. Elbows:.? Right:? There is normal pain-free range of motion.? There is no tenderness over the joint space. There is some slight thickening without tenderness over the bursa region. There is no drainage evident. Left:? There is some thickening without tenderness of the olecranon bursa.? It is not tender.? The joint has normal pain-free range of motion without tenderness, swelling, increased warmth or erythema. Shoulders:.?? Full range of motion with mild discomfort at the extremes of motion with some minimal anterior tenderness but no adenopathy, weakness, swelling, increased warmth or erythema. Hips:.? Right:? Mild to moderate lumbar pain on the left with extremes of normal internal or external rotation.? Left:? Full range of motion without pain. Hip bursa:.? No tenderness. Knees:.? Left: Mild patellofemoral crepitus and some slight medial patellar tenderness without redness or swelling. No ligamentous instability. Right:? Normal pain-free range of motion with mild patellofemoral crepitus but no effusion, out tenderness, swelling, increased warmth or erythema.? Ankles:.? Normal pain-free range of motion without tenderness, swelling, increased warmth or erythema. Feet:.? Right:? Mild to moderate bony enlargement at the 1st MTP joint with no tenderness.? Elsewhere in the foot there is no tenderness or swelling.? Left:? There is slightly more bony enlargement at the 1st MTP but no redness or warmth.? There is no tenderness or swelling elsewhere. Results Reviewed Results Reviewed: Laboratory Tests 01/12/23 01/12/23 01/12/23 09:37 09:37 09:37 WBC 8.4 Hgb 16.5 H Creatinine 1.06 Uric Acid 7.8 H Assessment & Plan Assessment & Plan (1) Gout: Comment: allopurinol started 03/2022 Code(s): M10.9 - Gout, unspecified Plan She has occasional aches in the feet but there are some degenerative changes there. I do not think she has had any gout attacks. None the less her uric acid level is not at target with current dose of allopurinol so we will increase it up to 400 mg daily. We will recheck the uric acid again in about 6 weeks. She was warned that she could have a flare of gout when she changes this dose so should call us for a course of prednisone if need be. We will have her follow- up with us in about 3 months. Orders: Orders 2 Uric Acid Today M10.9 - Gout, unspecified Creatinine Today M10.9 - Gout, unspecified Medications: Changed From allopurinol (3 x 100 mg) 300 mg daily 90 tabs 5RF M10.9 - Gout, unspecified To allopurinol 400 mg orally daily; 400 mg (4 x 100 mg) PO DAILY 120 tabs 5RF M10.9 - Gout, unspecified Coding Level of Care Code Est Pt Level 3 (87155) Diagnoses Gout M10.9
[2023-03-04 08:21] VITALS: BP 128/80; PULSE 74; TEMP 36.2; O2SAT 96; BMI 42.9
== END 2023-03-04 08:40 | disposition home or self-care (01) ==
PROVIDERS: PCP Nurse Practitioner Family; Visit Provider Internal Medicine Rheumatology
DX: M10.9 Gout, unspecified (principal)
CPT/HCPCS: 99213

== ENCOUNTER → 2023-03-04 08:02 | Outpatient (BNVA) | payer OTHER, SELFPAY | PROVIDERS: PCP Nurse Practitioner Family; Visit Provider Internal Medicine Rheumatology | DX: M10.9 Gout, unspecified (principal); Z79.899 Other long term (current) drug therapy | CPT/HCPCS: 99212 ==

== ENCOUNTER 2023-04-30 15:12 | Outpatient (REF) | payer OTHER, SELFPAY ==
[2023-04-30 16:56] LABS: Estimated Glomerular Filt Rate > 60; Uric Acid 8.3 mg/dL (2.4-5.7)
[2023-04-30 16:58] LABS: Anion Gap 15 (12-20); Blood Urea Nitrogen 16 mg/dL (9-16); Carbon Dioxide 27 mmol/L (22-29); Chloride 102 mmol/L (96-108); Estimated Glomerular Filt Rate > 60; Glucose Random 179 mg/dL (60-115); Magnesium 1.7 mg/dL (1.6-2.6); Potassium 3.8 mmol/L (3.3-5.1); Sodium 140 mmol/L (135-145)
[2023-04-30 17:01] LABS: B Type Natriuretic Peptide 352 pg/mL (<100)
== END 2023-04-30 15:13 | disposition home or self-care (01) ==
LOC: HO.HMGCLDS 15:12
PROVIDERS: Internal Medicine Rheumatology; PCP Nurse Practitioner Family; Visit Provider Internal Medicine Pulmonary Disease
DX: M10.9 Gout, unspecified (principal); R06.02 Shortness of breath; I50.32 Chronic diastolic (congestive) heart failure
CPT/HCPCS: 36415; 80048; 82565; 83735; 83880; 84550

== ENCOUNTER 2023-06-15 13:27 | Outpatient (AMB) | payer OTHER, SELFPAY ==
[2023-06-15 13:29] VITALS: BP 110/68; PULSE 80; BMI 43.2
--- NOTE | 2023-06-15 13:29 | A.OFFVIS_ITS ---
Intake Vital Signs 06/15/23 13:29 Height 5 ft 2 in Weight 236 lb 1.841 oz BMI 43.2 BP 110/68 Blood Pressure Location Lt brachial Position Sitting Pulse 80 Pulse Source Pulse Oximeter Intake Visit Reasons: DM-CONFIRMED Intake Note: Patient present today to follow up on Type 2 Diabetes Mellitus. Patient receives DME supplies through: Pharmacy Last Diabetic Eye exam: 04/07/2023 Last Podiatry Visit: None Random Glucose: 144 mg/dl HgA1C: 7.1% Foreign Collection Clerk Required: No Accompanied by: Self / Same As Patient Allergies erythromycin base [From E-MYCIN] Allergy (Severe, Verified 06/15/23 13:41) GI PAIN-SEVERE carvedilol Allergy (Mild, Verified 06/15/23 13:41) upset stomach, sweats Medication List - Last Reconciled 06/15/23 by Chalo Nuno MD albuterol sulfate 90 mcg/actuation (Ventolin HFA) 2 puffs inhalation Q4H PRN 30 days allopurinol 400 mg (4 x 100 mg) PO DAILY apixaban (Eliquis) 5 mg PO BID atorvastatin 10 mg PO BEDTIME 30 days buspirone 15 mg PO BID 90 days cholecalciferol (vitamin D3) 125 mcg PO DAILY colchicine 0.6 mg PO DAILY dulaglutide (Trulicity) 3 mg (0.5 mL) subcut QWEEK flash glucose scanning reader ([employer]unction[employer] Ines 2 [place]) As directed flash glucose sensor (FreeStyle Ines 2 Sensor kit) As directed change every 14 days gabapentin 300 mg PO BID 30 days hydroxyzine HCl 50 mg PO BEDTIME PRN 30 days insulin glargine U-300 conc (Toujeo SoloStar U-300 Insulin) 15 units (0.05 mL) subcut BEDTIME ketoconazole 2% 1 appl topical BID PRN metformin 1,000 mg PO BID montelukast 10 mg PO BEDTIME omeprazole 20 mg PO DAILY 90 days pen needle, diabetic (BD Janay 2nd Gen Pen Needle) As directed 1X DAILY sildenafil (pulm.hypertension) 40 mg PO TID spironolactone 25 mg PO DAILY torsemide 60 mg PO DAILY treprostinil-neb accessories 1.74 mg/2.9 mL (0.6 mg/mL) (Tyvaso Refill Kit) inhalation HPI HPI Comments History of Present Illness Details 62-year-old female , today for follow-up for diabetes management. She reports that she did not tolerate jardiance she had to stop because she was having hypoglycemia in the 50s. She also was feeling very weak. She has DM type 2 diagnosed , September 2016. She is Currently on Toujeo 15 units daily , Trulicity 3 mg weekly, tolerating well. Metformin 1000 mg BID Ines download shows she is using the sensor 49% of the time. Average glucose is 129 with standard deviation of 25.9%. 91% range with 9% hyperglycemia and no hypoglycemia Hypoglycemia : None Complications: no retinopathy, + nephropathy, no neuropathy, no CVA, CAD, PVD. Last ophthalmology evaluation : no retinopathy. scheduled r Feb 2023 She had a dexamethasone suppression test that was abnormal. She has physical findings suggestive of [place] like plethora, visible vessels, supraclavicular fat pad and dorsocervical fat pad. Midnight salivary cortisol level was normal. She was supposed to do another midnight salivary cortisol but did not get done Positive nocturia 2 times, denies numbness, tingling, polydipsia. Patient has significant weight gain in the past but now she is losing weight after she is on diuretics. CT ABDOMEN WITHOUT AND WITH CONTRAST LIVER, GALLBLADDER, AND BILIARY TREE: The liver is slightly low in attenuation suggestive of mild fatty infiltration. There are 2 small low-attenuation liver lesions measuring 7 mm high in the junction of the medial segment of the left lobe and anterior segment of the right lobe axial image 20 series 6 and in the peripheral anterior segment of the right lobe axial image 37 series 6 that are stable from 2016 and therefore probably benign. The gallbladder has been removed. There is no biliary duct dilatation. PANCREAS: Normal SPLEEN: Normal ADRENAL GLANDS AND KIDNEYS: The adrenal glands are normal. No nodule is seen. There is a small 1 cm low-attenuation lesion in the lower pole of the left kidney that is stable from previous exam from 2016 and is suggestive of a cyst.. The kidneys are otherwise unremarkable. Laboratory Tests 12/30/19 09/28/20 09/28/20 08:26 08:30 08:30 Creatinine Estimated GFR POC Glucose Cortisol 2.1 2.2 L Transcortin ACTH <5 L <5 L Saliva Cortisol Dexamethasone SEE NOTE 09/28/20 09/28/20 10/15/20 08:30 Unknown 08:59 Creatinine 1.11 Estimated GFR 50 POC Glucose Cortisol Transcortin ACTH Saliva Cortisol 0.08 Dexamethasone 417 10/15/20 10/15/20 10/15/20 08:59 08:59 08:59 Creatinine Estimated GFR POC Glucose Cortisol 19.9 Transcortin 2.3 ACTH 23 Saliva Cortisol Dexamethasone 11/07/20 07:17 Creatinine Estimated GFR POC Glucose 146 H Cortisol Transcortin ACTH Saliva Cortisol Dexamethasone Laboratory Tests 06/26/19 08/18/19 12/19/19 17:54 10:30 14:43 Hgb Hct Sodium Potassium Creatinine Estimated Creat Cl ear 103.2 Estimated GFR Random Glucose Hemoglobin A1c 8.4 Hgb A1c Fingerstic k 7.0 Calcium AST ALT Alkaline Phosphata se Albumin Triglycerides Cholesterol LDL Cholesterol Di rect LDL Cholesterol, C alc HDL Cholesterol Vitamin B12 25-OH Vitamin D To andrade Free T4 TSH 3rd Generation Cortisol ACTH Ur Random Creatini ne Ur Random Microalb umin Microalb/Creat Rat io 12/30/19 12/30/19 12/30/19 08:15 08:26 08:26 Hgb Hct Sodium Potassium Creatinine Estimated Creat Cl ear Estimated GFR Random Glucose Hemoglobin A1c Hgb A1c Fingerstic k Calcium AST 18 D ALT 28 Alkaline Phosphata se 88 Albumin 4.1 Triglycerides 80 D Cholesterol 136 LDL Cholesterol Di rect LDL Cholesterol, C alc 82 HDL Cholesterol 38 Vitamin B12 25-OH Vitamin D To andrade 45.9 Free T4 1.10 TSH 3rd Generation 3.10 Cortisol 2.1 ACTH <5 L Ur Random Creatini ne 156.21 Ur Random Microalb umin 389.0 Microalb/Creat Rat io 249.0 12/30/19 12/30/19 05/20/20 08:26 08:26 05:47 Hgb 13.9 Hct 43.7 Sodium Potassium Creatinine Estimated Creat Cl ear Estimated GFR Random Glucose Hemoglobin A1c Hgb A1c Fingerstic k Calcium AST ALT Alkaline Phosphata se Albumin Triglycerides Cholesterol LDL Cholesterol Di rect 80 LDL Cholesterol, C alc HDL Cholesterol Vitamin B12 223 25-OH Vitamin D To andrade Free T4 TSH 3rd Generation Cortisol ACTH Ur Random Creatini ne Ur Random Microalb umin Microalb/Creat Rat io 06/07/20 13:06 Hgb Hct Sodium 138 Potassium 3.7 Creatinine 1.08 Estimated Creat Cl ear Estimated GFR 52 Random Glucose 134 H D Hemoglobin A1c Hgb A1c Fingerstic k Calcium 9.3 AST ALT Alkaline Phosphata se Albumin Triglycerides Cholesterol LDL Cholesterol Di rect LDL Cholesterol, C alc HDL Cholesterol Vitamin B12 25-OH Vitamin D To andrade Free T4 TSH 3rd Generation Cortisol ACTH Ur Random Creatini ne Ur Random Microalb umin Microalb/Creat Rat io Started atrovastatin by PCP who is following hyperlipidemia [facility] Medical History Anxiety Chronic right heart failure COPD (chronic obstructive pulmonary disease) DM type 2 (diabetes mellitus, type 2) (~09/2016) Dyslipidemia History of pulmonary embolism (~02/2021) Morbid obesity Obstructive sleep apnea on CPAP Personal history of nicotine dependence Poor balance Pulmonary hypertension Tachycardia Urge incontinence Surgical History History of cardiac cath History of carpal tunnel release (~2001) History of colonoscopy (~2015) History of endometrial ablation (~2003) History of esophagogastroduodenoscopy (EGD) (~2016) History of laparoscopic cholecystectomy (~2020) Family History Father Myocardial infarction Diabetes mellitus Mother Pancreatic cancer Maternal Grandfather Diabetes mellitus Maternal Aunt Pancreatic cancer Maternal Uncle AAA (abdominal aortic aneurysm) Daughter Substance use disorder Mental health disorder Social History Household Members: Family Household Members Other:: Granddaughter Housing: House Housing Other:: Granddaughter Are you a primary healthcare administrator to a significant other at home: No Do you presently have visiting nurse or other home services: No Alcohol intake: current Alcohol intake frequency: holidays/special occasions only Comment: patient rings appropriately Patient Tobacco Use Status: Current someday Tobacco user (stopped 1 week ago) Years Smoked: (onset 19yo - 1/2ppd x 40years - 20pyh - quit in 2019) e-Cigarette/Vaping Use: Never Used Second Hand Smoke Exposure: No Substance Use Type: Marijuana service: No Current occupational status: disabled Cognitive needs: No Hearing needs: No Vision needs: No Physical Exam Absence of Cushingoid features. Absence of acromegalic features. Neck exam reveals nl size thyroid about 15 gms. No thyroid nodules palpable. No carotid bruits present. Lungs CTA. Heart S1 S2, Reg R/R. No M/R/ G. Skin exam reveals absence of vitiligo or acanthosis nigricans. Abdominal exam reveals Soft NT/ND with NA BS. No organomegaly present. Neck Other: . Extrem Other: Visual exam of foot performed. No ulcerations or open lesions. No onchomycosis, no callouses.Pulses 2 + distally Sensation intact to monofilament exam. Vibratory sensation sensed is intact with 128 Hz tuning fork. There is 2+ edema present right knee ankles to the calves Assessment & Plan Assessment & Plan (1) DM type 2 (diabetes mellitus, type 2): Onset Date: ~09/2016 Comment: (IDDM2 - dx 09/2016, no retinopathy on 03/06/22 PVEye exam) Code(s): E11.9 - Type 2 diabetes mellitus without complications Plan: This is a 62-year-old white female with a history of type 2 diabetes being treated with metformin, Trulicity and basal insulin with good improved but not optimal glycemic control and known microvascular complications namely macro albuminuria. Plan is change the Trulicity to Ozempic 1 mg Qwkly . If patient does not tolerate it does not reach go with Ozempic will switch to Mounjaro . Once we obtain better control, we can an SGLT 2 inhibitor for renal protection. I will have the patient check a repeat midnight salivary cortisol and 24 hour urine for free cortisol and creatinine in light of the previous abnormal dexamethasone suppression test (2) Abnormal dexamethasone suppression test: Code(s): R94.7 - Abnormal results of other endocrine function studies Plan: Will recheck midnight salivary cortisol. Will also obtain 24 hour urine for cortisol and creatinine Orders: Orders Cortisol, Free 24Hr Urine Today R94.7 - Abnormal results of other endocrine function studies Creatinine, 24 Hr Group Today R94.7 - Abnormal results of other endocrine function studies Coding Level of Care Code Est Pt Level 4 (51821) Diagnoses DM type 2 (diabetes mellitus, type 2) E11.9 Abnormal dexamethasone suppression test R94.7
[2023-06-15 13:42] LABS: Glucose, Whole Blood 144 mg/dL (60-115)
== END 2023-06-15 14:10 | disposition home or self-care (01) ==
PROVIDERS: PCP Nurse Practitioner Family; Visit Provider Internal Medicine Endocrinology, Diabetes & Metabolism
DX: E11.9 Type 2 diabetes mellitus without complications (principal); R94.7 Abnormal results of other endocrine function studies
CPT/HCPCS: 99214

== ENCOUNTER → 2023-06-15 13:27 | Outpatient (BNVA) | payer OTHER, SELFPAY | PROVIDERS: PCP Nurse Practitioner Family; Visit Provider Internal Medicine Endocrinology, Diabetes & Metabolism | DX: E11.9 Type 2 diabetes mellitus without complications (principal); R94.7 Abnormal results of other endocrine function studies | CPT/HCPCS: 82947; 83036; 99212 ==

== ENCOUNTER 2023-06-24 13:24 | Outpatient (AMB) | payer OTHER, SELFPAY ==
--- NOTE | 2023-06-24 13:35 | MHC.PC.OV ---
Vital Signs 06/24/23 13:38 Height 5 ft 2 in Weight 236 lb BMI 43.2 BP 118/76 Blood Pressure Location Rt brachial Position Sitting Pulse 74 Pulse Source Pulse Oximeter Pulse Oximetry (%) 98 Oxygen Delivery Method Room Air Intake Visit Reasons: Physical exam Intake Note: Patient here for physical exam and would like to talk about lower back pain that has been present for awhile on and off. Allergies erythromycin base [From E-MYCIN] Allergy (Severe, Verified 06/24/23 13:39) GI PAIN-SEVERE carvedilol Allergy (Mild, Verified 06/24/23 13:39) upset stomach, sweats Tobacco use date assessed: 02/01/23 HPI Physical exam HPI Details Pt is here for a PE. Will order labs. Due for mammo, pt will call to schedule this. Cologuard is up to date. Pt does not have a parking supervisor, will refer. Pt is a diabetic, sees endo. [facility] Medical History Personal history of nicotine dependence History of pulmonary embolism (~02/2021) DM type 2 (diabetes mellitus, type 2) (~09/2016) Anxiety Poor balance COPD (chronic obstructive pulmonary disease) Obstructive sleep apnea on CPAP Urge incontinence Pulmonary hypertension Morbid obesity Dyslipidemia Chronic right heart failure Tachycardia Surgical History History of endometrial ablation (~2003) History of esophagogastroduodenoscopy (EGD) (~2016) History of laparoscopic cholecystectomy (~2020) History of colonoscopy (~2015) History of cardiac cath History of carpal tunnel release (~2001) Family History Father Myocardial infarction Diabetes mellitus Mother Pancreatic cancer Maternal Grandfather Diabetes mellitus Maternal Aunt Pancreatic cancer Maternal Uncle AAA (abdominal aortic aneurysm) Daughter Substance use disorder Mental health disorder Social History Household Members: Family Household Members Other:: Granddaughter Housing: House Housing Other:: Granddaughter Are you a primary manager of care to a significant other at home: No Do you presently have visiting nurse or other home services: No Alcohol intake: current Alcohol intake frequency: holidays/special occasions only Comment: patient rings appropriately Patient Tobacco Use Status: Current someday Tobacco user (stopped 1 week ago) Years Smoked: (onset 19yo - 1/2ppd x 40years - 20pyh - quit in 2020) e-Cigarette/Vaping Use: Never Used Second Hand Smoke Exposure: No Substance Use Type: Marijuana service: No Current occupational status: disabled Cognitive needs: No Hearing needs: No Vision needs: No Questionnaire Thrive Questionnaire Date Thrive assessed: 07/14/22 I am a: Patient What is your living situation today?: I have a place to live, but I am worried about losing it in the future Within the past 12 months, did the food you bought not last and you didn't have the money to get more?: Often true Within the past 12 months, did you worry whether your food would run out before you got money to buy more?: Never true Please select the resources that you would like help with: None AUDIT C Alcohol Use Questionnaire (AUDIT-C) 1. How often do you have a drink containing alcohol?: Never 2. How many drinks containing alcohol do you have on a typical day when you are drinking?: 1 or 2 3. How often do you have six or more drinks on one occasion?: Never Total Score: 0 PATRICIA-7 AMB Questionnaire PATRICIA-7 Date PATRICIA - 7 assessed: 07/14/22 Feeling nervous, anxious, or on edge: 2 = More than half the days Not being able to stop or control worryin = Not at all Worrying too much about different things: 1 = Several days Trouble relaxin = Not at all Being so restless that it is hard to sit still: 0 = Not at all Becoming easily annoyed or irritable: 0 = Not at all Feeling afraid as if something awful might happen: 0 = Not at all Total PATRICIA-7 score (0-4 normal; 5-9 mild; 10-14 moderate; 15-21 severe): 3 Source: Developed by Drs. Chalo Li, Graciela Byrd, Baldo Lofton and colleagues, with an educational lucero from [employer]. Review of Systems Const Denies chills and Denies fever(s) Eyes Denies blurry vision ENT Denies vertigo, Denies dizziness and Denies sore throat Card Denies chest pain at rest, Denies chest pain with activity, Denies diaphoresis, Denies dyspnea and Denies dyspnea on exertion Resp Denies cough, Denies dyspnea, Denies dyspnea on exertion and Denies wheezing GI Denies abdominal pain, Denies melena, Denies hematochezia, Denies constipation, Denies diarrhea and Denies loose stools Denies hematuria Musc Denies numbness and Denies tingling Skin/Breast Denies lesions Neuro Denies vertigo, Denies dizziness, Denies numbness and Denies tingling Psych Denies anxiety, Denies depression, Denies homicidal ideation, Denies suicidal ideation and Denies other (substance abuse) Aller/Immun Denies wheezing Physical exam (Primary Care) Vital Signs: Last Vital Signs Pulse 74 06/24/23 13:38 BP 118/76 06/24/23 13:38 Pulse Ox 98 06/24/23 13:38 Oxygen Delivery Method Room Air 06/24/23 13:38 BMI result Body Mass Index 43.2 Tobacco/Smoking Status: Tobacco use Status Tobacco use date assessed 02/01/23 06/24/23 13:36 Patient Tobacco Use Status Current someday Tobacco ( 06/24/23 13:36 stopped 1 week ago) e-Cigarette/Vaping Use Never Used 06/24/23 13:36 Thrive Assessment: Date of Thrive Assessment Date Thrive assessed 07/14/22 06/24/23 13:36 Const General: cooperative Nutritional Appearance: obese morbidly obese Orientation/consciousness: patient oriented x3 Limitations: ambulation with cane HENMT Head: Yes normal to inspection, Yes normocephalic and Yes atraumatic Ears: TM's normal bilaterally Eyes General: appearance normal, both eyes and all related structures Alignment and Position: alignment normal and position normal Neck Neck: Yes normal visual inspection and Yes no lymphadenopathy Thyroid: Thyroid normal Resp Other: lungs fairly clear Effort & Inspection: normal respiratory effort Cardio Rate: regular rate Rhythm: regular rhythm Heart sounds: S1 normal heart sound present, S2 normal heart sound present and no murmurs GI Palpation (GI): Soft to palpation and nontender Auscultation: normal bowel sounds Skin Rashes: no rashes Neuro General: patient oriented x3, moves all extremities, no focal motor deficits and deep tendon reflexes 2+ bilaterally Romberg Test: Negative Extrem Other: bilat feet: + sensation with use of monofilament, feet intact Psych Appearance: grossly normal Mental Status: mental status grossly normal Speech and movement: Normal speech and movement present Affect: normal affect Attitude: cooperative Thought process: Normal thought process present Thought content: Normal thought content present Insight: Good insight present (Psych) Judgement: Good judgement present (Psych) Immunizations pneumoc 20-german conj-dip cr(PF) 0.5 mL IM syringe Performing Provider: MARILYN Monge Performing Location: [facility] Administered by: VIRIDIANA Barone on 06/24/23 14:34 Dose Route Admin Location Dispensed Lot Number Expiration Date [employer] Manufacturing Technician 0.5 mL IM Left Deltoid 0.5 mL [id number] 08/05/24 6897-6748-08 [employer] VIS Given Date VIS Provided VIS Publication Date 06/24/23 Single Vaccine 21 Eligibility Eligibility Date Funding Source Not [facility] Eligible 06/24/23 Private Assessment and Plan Assessment & Plan (1) Physical exam: Code(s): Z00.00 - Encounter for general adult medical examination without abnormal findings Plan: Labs ordered (2) Vitamin D deficiency: Code(s): E55.9 - Vitamin D deficiency, unspecified Plan: Labs ordered (3) Cervical cancer screening: Code(s): Z12.4 - Encounter for screening for malignant neoplasm of cervix Plan: Referred to parking supervisor Plan The patient agreed to the use of a director medical science for this encounter. Scribed for MARILYN Pritchett by Nelia Phillips director medical science, on 06/24/2023 at 13:55 EST. Orders: Orders Comprehensive [place]. Panel Fast Today Z00.00 - Encounter for general adult medical examination without abnormal findings Lipid Panel Today Z00.00 - Encounter for general adult medical examination without abnormal findings Pneumococcal 20 Immunization Today Z23 - Encounter for immunization Complete Blood Count Auto Diff Today Z00.00 - Encounter for general adult medical examination without abnormal findings TSH reflex Free T4 Today Z00.00 - Encounter for general adult medical examination without abnormal findings UA CC w/rflx Micro + Cult Today Z00.00 - Encounter for general adult medical examination without abnormal findings Vitamin D 25-OH Total Today E55.9 - Vitamin D deficiency, unspecified Referrals 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
[2023-06-24 13:38] VITALS: BP 118/76; PULSE 74; O2SAT 98; BMI 43.2
== END 2023-06-24 14:19 | disposition home or self-care (01) ==
PROVIDERS: PCP Nurse Practitioner Family; Visit Provider Nurse Practitioner Family
DX: Z00.00 Encounter for general adult medical examination without abnormal findings (principal); E55.9 Vitamin D deficiency, unspecified; Z23 Encounter for immunization
CPT/HCPCS: 90471; 90677; 99396

== ENCOUNTER 2023-08-03 12:20 | Outpatient (AMB) | payer OTHER, SELFPAY ==
--- NOTE | 2023-08-03 12:31 | A.OFFVIS_ITS ---
Intake Vital Signs 08/03/23 12:34 Height 5 ft 2 in Weight 231 lb 7.766 oz BMI 42.3 BP 130/86 Blood Pressure Location Lt brachial Position Sitting Pulse 98 Intake Visit Reasons: 6 mth f/up records/ [facility]/ [facility] Intake Note: 6 month follow up [employer] Consultant Required: No Accompanied by: Self / Same As Patient Allergies erythromycin base [From E-MYCIN] Allergy (Severe, Verified 08/03/23 12:35) GI PAIN-SEVERE carvedilol Allergy (Mild, Verified 08/03/23 12:35) upset stomach, sweats Medication List - Last Reconciled 08/03/23 by Darryl Cruz MD albuterol sulfate 90 mcg/actuation (Ventolin HFA) 2 puffs inhalation Q4H PRN 30 days allopurinol 400 mg (4 x 100 mg) PO DAILY apixaban (Eliquis) 5 mg PO BID atorvastatin 10 mg PO BEDTIME buspirone 15 mg PO BID 90 days cholecalciferol (vitamin D3) 125 mcg PO DAILY colchicine 0.6 mg PO DAILY flash glucose scanning reader (UpdaterStyle Ines 2 [place]) As directed flash glucose sensor (FreeStyle Ines 2 Sensor kit) DIRECTED CHANGE EVERY 14 DAYS gabapentin 300 mg PO BID 30 days hydroxyzine HCl 50 mg PO BEDTIME PRN 30 days insulin glargine U-300 conc (Toujeo SoloStar U-300 Insulin) 15 units (0.05 mL) subcut BEDTIME ketoconazole 2% 1 appl topical BID PRN metformin 1,000 mg PO BID montelukast 10 mg PO BEDTIME omeprazole 20 mg PO DAILY 90 days pen needle, diabetic (BD Janay 2nd Gen Pen Needle) As directed 1X DAILY semaglutide (Ozempic) 0.25 mg (0.368 mL) subcut QWEEK sildenafil (pulm.hypertension) 40 mg PO TID spironolactone 25 mg PO DAILY torsemide 60 mg PO DAILY treprostinil-neb accessories 1.74 mg/2.9 mL (0.6 mg/mL) (Tyvaso Refill Kit) inhalation HPI HPI Comments History of Present Illness Details Laura returns for follow-up. She carries a diagnosis of pulmonary hypertension and right heart failure. She follows up with the pulmonary hypertension clinic at [facility]. She remains on sildenafil through them. Also on diuretics. Overall, she states she is generally doing okay. Shortness of breath is at baseline. No new concerns otherwise. [facility] Medical History Personal history of nicotine dependence History of pulmonary embolism (~02/2021) DM type 2 (diabetes mellitus, type 2) (~09/2016) Anxiety Poor balance COPD (chronic obstructive pulmonary disease) Obstructive sleep apnea on CPAP Urge incontinence Pulmonary hypertension Morbid obesity Dyslipidemia Chronic right heart failure Tachycardia Surgical History History of endometrial ablation (~2003) History of esophagogastroduodenoscopy (EGD) (~2016) History of laparoscopic cholecystectomy (~2020) History of colonoscopy (~2015) History of cardiac cath History of carpal tunnel release (~2001) Family History Father Myocardial infarction Diabetes mellitus Mother Pancreatic cancer Maternal Grandfather Diabetes mellitus Maternal Aunt Pancreatic cancer Maternal Uncle AAA (abdominal aortic aneurysm) Daughter Substance use disorder Mental health disorder Social History Household Members: Family Household Members Other:: Granddaughter Housing: House Housing Other:: Granddaughter Are you a primary care professional to a significant other at home: No Do you presently have visiting nurse or other home services: No Alcohol intake: current Alcohol intake frequency: holidays/special occasions only Comment: patient rings appropriately Patient Tobacco Use Status: Current someday Tobacco user (stopped 1 week ago) Years Smoked: (onset 19yo - 1/2ppd x 40years - 20pyh - quit in 2019) e-Cigarette/Vaping Use: Never Used Second Hand Smoke Exposure: No Substance Use Type: Marijuana service: No Current occupational status: disabled Cognitive needs: No Hearing needs: No Vision needs: No Review of Systems Const Denies weakness ENT Denies dizziness Card Denies chest pain, Denies chest pain with activity, Denies syncope, Denies rapid heart rate, Denies pedal edema, Denies edema, Denies leg edema, Denies lightheadedness, Denies palpitations, Denies dyspnea, Denies dyspnea on exertion and Denies orthopnea Resp Denies cough, Denies dyspnea and Denies dyspnea on exertion GI Denies hematochezia and Denies change in stool character Musc Denies abnormal gait, Denies muscle cramps, Denies muscle weakness, Denies numbness, Denies radiating pain into limb and Denies tingling Neuro Denies abnormal gait, Denies dizziness, Denies syncope, Denies numbness, Denies tingling and Denies weakness Endo Denies palpitations Physical Exam Vital Signs: Last Vital Signs Pulse 98 08/03/23 12:34 BP 130/86 08/03/23 12:34 BMI result Body Mass Index 42.3 Const General: comfortable and no acute distress Orientation/consciousness: patient oriented x3 HEENT Other: Unremarkable Head: Yes normal to inspection Neck Neck: Yes normal visual inspection Chest Chest palpation & inspection: normal inspection of the chest Resp Auscultation: clear to auscultation bilaterally Cardio Palpation: normal PMI Heart sounds: S1 normal heart sound present, S2 normal heart sound present, no gallops, no murmurs and no rubs GI Palpation (GI): Soft to palpation Back/Spine/Pelvis Other: unremarkable Skin General skin exam: no rashes or lesions noted Neuro General: patient oriented x3 Extrem General: Yes normal to inspection Psych Mental Status: mental status grossly normal Assessment & Plan Assessment & Plan (1) Chronic right heart failure: Code(s): I50.812 - Chronic right heart failure Plan: (2) Pulmonary hypertension: Code(s): I27.20 - Pulmonary hypertension, unspecified (3) JACKSON (obstructive sleep apnea): Code(s): G47.33 - Obstructive sleep apnea (adult) (pediatric) (4) Pulmonary embolism: Onset Date: ~02/2021 Comment: (Subsegmental PE in lateral aspect of posterior segment of RUL - dx 02/2021) Code(s): I26.99 - Other pulmonary embolism without acute cor pulmonale Qualifiers: Acute cor pulmonale presence: without acute cor pulmonale Chronicity: chronic Pulmonary embolism type: other Qualified Code(s): I27.82 - Chronic pulmonary embolism (5) Morbid obesity: Code(s): E66.01 - Morbid (severe) obesity due to excess calories Plan Per most recent pulmonary hypertension documentation, pulmonary artery pressure is still in the 70s and PVR was around 7. Echocardiogram from [facility]-LVEF 70%. Right ventricle severely dilated, hypokinetic with pulmonary hypertension over 80 mm Hg. RV pressure/volume overload. Small pericardial effusion. Overall, severe pulmonary hypertension, probably multifactorial from some combination obesity, JACKSON, pulmonary hypertension. May remain on the current regimen of diuretics as well as sildenafil. Continue CPAP. Weight loss as much able. Follow-up in the Pulmonary hypertension Clinic, who are mainly managing her medical regimen. Echocardiogram also primarily ordered through them. She can return here in 1 year. In the interim, she will call us with concerns. Coding Level of Care Code Est Pt Level 4 (60092) Diagnoses Chronic right heart failure I50.812 Pulmonary hypertension I27.20 JACKSON (obstructive sleep apnea) G47.33 Other chronic pulmonary embolism without acute cor pulmonale I27.82 Acute cor pulmonale presence: without acute cor pulmonale Chronicity: chronic Pulmonary embolism type: other Morbid obesity E66.01
[2023-08-03 12:34] VITALS: BP 130/86; PULSE 98; BMI 42.3
== END 2023-08-03 12:48 | disposition home or self-care (01) ==
PROVIDERS: PCP Nurse Practitioner Family; Visit Provider Internal Medicine
DX: I50.812 Chronic right heart failure (principal); I27.20 Pulmonary hypertension, unspecified; G47.33 Obstructive sleep apnea (adult) (pediatric); I27.82 Chronic pulmonary embolism; E66.01 Morbid (severe) obesity due to excess calories
CPT/HCPCS: 99214

== ENCOUNTER → 2023-08-03 12:20 | Outpatient (BNVA) | payer OTHER, SELFPAY | PROVIDERS: PCP Nurse Practitioner Family; Visit Provider Internal Medicine | DX: I50.812 Chronic right heart failure (principal); I27.20 Pulmonary hypertension, unspecified; I27.82 Chronic pulmonary embolism; G47.33 Obstructive sleep apnea (adult) (pediatric); E66.01 Morbid (severe) obesity due to excess calories; Z68.41 Body mass index [BMI] 40.0-44.9, adult; Z79.899 Other long term (current) drug therapy | CPT/HCPCS: 99212 ==

== ENCOUNTER 2023-08-19 12:24 | Outpatient (REF) | payer OTHER, SELFPAY ==
[2023-08-19 15:57] LABS: MANUAL DIFF FLAG NO
[2023-08-19 16:07] LABS: Appearance Urine Cloudy; Color Urine Yellow; Glucose Urine UA Negative (Negative); Leukocyte Esterase Urine Negative (Negative); Nitrite Urine Negative (Negative); UMIC TRIGGER UACC YES; Urine Blood Negative (Negative); Urine Ketones Negative (Negative); Urine Protein 100 (2+) mg/dL (Neg-Trace)
[2023-08-19 16:07] LABS: Basophils Percent Auto 0.6 % (0-2); Eosinophils Absolute Auto 0.1 X10*3/uL (0.0-0.4); Eosinophils Percent Auto 1.7 % (0-4); Hematocrit 51.1 % (37.0-47.0); Hemoglobin 16.6 g/dl (12.0-16.0); Imm Gran Abs Auto 0.02 X10*3/uL (0.00-0.03); Imm Gran Pct Auto 0.3 % (0.0-0.4); Lymphocytes Absolute Auto 2.2 X10*3/uL (1.2-4.9); Lymphocytes Percent Auto 32.8 % (20-40); Mean Corpuscular HGB Conc 32.5 g/dl (31.0-35.0); Mean Corpuscular Hemoglobin 28.8 pg (27.0-33.0); Mean Corpuscular Volume 88.7 fL (80.0-98.0); Mean Platelet Volume 10.8 fL (9.4-12.3); Monocytes Absolute Auto 0.4 X10*3/uL (0.1-1.2); Monocytes Percent Auto 6.1 % (2-11); Neutrophils Absolute Auto 3.9 x10*3/uL (2.0-8.3); Neutrophils Percent Auto 58.5 % (45-73); Platelet Count 181 X10*3/uL (160-400); Red Blood Count 5.76 X10*6/uL (4.20-5.50); Red Cell Distribution Width 15.1 % (11.0-16.0); White Blood Count 6.6 X10*3/uL (4.8-10.8)
[2023-08-19 16:10] LABS: Bacteria Urine 1+ (None Seen); Hyaline Casts Urine 0-2 /LPF (0-2); RBC Urine 0-2 /HPF (0-2); WBC Urine 0-5 /HPF (0-5)
[2023-08-19 16:19] LABS: Uric Acid 6.4 mg/dL (2.4-5.7)
[2023-08-19 16:31] LABS: Alanine Aminotransferase 15 U/L (0-31); Albumin Level 4.1 g/dL (3.5-5.0); Alkaline Phosphatase 135 U/L (39-117); Anion Gap 13 (12-20); Aspartate Amino Transferase 16 U/L (5-31); Bilirubin Total 1.2 mg/dL (0.0-1.0); Blood Urea Nitrogen 21 mg/dL (9-16); Calcium 9.3 mg/dL (8.4-10.2); Carbon Dioxide 28 mmol/L (22-29); Chloride 106 mmol/L (96-108); Cholesterol 183 mg/dL (<200); Estimated Glomerular Filt Rate > 60; Glucose Fasting 138 mg/dL (60-99); HDL Cholesterol 47 mg/dL (>40); LDL Cholesterol Calculated 111 mg/dL (<100); Potassium 4.7 mmol/L (3.3-5.1); Sodium 142 mmol/L (135-145); Triglycerides 125 mg/dL (<150)
[2023-08-19 16:40] LABS: TSH reflex Free T4 2.81 uIU/mL (0.32-4.0); Vitamin D 25-OH Total 47.3 ng/mL (>30)
== END 2023-08-19 12:25 | disposition home or self-care (01) ==
LOC: HO.HMGCLDS 12:24
PROVIDERS: PCP Nurse Practitioner Family; Referring Provider Internal Medicine Rheumatology; Visit Provider Nurse Practitioner Family
DX: Z00.00 Encounter for general adult medical examination without abnormal findings (principal); M1A.09X0 Idiopathic chronic gout, multiple sites, without tophus (tophi); E55.9 Vitamin D deficiency, unspecified
CPT/HCPCS: 36415; 80053; 80061; 81001; 82306; 84443; 84550; 85025; 99212

== ENCOUNTER 2023-08-19 13:28 | Outpatient (AMB) | payer OTHER, SELFPAY ==
--- NOTE | 2023-08-19 13:45 | MHC.OFFVIS ---
Intake Vital Signs 08/19/23 13:46 Height 5 ft 2 in Weight 244 lb 7.882 oz BMI 44.7 BP 106/70 Blood Pressure Location Rt radial Position Sitting Pulse 86 Pulse Source Pulse Oximeter Temp 97.6 F Temp Source Skin Pulse Oximetry (%) 93 Oxygen Delivery Method Room Air Intake Visit Reasons: Gout Intake Note: Patient last seen 03/04/23, presents today for follow up and test results. 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 Brown, 63yoF returns for follow-up of her gout. She remains on 400 mg daily allopurinol increased from 300mg at 03/04/23 visit. There have been occasional episodes of pain in the 1st MTPs bilaterally but she denies any excessive gout swelling to the MTPs . She does get prednisone on the occasional flare of for her lung disease and PMH. When she flares, she would be started on antibiotics and prednisone. She denies any problems with the allopurinol in terms of side effects. Pulmonary visit 08/03/23: Per most recent pulmonary hypertension documentation, pulmonary artery pressure is still in the 70s and PVR was around 7. Echocardiogram from [facility]-LVEF 70%. Right ventricle severely dilated, hypokinetic with pulmonary hypertension over 80 mm Hg. RV pressure/volume overload. Small pericardial effusion. Overall, severe pulmonary hypertension, probably multifactorial from some combination obesity, JACKSON, pulmonary hypertension. May remain on the current regimen of diuretics as well as sildenafil. Continue CPAP. Weight loss as much able. Follow-up in the Pulmonary hypertension Clinic, who are mainly managing her medical regimen. Echocardiogram also primarily ordered through them. She can return here in 1 year. In the interim, she will call us with concerns. [facility] Medical History Personal history of nicotine dependence History of pulmonary embolism (~02/2021) DM type 2 (diabetes mellitus, type 2) (~09/2016) Anxiety Poor balance COPD (chronic obstructive pulmonary disease) Obstructive sleep apnea on CPAP Urge incontinence Pulmonary hypertension Morbid obesity Dyslipidemia Chronic right heart failure Tachycardia Surgical History History of endometrial ablation (~2003) History of esophagogastroduodenoscopy (EGD) (~2016) History of laparoscopic cholecystectomy (~2020) History of colonoscopy (~2015) History of cardiac cath History of carpal tunnel release (~2001) Family History Father Myocardial infarction Diabetes mellitus Mother Pancreatic cancer Maternal Grandfather Diabetes mellitus Maternal Aunt Pancreatic cancer Maternal Uncle AAA (abdominal aortic aneurysm) Daughter Substance use disorder Mental health disorder Social History Household Members: Family Household Members Other:: Granddaughter Housing: House Housing Other:: Granddaughter Are you a primary regular senior care provider to a significant other at home: No Do you presently have visiting nurse or other home services: No Alcohol intake: current Alcohol intake frequency: holidays/special occasions only Comment: patient rings appropriately Patient Tobacco Use Status: Current someday Tobacco user (stopped 1 week ago) Years Smoked: (onset 19yo - 1/2ppd x 40years - 20pyh - quit in 2019) e-Cigarette/Vaping Use: Never Used Second Hand Smoke Exposure: No Substance Use Type: Marijuana service: No Current occupational status: disabled Cognitive needs: No Hearing needs: No Vision needs: No Review of Systems Const All systems reviewed & are unremarkable except as noted in HPI and below Physical Exam Vital Signs: Last Vital Signs Temp 97.6 F 08/19/23 13:46 Pulse 86 08/19/23 13:46 BP 106/70 08/19/23 13:46 Pulse Ox 93 08/19/23 13:46 Oxygen Delivery Method Room Air 08/19/23 13:46 BMI result Body Mass Index 44.7 APPEARANCE: Patient in no acute distress EYES no redness, pupils equal and reactive to light, eyelids normal EXTREMITIES: Some venous stasis changes with dusky discoloration and dryness. This is in the anterior pretibial region bilaterally, more prominent on the left. The skin is not tender and there are no breaks in the skin.. JOINT EXAM:?? Cervical Spine:.? Mild discomfort with extremes of normal range of motion; no tenderness. Thoracic Spine:.? No scoliosis.? No tenderness on palpation. Lumbar Spine:.? Alignment normal.? Full range of motion with mild discomfort.? No tenderness. Chest Wall:.? No tenderness, swelling, increased warmth or erythema. Hands:? Right:? No pain with range of motion of the fingers or thumb.? There is mild tenderness at base of the thumb.? There is nontender bony enlargement at all the PIP and the 2nd and 3rd DIP joints.? There is no thenar atrophy or sensory loss.? Left:? Mild tenderness at the base of the thumb.? There is no flexor tendon triggering or tenderness. There is slight bony enlargement at the thumb IP and 2nd through 4th PIP is without tenderness.? There is slight tenderness, or marked more bony enlargement in flexion deformity at the 5th PIP.? There is some bony enlargement at the 2nd PIP without tenderness.? There is no thenar atrophy or sensory loss.? Wrists:.? Right:? Slight soft tissue, fluctuant swelling over the dorsum of the hand.? This is not the tender, red or warm.? The range of motion seems intact.? This could be a ganglion cyst or soft tissue deposit from gout.? Left:? Normal pain-free range of motion without tenderness, swelling, increased warmth or erythema. Elbows:.? Right:? There is normal pain-free range of motion.? There is no tenderness over the joint space. There is some slight thickening without tenderness over the bursa region. There is no drainage evident. Left:? There is some thickening without tenderness of the olecranon bursa.? It is not tender.? The joint has normal pain-free range of motion without tenderness, swelling, increased warmth or erythema. Shoulders:.?? Full range of motion with mild discomfort at the extremes of motion with some minimal anterior tenderness but no adenopathy, weakness, swelling, increased warmth or erythema. Hips:.? Right:? Mild to moderate lumbar pain on the left with extremes of normal internal or external rotation.? Left:? Full range of motion without pain. Hip bursa:.? No tenderness. Knees:.? Left: Mild patellofemoral crepitus and some slight medial patellar tenderness without redness or swelling. No ligamentous instability. Right:? Normal pain-free range of motion with mild patellofemoral crepitus but no effusion, out tenderness, swelling, increased warmth or erythema.? Ankles:.? Normal pain-free range of motion without tenderness, swelling, increased warmth or erythema. Feet:.? Right:? Mild to moderate bony enlargement at the 1st MTP joint with no tenderness.? Elsewhere in the foot there is no tenderness or swelling.? Left:? There is slightly more bony enlargement at the 1st MTP but no redness or warmth.? There is no tenderness or swelling elsewhere. Results Reviewed Results Reviewed: Laboratory Tests 01/12/23 01/12/23 01/12/23 09:37 09:37 09:37 WBC 8.4 Hgb 16.5 H Creatinine 1.06 Uric Acid 7.8 H Laboratory Tests 08/19/23 12:38 WBC 6.6 RBC 5.76 H Hgb 16.6 H Hct 51.1 H BUN 21 H Creatinine 0.94 Estimated GFR > 60 Uric Acid 6.4 H 25-OH Vitamin D Total 47.3 Assessment & Plan Assessment & Plan (1) Gout: Comment: allopurinol started 03/2022 Code(s): M10.9 - Gout, unspecified Qualifiers: Gout site: multiple sites Gout etiology: idiopathic Chronicity: chronic Presence of tophus: without tophus Qualified Code(s): M1A.09X0 - Idiopathic chronic gout, multiple sites, without tophus (tophi) (2) DM type 2 (diabetes mellitus, type 2): Onset Date: ~09/2016 Comment: (IDDM2 - dx 09/2016, no retinopathy on 03/06/22 PVEye exam) Code(s): E11.9 - Type 2 diabetes mellitus without complications Qualifiers: Diabetes mellitus senior living insulin use: without ad terminal makeup operator use Laterality: left (3) Pulmonary hypertension: Code(s): I27.20 - Pulmonary hypertension, unspecified Plan #Gout: Ms. Sanchez continues with gout which appears better managed since last visit. Her uric acid level is not at target but has markedly improved from 7.8 to 6.4 with the increase of allopurinol to 400 mg daily. We will continue at this dose and recheck the uric acid again in about 1 week before next visit. She can use prednisone or colchicine to address flares. Patient knows to call the office if needed. #IDDM/PH: With the history of IDDM and pulmonary Hypertension, we will have to be careful with the use of prednisone which can elevate her blood pressure and blood sugars. We will have her follow-up with us in about 6 months. Orders: Orders C Reactive Protein 6 Months M10.9 - Gout, unspecified Erythrocyte Sedimentation Rate 6 Months M10.9 - Gout, unspecified Complete Blood Count Auto Diff 6 Months M10.9 - Gout, unspecified, Z79.899 - Other ad terminal makeup operator (current) drug therapy Comprehensive Met. Panel 6 Months M10.9 - Gout, unspecified Uric Acid 6 Months M10.9 - Gout, unspecified Coding Level of Care Code Est Pt Level 3 (25190) Diagnoses Idiopathic chronic gout of multiple sites without tophus M1A.09X0 Gout site: multiple sites Gout etiology: idiopathic Chronicity: chronic Presence of tophus: without tophus DM type 2 (diabetes mellitus, type 2) E11.9 Diabetes mellitus senior living insulin use: without senior living use Laterality: left Pulmonary hypertension I27.20
[2023-08-19 13:46] VITALS: BP 106/70; PULSE 86; TEMP 36.4; O2SAT 93; BMI 44.7
== END 2023-08-19 14:17 | disposition home or self-care (01) ==
PROVIDERS: PCP Nurse Practitioner Family; Visit Provider Nurse Practitioner Family
DX: M1A.09X0 Idiopathic chronic gout, multiple sites, without tophus (tophi) (principal); E11.9 Type 2 diabetes mellitus without complications; I27.20 Pulmonary hypertension, unspecified
CPT/HCPCS: 99213

== ENCOUNTER 2023-12-28 10:54 | Outpatient (AMB) | payer OTHER, SELFPAY ==
--- NOTE | 2023-12-28 10:57 | A.OFFVIS_ITS ---
Vital Signs 12/28/23 11:04 Height 5 ft 2 in Weight 235 lb 0.204 oz BMI 43.0 BP 112/68 Pulse 84 Intake Visit Reasons: DM-lvm Intake Note: Follow diabetes visit Last diabetic eye exam was on [08/2023]. Last Podiatry visit was on [Does not see a podiarist]. Random Glucose 102 mg/dL, HgA1C 7.3%. Bandsaw Operator Required: No Accompanied by: Self / Same As Patient Allergies erythromycin base [From E-MYCIN] Allergy (Severe, Verified 12/28/23 11:10) GI PAIN-SEVERE carvedilol Allergy (Mild, Verified 12/28/23 11:10) upset stomach, sweats HPI Comments Details: 63-year-old female here today for follow-up for diabetes management. She was last seen by Dr. Nuno 06/26. She has DM type 2 diagnosed , September 2016. She reports that she did not tolerate jardiance in the past due hypoglycemia in the 50s. She also was feeling very weak. She is Currently on Toujeo 15 units daily, Ozempic 0.25 mg weekly,. Metformin 1000 mg BID. She would like an increase in Ozempic to 0.5 mg She did not bring in her Ines today but reports her averages have been 120-130 with some spikes after meals. Hypoglycemia : None Complications: no retinopathy, + nephropathy, no neuropathy, no CVA, CAD, PVD. Last ophthalmology evaluation :04/26 no retinopathy She had a dexamethasone suppression test that was abnormal in the past. She has physical findings suggestive of [place] like plethora, visible vessels, supraclavicular fat pad and dorsocervical fat pad. Midnight salivary cortisol level was normal. She was supposed to do another midnight salivary cortisol and have additional lab testing but did not get done. This was again discussed with the patient today Positive nocturia 2 times per night, denies numbness, tingling, polydipsia. Patient has significant weight gain in the past but now she is losing weight after she is on diuretics. [facility] Medical History Personal history of nicotine dependence History of pulmonary embolism (~02/2021) DM type 2 (diabetes mellitus, type 2) (~09/2016) Anxiety Poor balance COPD (chronic obstructive pulmonary disease) Obstructive sleep apnea on CPAP Urge incontinence Pulmonary hypertension Morbid obesity Dyslipidemia Chronic right heart failure Tachycardia Surgical History History of endometrial ablation (~2003) History of esophagogastroduodenoscopy (EGD) (~2016) History of laparoscopic cholecystectomy (~2020) History of colonoscopy (~2015) History of cardiac cath History of carpal tunnel release (~2001) Family History Father Myocardial infarction Diabetes mellitus Mother Pancreatic cancer Maternal Grandfather Diabetes mellitus Maternal Aunt Pancreatic cancer Maternal Uncle AAA (abdominal aortic aneurysm) Daughter Substance use disorder Mental health disorder Social History Household Members: Family Household Members Other:: Granddaughter Housing: House Housing Other:: Granddaughter Are you a primary care connector to a significant other at home: No Do you presently have visiting nurse or other home services: No Alcohol intake: current Alcohol intake frequency: holidays/special occasions only Comment: patient rings appropriately Patient Tobacco Use Status: Current someday Tobacco user Years Smoked: (onset 19yo - 1/2ppd x 40years - 20pyh - quit in 2019) e-Cigarette/Vaping Use: Never Used Second Hand Smoke Exposure: No Substance Use Type: Marijuana service: No Current occupational status: disabled Cognitive needs: No Hearing needs: No Vision needs: No Physical Exam Vital Signs: Last Vital Signs Pulse 84 12/28/23 11:04 BP 112/68 12/28/23 11:04 BMI result Body Mass Index 43.0 Resp Effort & Inspection: normal respiratory effort Auscultation: clear to auscultation bilaterally Cardio Jugular venous distension: no JVD Rate: regular rate Rhythm: regular rhythm Heart sounds: S1 normal heart sound present and S2 normal heart sound present Extrem Other: Visual exam of foot performed. No ulcerations or open lesions. No onchomycosis, small callous great toe. Sensation intact to monofilament exam. Vibratory sensation is normal with 128 Hz tuning fork. Results AMB Hemoglobin A1c AMB Hemoglobin A1c 7.3 % Last Edit by ELI Vigil on 12/28/23 11:22 Results Reviewed Results Reviewed: Laboratory Last Values Glucose (Clinic) 102 mg/dL (60-115) 12/28/23 11:12 Hgb A1c (Clinic) 7.3 % (4.0-6.0) H 12/28/23 11:16 CT ABDOMEN WITHOUT AND WITH CONTRAST LIVER, GALLBLADDER, AND BILIARY TREE: The liver is slightly low in attenuation suggestive of mild fatty infiltration. There are 2 small low-attenuation liver lesions measuring 7 mm high in the junction of the medial segment of the left lobe and anterior segment of the right lobe axial image 20 series 6 and in the peripheral anterior segment of the right lobe axial image 37 series 6 that are stable from 2016 and therefore probably benign. The gallbladder has been removed. There is no biliary duct dilatation. PANCREAS: Normal SPLEEN: Normal ADRENAL GLANDS AND KIDNEYS: The adrenal glands are normal. No nodule is seen. There is a small 1 cm low-attenuation lesion in the lower pole of the left kidney that is stable from previous exam from 2016 and is suggestive of a cyst.. The kidneys are otherwise unremarkable. Assessment & Plan Assessment & Plan (1) DM type 2 (diabetes mellitus, type 2): Onset Date: ~09/2016 Comment: (IDDM2 - dx 09/2016, no retinopathy on 03/06/22 PVEye exam) Code(s): E11.9 - Type 2 diabetes mellitus without complications Category: Medical Qualifiers: Diabetes mellitus extermination inspector insulin use: without half-way use Laterality: left Plan: A1C 7.3% stable diabetes Would like to see A1C down to 7%. We will increase Ozempic in hopes to lower A1c and promote weight loss. Medications: Toujeo 15 units daily Ozempic 0.5 mg weekly Metformin 1000 mg BID She was counseled to see a can sterilizer which she declined. She has currently treating the 1 small callus with a otc file. The patient was counseled to wear closed toe shoes, never walk barefooted and to inspect the feet daily. For any signs of infection or open wound patient should notify PCP. She had an abnormal salivary cortisol test in the past. She was counseled to have a repeat in addition to urine tests. She has had difficulty getting these done but was encouraged to do so to rule out [place]'s. Orders: Orders AMB Hemoglobin A1c 12/28/23 E11.9 - Type 2 diabetes mellitus without complications Medications: New semaglutide (Ozempic) 0.5 mg (0.736 mL) subcut QWEEK 4 weeks 2.944 mL 0RF Discontinued semaglutide (Ozempic) for 4 weeks Discontinued Reason: No Longer Medically Relevant 0.25 mg (0.368 mL) subcut QWEEK 3 mL 4RF Coding Level of Care Code Est Pt Level 4 (83481) Diagnoses DM type 2 (diabetes mellitus, type 2) E11.9 Diabetes mellitus half-way insulin use: without half-way use Laterality: left Time Spent (min) 30 Comment I spent 30 minutes reviewing labs and diagnostic reports, reviewing previous provider note
[2023-12-28 11:04] VITALS: BP 112/68; PULSE 84; BMI 43.0
[2023-12-28 11:17] LABS: Glucose, Whole Blood 102 mg/dL (60-115)
== END 2023-12-28 11:43 | disposition home or self-care (01) ==
PROVIDERS: PCP Nurse Practitioner Family; Visit Provider Nurse Practitioner Adult Health
DX: E11.9 Type 2 diabetes mellitus without complications (principal)
CPT/HCPCS: 99214

== ENCOUNTER → 2023-12-28 10:54 | Outpatient (BNVA) | payer OTHER, SELFPAY | PROVIDERS: PCP Nurse Practitioner Family; Visit Provider Nurse Practitioner Adult Health | DX: E11.9 Type 2 diabetes mellitus without complications (principal); Z79.4 Long term (current) use of insulin | CPT/HCPCS: 82947; 83036; 99212 ==

== ENCOUNTER 2024-03-22 10:15 | Outpatient (AMB) | payer OTHER, SELFPAY ==
[2024-03-22 10:16] VITALS: BP 118/78; PULSE 80; O2SAT 96; BMI 43.5
--- NOTE | 2024-03-22 10:16 | MHC.PC.OV ---
Vital Signs 03/22/24 10:16 Height 5 ft 2 in Weight 238 lb BMI 43.5 BP 118/78 Blood Pressure Location Rt brachial Position Sitting Pulse 80 Pulse Source Pulse Oximeter Pulse Oximetry (%) 96 Intake Visit Reasons: 5 mon f/u - A1c due Intake Note: pt is here for 5 mon f.u, patient is seeing endo next week and will have a1c done with them. Senior Center Manager Required: No Accompanied by: Self / Same As Patient Allergies erythromycin base [From E-MYCIN] Allergy (Severe, Verified 03/22/24 10:16) GI PAIN-SEVERE carvedilol Allergy (Mild, Verified 03/22/24 10:16) upset stomach, sweats Tobacco use date assessed: 03/22/24 Dental Screening Dental Screen Date: 03/22/24 Did you have a dental visit in the last 12 months?: Yes Did you have a dental problem in the last 6 months where you did not have access to dental care?: No Was dental information given to patient?: Patient has dentist HPI 5 mon f/u - A1c due HPI Details HTN: Blood pressure is stable, managed with spironolactone 25mg and torsemide 60mg. Dyslipidemia: Pt is taking atorvastatin 10mg. Will increase this to 20mg. Will order labs. Denies chest pain, shortness of breath, headache, dizziness, and blurred vision. Pt is a diabetic, sees endo. [facility] Medical History (Updated 03/20/24 @ 12:06 by Ольга Villanueva PA-C) Chronic right heart failure History of pulmonary embolism (~02/2021) Pulmonary hypertension COPD (chronic obstructive pulmonary disease) Obstructive sleep apnea on CPAP Personal history of nicotine dependence DM type 2 (diabetes mellitus, type 2) (~09/2016) Dyslipidemia Anxiety Poor balance Urge incontinence Morbid obesity Tachycardia Surgical History History of endometrial ablation (~2003) History of esophagogastroduodenoscopy (EGD) (~2016) History of laparoscopic cholecystectomy (~2020) History of colonoscopy (~2015) History of cardiac cath History of carpal tunnel release (~2001) Family History Father Myocardial infarction Diabetes mellitus Mother Pancreatic cancer Maternal Grandfather Diabetes mellitus Maternal Aunt Pancreatic cancer Maternal Uncle AAA (abdominal aortic aneurysm) Daughter Substance use disorder Mental health disorder Social History Household Members: Family Household Members Other:: Granddaughter Housing: House Housing Other:: Granddaughter Are you a primary child care director to a significant other at home: No Do you presently have visiting nurse or other home services: No Alcohol intake: current Alcohol intake frequency: holidays/special occasions only Comment: patient rings appropriately Patient Tobacco Use Status: Current someday Tobacco user Years Smoked: (onset 19yo - 1/2ppd x 40years - 20pyh - quit in 2020) e-Cigarette/Vaping Use: Never Used Second Hand Smoke Exposure: No Substance Use Type: Marijuana service: No Current occupational status: disabled Cognitive needs: No Hearing needs: No Vision needs: No Questionnaire PHQ-9 Over the last 2 weeks, how often have you been bothered by any of the following problems? 1. Little interest or pleasure in doing things: not at all 2. Feeling down, depressed, or hopeless: not at all 3. Trouble falling or staying asleep, or sleeping too much: not at all 4. Feeling tired or having little energy: not at all 5. Poor appetite or overeating: not at all 6. Feeling bad about yourself - or that you are a failure or have let yourself or your family down: not at all 7. Trouble concentrating on things, such as reading the newspaper or watching television: not at all 8. Moving or speaking so slowly that other people could have noticed. Or the opposite - being so fidgety or restless that you have been moving around a lot more than usual: not at all 9. Thoughts that you would be better off or of hurting yourself in some way: not at all Total score: 0 Depression Screening Interpretation: Negative Depression Screening Done: Yes 91041 - PHQ-9 Billing: Yes Source: Developed by Drs. Chalo Li, Graciela Byrd, Baldo Lofton and colleagues, with an educational lucero from [employer]. Thrive Questionnaire Date Thrive assessed: 03/22/24 I am a: Patient What is your living situation today?: I have a steady place to live Within the past 12 months, did the food you bought not last and you didn't have the money to get more?: Sometimes True Within the past 12 months, did you worry whether your food would run out before you got money to buy more?: Sometimes True Do you have trouble paying for medicines?: No Do you have trouble getting transportation to medical appointments?: No Do you have trouble paying your heating and electricity bill?: Yes Do you have trouble taking care of your child, family member or friend?: I choose not to answer this question Do you have trouble with day-to-day activities such as bathing, preparing meals, shopping, managing finances, etc.?: I choose not to answer this question Are you currently unemployed and looking for a job?: I choose not to answer this question Are you interested in more education?: No Please select the resources that you would like help with: None Currently or been in a relationship where the following occur: No concerns reported THRIVE Score: 3 AUDIT C Alcohol Use Questionnaire (AUDIT-C) 1. How often do you have a drink containing alcohol?: Monthly or less 2. How many drinks containing alcohol do you have on a typical day when you are drinking?: 1 or 2 3. How often do you have six or more drinks on one occasion?: Less than monthly Total Score: 2 Score Reviewed/Action Taken: Yes PATRICIA-7 AMB Questionnaire PATRICIA-7 Date PATRICIA - 7 assessed: 03/22/24 Feeling nervous, anxious, or on edge: 1 = Several days Not being able to stop or control worryin = Not at all Worrying too much about different things: 0 = Not at all Trouble relaxin = Not at all Being so restless that it is hard to sit still: 0 = Not at all Becoming easily annoyed or irritable: 0 = Not at all Feeling afraid as if something awful might happen: 0 = Not at all Total PATRICIA-7 score (0-4 normal; 5-9 mild; 10-14 moderate; 15-21 severe): 1 Source: Developed by Drs. Chalo Li, Graciela Byrd, Baldo Lofton and colleagues, with an educational lucero from [employer] PATRICIA-7 Assessment Billing PATRICIA-7 Assessment Tool: PATRICIA-7 Assessment 20984 Review of Systems Const Reports as per HPI Physical exam (Primary Care) Vital Signs: Last Vital Signs Pulse 80 03/22/24 10:16 BP 118/78 03/22/24 10:16 Pulse Ox 96 03/22/24 10:16 BMI result Body Mass Index 43.5 Tobacco/Smoking Status: Tobacco use Status Tobacco use date assessed 03/22/24 03/22/24 10:22 Patient Tobacco Use Status Current someday Tobacco 03/22/24 10:22 e-Cigarette/Vaping Use Never Used 03/22/24 10:22 PHQ-9: PHQ-9 Score PHQ-9: Total score 0 03/22/24 10:37 Depression Screening Interpretation: Negative Thrive Assessment: Date of Thrive Assessment Date Thrive assessed 03/22/24 03/22/24 10:22 Currently or been in a relationship where the following occur: No concerns reported Const General: cooperative Nutritional Appearance: obese morbidly obese Orientation/consciousness: patient oriented x3 Resp Effort & Inspection: normal respiratory effort Auscultation: clear to auscultation bilaterally and diminished lung sounds Cardio Rate: regular rate Rhythm: regular rhythm Heart sounds: S1 normal heart sound present and S2 normal heart sound present Neuro General: patient oriented x3 Extrem Right lower extremity: no edema Left lower extremity: no edema Psych Appearance: grossly normal Mental Status: mental status grossly normal Speech and movement: Normal speech and movement present Affect: normal affect Attitude: cooperative Thought process: Normal thought process present Thought content: Normal thought content present Insight: Good insight present (Psych) Judgement: Good judgement present (Psych) Assessment and Plan Assessment & Plan (1) Hypertension: Code(s): I10 - Essential (primary) hypertension Plan: Stable, labs ordered (2) Dyslipidemia: Code(s): E78.5 - Hyperlipidemia, unspecified Plan: Increasing atorvastatin from 10mg to 20mg, labs ordered Plan The patient agreed to the use of a diploma medical assistant for this encounter. Scribed for MARILYN Pritchett by Nelia Phillips diploma medical assistant, on 03/22/2024 at 10:35 EST. Orders: Orders Complete Blood Count Auto Diff Today E78.5 - Hyperlipidemia, unspecified, I10 - Essential (primary) hypertension Comprehensive [place]. Panel Fast Today E78.5 - Hyperlipidemia, unspecified, I10 - Essential (primary) hypertension TSH reflex Free T4 Today E78.5 - Hyperlipidemia, unspecified, I10 - Essential (primary) hypertension Lipid Panel Today E78.5 - Hyperlipidemia, unspecified, I10 - Essential (primary) hypertension UA CC w/rflx Micro + Cult Today E78.5 - Hyperlipidemia, unspecified, I10 - Essential (primary) hypertension Medications: Changed From atorvastatin 10 mg PO BEDTIME 90 tabs 1RF To atorvastatin 20 mg PO BEDTIME 90 tabs 1RF Coding Level of Care Code Est Pt Level 3 (60040) Diagnoses Hypertension I10 Dyslipidemia E78.5 Additional Codes PATRICIA-7 Assessment Billing - PATRICIA-7 Assessment Tool: PATRICIA-7 Assessment 17609 ([id number])
== END 2024-03-22 10:56 | disposition home or self-care (01) ==
PROVIDERS: PCP Nurse Practitioner Family; Visit Provider Nurse Practitioner Family
DX: I10 Essential (primary) hypertension (principal); E78.5 Hyperlipidemia, unspecified

== ENCOUNTER → 2024-03-22 10:15 | Outpatient (BNVA) | payer OTHER, SELFPAY | PROVIDERS: PCP Nurse Practitioner Family; Visit Provider Nurse Practitioner Family | DX: I10 Essential (primary) hypertension (principal); E78.5 Hyperlipidemia, unspecified | CPT/HCPCS: 96127; 99212 ==

== ENCOUNTER 2024-04-10 09:34 | Outpatient (REF) | payer OTHER, SELFPAY ==
[2024-04-10 13:12] LABS: MANUAL DIFF FLAG NO
[2024-04-10 13:26] LABS: Appearance Urine Turbid; Color Urine Dark Yellow; Glucose Urine UA Negative (Negative); Leukocyte Esterase Urine Trace (Negative); Nitrite Urine Negative (Negative); PH 5.5 (5.0-9.0); Specific Gravity - Urine >= 1.030 (1.005-1.025); UMIC TRIGGER UACC YES; Urine Blood Negative (Negative); Urine Ketones Trace mg/dL (Negative); Urine Protein 30 (1+) mg/dL (Neg-Trace)
[2024-04-10 13:39] LABS: Basophils Percent Auto 0.4 % (0-2); Eosinophils Absolute Auto 0.2 X10*3/uL (0.0-0.4); Eosinophils Percent Auto 2.3 % (0-4); Hematocrit 48.2 % (37.0-47.0); Hemoglobin 15.6 g/dl (12.0-16.0); Imm Gran Abs Auto 0.04 X10*3/uL (0.00-0.03); Imm Gran Pct Auto 0.4 % (0.0-0.4); Lymphocytes Percent Auto 21.7 % (20-40); Mean Corpuscular HGB Conc 32.4 g/dl (31.0-35.0); Mean Corpuscular Hemoglobin 29.8 pg (27.0-33.0); Mean Corpuscular Volume 92.2 fL (80.0-98.0); Mean Platelet Volume 10.5 fL (9.4-12.3); Monocytes Absolute Auto 0.6 X10*3/uL (0.1-1.2); Monocytes Percent Auto 6.3 % (2-11); Neutrophils Absolute Auto 6.2 x10*3/uL (2.0-8.3); Neutrophils Percent Auto 68.9 % (45-73); Platelet Count 189 X10*3/uL (160-400); Red Blood Count 5.23 X10*6/uL (4.20-5.50); Red Cell Distribution Width 13.8 % (11.0-16.0); White Blood Count 9.1 X10*3/uL (4.8-10.8)
[2024-04-10 13:52] LABS: Bacteria Urine 1+ (None Seen); Calcium Oxalate Crystals Urine Present; Hyaline Casts Urine 0-2 /LPF (0-2); RBC Urine 0-2 /HPF (0-2); WBC Urine 0-5 /HPF (0-5)
[2024-04-10 13:56] LABS: Alanine Aminotransferase 20 U/L (0-31); Albumin Level 4.1 g/dL (3.5-5.0); Alkaline Phosphatase 145 U/L (39-117); Anion Gap 12 (12-20); Aspartate Amino Transferase 15 U/L (5-31); Blood Urea Nitrogen 15 mg/dL (9-16); Calcium 9.6 mg/dL (8.4-10.2); Carbon Dioxide 30 mmol/L (22-29); Chloride 105 mmol/L (96-108); Cholesterol 154 mg/dL (<200); Estimated Glomerular Filt Rate 58; Glucose Fasting 141 mg/dL (60-99); HDL Cholesterol 44 mg/dL (>40); LDL Cholesterol Calculated 89 mg/dL (<100); Potassium 3.8 mmol/L (3.3-5.1); Sodium 143 mmol/L (135-145); Total Protein 6.9 g/dL (6.5-8.0); Triglycerides 109 mg/dL (<150)
[2024-04-10 14:11] LABS: TSH reflex Free T4 2.18 uIU/mL (0.32-4.0)
== END 2024-04-10 09:35 | disposition home or self-care (01) ==
LOC: HO.HMGCLDS 09:34
PROVIDERS: PCP Nurse Practitioner Family; Visit Provider Nurse Practitioner Family
DX: E78.5 Hyperlipidemia, unspecified (principal); I10 Essential (primary) hypertension
CPT/HCPCS: 36415; 80053; 80061; 81001; 84443; 85025

== ENCOUNTER 2024-04-18 09:31 | Outpatient (REF) | payer OTHER, SELFPAY ==
[2024-04-18 13:29] LABS: Appearance Urine Turbid; Color Urine Dark Yellow; Glucose Urine UA Negative (Negative); Leukocyte Esterase Urine Negative (Negative); Nitrite Urine Negative (Negative); PH 5.5 (5.0-9.0); Specific Gravity - Urine 1.025 (1.005-1.025); Urine Blood Negative (Negative); Urine Ketones Trace mg/dL (Negative); Urine Protein Trace mg/dL (Neg-Trace)
[2024-04-18 14:08] LABS: Gamma Glutamyl Transpeptidase 136 U/L (7-33)
[2024-04-21 19:23] LABS: Alk.Phos Iso. Macrohepatic 0 % (<=0); Alk.Phos Isoenzymes Bone 37 % (28-66); Alk.Phos Isoenzymes Intest 0 % (1-24); Alk.Phos Isoenzymes Liver 63 % (25-69); Alk.Phos Isoenzymes Placental 0 % (<=0); Alk.Phos Isoenzymes Total 149 U/L (37-153)
== END 2024-04-18 09:32 | disposition home or self-care (01) ==
LOC: HO.HMGCLDS 09:31
PROVIDERS: PCP Nurse Practitioner Family; Visit Provider Nurse Practitioner Family
DX: R74.8 Abnormal levels of other serum enzymes (principal); E78.5 Hyperlipidemia, unspecified; I10 Essential (primary) hypertension
CPT/HCPCS: 36415; 81003; 82977; 84080

== ENCOUNTER 2024-05-29 10:28 | Outpatient (AMB) | payer OTHER, SELFPAY ==
--- NOTE | 2024-05-29 10:29 | AM.OFFWIN_ITS ---
Intake Vital Signs 05/29/24 10:31 Height 5 ft 2 in Weight 244 lb BMI 44.6 BP 116/78 Blood Pressure Location Rt brachial Position Sitting Pulse 68 Pulse Source Pulse Oximeter Temp 98.8 F Temp Source Oral Pulse Oximetry (%) 97 Oxygen Delivery Method Room Air Intake Visit Reasons: EP-cough, sore throat, chest & nose congestion Intake Note: Patient here for SOB, chest and nasal congestion, cough and nausea that started Eran morning. Patient Tobacco Use Status: Current someday Tobacco user Allergies erythromycin base [From E-MYCIN] Allergy (Severe, Verified 05/29/24 10:32) GI PAIN-SEVERE carvedilol Allergy (Mild, Verified 05/29/24 10:32) upset stomach, sweats Do you need a note to return to daycare/school/sports/work: No HPI HPI Comments History of Present Illness Details This is a 63-year-old female with a past medical history of insulin- dependent diabetes, pulmonary emboli currently maintained on Eliquis, asthma/COPD presenting for evaluation of sinus congestion, sore throat and cough that started on Wednesday afternoon. Patient states that her sore throat has resolved that her cough persists. Patient states that her cough was productive however is now dry. She reports subjective fevers but denies having any chills, ear pain, sore throat, hemoptysis, chest pain, nausea or vomiting. Patient has not taken any medication for treatment of her symptoms and denies any recent sick contacts. [facility] Medical History (Updated 05/29/24 @ 10:57 by Carri Nolen PA-C) Chronic right heart failure History of pulmonary embolism (~02/2021) Pulmonary hypertension COPD (chronic obstructive pulmonary disease) Obstructive sleep apnea on CPAP Personal history of nicotine dependence DM type 2 (diabetes mellitus, type 2) (~09/2016) Dyslipidemia Anxiety Poor balance Urge incontinence Morbid obesity Tachycardia Surgical History History of endometrial ablation (~2003) History of esophagogastroduodenoscopy (EGD) (~2016) History of laparoscopic cholecystectomy (~2020) History of colonoscopy (~2015) History of cardiac cath History of carpal tunnel release (~2001) Family History Father Myocardial infarction Diabetes mellitus Mother Pancreatic cancer Maternal Grandfather Diabetes mellitus Maternal Aunt Pancreatic cancer Maternal Uncle AAA (abdominal aortic aneurysm) Daughter Substance use disorder Mental health disorder Social History Household Members: Family Household Members Other:: Granddaughter Housing: House Housing Other:: Granddaughter Are you a primary care assistant to a significant other at home: No Do you presently have visiting nurse or other home services: No Alcohol intake: current Alcohol intake frequency: holidays/special occasions only Comment: patient rings appropriately Patient Tobacco Use Status: Current someday Tobacco user Years Smoked: (onset 19yo - 1/2ppd x 40years - 20pyh - quit in 2019) e-Cigarette/Vaping Use: Never Used Second Hand Smoke Exposure: No Substance Use Type: Marijuana service: No Current occupational status: disabled Cognitive needs: No Hearing needs: No Vision needs: No Review of Systems Const All systems reviewed & are unremarkable except as noted in HPI and below Denies body aches, Denies chills and Reports fever(s) (subjective) Eyes Reports no additional complaints ENT Reports no additional complaints, Denies otalgia, Reports sore throat (resolved) and Denies throat swelling Card Reports no additional complaints and Denies chest pain Resp Denies change in phlegm color, Reports chest congestion, Reports cough, Denies hemoptysis and Denies wheezing GI Reports no additional complaints, Denies nausea and Denies vomiting Reports no additional complaints Musc Reports no additional complaints Skin/Breast Reports system reviewed and no additional complaints, except as documented Psych Reports no additional complaints Endo Reports no additional complaints Aller/Immun Denies throat swelling and Denies wheezing Physical Exam Patient is afebrile. Const General: cooperative, healthy appearing, comfortable, no acute distress, well developed, alert, awake and Physically active Nutritional Appearance: obese Orientation/consciousness: patient oriented x3 Limitations: no limitations HEENT Head: Yes normal to inspection and Yes normocephalic Ears: hearing grossly normal bilaterally, external ears normal, TM's normal bilaterally and EAC's normal General nose exam: Normal external nose present Face and sinus: Yes normal facial exam Teeth and gingiva: dentition normal Throat: Yes posterior oropharynx normal (There is no edema, erythema or exudates of the posterior oropharynx) Eyes General: appearance normal, both eyes and all related structures Neck Lymphatic: no lymphadenopathy noted Resp Effort & Inspection: normal respiratory effort, able to speak in complete sentences, no audible wheezes, no cough, no pursed lip breathing and no respiratory distress Auscultation: clear to auscultation bilaterally Cardio Rate: regular rate Rhythm: regular rhythm Skin General skin exam: no rashes or lesions noted Neuro General: patient oriented x3 Psych Appearance: grossly normal Mental Status: mental status grossly normal Insight: Good insight present (Psych) Judgement: Good judgement present (Psych) Assessment & Plan Assessment & Plan (1) Acute upper respiratory infection: Comment: SARS panel is ordered and pending. Lungs are clear to auscultation bilaterally and therefore imaging is deferred at this time. Code(s): J06.9 - Acute upper respiratory infection, unspecified Plan: Codeine cough syrup q.6 hours p.r.n. cough, increase fluids daily, follow-up PCP as needed. Orders: Orders SARS-CoV2/FLU/RSV Today J06.9 - Acute upper respiratory infection, unspecified Medications: New promethazine-codeine 6.25-10 mg/5 mL 5 mL PO Q6H PRN 118 mL 0RF cough Coding Level of Care Code Est Pt Level 3 (06542) Diagnoses Acute upper respiratory infection J06.9 Time Spent (min) 20
[2024-05-29 10:31] VITALS: BP 116/78; PULSE 68; TEMP 37.1; O2SAT 97; BMI 44.6
== END 2024-05-29 11:17 | disposition home or self-care (01) ==
PROVIDERS: PCP Nurse Practitioner Family; Visit Provider Physician Assistant
DX: J06.9 Acute upper respiratory infection, unspecified (principal)

== ENCOUNTER 2024-05-29 10:28 | Outpatient (REF) | payer OTHER, SELFPAY ==
[2024-05-29 14:33] LABS: Influenza A PCR NEGATIVE (Negative); Influenza B PCR NEGATIVE (Negative); Resp Syncy Virus RNA Qual PCR NEGATIVE (Negative); SARS COV2 PCR INHOUSE POSITIVE (Negative)
== END 2024-05-29 10:29 | disposition home or self-care (01) ==
LOC: HO.LNP 10:28
PROVIDERS: PCP Nurse Practitioner Family; Visit Provider Physician Assistant
DX: J06.9 Acute upper respiratory infection, unspecified (principal)
CPT/HCPCS: 0241U; 99212

== ENCOUNTER 2024-07-07 13:30 | Outpatient (AMB) | payer OTHER, SELFPAY ==
[2024-07-07 13:32] VITALS: BP 118/58; PULSE 82; BMI 44.3
--- NOTE | 2024-07-07 13:32 | MHC.OFFVIS ---
Vital Signs 07/07/24 13:32 Height 5 ft 2 in Weight 242 lb 4.608 oz BMI 44.3 BP 118/58 L Blood Pressure Location Lt brachial Position Sitting Pulse 82 Pulse Source Pulse Oximeter Intake Visit Reasons: DM Intake Note: Patient present today to follow up on Type 2 Diabetes Mellitus. 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 She was last seen by Ambre Sams NP. She is diagnosed with type 2 diabetes in September 2016. She forgot her glucometer today. Hemoglobin A1c is 7.9%. The patient reports her sugars increased because she stopped Ozempic and metformin 2-3 months ago due to diarrhea on the medications. Side effects resolved. She is taking Toujeo 15 units daily. She is monitoring portion sizes. She avoids snacking between meals. She wants to lose weight. She did not tolerate Jardiance due to hypoglycemia and feeling weak. She has also tried Trulicity in the past. She denies episodes of hypoglycemia. Complications: Nephropathy Per Amber's last note she had a dexamethasone suppression test that was abnormal in the past. 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 Midnight salivary cortisol level was normal. She was supposed to do another midnight salivary cortisol and have additional lab testing, but she did not have it done. ROS: Constitutional: No unexplained weight loss, fever, chills, fatigue or night sweats. Respiratory: No shortness of breath Cardiovascular: No chest pain Gastrointestinal: No anorexia, nausea, vomiting or diarrhea. No abdominal pain Neurologic: No headache, dizziness, syncope Physical exam: Constitutional: Alert, in no distress. Neck: Supple, Full range of motion. No lymphadenopathy. No palpable thyroid masses. Respiratory: Clear to auscultation. Cardiovascular: S1 S2 regular. Systolic murmur. Right foot: Warm and well perfused. No clubbing, cyanosis or edema. DP pulse 3+. Decreased vibratory sensation. Intact sensation to monofilament. No open wounds. Left foot: Warm and well perfused. No clubbing, cyanosis or edema. DP pulse 3+. Decreased vibratory sensation. Intact sensation to monofilament. No open wounds. [facility] Medical History (Updated 07/07/24 @ 14:34 by WINDY Marquez) Uncontrolled type 2 diabetes mellitus with hyperglycemia, with long-term current use of insulin Chronic right heart failure History of pulmonary embolism (~02/2021) Pulmonary hypertension COPD (chronic obstructive pulmonary disease) Obstructive sleep apnea on CPAP Personal history of nicotine dependence DM type 2 (diabetes mellitus, type 2) (~09/2016) Dyslipidemia Anxiety Poor balance Urge incontinence Morbid obesity Tachycardia Surgical History History of endometrial ablation (~2003) History of esophagogastroduodenoscopy (EGD) (~2016) History of laparoscopic cholecystectomy (~2020) History of colonoscopy (~2015) History of cardiac cath History of carpal tunnel release (~2001) Family History Father Myocardial infarction Diabetes mellitus Mother Pancreatic cancer Maternal Grandfather Diabetes mellitus Maternal Aunt Pancreatic cancer Maternal Uncle AAA (abdominal aortic aneurysm) Daughter Substance use disorder Mental health disorder Social History Household Members: Family Household Members Other:: Granddaughter Housing: House Housing Other:: Granddaughter Are you a primary weekend caregiver to a significant other at home: No Do you presently have visiting nurse or other home services: No Alcohol intake: current Alcohol intake frequency: holidays/special occasions only Comment: patient rings appropriately Patient Tobacco Use Status: Current someday Tobacco user Years Smoked: (onset 19yo - 1/2ppd x 40years - 20pyh - quit in 2020) e-Cigarette/Vaping Use: Never Used Second Hand Smoke Exposure: No Substance Use Type: Marijuana service: No Current occupational status: disabled Cognitive needs: No Hearing needs: No Vision needs: No Physical Exam Vital Signs: Last Vital Signs Pulse 82 07/07/24 13:32 BP 118/58 L 07/07/24 13:32 BMI result Body Mass Index 44.3 Results AMB Hemoglobin A1c AMB Hemoglobin A1c 7.9 % Last Edit by ELI Pappas on 07/07/24 13:50 Results Reviewed Results Reviewed: Laboratory Last Values Glucose (Clinic) 149 mg/dL (60-115) H 07/07/24 13:41 Assessment & Plan Assessment & Plan (1) Uncontrolled type 2 diabetes mellitus with hyperglycemia, with long-term current use of insulin: Code(s): E11.65 - Type 2 diabetes mellitus with hyperglycemia; Z79.4 - residential (current) use of insulin Category: Medical (2) Abnormal dexamethasone suppression test: Code(s): R94.7 - Abnormal results of other endocrine function studies Category: Medical (3) Morbid obesity: Code(s): E66.01 - Morbid (severe) obesity due to excess calories Category: Medical Plan Discussed pathophysiology of Type II Diabetes Mellitus with the patient in detail.? I explained the director long term care risks and complications associated with uncontrolled diabetes including nephropathy, neuropathy, peripheral vascular disease, retinopathy, increased risk of heart disease and stroke.? Discussed lifestyle modification with the patient. Recommended 30 minutes of moderately vigorous exercise 5 days per week to promote weight loss. Continue Toujeo 15 units daily. Start Mounjaro 2.5 mg once weekly. Side effects, contraindications and administration reviewed. She declined prescription for the Dexcom G 7 and Ines 3 . Refilled Nies 2 sensors. I asked her to bring her CGM to all appointments so we can review data. Patient will schedule a follow up in 1 month for re-evaluation of diabetes on Mounjaro and for ?[place] with endo DIRECTOR HYDROGEN STORAGE ENGINEERING or MD. Orders: Orders AMB Hemoglobin A1c Today E11.9 - Type 2 diabetes mellitus without complications, Z13.9 - Encounter for screening, unspecified Medications: New tirzepatide (Mounjaro) for 4 weeks 2.5 mg (0.5 mL) subcut QWEEK 2 mL 0RF Refilled insulin glargine U-300 conc (Toujeo SoloStar U-300 Insulin) 15 units (0.05 mL) subcut BEDTIME 4.5 mL 3RF E11.9 - Type 2 diabetes mellitus without complications flash glucose sensor (FreeStyle Ines 2 Sensor kit) DIRECTED CHANGE EVERY 14 DAYS 2 kits 11RF Discontinued metformin Discontinued Reason: Doctor's Order 1,000 mg PO BID 180 tabs 1RF semaglutide (Ozempic) Discontinued Reason: Doctor's Order 0.5 mg (0.736 mL) subcut QWEEK 4 weeks 2.944 mL 0RF Coding Level of Care Code Est Pt Level 5 (26012) Complex EM visit Add On G2211 Diagnoses Uncontrolled type 2 diabetes mellitus with hyperglycemia, with long-term current use of insulin E11.65; Z79.4 Abnormal dexamethasone suppression test R94.7 Morbid obesity E66.01 Time Spent (min) 48 Comment Chart review, direct patient care, completing documentation
[2024-07-07 13:45] LABS: Glucose, Whole Blood 149 mg/dL (60-115)
== END 2024-07-07 14:20 | disposition home or self-care (01) ==
PROVIDERS: PCP Nurse Practitioner Family; Visit Provider Physician Assistant Medical
DX: E11.65 Type 2 diabetes mellitus with hyperglycemia (principal); Z79.4 Long term (current) use of insulin; R94.7 Abnormal results of other endocrine function studies; E66.01 Morbid (severe) obesity due to excess calories; Z13.9 Encounter for screening, unspecified; E11.9 Type 2 diabetes mellitus without complications

== ENCOUNTER → 2024-07-07 13:30 | Outpatient (BNVA) | payer OTHER, SELFPAY | PROVIDERS: PCP Nurse Practitioner Family; Visit Provider Physician Assistant Medical | DX: E11.65 Type 2 diabetes mellitus with hyperglycemia (principal); R94.7 Abnormal results of other endocrine function studies; E66.01 Morbid (severe) obesity due to excess calories; Z79.4 Long term (current) use of insulin; Z68.41 Body mass index [BMI] 40.0-44.9, adult | CPT/HCPCS: 82947; 83036; 99212 ==

== ENCOUNTER 2024-07-11 14:55 | Outpatient (AMB) | payer OTHER, SELFPAY ==
[2024-07-11 14:59] VITALS: BP 110/60; PULSE 80; O2SAT 96; BMI 43.9
--- NOTE | 2024-07-11 14:59 | MHC.PC.OV ---
Vital Signs 07/11/24 14:59 Height 5 ft 2 in Weight 240 lb BMI 43.9 BP 110/60 Blood Pressure Location Rt brachial Position Sitting Pulse 80 Pulse Source Pulse Oximeter Pulse Oximetry (%) 96 Oxygen Delivery Method Room Air Intake Visit Reasons: Annual Physical exam Intake Note: pt is here for PE Allergies erythromycin base [From E-MYCIN] Allergy (Severe, Verified 07/11/24 14:59) GI PAIN-SEVERE carvedilol Allergy (Mild, Verified 07/11/24 14:59) upset stomach, sweats Tobacco use date assessed: 07/11/24 Dental Screening Dental Screen Date: 07/11/24 Did you have a dental visit in the last 12 months?: Yes Did you have a dental problem in the last 6 months where you did not have access to dental care?: No Was dental information given to patient?: Patient has dentist HPI Annual Physical exam HPI Details History of Present Illness The patient is a 64-year-old female presenting for an annual physical examination. She has a history of pulmonary hypertension, which is managed by her [employer] sales [employer] lending team member in [place], and diabetes mellitus, for which she follows up with an endocrine oncologist. She denies experiencing any increased shortness of breath or chest pain. There have been no recent changes in her diabetic symptoms, and she does not report any current issues that require adjustment in her diabetes management. cologuard is UTD and so is mammo Her medical history also includes obesity, a condition that has previously contributed to trace edema in her lower extremities. Her childbirth educator monitors her cardiovascular health on a yearly basis, with no new symptoms or complications reported in her last visit. The patient has been compliant with her health maintenance in terms of specialist visits and routine screenings. Health Maintenance - Mammogram is up to date. - Patient to confirm date of last gynecological examination. Social History Review of Systems - Respiratory: Denies increased shortness of breath. - Cardiovascular: Denies chest pain. - Gastrointestinal: Denies blood in stool, constipation, or diarrhea. - Genitourinary: Denies urinary issues. - Psychiatric: Denies anxiety or depression. Physical Exam General: Cooperative, healthy appearing, comfortable, no acute distress and well developed, morbidly obese Orientation: Patient oriented x3 Limitations: No limitations Head: Normal to inspection Ears: TMs intact Nose: Normal external nose present Face and sinus: Normal facial exam Eyes: Appearance normal, both eyes and all related structures Neck: Normal visual inspection and Yes full ROM Respiratory: Normal respiratory effort and able to speak in complete sentences. Clear/dim bilaterally Cardiovascular: Regular rate and rhythm. Normal S1 and S2 GI: Normal to inspection. Soft to palpation and nontender Skin: No rashes or lesions noted Neuro: Patient oriented x3 Extremities: Trace edema in the lower extremities, feet were intact Results Plan - Continue management of pulmonary hypertension with [employer] sales [employer] lending team member. - Follow regular endocrinology appointments for diabetes management. - Monitor weight management and consider interventions to address obesity. - Encourage routine cardiovascular follow-ups with childbirth educator. -refer for bone density Patient was informed and verbally consented to the use of an ambient scribe for clinic note documentation during this visit. Discussion Notes During the visit, I discussed with the patient the importance of continuing her current management strategies for pulmonary hypertension and diabetes mellitus with her specialized care teams. We reviewed her ongoing need for cardiovascular monitoring due to her history of obesity and its related edema in the lower extremities. I encouraged her to ensure routine gynecological examinations are up to date, as they are vital in her age group. We did not identify any urgent health issues today, and her mammogram remains current. Patient Instructions - Continue current medications and follow-ups with specialists for pulmonary hypertension and diabetes. - Maintain adherence to weight management strategies. - Notify clinic of any new or worsening symptoms. [facility] Medical History Uncontrolled type 2 diabetes mellitus with hyperglycemia, with long-term current use of insulin Chronic right heart failure History of pulmonary embolism (~02/2021) Pulmonary hypertension COPD (chronic obstructive pulmonary disease) Obstructive sleep apnea on CPAP Personal history of nicotine dependence DM type 2 (diabetes mellitus, type 2) (~09/2016) Dyslipidemia Anxiety Poor balance Urge incontinence Morbid obesity Tachycardia Surgical History History of endometrial ablation (~2003) History of esophagogastroduodenoscopy (EGD) (~2016) History of laparoscopic cholecystectomy (~2020) History of colonoscopy (~2015) History of cardiac cath History of carpal tunnel release (~2001) Family History Father Myocardial infarction Diabetes mellitus Mother Pancreatic cancer Maternal Grandfather Diabetes mellitus Maternal Aunt Pancreatic cancer Maternal Uncle AAA (abdominal aortic aneurysm) Daughter Substance use disorder Mental health disorder Social History Household Members: Family Household Members Other:: Granddaughter Housing: House Housing Other:: Granddaughter Are you a primary critical care physician assistant to a significant other at home: No Do you presently have visiting nurse or other home services: No Alcohol intake: current Alcohol intake frequency: holidays/special occasions only Comment: patient rings appropriately Patient Tobacco Use Status: Current someday Tobacco user Years Smoked: (onset 19yo - 1/2ppd x 40years - 20pyh - quit in 2020) e-Cigarette/Vaping Use: Never Used Second Hand Smoke Exposure: No Substance Use Type: Marijuana service: No Current occupational status: disabled Cognitive needs: No Hearing needs: No Vision needs: No Questionnaire PHQ-9 Over the last 2 weeks, how often have you been bothered by any of the following problems? 1. Little interest or pleasure in doing things: not at all 2. Feeling down, depressed, or hopeless: not at all 3. Trouble falling or staying asleep, or sleeping too much: not at all 4. Feeling tired or having little energy: several days 5. Poor appetite or overeating: not at all 6. Feeling bad about yourself - or that you are a failure or have let yourself or your family down: not at all 7. Trouble concentrating on things, such as reading the newspaper or watching television: not at all 8. Moving or speaking so slowly that other people could have noticed. Or the opposite - being so fidgety or restless that you have been moving around a lot more than usual: not at all 9. Thoughts that you would be better off or of hurting yourself in some way: not at all Total score: 1 Depression Screening Interpretation: Negative Depression Screening Done: Yes 40723 - PHQ-9 Billing: Yes Source: Developed by Drs. Chalo Li, Graciela Byrd, Baldo Lofton and colleagues, with an educational lucero from [employer]. Thrive Questionnaire Date Thrive assessed: 07/11/24 I am a: Patient What is your living situation today?: I have a steady place to live Within the past 12 months, did the food you bought not last and you didn't have the money to get more?: I choose not to answer this question Within the past 12 months, did you worry whether your food would run out before you got money to buy more?: I choose not to answer this question Do you have trouble paying for medicines?: No Do you have trouble getting transportation to medical appointments?: I choose not to answer this question Do you have trouble paying your heating and electricity bill?: I choose not to answer this question Do you have trouble taking care of your child, family member or friend?: No Do you have trouble with day-to-day activities such as bathing, preparing meals, shopping, managing finances, etc.?: No Are you currently unemployed and looking for a job?: I choose not to answer this question Are you interested in more education?: No Please select the resources that you would like help with: None Currently or been in a relationship where the following occur: No concerns reported THRIVE Score: 0 AUDIT C Alcohol Use Questionnaire (AUDIT-C) 1. How often do you have a drink containing alcohol?: Monthly or less 2. How many drinks containing alcohol do you have on a typical day when you are drinking?: 1 or 2 3. How often do you have six or more drinks on one occasion?: Never Total Score: 1 Score Reviewed/Action Taken: Yes PATRICIA-7 AMB Questionnaire PATRICIA-7 Date PATRICIA - 7 assessed: 07/11/24 Feeling nervous, anxious, or on edge: 1 = Several days Not being able to stop or control worryin = Not at all Worrying too much about different things: 1 = Several days Trouble relaxin = Not at all Being so restless that it is hard to sit still: 0 = Not at all Becoming easily annoyed or irritable: 1 = Several days Feeling afraid as if something awful might happen: 0 = Not at all Total PATRICIA-7 score (0-4 normal; 5-9 mild; 10-14 moderate; 15-21 severe): 3 Source: Developed by Drs. Chalo Li, Graciela Byrd, Baldo Lofton and colleagues, with an educational lucero from [employer]. PATRICIA-7 Assessment Billing PATRICIA-7 Assessment Tool: PATRICIA-7 Assessment 24257 Physical exam (Primary Care) Vital Signs: Last Vital Signs Pulse 80 07/11/24 14:59 BP 110/60 07/11/24 14:59 Pulse Ox 96 07/11/24 14:59 Oxygen Delivery Method Room Air 07/11/24 14:59 BMI result Body Mass Index 43.9 Tobacco/Smoking Status: Tobacco use Status Tobacco use date assessed 07/11/24 07/11/24 15:01 Patient Tobacco Use Status Current someday Tobacco 07/11/24 15:01 e-Cigarette/Vaping Use Never Used 07/11/24 15:01 PHQ-9: PHQ-9 Score PHQ-9: Total score 1 07/11/24 15:28 Depression Screening Interpretation: Negative Thrive Assessment: Date of Thrive Assessment Date Thrive assessed 07/11/24 07/11/24 15:01 Currently or been in a relationship where the following occur: No concerns reported Office Procedures Flu Questionnaire Does the patient have a severe egg allergy?: No Does the patient have severe life threatening allergies?: No Does the patient have a fever or illness today?: No Has the patient ever had Guillain-[place] Syndrome?: No Has the patient ever had any past reaction to a flu shot?: No Immunizations Fluarix Triv [id number] (PF) 45 mcg (15 mcg x 3)/0.5 mL IM syringe Performing Provider: MARILYN Monge [place] [facility] Administered by: Christoph Cornejo CMA on 07/11/24 15:56 Dose Route Admin Location Dispensed Lot Number Expiration Date [facility] Furn[employer]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 0.5 mL IM Right Deltoid 0.5 mL [id number] 01/01/25 [id number] [employer] VIS Given Date VIS Provided VIS Publication Date 07/11/24 Single Vaccine 21 Eligibility Eligibility Date Funding Source Not [facility] Eligible 07/11/24 Private Coding Level of Care Code Est Pt Prev Care 40-64y(43525) Diagnoses Encounter for routine adult physical exam with abnormal findings Z00.01 Vitamin D deficiency E55.9 Postmenopausal Z78.0 Additional Codes PATRICIA-7 Assessment Billing - PATRICIA-7 Assessment Tool: PATRICIA-7 Assessment 47224 ([id number]) PHQ-9 - 43707 - PHQ-9 Billing: Yes ([id number]) Assessment & Plan Assessment & Plan (1) Encounter for routine adult physical exam with abnormal findings: Code(s): Z00.01 - Encounter for general adult medical examination with abnormal findings Category: Medical (2) Vitamin D deficiency: Code(s): E55.9 - Vitamin D deficiency, unspecified Category: Medical (3) Postmenopausal: Code(s): Z78.0 - Asymptomatic menopausal state Category: Medical Plan . Orders: Orders Complete Blood Count Auto Diff Today Z00.01 - Encounter for general adult medical examination with abnormal findings TSH reflex Free T4 Today Z00.01 - Encounter for general adult medical examination with abnormal findings Lipid Panel Today Z00.01 - Encounter for general adult medical examination with abnormal findings Vitamin D 25-OH Total Today E55.9 - Vitamin D deficiency, unspecified XR DEXA axial skeleton Today E55.9 - Vitamin D deficiency, unspecified, Z78.0 - Asymptomatic menopausal state Comprehensive [place]. Panel Fast Today Z00.01 - Encounter for general adult medical examination with abnormal findings UA CC w/rflx Micro + Cult Today Z00.01 - Encounter for general adult medical examination with abnormal findings Influenza [id number] Immunization Today Z23 - Encounter for immunization
== END 2024-07-11 16:06 | disposition home or self-care (01) ==
PROVIDERS: PCP Nurse Practitioner Family; Visit Provider Nurse Practitioner Family
DX: Z00.01 Encounter for general adult medical examination with abnormal findings (principal); E55.9 Vitamin D deficiency, unspecified; Z78.0 Asymptomatic menopausal state; Z23 Encounter for immunization

== ENCOUNTER → 2024-07-11 14:55 | Outpatient (BNVA) | payer OTHER, SELFPAY | PROVIDERS: PCP Nurse Practitioner Family; Visit Provider Nurse Practitioner Family | DX: Z00.01 Encounter for general adult medical examination with abnormal findings (principal); J44.9 Chronic obstructive pulmonary disease, unspecified; I27.20 Pulmonary hypertension, unspecified; E55.9 Vitamin D deficiency, unspecified; Z23 Encounter for immunization; Z78.0 Asymptomatic menopausal state | CPT/HCPCS: 90471; 90656; 96127; 99396 ==

== ENCOUNTER 2024-08-07 13:22 | Outpatient (AMB) | payer OTHER, SELFPAY ==
[2024-08-07 13:24] VITALS: BP 110/74; PULSE 67; BMI 42.9
--- NOTE | 2024-08-07 13:24 | MHC.OFFVIS ---
Vital Signs 08/07/24 13:24 Height 5 ft 2 in Weight 234 lb 9.149 oz BMI 42.9 BP 110/74 Blood Pressure Location Lt brachial Position Sitting Pulse 67 Pulse Source Pulse Oximeter Intake Visit Reasons: DM, Cushings Intake Note: Patient present today for Type 2 Diabetes Mellitus. and Cushings. 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 Type 2 DM HPI She is diagnosed with type 2 diabetes in September 2016. Current meds Mounjaro 2.5 mg weekly Toujeo 15 units at bedtime Prior meds Ozempic 2 mg had lots diarrhea Trulicity : tolerated it fine Jardiance: felt weak and hypoglycemia Forgot her memorial mason again today, also did not bring it last visit Has a free style phil 2 Says she is averaging 117 mg/dl Hypoglycemia: had a 68 mg/dl last week, did have symptoms, no other episodes Hemoglobin A1c is 7.9%. 07/07/24 Random Glucose: 106 mg/dl at 11 am ate a yogurt and banana Last Diabetic eye exam: 07/30/24 Retinopathy: no Last Podiatry Visit: Doesn't have one Neuropathy: no symptoms history of microalbuminuria but hasnt been checked again now in 3 years, last 2021. no heart attack or stoke Diet She is monitoring portion sizes. She avoids snacking between meals. Exercise : Not exercising bad knees and weather Weight : lost 8 lbs since Jul 2024 BMI 42.9 kg/m2 Weight 249 lbs Concern for Cushings She has physical findings suggestive of Roxana like plethora, visible vessels, supraclavicular fat pad and dorsocervical fat pad. Dex suppression 12/22 cortisol 2.1, ACTH <5, dex level good 06/2020 24 hr urine cortisol 3.4 09/2020: cortisol was 2.2 ACTH <5, dex level 417 09/2020 salivary cortisol 0.08 Complains of easy bruising. No proximal muscle weakness. Physical exam: Constitutional: Alert, in no distress. Neck: Supple, Full range of motion. No lymphadenopathy. No palpable thyroid masses. Respiratory: Clear to auscultation. Cardiovascular: S1 S2 regular. Systolic murmur. Foot exam 07/29 Right foot: Warm and well perfused. No clubbing, cyanosis or edema. DP pulse 3+. Decreased vibratory sensation. Intact sensation to monofilament. No open wounds. Left foot: Warm and well perfused. No clubbing, cyanosis or edema. DP pulse 3+. Decreased vibratory sensation. Intact sensation to monofilament. No open wounds. Laboratory Tests 12/30/19 06/14/20 06/19/20 08:26 10:32 11:58 Creatinine Estimated GFR Hgb A1c (Clinic) 10.2 H AST ALT Albumin Triglycerides Cholesterol LDL Cholesterol, Calc HDL Cholesterol Cortisol 2.1 ACTH <5 L Urine Total Volume 1125 Ur 24 Hour Volume 1125 Urine Creatinine Ur Creatinine mg/dL 36.21 Ur Creatinine 24 Hour 0.45 L Urine Microalbumin Microalb/Creat Ratio Ur Free Cortisol 24 Hr 3.4 L Saliva Cortisol Dexamethasone 09/28/20 09/28/20 10/15/20 08:30 Unknown 08:59 Creatinine Estimated GFR Hgb A1c (Clinic) AST ALT Albumin Triglycerides Cholesterol LDL Cholesterol, Calc HDL Cholesterol Cortisol 2.2 L 19.9 ACTH <5 L 23 Urine Total Volume Ur 24 Hour Volume Urine Creatinine Ur Creatinine mg/dL Ur Creatinine 24 Hour Urine Microalbumin Microalb/Creat Ratio Ur Free Cortisol 24 Hr Saliva Cortisol 0.08 Dexamethasone 417 12/02/21 10/27/22 06/15/23 11:12 15:18 13:47 Creatinine Estimated GFR Hgb A1c (Clinic) 8.6 H 7.1 H AST ALT Albumin Triglycerides Cholesterol LDL Cholesterol, Calc HDL Cholesterol Cortisol ACTH Urine Total Volume Ur 24 Hour Volume Urine Creatinine 109.34 Ur Creatinine mg/dL Ur Creatinine 24 Hour Urine Microalbumin 1268.0 Microalb/Creat Ratio 1159.6 Ur Free Cortisol 24 Hr Saliva Cortisol Dexamethasone 12/28/23 04/10/24 07/07/24 11:16 09:40 13:43 Creatinine 0.98 Estimated GFR 58 Hgb A1c (Clinic) 7.3 H 7.9 H AST 15 ALT 20 Albumin 4.1 Triglycerides 109 Cholesterol 154 LDL Cholesterol, Calc 89 HDL Cholesterol 44 Cortisol ACTH Urine Total Volume Ur 24 Hour Volume Urine Creatinine Ur Creatinine mg/dL Ur Creatinine 24 Hour Urine Microalbumin Microalb/Creat Ratio Ur Free Cortisol 24 Hr Saliva Cortisol Dexamethasone PFSH Medical History Uncontrolled type 2 diabetes mellitus with hyperglycemia, with long-term current use of insulin Chronic right heart failure History of pulmonary embolism (~02/2021) Pulmonary hypertension COPD (chronic obstructive pulmonary disease) Obstructive sleep apnea on CPAP Personal history of nicotine dependence DM type 2 (diabetes mellitus, type 2) (~09/2016) Dyslipidemia Anxiety Poor balance Urge incontinence Morbid obesity Tachycardia Surgical History History of endometrial ablation (~2003) History of esophagogastroduodenoscopy (EGD) (~2016) History of laparoscopic cholecystectomy (~2020) History of colonoscopy (~2015) History of cardiac cath History of carpal tunnel release (~2001) Family History Father Myocardial infarction Diabetes mellitus Mother Pancreatic cancer Maternal Grandfather Diabetes mellitus Maternal Aunt Pancreatic cancer Maternal Uncle AAA (abdominal aortic aneurysm) Daughter Substance use disorder Mental health disorder Social History Household Members: Family Household Members Other:: Granddaughter Housing: House Housing Other:: Granddaughter Are you a primary career development manager to a significant other at home: No Do you presently have visiting nurse or other home services: No Alcohol intake: current Alcohol intake frequency: holidays/special occasions only Comment: patient rings appropriately Patient Tobacco Use Status: Current someday Tobacco user Years Smoked: (onset 19yo - 1/2ppd x 40years - 20pyh - quit in 2019) e-Cigarette/Vaping Use: Never Used Second Hand Smoke Exposure: No Substance Use Type: Marijuana service: No Current occupational status: disabled Cognitive needs: No Hearing needs: No Vision needs: No Physical Exam Vital Signs: Last Vital Signs Pulse 67 08/07/24 13:24 BP 110/74 02/03/25 13:24 BMI result Body Mass Index 42.9 Results Reviewed Results Reviewed: Laboratory Last Values Glucose (Clinic) 106 mg/dL (60-115) 08/07/24 13:31 Assessment & Plan Assessment & Plan (1) Uncontrolled type 2 diabetes mellitus with hyperglycemia, with long-term current use of insulin: Code(s): E11.65 - Type 2 diabetes mellitus with hyperglycemia; 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 Last A1c from July 2024 was 7.9% which is above goal of 7%. She did not bring in her CGM memorial mason today so I could not download any data, she says she has been averaging 117 mg/dL but it is hard to tell what her blood sugar levels are like. In clinic today her random was 106 mg/dL. However clearly with that A1c I am sure she has had some high numbers in the late 100s or early 200s. She has lost 8 lb since starting Mounjaro 2.5 mg weekly as she was switched from Ozempic to Mounjaro in July 2024. She is tolerating the Mounjaro well. I will plan to go up on the Mounjaro. I will also decrease her Toujeo by 3 units. Given history of microalbuminuria, no recent levels, I will repeat these. In the future visits I will also plan to start her on Jardiance or Farxiga. In the past apparently she had hypoglycemia when she was started on Jardiance but I told her and reassured her that we will lower down her insulin when we start an SGLT2 inhibitor. Plan: -increase Mounjaro to 5 mg weekly -lower Toujeo to 12 units from 15 units daily at bedtime -she is not exercising, encouraged to walk at least 20 minutes daily and start lifting some weights if she can not walk much. -advised to bring CGM memorial mason to every visit -hypoglycemia education done -up-to-date on eye visit, no retinopathy Foot exam done on visit in July 2024, unremarkable, she does not see Podiatry -follow up in 12 weeks (2) Abnormal dexamethasone suppression test: Code(s): R94.7 - Abnormal results of other endocrine function studies Category: Medical Plan: She has physical findings suggestive of Roxana like plethora, visible vessels, supraclavicular fat pad and dorsocervical fat pad. Dex suppression 12/22 cortisol 2.1, ACTH <5, dex level good 06/2020 24 hr urine cortisol 3.4 09/2020: cortisol was 2.2 ACTH <5, dex level 417 09/2020 salivary cortisol 0.08 I think there is a low suspicion as dexamethasone suppression tests were equivocal and then she had normal salivary cortisol and 24 hour urine cortisol results. Plus she is losing weight on the Mounjaro and her diabetes is not that uncontrolled. She has not had any fractures. Regardless we will do salivary cortisol x2. If abnormal, we will proceed to also getting 24 hour urine test. Plan: -ordered salivary cortisol tests X 2 (3) Morbid obesity: Code(s): E66.01 - Morbid (severe) obesity due to excess calories Category: Medical Plan: BMI 42.9 kg per m2 Current weight 234 lb Weight down from 242 lb in July 2024. Plan: -advised to start walking at least 20 minutes daily and start lifting weights 2-3 days a week -increase Mounjaro to 5 mg weekly (4) Dyslipidemia: Code(s): E78.5 - Hyperlipidemia, unspecified Category: Medical Plan: LDL level from April 2024 noted to be at 89 mg/dL, LDL goal less than 70 mg/dL She is currently on atorvastatin 20 mg daily. I discussed with her the need for going up on the atorvastatin, however she would like to wait for repeat lipid panels before we make any changes. Plan: -repeat lipid panel ordered -continue atorvastatin 20 mg daily Plan I spent 30 minutes in reviewing the record, seeing the patient and documenting in the medical record. 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 Panel Fast Today E11.65 - Type 2 diabetes mellitus with hyperglycemia, Z79.4 - retirement (current) use of insulin Platelet Count Today E11.65 - Type 2 diabetes mellitus with hyperglycemia, Z79.4 - retirement (current) use of insulin Saliva Cortisol 08/08/24 E11.65 - Type 2 diabetes mellitus with hyperglycemia, Z79.4 - rim fire priming operator (current) use of insulin Saliva Cortisol Today E11.65 - Type 2 diabetes mellitus with hyperglycemia, Z79.4 - retirement (current) use of insulin Microalbumin, Random (w Creat) Today E11.65 - Type 2 diabetes mellitus with hyperglycemia, Z79.4 - retirement (current) use of insulin Medications: New tirzepatide (Mounjaro) 5 mg (0.5 mL) subcut QWEEK 6 mL 3RF Changed From insulin glargine U-300 conc (Toujeo SoloStar U-300 Insulin) 15 units (0.05 mL) subcut BEDTIME 4.5 mL 3RF E11.9 - Type 2 diabetes mellitus without complications To insulin glargine U-300 conc (Toujeo SoloStar U-300 Insulin) 12 units (0.04 mL) subcut BEDTIME 4.5 mL 3RF E11.9 - Type 2 diabetes mellitus without complications Discontinued tirzepatide (Mounjaro) for 4 weeks Discontinued Reason: Doctor's Order 2.5 mg (0.5 mL) subcut QWEEK 2 mL 0RF Patient Instructions: Increase Mounjaro to 5 mg weekly Decrease Insulin Toujeo to 12 units daily Please bring memorial mason to all diabetes visits Do fasting blood work and urine test Do salivary cortisol tests x2 Salivary cortisol collection instructions Specimen requirement Collect 1 mL or more of Saliva/fully saturated swab. Do not eat for 60 minutes prior to collecting specimen. Do not consume alcohol 12 hours prior to collecting specimen. Do not brush teeth immediately before collecting specimen as gums may bleed in contaminated specimen causing a falsely elevated result. Rinse mouth thoroughly with water 10 minutes before collecting specimen. Recommend collection time is generally between 11 PM and 1 AM. Be sure to clearly label each tube collected with correct date and time. Specimen visibly contaminated with blood, cellular debris, food particles or mucus must be recollected. Specimen collection 1. ?Label the exterior tube after salivette collection device using waterproof pen with your [patient] first and last name as well as date and time collected. 2. ?Remove the stopper of the container to expose the swab. ?Do not remove the insert from the tube. ?This is necessary for processing the specimen. 3. ?Place swab directly into the mouth by tipping the tube so that the swab falls into the mouth. The swab should be placed under the tongue or allow to move freely across the tongue. ?Do not place a swab between cheek and gum. ?Gently chewing the swab is acceptable. 4. ?Keep the swab in your mouth for 2 to 3 minutes. ?Be sure the swab is completely saturated with saliva; this will ensure that enough volume is collected. 5. ?Return the swab back into the insert. ?Do not touch the swab with the fingers. ?Do not remove the insert from the tube. 6. ?Replace the stopper, ensuring that the cap is tight [the cap will click when inserted properly] 7. ?Return salivette collection device to the lab. Preparation instruction If multiple specimens are submitted, ensure that all tubes are clearly labeled with correct time and date. Submit specimen in salivette collection device only. ?Other containers are not acceptable. Rule of 15 Treatment for Hypoglycemia (Low blood sugar) If your blood glucose is low (70 and below)*, follow the steps below to treat: Eat or drink something from the list below equal to 15 grams of carbohydrate (carb). Rest for 15 minutes Re-check your blood glucose. If it is still low, (below 70), repeat step 1 above. ? If your next meal is more than an hour away, you will need to eat one carbohydrate choice as a snack to keep your blood glucose from going low again. ?If you can't figure out why you have low blood glucose, call your healthcare provider, as your medicine may need to be adjusted. ?Always carry something with you to treat an insulin reaction. Use food from the list below. ? Foods equal to One Carbohydrate Choice (15 grams of carbohydrate): 3 Glucose ?tablets or 4 Dextrose tablets 4 ounces of fruit juice 5-6 ounces (about 1/2 can) of regular soda such as Coke or Pepsi ? 7-8 gummy or regular Life Savers ? 1 Tbsp. of sugar or jelly NOTE: If your blood sugar is less than 50, double the portion above for a total of 30 gm. ?Carbohydrate. ? Follow meal plan of 45-60 g of consistent carbohydrates at 3 meals each day and 15 g of carbohydrate at 1-2 snacks each day. Coding Level of Care Code Est Pt Level 4 (63997) Complex EM visit Add On G2211 Diagnoses Uncontrolled type 2 diabetes mellitus with hyperglycemia, with long-term current use of insulin E11.65; Z79.4 Abnormal dexamethasone suppression test R94.7 Morbid obesity E66.01 Dyslipidemia E78.5 Time Spent (min) 30
[2024-08-07 13:35] LABS: Glucose, Whole Blood 106 mg/dL (60-115)
--- OUTSIDE RECORDS SUMMARY | 2024-08-07 14:38 | XMS_ITS | Clinical Summary ---
Author Organization [facility] Facility Address [address] [place] [id number] Care Team Providers Care Senior Facilities Manager Name Role Phone Unavailable Primary Care Provider Unavailabl e Medications albuterol (2.5 MG/3ML) 0.083% nebulizer solution INHALE CONTENTS OF 1 VIAL VIA NEBULIZER EVERY 4 TO 6 HOURS NEEDED FOR SHORTNESS OF BREATH 1 Active atorvastatin (LIPITOR) 10 MG tablet Take 10 mg by mouth 1 (one) time each day 1 Active [facility] D3 125 MCG (5000 UT) capsule 1 Active clonazePAM (KlonoPIN) 0.5 MG tablet TAKE 1/2 (HALF) TABLET BY MOUTH AT BEDTIME NEEDED 1 Active Trulicity 1.5 MG/0.5ML solution pen-injector INJECT 1 PEN UNDER THE SKIN EVERY WEEK 1 Active furosemide (LASIX) 40 MG tablet Take 80 mg by mouth 2 (two) times a day 1 Active gabapentin (NEURONTIN) 100 MG capsule TAKE 1 CAPSULE (100 MG) BY MOUTH THREE TIMES DAILY 1 Active Toujeo SoloStar 300 UNIT/ML solution pen-injector 1 Active lisinopril (PRINIVIL,ZESTR IL) 20 MG tablet Take 20 mg by mouth 1 (one) time each day 1 Active Magnesium Oxide, Antacid, 500 MG capsule Take 1 capsule by mouth 1 (one) time each day 1 Active metFORMIN XR (GLUCOPHAGE-XR) 500 MG 24 hr tablet Take 1,000 mg by mouth 2 (two) times a day 1 Active metOLazone (ZAROXOLYN) 2.5 MG tablet 1 Active montelukast (SINGULAIR) 10 MG tablet TAKE 1 TABLET BY MOUTH IN THE EVENING EVERY DAY 1 Active omeprazole (PriLOSEC) [address] capsule Take by mouth 1 (one) time each day 1 Active potassium chloride (K-TAB) 20 MEQ CR tablet TAKE 2 TABLETS (40 MEQ TOTAL) BY MOUTH AT BEDTIME FOR 30 DAYS 1 Active Spiriva Respimat 2.5 MCG/ACT aerosol solution TAKE 2 PUFFS ONCE A DAY 1 Active traZODone (DESYREL) 50 MG tablet TAKE 1 TO 2 TABLETS BY MOUTH NEEDED FOR SLEEP AT BEDTIME 1 Active alpha tocopherol (VITAMIN E) 400 units capsule Take by mouth 1 (one) time each day 1 Active potassium chloride (KLOR-CON M20) 20 MEQ CR tablet Take 20 mEq by mouth 1 (one) time each day in the evening 1 Active Active Problems Problem Noted Date Diagnosed Date 2+ pitting edema 11/06/2020 Type 2 diabetes mellitus 11/06/2020 Renal disorder due to type 2 diabetes mellitus 0 10/11/2020 Family History Medical History Relation Comments Diabetes Father Heart attack Father Diabetes Maternal Grandmother Cancer Mother Aortic aneurysm Mother's Brother Cancer Mother's Sister Relation Status Comments Father Maternal Grandmother Mother Mother's Brother Mother's Sister Social History Tobacco Use Types Packs/Day Years Used Date Smoking Tobacco: Never Assessed Comments Unknown Sex and Gender Information Value Date Recorded Sex Assigned at Not on file Legal Sex Female 12:16 PM EST Gender Identity Not on file Sexual Orientation Not on file Plan of Treatment Health Maintenance Due Date Last Done Comments Breast Cancer Screening 1960 Colorectal Cancer Screening: Annual FOBT 2011 Colorectal Cancer Screening: Colonoscopy 2011 Colorectal Cancer Screening: Sigmoidoscopy 2011 Diabetes: Hemoglobin A1C 10/11/2020 Diabetes: Ophthalmology Exam 10/11/2020 Diabetes: Pedal Pulse Checked 10/11/2020 Diabetes: Sensory Foot Exam 10/11/2020 Diabetes: Visual Foot Exam 10/11/2020 Influenza Vaccine (#1) 2024 Hepatitis B Vaccine Aged Out No longe r eligible based on patient's age to complete this topic Pneumococcal Vaccine: Pediat rics (0 to 5 Years) and At-Risk Patients (6 to 64 Years) Aged Out No longer eligible b ased on patient's age to complete this topic Insurance MEDICAID MEDICAID
--- OUTSIDE RECORDS SUMMARY | 2024-08-07 14:38 | XMS_ITS | Clinical Summary ---
Author Organization [facility] Address [address] [place] [address] Care Team Providers Care Cook Chef Name Role Phone Unavailable Primary Care Provider Unavailabl e Social History Tobacco Use Types Packs/Day Years Used Date Smoking Tobacco: Never Assessed Sex and Gender Information Value Date Recorded Sex Assigned at Not on file Gender Identity Not on file Sexual Orientation Not on file Plan of Treatment Not on file
== END 2024-08-07 14:19 | disposition home or self-care (01) ==
PROVIDERS: PCP Nurse Practitioner Family; Visit Provider Student in an Organized Health Care Education/Training Program
DX: E11.65 Type 2 diabetes mellitus with hyperglycemia (principal); Z79.4 Long term (current) use of insulin; R94.7 Abnormal results of other endocrine function studies; E66.01 Morbid (severe) obesity due to excess calories; E78.5 Hyperlipidemia, unspecified
CPT/HCPCS: 99214; G2211

== ENCOUNTER → 2024-08-07 13:22 | Outpatient (BNVA) | payer OTHER, SELFPAY | PROVIDERS: PCP Nurse Practitioner Family; Visit Provider Student in an Organized Health Care Education/Training Program | DX: E11.65 Type 2 diabetes mellitus with hyperglycemia (principal); E66.01 Morbid (severe) obesity due to excess calories; E78.5 Hyperlipidemia, unspecified; R94.7 Abnormal results of other endocrine function studies; Z79.4 Long term (current) use of insulin; Z68.41 Body mass index [BMI] 40.0-44.9, adult | CPT/HCPCS: 82947; 99212 ==

== ENCOUNTER 2024-08-14 11:38 | Outpatient (AMB) | payer OTHER, SELFPAY ==
--- NOTE | 2024-08-14 12:58 | MHC.OFFWIV ---
Intake Vital Signs 08/14/24 12:59 Weight 239 lb BP 116/78 Blood Pressure Location Lt brachial Position Sitting Pulse 72 Pulse Source Pulse Oximeter Pulse Oximetry (%) 94 Oxygen Delivery Method Room Air Intake Visit Reasons: EP severe lower back pain mostly on LT side Intake Note: Patient here for lower back pain that started last Wednesday. Patient Tobacco Use Status: Current someday Tobacco user Allergies erythromycin base [From E-MYCIN] Allergy (Severe, Verified 08/14/24 13:03) GI PAIN-SEVERE carvedilol Allergy (Mild, Verified 08/14/24 13:03) upset stomach, sweats Do you need a note to return to daycare/school/sports/work: No HPI HPI Comments History of Present Illness Details 64 y/o female patient who presents to the walk in clinic with c/o Acute lower back pain for few days now. Denies injury or trauma. Denies numbness or tingling. Denies urinary or vaginal symptoms. She has been using Acetaminophen with no much relief. [facility] Medical History Uncontrolled type 2 diabetes mellitus with hyperglycemia, with long-term current use of insulin Chronic right heart failure History of pulmonary embolism (~02/2021) Pulmonary hypertension COPD (chronic obstructive pulmonary disease) Obstructive sleep apnea on CPAP Personal history of nicotine dependence DM type 2 (diabetes mellitus, type 2) (~09/2016) Dyslipidemia Anxiety Poor balance Urge incontinence Morbid obesity Tachycardia Surgical History History of endometrial ablation (~2003) History of esophagogastroduodenoscopy (EGD) (~2016) History of laparoscopic cholecystectomy (~2020) History of colonoscopy (~2015) History of cardiac cath History of carpal tunnel release (~2001) Family History Father Myocardial infarction Diabetes mellitus Mother Pancreatic cancer Maternal Grandfather Diabetes mellitus Maternal Aunt Pancreatic cancer Maternal Uncle AAA (abdominal aortic aneurysm) Daughter Substance use disorder Mental health disorder Social History Household Members: Family Household Members Other:: Granddaughter Housing: House Housing Other:: Granddaughter Are you a primary summer child caregiver to a significant other at home: No Do you presently have visiting nurse or other home services: No Alcohol intake: current Alcohol intake frequency: holidays/special occasions only Comment: patient rings appropriately Patient Tobacco Use Status: Current someday Tobacco user Years Smoked: (onset 19yo - 1/2ppd x 40years - 20pyh - quit in 2020) e-Cigarette/Vaping Use: Never Used Second Hand Smoke Exposure: No Substance Use Type: Marijuana service: No Current occupational status: disabled Cognitive needs: No Hearing needs: No Vision needs: No Review of Systems Const All systems reviewed & are unremarkable except as noted in HPI and below Physical Exam Vital Signs: Last Vital Signs Pulse 72 08/14/24 12:59 BP 116/78 08/14/24 12:59 Pulse Ox 94 08/14/24 12:59 Oxygen Delivery Method Room Air 08/14/24 12:59 Const General: cooperative and no acute distress; No comfortable Nutritional Appearance: obese morbidly obese Orientation/consciousness: patient oriented x3 Back/Spine/Pelvis Back: back tenderness Thoracic/Lumbar Spine: pain with thoraco-lumbar ROM, paraspinal muscle tenderness and lumbar spinal tenderness at L4 and at L5 Neuro General: patient oriented x3, gait normal (Walks with a slight limp) and moves all extremities Psych Speech and movement: Normal speech and movement present Assessment & Plan Assessment & Plan (1) Low back pain: Code(s): M54.50 - Low back pain, unspecified Qualifiers: Chronicity: acute Back pain laterality: midline Sciatica presence: without sciatica Qualified Code(s): M54.50 - Low back pain, unspecified Plan: Ice/Hot Rest Ordered Acetaminophen for pain relief. Medications: New lidocaine 5% leave on most painful area for up to 12 hrs 1 patch topical DAILY 30 ea 0RF M54.50 - Low back pain, unspecified acetaminophen 1,000 mg (2 x 500 mg) PO Q6H PRN 30 caps 0RF pain M54.50 - Low back pain, unspecified cyclobenzaprine 10 mg PO BEDTIME 14 tabs 0RF M54.50 - Low back pain, unspecified Coding Level of Care Code Est Pt Level 4 (65985) Diagnoses Acute midline low back pain without sciatica M54.50 Chronicity: acute Back pain laterality: midline Sciatica presence: without sciatica Time Spent (min) 20
[2024-08-14 12:59] VITALS: BP 116/78; PULSE 72; O2SAT 94
== END 2024-08-14 13:35 | disposition home or self-care (01) ==
PROVIDERS: PCP Nurse Practitioner Family; Visit Provider Nurse Practitioner Family
DX: M54.50 Low back pain, unspecified (principal)

== ENCOUNTER → 2024-08-14 11:38 | Outpatient (BNVA) | payer OTHER, SELFPAY | PROVIDERS: PCP Nurse Practitioner Family | DX: M54.50 Low back pain, unspecified (principal) | CPT/HCPCS: 99212 ==

== ENCOUNTER 2024-08-24 15:05 | Outpatient (REF) | payer OTHER, SELFPAY ==
--- NOTE | ~2024-08-24 | CT_ITS ---
CLINICAL HISTORY: Z87.891 - Personal history of nicotine dependence CT lung cancer screening (LDCT) Comparison: None Technique: Axial CT images of the chest using low-dose technique. Referring provider counseled the patient on shared decision-making for LDCT screening. Additional counseling was provided on smoking cessation. Effective radiation dose total: DLP 57.6 mGycm, CTDIvol 1.9 mGy. Findings: Lung: There are no solid or semi solid lesions. Coronary artery calcifications: Mild Limited upper abdomen: Unremarkable Other: None Impression: Category 1: Normal Category 1: Normal; continue annual screening Category 2: Benign appearance or behavior, continue annual screening Category 3: Probably benign, [address] recommended Category 4A: Suspicious, [address] recommended; may consider PET/CT Category 4B: Suspicious, Additional diagnostics and/or tissue sampling recommended Category 4X: Suspicious, Additional diagnostics and/or tissue sampling recommended Category 0: Recalls (incomplete screen due to Incomplete coverage, Noise, Respiratory motion, Expiration, Obscured by acute abnormality) This document has been electronically signed by: Jay Lozano MD on 08/25/2024 08:25:27
--- OUTSIDE RECORDS SUMMARY | 2024-08-24 16:09 | XMS_ITS | Clinical Summary ---
Author Organization [facility] Facility Address [address] [place] [id number] Care Team Providers Care Electrical Solderer Name Role Phone Unavailable Primary Care Provider [...]
--- OUTSIDE RECORDS SUMMARY | 2024-08-24 16:09 | XMS_ITS | Clinical Summary ---
Author Organization [facility] Address [address] [place] [address] Care Team Providers Care Utility Agent Name Role Phone Unavailable Primary Care Provider Unavailabl e Social History Tobacco Use Types Packs/Day Years Used Date Smoking Tobacco: Never Assessed Sex and Gender Information Value Date Recorded Sex Assigned at Not on file Gender Identity Not on file Sexual Orientation Not on file Plan of Treatment Not on file
== END 2024-08-24 15:06 | disposition home or self-care (01) ==
LOC: HO.CT 15:05
PROVIDERS: PCP Nurse Practitioner Family; Visit Provider Physician Assistant Medical
DX: Z12.2 Encounter for screening for malignant neoplasm of respiratory organs (principal); Z87.891 Personal history of nicotine dependence
CPT/HCPCS: 71271

== ENCOUNTER → 2024-08-24 15:08 | Outpatient (BNV) | payer OTHER, SELFPAY | PROVIDERS: PCP Nurse Practitioner Family; Visit Provider Specialist | DX: Z87.891 Personal history of nicotine dependence (principal) | CPT/HCPCS: 71271 ==

== ENCOUNTER 2024-10-10 09:54 | Outpatient (REF) | payer OTHER, SELFPAY ==
--- OUTSIDE RECORDS SUMMARY | 2024-10-10 11:28 | XMS_ITS | Clinical Summary ---
Author Organization [facility] Facility Address [address] [place] [id number] Care Team Providers Care Medicare Sales Executive Name Role Phone Unavailable Primary Care Provider [...] Diabetes: Visual Foot Exam 10/11/2020 Influenza Vaccine (Season Ended) 2025 Hepatitis B Vaccine Aged Out No longe r eligible based on patient's age to complete this topic Pneumococcal Vaccine: Pediat rics (0 to 5 Years) and At-Risk Patients (6 to 64 Years) Aged Out No longer eligible b ased on patient's age to complete this topic Insurance MEDICAID MEDICAID
--- OUTSIDE RECORDS SUMMARY | 2024-10-10 11:28 | XMS_ITS | Clinical Summary ---
Author Organization [facility] Address [address] [place] [address] Care Team Providers Care Roofing Sales Representative Name Role Phone Unavailable Primary Care Provider Unavailabl e Social History Tobacco Use Types Packs/Day Years Used Date Smoking Tobacco: Never Assessed Sex and Gender Information Value Date Recorded Sex Assigned at Not on file Gender Identity Not on file Sexual Orientation Not on file Plan of Treatment Not on file
--- OUTSIDE RECORDS SUMMARY | 2024-10-10 11:28 | XMS_ITS ---
Author Organization [facility] Care Team Providers Care Closing Machine Operator Name Role Phone Eleanor Morales Unavailable Unavailable Shira Wilder Unavailable Unavailable Jimenez Duran Unavailable Unavailable Allergies and adverse reactions No Known Allergies Care Team Name Role Address Phone Organization Dates Shira Wilder PCP [address] [address], [place], [address], [facility] (Office): : [facility] 03/12/2021 - 03/13/2021 [place], [address], [facility] (Office): : [facility] 03/12/2021 - 03/13/2021 Jimenez Duran Attending Physician [address] [place] [address], [place], [address], [facility] (Office): : [facility] 03/12/2021 - 03/13/2021 Problems Problem # Description Date of onset Resolved Date Code CodeSystem Concern Status 1 ACUTE ON CHRONIC DIASTOLIC (CONGESTIVE) HEART FAILURE 03/12/[id number] active Reason for Referral No Reasons for Referral Entered Social History Social History Observation Description Start Date End Date Code Code System Current Smoking Status Tobacco smoking consumption unknown [id number] SNOMED CT Sex Assigned At Female 1960 [id number] [facility]
[2024-10-10 13:08] LABS: MANUAL DIFF FLAG NO
[2024-10-10 13:33] LABS: Basophils Percent Auto 0.3 % (0-2); Eosinophils Absolute Auto 0.2 X10*3/uL (0.0-0.4); Eosinophils Percent Auto 2.1 % (0-4); Hematocrit 47.5 % (37.0-47.0); Hemoglobin 15.8 g/dl (12.0-16.0); Imm Gran Abs Auto 0.05 X10*3/uL (0.00-0.03); Imm Gran Pct Auto 0.6 % (0.0-0.4); Lymphocytes Percent Auto 23.1 % (20-40); Mean Corpuscular HGB Conc 33.3 g/dl (31.0-35.0); Mean Corpuscular Volume 87.3 fL (80.0-98.0); Mean Platelet Volume 10.6 fL (9.4-12.3); Monocytes Absolute Auto 0.5 X10*3/uL (0.1-1.2); Monocytes Percent Auto 5.8 % (2-11); Neutrophils Percent Auto 68.1 % (45-73); Platelet Count 185 X10*3/uL (160-400); Red Blood Count 5.44 X10*6/uL (4.20-5.50); Red Cell Distribution Width 14.8 % (11.0-16.0); White Blood Count 8.9 X10*3/uL (4.8-10.8)
[2024-10-10 13:37] LABS: Platelet Count 210 X10*3/uL (160-400)
[2024-10-10 14:06] LABS: Erythrocyte Sedimentation Rate 7 MM/HR (0-20)
[2024-10-10 14:22] LABS: Alanine Aminotransferase 19 U/L (0-31); Alkaline Phosphatase 141 U/L (39-117); Anion Gap 9 (12-20); Aspartate Amino Transferase 17 U/L (5-31); Bilirubin Total 0.5 mg/dL (0.0-1.0); Blood Urea Nitrogen 13 mg/dL (9-16); C Reactive Protein 0.44 mg/dL (< or = 0.50); Calcium 8.8 mg/dL (8.4-10.2); Carbon Dioxide 27 mmol/L (22-29); Chloride 111 mmol/L (96-108); Cholesterol 147 mg/dL (<200); Estimated Glomerular Filt Rate > 60; Glucose Fasting 102 mg/dL (60-99); Glucose Random 102 mg/dL (60-115); HDL Cholesterol 43 mg/dL (>40); LDL Cholesterol Calculated 84 mg/dL (<100); Sodium 143 mmol/L (135-145); Total Protein 6.5 g/dL (6.5-8.0); Triglycerides 104 mg/dL (<150); Uric Acid 6.5 mg/dL (2.4-5.7)
[2024-10-10 14:41] LABS: TSH reflex Free T4 2.32 uIU/mL (0.32-4.0); Vitamin D 25-OH Total 55.2 ng/mL (>30)
== END 2024-10-10 09:55 | disposition home or self-care (01) ==
LOC: HO.HMGCLDS 09:54
PROVIDERS: Student in an Organized Health Care Education/Training Program; PCP Nurse Practitioner Family; Referring Provider Student in an Organized Health Care Education/Training Program; Visit Provider Nurse Practitioner Family
DX: Z00.01 Encounter for general adult medical examination with abnormal findings (principal); M1A.09X0 Idiopathic chronic gout, multiple sites, without tophus (tophi); E11.65 Type 2 diabetes mellitus with hyperglycemia; Z79.4 Long term (current) use of insulin
CPT/HCPCS: 36415; 80053; 80061; 82306; 84443; 84550; 85025; 85049; 85652; 86140

== ENCOUNTER 2024-11-09 12:57 | Outpatient (AMB) | payer OTHER, SELFPAY ==
--- NOTE | 2024-11-09 12:59 | A.OFFVIS_ITS ---
Vital Signs 3 11/09/24 13:00 Height 5 ft 2 in Weight 231 lb 7.766 oz BMI 42.3 BP 110/62 Blood Pressure Location Lt brachial Position Sitting Pulse 86 Pulse Source Pulse Oximeter Pulse Oximetry (%) 96 Oxygen Delivery Method Room Air Intake Visit Reasons: DM, Cushings Intake Note: Patient present today for Type 2 Diabetes Mellitus and Cushings. Last Diabetic eye exam: 08/2024 Last Podiatry Visit: Doesn't have one Random Glucose: 195 mg/dl HgA1C: 6.0% Kerfer Machine Operator Required: No Accompanied by: Self / Same As Patient Allergies erythromycin base [From E-MYCIN] Allergy (Severe, Verified 11/09/24 13:07) GI PAIN-SEVERE carvedilol Allergy (Mild, Verified 11/09/24 13:07) upset stomach, sweats Medication List - Last Reconciled 11/09/24 by Rhiannon Mathews MD acetaminophen 1,000 mg (2 x 500 mg) PO Q6H PRN albuterol sulfate 2.5 mg (3 mL) inhalation QID PRN allopurinol 400 mg (2 x 200 mg) PO DAILY 90 days apixaban (Eliquis) 5 mg PO BID atorvastatin 20 mg PO BEDTIME blood-glucose sensor (BLOVESStyle Ines 3 Plus Sensor device) As directed every 14 days blood-glucose,tumbling barrel painter,cont (FreeStyle Ines 3 [place]) As directed buspirone 15 mg PO BID 90 days cholecalciferol (vitamin D3) 125 mcg PO DAILY colchicine 0.6 mg PO DAILY PRN cyclobenzaprine 10 mg PO BEDTIME flash glucose scanning reader (FreeStyle Ines 2 [place]) As directed flash glucose sensor (FreeStyle Ines 2 Sensor kit) DIRECTED CHANGE EVERY 14 DAYS gabapentin 300 mg PO BID 30 days hydroxyzine HCl 50 mg PO BEDTIME PRN 30 days insulin glargine U-300 conc (Toujeo SoloStar U-300 Insulin) 12 units (0.04 mL) subcut BEDTIME ketoconazole 2% 1 appl topical BID PRN lidocaine 5% 1 patch topical DAILY montelukast 10 mg PO BEDTIME nebulizers Nebulizer and supplies to use as directed for updraft treatments omeprazole 20 mg PO DAILY 90 days pen needle, diabetic (BD Janay 2nd Gen Pen Needle) As directed 1X DAILY selexipag (Uptravi) 0 ea PO sildenafil (pulm.hypertension) 40 mg PO TID spironolactone 25 mg PO DAILY tirzepatide (Mounjaro) 5 mg (0.5 mL) subcut QWEEK torsemide 60 mg PO DAILY Ventolin HFA 90 mcg/actuation (albuterol sulfate) 2 puffs inhalation Q4H PRN 30 days NS HPI Comments Details: 64-year-old female with a past medical history of type 2 diabetes, hypertension, CHF, pulmonary hypertension, JACKSON presents today for follow up.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 Type 2 DM HPI She is diagnosed with type 2 diabetes in September 2016. Current meds Mounjaro 5 mg weekly Toujeo 12 units at bedtime Prior meds Ozempic 2 mg had lots diarrhea Trulicity : tolerated it fine Jardiance: felt weak and hypoglycemia Medifocuse 2 downloaded from October 27 to November 2024 Time CGM active 41% Average glucose 107 mg/dL G AR: Could not be calculated Glucose variability 25.1% Within target range 92% High 2% Very high 0% Low 2% Very low 4% Interpretation: Having hypoglycemia overnight between 03:00 to 06:00. Otherwise within target range. Hypoglycemia: had a 68 mg/dl last week, did have symptoms, no other episodes Hemoglobin A1c is 7.9%. 07/07/24 Random Glucose: 106 mg/dl at 11 am ate a yogurt and banana Last Diabetic eye exam: 07/30/24 Retinopathy: no Last Podiatry Visit: Doesn't have one Neuropathy: no symptoms history of microalbuminuria but hasnt been checked again now in 3 years, last 2021. no heart attack or stoke Diet She is monitoring portion sizes. She avoids snacking between meals. 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 Dex suppression 12/22 cortisol 2.1, ACTH <5, dex level good 06/2020 24 hr urine cortisol 3.4 09/2020: cortisol was 2.2 ACTH <5, dex level 417 09/2020 salivary cortisol 0.08 Complains of easy bruising. No proximal muscle weakness. Did not do the salivary cortisol test that was ordered last visit in August 2024. Physical exam: Constitutional: Alert, in no distress. Neck: Supple, Full range of motion. No lymphadenopathy. No palpable thyroid masses. Respiratory: Clear to auscultation. Cardiovascular: S1 S2 regular. Systolic murmur. Foot exam 07/29 Right foot: Warm and well perfused. No clubbing, cyanosis or edema. DP pulse 3+. Decreased vibratory sensation. Intact sensation to monofilament. No open wounds. Left foot: Warm and well perfused. No clubbing, cyanosis or edema. DP pulse 3+. Decreased vibratory sensation. Intact sensation to monofilament. No open wounds. Laboratory Tests 12/30/19 06/14/20 06/19/20 08:26 10:32 11:58 Creatinine Estimated GFR Hgb A1c (Clinic) 10.2 H AST ALT Albumin Triglycerides Cholesterol LDL Cholesterol, Calc HDL Cholesterol Cortisol 2.1 ACTH <5 L Urine Total Volume 1125 Ur 24 Hour Volume 1125 Urine Creatinine Ur Creatinine mg/dL 36.21 Ur Creatinine 24 Hour 0.45 L Urine Microalbumin Microalb/Creat Ratio Ur Free Cortisol 24 Hr 3.4 L Saliva Cortisol Dexamethasone 09/28/20 09/28/20 10/15/20 08:30 Unknown 08:59 Creatinine Estimated GFR Hgb A1c (Clinic) AST ALT Albumin Triglycerides Cholesterol LDL Cholesterol, Calc HDL Cholesterol Cortisol 2.2 L 19.9 ACTH <5 L 23 Urine Total Volume Ur 24 Hour Volume Urine Creatinine Ur Creatinine mg/dL Ur Creatinine 24 Hour Urine Microalbumin Microalb/Creat Ratio Ur Free Cortisol 24 Hr Saliva Cortisol 0.08 Dexamethasone 417 12/02/21 10/27/22 06/15/23 11:12 15:18 13:47 Creatinine Estimated GFR Hgb A1c (Clinic) 8.6 H 7.1 H AST ALT Albumin Triglycerides Cholesterol LDL Cholesterol, Calc HDL Cholesterol Cortisol ACTH Urine Total Volume Ur 24 Hour Volume Urine Creatinine 109.34 Ur Creatinine mg/dL Ur Creatinine 24 Hour Urine Microalbumin 1268.0 Microalb/Creat Ratio 1159.6 Ur Free Cortisol 24 Hr Saliva Cortisol Dexamethasone 12/28/23 04/10/24 07/07/24 11:16 09:40 13:43 Creatinine 0.98 Estimated GFR 58 Hgb A1c (Clinic) 7.3 H 7.9 H AST 15 ALT 20 Albumin 4.1 Triglycerides 109 Cholesterol 154 LDL Cholesterol, Calc 89 HDL Cholesterol 44 Cortisol ACTH Urine Total Volume Ur 24 Hour Volume Urine Creatinine Ur Creatinine mg/dL Ur Creatinine 24 Hour Urine Microalbumin Microalb/Creat Ratio Ur Free Cortisol 24 Hr Saliva Cortisol Dexamethasone Laboratory Tests 10/10/24 10/10/24 10:05 10:08 Hgb 15.8 Hct 47.5 H Plt Count 210 Sodium 143 Potassium 4.0 Creatinine 0.87 Estimated GFR > 60 Fasting Glucose 102 H AST 17 ALT 19 Triglycerides 104 Cholesterol 147 LDL Cholesterol, Calc 84 HDL Cholesterol 43 TSH 2.32 PFSH Medical History Uncontrolled type 2 diabetes mellitus with hyperglycemia, with long-term current use of insulin Chronic right heart failure History of pulmonary embolism (~02/2021) Pulmonary hypertension COPD (chronic obstructive pulmonary disease) Obstructive sleep apnea on CPAP Personal history of nicotine dependence DM type 2 (diabetes mellitus, type 2) (~09/2016) Dyslipidemia Anxiety Poor balance Urge incontinence Morbid obesity Tachycardia Surgical History History of endometrial ablation (~2003) History of esophagogastroduodenoscopy (EGD) (~2016) History of laparoscopic cholecystectomy (~2020) History of colonoscopy (~2015) History of cardiac cath History of carpal tunnel release (~2001) Family History Father Myocardial infarction Diabetes mellitus Mother Pancreatic cancer Maternal Grandfather Diabetes mellitus Maternal Aunt Pancreatic cancer Maternal Uncle AAA (abdominal aortic aneurysm) Daughter Substance use disorder Mental health disorder Social History Household Members: Family Household Members Other:: Granddaughter Housing: House Housing Other:: Granddaughter Are you a primary transition of care specialist to a significant other at home: No Do you presently have visiting nurse or other home services: No Alcohol intake: current Alcohol intake frequency: holidays/special occasions only Comment: patient rings appropriately Patient Tobacco Use Status: Current someday Tobacco user Years Smoked: (onset 19yo - 1/2ppd x 40years - 20pyh - quit in 2019) e-Cigarette/Vaping Use: Never Used Second Hand Smoke Exposure: No Substance Use Type: Marijuana service: No Current occupational status: disabled Cognitive needs: No Hearing needs: No Vision needs: No Physical Exam Vital Signs: Last Vital Signs Pulse 86 11/09/24 13:00 BP 110/62 11/09/24 13:00 Pulse Ox 96 11/09/24 13:00 Oxygen Delivery Method Room Air 11/09/24 13:00 BMI result Body Mass Index 42.3 Office Procedures Glucose Monitoring Details Details: See HPI 86725 - Glucose monitoring, continuous-physician I&R Procedure code (CPT) selection complete Results AMB Hemoglobin A1c 2 AMB Hemoglobin A1c 6.0 % Last Edit by ELI Pappas on 11/09/24 13:19 Results Reviewed Results Reviewed: Laboratory Last Values Glucose (Clinic) 195 mg/dL (60-115) H 11/09/24 13:10 Assessment & Plan Assessment & Plan (1) Uncontrolled type 2 diabetes mellitus with hyperglycemia, with long-term current use of insulin: Code(s): E11.65 - Type 2 diabetes mellitus with hyperglycemia; Z79.4 - [facility] (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 Last A1c from 11/09/2024 POC is 6% down from July 2024 was 7.9% , she is currently within goal of less than 7%. CGM data downloaded which shows blood sugars are mostly within target range, she is having hypoglycemic episodes overnight. I will decrease her Toujeo. We will go down from 12 units to 8 units. She does have some postprandial spike after breakfast. She only lost 10 lb since starting the Mounjaro in July 2024. I will bump up the Mounjaro to 7.5 mg weekly. Given history of microalbuminuria, no recent levels, I will repeat these. I asked her to repeat this at prior visit as well, she did not do it. In the future visits I will also plan to start her on Jardiance or Farxiga. In the past apparently she had hypoglycemia when she was started on Jardiance but I told her and reassured her that we will lower down her insulin when we start an SGLT2 inhibitor. Plan: -increase Mounjaro to 7.5 mg weekly -lower Toujeo from 12 units to 8 units daily at bedtime -she is not exercising, encouraged to walk at least 20 minutes daily and start lifting some weights if she can not walk much. -advised to bring CGM tumbling barrel painter to every visit , switching her to Ines 3+ sensor -hypoglycemia education done -up-to-date on eye visit, no retinopathy Foot exam done on visit in July 2024, unremarkable, she does not see Podiatry -follow up in 8 weeks as we are actively making changes due to hypoglycemic episodes (2) Abnormal dexamethasone suppression test: Code(s): R94.7 - Abnormal results of other endocrine function studies Category: Medical Plan: She has physical findings suggestive of [place] like plethora, visible vessels, supraclavicular fat pad and dorsocervical fat pad. Dex suppression 12/22 cortisol 2.1, ACTH <5, dex level good 06/2020 24 hr urine cortisol 3.4 09/2020: cortisol was 2.2 ACTH <5, dex level 417 09/2020 salivary cortisol 0.08 I think there is a low suspicion as dexamethasone suppression tests were equivocal and then she had normal salivary cortisol and 24 hour urine cortisol results. Plus she is losing weight on the Mounjaro and her diabetes is not that uncontrolled. She has not had any fractures. Regardless we will do salivary cortisol x2. If abnormal, we will proceed to also getting 24 hour urine test. I asked her to get these at last visit, still not done. Reiterated to the patient to get this testing done. Plan: -ordered salivary cortisol tests X 2 (3) Morbid obesity: Code(s): E66.01 - Morbid (severe) obesity due to excess calories Category: Medical Plan: BMI 42. 3kg per m2 Current weight 231 lb down from 234 lb last visit in August 2024 Weight down from 242 lb in July 2024. Plan: -advised to start walking at least 20 minutes daily and start lifting weights 2- 3 days a week -increase Mounjaro to 7.5 mg weekly (4) Dyslipidemia: Code(s): E78.5 - Hyperlipidemia, unspecified Category: Medical Plan: LDL level from April 2024 noted to be at 89 mg/dL, LDL goal less than 70 mg/dL. Most recent LDL again repeated in October 2024 elevated at 84 mg/dL. She is currently on atorvastatin 20 mg daily. I discussed with her the need for going up on the atorvastatin, however she would like to wait for improvement with dietary changes and weight loss.. Plan: -plan to repeat lipid panel in 3-6 months at the end of 2024 -continue atorvastatin 20 mg daily Plan I spent 30 minutes in reviewing the record, seeing the patient and documenting in the medical record. Orders: Orders 2 AMB Hemoglobin A1c Today E11.65 - Type 2 diabetes mellitus with hyperglycemia, Z13.9 - Encounter for screening, unspecified, Z79.4 - terminal carman (current) use of insulin AMB Glucose Monitoring Today E11.65 - Type 2 diabetes mellitus with hyperglycemia, Z79.4 - terminal carman (current) use of insulin Medications: New 2 tirzepatide (Mounjaro) 7.5 mg (0.5 mL) subcut QWEEK 6 mL 3RF Changed 2 From pen needle, diabetic (BD Janay 2nd Gen Pen Needle) As directed 1X DAILY 50 ea 11RF E11.9 - Type 2 diabetes mellitus without complications To pen needle, diabetic As directed 1X DAILY 50 ea 11RF E11.9 - Type 2 diabetes mellitus without complications From insulin glargine U-300 conc (Toujeo SoloStar U-300 Insulin) 12 units (0.04 mL) subcut BEDTIME 4.5 mL 3RF E11.9 - Type 2 diabetes mellitus without complications To insulin glargine U-300 conc (Toujeo SoloStar U-300 Insulin) 8 units (0.0267 mL) subcut BEDTIME 4.5 mL 3RF E11.9 - Type 2 diabetes mellitus without complications Discontinued 2 tirzepatide (Mounjaro) Discontinued Reason: Doctor's Order 5 mg (0.5 mL) subcut QWEEK 6 mL 3RF Patient Instructions: Increase Mounjaro to 7.5 mg weekly Decrease Toujeo to 8, if you start having morning sugars greater than 160 mg/dl you can increase Toujeo to 10 units Rule of 15 Treatment for Hypoglycemia (Low blood sugar) If your blood glucose is low (70 and below)*, follow the steps below to treat: Eat or drink something from the list below equal to 15 grams of carbohydrate (carb). Rest for 15 minutes Re-check your blood glucose. If it is still low, (below 70), repeat step 1 above. ? If your next meal is more than an hour away, you will need to eat one carbohydrate choice as a snack to keep your blood glucose from going low again. ?If you can't figure out why you have low blood glucose, call your healthcare provider, as your medicine may need to be adjusted. ?Always carry something with you to treat an insulin reaction. Use food from the list below. ? Foods equal to One Carbohydrate Choice (15 grams of carbohydrate): 3 Glucose ?tablets or 4 Dextrose tablets 4 ounces of fruit juice 5-6 ounces (about 1/2 can) of regular soda such as Coke or Pepsi ? 7-8 gummy or regular Life Savers ? 1 Tbsp. of sugar or jelly NOTE: If your blood sugar is less than 50, double the portion above for a total of 30 gm. ?Carbohydrate. ? Follow meal plan of 45-60 g of consistent carbohydrates at 3 meals each day and 15 g of carbohydrate at 1-2 snacks each day. Do salivary cortisol test 2 samples Salivary cortisol collection instructions Specimen requirement Collect 1 mL or more of Saliva/fully saturated swab. Do not eat for 60 minutes prior to collecting specimen. Do not consume alcohol 12 hours prior to collecting specimen. Do not brush teeth immediately before collecting specimen as gums may bleed in contaminated specimen causing a falsely elevated result. Rinse mouth thoroughly with water 10 minutes before collecting specimen. Recommend collection time is generally between 11 PM and 1 AM. Be sure to clearly label each tube collected with correct date and time. Specimen visibly contaminated with blood, cellular debris, food particles or mucus must be recollected. Specimen collection 1. ?Label the exterior tube after salivette collection device using waterproof pen with your [patient] first and last name as well as date and time collected. 2. ?Remove the stopper of the container to expose the swab. ?Do not remove the insert from the tube. ?This is necessary for processing the specimen. 3. ?Place swab directly into the mouth by tipping the tube so that the swab falls into the mouth. The swab should be placed under the tongue or allow to move freely across the tongue. ?Do not place a swab between cheek and gum. ?Gently chewing the swab is acceptable. 4. ?Keep the swab in your mouth for 2 to 3 minutes. ?Be sure the swab is completely saturated with saliva; this will ensure that enough volume is collected. 5. ?Return the swab back into the insert. ?Do not touch the swab with the fingers. ?Do not remove the insert from the tube. 6. ?Replace the stopper, ensuring that the cap is tight [the cap will click when inserted properly] 7. ?Return salivette collection device to the lab. Preparation instruction If multiple specimens are submitted, ensure that all tubes are clearly labeled with correct time and date. Submit specimen in salivette collection device only. ?Other containers are not acceptable. Switch to Apparity, please call us for educator appointment if you need help with it Coding Level of Care Code Est Pt Level 4 (83568) Diagnoses Uncontrolled type 2 diabetes mellitus with hyperglycemia, with long-term current use of insulin E11.65; Z79.4 Abnormal dexamethasone suppression test R94.7 Morbid obesity E66.01 Dyslipidemia E78.5 CPT Codes Details - CPT: 48675 - Glucose monitoring, continuous-physician I&R ([id number]) Time Spent (min) 30
[2024-11-09 13:00] VITALS: BP 110/62; PULSE 86; O2SAT 96; BMI 42.3
[2024-11-09 13:14] LABS: Glucose, Whole Blood 195 mg/dL (60-115)
--- OUTSIDE RECORDS SUMMARY | 2024-11-09 14:04 | XMS_ITS | Clinical Summary ---
Author Organization [facility] Address [address] [place] [address] Care Team Providers Care Fifth Grade Teacher Name Role Phone Unavailable Primary Care Provider Unavailabl e Social History Tobacco Use Types Packs/Day Years Used Date Smoking Tobacco: Never Assessed Sex and Gender Information Value Date Recorded Sex Assigned at Not on file Gender Identity Not on file Sexual Orientation Not on file Plan of Treatment Not on file
--- OUTSIDE RECORDS SUMMARY | 2024-11-09 14:04 | XMS_ITS | Clinical Summary ---
Author Organization [facility] Facility Address [address] [place] [id number] Care Team Providers Care House Wirer Name Role Phone Unavailable Primary Care Provider [...] Colonoscopy 2011 Colorectal Cancer Screening: Sigmoidoscopy 2011 Pneumococcal Vaccine: 50+ Ye ars (1 of 1 - PCV) 2012 Diabetes: Hemoglobin A1C 10/11/2020 Diabetes: Ophthalmology Exam 10/11/2020 Diabetes: Pedal Pulse Checked 10/11/2020 Diabetes: Sensory Foot Exam 10/11/2020 Diabetes: Visual Foot Exam 10/11/2020 Influenza Vaccine (Season Ended) 2025 Hepatitis B Vaccine Aged Out No longe r eligible based on patient's age to complete this topic [place] [id number]
== END 2024-11-09 13:28 | disposition home or self-care (01) ==
LOC: HO.ENCR 12:58
PROVIDERS: PCP Nurse Practitioner Family; Visit Provider Student in an Organized Health Care Education/Training Program
DX: E11.65 Type 2 diabetes mellitus with hyperglycemia (principal); Z79.4 Long term (current) use of insulin; R94.7 Abnormal results of other endocrine function studies; E66.01 Morbid (severe) obesity due to excess calories; E78.5 Hyperlipidemia, unspecified; Z13.9 Encounter for screening, unspecified
CPT/HCPCS: 95251; 99214

== ENCOUNTER 2024-11-09 13:36 | Outpatient (REF) | payer OTHER, SELFPAY ==
--- NOTE | ~2024-11-09 | MM_ITS ---
EXAMINATION: DXA BONE DENSITY AXIAL HISTORY: E55.9 - Vitamin D deficiency, unspecified TECHNIQUE: [email or web address] Dual energy absorptiometry (DEXA) of the lumbar spine, total left hip, and femoral neck was performed. COMPARISON: There are no prior studies for comparison. FINDINGS: The bone mineral density of the lumbar spine is 1.139 with a T-score of -0.3, and a Z-score of -0.1. This is indicative of normal bone mineral density. The bone mineral density of the left total hip is 0.997 with a T-score of -0.1, and a Z-score of 0.1. This is indicative of normal bone mineral density. The bone mineral density of the left femoral neck is 0.857 with a T-score of -1.3, and a Z-score of -0.7. This is indicative of osteopenia. FRACTURE RISK: The FRAX index suggests a risk of major osteoporotic fracture of 6.9%, and of hip fracture 0.9%. MM/XR DEXA axial skeleton IMPRESSION: Based on bone mineral density, and according to World Health Organization (WHO) criteria, the diagnosis is consistent with osteopenia. All bone density values are in grams per centimeter squared (g/cm2). Statistically, 68% of repeat scans fall within 1 SD (+/- 0.010 g/cm2 for AP spine L1-L4) and 1 SD (+/- 0.012 g/cm2 for femur total) FRAX is a trademark of the [employer]'s [employer] [facility] Metabolic Bone Disease, a World Health Organization (WHO) Collaborating Center. Electronically signed by: Chalo Martinez MD 11/09/2024 02:29 PM EDT
--- OUTSIDE RECORDS SUMMARY | 2024-11-09 14:36 | XMS_ITS | Clinical Summary ---
Author Organization [facility] Address [address] [place] [address] Care Team Providers Care Laborer Drying Department Name Role Phone Unavailable Primary Care Provider Unavailabl e Social History Tobacco Use Types Packs/Day Years Used Date Smoking Tobacco: Never Assessed Sex and Gender Information Value Date Recorded Sex Assigned at Not on file Gender Identity Not on file Sexual Orientation Not on file Plan of Treatment Not on file
--- OUTSIDE RECORDS SUMMARY | 2024-11-09 14:37 | XMS_ITS | Clinical Summary ---
Author Organization [facility] Facility Address [address] [place] [id number] Care Team Providers Care Barrel Bridge Assembler Name Role Phone Unavailable Primary Care Provider [...]
== END 2024-11-09 13:37 | disposition home or self-care (01) ==
LOC: HO.MAMMO 13:36
PROVIDERS: PCP Nurse Practitioner Family; Visit Provider Nurse Practitioner Family
DX: Z12.31 Encounter for screening mammogram for malignant neoplasm of breast (principal); Z13.820 Encounter for screening for osteoporosis; Z78.0 Asymptomatic menopausal state; E55.9 Vitamin D deficiency, unspecified
CPT/HCPCS: 77063; 77067; 77080; 82947; 83036; 99212

== ENCOUNTER → 2024-11-09 14:00 | Outpatient (BNV) | payer OTHER, SELFPAY | PROVIDERS: PCP Nurse Practitioner Family; Visit Provider Radiology Diagnostic Radiology | DX: E28.39 Other primary ovarian failure (principal) | CPT/HCPCS: 77080 ==

== ENCOUNTER 2024-12-15 12:06 | Outpatient (REF) | payer OTHER, SELFPAY ==
--- OUTSIDE RECORDS SUMMARY | 2024-12-15 12:52 | XMS_ITS | Clinical Summary ---
Author Organization [facility] Address [address] [place] [address] Care Team Providers Care Engine Mechanic Name Role Phone Unavailable Primary Care Provider Unavailabl e Social History Tobacco Use Types Packs/Day Years Used Date Smoking Tobacco: Never Assessed Sex and Gender Information Value Date Recorded Sex Assigned at Not on file Gender Identity Not on file Sexual Orientation Not on file Plan of Treatment Not on file
[2024-12-15 13:21] LABS: Hematocrit 50.1 % (37.0-47.0); Hemoglobin 16.5 g/dl (12.0-16.0); Mean Corpuscular HGB Conc 32.9 g/dl (31.0-35.0); Mean Corpuscular Hemoglobin 28.6 pg (27.0-33.0); Mean Corpuscular Volume 86.8 fL (80.0-98.0); Mean Platelet Volume 10.3 fL (9.4-12.3); Platelet Count 219 X10*3/uL (160-400); Red Blood Count 5.77 X10*6/uL (4.20-5.50); Red Cell Distribution Width 14.4 % (11.0-16.0); White Blood Count 9.7 X10*3/uL (4.8-10.8)
== END 2024-12-15 12:07 | disposition home or self-care (01) ==
LOC: HO.HMGCLR 12:06
PROVIDERS: PCP Nurse Practitioner Family; Visit Provider Internal Medicine Pulmonary Disease
DX: I27.20 Pulmonary hypertension, unspecified (principal)
CPT/HCPCS: 36415; 85027

== ENCOUNTER 2025-01-04 11:36 | Outpatient (REF) | payer OTHER, SELFPAY ==
--- OUTSIDE RECORDS SUMMARY | 2025-01-04 12:20 | XMS_ITS | Clinical Summary ---
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
--- OUTSIDE RECORDS SUMMARY | 2025-01-04 12:20 | XMS_ITS | Clinical Summary ---
Author Organization [facility] Facility Address [address] [place] [id number] Care Team Providers Care Creative Services Manager Name Role Phone Unavailable Primary Care [...]
[2025-01-04 13:33] LABS: Hemoglobin 19.0 g/dl (12.0-16.0); Mean Corpuscular HGB Conc 33.2 g/dl (31.0-35.0); Mean Corpuscular Hemoglobin 28.5 pg (27.0-33.0); Mean Corpuscular Volume 85.8 fL (80.0-98.0); NRBC Abs Auto 0.000 X10*3/uL (0.0-0.012); NRBC Pct Auto 0.0 /100WBC (0.0-0.2); Platelet Count 253 X10*3/uL (160-400); Red Blood Count 6.67 X10*6/uL (4.20-5.50); White Blood Count 11.7 X10*3/uL (4.8-10.8)
[2025-01-04 13:41] LABS: Hematocrit 57.2 % (37.0-47.0)
[2025-01-04 14:20] LABS: Microalbum/Creatinine Ratio Ur 61.1 ug/mg cr (<30)
== END 2025-01-04 11:37 | disposition home or self-care (01) ==
LOC: HO.HMGCLR 11:36
PROVIDERS: Student in an Organized Health Care Education/Training Program; PCP Nurse Practitioner Family; Visit Provider Internal Medicine Pulmonary Disease
DX: E11.65 Type 2 diabetes mellitus with hyperglycemia (principal); E66.01 Morbid (severe) obesity due to excess calories; R94.7 Abnormal results of other endocrine function studies; E78.5 Hyperlipidemia, unspecified; I27.20 Pulmonary hypertension, unspecified; Z68.41 Body mass index [BMI] 40.0-44.9, adult; Z79.4 Long term (current) use of insulin; Z79.85 Long-term (current) use of injectable non-insulin antidiabetic drugs
CPT/HCPCS: 36415; 82043; 82570; 82947; 85027; 99212

== ENCOUNTER 2025-01-04 12:28 | Outpatient (AMB) | payer OTHER, SELFPAY ==
[2025-01-04 12:34] VITALS: BP 110/70; PULSE 102; O2SAT 95; BMI 41.1
--- NOTE | 2025-01-04 12:34 | A.OFFVIS_ITS ---
Vital Signs 3 01/04/25 12:34 Height 5 ft 2 in Weight 224 lb 13.944 oz BMI 41.1 BP 110/70 Blood Pressure Location Lt brachial Position Sitting Pulse 102 H Pulse Source Pulse Oximeter Pulse Oximetry (%) 95 Oxygen Delivery Method Room Air Intake Visit Reasons: DM, Cushings Intake Note: Patient present today for Type 2 Diabetes Mellitus and Cushings. 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 Type 2 DM HPI She is diagnosed with type 2 diabetes in September 2016. Current meds Mounjaro 7.5 mg weekly stopped Toujeo in November 2024 Prior meds Ozempic 2 mg had lots diarrhea Trulicity : tolerated it fine Jardiance: felt weak and hypoglycemia FanIQ 3+ downloaded from December 13, 2024 to December 26, 2024 Time CGM active 29% Average glucose 104 mg/dL Glucose variability 27.5% Within target range 90% Hi 3% Low 7% Hypoglycemia: had a 68 mg/dl last week, did have symptoms, no other episodes Hemoglobin A1c is 7.9%. 07/07/24 a1c 6% 11/09/24 Random Glucose: 106 mg/dl at 11 am ate a yogurt and banana Last Diabetic eye exam: 07/30/24 Retinopathy: no Last Podiatry Visit: Doesn't have one Neuropathy: no symptoms history of microalbuminuria but hasnt been checked again now in 3 years, last 2021. ordered but patient hasnt done it no heart attack or stoke Diet She is monitoring portion sizes. She avoids snacking between meals. 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 Dex suppression 12/22 cortisol 2.1, ACTH <5, dex level good 06/2020 24 hr urine cortisol 3.4 09/2020: cortisol was 2.2 ACTH <5, dex level 417 09/2020 salivary cortisol 0.08 Complains of easy bruising. No proximal muscle weakness. still Did not do the salivary cortisol test that was ordered in August 2024 and emphasised last vist Physical exam: Constitutional: Alert, in no distress. Neck: Supple, Full range of motion. No lymphadenopathy. No palpable thyroid masses. Respiratory: Clear to auscultation. Cardiovascular: S1 S2 regular. Systolic murmur. Foot exam 01/26 Right foot: Warm and well perfused. No clubbing, cyanosis or edema. DP pulse 3+. Decreased vibratory sensation. Intact sensation to monofilament. No open wounds. Left foot: Warm and well perfused. No clubbing, cyanosis or edema. DP pulse 3+. Decreased vibratory sensation. Intact sensation to monofilament. No open wounds. Laboratory Tests 12/30/19 06/14/20 06/19/20 08:26 10:32 11:58 Creatinine Estimated GFR Hgb A1c (Clinic) 10.2 H AST ALT Albumin Triglycerides Cholesterol LDL Cholesterol, Calc HDL Cholesterol Cortisol 2.1 ACTH <5 L Urine Total Volume 1125 Ur 24 Hour Volume 1125 Urine Creatinine Ur Creatinine mg/dL 36.21 Ur Creatinine 24 Hour 0.45 L Urine Microalbumin Microalb/Creat Ratio Ur Free Cortisol 24 Hr 3.4 L Saliva Cortisol Dexamethasone 09/28/20 09/28/20 10/15/20 08:30 Unknown 08:59 Creatinine Estimated GFR Hgb A1c (Clinic) AST ALT Albumin Triglycerides Cholesterol LDL Cholesterol, Calc HDL Cholesterol Cortisol 2.2 L 19.9 ACTH <5 L 23 Urine Total Volume Ur 24 Hour Volume Urine Creatinine Ur Creatinine mg/dL Ur Creatinine 24 Hour Urine Microalbumin Microalb/Creat Ratio Ur Free Cortisol 24 Hr Saliva Cortisol 0.08 Dexamethasone 417 12/02/21 10/27/22 06/15/23 11:12 15:18 13:47 Creatinine Estimated GFR Hgb A1c (Clinic) 8.6 H 7.1 H AST ALT Albumin Triglycerides Cholesterol LDL Cholesterol, Calc HDL Cholesterol Cortisol ACTH Urine Total Volume Ur 24 Hour Volume Urine Creatinine 109.34 Ur Creatinine mg/dL Ur Creatinine 24 Hour Urine Microalbumin 1268.0 Microalb/Creat Ratio 1159.6 Ur Free Cortisol 24 Hr Saliva Cortisol Dexamethasone 12/28/23 04/10/24 07/07/24 11:16 09:40 13:43 Creatinine 0.98 Estimated GFR 58 Hgb A1c (Clinic) 7.3 H 7.9 H AST 15 ALT 20 Albumin 4.1 Triglycerides 109 Cholesterol 154 LDL Cholesterol, Calc 89 HDL Cholesterol 44 Cortisol ACTH Urine Total Volume Ur 24 Hour Volume Urine Creatinine Ur Creatinine mg/dL Ur Creatinine 24 Hour Urine Microalbumin Microalb/Creat Ratio Ur Free Cortisol 24 Hr Saliva Cortisol Dexamethasone Laboratory Tests 10/10/24 10/10/24 10:05 10:08 Hgb 15.8 Hct 47.5 H Plt Count 210 Sodium 143 Potassium 4.0 Creatinine 0.87 Estimated GFR > 60 Fasting Glucose 102 H AST 17 ALT 19 Triglycerides 104 Cholesterol 147 LDL Cholesterol, Calc 84 HDL Cholesterol 43 TSH 2.32 Laboratory Tests 11/09/24 13:12 Hgb A1c (Clinic) 6.0 PFSH Medical History Uncontrolled type 2 diabetes mellitus with hyperglycemia, with long-term current use of insulin Chronic right heart failure History of pulmonary embolism (~02/2021) Pulmonary hypertension COPD (chronic obstructive pulmonary disease) Obstructive sleep apnea on CPAP Personal history of nicotine dependence DM type 2 (diabetes mellitus, type 2) (~09/2016) Dyslipidemia Anxiety Poor balance Urge incontinence Morbid obesity Tachycardia Surgical History History of endometrial ablation (~2003) History of esophagogastroduodenoscopy (EGD) (~2016) History of laparoscopic cholecystectomy (~2020) History of colonoscopy (~2015) History of cardiac cath History of carpal tunnel release (~2001) Family History Father Myocardial infarction Diabetes mellitus Mother Pancreatic cancer Maternal Grandfather Diabetes mellitus Maternal Aunt Pancreatic cancer Maternal Uncle AAA (abdominal aortic aneurysm) Daughter Substance use disorder Mental health disorder Social History Household Members: Family Household Members Other:: Granddaughter Housing: House Housing Other:: Granddaughter Are you a primary career discovery teacher to a significant other at home: No Do you presently have visiting nurse or other home services: No Alcohol intake: current Alcohol intake frequency: holidays/special occasions only Comment: patient rings appropriately Patient Tobacco Use Status: Current someday Tobacco user Years Smoked: (onset 19yo - 1/2ppd x 40years - 20pyh - quit in 2020) e-Cigarette/Vaping Use: Never Used Second Hand Smoke Exposure: No Substance Use Type: Marijuana service: No Current occupational status: disabled Cognitive needs: No Hearing needs: No Vision needs: No Assessment & Plan Assessment & Plan (1) Uncontrolled type 2 diabetes mellitus with hyperglycemia, with long-term current use of insulin: Code(s): E11.65 - Type 2 diabetes mellitus with hyperglycemia; Z79.4 - MCC (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 Last A1c from 11/09/2024 POC is 6% down from July 2024 was 7.9% , she is currently within goal of less than 7%. CGM data downloaded which shows blood sugars are mostly within target range, but she is barely wearing the CGM, I told her importance of monitoring blood sugars. At this time she has stopped taking the Toujeo since the past 2 months and November 2024 due to low blood sugars. I agree with that. She does still have some postprandial spikes so I will go up on the Mounjaro. Given history of microalbuminuria, no recent levels, I will repeat these. I asked her to repeat this at prior visit as well, she did not do it. In the future visits we can also plan to start her on Jardiance or Farxiga. In the past apparently she had hypoglycemia when she was started on Jardiance but I told her and reassured her that if we make the changes we will monitor her closely.. Plan: -stopped Toujeo -increase Mounjaro to 10 mg weekly -she is not exercising, encouraged to walk at least 20 minutes daily and start lifting some weights if she can not walk much. -advised to bring CGM publications manager to every visit -hypoglycemia education done -up-to-date on eye visit, no retinopathy Foot exam done on visit 01/04/2025, unremarkable, she does not see Podiatry -follow up in5 weeks as we are actively making changes due to hypoglycemic episodes (2) Abnormal dexamethasone suppression test: Code(s): R94.7 - Abnormal results of other endocrine function studies Category: Medical Plan: She has physical findings suggestive of Constance like plethora, visible vessels, supraclavicular fat pad and dorsocervical fat pad. Dex suppression 12/22 cortisol 2.1, ACTH <5, dex level good 06/2020 24 hr urine cortisol 3.4 09/2020: cortisol was 2.2 ACTH <5, dex level 417 09/2020 salivary cortisol 0.08 I think there is a low suspicion as dexamethasone suppression tests were equivocal and then she had normal salivary cortisol and 24 hour urine cortisol results. Plus she is losing weight on the Mounjaro and her diabetes is not that uncontrolled. She has not had any fractures. Regardless we will do salivary cortisol x2. If abnormal, we will proceed to also getting 24 hour urine test. I asked her to get these at last visit, still not done. Reiterated to the patient to get this testing done. Plan: -ordered salivary cortisol tests X 2 (3) Morbid obesity: Code(s): E66.01 - Morbid (severe) obesity due to excess calories Category: Medical Plan: BMI 41.1 kg per m2 down from 42. 3kg per m2 in November 2024 Current weight 224 lb down from 231 lb in November 2024 down from 234 lb last visit in August 2024 Plan: -advised to start walking at least 20 minutes daily and start lifting weights 2- 3 days a week -increase Mounjaro to 10 mg weekly (4) Dyslipidemia: Code(s): E78.5 - Hyperlipidemia, unspecified Category: Medical Plan: LDL level from April 2024 noted to be at 89 mg/dL, LDL goal less than 70 mg/dL. Most recent LDL again repeated in October 2024 elevated at 84 mg/dL. She is currently on atorvastatin 20 mg daily. I discussed with her the need for going up on the atorvastatin, however she would like to wait for improvement with dietary changes and weight loss.. Plan: -plan to repeat lipid panel in 3-6 months at the end of 2024 -continue atorvastatin 20 mg daily Plan I spent 30 minutes in reviewing the record, seeing the patient and documenting in the medical record. Medications: New 2 tirzepatide (Mounjaro) 10 mg (0.5 mL) subcut QWEEK 2 mL 5RF Discontinued 2 insulin glargine U-300 conc (Toujeo SoloStar U-300 Insulin) Discontinued Reason: Doctor's Order 8 units (0.0267 mL) subcut BEDTIME 4.5 mL 3RF E11.9 - Type 2 diabetes mellitus without complications tirzepatide (Mounjaro) Discontinued Reason: Doctor's Order 7.5 mg (0.5 mL) subcut QWEEK 6 mL 3RF Patient Instructions: Stop Toujeo Increase Mounjaro to 10 mg weekly injection Rule of 15 Treatment for Hypoglycemia (Low blood sugar) If your blood glucose is low (70 and below)*, follow the steps below to treat: Eat or drink something from the list below equal to 15 grams of carbohydrate (carb). Rest for 15 minutes Re-check your blood glucose. If it is still low, (below 70), repeat step 1 above. ? If your next meal is more than an hour away, you will need to eat one carbohydrate choice as a snack to keep your blood glucose from going low again. ?If you can't figure out why you have low blood glucose, call your healthcare provider, as your medicine may need to be adjusted. ?Always carry something with you to treat an insulin reaction. Use food from the list below. ? Foods equal to One Carbohydrate Choice (15 grams of carbohydrate): 3 Glucose ?tablets or 4 Dextrose tablets 4 ounces of fruit juice 5-6 ounces (about 1/2 can) of regular soda such as Coke or Pepsi ? 7-8 gummy or regular Life Savers ? 1 Tbsp. of sugar or jelly NOTE: If your blood sugar is less than 50, double the portion above for a total of 30 gm. ?Carbohydrate. ? Follow meal plan of 45-60 g of consistent carbohydrates at 3 meals each day and 15 g of carbohydrate at 1-2 snacks each day. Coding Level of Care Code Est Pt Level 4 (21641) Complex EM visit Add On G2211 Diagnoses Uncontrolled type 2 diabetes mellitus with hyperglycemia, with long-term current use of insulin E11.65; Z79.4 Abnormal dexamethasone suppression test R94.7 Morbid obesity E66.01 Dyslipidemia E78.5 Time Spent (min) 30
[2025-01-04 13:00] LABS: Glucose, Whole Blood 192 mg/dL (60-115)
== END 2025-01-04 13:12 | disposition home or self-care (01) ==
LOC: HO.ENCR 12:29
PROVIDERS: PCP Nurse Practitioner Family; Visit Provider Student in an Organized Health Care Education/Training Program
DX: E11.65 Type 2 diabetes mellitus with hyperglycemia (principal); Z79.4 Long term (current) use of insulin; R94.7 Abnormal results of other endocrine function studies; E66.01 Morbid (severe) obesity due to excess calories; E78.5 Hyperlipidemia, unspecified
CPT/HCPCS: 99214; G2211

== ENCOUNTER 2025-01-10 11:22 | Outpatient (AMB) | payer OTHER, SELFPAY ==
--- NOTE | 2025-01-10 11:26 | A.OFFPC_ITS ---
Vital Signs 01/10/25 11:31 Height 5 ft 2 in Weight 227 lb BMI 41.5 BP 100/76 Blood Pressure Location Lt brachial Position Sitting Respiration 16 Pulse 87 Pulse Source Pulse Oximeter Temp 99.0 F Temp Source Oral Pulse Oximetry (%) 94 Oxygen Delivery Method Room Air Intake Visit Reasons: 6m follow up Intake Note: Pt is here today for her 6mo. f/u Allergies erythromycin base (From E-MYCIN) Allergy (Severe, Verified 01/04/25 12:54) GI PAIN-SEVERE carvedilol Allergy (Mild, Verified 01/04/25 12:54) upset stomach, sweats Tobacco use date assessed: 01/10/25 Dental Screening Dental Screen Date: 01/10/25 Did you have a dental visit in the last 12 months?: Yes Did you have a dental problem in the last 6 months where you did not have access to dental care?: No Was dental information given to patient?: Patient has dentist HPI 6m follow up HPI Details Chief Complaint The patient presents for a follow-up on hypertension and anxiety management. History of Present Illness The patient is a 64-year-old female presenting with a generalized follow-up for hypertension management. Her hypertension is currently stable, and she continues to see a lung specialist in [place] for related care. She reports that imaging is conducted through her [place] provider, although documentation is currently unavailable, and she plans to request these records. The patient has a history of anxiety, which is being managed with hydroxyzine, providing relief. She has been restarted on buspirone, a medication she was previously hesitant about. She denies any suicidal ideation and does not wish to see a therapist at this time. Recently, the patient reported a possible tick bite on her left draper, characterized by ecchymosis with a perforator operator center, occurring approximately two weeks ago. She plans to undergo tick testing and has been advised to complete her fasting labs soon. Social History - Substance Use: Recently quit smoking b ut resumed smoking. - Stress: Reports stress at home but is managing it. Health Maintenance - Tick testing recommended due to recent possible tick bite. - Encouraged to complete fasting labs so on. Review of Systems - Cardiovascular: Denies chest pain. - Neurological: Denies headaches. - Ophthalmologic: Reports blurred vision . -denies any increase of SOB Physical Exam General: Cooperative, healthy appearing, comfortable, no acute distress and well developed, morbidly obese Orientation: Patient oriented x3 Limitations: No limitations Head: Normal to inspection Ears: Hearing grossly normal bilaterally Nose: Normal external nose present Face and sinus: Normal facial exam Eyes: Appearance normal, both eyes and all related structures Neck: Normal visual inspection and Yes full ROM Respiratory: Normal respiratory effort and able to speak in complete sentences. Clear to auscultation bilaterally Cardiovascular: Regular rate and rhythm. Normal S1 and S2 GI: Normal to inspection. Soft to palpation and nontender Skin: left anterior draper, more proximal aspect, with fading ? ecchymosis Neuro: Patient oriented x3 Extremities: Normal to inspection Results Plan The patient's hypertension remains stable, and she will continue her current management plan while ensuring follow-up with her lung specialist in [place]. For anxiety, hydroxyzine will be continued as it provides relief, and buspirone has been reintroduced despite initial hesitation. The patient is advised to monitor her mental health and seek therapy if needed, although she currently declines this option. Regarding the possible tick bite, tick testing will be conducted to rule out any tick-borne illnesses. The patient is encouraged to complete her fasting labs to ensure comprehensive health monitoring. Patient was informed and verbally consented to the use of an ambient scribe for clinic note documentation during this visit. Discussion Notes During the visit, we discussed the stability of the patient's hypertension and the continuation of her current management plan. We reviewed her anxiety management, deciding to maintain hydroxyzine and reintroduce buspirone, while considering therapy as an option if her condition changes. We also addressed the recent tick bite, planning for tick testing and emphasizing the importance of completing her fasting labs for ongoing health assessment. Patient Instructions - Continue current hypertension manageme nt and follow up with lung specialist. - Take hydroxyzine as prescribed and sta rt buspirone as discussed. - Monitor mental health and consider the rapy if needed. - Complete tick testing and fasting labs as soon as possible. [facility] Medical History Uncontrolled type 2 diabetes mellitus with hyperglycemia, with long-term current use of insulin Chronic right heart failure History of pulmonary embolism (~02/2021) Pulmonary hypertension COPD (chronic obstructive pulmonary disease) Obstructive sleep apnea on CPAP Personal history of nicotine dependence DM type 2 (diabetes mellitus, type 2) (~09/2016) Dyslipidemia Anxiety Poor balance Urge incontinence Morbid obesity Tachycardia Surgical History History of endometrial ablation (~2003) History of esophagogastroduodenoscopy (EGD) (~2016) History of laparoscopic cholecystectomy (~2020) History of colonoscopy (~2015) History of cardiac cath History of carpal tunnel release (~2001) Family History Father Myocardial infarction Diabetes mellitus Mother Pancreatic cancer Maternal Grandfather Diabetes mellitus Maternal Aunt Pancreatic cancer Maternal Uncle AAA (abdominal aortic aneurysm) Daughter Substance use disorder Mental health disorder Social History Household Members: Family Household Members Other:: Granddaughter Housing: House Housing Other:: Granddaughter Are you a primary care transition coordinator to a significant other at home: No Do you presently have visiting nurse or other home services: No Alcohol intake: current Alcohol intake frequency: holidays/special occasions only Comment: patient rings appropriately Patient Tobacco Use Status: Current someday Tobacco user Years Smoked: (onset 19yo - 1/2ppd x 40years - 20pyh - quit in 2019) e-Cigarette/Vaping Use: Never Used Second Hand Smoke Exposure: No Substance Use Type: Marijuana service: No Current occupational status: disabled Cognitive needs: No Hearing needs: No Vision needs: No Questionnaire PHQ-9 Over the last 2 weeks, how often have you been bothered by any of the following problems? 1. Little interest or pleasure in doing things: not at all 2. Feeling down, depressed, or hopeless: not at all 3. Trouble falling or staying asleep, or sleeping too much: several days 5. Poor appetite or overeating: not at all 6. Feeling bad about yourself - or that you are a failure or have let yourself or your family down: several days 7. Trouble concentrating on things, such as reading the newspaper or watching television: not at all Source: Developed by Drs. Chalo Li, Graciela Byrd, Baldo Lofton and colleagues, with an educational lucero from [employer]. Thrive Questionnaire Date Thrive assessed: 07/08/24 I am a: Patient What is your living situation today?: I have a steady place to live Within the past 12 months, did the food you bought not last and you didn't have the money to get more?: I choose not to answer this question Within the past 12 months, did you worry whether your food would run out before you got money to buy more?: I choose not to answer this question Do you have trouble paying for medicines?: No Do you have trouble getting transportation to medical appointments?: I choose not to answer this question Do you have trouble paying your heating and electricity bill?: I choose not to answer this question Do you have trouble taking care of your child, family member or friend?: No Do you have trouble with day-to-day activities such as bathing, preparing meals, shopping, managing finances, etc.?: No Are you currently unemployed and looking for a job?: I choose not to answer this question Are you interested in more education?: No Please select the resources that you would like help with: None Currently or been in a relationship where the following occur: No concerns reported THRIVE Score: 0 PATRICIA-7 AMB Questionnaire PATRICIA-7 Date PATRICIA - 7 assessed: 07/11/24 Source: Developed by Drs. Chalo Li, Graciela Byrd, Baldo Lofton and colleagues, with an educational lucero from [employer]. Physical exam (Primary Care) Vital Signs: Last Vital Signs Temp 99.0 F 01/10/25 11:31 Pulse 87 01/10/25 11:31 Resp 16 01/10/25 11:31 BP 100/76 01/10/25 11:31 Pulse Ox 94 01/10/25 11:31 Oxygen Delivery Method Room Air 01/10/25 11:31 BMI result Body Mass Index 41.5 Tobacco/Smoking Status: Tobacco use Status Tobacco use date assessed 01/10/25 01/10/25 11:38 Patient Tobacco Use Status Current someday Tobacco 01/10/25 11:26 e-Cigarette/Vaping Use Never Used 01/10/25 11:26 Thrive Assessment: Date of Thrive Assessment Date Thrive assessed 07/08/24 01/10/25 11:26 Currently or been in a relationship where the following occur: No concerns reported Coding Level of Care Code Est Pt Level 3 (22728) Diagnoses Hypertension I10 Vitamin D deficiency E55.9 Tick bite W57.XXXA COPD (chronic obstructive pulmonary disease) J44.9 Anxiety F41.9 Assessment & Plan Assessment & Plan (1) Hypertension: Code(s): I10 - Essential (primary) hypertension Category: Medical (2) Vitamin D deficiency: Code(s): E55.9 - Vitamin D deficiency, unspecified Category: Medical (3) Tick bite: Code(s): W57.XXXA - Bitten or stung by nonvenomous insect and other nonvenomous arthropods, initial encounter Category: Medical (4) COPD (chronic obstructive pulmonary disease): Comment: (08/20/16 PFT = FVC: 79, FEV1: 76, FEV1/FVC 71 - mild-mod obstructive airway di sorder) Code(s): J44.9 - Chronic obstructive pulmonary disease, unspecified Category: Medical (5) Anxiety: Code(s): F41.9 - Anxiety disorder, unspecified Category: Medical Plan . Orders: Orders Comprehensive [place]. Panel Fast Today I10 - Essential (primary) hypertension Lipid Panel Today I10 - Essential (primary) hypertension Vitamin D 25-OH Total Today E55.9 - Vitamin D deficiency, unspecified Tick-borne Disease Molecular Today W57.XXXA - Bitten or stung by nonvenomous insect and other nonvenomous arthropods, initial encounter Complete Blood Count Auto Diff Today I10 - Essential (primary) hypertension TSH reflex Free T4 Today I10 - Essential (primary) hypertension UA CC w/rflx Micro + Cult Today I10 - Essential (primary) hypertension Lyme IgG/IgM w/reflex to WB Today W57.XXXA - Bitten or stung by nonvenomous insect and other nonvenomous arthropods, initial encounter Referrals Cologuard Test Z12.11 - Encounter for screening for malignant neoplasm of colon, Z12.12 - Encounter for screening for malignant neoplasm of rectum
[2025-01-10 11:31] VITALS: BP 100/76; PULSE 87; RESP 16; TEMP 37.2; O2SAT 94; BMI 41.5
--- OUTSIDE RECORDS SUMMARY | 2025-01-10 12:34 | XMS_ITS | Clinical Summary ---
Author Organization [facility] Address [address] [place] [id number] Care Team Providers Care Wastewater Plant Operator Name Role Phone Unavailable Primary Care [...] Visual Foot Exam 10/11/2020 Influenza Vaccine (#1) 2025 Hepatitis B Vaccine Aged Out No longe r eligible based on patient's age to complete this topic Insurance Medicaid Medicaid
--- OUTSIDE RECORDS SUMMARY | 2025-01-10 12:34 | XMS_ITS | Clinical Summary ---
Author Organization [facility] Address [address] [place] [address] Care Team Providers Care Welt Trimming Machine Operator Name Role Phone Unavailable Primary Care Provider Unavailabl e Social History Tobacco Use Types Packs/Day Years Used Date Smoking Tobacco: Never Assessed Sex and Gender Information Value Date Recorded Sex Assigned at Not on file Gender Identity Not on file Sexual Orientation Not on file Plan of Treatment Not on file
== END 2025-01-10 12:21 | disposition home or self-care (01) ==
LOC: HO.HMCC 11:23
PROVIDERS: PCP Nurse Practitioner Family; Visit Provider Nurse Practitioner Family
DX: I10 Essential (primary) hypertension (principal); E55.9 Vitamin D deficiency, unspecified; W57.XXXA Bitten or stung by nonvenomous insect and other nonvenomous arthropods, initial encounter; J44.9 Chronic obstructive pulmonary disease, unspecified; F41.9 Anxiety disorder, unspecified

== ENCOUNTER → 2025-01-10 11:22 | Outpatient (BNVA) | payer OTHER, SELFPAY | PROVIDERS: PCP Nurse Practitioner Family; Visit Provider Nurse Practitioner Family | DX: I10 Essential (primary) hypertension (principal); E55.9 Vitamin D deficiency, unspecified; F41.9 Anxiety disorder, unspecified; J44.9 Chronic obstructive pulmonary disease, unspecified; T14.8XXA Other injury of unspecified body region, initial encounter; W57.XXXA Bitten or stung by nonvenomous insect and other nonvenomous arthropods, initial encounter; X58.XXXA Exposure to other specified factors, initial encounter; Y93.9 Activity, unspecified; Y92.9 Unspecified place or not applicable; Y99.9 Unspecified external cause status | CPT/HCPCS: 99212 ==

== ENCOUNTER 2025-01-12 11:04 | Outpatient (REF) | payer OTHER, SELFPAY ==
--- OUTSIDE RECORDS SUMMARY | 2025-01-12 11:42 | XMS_ITS | Clinical Summary ---
Author Organization [facility] Address [address] [place] [address] Care Team Providers Care Driving Instructor Name Role Phone Unavailable Primary Care Provider Unavailabl e Social History Tobacco Use Types Packs/Day Years Used Date Smoking Tobacco: Never Assessed Sex and Gender Information Value Date Recorded Sex Assigned at Not on file Gender Identity Not on file Sexual Orientation Not on file Plan of Treatment Not on file
--- OUTSIDE RECORDS SUMMARY | 2025-01-12 11:42 | XMS_ITS | Clinical Summary ---
Author Organization [facility] Address [address] [place] [id number] Care Team Providers Care Travel Counselor Automobile Club Name Role Phone Unavailable Primary Care Provider [...]
[2025-01-12 13:44] LABS: MANUAL DIFF FLAG NO
[2025-01-12 13:52] LABS: Appearance Urine Cloudy; Glucose Urine UA Negative (Negative); PH 5.5 (5.0-9.0); Specific Gravity - Urine 1.020 (1.005-1.025); UMIC TRIGGER UACC YES
[2025-01-12 14:13] LABS: Hematocrit 54.7 % (37.0-47.0); Hemoglobin 18.2 g/dl (12.0-16.0); Imm Gran Abs Auto 0.10 X10*3/uL (0.00-0.03); Imm Gran Pct Auto 1.1 % (0.0-0.4); Lymphocytes Absolute Auto 3.3 X10*3/uL (1.2-4.9); Mean Corpuscular HGB Conc 33.3 g/dl (31.0-35.0); Mean Corpuscular Hemoglobin 28.5 pg (27.0-33.0); Mean Corpuscular Volume 85.7 fL (80.0-98.0); NRBC Abs Auto 0.000 X10*3/uL (0.0-0.012); NRBC Pct Auto 0.0 /100WBC (0.0-0.2); Platelet Count 252 X10*3/uL (160-400); Red Blood Count 6.38 X10*6/uL (4.20-5.50); White Blood Count 9.2 X10*3/uL (4.8-10.8)
[2025-01-12 15:07] LABS: Alanine Aminotransferase 27 U/L (0-31); Albumin Level 4.1 g/dL (3.5-5.0); Alkaline Phosphatase 135 U/L (39-117); Anion Gap 13 (12-20); Aspartate Amino Transferase 27 U/L (5-31); Blood Urea Nitrogen 14 mg/dL (9-16); Calcium 9.0 mg/dL (8.4-10.2); Carbon Dioxide 30 mmol/L (22-29); Chloride 105 mmol/L (96-108); Cholesterol 169 mg/dL (<200); Estimated Glomerular Filt Rate 58; HDL Cholesterol 43 mg/dL (>40); Potassium 4.3 mmol/L (3.3-5.1); Sodium 144 mmol/L (135-145); Total Protein 6.6 g/dL (6.5-8.0); Triglycerides 106 mg/dL (<150)
[2025-01-13 17:38] LABS: A. Phagocytphilium DNA,RT-PCR NOT DETECTED (NOT DETECTED); Babesia Microti DNA, RT-PCR NOT DETECTED (NOT DETECTED); Borrelia Miyamotoi,DNA RT-PCR NOT DETECTED (NOT DETECTED); E.Chaffeensis DNA RT-PCR NOT DETECTED (NOT DETECTED); Lyme(Borrelia ssp)DNA RT-PCR NOT DETECTED (NOT DETECTED)
[2025-01-15 21:13] LABS: Lyme Abs Screen <0.90 index
== END 2025-01-12 11:05 | disposition home or self-care (01) ==
LOC: HO.HMGCLDS 11:04
PROVIDERS: PCP Nurse Practitioner Family; Visit Provider Nurse Practitioner Family
DX: E55.9 Vitamin D deficiency, unspecified (principal); I10 Essential (primary) hypertension; T14.8XXA Other injury of unspecified body region, initial encounter
CPT/HCPCS: 36415; 80053; 80061; 81001; 82306; 84443; 85025; 86617; 86618; 87468; 87469; 87478; 87484; 87798

== ENCOUNTER 2025-01-23 11:48 | Outpatient (REF) | payer OTHER, SELFPAY ==
--- OUTSIDE RECORDS SUMMARY | 2025-01-23 13:04 | XMS_ITS | Clinical Summary ---
Author Organization [facility] Address [address] [place] [address] Care Team Providers Care Sheeter Machine Operator Name Role Phone Unavailable Primary [...]
--- OUTSIDE RECORDS SUMMARY | 2025-01-23 13:04 | XMS_ITS | Clinical Summary ---
Author Organization [facility] Address [address] [place] [address] Care Team Providers Care Rebar Bender Name Role Phone Unavailable Primary Care Provider Unavailabl e Social History Tobacco Use Types Packs/Day Years Used Date Smoking Tobacco: Never Assessed Sex and Gender Information Value Date Recorded Sex Assigned at Not on file Gender Identity Not on file Sexual Orientation Not on file Plan of Treatment Not on file
--- OUTSIDE RECORDS SUMMARY | 2025-01-23 13:04 | XMS_ITS | Encounter Summary ---
Author Organization [facility] Address [address] [place] [address] Phone Care Team Providers Care Inspector Structural Bonding Name Role Phone Binh Lopez NP Primary Care Provider + Encounter Details Date Type Department Care Team (Late Contact Info) Description 12/03/[address] [facility] Cardiac Advertising Sales Manager [address] [place] [address] Social History Tobacco Use Types Packs/Day Years Used Date Smoking Tobacco: Former Cigarettes 1 35 1 985 - 2019 Smokeless Tobacco: Never Alcohol Use Standard Drinks/Week Comments Not Currently 0 (1 standard drink = 0.6 oz pur e alcohol) Education Answer Date Recorded Are you interested in more education? Not on neo e 10/30/2022 Are you concerned about learning? Not on file 10/30/2022 No 10/30/2022 No 10/30/2022 Digital Access Answer Date Recorded No 11/24/2022 No 11/24/2022 Reliable internet access at home? Not on file 11/24/2022 Device with a working camera? Not on file Comments Unknown Sex and Gender Information Value Date Recorded Sex Assigned at Not on file Legal Sex Female 11:43 AM EDT Gender Identity Not on file Sexual Orientation Not on file documented as of this encounter Plan of Treatment Upcoming Encounters Date Type Department Care Team (Late Contact Info) Description 03/08/2025 4:30 PM EDT Office Visit [facility] Pul[facility] [address] [place] [address], [address] Floor, [address] [place] [address] Annette Sun MD [address] [place] [address] [id number] [place] [address] [email or web address] as of this encounter Visit Diagnoses Not on filedocumented in this encounter Care Teams Inspector Structural Bonding Relationship Specialty Start Date End Date Binh Lopez NP [address] [place] [address] [email or web address] PCP - General Family Medicine 08/22/21 documented as of this encounter Additional Source Comments The information contained in this document represents components of the legal health record. It is not the complete legal health record.[facility]
[2025-01-23 13:38] LABS: MANUAL DIFF FLAG NO
[2025-01-23 13:43] LABS: Hematocrit 54.2 % (37.0-47.0); Hemoglobin 17.9 g/dl (12.0-16.0); Imm Gran Abs Auto 0.18 X10*3/uL (0.00-0.03); Imm Gran Pct Auto 1.7 % (0.0-0.4); Lymphocytes Absolute Auto 2.6 X10*3/uL (1.2-4.9); Mean Corpuscular HGB Conc 33.0 g/dl (31.0-35.0); Mean Corpuscular Hemoglobin 28.3 pg (27.0-33.0); Mean Corpuscular Volume 85.8 fL (80.0-98.0); NRBC Abs Auto 0.000 X10*3/uL (0.0-0.012); NRBC Pct Auto 0.0 /100WBC (0.0-0.2); Platelet Count 215 X10*3/uL (160-400); Red Blood Count 6.32 X10*6/uL (4.20-5.50); White Blood Count 10.5 X10*3/uL (4.8-10.8)
== END 2025-01-23 11:49 | disposition home or self-care (01) ==
LOC: HO.HMGCLR 11:48
PROVIDERS: PCP Nurse Practitioner Family; Visit Provider Internal Medicine Pulmonary Disease
DX: M62.830 Muscle spasm of back (principal); I27.20 Pulmonary hypertension, unspecified; Z79.899 Other long term (current) drug therapy; Z79.4 Long term (current) use of insulin
CPT/HCPCS: 36415; 85025; 99212

== ENCOUNTER 2025-01-23 12:01 | Outpatient (AMB) | payer OTHER, SELFPAY ==
[2025-01-23 12:06] VITALS: BP 134/80; PULSE 90; TEMP 36.9; O2SAT 93; BMI 41.4
--- NOTE | 2025-01-23 12:06 | MHC.OFFWIV ---
Intake Vital Signs 01/23/25 12:06 Height 5 ft 2 in Weight 226 lb 4 oz BMI 41.4 BP 134/80 Blood Pressure Location Rt brachial Position Sitting Pulse 90 Pulse Source Pulse Oximeter Temp 98.5 F Temp Source Oral Pulse Oximetry (%) 93 Oxygen Delivery Method Room Air Intake Visit Reasons: EP Pain on lower LT back side Patient Tobacco Use Status: Current someday Tobacco user Electrical Engineering Intern Required: No Is last menstrual period known: No Post menopausal: Yes Patient : No Allergies erythromycin base (From E-MYCIN) Allergy (Severe, Verified 01/23/25 12:20) GI PAIN-SEVERE carvedilol Allergy (Mild, Verified 01/23/25 12:20) upset stomach, sweats Medication List - Last Reconciled 01/23/25 by ESTUARDO Freeman-FERNANDO acetaminophen 1,000 mg (2 x 500 mg) PO Q6H PRN albuterol sulfate 2.5 mg (3 mL) inhalation QID PRN allopurinol 400 mg (2 x 200 mg) PO DAILY 90 days apixaban (Eliquis) 5 mg PO BID atorvastatin 20 mg PO BEDTIME blood sugar diagnostic (FreeStyle Lite Strips) As directed to check blood sugars three times a day blood-glucose meter (FreeStyle Lite Meter kit) As directed to check blood sugars three times a day blood-glucose sensor (FreeStyle Ines 3 Plus Sensor device) As directed every 14 days blood-glucose,case planner,cont (FreeStyle Ines 3 [place]) As directed cholecalciferol (vitamin D3) 125 mcg PO DAILY colchicine 0.6 mg PO DAILY PRN flash glucose scanning reader (FreeStyle Ines 2 [place]) As directed flash glucose sensor (FreeStyle Ines 2 Sensor kit) DIRECTED CHANGE EVERY 14 DAYS gabapentin 300 mg PO BID 30 days hydroxyzine HCl 50 mg PO BEDTIME PRN lancets (FreeStyle Lancets) As directed to check blood sugars three times a day montelukast 10 mg PO BEDTIME nebulizers Nebulizer and supplies to use as directed for updraft treatments omeprazole 20 mg PO DAILY 90 days pen needle, diabetic As directed 1X DAILY selexipag (Uptravi) 0 ea PO sotatercept-csrk (Winrevair) mg subcut spironolactone 25 mg PO DAILY tirzepatide (Mounjaro) 10 mg (0.5 mL) subcut QWEEK torsemide 60 mg PO DAILY Ventolin HFA 90 mcg/actuation (albuterol sulfate) 2 puffs inhalation Q4H PRN 30 days NS Do you need a note to return to daycare/school/sports/work: No HPI HPI Comments History of Present Illness Details History of Present Illness - The patient is a 64-year-old female presenting with acute low back pain. - Pain onset 2 weeks ago, worsened after moving a mattress & doing heavy house work - Initially lower left back pain, now includes right side. - Describes pain as muscle spasms, seizing up her back. - No pain radiating down legs; denies sciatica symptoms. - Pain relief partial with ibuprofen and acetaminophen. - Functional impairment: difficulty bending, standing, exiting bed. Review of Systems - Musculoskeletal: Reports localized lower back pain, worsening spasms, and non-radiating pain. - Neurological: Denies sciatica or pain radiating down the legs. Physical Exam General: Well developed, well nourished, in no acute distress. Appears stated age. Head: Normocephalic, atraumatic. Eyes: Pupils are equal, round and reactive to light and accommodation. Neck: FROM Abdomen: No CVAT Musculoskeletal: Notable muscle spasms observed in the lower back, particularly on the left side. Visible knotting and spasming noted upon examination. Spine is nontender Pulses: Peripheral pulses are equal and palpable bilaterally. Extremities: No clubbing, cyanosis nor edema is noted. Neuro: Nonfocal exam Psych: Mood and affect appropriate. Discussion Notes During the consultation, I discussed with the patient her current condition of acute back pain due to muscle spasm. We reviewed her care options, and I recommended a muscle relaxer, to which she agreed. The prescribed medication is baclofen, 10 mg, which can be taken up to three times a day, with the option to start at 5 mg to assess tolerance. I advised pairing the medication with acetaminophen and using ibuprofen only sparingly. Additionally, I recommended using warm, moist heat applications and topical treatments like lidocaine to manage discomfort. Anticipatory guidance regarding the medication's potential to cause drowsiness and ensuring safety when using it was emphasized. We agreed to monitor symptoms, and the prescription was sent to her pharmacy. No immediate follow-up plans were specifically set during this discussion, though improvement in symptoms should be noted with this treatment plan. Assessment and Plan 1. Acute Muscle Spasm - Baclofen 10 mg prescribed; consider starting with 5 mg. - Recommend acetaminophen; sparing use of ibuprofen. - Warm, moist heat for muscle relaxation. - Topical lidocaine advised. - Monitor symptoms; pharmacy notified. Patient Instructions - Take baclofen as prescribed; can start with half a tablet. - Use warm, moist heat on your back. - Apply topical pain relief like lidocaine. - Use Tylenol and ibuprofen cautiously. - Be careful with activities until you know how baclofen affects you. Consent Patient was informed and verbally consented to the use of an ambient scribe for clinic note documentation during this visit. [facility] Medical History (Updated 01/23/25 @ 12:27 by Patricia Ivey [facility]) Anxiety Chronic right heart failure COPD (chronic obstructive pulmonary disease) DM type 2 (diabetes mellitus, type 2) (~09/2016) Dyslipidemia Elevated hemoglobin History of pulmonary embolism (~02/2021) Morbid obesity Obstructive sleep apnea on CPAP Personal history of nicotine dependence Poor balance Pulmonary hypertension Tachycardia Uncontrolled type 2 diabetes mellitus with hyperglycemia, with long-term current use of insulin Urge incontinence Surgical History History of cardiac cath History of carpal tunnel release (~2001) History of colonoscopy (~2015) History of endometrial ablation (~2003) History of esophagogastroduodenoscopy (EGD) (~2016) History of laparoscopic cholecystectomy (~2020) Family History Father Myocardial infarction Diabetes mellitus Mother Pancreatic cancer Maternal Grandfather Diabetes mellitus Maternal Aunt Pancreatic cancer Maternal Uncle AAA (abdominal aortic aneurysm) Daughter Substance use disorder Mental health disorder Social History Household Members: Family Household Members Other:: Granddaughter Housing: House Housing Other:: Granddaughter Are you a primary skin care technician to a significant other at home: No Do you presently have visiting nurse or other home services: No Alcohol intake: current Alcohol intake frequency: holidays/special occasions only Comment: patient rings appropriately Patient Tobacco Use Status: Current someday Tobacco user Years Smoked: (onset 19yo - 1/2ppd x 40years - 20pyh - quit in 2020) e-Cigarette/Vaping Use: Never Used Second Hand Smoke Exposure: No Substance Use Type: Marijuana Patient : No service: No Current occupational status: disabled Cognitive needs: No Hearing needs: No Vision needs: No Physical Exam Vital Signs: Last Vital Signs Temp 98.5 F 01/23/25 12:06 Pulse 90 01/23/25 12:06 BP 134/80 01/23/25 12:06 Pulse Ox 93 01/23/25 12:06 Oxygen Delivery Method Room Air 01/23/25 12:06 BMI result Body Mass Index 41.4 Assessment & Plan Assessment & Plan (1) Spasm of muscle of lower back: Code(s): M62.830 - Muscle spasm of back Plan . Medications: New baclofen 10 mg PO TID PRN 15 tabs 0RF muscle spasm Coding Level of Care Code Est Pt Level 3 (27818) Diagnoses Spasm of muscle of lower back M62.830
== END 2025-01-23 12:46 | disposition home or self-care (01) ==
PROVIDERS: PCP Nurse Practitioner Family; Visit Provider Nurse Practitioner Family
DX: M62.830 Muscle spasm of back (principal)

== ENCOUNTER 2025-02-10 13:22 | Emergency (ER) | payer OTHER, SELFPAY ==
--- NOTE | ~2025-02-10 | XR_ITS ---
CLINICAL HISTORY: pain 3 views lumbar spine Comparison: None provided Findings: Normal alignment. No acute fractures or dislocation. Multilevel disc space narrowing and endplate osteophyte formation, as well as facet hypertrophy. IMPRESSION: No acute findings. This document has been electronically signed by: Louise Nix MD on 02/10/2025 14:56:40
[2025-02-10 13:30] VITALS: BP 162/94; PULSE 85; RESP 16; TEMP 36.7; O2SAT 95; BMI 41.4
--- NOTE | 2025-02-10 16:02 | ED.BACK ---
HPI - Back Pain/Injury General Chief Complaint: Back Pain/Injury Stated Complaint: Lower back pain Time Seen by Provider: 02/10/25 16:21 Source: patient, RN notes reviewed and old records reviewed Mode of arrival: ambulatory Limitations: no limitations History of Present Illness ED Provider: Skyla HPI Narrative: Patient is a 64-year-old female with history of T2 DM, CHF, pulmonary hypertension, HTN, dyslipidemia, JACKSON on CPAP, COPD, gout, obesity, history of PE on Eliquis presenting to the emergency department with complaint of left lower back pain for the past month. She sits up prior to onset of her symptoms she was doing a lot of cleaning and moving in her house. Has been to urgent care as well as her PCP. Has use Tylenol which has not decreased her pain at all. Occasionally has used ibuprofen as it is the only thing that helps to relieve her pain, even though she knows she is not supposed to be using this due to her being on Eliquis. Has tried baclofen as well as tizanidine also without relief. She denies any saddle anesthesia or bowel or bladder incontinence or urinary retention. Denies any fevers. Denies history of cancer or IV drug use. Denies any radiation of pain to her legs. States pain is worse with movement and palpation. Reports distant history of sacroiliitis. States that at one visit a provider mentioned that they were able to visibly see her back muscles spasming. Has not discussed physical therapy at any visits thus far but is open to this option. Denies any hematuria, dysuria or other urinary symptoms. Denies any abdominal pain. MD elicited complaint: back pain Related Data Home Medications ?Medication ?Instructions ?Recorded ?Confirmed spironolactone 25 mg tablet 25 mg PO DAILY 01/08/22 01/23/25 torsemide 20 mg tablet 60 mg PO DAILY 01/08/22 01/23/25 selexipag 200 mcg (140)-800 mcg 0 ea PO 03/22/24 01/23/25 (60) tablets in a dose pack (Uptravi) sotatercept-csrk 45 mg mg subcut 01/04/25 01/23/25 subcutaneous kit (Winrevair) Previous Rx's ?Medication ?Instructions ?Recorded flash glucose scanning reader #1 ea 10/27/22 ([employer] Ines 2 [place]) montelukast 10 mg tablet 10 mg PO BEDTIME #90 tabs 03/24/23 apixaban 5 mg tablet (Eliquis) 5 mg PO BID #180 tabs 06/18/23 colchicine 0.6 mg tablet 0.6 mg PO DAILY PRN for gout pain 11/24/23 #30 tabs Ventolin HFA 90 mcg/actuation 2 puff inhalation Q4H PRN 06/16/24 aerosol inhaler (albuterol sulfate) Shortness Of Breath 30 days #8 grams flash glucose sensor (FreeStyle #2 kits 07/07/24 Ines 2 Sensor kit) albuterol sulfate 2.5 mg/3 mL 2.5 mg (3 mL) inhalation QID PRN 07/12/24 (0.083 %) solution for nebulization shortness of breath or wheezing #90 mL nebulizers #1 ea 07/12/24 acetaminophen 500 mg capsule 1,000 mg (2 x 500 mg) PO Q6H PRN 08/14/24 pain #30 caps gabapentin 300 mg capsule 300 mg PO BID 30 days #60 caps 08/21/24 atorvastatin 20 mg tablet 20 mg PO BEDTIME #90 tabs 09/19/24 allopurinol 200 mg tablet 400 mg (2 x 200 mg) PO DAILY 90 10/20/24 days #180 tabs blood-glucose sensor (FreeStyle #6 ea 11/08/24 Ines 3 Plus Sensor device) blood-glucose,docket clerk,cont #1 ea 11/08/24 (FreeStyle Ines 3 [place]) pen needle, diabetic 32 gauge x #50 ea 11/09/24 omeprazole 20 mg capsule,delayed 20 mg PO DAILY 90 days #90 caps 11/15/24 release blood-glucose meter (FreeStyle #1 ea 11/22/24 Lite Meter kit) lancets 28 gauge (FreeStyle #100 ea 11/22/24 Lancets) hydroxyzine HCl 50 mg tablet 50 mg PO BEDTIME PRN for itch #90 12/28/24 tabs tirzepatide 10 mg/0.5 mL 10 mg (0.5 mL) subcut QWEEK #2 mL 01/04/25 subcutaneous pen injector (Pranav) cholecalciferol (vitamin D3) 125 125 mcg PO DAILY #90 caps 01/19/25 mcg (5,000 unit) capsule blood sugar diagnostic (FreeStyle #100 ea 02/06/25 Lite Strips) tizanidine 4 mg tablet 4 mg PO BID PRN muscle spasticity 02/07/25 10 days #20 tabs oxycodone 5 mg tablet 10 mg (2 x 5 mg) PO ONCE severe 02/10/25 pain #2 tabs prednisone 20 mg tablet 20 mg PO DAILY #5 tabs 02/10/25 Allergies Allergy/AdvReac Type Severity Reaction Status Date / Time erythromycin base (From Allergy Severe GI Verified 02/10/25 13:33 E-MYCIN) PAIN-SEVERE carvedilol Allergy Mild upset Verified 02/10/25 13:33 stomach, sweats Review of Systems Review of Systems: As per HPI Yes all other systems are reviewed and are negative Constitutional: Constitutional: Reports as per HPI [facility] Past Medical History Medical History (Updated 02/10/25 @ 17:40 by Jeanie Crum NP) Elevated hemoglobin Uncontrolled type 2 diabetes mellitus with hyperglycemia, with long-term current use of insulin Chronic right heart failure History of pulmonary embolism (~02/2021) Pulmonary hypertension COPD (chronic obstructive pulmonary disease) Obstructive sleep apnea on CPAP Personal history of nicotine dependence DM type 2 (diabetes mellitus, type 2) (~09/2016) Dyslipidemia Anxiety Poor balance Urge incontinence Morbid obesity Tachycardia Surgical History History of endometrial ablation (~2003) History of esophagogastroduodenoscopy (EGD) (~2016) History of laparoscopic cholecystectomy (~2020) History of colonoscopy (~2015) History of cardiac cath History of carpal tunnel release (~2001) Family History Family History Father Myocardial infarction Diabetes mellitus Mother Pancreatic cancer Maternal Grandfather Diabetes mellitus Maternal Aunt Pancreatic cancer Maternal Uncle AAA (abdominal aortic aneurysm) Daughter Substance use disorder Mental health disorder Social History Social History Household Members: Family Household Members Other:: Granddaughter Housing: House Housing Other:: Granddaughter Are you a primary career agent to a significant other at home: No Do you presently have visiting nurse or other home services: No Alcohol intake: current Alcohol intake frequency: holidays/special occasions only Comment: patient rings appropriately Patient Tobacco Use Status: Current someday Tobacco user Years Smoked: (onset 19yo - 1/2ppd x 40years - 20pyh - quit in 2019) Smoked in Last 30 Days: Yes e-Cigarette/Vaping Use: Never Used Second Hand Smoke Exposure: No Use of substances other than those prescribed or required for medical reasons: Yes Substance Use Type: Marijuana Advance Directives: No Advance Directives Information Provided: Yes Do you have a plan to hurt others: No Plan service: No Current occupational status: disabled Cognitive needs: No Hearing needs: No Vision needs: No Physical Exam Vital Signs: Vital Signs: Last Vital Signs Temp 98.1 F 02/10/25 13:30 Pulse 85 02/10/25 13:30 Resp 16 02/10/25 13:30 BP 162/94 H 02/10/25 13:30 Pulse Ox 95 02/10/25 13:30 O2 Del Method Room Air 02/10/25 13:30 BMI result Body Mass Index 41.4 Vital signs have been reviewed and appear to be correct. Blood pressure elevated. Heart rate normal. Respiratory rate normal. Temperature normal. Oxygen saturation normal. Const: General: cooperative and no acute distress Nutritional Appearance: obese Orientation/consciousness: oriented to person, oriented to place, oriented to time and patient oriented x3 Limitations: no limitations HEENT: Head: Yes normocephalic and Yes atraumatic Ears: external ears normal General nose exam: Normal external nose present Face and sinus: Yes face symmetric Mouth: oropharynx normal and moist mucous membranes Throat: Yes uvula midline Eyes: Pupils: Equal, round and reactive pupils present Neck: Neck: Yes normal visual inspection and Yes supple Resp: Effort & Inspection: normal respiratory effort and able to speak in complete sentences Auscultation: clear to auscultation bilaterally Cardio: Rate: regular rate Rhythm: regular rhythm Heart sounds: S1 normal heart sound present and S2 normal heart sound present GI: Palpation (GI): Soft to palpation and nontender Auscultation: normoactive bowel sounds : General: Yes no CVA tenderness Back/Spine/Pelvis: Back: no CVA tenderness Cervical Spine: normal cervical lordosis and cervical ROM normal Thoracic/Lumbar Spine: thoracic and lumbar spine normal to inspection, thoraco-lumbar ROM normal, straight leg raise negative bilaterally, pain with thoraco-lumbar ROM, paraspinal muscle tenderness on the left in the mid lumbar and in the lower lumbar, No thoracic spinal tenderness and No lumbar spinal tenderness Sacroiliac joints: on the left tender to palpation Skin: General skin exam: elasticity normal and turgor normal Neuro: General: oriented to person, oriented to place, oriented to time, patient oriented x3, gait normal, tone normal, moves all extremities, Normal light touch and pain sensation, no focal motor deficits, CN's II-XI intact bilaterally and deep tendon reflexes 2+ bilaterally Cranial nerves: Yes Equal, round and reactive pupils present Cognition (Neuro): normal cognition Motor exam (neuro): 5/5 motor strength present throughout, Normal motor muscle tone present throughout and Motor abnormalities not present Extrem: General: Yes full ROM, Yes no pedal edema and Yes no calf tenderness Psych: Mental Status: mental status grossly normal Affect: normal affect Thought process: Normal thought process present Course Course Course Narrative: This is an RME: Additional HPI, ROS, PE not included below will be deferred to primary provider. RME assessment and note performed by: Brenda Aguilar PA-C This is a 64-year-old female who presents emergency department with concerns of low back pain for the last month. She states that she has taken tizanidine and baclofen prescribed to an urgent care which has provided her without any relief. Pain worsens with movement. She does report that the pain radiates into her left flank. No urinary symptoms. Does admit to having some increased constipation. She also has been taking Tylenol 1000 mg every 4 hours. No known injury or trauma however does report that she rotated a mattress several weeks ago in his unsure if this triggered her symptoms. Plan: X-rays were already performed prior to my evaluation revealing no acute findings. Given some left-sided flank pain as well as overuse and Tylenol, will obtain labs to rule out any acute derangement. Medical Decision Making Medical Decision Making [facility] Narrative: Patient is a 64-year-old female with history of T2 DM, CHF, pulmonary hypertension, HTN, dyslipidemia, JACKSON on CPAP, COPD, gout, obesity, history of PE on Eliquis presenting to the emergency department with complaint of left lower back pain for the past month. On exam patient is awake, A+Ox3, VS WNL, afebrile, normal neurological exam without focal deficits, physical exam findings as above. Given reported symptoms and physical exam findings, initial differential includes but is not limited to initial differential includes lumbar strain, SI joint dysfunction, lumbar radiculopathy, degenerative disc disease, disc herniation, spinal stenosis, spondylosis. Less likely vertebral fracture. Do not suspect malignancy/mass, SEA, cauda equina/cord compression. Labs at baseline. Urinalysis is without evidence of infection. X-ray lumbar spine notable for no acute abnormality. My interpretation is in agreement with the radiologist's interpretation. Discussed with patient that history and physical exam findings are most consistent with muscle strain. Also discussed with patient that she may require physical therapy to improve her symptoms. Offered to provide pain medication to decrease level of pain so that when she returns home her medications are more effective. Patient states that she drove herself to the emergency department but can try to call her brother to see if he is able to drive her home so she is able to receive stronger pain medication. Patient unable to reach her brother. Will discharge patient home with a 1 time dose of 10 mg oxycodone to bring her pain to a reasonable level where she can then continue to take Tylenol and tizanidine as previously recommended. 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 Will also send prescription for short course of prednisone to decrease inflammation, discussed with patient that this can elevate her blood glucose levels. Advised patient to follow up with the PCP on Wednesday as she will likely require physical therapy to improve her symptoms. Return precautions discussed at bedside. Patient verbalized understanding of and agreement with plan. Differential Diagnosis Differential Diagnoses: The differential diagnosis associated with the presentation includes As per [facility] Admission/Observation Consideration of admission/observation: Escalation of care including admission/observation considered Patient would have been admitted to the hospital had their clinical presentation warranted hospital admission. Lab Data [facility] Lab Attestation statement: I reviewed the patient's lab results. As per [facility] 02/10/25 16:19 02/10/25 17:06 Labs: Lab Results 02/10/25 02/10/25 02/10/25 Range/Units 16:19 16:36 17:06 WBC 9.8 (4.8-10.8) X10*3/uL RBC 5.98 H (4.20-5.50) X10*6/uL Hgb 17.2 H (12.0-16.0) g/dl Hct 50.9 H (37.0-47.0) % MCV 85.1 (80.0-98.0) fL MCH 28.8 (27.0-33.0) pg MCHC 33.8 (31.0-35.0) g/dl RDW 16.3 H (11.0-16.0) % Plt Count 163 (160-400) X10*3/uL MPV 10.1 (9.4-12.3) fL Immature Gran % (Auto) 2.8 H (0.0-0.4) % Neut % (Auto) 62.0 (45-73) % Lymph % (Auto) 28.3 (20-40) % Cecil % (Auto) 4.4 (2-11) % Eos % (Auto) 1.9 (0-4) % Baso % (Auto) 0.6 (0-2) % Lymph # (Auto) 2.8 (1.2-4.9) X10*3/uL Cecil # (Auto) 0.4 (0.1-1.2) X10*3/uL Eos # (Auto) 0.2 (0.0-0.4) X10*3/uL Baso # (Auto) 0.1 (0.0-0.2) X10*3/uL Abs Immat Gran (auto) 0.27 H (0.00-0.03) X10*3/uL Absolute Neuts (auto) 6.0 (2.0-8.3) x10*3/uL Absolute Nucleated RBC 0.000 (0.0-0.012) X10*3/uL Nucleated RBC % (auto) 0.0 (0.0-0.2) /100WBC Sodium 141 (135-145) mmol/L Potassium 5.0 (3.3-5.1) mmol/L Chloride 109 H (96-108) mmol/L Carbon Dioxide 21 L (22-29) mmol/L Anion Gap 16 (12-20) BUN 15 (9-16) mg/dL Creatinine 0.78 (0.5-1.4) mg/dL Estim Creat Clear Calc 83.9 Estimated GFR > 60 Random Glucose 79 (60-115) mg/dL Calcium 8.6 (8.4-10.2) mg/dL Total Bilirubin 0.7 (0.0-1.0) mg/dL Direct Bilirubin 0.2 (0.0-0.5) mg/dL AST 58 H (5-31) U/L ALT 48 H (0-31) U/L Alkaline Phosphatase 133 H (39-117) U/L Total Protein 7.0 (6.5-8.0) g/dL Albumin 4.1 (3.5-5.0) g/dL Urine Color Yellow Urine Appearance Clear Urine pH 6.5 (5.0-9.0) Ur Specific [place] 1.015 (1.005-1.025) Urine Protein Trace (Neg-Trace) mg/dL Urine Glucose (UA) Negative (Negative) mg/dL Urine Ketones Negative (Negative) mg/dL Urine Blood Negative (Negative) Urine Nitrite Negative (Negative) Ur Leukocyte Esterase Negative (Negative) Independent Interpretation I performed an independent interpretation of an: Plain X-Ray Interpretation: Lumbar x-ray is without acute abnormality Radiology Impression Discussion of test interpretation with radiology: I have reviewed the radiologist's reading. Radiologist Impression: 3 views lumbar spine Comparison: None provided Findings: Normal alignment. No acute fractures or dislocation. Multilevel disc space narrowing and endplate osteophyte formation, as well as facet hypertrophy. IMPRESSION: No acute findings. External Record Review External record reviewed: Inpatient record, Office record and Outpatient record Prescription Management I considered prescription management with: Pain Medication and Other Discharge Plan Discharge Clinical Impression: Strain of lumbar region Patient Disposition: Home, Self-Care Instructions: Low Back Strain (ED), Back Pain (ED), Lower Back Exercises (ED) Additional Instructions: You were evaluated in the emergency department today for back pain. Your evaluation did not show signs of medical conditions requiring emergent intervention at this time. We recommended that you use Tylenol per package directions every 6 hours as needed for pain. Continue to take the previously prescribed muscle relaxer as directed. You are being prescribed a 1 time dose of oxycodone for severe pain to attempt to bring your pain to a reasonable level and after that you can continue to use Tylenol and the muscle relaxer. You are also being prescribed a short course of prednisone which is a steroid to decrease inflammation. Please note that this medication can increase your glucose levels. Please schedule an appointment for follow-up with your primary care physician on Wednesday as you may require physical therapy to improve your symptoms. Return to the emergency department if you experience worsening back pain, difficulty walking, fevers, numbness, tingling, incontinence, groin numbness or tingling, or any other concerning symptoms. Prescriptions: New oxycodone 5 mg tablet 10 mg PO ONCE Qty: 2 0RF Rx Instructions: Partial Fill upon patient request. prednisone 20 mg tablet 20 mg PO DAILY Qty: 5 0RF No Action montelukast 10 mg tablet 10 mg PO BEDTIME Qty: 90 3RF Eliquis 5 mg tablet 5 mg PO BID Qty: 180 1RF colchicine 0.6 mg tablet 0.6 mg PO DAILY PRN (Reason: for gout pain) Qty: 30 0RF albuterol sulfate [Ventolin HFA] 90 mcg/actuation HFA aerosol inhaler 2 puff INHALATION Q4H PRN (Reason: Shortness Of Breath) 30 Days Qty: 8 3RF (DME) nebulizers Misc See Rx Instructions .Route Qty: 1 0RF Rx Instructions: Nebulizer and supplies to use as directed for updraft treatments albuterol sulfate 2.5 mg /3 mL (0.083 %) solution for nebulization 2.5 mg inhalation QID PRN (Reason: shortness of breath or wheezing) Qty: 90 0RF gabapentin 300 mg capsule 300 mg PO BID 30 Days Qty: 60 5RF atorvastatin 20 mg tablet 20 mg PO BEDTIME Qty: 90 1RF allopurinol 200 mg tablet 400 mg PO DAILY 90 Days Qty: 180 1RF Rx Instructions: 400 mg orally daily; (DME) FreeStyle Ines 3 Plus Sensor Device See Rx Instructions .ROUTE .MEDSUPPLY Qty: 6 4RF Rx Instructions: As directed every 14 days (DME) FreeStyle Ines 3 [place] Misc See Rx Instructions .ROUTE .MEDSUPPLY Qty: 1 0RF Rx Instructions: As directed omeprazole 20 mg capsule,delayed release(DR/EC) 20 mg PO DAILY 90 Days Qty: 90 1RF (DME) blood-glucose meter [FreeStyle Lite Meter] Kit See Rx Instructions .Route Qty: 1 0RF Rx Instructions: As directed to check blood sugars three times a day (DME) lancets [FreeStyle Lancets] 28 gauge misc See Rx Instructions .Route Qty: 100 1RF Rx Instructions: As directed to check blood sugars three times a day hydroxyzine HCl 50 mg tablet 50 mg PO BEDTIME PRN (Reason: for itch) Qty: 90 0RF cholecalciferol (vitamin D3) 125 mcg (5,000 unit) capsule 125 mcg PO DAILY Qty: 90 0RF (DME) FreeStyle Lite Strips Strip See Rx Instructions .Route Qty: 100 1RF Rx Instructions: As directed to check blood sugars three times a day tizanidine 4 mg tablet 4 mg PO BID PRN (Reason: muscle spasticity) 10 Days Qty: 20 0RF spironolactone 25 mg tablet 25 mg PO DAILY torsemide 20 mg tablet 60 mg PO DAILY (DME) FreeStyle Ines 2 [place] Misc See Rx Instructions .Route Qty: 1 0RF Rx Instructions: As directed Uptravi 200 mcg (140)- 800 mcg (60) tablets,dose pack 0 ea PO (DME) pen needle, diabetic 32 gauge x 5/32 needle See Rx Instructions .ROUTE DAILY Qty: 50 11RF Rx Instructions: As directed 1X DAILY acetaminophen 500 mg capsule 1,000 mg PO Q6H PRN (Reason: pain) Qty: 30 0RF (DME) FreeStyle Ines 2 Sensor Kit See Rx Instructions .ROUTE .COMPLEX Qty: 2 11RF Dose Instruction: DIRECTED CHANGE EVERY 14 DAYS Rx Instructions: DIRECTED CHANGE EVERY 14 DAYS Winrevair 45 mg kit subcut Mounjaro 10 mg/0.5 mL pen injector 10 mg subcut QWEEK Qty: 2 5RF Print Language: Romanian
[2025-02-10 16:26] LABS: MANUAL DIFF FLAG NO
[2025-02-10 16:38] LABS: Hematocrit 50.9 % (37.0-47.0); Hemoglobin 17.2 g/dl (12.0-16.0); Imm Gran Abs Auto 0.27 X10*3/uL (0.00-0.03); Imm Gran Pct Auto 2.8 % (0.0-0.4); Lymphocytes Absolute Auto 2.8 X10*3/uL (1.2-4.9); Mean Corpuscular HGB Conc 33.8 g/dl (31.0-35.0); Mean Corpuscular Hemoglobin 28.8 pg (27.0-33.0); Mean Corpuscular Volume 85.1 fL (80.0-98.0); NRBC Abs Auto 0.000 X10*3/uL (0.0-0.012); NRBC Pct Auto 0.0 /100WBC (0.0-0.2); Platelet Count 163 X10*3/uL (160-400); Red Blood Count 5.98 X10*6/uL (4.20-5.50); White Blood Count 9.8 X10*3/uL (4.8-10.8)
[2025-02-10 16:44] LABS: Appearance Urine Clear; Glucose Urine UA Negative (Negative); PH 6.5 (5.0-9.0); Specific Gravity - Urine 1.015 (1.005-1.025)
[2025-02-10 17:13] LABS: Alanine Aminotransferase 48 U/L (0-31); Albumin Level 4.1 g/dL (3.5-5.0); Alkaline Phosphatase 133 U/L (39-117); Anion Gap 16 (12-20); Aspartate Amino Transferase 58 U/L (5-31); Blood Urea Nitrogen 15 mg/dL (9-16); Calcium 8.6 mg/dL (8.4-10.2); Carbon Dioxide 21 mmol/L (22-29); Chloride 109 mmol/L (96-108); Creatinine Clr Calc Pharmacy 83.9; Estimated Glomerular Filt Rate > 60; Potassium 5.0 mmol/L (3.3-5.1); Sodium 141 mmol/L (135-145); Total Protein 7.0 g/dL (6.5-8.0)
[2025-02-10 18:21] VITALS: BP 156/91; PULSE 66; RESP 18; TEMP 36.9; O2SAT 92
== END 2025-02-10 18:36 | disposition home or self-care (01) ==
PROVIDERS: Physician Assistant Medical; Emergency Provider Emergency Medicine; PCP Nurse Practitioner Family
DX: S39.012A Strain of muscle, fascia and tendon of lower back, initial encounter (principal); X58.XXXA Exposure to other specified factors, initial encounter; M54.50 Low back pain, unspecified; E11.9 Type 2 diabetes mellitus without complications; I10 Essential (primary) hypertension; E78.5 Hyperlipidemia, unspecified; F17.200 Nicotine dependence, unspecified, uncomplicated; Z86.711 Personal history of pulmonary embolism; Z79.01 Long term (current) use of anticoagulants; Z79.899 Other long term (current) drug therapy; Y93.9 Activity, unspecified; Y92.9 Unspecified place or not applicable; Y99.9 Unspecified external cause status
CPT/HCPCS: 36415; 72100; 80048; 80076; 81003; 85025; 99283; 99284

== ENCOUNTER → 2025-02-10 13:55 | Outpatient (BNV) | payer OTHER, SELFPAY | PROVIDERS: PCP Nurse Practitioner Family; Visit Provider Radiology Diagnostic Radiology | DX: M51.360 Other intervertebral disc degeneration, lumbar region with discogenic back pain only (principal) | CPT/HCPCS: 72100 ==

== ENCOUNTER 2025-02-13 08:26 | Outpatient (REF) | payer OTHER, SELFPAY ==
--- NOTE | ~2025-02-13 | XR_ITS ---
EXAMINATION: XR SACROILIAC JOINTS CLINICAL INFORMATION: M46.1 - Sacroiliitis, not elsewhere classified COMPARISON: Correlated to CT abdomen pelvis dated February 01, 2016 TECHNIQUE: AP and oblique views. of the sacroiliac joints FINDINGS: Mild sclerotic sacroiliac joints. No acute cortical disruption. No gross lytic or blastic lesions. Degenerative changes in the symphysis pubis. Spondylosis at L4-5. XR/XR sacroiliac joint 1-2V IMPRESSION: No acute fracture. No gross sacroiliitis. Spondylosis L4-5. Degenerative changes symphysis pubis. Electronically signed by: Ajay Cerna MD 02/13/2025 09:43 AM EDT
== END 2025-02-13 08:27 | disposition home or self-care (01) ==
LOC: HO.HMGCX 08:26
PROVIDERS: PCP Nurse Practitioner Family; Visit Provider Nurse Practitioner Family
DX: M46.1 Sacroiliitis, not elsewhere classified (principal); M54.50 Low back pain, unspecified; G89.29 Other chronic pain
CPT/HCPCS: 72200; 96127; 99212

== ENCOUNTER 2025-02-13 08:26 | Outpatient (AMB) | payer OTHER, SELFPAY ==
--- NOTE | 2025-02-13 08:32 | A.OFFPC_ITS ---
Vital Signs 02/13/25 08:35 Weight 232 lb BP 126/90 H Blood Pressure Location Lt brachial Position Sitting Respiration 16 Pulse 86 Pulse Source Pulse Oximeter Pulse Oximetry (%) 94 Oxygen Delivery Method Room Air Intake Visit Reasons: Back pain Sow Farm Manager Required: No Accompanied by: Self / Same As Patient Allergies erythromycin base (From E-MYCIN) Allergy (Severe, Verified 02/13/25 08:35) GI PAIN-SEVERE carvedilol Allergy (Mild, Verified 02/13/25 08:35) upset stomach, sweats Tobacco use date assessed: 02/13/25 Dental Screening Dental Screen Date: 02/13/25 Did you have a dental visit in the last 12 months?: Yes Did you have a dental problem in the last 6 months where you did not have access to dental care?: No Was dental information given to patient?: Patient has dentist HPI Back pain HPI Details Chief Complaint The patient presents with left lower back pain. History of Present Illness The patient is a 64-year-old female presenting with left lower back pain. The pain has persisted for a month, initiated after extensive cleaning activities, possibly related to moving. She has tried baclofen and tizanidine without relief and was given oxycodone and prednisone in the emergency room. The patient reports severe tenderness in the sacroiliac joint regions, more pron ounced on the left side. She denies any radicular symptoms or signs of cauda equina syndrome. The patient is morbidly obese, which may contribute to her symptoms. Social History Health Maintenance Review of Systems - Musculoskeletal: Reports left lower ba ck pain for the past month - Neurological: Denies radicular symptom s or signs of cauda equina syndrome Physical Exam General: Cooperative, healthy appearing, comfortable, no acute distress and well developed Orientation: Patient oriented x3 Limitations: No limitations Head: Normal to inspection Ears: Hearing grossly normal bilaterally Nose: Normal external nose present Face and sinus: Normal facial exam Eyes: Appearance normal, both eyes and all related structures Neck: Normal visual inspection and Yes full ROM Respiratory: Slightly diminished bilaterally Cardiovascular: Regular rate and rhythm. Normal S1 and S2 GI: Normal to inspection. Soft to palpation and nontender Skin: No rashes or lesions noted Neuro: Patient oriented x3 Extremities: Normal to inspection Results Plan The plan includes obtaining sacroiliac joint x-rays to further evaluate the source of pain. A prednisone taper will be prescribed, and the patient will continue with oxycodone for pain management, with instructions to take it as prescribed, avoid driving, not to share med. Referral to [facility] for further evaluation and management has been made, as requested by the patient. Discussion Notes I discussed with the patient the plan to obtain sacroiliac joint x-rays to better understand the cause of her pain. We talked about the use of a prednisone taper and continuing oxycodone for pain management, emphasizing the importance of taking medications as prescribed and avoiding driving while on oxycodone. The patient expressed interest in a referral to [facility], which I have arranged. Patient Instructions - Take prednisone as prescribed in a tap ering dose. - Continue oxycodone for pain management , take only as prescribed, do not share medication, and avoid driving while taking it. - Follow up with [facility] as scheduled. [facility] Medical History Elevated hemoglobin Uncontrolled type 2 diabetes mellitus with hyperglycemia, with long-term current use of insulin Chronic right heart failure History of pulmonary embolism (~02/2021) Pulmonary hypertension COPD (chronic obstructive pulmonary disease) Obstructive sleep apnea on CPAP Personal history of nicotine dependence DM type 2 (diabetes mellitus, type 2) (~09/2016) Dyslipidemia Anxiety Poor balance Urge incontinence Morbid obesity Tachycardia Surgical History History of endometrial ablation (~2003) History of esophagogastroduodenoscopy (EGD) (~2016) History of laparoscopic cholecystectomy (~2020) History of colonoscopy (~2015) History of cardiac cath History of carpal tunnel release (~2001) Family History Father Myocardial infarction Diabetes mellitus Mother Pancreatic cancer Maternal Grandfather Diabetes mellitus Maternal Aunt Pancreatic cancer Maternal Uncle AAA (abdominal aortic aneurysm) Daughter Substance use disorder Mental health disorder Social History Household Members: Family Household Members Other:: Granddaughter Housing: House Housing Other:: Granddaughter Are you a primary career center director to a significant other at home: No Do you presently have visiting nurse or other home services: No Alcohol intake: current Alcohol intake frequency: holidays/special occasions only Comment: patient rings appropriately Patient Tobacco Use Status: Current someday Tobacco user Years Smoked: (onset 19yo - 1/2ppd x 40years - 20pyh - quit in 2020) e-Cigarette/Vaping Use: Never Used Second Hand Smoke Exposure: No Substance Use Type: Marijuana service: No Current occupational status: disabled Cognitive needs: No Hearing needs: No Vision needs: No Questionnaire PHQ-9 Over the last 2 weeks, how often have you been bothered by any of the following problems? 1. Little interest or pleasure in doing things: not at all 2. Feeling down, depressed, or hopeless: not at all 3. Trouble falling or staying asleep, or sleeping too much: several days 4. Feeling tired or having little energy: several days 5. Poor appetite or overeating: not at all 6. Feeling bad about yourself - or that you are a failure or have let yourself or your family down: several days 7. Trouble concentrating on things, such as reading the newspaper or watching television: not at all 8. Moving or speaking so slowly that other people could have noticed. Or the opposite - being so fidgety or restless that you have been moving around a lot more than usual: not at all 9. Thoughts that you would be better off or of hurting yourself in some way: not at all Total score: 3 Depression Screening Interpretation: Negative Depression Screening Done: Yes 54030 - PHQ-9 Billing: Yes Source: Developed by Drs. Chalo Li, Graicela Byrd, Baldo Lofton and colleagues, with an educational lucero from [employer]. Thrive Questionnaire Date Thrive assessed: 07/08/24 I am a: Patient What is your living situation today?: I have a steady place to live Within the past 12 months, did the food you bought not last and you didn't have the money to get more?: I choose not to answer this question Within the past 12 months, did you worry whether your food would run out before you got money to buy more?: I choose not to answer this question Do you have trouble paying for medicines?: No Do you have trouble getting transportation to medical appointments?: I choose not to answer this question Do you have trouble paying your heating and electricity bill?: I choose not to answer this question Do you have trouble taking care of your child, family member or friend?: No Do you have trouble with day-to-day activities such as bathing, preparing meals, shopping, managing finances, etc.?: No Are you currently unemployed and looking for a job?: I choose not to answer this question Are you interested in more education?: No Please select the resources that you would like help with: None Currently or been in a relationship where the following occur: No concerns reported THRIVE Score: 0 PATRICIA-7 AMB Questionnaire PATRICIA-7 Date PATRICIA - 7 assessed: 02/13/25 Feeling nervous, anxious, or on edge: 0 = Not at all Not being able to stop or control worryin = Not at all Worrying too much about different things: 0 = Not at all Trouble relaxin = Not at all Being so restless that it is hard to sit still: 0 = Not at all Becoming easily annoyed or irritable: 0 = Not at all Feeling afraid as if something awful might happen: 0 = Not at all Total PATRICIA-7 score (0-4 normal; 5-9 mild; 10-14 moderate; 15-21 severe): 0 Source: Developed by Drs. Chalo Li, Graciela Byrd, Baldo Lofton and colleagues, with an educational lucero from [employer]. PATRICIA-7 Assessment Billing PATRICIA-7 Assessment Tool: PATRICIA-7 Assessment 94011 Physical exam (Primary Care) Vital Signs: Last Vital Signs Pulse 86 02/13/25 08:35 Resp 16 02/13/25 08:35 BP 126/90 H 02/13/25 08:35 Pulse Ox 94 02/13/25 08:35 Oxygen Delivery Method Room Air 02/13/25 08:35 Tobacco/Smoking Status: Tobacco use Status Tobacco use date assessed 02/13/25 02/13/25 08:40 Patient Tobacco Use Status Current someday Tobacco 02/13/25 08:35 e-Cigarette/Vaping Use Never Used 02/13/25 08:35 PHQ-9: PHQ-9 Score PHQ-9: Total score 3 02/13/25 08:40 Depression Screening Interpretation: Negative Thrive Assessment: Date of Thrive Assessment Date Thrive assessed 07/08/24 02/13/25 08:35 Currently or been in a relationship where the following occur: No concerns reported Coding Level of Care Code Est Pt Level 4 (78546) Diagnoses Chronic lower back pain M54.50; G89.29 SI (sacroiliac) joint inflammation M46.1 Additional Codes PATRICIA-7 Assessment Billing - PATRICIA-7 Assessment Tool: PATRICIA-7 Assessment 97031 ([id number]) PHQ-9 - 15128 - PHQ-9 Billing: Yes ([id number]) Assessment & Plan Assessment & Plan (1) Chronic lower back pain: Code(s): M54.50 - Low back pain, unspecified; G89.29 - Other chronic pain Category: Medical (2) SI (sacroiliac) joint inflammation: Code(s): M46.1 - Sacroiliitis, not elsewhere classified Category: Medical Plan . Orders: Orders XR sacroiliac joint 1-2V Today M46.1 - Sacroiliitis, not elsewhere classified Referrals Sports Medicine Referral G89.29 - Other chronic pain, M46.1 - Sacroiliitis, not elsewhere classified, M54.50 - Low back pain, unspecified Medications: New prednisone 6 tabs for 2 days, 5 tabs for 2 days, 4 tabs for 2 days, 3 tabs for 2 days, 2 tabs for 2 days, 1 tab for 2 days, .5 tab for 2 days 10 mg PO DIRECTED 43 tabs 0RF 14 days oxycodone Partial Fill upon patient request. 5 mg PO BID PRN 14 tabs 0RF pain 7 days Discontinued oxycodone Partial Fill upon patient request. Discontinued Reason: Doctor's Order 10 mg (2 x 5 mg) PO ONCE 2 tabs 0RF severe pain
[2025-02-13 08:35] VITALS: BP 126/90; PULSE 86; RESP 16; O2SAT 94
--- OUTSIDE RECORDS SUMMARY | 2025-02-13 08:43 | XMS_ITS | Encounter Summary ---
Author Organization [facility] Address [address] [place] [address] Phone Care Team Providers Care Cutter Operator Tile Name Role Phone Binh Lopez NP Primary Care Provider + Encounter Details Date Type Department Care Team (Late Contact Info) Description 12/03/2022 Procedure Pass [facility] Cardiac Classroom Instructional Aide [address], [address], [address] [place] [address] Social History Tobacco Use Types [...] Description 03/08/2025 4:30 PM EDT Office Visit [facility] Pulmonary Hypertension Clinic [address] [place] [address], [address] Floor, [address] [place] [address] Annette Sun MD [address] [place] [address] [address] [place] [address] [email or web address] documented as of this encounter Visit Diagnoses Not on filedocumented in this encounter Care Teams Cutter Operator Tile Relationship Specialty Start Date End Date Binh Lopez NP [address] [place] [address] PCP - General Family Medicine 08/22/21 documented as of this encounter Additional Source Comments The information contained in this document represents components of the legal health record. It is not the complete legal health record.[facility]
--- OUTSIDE RECORDS SUMMARY | 2025-02-13 08:43 | XMS_ITS | Clinical Summary ---
Author Organization [facility] Address [address] [place] [id number] Care Team Providers Care Retail Account Manager Name Role Phone Unavailable Primary Care [...]
--- OUTSIDE RECORDS SUMMARY | 2025-02-13 08:43 | XMS_ITS | Clinical Summary ---
Author Organization [facility] Address [address] [place] [address] Care Team Providers Care Fire Claims Adjuster Name Role Phone Unavailable Primary Care Provider Unavailabl e Social History Tobacco Use Types Packs/Day Years Used Date Smoking Tobacco: Never Assessed Sex and Gender Information Value Date Recorded Sex Assigned at Not on file Gender Identity Not on file Sexual Orientation Not on file Plan of Treatment Not on file
== END 2025-02-13 09:17 | disposition home or self-care (01) ==
LOC: HO.HMCC 08:27
PROVIDERS: PCP Nurse Practitioner Family; Visit Provider Nurse Practitioner Family
DX: M54.50 Low back pain, unspecified (principal); G89.29 Other chronic pain; M46.1 Sacroiliitis, not elsewhere classified

== ENCOUNTER → 2025-02-13 09:15 | Outpatient (BNV) | payer OTHER, SELFPAY | PROVIDERS: PCP Nurse Practitioner Family; Visit Provider Radiology Diagnostic Radiology | DX: M46.1 Sacroiliitis, not elsewhere classified (principal); M47.816 Spondylosis without myelopathy or radiculopathy, lumbar region | CPT/HCPCS: 72200 ==

== ENCOUNTER 2025-02-14 11:03 | Outpatient (REF) | payer OTHER, SELFPAY ==
--- OUTSIDE RECORDS SUMMARY | 2025-02-14 12:02 | XMS_ITS | Clinical Summary ---
Author Organization [facility] Address [address] [place] [address] Care Team Providers Care Orthopedic Podiatrist Name Role Phone Unavailable Primary Care Provider Unavailabl e Social History Tobacco Use Types Packs/Day Years Used Date Smoking Tobacco: Never Assessed Sex and Gender Information Value Date Recorded Sex Assigned at Not on file Gender Identity Not on file Sexual Orientation Not on file Plan of Treatment Not on file
--- OUTSIDE RECORDS SUMMARY | 2025-02-14 12:02 | XMS_ITS | Encounter Summary ---
Author Organization [facility] Address [address] [place] [address] Phone Care Team Providers Care Fish Hatchery Manager Name Role Phone Binh Lopez NP Primary Care Provider + Encounter Details Date Type Department Care Team (Late Contact Info) Description 12/03/2022 Procedure Pass [facility] Cardiac Telesales Representative [address], [address] [place] [address] Social History Tobacco Use Types [...] Description 03/08/2025 4:30 PM EDT Office Visit [facility]pert[facility] [address] [place] [address], [address] Floor, [address] [place] [address] Annette Sun MD [address] [place] [address] [address] [place] [address] [email or web address] documented as of this encounter Visit Diagnoses Not on filedocumented in this encounter Care Teams Fish Hatchery Manager Relationship Specialty Start Date End Date Binh Lopez NP [address] [place] [address] PCP - General Family Medicine 08/22/21 documented as of this encounter Additional Source Comments The information contained in this document represents components of the legal health record. It is not the complete legal health record.[facility]
--- OUTSIDE RECORDS SUMMARY | 2025-02-14 12:02 | XMS_ITS | Clinical Summary ---
Author Organization [facility] Address [address] [place] [address] Care Team Providers Care Knobber Name Role Phone Unavailable Primary Care Provider [...] to complete this topic Insurance Medicaid [place] [address]
[2025-02-14 13:46] LABS: Hematocrit 53.0 % (37.0-47.0); Hemoglobin 17.1 g/dl (12.0-16.0); Mean Corpuscular HGB Conc 32.3 g/dl (31.0-35.0); Mean Corpuscular Hemoglobin 28.5 pg (27.0-33.0); Mean Corpuscular Volume 88.5 fL (80.0-98.0); NRBC Abs Auto 0.030 X10*3/uL (0.0-0.012); NRBC Pct Auto 0.2 /100WBC (0.0-0.2); Platelet Count 207 X10*3/uL (160-400); Red Blood Count 5.99 X10*6/uL (4.20-5.50); White Blood Count 12.5 X10*3/uL (4.8-10.8)
== END 2025-02-14 11:04 | disposition home or self-care (01) ==
LOC: HO.HMGCLDS 11:03
PROVIDERS: PCP Nurse Practitioner Family; Visit Provider Internal Medicine Pulmonary Disease
DX: I27.20 Pulmonary hypertension, unspecified (principal)
CPT/HCPCS: 36415; 85027

== ENCOUNTER 2025-03-01 12:54 | Outpatient (REF) | payer OTHER, SELFPAY ==
--- OUTSIDE RECORDS SUMMARY | 2025-03-01 13:34 | XMS_ITS | Clinical Summary ---
Author Organization [facility] Address [address] [place] [address] Phone Care Team Providers Care Tip Tester Name Role Phone Binh Lopez TELEPRINTER Primary Care Provider + Allergies Active Allergy Reactions Criticality Noted Date Comments Carvedilol Unknown 12/02/2022 Pt unsure of reaction Erythromycin Cramps Medium 11/05/2020 Medications albuterol 2.5 mg /3 mL (0.083 %) nebulizer solution 07/10/19 21 Active cholecalciferol (VITAMIN D3) 5,000 unit capsule 10/09/19 21 Active gabapentin (NEURONTIN) 100 MG capsule Take 300 mg by mouth 2 (two) times a day. 09/24/19 21 Active insulin glargine U-300 (TOUJEO SOLOSTAR U-300 INSULIN) 300 unit/mL (1.5 mL) injection pen 15 Units every evening. 10/04/19 21 Active montelukast (SINGULAIR) 10 mg tablet Take 10 mg by mouth every evening. 08/04/19 21 Active omeprazole (PRILOSEC) 40 MG capsule Take 40 mg by mouth daily as needed. 07/07/19 21 Active hydrOXYzine HCL (ATARAX) 10 MG tablet Take 50 mg by mouth nightly at bedtime. Active torsemide (DEMADEX) 20 MG tablet Take 3 tablets (60 mg total) by mouth daily. 90 tablet 11 05/19/20 22 Active colchicine (COLCRYS) 0.6 mg tablet Take 0.6 mg by mouth as needed. Active spironolactone (ALDACTONE) 25 MG tabletIndications:P ulmonary hypertension Take 1 tablet (25 mg total) by mouth daily. 90 tablet 1 11/03/19 24 Active selexipag (UPTRAVI) 1,400 mcg tabletIndications:P ulmonary hypertension Take 1 tablet (1,400 mcg total) by mouth 2 (two) times a day. Swallow tablets whole; do not split, crush, or chew. 60 tablet 11 05/01/20 24 Active Additional Information Patient taking differently:1,400 mcg Oral 2 times daily, Swallow tablets whole; do not split, crush, or chew.1200 mcg in am, 1400 mcg in pm, Reported on 09/05/2024 tirzepatide (MOUNJARO) 2.5 mg/0.5 mL PnIj subcutaneous pen Inject 2.5 mg under the skin every 7 days. Active sildenafiL (REVATIO) 20 mg tabletIndications:P ulmonary hypertension Take 3 tablets (60 mg total) by mouth 3 (three) times a day. 270 tablet 11 10/31/19 25 Active apixaban (ELIQUIS) 2.5 mgIndications:pulmo nary thromboembolism Take 1 tablet (2.5 mg total) by mouth 2 (two) times a day. Indications: a clot in the lung 30 tablet 11 11/07/19 25 Active tadalafiL (CIALIS) 20 MG tabletIndications:P ulmonary hypertension Take 2 tablets (40 mg total) by mouth daily. 60 tablet 11 11/11/19 25 Active magnesium oxide (MAG-OX) 400 mg (241.3 mg elemental) tabletIndications:P ulmonary hypertension, unspecified TAKE 1 TABLET BY MOUTH EVERY DAY 90 tablet 3 11/15/19 25 Active Active Problems Problem Noted Date Diagnosed Date Pulmonary hypertension 05/19/2022 Chronic heart failure with preserved ejection fr action 05/19/2022 JACKSON on CPAP 05/19/2022 Morbid obesity 05/19/2022 2+ pitting edema 11/06/2020 Type 2 diabetes mellitus wit h diabetic polyneuropathy, without long-term current use of insulin 11/06/2020 Encounters Date Type Department Care Team Description 02/15/2025 Telephone [facility] [address], 2nd Floor, [address] [place] [address] Sindi Godinez, CHILO 02/13/2025 Telephone [facility] [address], [address] Floor, [address] [place] [address] Sindi Godinez, CHILO 01/24/2025 Telephone [facility] [address], [address] Floor, [address] [place] [address] Sindi Godinez, CHILO 01/09/2025 Telephone [facility] [address], 2nd Floor, [address] [place] [address] Jennifer Walker, CHILO 12/25/2024 Telephone [facility] [address], 2nd Floor, [address] [place] [address] Jennifer Walker, CHILO 12/11/2024 Telephone [facility] [address], [address] Floor, [address] [place] [address] Sindi Godinez, CHILO 11/30/2024 Telephone [facility] [address], [address] Floor, [address] [place] [address] Jennifer Walker, CHILO from Last 3 Months Family History Medical History Relation Comments Heart attack Father Pancreatic cancer Mother Relation Status Comments Father Mother Social History Tobacco Use Types Packs/Day Years Used Date Smoking Tobacco: Former Cigarettes 1 35 1 985 - 2020 Smokeless Tobacco: Never Alcohol Use Standard Drinks/Week [...] on file Sexual Orientation Not on file Last Filed Vital Signs Vital Sign Reading Time Taken Comments Blood Pressure 120/78 09/02/2023 1:13 PM EST Pulse 72 11/02/2024 12:51 PM EDT Temperature 36.2 C (97.1 F) 09/02/2023 1:13 PM EST Respiratory Rate 18 11/17/2022 1:41 PM EDT Oxygen Saturation 93% 11/02/2024 12:56 PM EDT Inhaled Oxygen Concentration - - Weight 102.1 kg (225 lb) 11/02/2024 11:00 AM EDT Height 157.5 cm (5' 2 ) 11/02/2024 11:00 AM EDT Body Mass Index 41.15 11/02/2024 11:00 AM EDT Plan of Treatment Upcoming Encounters Date Type Department Care Team (Late st Contact Info) Description 03/08/2025 4:30 PM EDT Office Visit [facility] Pul[facility] Hypertension Clinic [address] [place] [address], 2nd Floor, [address] [place] [address] Annette Sun MD [address] [place], [place] [id number] [place] [address] [email or web address] Health Maintenance Due Date Last Done Comments Adult Td,Tdap Booster 1962 HEMOGLOBIN A1C 1962 DEPRESSION SCREENING 1974 HEPATITIS C SCREENING 1980 HIV ONE-TIME SCREENING (18-65 YEARS) 1980 LIPID PANEL 1980 PAP SMEAR 1983 MAMMOGRAM 2002 COLOGUARD 2007 COLONOSCOPY 2007 COLORECTAL CANCER SCREENING 2007 FIT TEST 2007 FOBT 2007 SIGMOIDOSCOPY 2007 VIRTUAL COLONOSCOPY 2007 LUNG CANCER SCREENING (LDCT Only) 2012 ZOSTER VACCINES (1 of 2) 2012 DIABETIC EYE EXAM 11/06/2020 URINE MICROALBUMIN/CREATININE RATIO 11/06/2020 RSV VACCINE (1 - Risk 60-74 years 1-dose series) 2022 BLOOD PRESSURE 03/02/2024 09/02/2023 COVID-19 VACCINE ( season) 2024 10/31/2020, 10/03/2020 INFLUENZA VACCINE (#1) 2025 , 05/19/2020, 04/27/2019, Additional history exists CREATININE LEVEL 09/27/2025 09/27/2024, , 11/17/2022, Additional history exists POTASSIUM LEVEL 09/27/2025 09/27/2024, 08/06, 11/17/2022, Additional history exists PNEUMOCOCCAL VACCINES (50+ years) Completed 06/24/2023 HEPATITIS A VACCINES Aged Out No long er eligible based on patient's age to complete this topic HIB VACCINES Aged Out No longer eligi ble based on patient's age to complete this topic MENINGOCOCCAL VACCINES (ACWY) Aged Out No longer eligible based on patient's age to complete this topic MENINGOCOCCAL VACCINES (B) Aged Out N o longer eligible based on patient's age to complete this topic Medical Devices Not on file Procedures Procedure Name Priority Date/Time Associated Diagnosis Comments OUTSIDE LAB 02/15/2025 OUTSIDE LAB 02/15/2025 OUTSIDE LAB 01/25/2025 OUTSIDE LAB 01/24/2025 OUTSIDE LAB 01/04/2025 OUTSIDE LAB 12/19/2024 COMPREHENSIVE METABOLIC PANEL Routine 09/27/2024 11:23 AM EDT Pulmonary hypertension, unspecified from Last 3 Months or Most Recently Relevant to Health Maintenance Results * Outside Lab (02/15/2025) Only the most recent of6 resultswithin the time period is included. us Scanning Interface Provider LAB BLOOD ORDERABLES Final Result * (ABNORMAL) Comprehensive metabolic panel (09/27/2024 11:23 AM EDT) SODIUM 142 133 - 146 mmol/L [facility] POTASSIUM 4.4 3.3 - 5.1 mmol/L [facility] CHLORIDE 107 96 - 108 mmol/L [facility] CO2 22 21 - 35 mmol/L [facility] BUN 14 6 - 19 mg/dL [facility] CREATININE 0.70 0.5 - 1.5 mg/dL [facility] GLUCOSE 106(H) 70 - 99 mg/dL [facility] ALBUMIN 3.8(L) 3.9 - 4.8 g/dL [facility] TOTAL PROTEIN 6.8 6.5 - 8.0 g/dL [facility] CALCIUM 8.9 8.4 - 10.3 mg/dL [facility] ALKALINE PHOSPHATASE 168(H) 39 - 117 U/L [facility] TOTAL BILIRUBIN 0.6 0.0 - 1.2 mg/dL [facility] AST 13 0 - 37 U/L [facility] ALT 14 0 - 40 U/L [facility] GLOBULIN 3.0 1 - 4.8 g/dL [facility] EGFR 98 >59 mL/min/1.7 3m2 [facility] Comment:Estimated glomerular filtration rate calculated using the CKD-EPI refit equation. ANION GAP 17 10 - 20 mmol/L [facility] Blood 09/27/2024 11:2 3 AM EDT 09/27/2024 11:29 AM EDT us Annette Sun MD LAB BLOOD ORDERABLE S Final Result [facility] [address] [place] [address] from Last 3 Months or Most Recently Relevant to Health Maintenance Insurance [facility] [place] [address] [place] [address] [place] [address] [place] [address] [employer] [facility] Care Teams Tip Tester Relationship Specialty Start Date End Date Binh Lopez NP [address] [place] [address] PCP - General Family Medicine 08/22/21 Additional Source Comments The information contained in this document represents components of the legal health record. It is not the complete legal health record.[facility]
--- OUTSIDE RECORDS SUMMARY | 2025-03-01 13:34 | XMS_ITS | Encounter Summary ---
Author Organization [facility] Address [address] [place] [address] Phone Care Team Providers Care Young Adult Librarian Name Role Phone Binh Lopez NP Primary Care Provider + Encounter Details Date Type Department Care Team (Late Contact Info) Description 11/02/2024 Procedure Pass [facility] Cardiac Shroud Line [address] [facility], [address], [address] [place] [address] Social History Tobacco Use Types [...] Description 03/08/2025 4:30 PM EDT Office Visit [facility] Pulmonary Hypertension Clinic [address] [place] [address], 2nd Floor, [address] [place] [address] Annette Sun MD [address] [place] [address] [address] [place] [address] [email or web address] documented as of this encounter Visit Diagnoses Not on filedocumented in this encounter Care Teams Young Adult Librarian Relationship Specialty Start Date End Date Binh Lopez NP [address] [place] [address] PCP - General Family Medicine 08/22/21 documented as of this encounter Additional Source Comments The information contained in this document represents components of the legal health record. It is not the complete legal health record.[facility]
--- OUTSIDE RECORDS SUMMARY | 2025-03-01 13:34 | XMS_ITS | Encounter Summary ---
Author Organization [facility] Address [address] [place] [address] [place] [address] Phone Care Team Providers Care Customer Support Representative Name Role Phone JewellsánchezBinh NP Primary Care Provider + Encounter Details Date Type Department Care Team (Late st Contact Info) Description 05/19/2022 Procedure Pass [facility] [address] [place] [address] Social History Tobacco Use Types Packs/Day Years Used Date Smoking Tobacco: Former Cigarettes 1 35 1 - 2019 Smokeless Tobacco: Never Alcohol Use Standard Drinks/Week Comments Not Currently 0 (1 standard drink = 0.6 oz pur e alcohol) Comments Unknown Sex and Gender Information Value Date Recorded Sex Assigned at Not on file Legal Sex Female 11:43 AM EDT Gender Identity Not on file Sexual Orientation Not on file documented as of this encounter Plan of Treatment Upcoming Encounters Date Type Department Care Team (Late st Contact Info) Description 03/08/2025 4:30 PM EDT Office Visit [facility] Pulmonary Hypertension Clinic [address] [place] [address], 2nd Floor, [address] [place] [address] Annette Sun MD [address] [place] [address] [address] [place] [address] [email or web address] documented as of this encounter Visit Diagnoses Not on filedocumented in this encounter Care Teams Customer Support Representative Relationship Specialty Start Date End Date Binh Lopez NP [facility] [place] [address] PCP - General Family Medicine 08/22/21 documented as of this encounter Additional Source Comments The information contained in this document represents components of the legal health record. It is not the complete legal health record.[facility]
--- OUTSIDE RECORDS SUMMARY | 2025-03-01 13:34 | XMS_ITS | Encounter Summary ---
Author Organization [facility] Address [address] [place] [address] [address] [place] [address] Phone Care Team Providers Care Manual Writer Name Role Phone JewellsánchezBinh TELLER COORDINATOR Primary Care Provider + Encounter Details Date Type Department Care Team (Late st Contact Info) Description 12/16/2021 Transcribe Orders Virtual Department [address] [place] [address] Luciano Pimentel MD, [place] [address] [id number] [email or web address] Social History Tobacco Use Types Packs/Day Years Used Date Smoking Tobacco: Former Cigarettes 1 35 1 2019 Smokeless Tobacco: Never Alcohol Use Standard [...] Description 03/08/2025 4:30 PM EDT Office Visit [facility] [address], 2nd Floor, [address] [place] [address] Annette Sun MD [address] [place] [address] [address] [place] [address] [email or web address] documented as of this encounter Visit Diagnoses Not on filedocumented in this encounter Care Teams Manual Writer Relationship Specialty Start Date End Date Binh Lopez NP [address] [place] [address] PCP - General Family Medicine 08/22/21 documented as of this encounter Additional Source Comments The information contained in this document represents components of the legal health record. It is not the complete legal health record.[facility]
--- OUTSIDE RECORDS SUMMARY | 2025-03-01 13:34 | XMS_ITS | Clinical Summary ---
Author Organization [facility] Address [address] [place] [address] Care Team Providers Care Pulp Grinder Feeder Name Role Phone Unavailable Primary Care Provider Unavailabl e Social History Tobacco Use Types Packs/Day Years Used Date Smoking Tobacco: Never Assessed Sex and Gender Information Value Date Recorded Sex Assigned at Not on file Gender Identity Not on file Sexual Orientation Not on file Plan of Treatment Not on file
--- OUTSIDE RECORDS SUMMARY | 2025-03-01 13:34 | XMS_ITS | Clinical Summary ---
Author Organization [facility] Address [address] [place] [address] Care Team Providers Care Intranet Support Name Role Phone Unavailable Primary Care Provider [...]
--- OUTSIDE RECORDS SUMMARY | 2025-03-01 13:34 | XMS_ITS | Encounter Summary ---
Author Organization [facility] Address [address] [place] [address] Phone Care Team Providers Care Asset Protection Officer Name Role Phone Binh Lopez NP Primary Care Provider + Encounter Details Date Type Department Care Team (Late st Contact Info) Description 01/01/2022 Procedure Pass [facility] [place] Shank [place]er [address] [facility] [address] [facility], [address] 9, [address] [place] [address] Social History Tobacco Use Types [...] Description 03/08/2025 4:30 PM EDT Office Visit [facility] Clinic [address], 2nd Floor, [address] [place] [address] Annette Sun MD [address] [facility] [address] [place] [address] [email or web address] documented as of this encounter Visit Diagnoses Not on filedocumented in this encounter Care Teams Asset Protection Officer Relationship Specialty Start Date End Date Binh Lopez NP [facility] [place] [address] PCP - General Family Medicine 08/22/21 documented as of this encounter Additional Source Comments The information contained in this document represents components of the legal health record. It is not the complete legal health record.[facility]
--- OUTSIDE RECORDS SUMMARY | 2025-03-01 13:34 | XMS_ITS | Encounter Summary ---
Author Organization [facility] Address [address] [place] [address] [place] [address] Phone Care Team Providers Care Planting Material Remover Name Role Phone Binh Lopez NP Primary Care Provider + Encounter Details Date Type Department Care Team (Late Contact Info) Description 02/23/2023 Procedure Pass [facility] Cardiac US [address] [place] [address] Social History Tobacco Use Types Packs/Day Years [...] Description 03/08/2025 4:30 PM EDT Office Visit [facility] [address] [facility], 2nd Floor, [address] [place] [address] Annette Sun MD [address] [place] [address] [email or web address] documented as of this encounter Visit Diagnoses Not on filedocumented in this encounter Care Teams Planting Material Remover Relationship Specialty Start Date End Date Binh Lopez NP [address] [place] [address] PCP - General Family Medicine 08/22/21 documented as of this encounter Additional Source Comments The information contained in this document represents components of the legal health record. It is not the complete legal health record.[facility]
--- OUTSIDE RECORDS SUMMARY | 2025-03-01 13:34 | XMS_ITS | Encounter Summary ---
Author Organization [facility] Address [address] [place] [address] [place] [address] Phone Care Team Providers Care Multiple Drill Operator Name Role Phone AreliBinh hernandez Elmo CASTELLANOS Primary Care Provider + Encounter Details Date Type Department Care Team (Late st Contact Info) Description 12/16/2021 Transcribe Orders Virtual Department [address] [place] [address] Annette Sun MD [address] [place] [address] [email or web address] Social History Tobacco Use Types Packs/Day Years [...] Description 03/08/2025 4:30 PM EDT Office Visit [facility] Pulmonary Hypertension Clinic [address] [place] [address], 2nd Floor, [address] [place] [address] Annette Sun MD [address] [place] [phone] [email or web address] documented as of this encounter Visit Diagnoses Not on filedocumented in this encounter Care Teams Multiple Drill Operator Relationship Specialty Start Date End Date Binh Lopez NP [facility] [place] [address] PCP - General Family Medicine 08/22/21 documented as of this encounter Additional Source Comments The information contained in this document represents components of the legal health record. It is not the complete legal health record.[facility]
--- OUTSIDE RECORDS SUMMARY | 2025-03-01 13:34 | XMS_ITS | Encounter Summary ---
Author Organization [facility] Address [address] [place] [address] Phone Care Team Providers Care Repairer Recreational Vehicle Name Role Phone Binh Lopez NP Primary Care Provider + Encounter Details Date Type Department Care Team (Late Contact Info) Description 12/03/2022 Procedure Pass [facility] [place] Die Inspector [address] [facility], [address] 9, [address] [place] [address] Social History Tobacco Use Types [...] Description 03/08/2025 4:30 PM EDT Office Visit [facility] [address] [place] [address], 2nd Floor, [address] [place] [address] Annette Sun MD [address] [place] [address] [address] [place] [address] [email or web address] documented as of this encounter Visit Diagnoses Not on filedocumented in this encounter Care Teams Repairer Recreational Vehicle Relationship Specialty Start Date End Date Binh Lopez NP [address] [place] [address] PCP - General Family Medicine 08/22/21 documented as of this encounter Additional Source Comments The information contained in this document represents components of the legal health record. It is not the complete legal health record.[facility]
--- OUTSIDE RECORDS SUMMARY | 2025-03-01 13:34 | XMS_ITS | Encounter Summary ---
Author Organization [facility] Address [address] [place] [address] Phone Care Team Providers Care Professional Development Director Name Role Phone Binh Lopez NP Primary Care Provider + Encounter Details Date Type Department Care Team (Late st Contact Info) Description 05/23/2024 Procedure Pass [facility] [address] [place] [address] Social History Tobacco Use Types Packs/Day Years Used Date Smoking Tobacco: Former Cigarettes 1 35 1 98 - 2019 Smokeless Tobacco: Never Alcohol Use [...] Description 03/08/2025 4:30 PM EDT Office Visit [facility] Pul[facility] Hypertension Clinic [address] [place] [address], 2nd Floor, [address] [place] [address] Annette Sun MD [address] [place] [address] [address] [place] [address] [email or web address] documented as of this encounter Visit Diagnoses Not on filedocumented in this encounter Care Teams Professional Development Director Relationship Specialty Start Date End Date Binh Lopez NP [address] [place] [address] PCP - General Family Medicine 08/22/21 documented as of this encounter Additional Source Comments The information contained in this document represents components of the legal health record. It is not the complete legal health record.[facility]
[2025-03-01 16:16] LABS: MANUAL DIFF FLAG NO
[2025-03-01 16:19] LABS: Hemoglobin 18.8 g/dl (12.0-16.0); Imm Gran Abs Auto 0.22 X10*3/uL (0.00-0.03); Imm Gran Pct Auto 1.8 % (0.0-0.4); Lymphocytes Absolute Auto 2.9 X10*3/uL (1.2-4.9); Mean Corpuscular HGB Conc 32.9 g/dl (31.0-35.0); Mean Corpuscular Hemoglobin 29.3 pg (27.0-33.0); Mean Corpuscular Volume 88.9 fL (80.0-98.0); NRBC Abs Auto 0.000 X10*3/uL (0.0-0.012); NRBC Pct Auto 0.0 /100WBC (0.0-0.2); Platelet Count 174 X10*3/uL (160-400); Red Blood Count 6.42 X10*6/uL (4.20-5.50); White Blood Count 12.4 X10*3/uL (4.8-10.8)
[2025-03-01 16:48] LABS: Hematocrit 57.1 % (37.0-47.0)
== END 2025-03-01 12:55 | disposition home or self-care (01) ==
LOC: HO.HMGCLR 12:54
PROVIDERS: PCP Nurse Practitioner Family; Visit Provider Internal Medicine Pulmonary Disease
DX: I27.20 Pulmonary hypertension, unspecified (principal)
CPT/HCPCS: 36415; 85025

== ENCOUNTER 2025-03-22 13:56 | Outpatient (REF) | payer OTHER, SELFPAY ==
--- OUTSIDE RECORDS SUMMARY | 2025-03-22 15:58 | XMS_ITS | Encounter Summary ---
Author Organization [facility] Address [address] [place] [address] Phone Care Team Providers Care Tissue Technologist Name Role Phone Binh Lopez NP Primary Care Provider + Encounter Details Date Type Department Care Team (Late st Contact Info) Description 12/03/2022 Procedure Pass [facility] Cardiac Insurance Licensing Supervisor [address] [facility], Floor 9, [address] [place] [address] Social History Tobacco Use Types [...] as of this encounter Plan of Treatment Not on file documented as of this encounter Visit Diagnoses Not on filedocumented in this encounter Care Teams Tissue Technologist Relationship Specialty Start Date End Date Binh Lopez NP [facility] [place] [address] PCP - General Family Medicine 08/22/21 documented as of this encounter Additional Source Comments The information contained in this document represents components of the legal health record. It is not the complete legal health record.[facility]
--- OUTSIDE RECORDS SUMMARY | 2025-03-22 15:58 | XMS_ITS | Encounter Summary ---
Author Organization [facility] Address [address] [place] [address] Phone Care Team Providers Care Subacute Nurse Name Role Phone Binh Lopez DERIVATIVES TRADER Primary Care Provider + Encounter Details Date Type Department Care Team (Late st Contact Info) Description 12/16/2021 Transcribe Orders Virtual Department [address] [place] [address] Luciano Pimentel MD, MS [address] [address] [email or web address] Social History Tobacco Use Types Packs/Day Years [...] on filedocumented in this encounter Care Teams Subacute Nurse Relationship Specialty Start Date End Date Binh Lopez NP [address] [facility] [place] [address] PCP - General Family Medicine 08/22/21 documented as of this encounter Additional Source Comments The information contained in this document represents components of the legal health record. It is not the complete legal health record.[facility]
--- OUTSIDE RECORDS SUMMARY | 2025-03-22 15:58 | XMS_ITS | Clinical Summary ---
Author Organization [facility] Address [address] [place] [address] Care Team Providers Care Furniture Maker Name Role Phone Unavailable Primary Care Provider Unavailabl e Social History Tobacco Use Types Packs/Day Years Used Date Smoking Tobacco: Never Assessed Sex and Gender Information Value Date Recorded Sex Assigned at Not on file Gender Identity Not on file Sexual Orientation Not on file Plan of Treatment Not on file
--- OUTSIDE RECORDS SUMMARY | 2025-03-22 15:58 | XMS_ITS | Clinical Summary ---
Author Organization [facility] Address [address] [place] [address] Phone Care Team Providers Care Dipper And Baker Name Role Phone Binh Lopez NP Primary Care Provider + Allergies Active Allergy [...] Encounters Date Type Department Care Team Description 03/02/2025 Documentation [facility] [address] [facility], 2nd Floor, [address] [place] [address] Jennifer Walker RN 02/15/2025 Telephone [facility] [address] [facility], 2nd Floor, [address] [place] [address] Sindi Godinez, CHILO 02/13/2025 Telephone [facility] [address] [facility], 2nd Floor, [address] [place] [address] Sindi Godinez, CHILO 01/24/2025 Telephone [facility] [address] [facility], 2nd Floor, [address] [place] [address] Sindi Godinez, CHILO 01/09/2025 Telephone [facility] [address] [facility], 2nd Floor, [address] [place] [address] Jennifer Walker RN 12/25/2024 Telephone [facility] [address] [facility], 2nd Floor, [address] [place] [address] Jennifer Walker, CHILO from Last 3 Months [...] 11/02/2024 11:00 AM EDT Plan of Treatment Health Maintenance Due Date [...] 1-dose series) 2022 BLOOD PRESSURE 03/02/2024 09/02/2023 INFLUENZA VACCINE (#1) 2025 , 05/19/2020, 04/27/2019, Additional history exists COVID-19 VACCINE ( season) 2025 10/31/2020, 10/03/2020 CREATININE LEVEL 09/27/2025 09/27/2024, , 11/17/2022, Additional [...] Priority Date/Time Associated Diagnosis Comments OUTSIDE LAB 03/06/2025 OUTSIDE LAB 03/02/2025 OUTSIDE LAB 02/15/2025 OUTSIDE LAB 02/15/2025 OUTSIDE LAB 01/25/2025 OUTSIDE LAB 01/24/2025 OUTSIDE LAB 01/04/2025 COMPREHENSIVE METABOLIC PANEL Routine 09/27/2024 11:23 AM EDT Pulmonary hypertension, unspecified from Last 3 Months or Most Recently Relevant to Health Maintenance Results * Outside Lab (03/06/2025) Only the most recent of7 resultswithin the time period is included. us Scanning Interface Provider LAB BLOOD ORDERABLES Final Result * (ABNORMAL) Comprehensive metabolic panel (09/27/2024 11:23 AM EDT) SODIUM 142 133 - 146 mmol/L [facility] POTASSIUM 4.4 3.3 - 5.1 mmol/L [facility] CHLORIDE 107 96 - 108 mmol/L [facility] CO2 22 21 - 35 mmol/L [facility] BUN 14 6 - 19 mg/dL [facility] CREATININE 0.70 0.5 - 1.5 mg/dL [facility] GLUCOSE 106(H) 70 - 99 mg/dL [facility] ALBUMIN 3.8(L) 3.9 - 4.8 g/dL [facility] TOTAL PROTEIN 6.8 6.5 - 8.0 g/dL [facility] CALCIUM 8.9 8.4 - 10.3 mg/dL [facility] ALKALINE PHOSPHATASE 168(H) 39 - 117 U/L [facility] TOTAL BILIRUBIN 0.6 0.0 - 1.2 mg/dL [facility] AST 13 0 - 37 U/L [facility] ALT 14 0 - 40 U/L [facility] GLOBULIN 3.0 1 - 4.8 g/dL [facility] EGFR 98 >59 mL/min/1.7 3m2 [facility] Comment:Estimated glomerular filtration rate calculated using the CKD-EPI refit equation. ANION GAP 17 10 - 20 mmol/L [facility] Blood 09/27/2024 11:2 3 AM EDT 09/27/2024 11:29 AM EDT us Annette Sun MD LAB BLOOD ORDERABLE S Final Result [facility] [address] [place] [address] from Last 3 Months or Most Recently Relevant to Health Maintenance [place] [address] [place] [address] [address] [place] [address] [place] [address] [place] [address] [employer] [place] [id number] Care Teams Dipper And Baker Relationship Specialty Start Date End Date Binh Lopez NP [address] [place] [address] PCP - General Family Medicine 08/22/21 Additional Source Comments The information contained in this document represents components of the legal health record. It is not the complete legal health record.[facility]
--- OUTSIDE RECORDS SUMMARY | 2025-03-22 15:58 | XMS_ITS | Encounter Summary ---
Author Organization [facility] Address [address] [place] [address] Phone Care Team Providers Care Movement Assembler Name Role Phone Binh Lopez WELDER ASSEMBLER Primary Care Provider + Encounter Details Date Type Department Care Team (Late st Contact Info) Description 05/23/2024 Procedure Pass [facility] [address] [place] [address] Social History Tobacco Use Types Packs/Day Years [...] on filedocumented in this encounter Care Teams Movement Assembler Relationship Specialty Start Date End Date Binh Lopez, JASMIN [facility] [address] [place], [place] [address] PCP - General Family Medicine 08/22/21 documented as of this encounter Additional Source Comments The information contained in this document represents components of the legal health record. It is not the complete legal health record.[facility]
--- OUTSIDE RECORDS SUMMARY | 2025-03-22 15:58 | XMS_ITS | Encounter Summary ---
Author Organization [facility] Address [address] [place] [address] Phone Care Team Providers Care Cupola Liner Name Role Phone Binh Lopez GUITAR PLAYER Primary Care Provider + Encounter Details Date Type Department Care Team (Late st Contact Info) Description 05/19/2022 Procedure Pass [facility] [address] [place] [address] Social History Tobacco Use Types Packs/Day Years [...] on filedocumented in this encounter Care Teams Cupola Liner Relationship Specialty Start Date End Date Binh Lopez NP [address] [facility] [place] [address] PCP - General Family Medicine 08/22/21 documented as of this encounter Additional Source Comments The information contained in this document represents components of the legal health record. It is not the complete legal health record.[facility]
--- OUTSIDE RECORDS SUMMARY | 2025-03-22 15:58 | XMS_ITS | Encounter Summary ---
Author Organization [facility] Address [address] [place] [address] [place] [address] Phone Care Team Providers Care Flag Signalman Name Role Phone Binh Lopez MECHANICAL TEST ENGINEER Primary Care Provider + Encounter Details Date Type Department Care Team (Late st Contact Info) Description 02/23/2023 Procedure Pass [facility] [address] [place] [address] Social History Tobacco Use Types Packs/Day Years [...] on filedocumented in this encounter Care Teams Flag Signalman Relationship Specialty Start Date End Date Binh Lopez, JASMIN [facility] [place] [address] PCP - General Family Medicine 08/22/21 documented as of this encounter Additional Source Comments The information contained in this document represents components of the legal health record. It is not the complete legal health record.[facility]
--- OUTSIDE RECORDS SUMMARY | 2025-03-22 15:58 | XMS_ITS | Encounter Summary ---
Author Organization [facility] Address [address] [place] [address] Phone Care Team Providers Care Atomic Welder Name Role Phone Binh Lopez BATCHING OPERATOR Primary Care Provider + Encounter Details Date Type Department Care Team (Late st Contact Info) Description 01/01/[address] [facility] Cardiac Personal Service Representative [address] [facility], Floor 9, [address] [place] [address] Social History Tobacco Use Types [...] on filedocumented in this encounter Care Teams Atomic Welder Relationship Specialty Start Date End Date Binh Lopez NP [address] [place] [address] PCP - General Family Medicine 08/22/21 documented as of this encounter Additional Source Comments The information contained in this document represents components of the legal health record. It is not the complete legal health record.[facility]
--- OUTSIDE RECORDS SUMMARY | 2025-03-22 15:58 | XMS_ITS | Encounter Summary ---
Author Organization [facility] Address [address] [place] [address] Phone Care Team Providers Care Supervisor Knitting Name Role Phone Binh Lopez IT PROGRAMMER ANALYST Primary Care Provider + Encounter Details Date Type Department Care Team (Late st Contact Info) Description 12/16/2021 Transcribe Orders Virtual Department [address] [place] [address] Annette Sun MD [address] [place] [address] [email or web address] Social History Tobacco Use Types Packs/Day Years [...] on filedocumented in this encounter Care Teams Supervisor Knitting Relationship Specialty Start Date End Date Binh Lopez NP [address] [facility] [place] [address] PCP - General Family Medicine 08/22/21 documented as of this encounter Additional Source Comments The information contained in this document represents components of the legal health record. It is not the complete legal health record.[facility]
--- OUTSIDE RECORDS SUMMARY | 2025-03-22 15:59 | XMS_ITS | Clinical Summary ---
Author Organization [facility] Address [address] [place] [address] Care Team Providers Care Operations Recruiter Name Role Phone Unavailable Primary Care Provider [...]
--- OUTSIDE RECORDS SUMMARY | 2025-03-22 15:59 | XMS_ITS | Encounter Summary ---
Author Organization [facility] Address [address] [place] [address] Phone Care Team Providers Care Technology Services Manager Name Role Phone Binh Lopez NP Primary Care Provider + Encounter Details Date Type Department Care Team (Late st Contact Info) Description 11/02/2024 Procedure Pass [facility] [place] Lean Manufacturing Engineer [address] [facility], Floor 9, [address] [place] [address] Social History Tobacco Use Types [...] on filedocumented in this encounter Care Teams Technology Services Manager Relationship Specialty Start Date End Date Binh Lopez NP [facility] [place] [address] PCP - General Family Medicine 08/22/21 documented as of this encounter Additional Source Comments The information contained in this document represents components of the legal health record. It is not the complete legal health record.[facility]
[2025-03-22 16:20] LABS: MANUAL DIFF FLAG NO
[2025-03-22 16:24] LABS: Hematocrit 54.2 % (37.0-47.0); Hemoglobin 18.1 g/dl (12.0-16.0); Imm Gran Abs Auto 0.33 X10*3/uL (0.00-0.03); Imm Gran Pct Auto 2.7 % (0.0-0.4); Lymphocytes Absolute Auto 2.9 X10*3/uL (1.2-4.9); Mean Corpuscular HGB Conc 33.4 g/dl (31.0-35.0); Mean Corpuscular Hemoglobin 29.2 pg (27.0-33.0); Mean Corpuscular Volume 87.6 fL (80.0-98.0); NRBC Abs Auto 0.000 X10*3/uL (0.0-0.012); NRBC Pct Auto 0.0 /100WBC (0.0-0.2); Platelet Count 185 X10*3/uL (160-400); Red Blood Count 6.19 X10*6/uL (4.20-5.50); White Blood Count 12.3 X10*3/uL (4.8-10.8)
== END 2025-03-22 13:57 | disposition home or self-care (01) ==
LOC: HO.HMGCLR 13:56
PROVIDERS: PCP Nurse Practitioner Family; Visit Provider Internal Medicine Pulmonary Disease
DX: I27.20 Pulmonary hypertension, unspecified (principal)
CPT/HCPCS: 36415; 85025

== ENCOUNTER 2025-04-17 12:16 | Outpatient (REF) | payer OTHER, SELFPAY ==
[2025-04-17 13:07] LABS: MANUAL DIFF FLAG NO
[2025-04-17 13:22] LABS: Hemoglobin 19.5 g/dl (12.0-16.0); Imm Gran Abs Auto 0.28 X10*3/uL (0.00-0.03); Imm Gran Pct Auto 2.0 % (0.0-0.4); Lymphocytes Absolute Auto 4.1 X10*3/uL (1.2-4.9); Mean Corpuscular HGB Conc 32.4 g/dl (31.0-35.0); Mean Corpuscular Hemoglobin 28.6 pg (27.0-33.0); Mean Corpuscular Volume 88.3 fL (80.0-98.0); NRBC Abs Auto 0.000 X10*3/uL (0.0-0.012); NRBC Pct Auto 0.0 /100WBC (0.0-0.2); Platelet Count 256 X10*3/uL (160-400); Red Blood Count 6.82 X10*6/uL (4.20-5.50); White Blood Count 14.1 X10*3/uL (4.8-10.8)
[2025-04-17 13:28] LABS: Hematocrit 60.2 % (37.0-47.0)
--- OUTSIDE RECORDS SUMMARY | 2025-04-17 15:00 | XMS_ITS | Encounter Summary ---
Author Organization [facility] Address [address] [place] [address] Phone Care Team Providers Care Low Emission Automobile Designer Name Role Phone Binh Lopez PROCESS TRAINER Primary Care Provider + Encounter Details Date Type Department Care Team (Late st Contact Info) Description 01/01/2022 Procedure Pass [facility] Cardiac Supervisor Model Making [address] [facility], Floor 9, [address] [place] [address] Social History Tobacco Use Types [...] on filedocumented in this encounter Care Teams Low Emission Automobile Designer Relationship Specialty Start Date End Date Binh Lopez NP [address] [facility] [place] [address] PCP - General Family Medicine 08/22/21 documented as of this encounter Additional Source Comments The information contained in this document represents components of the legal health record. It is not the complete legal health record.[facility]
--- OUTSIDE RECORDS SUMMARY | 2025-04-17 15:00 | XMS_ITS | Encounter Summary ---
Author Organization [facility] Address [address] [place] [address] Phone Care Team Providers Care Social Worker Health Services Name Role Phone Binh Lopez ACCOUNTS PAYABLE CLERK Primary Care Provider + Encounter Details Date Type Department Care Team (Late st Contact Info) Description 12/16/2021 Transcribe Orders Virtual Department 30 [place] [address] Annette Sun MD [address] [place] [address] [email or web address] Social History Tobacco Use Types Packs/Day Years [...] on filedocumented in this encounter Care Teams Social Worker Health Services Relationship Specialty Start Date End Date Binh Lopez NP [address] [place] [address] PCP - General Family Medicine 08/22/21 documented as of this encounter Additional Source Comments The information contained in this document represents components of the legal health record. It is not the complete legal health record.[facility]
--- OUTSIDE RECORDS SUMMARY | 2025-04-17 15:00 | XMS_ITS | Encounter Summary ---
Author Organization [facility] Address [address] [place] [address] Phone Care Team Providers Care Principal Librarian Name Role Phone Binh Lopez NP Primary Care Provider + Encounter Details Date Type Department Care Team (Late st Contact Info) Description 04/17/2025 Telephone [facility] [address] [facility], 2nd Floor, [address] [place] [address] Sindi Godinez, RN [address] [place] [address] Social History Tobacco Use Types Packs/Day Years [...] on file documented as of this encounter Progress Notes * Sindi Godinez RN - 04/17/2025 11:41 AM EDT Reached out to patient regarding [facility] message. Patient will have Winrevair labs drawn today at [facility] and this office will review for appropriateness. Patient states she was away and was OFF her Uptravi for one week. Patient awarethat she will need to re-uptitrate and to request new prescription from [facility]. Patient will resume Uptravi 200 mcg BID for one week and uptitrate per protocol. documented in this encounter Plan of Treatment Not on file documented as of this encounter Visit Diagnoses Not on filedocumented in this encounter Care Teams Principal Librarian Relationship Specialty Start Date End Date Binh Lopez NP [address] [place] [address] [place] [address] PCP - General Family Medicine 08/22/21 documented as of this encounter Additional Source Comments The information contained in this document represents components of the legal health record. It is not the complete legal health record.[facility]
--- OUTSIDE RECORDS SUMMARY | 2025-04-17 15:00 | XMS_ITS | Encounter Summary ---
Author Organization [facility] Address [address] [place] [address] Phone Care Team Providers Care Dozer Operator Name Role Phone Binh Lopez NP Primary Care Provider + Encounter Details Date Type Department Care Team (Late st Contact Info) Description 11/02/[address] [facility] Cardiac Business Services Administrator [address] [facility], Floor 9, [address] [place] [address] Social History Tobacco Use Types [...] on filedocumented in this encounter Care Teams Dozer Operator Relationship Specialty Start Date End Date Binh Lopez NP [facility] [place] [place] [address] PCP - General Family Medicine 08/22/21 documented as of this encounter Additional Source Comments The information contained in this document represents components of the legal health record. It is not the complete legal health record.[facility]
--- OUTSIDE RECORDS SUMMARY | 2025-04-17 15:00 | XMS_ITS | Encounter Summary ---
Author Organization [facility] Address [address] [place] [address] Phone Care Team Providers Care Baking Factory Worker Name Role Phone Binh Lopez YARN MAN Primary Care Provider + Encounter Details Date Type Department Care Team (Late st Contact Info) Description 05/19/2022 Procedure Pass [facility] [address] [place] [address] Social History Tobacco Use Types Packs/Day Years Used Date Smoking Tobacco: Former Cigarettes 1 35 1 5 - 2019 Smokeless Tobacco: Never Alcohol Use [...] on filedocumented in this encounter Care Teams Baking Factory Worker Relationship Specialty Start Date End Date Binh Lopez NP [address] [facility] [place] [address] PCP - General Family Medicine 08/22/21 documented as of this encounter Additional Source Comments The information contained in this document represents components of the legal health record. It is not the complete legal health record.[facility]
--- OUTSIDE RECORDS SUMMARY | 2025-04-17 15:00 | XMS_ITS | Encounter Summary ---
Author Organization [facility] Address [address] [place] [address] Phone Care Team Providers Care Life Science Teacher Name Role Phone Binh Lopez NP Primary Care Provider + Encounter Details Date Type Department Care Team (Late st Contact Info) Description 12/03/2022 Procedure Pass [facility] [place] Watershed Tender [address] [facility], Floor 9, [address] [place] [address] Social History Tobacco Use Types [...] on filedocumented in this encounter Care Teams Life Science Teacher Relationship Specialty Start Date End Date Binh Lopez NP [facility] [place] [address] PCP - General Family Medicine 08/22/21 documented as of this encounter Additional Source Comments The information contained in this document represents components of the legal health record. It is not the complete legal health record.[facility]
--- OUTSIDE RECORDS SUMMARY | 2025-04-17 15:00 | XMS_ITS | Encounter Summary ---
Author Organization [facility] Address [address] [place] [address] Phone Care Team Providers Care Rescue Instructor Name Role Phone Binh Lopez DIGITAL STRATEGY DIRECTOR Primary Care Provider + Encounter Details Date Type Department Care Team (Late st Contact Info) Description 12/16/2021 Transcribe Orders Virtual Department [address] [place] [address] Luciano Pimentel MD, MS [address] [address] [email or web address] Social History Tobacco Use Types Packs/Day Years [...] on filedocumented in this encounter Care Teams Rescue Instructor Relationship Specialty Start Date End Date Binh Lopez NP [address] [facility] [place] [address] PCP - General Family Medicine 08/22/21 documented as of this encounter Additional Source Comments The information contained in this document represents components of the legal health record. It is not the complete legal health record.[facility]
--- OUTSIDE RECORDS SUMMARY | 2025-04-17 15:00 | XMS_ITS | Clinical Summary ---
Author Organization [facility] Address [address] [place] [address] Care Team Providers Care Sword Swallower Name Role Phone Unavailable Primary Care Provider Unavailabl e Social History Tobacco Use Types Packs/Day Years Used Date Smoking Tobacco: Never Assessed Sex and Gender Information Value Date Recorded Sex Assigned at Not on file Gender Identity Not on file Sexual Orientation Not on file Plan of Treatment Not on file
--- OUTSIDE RECORDS SUMMARY | 2025-04-17 15:00 | XMS_ITS | Clinical Summary ---
Author Organization [facility] Address [address] [place] [address] Phone Care Team Providers Care Manager Gaming Name Role Phone Binh Lopez NP Primary [...] Encounters Date Type Department Care Team Description 04/17/2025 Telephone [facility] [address] [facility], 2nd Floor, [address] [place] [address] Sindi Godinez, CHILO 03/26/2025 Orders Only [facility] [address] [facility], 2[address] Floor, [address] [place] [address] Sindi Godinez, CHILO On director long term care drug therapy (Primary Dx) 03/26/2025 Orders Only [facility] [address] [facility], 2[address] Floor, [address] [place] [address] Sindi Godinez, CHILO 03/02/2025 Documentation [facility] [address] [facility] [address] [facility], 2nd Floor, [address] [place] [address] Jennifer Walker RN 02/15/2025 Telephone [facility] [address] [facility], 2nd Floor, [address] [place] [address] Sindi Godinez, CHILO 02/13/2025 Telephone [facility] [address] [facility], [address] Floor, [address] [place] [address] Sindi Godinez, CHILO 01/24/2025 Telephone [facility] [address], [address], [address] [place] [address] Sindi Godinez, CHILO from Last 3 Months Family History [...] 2007 LUNG CANCER SCREENING (LDCT Only) 2012 RSV VACCINE (1 - Risk 50-74 years 1-dose series) 2012 ZOSTER VACCINES (1 of 2) 2012 DIABETIC EYE EXAM 11/06/2020 URINE MICROALBUMIN/CREATININE RATIO 11/06/2020 BLOOD PRESSURE 03/02/2024 09/02/2023 INFLUENZA VACCINE (#1) [...] Procedure Name Priority Date/Time Associated Diagnosis Comments CBC AND DIFFERENTIAL Routine 03/22/2025 2:03 PM EDT OUTSIDE LAB 03/06/2025 OUTSIDE LAB 03/02/2025 OUTSIDE LAB 02/15/2025 OUTSIDE LAB 02/15/2025 OUTSIDE LAB 01/25/2025 OUTSIDE LAB 01/24/2025 COMPREHENSIVE METABOLIC PANEL Routine 09/27/2024 11:23 AM EDT Pulmonary hypertension, unspecified from Last 3 Months or Most Recently Relevant to Health Maintenance Results * CBC and differential (03/22/2025 2:03 PM EDT) WBC - External 12.3 RBC - External 17.5 HGB - External 18.1 HCT - External 52.4 Platelets - External 185 MCV - External MCH - External MCHC - External RDW - External MPV - External NRBC - External Absolute NRBC - External Neuts - External Lymphs - External Monos - External Eos - External Basos - External % Immature Grans - External Absolute Neuts - External Absolute Lymphs - External Absolute Monos - External Absolute Eos - External Absolute Basos - External Abs Immature Grans - External Other Cells - External Blood 03/22/2025 2:03 PM EDT us Historical Provider LAB BLOOD ORDERABLES Tiff l Result * Outside Lab (03/06/2025) Only the most recent of6 resultswithin the time period is included. us Scanning Interface Provider LAB BLOOD ORDERABLES Final Result * (ABNORMAL) Comprehensive metabolic panel (09/27/2024 11:23 AM EDT) SODIUM 142 133 - 146 mmol/L [facility] POTASSIUM 4.4 3.3 - 5.1 mmol/L [facility] CHLORIDE 107 96 - 108 mmol/L [facility] CO2 22 21 - 35 mmol/L [facility] BUN 14 6 - 19 mg/dL [facility] CREATININE 0.70 0.5 - 1.5 mg/dL [facility] GLUCOSE 106(H) 70 - 99 mg/dL [facility] ALBUMIN 3.8(L) 3.9 - 4.8 g/dL [facility] TOTAL PROTEIN 6.8 6.5 - 8.0 g/dL [facility] CALCIUM 8.9 8.4 - 10.3 mg/dL [facility] ALKALINE PHOSPHATASE 168(H) 39 - 117 U/L [facility] TOTAL BILIRUBIN 0.6 0.0 - 1.2 mg/dL [facility] AST 13 0 - 37 U/L [facility] ALT 14 0 - 40 U/L [facility] GLOBULIN 3.0 1 - 4.8 g/dL [facility] EGFR 98 >59 mL/min/1.7 3m2 [facility] Comment:Estimated glomerular filtration rate calculated using the CKD-EPI refit equation. ANION GAP 17 10 - 20 mmol/L [facility] Blood 09/27/2024 11:2 3 AM EDT 09/27/2024 11:29 AM EDT us Annette Sun MD LAB BLOOD ORDERABLE S Final Result [facility] [address] [place] [address] from Last 3 Months or Most Recently Relevant to Health Maintenance Insurance [facility] ACO [place]CO [place] [address] [place] [address] ACO [facility] ACO [facility] ACO Care Teams Manager Gaming Relationship Specialty Start Date End Date Binh Lopez NP [address] [place] [address] PCP - General Family Medicine 08/22/21 Additional Source Comments The information contained in this document represents components of the legal health record. It is not the complete legal health record.[facility]
--- OUTSIDE RECORDS SUMMARY | 2025-04-17 15:00 | XMS_ITS | Encounter Summary ---
Author Organization [facility] Address [address] [place] [address] Phone Care Team Providers Care Supervisor Keymodule Assembly Name Role Phone Binh Lopez PROGRAM CLINICIAN Primary Care Provider + Encounter Details Date Type Department Care Team (Late st Contact Info) Description 05/23/2024 Procedure Pass [facility] [address] [place] [address] Social History Tobacco Use Types Packs/Day Years [...] filedocumented in this encounter Care Teams Supervisor Keymodule Assembly Relationship Specialty Start Date End Date Binh Lopez, JASMIN [facility] [address] [place], [place] [address] PCP - General Family Medicine 08/22/21 documented as of this encounter Additional Source Comments The information contained in this document represents components of the legal health record. It is not the complete legal health record.[facility]
--- OUTSIDE RECORDS SUMMARY | 2025-04-17 15:00 | XMS_ITS | Encounter Summary ---
Author Organization [facility] Address [address] [place] [address] [place] [address] Phone Care Team Providers Care Dry Boss Name Role Phone Binh Lopez BUSINESS SUPPORT COORDINATOR Primary Care Provider + Encounter Details Date Type Department Care Team (Late st Contact Info) Description 02/23/2023 Procedure Pass [facility] [address] [place] [address] Social History Tobacco Use Types Packs/Day Years [...] on filedocumented in this encounter Care Teams Dry Boss Relationship Specialty Start Date End Date Binh Lopez, JASMIN [facility] [place] [address] PCP - General Family Medicine 08/22/21 documented as of this encounter Additional Source Comments The information contained in this document represents components of the legal health record. It is not the complete legal health record.[facility]
--- OUTSIDE RECORDS SUMMARY | 2025-04-17 15:01 | XMS_ITS | Clinical Summary ---
Author Organization [facility] Address [address] [place] [address] Care Team Providers Care Raftsman Name Role Phone Unavailable Primary Care Provider [...]
== END 2025-04-17 12:17 | disposition home or self-care (01) ==
LOC: HO.HMGCLR 12:16
PROVIDERS: PCP Nurse Practitioner Family; Visit Provider Internal Medicine Pulmonary Disease
DX: I27.20 Pulmonary hypertension, unspecified (principal)
CPT/HCPCS: 36415; 85025

== ENCOUNTER → 2025-04-26 13:02 | Outpatient (BNV) | payer OTHER, SELFPAY | PROVIDERS: PCP Nurse Practitioner Family; Referring Provider Nurse Practitioner Family; Visit Provider Internal Medicine Medical Oncology | DX: D75.1 Secondary polycythemia (principal); Z80.0 Family history of malignant neoplasm of digestive organs | CPT/HCPCS: 99204 ==

== ENCOUNTER 2025-05-08 12:54 | Outpatient (REF) | payer OTHER, SELFPAY ==
--- OUTSIDE RECORDS SUMMARY | 2025-05-08 15:34 | XMS_ITS | Clinical Summary ---
Author Organization [facility] Address [address] [place] [address] Care Team Providers Care Sped Teacher Name Role Phone Unavailable Primary Care Provider Unavailabl e Social History Tobacco Use Types Packs/Day Years Used Date Smoking Tobacco: Never Assessed Sex and Gender Information Value Date Recorded Sex Assigned at Not on file Gender Identity Not on file Sexual Orientation Not on file Plan of Treatment Not on file
--- OUTSIDE RECORDS SUMMARY | 2025-05-08 15:34 | XMS_ITS | Encounter Summary ---
Author Organization [facility] Address [address] [place] [address] Phone Care Team Providers Care Film Crew Member Name Role Phone Binh Lopez NP Primary Care Provider + Encounter Details Date Type Department Care Team (Late st Contact Info) Description 05/08/2025 Telephone [facility] [address] [facility], 2nd Floor, [address] [place] [address] Sindi Godinez, RN [address] [place] [address] [email or web address] Social History Tobacco Use Types Packs/Day Years [...] Progress Notes * Sindi Godinez RN - 05/08/2025 11:25 AM EST LM requesting call back regarding [employer] surveillance labs. documented in this encounter Plan of Treatment Upcoming Encounters Date Type Department Care Team (Late st Contact Info) Description 07/24/2025 11:30 AM EST Office Visit [facility] [address] [place] [address], 2nd Floor, [address] [place] [address] Annette Sun MD [address] [place] [address] [address] [place] [address] [email or web address] documented as of this encounter Visit Diagnoses Not on filedocumented in this encounter Care Teams Film Crew Member Relationship Specialty Start Date End Date Binh Lopez NP [address] [facility] [address] PCP - General Family Medicine 08/22/21 documented as of this encounter Additional Source Comments The information contained in this document represents components of the legal health record. It is not the complete legal health record.[facility]
--- OUTSIDE RECORDS SUMMARY | 2025-05-08 15:34 | XMS_ITS | Encounter Summary ---
Author Organization [facility] Address [address] [place] [address] [place] [address] Phone Care Team Providers Care Tariff Inspector Name Role Phone Binh Lopez NP Primary Care Provider + Encounter Details Date Type Department Care Team (Late Contact Info) Description 02/23/2023 Procedure Pass [facility] [address] [place] [address] Social History Tobacco Use Types Packs/Day Years [...] Department Care Team (Late Contact Info) Description 07/24/2025 11:30 AM EST Office Visit [facility] [address] [facility], 2nd Floor, [address] [place] [address] Annette Sun MD [address] [place] [address] [email or web address] documented as of this encounter Visit Diagnoses Not on filedocumented in this encounter Care Teams Tariff Inspector Relationship Specialty Start Date End Date Binh Lopez NP [address] [facility] [place] [address] PCP - General Family Medicine 08/22/21 documented as of this encounter Additional Source Comments The information contained in this document represents components of the legal health record. It is not the complete legal health record.[facility]
--- OUTSIDE RECORDS SUMMARY | 2025-05-08 15:34 | XMS_ITS | Encounter Summary ---
Author Organization [facility] Address [address] [place] [address] Phone Care Team Providers Care Engineering Mathematician Name Role Phone Binh Lopez NP Primary Care Provider + Encounter Details Date Type Department Care Team (Late Contact Info) Description 12/03/2022 Procedure Pass [facility] Cardiac Timber Treatment Plant Operator [address] [facility], [address] 9, [address] [place] [address] Social History Tobacco Use Types [...] Description 07/24/2025 11:30 AM EST Office Visit [facility] [address] [facility], 2nd Floor, [address] [place] [address] Annette Sun MD [address] [place] [address] [address] [place] [address] [email or web address] documented as of this encounter Visit Diagnoses Not on filedocumented in this encounter Care Teams Engineering Mathematician Relationship Specialty Start Date End Date Binh Lopez NP [address] [place] [address] PCP - General Family Medicine 08/22/21 documented as of this encounter Additional Source Comments The information contained in this document represents components of the legal health record. It is not the complete legal health record.[facility]
--- OUTSIDE RECORDS SUMMARY | 2025-05-08 15:34 | XMS_ITS | Clinical Summary ---
Author Organization [facility] Address [address] [place] [address] Phone Care Team Providers Care Supervisor Last Model Department Name Role Phone Binh Lopez PREMIUM REPRESENTATIVE Primary Care Provider + Allergies Active Allergy [...] 3 (three) times a day. 270 tablet 10/31/19 25 Active apixaban (ELIQUIS) 2.5 mgIndications:pulmo nary thromboembolism Take 1 tablet (2.5 mg total) by mouth 2 (two) times a day. Indications: a clot in the lung 30 tablet 11/07/19 25 Active tadalafiL (CIALIS) 20 MG tabletIndications:P ulmonary hypertension Take 2 tablets (40 mg total) by mouth daily. 60 tablet 11/11/19 25 Active magnesium oxide (MAG-OX) 400 [...] Encounters Date Type Department Care Team Description 05/08/2025 Telephone [facility] [address] [facility], 2nd Floor, [address] [place] [address] Sindi Godinez, RN 04/24/2025 Telephone [facility] [address] [facility], 2[address] Floor, [address] [place] [address] Sindi Godinez, CHILO 04/18/2025 Telephone [facility] [address] [facility], 2[address] Floor, [address] [place] [address] Sindi Godinez, CHILO 04/18/2025 Orders Only [facility] [address] [facility], 2nd Floor, [address] [place] [address] Sindi Godinez, CHILO 04/17/2025 Telephone [facility] [address] [facility], 2nd Floor, [address] [place] [address] Sindi Godinez, CHILO 03/26/2025 Orders Only [facility] [address] [facility], 2nd Floor, [address] [place] [address] Sindi Godinez, CHILO On intermodal customer service drug therapy (Primary Dx) 03/26/2025 Orders Only [facility] [address] [facility], 2nd Floor, [address] [place] [address] Sindi Godinez, CHILO 03/02/2025 Documentation [facility] [address] [facility], 2nd Floor, [address] [place] [address] Jennifer Walker RN 02/15/2025 Telephone [facility] [address] [facility], 2nd Floor, [address] [place] [address] Sindi Godinez, CHILO 02/13/2025 Telephone [facility] [address] [facility], 2nd Floor, [address] [place] [address] Sindi Godinez, CHILO from Last 3 Months [...] Description 07/24/2025 11:30 AM EST Office Visit [facility] [address] [place] [address], 2nd Floor, [address] [place] [address] Annette Sun MD [address] [place], [place] [address] [place] [address] [email or web address] Health Maintenance Due Date Last Done Comments [...] Priority Date/Time Associated Diagnosis Comments OUTSIDE LAB 04/18/2025 OUTSIDE LAB 04/18/2025 CBC AND DIFFERENTIAL Routine 04/17/2025 12:20 PM EDT CBC AND DIFFERENTIAL Routine 03/22/2025 2:03 PM EDT OUTSIDE LAB 03/06/2025 OUTSIDE LAB 03/02/2025 OUTSIDE LAB 02/15/2025 OUTSIDE LAB 02/15/2025 COMPREHENSIVE METABOLIC PANEL (CMP) Routine 09/27/2024 11:23 AM EDT Pulmonary hypertension, unspecified from Last 3 Months or Most Recently Relevant to Health Maintenance Results * Outside Lab (04/18/2025) Only the most recent of6 resultswithin the time period is included. us Scanning Interface Provider LAB BLOOD BKR ORDERA BLES Final Result * (ABNORMAL) CBC and differential (04/17/2025 12:20 PM EDT) Only the most recent of2 resultswithin the time period is included. WBC - External 14.1(A) 4.8 - 10.8 RBC - External 6.82(A) 4.2 - 5.5 HGB - External 19.5(A) 12.0 - 16.0 HCT - External 60.2(A) 37.0 - 47.0 Platelets - External 256 160 - 400 MCV - External 88.3 80.0 - 98.0 MCH - External 28.6(A) 327 - 33 MCHC - External 32.4 31 - 35 RDW - External 17.2 11 - 1\6 MPV - External 10.8 9.4 - 12.3 NRBC - External 0.0 0.0 - 0.2 Absolute NRBC - External 0 0 - 0.012 Neuts - External 59.9 45 - 73 Lymphs - External 28.8 20 - 40 Monos - External 6.2 2 - 11 Eos - External 2.3 0 - 4 Basos - External 0.8 0 - 2 % Immature Grans - External 2(A) 0.0 - 0.4 Absolute Neuts - External 8.5(A) 2.0 - 8.3 Absolute Lymphs - External 4.1 1.2 - 4.9 Absolute Monos - External 0.9 0.1 - 1.2 Absolute Eos - External 0.3 0.0 - 0.4 Absolute Basos - External 0.1 0.0 - 0.2 Abs Immature Grans - External 0.28(A) 0.0 - 0.03 Other Cells - External Blood 04/17/2025 12:2 0 PM EDT us Historical Provider LAB BLOOD BKR ORDERABLES Final Result * (ABNORMAL) Comprehensive metabolic panel (09/27/2024 11:23 AM EDT) SODIUM 142 133 - 146 mmol/L [facility] POTASSIUM 4.4 3.3 - 5.1 mmol/L [facility] CHLORIDE 107 96 - 108 mmol/L [facility] CO2 22 21 - 35 mmol/L [facility] BUN 14 6 - 19 mg/dL [facility] CREATININE 0.70 0.5 - 1.5 mg/dL [facility] GLUCOSE 106(H) 70 - 99 mg/dL [facility] ALBUMIN 3.8(L) 3.9 - 4.8 g/dL [facility] TOTAL PROTEIN 6.8 6.5 - 8.0 g/dL [facility] CALCIUM 8.9 8.4 - 10.3 mg/dL [facility] ALKALINE PHOSPHATASE 168(H) 39 - 117 U/L [facility] TOTAL BILIRUBIN 0.6 0.0 - 1.2 mg/dL [facility] AST 13 0 - 37 U/L [facility] ALT 14 0 - 40 U/L [facility] GLOBULIN 3.0 1 - 4.8 g/dL [facility] EGFR 98 >59 mL/min/1.7 3m2 [facility] Comment:Estimated glomerular filtration rate calculated using the CKD-EPI refit equation. ANION GAP 17 10 - 20 mmol/L [facility] Blood 09/27/2024 11:2 3 AM EDT 09/27/2024 11:29 AM EDT Annette Sun MD LAB BLOOD BKR ORDER HARLEEN Final Result [facility] [address] [place] [address] from Last 3 Months or Most Recently Relevant to Health Maintenance [place] [place] [address] ACO ACO ACO ACO ACO ACO ACO [facility] ACO [facility] ACO Care Teams Supervisor Last Model Department Relationship Specialty Start Date End Date Binh Lopez NP [address] [facility] [place] [address] PCP - General Family Medicine 08/22/21 Additional Source Comments The information contained in this document represents components of the legal health record. It is not the complete legal health record.[facility]
--- OUTSIDE RECORDS SUMMARY | 2025-05-08 15:34 | XMS_ITS | Encounter Summary ---
Author Organization [facility] Address [address] [place] [address] [place] [address] Phone Care Team Providers Care Drywall Sander Name Role Phone Binh Lopez NP Primary Care Provider + Encounter Details Date Type Department Care Team (Late st Contact Info) Description 05/19/2022 Procedure Pass [facility] [address] [place] [address] Social History Tobacco Use Types Packs/Day Years [...] Description 07/24/2025 11:30 AM EST Office Visit [facility] [address] [place] [address], 2nd Floor, [address] [place] [address] Annette Sun MD [address] [place] [address] [address] [place] [address] [email or web address] documented as of this encounter Visit Diagnoses Not on filedocumented in this encounter Care Teams Drywall Sander Relationship Specialty Start Date End Date Glogowski, Binh Elmo, DISTRIBUTOR ADVERTISING MATERIAL [facility] [place] [address] PCP - General Family Medicine 08/22/21 documented as of this encounter Additional Source Comments The information contained in this document represents components of the legal health record. It is not the complete legal health record.[facility]
--- OUTSIDE RECORDS SUMMARY | 2025-05-08 15:35 | XMS_ITS | Encounter Summary ---
Author Organization [facility] Address [address] [place] [address] [place] [address] Phone Care Team Providers Care Tick Sewer Name Role Phone Binh Lopez NP Primary Care Provider + Encounter Details Date Type Department Care Team (Late st Contact Info) Description 05/23/2024 Procedure Pass [facility] [address] [place] [address] Social History Tobacco Use Types Packs/Day Years [...] Description 07/24/2025 11:30 AM EST Office Visit [facility] [address] [facility], 2nd Floor, [address] [place] [address] Annette Sun MD [address] [facility] [address] [place] [address] [email or web address] documented as of this encounter Visit Diagnoses Not on filedocumented in this encounter Care Teams Tick Sewer Relationship Specialty Start Date End Date Binh Lopez NP [address] [place] [address] PCP - General Family Medicine 08/22/21 documented as of this encounter Additional Source Comments The information contained in this document represents components of the legal health record. It is not the complete legal health record.[facility]
--- OUTSIDE RECORDS SUMMARY | 2025-05-08 15:35 | XMS_ITS | Encounter Summary ---
Author Organization [facility] Address [address] [place] [address] [place] [address] Phone Care Team Providers Care Skin Fitter Name Role Phone AreliBinh hernandez Elmo CASTELLANOS Primary Care Provider + Encounter Details Date Type Department Care Team (Late st Contact Info) Description 12/16/2021 Transcribe Orders Virtual Department [address] [place] [address] Annette Sun MD [address] [place] [address] [email or web address] Social History Tobacco Use Types Packs/Day Years [...] Description 07/24/2025 11:30 AM EST Office Visit [facility] Clinic [address] [place] [address], 2nd Floor, [address] [place] [address] Annette Sun MD [address] [place] [address] [email or web address] documented as of this encounter Visit Diagnoses Not on filedocumented in this encounter Care Teams Skin Fitter Relationship Specialty Start Date End Date Binh Lopez NP [address] [place] [address] PCP - General Family Medicine 08/22/21 documented as of this encounter Additional Source Comments The information contained in this document represents components of the legal health record. It is not the complete legal health record.[facility]
--- OUTSIDE RECORDS SUMMARY | 2025-05-08 15:35 | XMS_ITS | Encounter Summary ---
Author Organization [facility] Address [address] [place] [address] [address] [place] [address] Phone Care Team Providers Care Lumber Sticker Name Role Phone JewellsánchezBinh VOUCHER CLERK Primary Care Provider + Encounter Details Date Type Department Care Team (Late st Contact Info) Description 12/16/2021 Transcribe Orders Virtual Department 30 [place] [address] Luciano Pimentel MD, MS [address] [address] [email or web address] Social History Tobacco Use [...] Description 07/24/2025 11:30 AM EST Office Visit [facility] [place] [facility] [address] [facility], 2nd Floor, [address] [place] [address] Annette Sun MD [address] [place] [address] [address] [place] [address] [email or web address] documented as of this encounter Visit Diagnoses Not on filedocumented in this encounter Care Teams Lumber Sticker Relationship Specialty Start Date End Date Binh Lopez NP [address] [facility] [place] [address] PCP - General Family Medicine 08/22/21 documented as of this encounter Additional Source Comments The information contained in this document represents components of the legal health record. It is not the complete legal health record.[facility]
--- OUTSIDE RECORDS SUMMARY | 2025-05-08 15:35 | XMS_ITS | Encounter Summary ---
Author Organization [facility] Address [address] [facility] [address] [place] [address] Phone Care Team Providers Care Tea Taster Name Role Phone Binh Lopez NP Primary Care Provider + Encounter Details Date Type Department Care Team (Late st Contact Info) Description 01/01/2022 Procedure Pass [facility] [place] Pipe Roller [address] [facility], Floor 9, [address] [place] [address] Social History Tobacco Use Types [...] Description 07/24/2025 11:30 AM EST Office Visit [facility] [place] [facility] [address] [facility], 2nd Floor, [address] [place] [address] Annette Sun MD [address] [facility] [address] [place] [address] [email or web address] documented as of this encounter Visit Diagnoses Not on filedocumented in this encounter Care Teams Tea Taster Relationship Specialty Start Date End Date Binh Lopez NP [facility] [place] [address] PCP - General Family Medicine 08/22/21 documented as of this encounter Additional Source Comments The information contained in this document represents components of the legal health record. It is not the complete legal health record.[facility]
--- OUTSIDE RECORDS SUMMARY | 2025-05-08 15:35 | XMS_ITS | Encounter Summary ---
Author Organization [facility] Address [address] [place] [address] Phone Care Team Providers Care Cocoa Mill Operator Name Role Phone Binh Lopez NP Primary Care Provider + Encounter Details Date Type Department Care Team (Late Contact Info) Description 11/02/2024 Procedure Pass [facility] [place] [place] Cardiac Renewable Energy Consultant [address] [facility], Floor 9, [address] [place] [address] Social History Tobacco Use Types [...] Description 07/24/2025 11:30 AM EST Office Visit [facility] [place] [place] [facility]pertension Clinic [address] [facility], 2nd Floor, [address] [place] [address] Annette Sun MD [address] [place] [address] [address] [place] [address] [email or web address] documented as of this encounter Visit Diagnoses Not on filedocumented in this encounter Care Teams Cocoa Mill Operator Relationship Specialty Start Date End Date Binh Lopez NP [address] [facility] [place] [address] PCP - General Family Medicine 08/22/21 documented as of this encounter Additional Source Comments The information contained in this document represents components of the legal health record. It is not the complete legal health record.[facility]
== END 2025-05-08 12:55 | disposition home or self-care (01) ==
LOC: HO.BBR 12:54
PROVIDERS: PCP Nurse Practitioner Family; Visit Provider Internal Medicine Medical Oncology
DX: Z13.89 Encounter for screening for other disorder (principal)

== ENCOUNTER 2025-05-22 13:00 | Outpatient (REF) | payer OTHER, SELFPAY ==
[2025-05-22 13:11] LABS: MANUAL DIFF FLAG NO
[2025-05-22 13:14] LABS: Hematocrit 51.4 % (37.0-47.0); Hemoglobin 16.3 g/dl (12.0-16.0); Imm Gran Abs Auto 0.43 X10*3/uL (0.00-0.03); Imm Gran Pct Auto 3.9 % (0.0-0.4); Lymphocytes Absolute Auto 2.6 X10*3/uL (1.2-4.9); Mean Corpuscular HGB Conc 31.7 g/dl (31.0-35.0); Mean Corpuscular Hemoglobin 29.3 pg (27.0-33.0); Mean Corpuscular Volume 92.3 fL (80.0-98.0); NRBC Abs Auto 0.020 X10*3/uL (0.0-0.012); NRBC Pct Auto 0.2 /100WBC (0.0-0.2); Platelet Count 192 X10*3/uL (160-400); Red Blood Count 5.57 X10*6/uL (4.20-5.50); White Blood Count 11.0 X10*3/uL (4.8-10.8)
== END 2025-05-22 13:01 | disposition home or self-care (01) ==
LOC: HO.BBR 13:00
PROVIDERS: PCP Nurse Practitioner Family; Visit Provider Internal Medicine Medical Oncology
DX: D75.1 Secondary polycythemia (principal)
CPT/HCPCS: 36415; 85025; 99195

== ENCOUNTER 2025-06-07 09:57 | Outpatient (REF) | payer OTHER, SELFPAY ==
--- OUTSIDE RECORDS SUMMARY | 2025-06-07 11:38 | XMS_ITS | Encounter Summary ---
Author Organization [facility] Address [address] [place] [address] Phone Care Team Providers Care Integration Software Engineer Name Role Phone Binh Lopez NP Primary Care Provider + Encounter Details Date Type Department Care Team (Late Contact Info) Description 12/03/2022 Procedure Pass [facility] [place] Cardiac Rigger Apprentice [address] [facility], Floor 9, [address] [place] [address] Social History Tobacco Use Types [...] Description 07/24/2025 11:30 AM EST Office Visit [facility] [place] [facility] Clinic [address] [facility], 2nd Floor, [address] [place] [address] Annette Sun MD [address] [place] [address] [address] [place] [address] [email or web address] documented as of this encounter Visit Diagnoses Not on filedocumented in this encounter Care Teams Integration Software Engineer Relationship Specialty Start Date End Date Binh Lopez NP [address] [facility] [place] [address] PCP - General Family Medicine 08/22/21 documented as of this encounter Additional Source Comments The information contained in this document represents components of the legal health record. It is not the complete legal health record.[facility]
--- OUTSIDE RECORDS SUMMARY | 2025-06-07 11:38 | XMS_ITS | Clinical Summary ---
Author Organization [facility] Prior to 12/02/[address] [place] [address] Care Team Providers Care Inspector And Mender Name Role Phone Unavailable Primary Care Provider Unavailabl e Social History Tobacco Use Types Packs/Day Years Used Date Smoking Tobacco: Never Assessed Sex and Gender Information Value Date Recorded Sex Assigned at Not on file Gender Identity Not on file Sexual Orientation Not on file Plan of Treatment Not on file
--- OUTSIDE RECORDS SUMMARY | 2025-06-07 11:38 | XMS_ITS | Encounter Summary ---
Author Organization [facility] Address [address] [place] [address] [place] [address] Phone Care Team Providers Care Robotic Welding Operator Name Role Phone Binh Lopez NP Primary Care Provider + Encounter Details Date Type Department Care Team (Late st Contact Info) Description 05/19/2022 Procedure Pass [facility] [address] [place] [address] Social History Tobacco Use Types Packs/Day Years [...] Description 07/24/2025 11:30 AM EST Office [place] [facility] [place] [address] [place] [address], 2nd Floor, [address] [place] [address] Annette Sun MD [address] [place] [address] [address] [place] [address] [email or web address] documented as of this encounter Visit Diagnoses Not on filedocumented in this encounter Care Teams Robotic Welding Operator Relationship Specialty Start Date End Date Glogowski, Binh Elmo, MICROFILM MOUNTER [facility] [place] [address] PCP - General Family Medicine 08/22/21 documented as of this encounter Additional Source Comments The information contained in this document represents components of the legal health record. It is not the complete legal health record.[facility]
--- OUTSIDE RECORDS SUMMARY | 2025-06-07 11:39 | XMS_ITS | Encounter Summary ---
Author Organization [facility] Address [address] [place] [address] [address] [place] [address] Phone Care Team Providers Care Supervisor Filtration Name Role Phone JewellsánchezBinh LOSS CONTROL CONSULTANT Primary Care Provider + Encounter Details Date Type Department Care Team (Late st Contact Info) Description 12/16/2021 Transcribe Orders Virtual Department 30 [place] [address] Luciano Pimentel MD, MS [address] [address] [email or web address] Social History Tobacco Use Types Packs/Day Years [...] Description 07/24/2025 11:30 AM EST Office [place] [facility] [place] [address] [facility], 2nd Floor, [address] [place] [address] Annette Sun MD [address] [place] [address] [address] [place] [address] [email or web address] documented as of this encounter Visit Diagnoses Not on filedocumented in this encounter Care Teams Supervisor Filtration Relationship Specialty Start Date End Date Binh Lopez NP [address] [facility] [place] [address] PCP - General Family Medicine 08/22/21 documented as of this encounter Additional Source Comments The information contained in this document represents components of the legal health record. It is not the complete legal health record.[facility]
--- OUTSIDE RECORDS SUMMARY | 2025-06-07 11:39 | XMS_ITS | Clinical Summary ---
Author Organization [facility] Address [address] [place] [address] Care Team Providers Care Restaurant Team Member Name Role Phone Unavailable Primary Care Provider [...]
--- OUTSIDE RECORDS SUMMARY | 2025-06-07 11:39 | XMS_ITS | Clinical Summary ---
Author Organization [facility] Address [address] [place] [address] Phone Care Team Providers Care Rn Enterostomal Name Role Phone Binh Lopez CONTROL PANEL TESTER Primary Care Provider + Allergies Active Allergy [...] Encounters Date Type Department Care Team Description 05/30/2025 Telephone [facility] [place] [facility] [facility] [address] [facility], 2nd Floor, [address] [place] [address] Sindi Godinez, RN 05/29/2025 Orders Only [facility] [facility] [address] [facility], 2nd Floor, [address] [place] [address] Sindi Godinez, RN 05/28/2025 Telephone [facility] [facility] [address] [facility], 2nd Floor, [address] [place] [address] Sindi Godinez, RN 05/10/2025 Telephone [facility] [facility] [address] [facility], 2nd Floor, [address] [place] [address] Sindi Godinez, RN 05/10/2025 Orders Only [facility] [facility] [address] [facility], 2nd Floor, [address] [place] [address] Sindi Godinez, RN 05/10/2025 Orders Only [facility] [facility] [address] [facility], 2nd Floor, [address] [place] [address] Sindi Godinez, RN 05/08/2025 Telephone [facility] [facility] [address] [facility], 2nd Floor, [address] [place] [address] Sindi Godinez, RN 04/24/2025 Telephone [facility] [facility] [address] [facility], 2nd Floor, [address] [place] [address] Sindi Godinez, RN 04/18/2025 Telephone [facility] [facility] [address] [facility], 2nd Floor, [address] [place] [address] Sindi Godinez, RN 04/18/2025 Orders Only [facility] [facility] [address] [facility], 2nd Floor, [address] [place] [address] Sindi Godinez, RN 04/17/2025 Telephone [facility] [facility] [address] [facility], 2nd Floor, [address] [place] [address] Sindi Godinez, RN 03/26/2025 Orders Only [facility] [facility] [address] [facility], 2nd Floor, [address] [place] [address] Sindi Godinez, CHILO On 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) 03/26/2025 Orders Only [facility] [facility] [address] [facility], 2nd Floor, [address] [place] [address] Sindi Godinez, CHILO from Last 3 Months [...] Description 07/24/2025 11:30 AM EST Office Visit [facility] [facility] [address] [facility], 2nd Floor, [address] [place] [address] Annette Sun MD [address] [place] [address] [address] [place] [address] [email or web address] Maintenance Due Date Last Done Comments [...] 05/19/2020, 04/27/2019, Additional history exists COVID-19 VACCINE (2024- season) 2025 10/31/2020, 10/03/2020 CREATININE LEVEL 04/26/2026 04/26/2025, , 09/02/2023, Additional history exists POTASSIUM LEVEL 04/26/2026 04/26/2025, 09/03, 09/02/2023, Additional history exists PNEUMOCOCCAL VACCINES (50+ years) [...] Priority Date/Time Associated Diagnosis Comments OUTSIDE LAB 05/29/2025 CBC AND DIFFERENTIAL Routine 05/22/2025 1:04 PM EST OUTSIDE LAB 05/10/2025 LFTS (HEPATIC PANEL) Routine 04/26/2025 2:12 PM EDT CBC AND DIFFERENTIAL Routine 04/26/2025 2:12 PM EDT BASIC METABOLIC PANEL (BMP) Routine 04/26/2025 2:12 PM EDT OUTSIDE LAB 04/18/2025 OUTSIDE LAB 04/18/2025 CBC AND DIFFERENTIAL Routine 04/17/2025 12:20 PM EDT CBC AND DIFFERENTIAL Routine 03/22/2025 2:03 PM EDT from Last 3 Months Results * Outside Lab (Non-MGB) (05/29/2025) Only the most recent of4 resultswithin the time period is included. us Scanning Interface Provider LAB BLOOD BKR ORDERA BLES Final Result * (ABNORMAL) CBC and Differential (05/22/2025 1:04 PM EST) Only the most recent of4 resultswithin the time period is included. WBC - External 11(A) 4.8 - 10.8 RBC - External 5.57(A) 4.2 - 5.5 HGB - External 16.3(A) 12 - 16 HCT - External 51.4(A) 37 - 47 Platelets - External 192 160 - 400 MCV - External 92.3 80 - 98 MCH - External 29.3 27 - 33 MCHC - External 31.7 31 - 35 RDW - External 16.2(A) 11 - 16 MPV - External 9.7 9.4 - 12.3 NRBC - External 0.2 0.0 - 0.2 Absolute NRBC - External Neuts - External 63.9 45 - 71 Lymphs - External 23.5 20 - 40 Monos - External 5.4 2 - 11 Eos - External 2.5 0 - 4 Basos - External 0.8 0 - 2 % Immature Grans - External 3.9(A) 0 - 0.4 Absolute Neuts - External Absolute Lymphs - External 2.6 1.2 - 4.9 Absolute Monos - External 0.6 0.1 - 1.2 Absolute Eos - External 0.3 0.0 - 0.4 Absolute Basos - External 0.1 0.0 - 0.2 Abs Immature Grans - External 0.43(A) 0.0 - 0.3 Other Cells - External Blood (Blood) 05/22/2025 1:0 4 PM EST Historical Provider MD LAB BLOOD BKR ORDERABLES Final Result * Hepatic Panel (LFTs) (04/26/2025 2:12 PM EDT) Albumin - External Bilirubin, total - External Bilirubin, direct - External Alkaline Phosphatase - External AST - External 25 5 - 31 ALT - External 14 0 - 31 Protein - External 6.7 6.5 - 8.0 Globulin - External Blood (Blood) 04/26/2025 2:1 2 PM EDT Historical Provider MD LAB BLOOD BKR ORDERABLES Final Result * (ABNORMAL) Basic Metabolic Panel (BMP) (04/26/2025 2:12 PM EDT) Sodium - External 146(A) 135 - 145 Chloride - External 107 96 - 108 Potassium - External 4.3 3.3 - 5.1 CO2 - External 29 22 - 29 BUN - External 12 9 - 16 Creatinine - External 0.8 0.5 - 1.4 Glucose - External 97 60 - 115 Calcium - External 8.8 8.4 - 10.2 eGFR - External >60 Anion Gap - External Blood (Blood) 04/26/2025 2:1 2 PM EDT us Historical Provider LAB BLOOD BKR ORDERABLES Final Result from Last [address] [place] [address] [place] [address] [place] [address] [place] [address] [employer] [place] [address] [place] [address] ACO ACO Care Teams Rn Enterostomal Relationship Specialty Start Date End Date Binh Lopez NP [address] [facility] [address] PCP - General Family Medicine 08/22/21 Additional Source Comments The information contained in this document represents components of the legal health record. It is not the complete legal health record.[facility]
--- OUTSIDE RECORDS SUMMARY | 2025-06-07 11:39 | XMS_ITS | Encounter Summary ---
Author Organization [facility] Address [address] [place] [address] Phone Care Team Providers Care Fire Equipment Inspector Name Role Phone Binh Lopez NP Primary Care Provider + Encounter Details Date Type Department Care Team (Late Contact Info) Description 11/02/2024 Procedure Pass [facility] [place] Cardiac Profile Saw Setup Operator [address] [facility], Floor 9, [address] [place] [address] Social History Tobacco Use Types [...] Description 07/24/2025 11:30 AM EST Office Visit [facility] [place] Pulmonary Hypertension Clinic [address] [facility], 2nd Floor, [address] [place] [address] Annette Sun MD [address] [place] [address] [address] [place] [address] [email or web address] documented as of this encounter Visit Diagnoses Not on filedocumented in this encounter Care Teams Fire Equipment Inspector Relationship Specialty Start Date End Date Binh Lopez NP [address] [place] [address] PCP - General Family Medicine 08/22/21 documented as of this encounter Additional Source Comments The information contained in this document represents components of the legal health record. It is not the complete legal health record.[facility]
--- OUTSIDE RECORDS SUMMARY | 2025-06-07 11:39 | XMS_ITS | Encounter Summary ---
Author Organization [facility] Address [address] [place] [address] [place] [address] Phone Care Team Providers Care Blood Bank Coordinator Name Role Phone Binh Lopez NP Primary Care Provider + Encounter Details Date Type Department Care Team (Late Contact Info) Description 02/23/2023 Procedure Pass [facility] Cardiac US 55 [place] [address] Social History Tobacco Use Types Packs/Day Years [...] Description 07/24/2025 11:30 AM EST Office Visit [facility] [place] Pul[facility] Hypertension Clinic [address] [facility], 2nd Floor, [address] [place] [address] Annette Sun MD [address] [place] [address] [email or web address] documented as of this encounter Visit Diagnoses Not on filedocumented in this encounter Care Teams Blood Bank Coordinator Relationship Specialty Start Date End Date Binh Lopez NP [address] [facility] [address] PCP - General Family Medicine 08/22/21 documented as of this encounter Additional Source Comments The information contained in this document represents components of the legal health record. It is not the complete legal health record.[facility]
--- OUTSIDE RECORDS SUMMARY | 2025-06-07 11:39 | XMS_ITS | Encounter Summary ---
Author Organization [facility] Address [address] [facility] [address] [place] [address] Phone Care Team Providers Care Policy Officer Name Role Phone Binh Lopez NP Primary Care Provider + Encounter Details Date Type Department Care Team (Late st Contact Info) Description 01/01/2022 Procedure Pass [facility] Cardiac District Captain [address] [facility], Floor 9, [address] [place] [address] Social History Tobacco Use Types [...] [place] [facility] [address] [facility], 2nd Floor, [address] [place] [address] Annette Sun MD [address] [facility] [address] [place] [address] [email or web address] documented as of this encounter Visit Diagnoses Not on filedocumented in this encounter Care Teams Policy Officer Relationship Specialty Start Date End Date Binh Lopez NP [facility] [address] PCP - General Family Medicine 08/22/21 documented as of this encounter Additional Source Comments The information contained in this document represents components of the legal health record. It is not the complete legal health record.[facility]
--- OUTSIDE RECORDS SUMMARY | 2025-06-07 11:39 | XMS_ITS | Encounter Summary ---
Author Organization [facility] [place] [facility] Address [address] [place] [address] [place] [address] Phone Care Team Providers Care Welder Gas Tungsten Arc Name Role Phone AreliBinh hernandez Elmo CASTELLANOS Primary Care Provider + Encounter Details Date Type Department Care Team (Late st Contact Info) Description 12/16/2021 Transcribe Orders Virtual Department 30 [place] [address] Annette Sun MD [address] [place] [address] [email or web address] Social History Tobacco Use Types Packs/Day Years [...] Description 07/24/2025 11:30 AM EST Office Visit [facility] [place] [facility] Clinic [address] [place] [address], 2nd Floor, [address] [place] [address] Annette Sun MD [address] [place] [address] [email or web address] documented as of this encounter Visit Diagnoses Not on filedocumented in this encounter Care Teams Welder Gas Tungsten Arc Relationship Specialty Start Date End Date Binh Lopez NP [address] [place] [address] PCP - General Family Medicine 08/22/21 documented as of this encounter Additional Source Comments The information contained in this document represents components of the legal health record. It is not the complete legal health record.[facility] [place] [facility]
--- OUTSIDE RECORDS SUMMARY | 2025-06-07 11:39 | XMS_ITS | Encounter Summary ---
Author Organization [facility] Address [address] [place] [address] [place] [phone] Phone Care Team Providers Care Public Health Director Name Role Phone Binh Lopez NP Primary Care Provider + Encounter Details Date Type Department Care Team (Late st Contact Info) Description 05/23/2024 Procedure Pass [facility] 30 [place] [address] Social History Tobacco Use Types Packs/Day Years [...] [facility] [place] [address] [facility], 2nd Floor, [address] [place] [address] Annette Sun MD [address] [facility] [address] [place] [address] [email or web address] documented as of this encounter Visit Diagnoses Not on filedocumented in this encounter Care Teams Public Health Director Relationship Specialty Start Date End Date Binh Lopez NP [address] [place] [address] PCP - General Family Medicine 08/22/21 documented as of this encounter Additional Source Comments The information contained in this document represents components of the legal health record. It is not the complete legal health record.[facility]
== END 2025-06-07 09:58 | disposition home or self-care (01) ==
LOC: HO.BBR 09:57
PROVIDERS: PCP Nurse Practitioner Family; Visit Provider Internal Medicine Medical Oncology
DX: D75.1 Secondary polycythemia (principal)
CPT/HCPCS: 85018; 99195

== ENCOUNTER 2025-06-12 10:07 | Outpatient (AMB) | payer OTHER, SELFPAY ==
[2025-06-12 10:12] VITALS: BP 112/64; PULSE 97; RESP 16; O2SAT 95; BMI 43.7
--- NOTE | 2025-06-12 10:12 | A.OFFPC_ITS ---
Vital Signs 06/12/25 10:12 Height 5 ft 2 in Weight 239 lb BMI 43.7 BP 112/64 Blood Pressure Location Rt brachial Position Sitting Respiration 16 Pulse 97 Pulse Source Pulse Oximeter Pulse Oximetry (%) 95 Oxygen Delivery Method Room Air Intake Visit Reasons: 5m f/u Acid Extractor Required: No Accompanied by: Self / Same As Patient Allergies erythromycin base (From E-MYCIN) Allergy (Severe, Verified 06/12/25 10:20) GI PAIN-SEVERE carvedilol Allergy (Mild, Verified 06/12/25 10:20) upset stomach, sweats Medication List - Last Reconciled 06/12/25 by Binh Lopez, MILITARY PERSONNEL SPECIALIST- acetaminophen 1,000 mg (2 x 500 mg) PO Q6H PRN albuterol sulfate 2.5 mg (3 mL) inhalation QID PRN allopurinol 400 mg (2 x 200 mg) PO DAILY 90 days amoxicillin-pot clavulanate 875-125 mg 1 tab PO BID 10 days apixaban (Eliquis) 5 mg PO BID atorvastatin 20 mg PO BEDTIME blood sugar diagnostic (FreeStyle Lite Strips) USE DIRECTED TO CHECK BLOOD SUGARS THREE TIMES A DAY blood-glucose meter (FreeStyle Lite Meter kit) As directed to check blood sugars three times a day blood-glucose sensor (FreeStyle Ines 3 Plus Sensor device) As directed every 14 days blood-glucose,senior project manager,cont (FreeStyle Ines 3 [place]) As directed cholecalciferol (vitamin D3) 125 mcg PO DAILY colchicine 0.6 mg PO DAILY PRN flash glucose scanning reader (FreeStyle Ines 2 [place]) As directed flash glucose sensor (FreeStyle Ines 2 Sensor kit) DIRECTED CHANGE EVERY 14 DAYS gabapentin 300 mg PO BID 30 days hydroxyzine HCl 50 mg PO BEDTIME PRN lancets (FreeStyle Lancets) DIRECTED TO CHECK BLOOD SUGARS THREE TIMES A DAY montelukast 10 mg PO BEDTIME nebulizers Nebulizer and supplies to use as directed for updraft treatments omeprazole 20 mg PO DAILY 90 days pen needle, diabetic As directed 1X DAILY selexipag (Uptravi) 200 ea PO BID sotatercept-csrk (Winrevair) 45 mg subcut 3XW spironolactone 25 mg PO DAILY tirzepatide (Mounjaro) 10 mg (0.5 mL) subcut QWEEK tizanidine 4 mg PO BID PRN 10 days torsemide 60 mg PO DAILY Ventolin HFA 90 mcg/actuation (albuterol sulfate) 2 puffs inhalation Q4H PRN 30 days NS Tobacco use date assessed: 06/12/25 Dental Screening Dental Screen Date: 06/12/25 Did you have a dental visit in the last 12 months?: Yes Did you have a dental problem in the last 6 months where you did not have access to dental care?: No Was dental information given to patient?: Patient has dentist HPI 5m f/u HPI Details Chief Complaint The patient presents for a follow-up visit for diabetes and also reports sinus pressure. History of Present Illness The patient is a 64 year old female presenting for a follow-up for diabetes and sinus pressure. She has a history of diabetes, with a recent impressive hem oglobin A1c of 5.6%. She is aware that she is due for an eye exam and to follow up with all specialists. Additionally, the patient reports feeling well overall but has developed some sinus pressure in the frontal and maxillary region. Social History Health Maintenance - The patient is due for an eye exam. - The patient is aware of the need to co ntinue follow-up with all specialists. Review of Systems - General: Reports feeling well. - HEENT: Reports sinus pressure in the f rontal and maxillary region. - Neurological: Reports neuropathy with positive sensation. -denies any CP or increased sob (sees pu lmonary) Physical Exam General: Cooperative, healthy appearing, comfortable, no acute distress and well developed, obese Orientation: Patient oriented x3 Limitations: No limitations Head: Normal to inspection Ears: Hearing grossly normal bilaterally Nose: Normal external nose present Face and sinus: Tenderness with palpation in the frontal and maxillary regions Eyes: Appearance normal, both eyes and all related structures Neck: Normal visual inspection and Yes full ROM Respiratory: Slightly diminished bilaterally, able to speak in complete sentences. Clear to auscultation bilaterally Cardiovascular: Regular rate and rhythm. Normal S1 and S2, no carotid bruits noted GI: Normal to inspection. Soft to palpation and nontender Skin: No rashes or lesions noted Neuro: Patient oriented x3 Extremities: Normal to inspection Results - Labs: Hemoglobin A1c is 5.6%. Plan Patient was informed and verbally consented to the use of an ambient scribe for clinic note documentation during this visit. 1. Diabetes Mellitus The patient's diabetes is well-controlled with a recent hemoglobin A1c of 5.6%. She will continue her current medication regimen. Lab orders have been placed. The patient is advised to follow up with specialists, including getting an eye exam. A follow-up visit is scheduled in six months. 2. Sinusitis The patient has sinus pressure in the frontal and maxillary regions with associated tenderness on palpation. She will be treated for sinusitis. Discussion Notes I discussed with the patient that her diabetes is well-controlled, as indicated by her impressive A1c of 5.6%. We will continue her current medication regimen. I advised her that she is due for an eye exam and should continue her follow-ups with all specialists. Regarding her new symptoms, I noted her report of sinus pressure and the tenderness found on exam, and informed her I will be treating her for a sinus infection. I have put in orders for labs and will see her back in six months. Patient Instructions - Continue taking your current medicatio ns as prescribed. - We have placed orders for you to get l ab work done. - Schedule an eye exam as you are due fo r one. - Make sure to keep up with your follow- up appointments with all of your specialists. - We will treat you for a sinus infectio n based on your symptoms of sinus pressure and tenderness. - Please schedule a follow-up appointmen t to see me again in six months. [facility] Medical History Elevated hemoglobin Uncontrolled type 2 diabetes mellitus with hyperglycemia, with long-term current use of insulin Chronic right heart failure History of pulmonary embolism (~02/2021) Pulmonary hypertension COPD (chronic obstructive pulmonary disease) Obstructive sleep apnea on CPAP Personal history of nicotine dependence DM type 2 (diabetes mellitus, type 2) (~09/2016) Dyslipidemia Anxiety Poor balance Urge incontinence Morbid obesity Tachycardia Surgical History History of endometrial ablation (~2003) History of esophagogastroduodenoscopy (EGD) (~2016) History of laparoscopic cholecystectomy (~2020) History of colonoscopy (~2015) History of cardiac cath History of carpal tunnel release (~2001) Family History Father Myocardial infarction Diabetes mellitus Mother Pancreatic cancer Maternal Grandfather Diabetes mellitus Maternal Aunt Pancreatic cancer Maternal Uncle AAA (abdominal aortic aneurysm) Daughter Substance use disorder Mental health disorder Social History Household Members: Family Household Members Other:: Granddaughter Housing: House Housing Other:: Granddaughter Are you a primary director medicare sales to a significant other at home: No Do you presently have visiting nurse or other home services: No Alcohol intake: current Alcohol intake frequency: holidays/special occasions only Comment: patient rings appropriately Patient Tobacco Use Status: Current someday Tobacco user Years Smoked: (onset 19yo - 1/2ppd x 40years - 20pyh - quit in 2020) e-Cigarette/Vaping Use: Never Used Second Hand Smoke Exposure: No Substance Use Type: Marijuana service: No Current occupational status: disabled Cognitive needs: No Hearing needs: No Vision needs: No Questionnaire PHQ-9 Over the last 2 weeks, how often have you been bothered by any of the following problems? 1. Little interest or pleasure in doing things: not at all 2. Feeling down, depressed, or hopeless: not at all 3. Trouble falling or staying asleep, or sleeping too much: several days 4. Feeling tired or having little energy: several days 5. Poor appetite or overeating: not at all 6. Feeling bad about yourself - or that you are a failure or have let yourself or your family down: several days 7. Trouble concentrating on things, such as reading the newspaper or watching television: not at all 8. Moving or speaking so slowly that other people could have noticed. Or the opposite - being so fidgety or restless that you have been moving around a lot more than usual: not at all 9. Thoughts that you would be better off or of hurting yourself in some way: not at all Total score: 3 Depression Screening Interpretation: Negative Depression Screening Done: Yes 28691 - PHQ-9 Billing: Yes Source: Developed by Drs. Chalo Li, Graciela Byrd, Baldo Lofton and colleagues, with an educational lucero from [email or web address]. Thrive Questionnaire Date Thrive assessed: 07/08/24 I am a: Patient What is your living situation today?: I have a steady place to live Within the past 12 months, did the food you bought not last and you didn't have the money to get more?: I choose not to answer this question Within the past 12 months, did you worry whether your food would run out before you got money to buy more?: I choose not to answer this question Do you have trouble paying for medicines?: No Do you have trouble getting transportation to medical appointments?: I choose not to answer this question Do you have trouble paying your heating and electricity bill?: I choose not to answer this question Do you have trouble taking care of your child, family member or friend?: No Do you have trouble with day-to-day activities such as bathing, preparing meals, shopping, managing finances, etc.?: No Are you currently unemployed and looking for a job?: I choose not to answer this question Are you interested in more education?: No Please select the resources that you would like help with: None Currently or been in a relationship where the following occur: No concerns reported THRIVE Score: 0 PATRICIA-7 AMB Questionnaire PATRICIA-7 Date PATRICIA - 7 assessed: 06/12/25 Feeling nervous, anxious, or on edge: 0 = Not at all Not being able to stop or control worryin = Not at all Worrying too much about different things: 0 = Not at all Trouble relaxin = Not at all Being so restless that it is hard to sit still: 0 = Not at all Becoming easily annoyed or irritable: 0 = Not at all Feeling afraid as if something awful might happen: 0 = Not at all Total PATRICIA-7 score (0-4 normal; 5-9 mild; 10-14 moderate; 15-21 severe): 0 Source: Developed by Drs. Chalo Li, Graciela Byrd, Baldo Lofton and colleagues, with an educational lucero from [email or web address]. PATRICIA-7 Assessment Billing PATRICIA-7 Assessment Tool: PATRICIA-7 Assessment 08868 Physical exam (Primary Care) Vital Signs: Last Vital Signs Pulse 97 06/12/25 10:12 Resp 16 06/12/25 10:12 BP 112/64 06/12/25 10:12 Pulse Ox 95 06/12/25 10:12 Oxygen Delivery Method Room Air 06/12/25 10:12 BMI result Body Mass Index 43.7 Tobacco/Smoking Status: Tobacco use Status Tobacco use date assessed 06/12/25 06/12/25 10:14 Patient Tobacco Use Status Current someday Tobacco 06/12/25 10:14 e-Cigarette/Vaping Use Never Used 06/12/25 10:14 PHQ-9: PHQ-9 Score PHQ-9: Total score 3 06/12/25 10:14 Depression Screening Interpretation: Negative Thrive Assessment: Date of Thrive Assessment Date Thrive assessed 07/08/24 06/12/25 10:14 Currently or been in a relationship where the following occur: No concerns reported Coding Level of Care Code Est Pt Level 3 (57137) Diagnoses DM type 2 (diabetes mellitus, type 2) E11.9 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 mellitus 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 insulin use: without 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 use Laterality: left Vitamin D deficiency E55.9 Additional Codes PATRICIA-7 Assessment Billing - PATRICIA-7 Assessment Tool: PATRICIA-7 Assessment 39274 ([id number]) PHQ-9 - 30643 - PHQ-9 Billing: Yes ([id number]) Assessment & Plan Assessment & Plan (1) DM type 2 (diabetes mellitus, type 2): Onset Date: ~09/2016 Code(s): E11.9 - Type 2 diabetes mellitus without complications Category: Medical Qualifiers: Diabetes mellitus alf insulin use: without alf use Laterality: left (2) Vitamin D deficiency: Code(s): E55.9 - Vitamin D deficiency, unspecified Category: Medical Plan . Orders: Orders AMB Hemoglobin A1c Today E11.9 - Type 2 diabetes mellitus without complications Complete Blood Count Auto Diff Today E11.9 - Type 2 diabetes mellitus without complications Comprehensive [place]. Panel Fast Today E11.9 - Type 2 diabetes mellitus without complications TSH reflex Free T4 Today E11.9 - Type 2 diabetes mellitus without complications UA CC w/rflx Micro + Cult Today E11.9 - Type 2 diabetes mellitus without complications Lipid Panel Today E11.9 - Type 2 diabetes mellitus without complications Vitamin D 25-OH Total Today E11.9 - Type 2 diabetes mellitus without complications, E55.9 - Vitamin D deficiency, unspecified Medications: New amoxicillin-pot clavulanate 875-125 mg 1 tab PO BID 20 tabs 0RF 10 days
== END 2025-06-12 11:38 | disposition home or self-care (01) ==
LOC: HO.HMCC 10:08
PROVIDERS: PCP Nurse Practitioner Family; Visit Provider Nurse Practitioner Family
DX: E11.9 Type 2 diabetes mellitus without complications (principal); E55.9 Vitamin D deficiency, unspecified; Z23 Encounter for immunization

== ENCOUNTER → 2025-06-12 10:07 | Outpatient (BNVA) | payer OTHER, SELFPAY | PROVIDERS: PCP Nurse Practitioner Family; Visit Provider Nurse Practitioner Family | DX: E11.9 Type 2 diabetes mellitus without complications (principal); J32.9 Chronic sinusitis, unspecified; E55.9 Vitamin D deficiency, unspecified; Z23 Encounter for immunization | CPT/HCPCS: 83036; 90471; 90656; 96127; 99212 ==

== ENCOUNTER 2025-06-14 11:35 | Outpatient (REF) | payer OTHER, SELFPAY ==
[2025-06-14 13:38] LABS: MANUAL DIFF FLAG NO
[2025-06-14 14:00] LABS: Hematocrit 48.3 % (37.0-47.0); Hemoglobin 15.3 g/dl (12.0-16.0); Imm Gran Abs Auto 0.32 X10*3/uL (0.00-0.03); Imm Gran Pct Auto 3.1 % (0.0-0.4); Lymphocytes Absolute Auto 2.5 X10*3/uL (1.2-4.9); Mean Corpuscular HGB Conc 31.7 g/dl (31.0-35.0); Mean Corpuscular Hemoglobin 29.1 pg (27.0-33.0); Mean Corpuscular Volume 92.0 fL (80.0-98.0); NRBC Abs Auto 0.040 X10*3/uL (0.0-0.012); NRBC Pct Auto 0.4 /100WBC (0.0-0.2); Platelet Count 245 X10*3/uL (160-400); Red Blood Count 5.25 X10*6/uL (4.20-5.50); White Blood Count 10.3 X10*3/uL (4.8-10.8)
[2025-06-14 14:56] LABS: Alanine Aminotransferase 21 U/L (0-31); Albumin Level 4.1 g/dL (3.5-5.0); Alkaline Phosphatase 130 U/L (39-117); Anion Gap 12 (12-20); Aspartate Amino Transferase 22 U/L (5-31); Blood Urea Nitrogen 13 mg/dL (9-16); Calcium 8.7 mg/dL (8.4-10.2); Carbon Dioxide 25 mmol/L (22-29); Chloride 108 mmol/L (96-108); Estimated Glomerular Filt Rate > 60; Potassium 4.2 mmol/L (3.3-5.1); Sodium 141 mmol/L (135-145); Total Protein 6.5 g/dL (6.5-8.0); Uric Acid 6.3 mg/dL (2.4-5.7)
--- OUTSIDE RECORDS SUMMARY | 2025-06-14 18:02 | XMS_ITS | Encounter Summary ---
Author Organization [facility] Address [address] [place] [address] Phone Care Team Providers Care American Indian Studies Professor Name Role Phone Binh Lopez NP Primary Care Provider + Encounter Details Date Type Department Care Team (Late Contact Info) Description 12/03/2022 Procedure Pass [facility] [place] Motor Rebuilder [address], [address], [address] [place] [address] Social History Tobacco Use Types [...] Description 07/24/2025 11:30 AM EST Office Visit [facility] [address], 2nd Floor, [address] [place] [address] Annette Sun MD [address] [place] [address] [address] [place] [address] [email or web address] documented as of this encounter Visit Diagnoses Not on filedocumented in this encounter Care Teams American Indian Studies Professor Relationship Specialty Start Date End Date Binh Lopez NP [address] [place] [id number] PCP - General Family Medicine 08/22/21 documented as of this encounter Additional Source Comments The information contained in this document represents components of the legal health record. It is not the complete legal health record.[facility]
--- OUTSIDE RECORDS SUMMARY | 2025-06-14 18:05 | XMS_ITS | Encounter Summary ---
Author Organization [facility] Address [address] [place] [address] [place] [address] Phone Care Team Providers Care Acetylene Cylinder Packing Mixer Name Role Phone Binh Lopez NP Primary Care Provider + Encounter Details Date Type Department Care Team (Late st Contact Info) Description 05/19/2022 Procedure Pass [facility] [address] [place] [address] Social History Tobacco Use Types Packs/Day Years [...] Description 07/24/2025 11:30 AM EST Office Visit [facility] Pul[facility] Hypertension Clinic [address] [place] [address], 2nd Floor, [address] [place] [address] Annette Sun MD [address] [place] [address] [address] [place] [address] [email or web address] documented as of this encounter Visit Diagnoses Not on filedocumented in this encounter Care Teams Acetylene Cylinder Packing Mixer Relationship Specialty Start Date End Date Glogowski, Binh Elmo, MACHINE SHOP REPAIR TECHNICIAN [facility] [place] [address] PCP - General Family Medicine 08/22/21 documented as of this encounter Additional Source Comments The information contained in this document represents components of the legal health record. It is not the complete legal health record.[facility]
--- OUTSIDE RECORDS SUMMARY | 2025-06-14 18:06 | XMS_ITS | Clinical Summary ---
Author Organization [facility] Address [address] [place] [address] Phone Care Team Providers Care Dry Cleaner Apprentice Name Role Phone Binh Lopez NP Primary [...] Encounters Date Type Department Care Team Description 06/14/2025 Telephone [facility] [address], 2nd Floor, [address] [place] [address] Sindi Godinez, RN 05/30/2025 Telephone [facility] [address], 2nd Floor, [address] [place] [address] Sindi Godinez, RN 05/29/2025 Orders Only [facility] [address], 2nd Floor, [address] [place] [address] Sindi Godinez, RN 05/28/2025 Telephone [facility] [address], 2nd Floor, [address] [place] [address] Sindi Godinez, RN 05/10/2025 Telephone [facility] [address] [facility], 2nd Floor, [address] [place] [address] Sindi Godinez, RN 05/10/2025 Orders Only [facility] [address] [facility], 2nd Floor, [address] [place] [address] Sindi Godinez, RN 05/10/2025 Orders Only [facility] [address] [facility], 2nd Floor, [address] [place] [address] Sindi Godinez, RN 05/08/2025 Telephone [facility] [address] [facility], 2nd Floor, [address] [place] [address] Sindi Godinez, RN 04/24/2025 Telephone [facility] [address], 2nd Floor, [address] [place] [address] Sindi Godinez, RN 04/18/2025 Telephone [facility] [address], 2nd Floor, [address] [place] [address] Sindi Godinez, RN 04/18/2025 Orders Only [facility] [address] [facility], 2nd Floor, [address] [place] [address] Sindi Godinez, RN 04/17/2025 Telephone [facility] [address], 2nd Floor, [address] [place] [address] Sindi Godinez, CHILO 03/26/2025 Orders Only [facility] [address], 2nd Floor, [address] [place] [address] Sindi Godinez, CHILO On senior living drug therapy (Primary Dx) 03/26/2025 Orders Only [facility] [address], 2nd Floor, [address] [place] [address] Sindi Godinez, CHILO from Last 3 Months [...] 11:30 AM EST Office Visit [facility] [address] [place] [address], 2nd Floor, [address] [place] [address] Annette Sun MD [address] [place] [address] [address] [place] [address] [email or web address] Health Maintenance Due Date Last [...] 05/19/2020, 04/27/2019, Additional history exists COVID-19 VACCINE (3 - 2024- season) 2025 10/31/2020, 10/03/2020 CREATININE LEVEL 04/26/2026 04/26/2025, , 09/02/2023, Additional history exists POTASSIUM LEVEL 04/26/2026 04/26/2025, 03/12/2024, 09/02/2023, Additional history exists PNEUMOCOCCAL VACCINES (50+ [...] Final Result from Last 3 Months Insurance ACO ACO ACO [place] [address] [place] [address] [place] [address] [place] [address] [place] [address] ACO [facility] ACO Care Teams Dry Cleaner Apprentice Relationship Specialty Start Date End Date Binh Lopez NP [address] [place] [address] PCP - General Family Medicine 08/22/21 Additional Source Comments The information contained in this document represents components of the legal health record. It is not the complete legal health record.[facility]
--- OUTSIDE RECORDS SUMMARY | 2025-06-14 18:06 | XMS_ITS | Encounter Summary ---
Author Organization [facility] Address [address] [place] [address] [place] [address] Phone Care Team Providers Care Rivet Bucker Name Role Phone Binh Lopez NP Primary Care Provider + Encounter Details Date Type Department Care Team (Late Contact Info) Description 02/23/2023 Procedure Pass [facility] Cardiac US [address] [place] [address] Social History Tobacco Use Types Packs/Day Years [...] Description 07/24/2025 11:30 AM EST Office Visit [facility] [place] Pulmonary Hypertension Clinic [address], 2nd Floor, [address] [place] [address] Annette uSn MD [address] [place] [address] [email or web address] documented as of this encounter Visit Diagnoses Not on filedocumented in this encounter Care Teams Rivet Bucker Relationship Specialty Start Date End Date Binh Lopez NP [address] [place] [address] PCP - General Family Medicine 08/22/21 documented as of this encounter Additional Source Comments The information contained in this document represents components of the legal health record. It is not the complete legal health record.[facility]
--- OUTSIDE RECORDS SUMMARY | 2025-06-14 18:06 | XMS_ITS | Encounter Summary ---
Author Organization [facility] Address [address] [place] [address] Phone Care Team Providers Care Melter Supervisor Electric Arc Furnace Name Role Phone Binh Lopez NP Primary Care Provider + Encounter Details Date Type Department Care Team (Late st Contact Info) Description 06/14/2025 Telephone [facility] [place] [address], 2nd Floor, [address] [place] [address] Sindi Godinez, RN [address] [place] [address] [email or web address] Social History Tobacco Use Types [...] Progress Notes * Sindi Godinez RN - 06/14/2025 10:13 AM EST Patient having Winrevair labs drawn today. documented in this encounter Plan of Treatment Upcoming Encounters Date Type Department Care Team (Late st Contact Info) Description 07/24/2025 11:30 AM EST Office Visit [facility] [address] [place] [address], 2nd Floor, [address] [place] [address] Annette Sun MD [address] [place] [address] [address] [place] [address] [email or web address] documented as of this encounter Visit Diagnoses Not on filedocumented in this encounter Care Teams Melter Supervisor Electric Arc Furnace Relationship Specialty Start Date End Date Binh Lopez NP [address] [place] [address] PCP - General Family Medicine 08/22/21 documented as of this encounter Additional Source Comments The information contained in this document represents components of the legal health record. It is not the complete legal health record.[facility]
--- OUTSIDE RECORDS SUMMARY | 2025-06-14 18:07 | XMS_ITS | Encounter Summary ---
Author Organization [facility] Address [address] [place] [address] Phone Care Team Providers Care Suppository Molding Machine Operator Name Role Phone Binh Lopez NP Primary Care Provider + Encounter Details Date Type Department Care Team (Late st Contact Info) Description 01/01/2022 Procedure Pass [facility] Cardiac Chief Innovation Officer [address] [facility], Floor 9, [address] [place] [address] Social History Tobacco Use Types [...] Description 07/24/2025 11:30 AM EST Office Visit [facility] Pulmonary Hypertension Clinic [address] [facility], 2nd Floor, [address] [place] [address] Annette Sun MD [address] [facility] [address] [place] [address] [email or web address] documented as of this encounter Visit Diagnoses Not on filedocumented in this encounter Care Teams Suppository Molding Machine Operator Relationship Specialty Start Date End Date Binh Lopez NP [facility] [place] [address] PCP - General Family Medicine 08/22/21 documented as of this encounter Additional Source Comments The information contained in this document represents components of the legal health record. It is not the complete legal health record.[facility]
--- OUTSIDE RECORDS SUMMARY | 2025-06-14 18:07 | XMS_ITS | Encounter Summary ---
Author Organization [facility] Address [address] [place] [address] [place] [address] Phone Care Team Providers Care Radio Despatcher Name Role Phone Binh Lopez NP Primary Care Provider + Encounter Details Date Type Department Care Team (Late st Contact Info) Description 05/23/2024 Procedure Pass [facility] 30 [place] [address] Social History Tobacco Use Types Packs/Day Years [...] Description 07/24/2025 11:30 AM EST Office Visit [facility]pertension Clinic [address] [facility], 2nd Floor, [address] [place] [address] Annette Sun MD [address] [facility] [address] [place] [address] [email or web address] documented as of this encounter Visit Diagnoses Not on filedocumented in this encounter Care Teams Radio Despatcher Relationship Specialty Start Date End Date Binh Lopez NP [address] [facility] [place] [address] PCP - General Family Medicine 08/22/21 documented as of this encounter Additional Source Comments The information contained in this document represents components of the legal health record. It is not the complete legal health record.[facility]
--- OUTSIDE RECORDS SUMMARY | 2025-06-14 18:08 | XMS_ITS | Encounter Summary ---
Author Organization [facility] Address [address] [place] [address] Phone Care Team Providers Care Pilot Teacher Name Role Phone Binh Lopez NP Primary Care Provider + Encounter Details Date Type Department Care Team (Late Contact Info) Description 11/02/2024 Procedure Pass [facility] Cardiac Security Architect [address] [facility], Floor 9, [address] [place] [address] Social History Tobacco Use Types [...] Description 07/24/2025 11:30 AM EST Office Visit [facility] Pulmonary Hypertension Clinic [address] [facility], 2nd Floor, [address] [place] [address] Annette Sun MD [address] [place] [address] [address] [place] [address] [email or web address] documented as of this encounter Visit Diagnoses Not on filedocumented in this encounter Care Teams Pilot Teacher Relationship Specialty Start Date End Date Binh Lopez NP [address] [facility] [place] [address] PCP - General Family Medicine 08/22/21 documented as of this encounter Additional Source Comments The information contained in this document represents components of the legal health record. It is not the complete legal health record.[facility]
--- OUTSIDE RECORDS SUMMARY | 2025-06-14 18:08 | XMS_ITS | Encounter Summary ---
Author Organization [facility] Address [address] [place] [address] [address] [place] [address] Phone Care Team Providers Care Grease Machine Worker Name Role Phone JewellsánchezBinh REGIONAL RECRUITER Primary Care Provider + Encounter Details Date Type Department Care Team (Late st Contact Info) Description 12/16/2021 Transcribe Orders Virtual Department 30 [place] [address] Luciano Pimentel MD, MS [address] [address] [email or web address] Social History Tobacco Use Types Packs/Day Years [...] Description 07/24/2025 11:30 AM EST Office Visit [facility] Pulmonary Hypertension Clinic [address] [facility], 2nd Floor, [address] [place] [address] Annette Sun MD [address] [place] [address] [address] [place] [address] [email or web address] documented as of this encounter Visit Diagnoses Not on filedocumented in this encounter Care Teams Grease Machine Worker Relationship Specialty Start Date End Date Binh Lopez NP [address] [facility] [place] [address] PCP - General Family Medicine 08/22/21 documented as of this encounter Additional Source Comments The information contained in this document represents components of the legal health record. It is not the complete legal health record.[facility]
--- OUTSIDE RECORDS SUMMARY | 2025-06-14 18:08 | XMS_ITS | Encounter Summary ---
Author Organization [facility] Address [address] [place] [address] [place] [address] Phone Care Team Providers Care Environmental Aid Name Role Phone AreliBinh hernandez Elmo CASTELLANOS Primary Care Provider + Encounter Details Date Type Department Care Team (Late st Contact Info) Description 12/16/2021 Transcribe Orders Virtual Department 30 [place] [address] Annette Sun MD [address] [place] [address] [email or web address] Social History Tobacco Use Types Packs/Day [...] Description 07/24/2025 11:30 AM EST Office Visit [facility] Pulmonary Hypertension Clinic [address] [place] [address], 2nd Floor, [address] [place] [address] Annette Sun MD [address] [place] [address] [email or web address] documented as of this encounter Visit Diagnoses Not on filedocumented in this encounter Care Teams Environmental Aid Relationship Specialty Start Date End Date Binh Lopez NP [address] [place] [address] PCP - General Family Medicine 08/22/21 documented as of this encounter Additional Source Comments The information contained in this document represents components of the legal health record. It is not the complete legal health record.[facility]
== END 2025-06-14 11:36 ==
LOC: HO.HMGCLDS 11:35
PROVIDERS: Absent Provider Internal Medicine Pulmonary Disease; PCP Nurse Practitioner Family; Visit Provider Student in an Organized Health Care Education/Training Program
DX: M1A.09X0 Idiopathic chronic gout, multiple sites, without tophus (tophi) (principal); I27.20 Pulmonary hypertension, unspecified
CPT/HCPCS: 36415; 80053; 84550; 85025

== ENCOUNTER 2025-06-21 13:03 | Outpatient (REF) | payer OTHER, SELFPAY ==
[2025-06-21 13:16] LABS: Hematocrit 47.2 % (37.0-47.0); Hemoglobin 15.0 g/dl (12.0-16.0); Mean Corpuscular HGB Conc 31.8 g/dl (31.0-35.0); Mean Corpuscular Hemoglobin 29.3 pg (27.0-33.0); Mean Corpuscular Volume 92.2 fL (80.0-98.0); NRBC Abs Auto 0.050 X10*3/uL (0.0-0.012); NRBC Pct Auto 0.5 /100WBC (0.0-0.2); Platelet Count 216 X10*3/uL (160-400); Red Blood Count 5.12 X10*6/uL (4.20-5.50); White Blood Count 10.5 X10*3/uL (4.8-10.8)
[2025-06-21 13:46] LABS: Band Neutrophils Percent 1 % (3-5); Eosinophils Absolute Manual 0.2 X10*3/uL (0.0-0.4); Eosinophils Percent Manual 2 % (0-4); Lymphocytes Absolute Manual 3.2 X10*3/uL (1.2-4.9); Lymphocytes Percent Manual 30 % (20-40); Monocytes Absolute Manual 0.7 X10*3/uL (0.1-1.2); Monocytes Percent Manual 7 % (2-11); Neutrophils Absolute Manual 6.4 X10*3/uL (2.0-8.3); Neutrophils Percent Manual 60 % (45-73)
[2025-06-21 13:48] LABS: Polychromasia 1+ (0-2) /OIF; RBC Morphology NOTED
--- OUTSIDE RECORDS SUMMARY | 2025-06-21 16:59 | XMS_ITS | Encounter Summary ---
Author Organization [facility] Address [address] [place] [address] Phone Care Team Providers Care Tail Dogger Name Role Phone Binh Lopez NP Primary Care Provider + Encounter Details Date Type Department Care Team (Late st Contact Info) Description 11/02/2024 Procedure Pass [facility] Cardiac Gem Setter [address] [facility], [address] 9, [address] [place] [address] Social History Tobacco Use Types [...] Description 07/24/2025 11:30 AM EST Office Visit [facility] Pulmonary-Hypertension Clinic [address] [facility], 2nd Floor, [address] [place] [address] Annette Sun MD [address] [place] [address] [address] [place] [address] PADDY@[email or web address] documented as of this encounter Visit Diagnoses Not on filedocumented in this encounter Care Teams Tail Dogger Relationship Specialty Start Date End Date Binh Lopez NP [address] [facility] [place] [address] PCP - General Family Medicine 08/22/21 documented as of this encounter Additional Source Comments The information contained in this document represents components of the legal health record. It is not the complete legal health record.[facility]
--- OUTSIDE RECORDS SUMMARY | 2025-06-21 16:59 | XMS_ITS | Encounter Summary ---
Author Organization [facility] Address [address] [facility] [address] [place] [address] Phone Care Team Providers Care Contact Lens Blocker Name Role Phone Binh Lopez NP Primary Care Provider + Encounter Details Date Type Department Care Team (Late st Contact Info) Description 01/01/2022 Procedure Pass [facility] Cardiac Timber Hand [address] [facility], Floor 9, [address] [place] [address] Social History Tobacco Use Types [...] Description 07/24/2025 11:30 AM EST Office Visit [facility] Pulmonary-Hypertension Clinic [address] [facility], 2nd Floor, [address] [place] [address] Annette Sun MD [address] [place] [address] PADDY@[email or web address] documented as of this encounter Visit Diagnoses Not on filedocumented in this encounter Care Teams Contact Lens Blocker Relationship Specialty Start Date End Date Binh Lopez NP [facility] [place] [address] PCP - General Family Medicine 08/22/21 documented as of this encounter Additional Source Comments The information contained in this document represents components of the legal health record. It is not the complete legal health record.[facility]
--- OUTSIDE RECORDS SUMMARY | 2025-06-21 16:59 | XMS_ITS | Encounter Summary ---
Author Organization [facility] Address [address] [facility] [place] [address] Phone Care Team Providers Care Bander Operator Name Role Phone JewellsánchezBinh NP Primary Care Provider + Encounter Details Date Type Department Care Team (Late st Contact Info) Description 06/19/2025 Documentation [facility] Pulmonary-Hypertension Clinic [address] [facility], 2nd Floor, [address] [place] [address] Sindi Godinez, CHILO [address] [place] [address] [email or web address] Social History Tobacco Use Types Packs/Day Years [...] of this encounter Progress Notes * Sindi Godinez, CHILO - 06/19/2025 1:09 PM EST Hi Laura, Your labs were reviewed and you can continue with your next dose of Winrevair 0.7mg/kg. Please have your next labs due on or around 07/06/25. After your next CBC, we can review with Dr. Crum about decreasing the frequency of your surveillance labs to every six weeks. Let me know if you have any questions and can you please confirm receipt of this message? Thanks, Shruti Patient confirmed receipt of above message. documented in this encounter Plan of Treatment Upcoming Encounters Date Type Department Care Team (Late st Contact Info) Description 07/24/2025 11:30 AM EST Office Visit [facility] Pulmonary-Hypertension Clinic [address] [place] [address], 2nd Floor, [address] [place] [address] Annette Sun MD [address] [place] [address] [place] [address] PADDY@[email or web address] documented as of this encounter Visit Diagnoses Not on filedocumented in this encounter Care Teams Bander Operator Relationship Specialty Start Date End Date Binh Lopez NP [facility] [place] [place] [address] PCP - General Family Medicine 08/22/21 documented as of this encounter Additional Source Comments The information contained in this document represents components of the legal health record. It is not the complete legal health record.[facility]
--- OUTSIDE RECORDS SUMMARY | 2025-06-21 16:59 | XMS_ITS | Encounter Summary ---
Author Organization [facility] Address [address] [place] [address] [address] [place] [address] Phone Care Team Providers Care Counselor Manager Name Role Phone JewellsánchezBinh NP Primary Care Provider + Encounter Details Date Type Department Care Team (Late st Contact Info) Description 05/19/2022 Procedure Pass [facility] 30 [place] [address] Social History Tobacco Use Types Packs/Day Years [...] Description 07/24/2025 11:30 AM EST Office Visit [facility] Pulmonary-Hypertension Clinic [address] [place] [address], 2nd Floor, [address] [place] [address] Annette Sun MD [address] [place] [address] [address] [place] [address] PADDY@[email or web address] documented as of this encounter Visit Diagnoses Not on filedocumented in this encounter Care Teams Counselor Manager Relationship Specialty Start Date End Date Binh Lopez NP [facility] [place] [address] PCP - General Family Medicine 08/22/21 documented as of this encounter Additional Source Comments The information contained in this document represents components of the legal health record. It is not the complete legal health record.[facility]
--- OUTSIDE RECORDS SUMMARY | 2025-06-21 16:59 | XMS_ITS | Encounter Summary ---
Author Organization [facility] Address [address] [facility] [place] [address] Phone Care Team Providers Care Fat Pressroom Worker Name Role Phone Binh Lopez NP Primary Care Provider + Encounter Details Date Type Department Care Team (Late st Contact Info) Description 12/03/2022 Procedure Pass [facility] Cardiac Toll Booth Operator [address] [facility], Floor 9, [address] [place] [address] Social History Tobacco Use Types [...] Description 07/24/2025 11:30 AM EST Office Visit [facility] Pulmonary-Hypertension Clinic [address] [facility], 2nd Floor, [address] [place] [address] Annette Sun MD [address] [place] [address] [address] [place] [address] PADDY@[email or web address] documented as of this encounter Visit Diagnoses Not on filedocumented in this encounter Care Teams Fat Pressroom Worker Relationship Specialty Start Date End Date Binh Lopez NP [address] [place] [address] PCP - General Family Medicine 08/22/21 documented as of this encounter Additional Source Comments The information contained in this document represents components of the legal health record. It is not the complete legal health record.[facility]
--- OUTSIDE RECORDS SUMMARY | 2025-06-21 16:59 | XMS_ITS | Encounter Summary ---
Author Organization [facility] Address [address] [place] [address] Phone Care Team Providers Care Party Plan Salesperson Name Role Phone Binh Lopez NP Primary Care Provider + Encounter Details Date Type Department Care Team (Late st Contact Info) Description 06/19/2025 Orders Only [facility] Pulmonary-Hypertension Clinic [address] [facility], 2nd Floor, [address] [place] [address] Sindi Godinez, RN [address] [place] [address] [email or web address] Social History Tobacco Use Types [...] Description 07/24/2025 11:30 AM EST Office Visit [facility]Hypert[facility] [address] [facility], 2nd Floor, [address] [place] [address] Annette Sun MD [address] [place], [place] [address] [place] [address] PADDY@[email or web address] documented as of this encounter Procedures Procedure Name Priority Date/Time Associated Diagnosis Comments CBC AND DIFFERENTIAL Routine 06/14/2025 11:46 AM EST documented in this encounter Results * (ABNORMAL) CBC and Differential (06/14/2025 11:46 AM EST) WBC - External 10.3 4.8 - 10.8 RBC - External 5.25 4.2 - 5.5 HGB - External 15.3 12 - 16 HCT - External 48.3(A) 37 - 47 Platelets - External 245 160 - 400 MCV - External 92.0 80 - 98 MCH - External 29.1 27 - 33 MCHC - External 31.7 31 - 35 RDW - External 16.2(A) 11 - 16 MPV - External 10 9.4 - 12.3 NRBC - External 0.4 0 - 2 Absolute NRBC - External Neuts - External 65.9 45 - 73 Lymphs - External 24.3 20 - 40 Monos - External 3.5 2 - 11 Eos - External 2.2 0 - 4 Basos - External 0.9 0 - 2 % Immature Grans - External 3.1(A) 0 - 0.4 Absolute Neuts - External 6.8 2.0 - 8.3 Absolute Lymphs - External 2.5 1.2 - 4.9 Absolute Monos - External 0.4 0.1 - 1.2 Absolute Eos - External 0.2 0.0 - 0.4 Absolute Basos - External 0.1 0.0 - 0.2 Abs Immature Grans - External 0.32(A) 0.0 - 0.03 Other Cells - External Blood (Blood) 06/14/2025 11: 46 AM EST us Historical Provider LAB BLOOD BKR ORDERABLES Final Result documented in this encounter Visit Diagnoses Not on filedocumented in this encounter Care Teams Party Plan Salesperson Relationship Specialty Start Date End Date Binh Lopez NP [address] [place] [address] PCP - General Family Medicine 08/22/21 documented as of this encounter Additional Source Comments The information contained in this document represents components of the legal health record. It is not the complete legal health record.[facility]
--- OUTSIDE RECORDS SUMMARY | 2025-06-21 16:59 | XMS_ITS | Encounter Summary ---
Author Organization [facility] Address [address] [place] [address] [address] [place] [address] Phone Care Team Providers Care Inspector Wire Rope Name Role Phone JewellsánchezBinh MARKING DEVICES ASSEMBLER Primary Care Provider + Encounter Details Date Type Department Care Team (Late st Contact Info) Description 12/16/2021 Transcribe Orders Virtual Department 30 [place] [address] Luciano Pimentel MD, MS [address] [address] [email or web address] Social History Tobacco Use Types Packs/Day Years [...] Description 07/24/2025 11:30 AM EST Office Visit [facility] Pulmonary-Hypertension Clinic [address] [facility], 2nd Floor, [address] [place] [address] Annette Sun MD [address] [place] [address] [address] [place] [address] PADDY@[email or web address] documented as of this encounter Visit Diagnoses Not on filedocumented in this encounter Care Teams Inspector Wire Rope Relationship Specialty Start Date End Date Binh Lopez NP [address] [place] [address] PCP - General Family Medicine 08/22/21 documented as of this encounter Additional Source Comments The information contained in this document represents components of the legal health record. It is not the complete legal health record.[facility]
--- OUTSIDE RECORDS SUMMARY | 2025-06-21 16:59 | XMS_ITS | Encounter Summary ---
Author Organization [facility] Address [address] [place] [address] [place] [address] Phone Care Team Providers Care Bell Cleaner Name Role Phone AreliBinh hernandez Elmo CASTELLANOS Primary Care Provider + Encounter Details Date Type Department Care Team (Late st Contact Info) Description 12/16/2021 Transcribe Orders Virtual Department 30 [place] [address] Annette Sun MD [address] [place] [address] PADDY@[email or web address] .[facility] Social History Tobacco Use Types [...] Description 07/24/2025 11:30 AM EST Office Visit [facility] Pulmonary-Hypertension Clinic [address] [place] [address], 2nd Floor, [address] [place] [address] Annette Sun MD [address] [place] [address] PADDY@[email or web address] .[facility] documented as of this encounter Visit Diagnoses Not on filedocumented in this encounter Care Teams Bell Cleaner Relationship Specialty Start Date End Date Binh Lopez NP [facility] [place] [address] PCP - General Family Medicine 08/22/21 documented as of this encounter Additional Source Comments The information contained in this document represents components of the legal health record. It is not the complete legal health record.[facility]
--- OUTSIDE RECORDS SUMMARY | 2025-06-21 16:59 | XMS_ITS | Clinical Summary ---
Author Organization [facility] Prior to 12/02/[address] [place] [address] Care Team Providers Care Medical Staff Director Name Role Phone Unavailable Primary Care Provider Unavailabl e Social History Tobacco Use Types Packs/Day Years Used Date Smoking Tobacco: Never Assessed Sex and Gender Information Value Date Recorded Sex Assigned at Not on file Gender Identity Not on file Sexual Orientation Not on file Plan of Treatment Not on file
--- OUTSIDE RECORDS SUMMARY | 2025-06-21 16:59 | XMS_ITS | Encounter Summary ---
Author Organization [facility] Address [address] [place] [address] Phone Care Team Providers Care Records Manager Name Role Phone Binh Lopez NP Primary Care Provider + Encounter Details Date Type Department Care Team (Late st Contact Info) Description 05/23/2024 Procedure Pass [facility] Echo Lab [address] [place] [address] Social History Tobacco Use Types Packs/Day Years [...] Description 07/24/2025 11:30 AM EST Office Visit [facility]Hypert[facility] Clinic [address] [place] [address] Floor, [address] [place] [address] Annette Sun MD [address] [place] [address] [address] [place] [address] PADDY@[email or web address] documented as of this encounter Visit Diagnoses Not on filedocumented in this encounter Care Teams Records Manager Relationship Specialty Start Date End Date Binh Lopez NP [facility] [place] [address] PCP - General Family Medicine 08/22/21 documented as of this encounter Additional Source Comments The information contained in this document represents components of the legal health record. It is not the complete legal health record.[facility]
--- OUTSIDE RECORDS SUMMARY | 2025-06-21 16:59 | XMS_ITS | Clinical Summary ---
Author Organization [facility] Address [address] [place] [address] Care Team Providers Care Catalog Specialist Name Role Phone Unavailable Primary Care Provider [...]
--- OUTSIDE RECORDS SUMMARY | 2025-06-21 16:59 | XMS_ITS | Encounter Summary ---
Author Organization [facility] Address [address] [place] [address] [place] [id number] Phone Care Team Providers Care Salvage Clerk Name Role Phone Binh Lopez NP Primary Care Provider + Encounter Details Date Type Department Care Team (Late st Contact Info) Description 02/23/2023 Procedure Pass [facility] Cardiac Ultrasound [address] [place] [address] Social History Tobacco Use Types Packs/Day Years [...] Description 07/24/2025 11:30 AM EST Office Visit [facility] Pulmonary[facility]Hypertension [facility] [address], [address]nd Floor, [address] [place] [address] Annette Sun MD [address] [facility] [address] [place] [address] [email or web address] documented as of this encounter Visit Diagnoses Not on filedocumented in this encounter Care Teams Salvage Clerk Relationship Specialty Start Date End Date Binh Lopez NP [address] [address] PCP - General Family Medicine 08/22/21 documented as of this encounter Additional Source Comments The information contained in this document represents components of the legal health record. It is not the complete legal health record.[facility]
--- OUTSIDE RECORDS SUMMARY | 2025-06-21 16:59 | XMS_ITS | Clinical Summary ---
Author Organization [facility] Address [address] [place] [address] Phone Care Team Providers Care Truck Hopper Name Role Phone Binh Lopez LARGE ANIMAL HUSBANDRY TECHNICIAN Primary Care Provider + Allergies Active Allergy [...] Encounters Date Type Department Care Team Description 06/19/2025 Documentation [facility] [address] [place] [address] [address], [address] [place] [address] Sindi Godinez, RN 06/19/2025 Orders Only [facility] [address] [facility], [address] Floor, [address] [place] [address] Sindi Godinez, RN 06/14/2025 Telephone [facility] [address], [address] Floor, [address] [place] [address] Sindi Godinez, CHILO 05/30/2025 Telephone [facility] [address], [address] Floor, [address] [place] [address] Sindi Godinez, RN 05/29/2025 Orders Only [facility] [address], [address] Floor, [address] [place] [address] Sindi Godinez, RN 05/28/2025 Telephone [facility] [address], [address] Floor, [address] [place] [address] Sindi Godinez, RN 05/10/2025 Telephone [facility] [address], [address] Floor, [address] [place] [address] Sindi Godinez, RN 05/10/2025 Orders Only [facility] [address], [address] Floor, [address] [place] [address] Sindi Godinez, RN 05/10/2025 Orders Only [facility] [address] [address], [address] Floor, [address] [place] [address] Sindi Godinez, RN 05/08/2025 Telephone [facility] [address] [address], [address] Floor, [address] [place] [address] Sindi Godinez, RN 04/24/2025 Telephone [facility] [address], [address] Floor, [address] [place] [address] Sindi Godinez, CHILO 04/18/2025 Telephone [facility] [address], [address] Floor, [address] [place] [address] Sindi Godinez, CHILO 04/18/2025 Orders Only [facility] [address], [address] Floor, [address] [place] [address] Sindi Godinez, CHILO 04/17/2025 Telephone [facility] [address], [address] Floor, [address] [place] [address] Sindi Godinez, CHILO 03/26/2025 Orders Only [facility] [address] [address], [address] Floor, [address] [place] [address] Sindi Godinez, CHILO 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) 03/26/2025 Orders Only [facility] [address] [address], [address] Floor, [address] [place] [address] Sindi Godinez, CHILO from Last 3 Months [...] Description 07/24/2025 11:30 AM EST Office Visit [facility] [address] [place] [address], [address] Floor, [address] [place] [id number] Annette Sun MD [address] [place], [place] [id number] [place] [address] [email or web address] Health Maintenance Due Date Last Done [...] Priority Date/Time Associated Diagnosis Comments OUTSIDE LAB 06/19/2025 CBC AND DIFFERENTIAL Routine 06/14/2025 11:46 AM EST OUTSIDE LAB 05/29/2025 CBC AND DIFFERENTIAL Routine [...] 3 Months Results * Outside Lab (Non-[facility]) (06/19/2025) Only the most recent of5 resultswithin the time period is included. us Scanning Interface Provider LAB BLOOD BKR ORDERA BLES Final Result * (ABNORMAL) CBC and Differential (06/14/2025 11:46 AM EST) Only the most recent of5 resultswithin the time period is included. WBC - External 10.3 4.8 - 10.8 [...] 11: 46 AM EST us Historical Provider MD LAB BLOOD BKR ORDERABLES [...] MD LAB BLOOD BKR ORDERABLES Final Result from Last 3 Months Insurance [facility] A[facility] A[facility] A[facility] ACO Member Subscriber Plan / Payer (Ef fective 2017-Present) Name:Laura Golden Relation to Subscriber:Self Name:Laura Golden Payer ID:[id number] Group ID:[id number] Type:Medicaid Address: [place] [id number] [place] [address] [employer] [id number] [facility] Care Teams Truck Hopper Relationship Specialty Start Date End Date Binh Lopez NP [address] [facility] [place] [address] PCP - General Family Medicine 08/22/21 Additional Source Comments The information contained in this document represents components of the legal health record. It is not the complete legal health record.[facility]
== END 2025-06-21 13:04 | disposition home or self-care (01) ==
LOC: HO.BBR 13:03
PROVIDERS: PCP Nurse Practitioner Family; Visit Provider Internal Medicine Medical Oncology
DX: D75.1 Secondary polycythemia (principal)
CPT/HCPCS: 36415; 85007; 85018; 85027; 99195